=== PATIENT | male | born 1950 | race Caucasian/White ===

== ENCOUNTER 2020-11-21 06:07 | Outpatient (REF) | payer MEDICARE, SELFPAY ==
[2020-11-21 11:22] LABS: MANUAL DIFF FLAG NO
[2020-11-21 11:39] LABS: Basophils Absolute Auto 0.1 X10*3/uL (0.0-0.2); Basophils Percent Auto 0.9 % (0-2); Eosinophils Absolute Auto 0.2 X10*3/uL (0.0-0.4); Eosinophils Percent Auto 2.8 % (0-4); Hematocrit 47.7 % (42-52); Hemoglobin 15.7 g/dl (14.0-18.0); Imm Gran Abs Auto 0.03 X10*3/uL (0.00-0.03); Imm Gran Pct Auto 0.4 % (0.0-0.4); Lymphocytes Absolute Auto 1.1 X10*3/uL (1.2-4.9); Lymphocytes Percent Auto 16.3 % (20-40); Mean Corpuscular HGB Conc 32.9 g/dl (31.0-36.0); Mean Corpuscular Hemoglobin 31.9 pg (27.0-33.0); Mean Platelet Volume 9.8 fL (9.4-12.4); Monocytes Absolute Auto 0.7 X10*3/uL (0.1-1.2); Monocytes Percent Auto 10.2 % (2-11); Neutrophils Absolute Auto 4.8 X10*3/uL (2.0-8.3); Neutrophils Percent Auto 69.4 % (45-73); Platelet Count 201 X10*3/uL (160-400); Red Blood Count 4.92 X10*6/uL (4.60-5.80); Red Cell Distribution Width 12.9 % (11.0-16.0); White Blood Count 6.9 X10*3/uL (4.8-10.8)
[2020-11-21 11:56] LABS: Alanine Aminotransferase 18 U/L (0-40); Albumin Level 4.2 g/dL (3.5-5.0); Alkaline Phosphatase 46 U/L (39-117); Anion Gap 14 (12-20); Aspartate Amino Transferase 16 U/L (5-37); Bilirubin Total 0.9 mg/dL (0.0-1.0); Blood Urea Nitrogen 15 mg/dL (9-16); Calcium 8.9 mg/dL (8.4-10.2); Carbon Dioxide 30 mmol/L (22-29); Chloride 103 mmol/L (96-108); Cholesterol 158 mg/dL; Estimated Glomerular Filt Rate > 60; Glucose Fasting 140 mg/dL (60-99); HDL Cholesterol 43 mg/dL; LDL Cholesterol Calculated 77 mg/dl; Potassium 4.4 mmol/L (3.3-5.1); Sodium 143 mmol/L (135-145); Total Protein 6.6 g/dL (6.5-8.0); Triglycerides 194 mg/dL
[2020-11-21 12:20] LABS: Prostate Specific Antigen Scr 0.49 ng/mL (<0.05-4.0); T4 Thyroxine 5.4 ug/dL (4.5-12.0); Thyroid Stimulating Hormone 2.32 uIU/mL (0.32-4.0)
[2020-11-21 12:26] LABS: Creatinine Urine 166.68 mg/dL; Microalbum/Creatinine Ratio Ur 12.5 ug/mg cr
[2020-11-22 17:44] LABS: Folate 18.5 ng/mL (> or = 4.0); Vitamin B12 722 pg/mL (200-900)
== END 2020-11-21 06:08 | disposition home or self-care (01) ==
LOC: HO.HMGCLDS 06:07
PROVIDERS: PCP Internal Medicine; Visit Provider Internal Medicine
DX: E11.65 Type 2 diabetes mellitus with hyperglycemia (principal); E78.00 Pure hypercholesterolemia, unspecified; G62.9 Polyneuropathy, unspecified; J45.909 Unspecified asthma, uncomplicated; G47.33 Obstructive sleep apnea (adult) (pediatric); M54.5 Low back pain
CPT/HCPCS: 36415; 80053; 80061; 82043; 82607; 82746; 84153; 84436; 84443; 85025

== ENCOUNTER 2021-03-06 10:06 | Outpatient (REF) | payer MEDICARE, SELFPAY ==
--- NOTE | 2021-03-06 10:11 | ECG_ITS ---
Test Reason : SOB Blood Pressure : / mmHG Vent. Rate : 115 BPM Atrial Rate : 147 BPM P-R Int : 210 ms QRS Dur : 104 ms QT Int : 326 ms P-R-T Axes : 076 019 025 degrees QTc Int : 450 ms Sinus tachycardia with 1st degree A-V block with occasional Premature ventricular complexes and PACs Incomplete right bundle branch block Borderline ECG When compared with ECG of 06-APR-2009 08:20, Premature ventricular complexes are now Present NE interval has increased Vent. rate has increased BY 59 BPM Referred By: Daniel Romano Electronically Signed By:Prashant Navas
[2021-03-06 10:29] LABS: MANUAL DIFF FLAG NO
[2021-03-06 10:37] LABS: Basophils Absolute Auto 0.1 X10*3/uL (0.0-0.2); Basophils Percent Auto 0.6 % (0-2); Eosinophils Absolute Auto 0.2 X10*3/uL (0.0-0.4); Eosinophils Percent Auto 2.2 % (0-4); Hematocrit 46.4 % (42-52); Hemoglobin 15.6 g/dl (14.0-18.0); Imm Gran Abs Auto 0.05 X10*3/uL (0.00-0.03); Imm Gran Pct Auto 0.6 % (0.0-0.4); Lymphocytes Absolute Auto 1.5 X10*3/uL (1.2-4.9); Mean Corpuscular HGB Conc 33.6 g/dl (31.0-36.0); Mean Corpuscular Hemoglobin 31.8 pg (27.0-33.0); Mean Corpuscular Volume 94.7 fL (80-98); Mean Platelet Volume 9.3 fL (9.4-12.4); Monocytes Absolute Auto 0.7 X10*3/uL (0.1-1.2); Monocytes Percent Auto 8.7 % (2-11); Neutrophils Absolute Auto 5.4 X10*3/uL (2.0-8.3); Neutrophils Percent Auto 68.9 % (45-73); Platelet Count 218 X10*3/uL (160-400); Red Cell Distribution Width 12.5 % (11.0-16.0); White Blood Count 7.9 X10*3/uL (4.8-10.8)
[2021-03-06 11:02] LABS: B Type Natriuretic Peptide 37 pg/mL (<100)
[2021-03-06 11:11] LABS: Alanine Aminotransferase 21 U/L (0-40); Albumin Level 4.3 g/dL (3.5-5.0); Alkaline Phosphatase 43 U/L (39-117); Anion Gap 13 (12-20); Aspartate Amino Transferase 22 U/L (5-37); Blood Urea Nitrogen 12 mg/dL (9-16); Calcium 9.5 mg/dL (8.4-10.2); Carbon Dioxide 29 mmol/L (22-29); Chloride 103 mmol/L (96-108); Estimated Glomerular Filt Rate > 60; Glucose Random 129 mg/dL (60-115); Potassium 5.1 mmol/L (3.3-5.1); Sodium 140 mmol/L (135-145); Total Protein 6.7 g/dL (6.5-8.0)
== END 2021-03-06 10:07 | disposition home or self-care (01) ==
LOC: HO.LAB 10:06
PROVIDERS: PCP Internal Medicine; Visit Provider Internal Medicine
DX: R06.02 Shortness of breath (principal); N52.9 Male erectile dysfunction, unspecified
CPT/HCPCS: 36415; 80053; 83880; 85025; 93005

== ENCOUNTER → 2021-04-23 12:09 | Outpatient (REF) | payer MEDICARE, SELFPAY ==
--- NOTE | 2021-04-23 12:13 | CA_ITS ---
Transthoracic Echocardiogram Patient (Last, First, Middle): Festus Munoz R Gender: Male Date of : 1950 Age: 70 Procedure Date: 04/23/2021 Procedure Type: Transthoracic Echocardiogram Location: OP Height: 177.8 cm Weight: 136.08 kg BSA: 2.48 m2 Heart Rate: bpm BP: 134 / 70 mmHg Second Cook And Baker: TAD Referring MD: Daniel Romano MD Logistics Director: Jaime Bailey MD Symptoms: N52.9 - Male erectile dysfunction, unspecified Study Quality: Technically Difficult ECG Rhythm: Sinus Conclusions: - 1. Technically difficult study 2. Normal LV systolic function with impaired relaxation filling pattern 3. Cardiac valves not well visualized but cardiac valvular Doppler within normal limits 4. No gross pericardial effusion Findings Procedure Information The patient receives contrast. Left Ventricle Normal left ventricular size, thickness, and systolic function. The visually estimated ejection fraction is between 55-60%. Spectral Doppler is indicative of an impaired relaxation filling pattern. E/E prime ratio is between 8 and 15 consistent with indeterminate filling pressures. Right Ventricle The right ventricle was not well visualized. Atria The left atrium was not well visualized. Interatrial shunt cannot be excluded. The right atrium was not well visualized. Aortic Valve The aortic valve was not well visualized. There is no aortic valve stenosis. There is no aortic valve regurgitation. Mitral Valve The mitral valve was not well visualized. There is trace mitral valve regurgitation. There is no mitral valve stenosis. Pulmonic Valve The pulmonic valve was not well visualized. Tricuspid Valve The tricuspid valve was not well visualized. Tricuspid regurgitation envelope is inadequate for calculation of right ventricular systolic pressure. Great Vessels The aorta was not well visualized. The pulmonary artery was not well visualized. Venous The inferior vena cava is normal in size and collapses greater than 50% with inspiration. Pericardium/Pleural There is no evidence of pericardial effusion. Prior Study Comparison No previous study in the last 5 years for comparison Measurements 2D Linear Measurements RVIDd: 3.51 RVIDd Index: 1.42 IVSd: 0.83 0.6-0.9/0.6-1.0 cm LVIDd: 5.43 3.9-5.3/4.2-5.9 cm LVIDd Index: 2.19 2.4-3.2/2.2-3.1 cm/m2 LVIDs: 4.11 2.0-3.6 cm LVPWd: 1.08 0.7-1.1 cm Ao Root: 2.90 2.1-3.5 cm LA Diam: 4.50 2.7-3.8/3.0-4.0 cm LAIDs Index: 1.81 1.5-2.3 cm/m2 LV Mass: 245.09 67-162/88-224 g LV Mass Index: 98.83 43-95/49-115 g/m2 LVOT Diam: 2.20 3.0+(-)1.3 cm Mitral Valve MV Pk E: 0.65 MV PK A: 0.94 MV Decel Time: 207.00 E/A: 0.70 E'Lateral: 8.92 E'Medial: 6.64 E/E' Med: 9.80 E/E' Lat: 7.30 Aortic Valve AoV Pk Shai: 1.70 AoV Mn Shai: 1.38 AoV VTI: 0.33 AoV Pk Grad: 12.00 Aov Mn Grad: 8.00 BETTE Cont.VTI: 2.22 LVOT LVOT Pk Shai: 0.91 LVOT Mn Shai: 0.61 LVOT VTI: 0.19 LVOT Pk Grad: 3.00 LVOT Mn Grad: 2.00 LVOT Diam: 2.20 LVOT Area: 3.80 Diastolic Function MV Pk E: 0.65 MV Pk A: 0.94 E/A: 0.70 E'Medial: 6.64 E/E' Med: 9.80 E' Laterial: 8.92 E/E' Lat: 7.30 Tricuspid Valve RA Press: 8.00 Great Vessels Aorta Ao Root-2D: 2.90 2.0-3.7 cm Ao Asc: 3.70 2.1-3.4 cm Ao Arch: 3.70 Updated in Other Vendor System with Status of Final Jaime Bailey MD electronically signed on 04/23/2021 5:15:17 PM with status of Final
== END ==
LOC: HO.CARD 12:09
PROVIDERS: Visit Provider Internal Medicine
DX: N52.9 Male erectile dysfunction, unspecified (principal)
CPT/HCPCS: 93306; Q9957

== ENCOUNTER 2021-11-24 11:13 | Emergency (ER) | payer MEDICARE, SELFPAY ==
--- NOTE | ~2021-11-24 | CT_ITS ---
EXAMINATION: CT HEAD WITHOUT CONTRAST CT CERVICAL SPINE WITHOUT CONTRAST CLINICAL INFORMATION: Fall. Head injury. COMPARISON: No relevant prior imaging. TECHNIQUE: Biometrics Experimentalist images were obtained. CT imaging of the head and cervical spine was performed without contrast. Data was reformatted into multiplanar images at the acquisition workstation. This CT examination was performed using dose optimization techniques as appropriate, including one or more of the following: Automated exposure control, iterative reconstruction, and adjustment of technique factors (mA and/or kVp) according to patient size (this includes techniques or standardized protocols for targeted exams where dose is matched to indication/reason for exam). DLP: 1676 mGy-cm. FINDINGS: Head: There is no acute intracranial hemorrhage or abnormal extra-axial collection. No intracranial mass effect or hydrocephalus. Lateral and third ventricles are normal. A few scattered nonspecific foci of hypoattenuation are visualized within the periventricular white matter that most likely represent a chronic manifestation of small vessel ischemia. Oswald-white matter differentiation is otherwise preserved and there is no evidence of acute territorial infarct. The calvarium and skull base are intact. Mastoid air cells and middle ear cavities are well aerated. No active paranasal sinus disease. Cervical spine: There is nonspecific straightening of the cervical lordosis. Alignment is otherwise normal. Vertebral heights are preserved. Bridging bone fuses the C3 and C4 vertebral segments. There is also an exuberant anterior disc osteophyte complex that fuses the C7 and T1 vertebra. No evidence of acute fracture. No abnormal prevertebral soft tissue swelling. There is advanced degenerative arthrosis of the atlantodental joint. Canal patency is not well assessed on this examination due to inherent limitations of CT without intrathecal contrast. Bulging discs in conjunction with buckling of the ligamenta flava causes at least mild canal stenosis at multiple levels. Visualized soft tissues of the neck including the thyroid gland are normal. Lung apices are clear. CT/CT head/brain wo con IMPRESSION: Head: No acute intracranial hemorrhage. There are a few scattered chronic small vessel ischemic changes within the periventricular white matter. No evidence of acute territorial infarct. Cervical spine: There is no acute fracture and no posttraumatic spinal subluxation. There is advanced multilevel degenerative spondylosis of the cervical spine. Bulging discs in conjunction with buckling of the ligamenta flava causes at least mild canal stenosis at multiple levels. If there are clinical symptoms of compressive myelopathy then a dedicated cervical spine MRI can be obtained for better anatomic characterization of the cord and canal.
--- NOTE | ~2021-11-24 | XR_ITS ---
EXAMINATION: XR SHOULDER, LEFT CLINICAL INFORMATION: Fall COMPARISON: None TECHNIQUE: 3 views of the left shoulder. FINDINGS: Bone alignment is normal. No fracture or dislocation is seen. There is arthritis at the glenohumeral and acromioclavicular joints. Soft tissues are unremarkable. XR/XR shoulder LT min 2V IMPRESSION: Severe arthritis. No fracture or dislocation.
[2021-11-24 11:21] VITALS: BP 173/95; PULSE 81; O2SAT 95
[2021-11-24 12:44] VITALS: BP 157/84; PULSE 75; RESP 16; TEMP 36.4; O2SAT 95; BMI 43.2
[2021-11-24] MEDS: oxyCODONE HCl Immed Release 5 MG TABLET PO (14:01)
[2021-11-24 14:52] VITALS: BP 138/67; PULSE 80; RESP 18; TEMP 36.3; O2SAT 94
--- NOTE | 2021-11-24 15:47 | ED.FALL ---
HPI - Fall General Chief Complaint: Fall Stated Complaint: L SHOULDER PAIN S/P FALL Time Seen by Provider: 11/24/21 13:43 Source: patient Mode of arrival: ambulatory Limitations: no limitations History of Present Illness HPI Narrative: 71-year-old male presents to ED for fall. Patient states yesterday he was doing some [employer] work outside and he slipped and tripped and fell onto his left shoulder. Patient denies hitting head or loss of consciousness. Patient did not want to come to the hospital but brought him to the ED today to be evaluated. Patient denies having any chest pain, headache, dizziness, abdominal pain, or shortness of breath before falling. Patient slipped and fell Patient only states taking aspirin. Related Data Home Medications Medication Instructions Recorded Confirmed CPAP #1 ea 12/03/20 09/18/21 Previous Rx's Medication Instructions Recorded sildenafil 100 mg tablet 100 mg PO DAILY PRN #4 tab 03/05/21 lisinopril 5 mg tablet 5 mg PO DAILY #90 tab 03/10/21 metformin 500 mg tablet 500 mg PO DAILY 90 Days #90 tab 03/10/21 simvastatin 40 mg tablet 40 mg PO BEDTIME #90 tab 03/10/21 trazodone 100 mg tablet 100 mg PO BEDTIME 90 Days #90 tab 03/10/21 gabapentin 600 mg tablet 600 mg PO BID 90 Days #180 tab 06/10/21 semaglutide (Ozempic) 0.5 mg (0.4 mL) SUBCUT QWEEK 30 09/18/21 Days #2 ml oxycodone-acetaminophen 5 mg-325 1 tab PO Q8H PRN #9 tab 11/24/21 mg tablet (Percocet) Allergies Allergy/AdvReac Type Severity Reaction Status Date / Time terbinafine [From LAMISIL] AdvReac Intermediate GI UPSET Verified 09/18/21 08:44 Lamisil Allergy Unknown Stomach Uncoded 03/05/21 10:33 Upset Review of Systems Review of Systems: left shoulder pain Yes all other systems are reviewed and are negative [facility] Past Medical History Medical History (Updated 11/24/21 @ 16:12 by TRISTA Perez) Aortic dilatation Asthma Cholelithiasis Chronic low back pain Erectile dysfunction Hypercholesterolemia Hypertension Obesity Obstructive sleep apnea Peripheral neuropathy Type 2 diabetes mellitus with hyperglycemia Surgical History H/O lumbar discectomy History of left knee replacement History of pericardiectomy History of right hip replacement History of total right knee replacement S/P ORIF (open reduction internal fixation) fracture Family History Family History (Updated 06/10/21 @ 08:44 by DAVID Reid) Mother Mental health disorder Social History Social History Housing: House Alcohol intake: current Alcohol intake frequency: a few times a week Patient Tobacco Use Status: Former Tobacco user Years Smoked: stopped 1994 e-Cigarette/Vaping Use: Never Used Second Hand Smoke Exposure: Yes Advance Directives: Yes Advance Directives Information Provided: No Advance Directives on File: No service: Yes Current occupational status: retired Physical Exam Vital Signs: Vital Signs: Last Vital Signs Temp 97.4 F 11/24/21 14:52 Pulse 80 11/24/21 14:52 Resp 18 11/24/21 14:52 BP 138/67 11/24/21 14:52 Pulse Ox 94 11/24/21 14:52 BMI result Body Mass Index 43.2 Const: General: cooperative, healthy appearing, comfortable, no acute distress and well developed Orientation/consciousness: patient oriented x3 HENMT: Head: Yes normal to inspection, Yes No palpable skull fracture present, Yes normocephalic, Yes atraumatic and No abrasion Eyes: General: appearance normal, both eyes and all related structures Neck: Neck: Yes normal visual inspection, Yes full ROM, Yes no lymphadenopathy, Yes no meningeal signs, Yes trachea midline, Yes supple, No anterior neck swelling and No tender Chest: Chest palpation & inspection: normal inspection of the chest and normal palpation of entire chest wall Resp: Effort & Inspection: normal respiratory effort and able to speak in complete sentences Auscultation: clear to auscultation bilaterally Cardio: Jugular venous distension: no JVD Heart sounds: S1 normal heart sound present and S2 normal heart sound present GI: Inspection: Yes normal to inspection and No abdominal wall ecchymosis Palpation (GI): Soft to palpation, not firm, nontender, no guarding and not rigid : General: No CVA tenderness and Yes no CVA tenderness Back/Spine/Pelvis: Back: no CVA tenderness, No CVA tenderness and No back tenderness Skin: General skin exam: no rashes or lesions noted and elasticity normal Neuro: General: patient oriented x3, gait normal, tone normal, no meningeal signs and CN's II-XI intact bilaterally Extrem: General: Yes normal to inspection and Yes full ROM Shoulder/upper arm images: 1. positive for ecchymosis on inspection. Positive for tenderness on palpation. Negative for any crepitus. Patient able to move shoulder but with pain. Motor/ neuro /vascular intact. Negative for erythema. Psych: Appearance: grossly normal, well kempt and not disheveled Course Course Course Narrative: Patient denies hitting head on the ground but showed video which showed patient falling and hitting his hand on the bottom of a stand. pATIENT'S head SEENED HITTING the botTOM OF STAND WHEN HE FELL BUT HE STATES thAT t there was no contact to his head but and I think otherwise so head CT scan cervical spine ordered. Shoulder x-ray ordered. Reevaluation(s) Reevaluation #1: Head CT normal. Cervical spine shows disc bulging but no fracture. Shoulder x-ray normal. Patient given oxycodone for pain relief. PATIENT GIVEN COPY OF IMAGING TOLD TO FOLLOW WITH PRIMARY CARE PROVIDER. PATIENT PLACED IN SLING INFORMED NOT TO KEEP ARM IN SLING ALL THE TIME DUE TO FROZEN SHOULDER. Time: 16:02 MDM - Fall MDM Narrative Medical decision making narrative: fall. Shoulder contusion. Shoulders pain Discharge Plan Discharge Clinical Impression: Acute shoulder pain, Bulging of cervical intervertebral disc Patient Disposition: Home, Self-Care Additional Instructions: x-ray came back negative for any fracture. Head CT and cervical spine came back negative for any brain bleed on neck fracture. Cervical spine CT shows disc bulging. You be discharged with pain medication. Please follow-up primary care provider for MRI of shoulder if pain does not improve. Please follow-up with primary care provider Prescriptions: New oxycodone-acetaminophen [Percocet] 5-325 mg tablet 1 tab PO Q8H PRN (Reason: pain) Qty: 9 0RF Rx Instructions: side effect is drowsiness. Do not take at home or while driving. No Action trazodone 100 mg tablet 100 mg PO BEDTIME 90 Days Qty: 90 3RF metformin 500 mg tablet 500 mg PO DAILY 90 Days Qty: 90 3RF simvastatin 40 mg tablet 40 mg PO BEDTIME Qty: 90 3RF lisinopril 5 mg tablet 5 mg PO DAILY Qty: 90 3RF (DME) CPAP 0 .Route .MEDSUPPLY Qty: 1 0RF sildenafil 100 mg tablet 100 mg PO DAILY PRN (Reason: sexual activity) Qty: 4 5RF Rx Instructions: administer 30 minutes to 4 hours before activity gabapentin 600 mg tablet 600 mg PO BID 90 Days Qty: 180 3RF Ozempic 0.25 mg or 0.5 mg(2 mg/1.5 mL) pen injector 0.5 mg subcut QWEEK 30 Days Qty: 2 3RF Rx Instructions: for 4 doses Interventions: ED Discharge Assessment Last Done: 11/24/21 16:32 Discharge Date/Time: 11/24/21 16:32 Print Language: Chilean
== END 2021-11-24 16:32 | disposition home or self-care (01) ==
PROVIDERS: Emergency Provider Emergency Medicine; PCP Internal Medicine
DX: G89.11 Acute pain due to trauma (principal); M25.512 Pain in left shoulder; M50.83 Other cervical disc disorders, cervicothoracic region; I10 Essential (primary) hypertension; E11.9 Type 2 diabetes mellitus without complications
CPT/HCPCS: 70450; 72125; 73030; 99284

== ENCOUNTER 2021-12-19 06:06 | Outpatient (REF) | payer MEDICARE, SELFPAY ==
[2021-12-19 11:43] LABS: MANUAL DIFF FLAG NO
[2021-12-19 11:49] LABS: Basophils Absolute Auto 0.1 X10*3/uL (0.0-0.2); Basophils Percent Auto 0.9 % (0-2); Eosinophils Absolute Auto 0.3 X10*3/uL (0.0-0.4); Hematocrit 44.3 % (42.0-52.0); Hemoglobin 14.4 g/dl (14.0-18.0); Imm Gran Abs Auto 0.04 X10*3/uL (0.00-0.03); Imm Gran Pct Auto 0.6 % (0.0-0.4); Lymphocytes Absolute Auto 1.2 X10*3/uL (1.2-4.9); Lymphocytes Percent Auto 17.8 % (20-40); Mean Corpuscular HGB Conc 32.5 g/dl (31.0-36.0); Mean Corpuscular Hemoglobin 32.7 pg (27.0-33.0); Mean Corpuscular Volume 100.7 fL (80.0-98.0); Mean Platelet Volume 9.5 fL (9.4-12.4); Monocytes Absolute Auto 0.8 X10*3/uL (0.1-1.2); Monocytes Percent Auto 11.4 % (2-11); Neutrophils Absolute Auto 4.5 x10*3/uL (2.0-8.3); Neutrophils Percent Auto 65.3 % (45-73); Platelet Count 214 X10*3/uL (160-400); Red Cell Distribution Width 13.3 % (11.0-16.0); White Blood Count 6.9 X10*3/uL (4.8-10.8)
[2021-12-19 12:04] LABS: Alanine Aminotransferase 28 U/L (0-40); Albumin Level 3.9 g/dL (3.5-5.0); Alkaline Phosphatase 90 U/L (39-117); Anion Gap 13 (12-20); Aspartate Amino Transferase 21 U/L (5-37); Bilirubin Total 0.7 mg/dL (0.0-1.0); Blood Urea Nitrogen 14 mg/dL (9-16); Carbon Dioxide 31 mmol/L (22-29); Chloride 103 mmol/L (96-108); Cholesterol 155 mg/dL; Estimated Glomerular Filt Rate > 60; Glucose Random 148 mg/dL (60-115); HDL Cholesterol 47 mg/dL; LDL Cholesterol Calculated 87 mg/dl; Potassium 4.7 mmol/L (3.3-5.1); Sodium 142 mmol/L (135-145); Total Protein 6.2 g/dL (6.5-8.0); Triglycerides 106 mg/dL
[2021-12-19 12:18] LABS: Estimated Average Glucose 134 mg/dL; Hemoglobin A1c % 6.3 %
[2021-12-19 12:26] LABS: Free T4 (Free Thyroxine) 0.96 ng/dL (0.71-1.85); Prostate Specific Antigen Scr 0.43 ng/mL (<0.05-4.0); Thyroid Stimulating Hormone 1.71 uIU/mL (0.32-4.0)
[2021-12-19 12:37] LABS: Creatinine Urine 160.03 mg/dL; Microalbum/Creatinine Ratio Ur 6.8 ug/mg cr
[2021-12-19 12:55] LABS: Folate 17.5 ng/mL (> or = 4.0); Vitamin B12 847 pg/mL (200-900)
== END 2021-12-19 06:07 | disposition home or self-care (01) ==
LOC: HO.HMGCLDS 06:06
PROVIDERS: PCP Internal Medicine; Visit Provider Internal Medicine
DX: Z12.5 Encounter for screening for malignant neoplasm of prostate (principal); E11.65 Type 2 diabetes mellitus with hyperglycemia; E78.00 Pure hypercholesterolemia, unspecified
CPT/HCPCS: 36415; 80053; 80061; 82043; 82607; 82746; 83036; 84153; 84439; 84443; 85025

== ENCOUNTER 2022-03-04 07:00 | Outpatient (RCR) | payer MEDICARE, SELFPAY ==
--- NOTE | 2022-01-09 11:13 | MHC.PT.EP ---
[facility] [place] Office [place] Office [place] Office [address] [phone] F: [phone] F: [phone] F: [phone] F: [phone] Physical Therapy Plan of Care Date of Evaluation: Date of Surgery: n/a Diagnosis: Pain in L shoulder Assessment: Patient is a 71 year old R handed male who presents with s/s consistent with L shoulder pain. 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 Patient past medical history includes L frozen shoulder, R femur fracture, 2 TKA and 1 OSKAR. Current impairments include pain, posture, ROM, strength, activity tolerance and functional mobility. Functional limitations include decreased ability to use L UE for all functional actvities. Patient is motivated with good rehab potential. Skilled PT will address impairments and functional limitations in order to achieve goals. Frequency and Duration: The patient will be seen 2x/week for 5 weeks Short Term Goals: I with HEP - 2 weeks AROM flexion and abduction to 80 - 3 weeks Able to ER to neutral with AROM - 3 weeks Long-Term Goals: AROM flexion and abd to 120, ER to 30 - 5 weeks Strength 4/5 grossly - 5 weeks SPADI 20/130 or better - 5 weeks Treatment Plan: Modalities to reduce pain, spasms and effusion. Manual therapy to restore motion and function. Therapeutic exercise to improve strength and flexibility. Neuromuscular re-education for posture and balance. Therapeutic activities to return to functional activities of daily living. Electronically signed by: Sandeep Harmon PT Please sign and return to therapist. Thank you for your referral.
--- NOTE | 2022-06-04 10:26 | MHC.PT.DC ---
[facility] [place] Office [place] Office [place] Office [address] [phone] F: [phone] F: [phone] F: [phone] F: [phone] Physical Therapy Discharge Report Diagnosis: Pain in L shoulder Date of Surgery: n/a Date of Evaluation: 01/08/22 Date of Discharge: 03/16/22 Treatments to Date: 14 Cancellations to Date: No Shows to Date: Discharge Status: Improved Function Independent with HEP Discharge Summary: 03/04/22: I with HEP. AAROM flexion to 102. ER to 20 AROM. Strenght 4-/5 grossly with available ROM. SPADI 13/130. Pain 3/10 with daily activities. He did progress well and is much closer to baseline before shoulder injury. He is appropriate to d/c to HEP at this time. 03/02/22: pt I with program. issued all necessary bands. we will plan to d/c to HEP NV. 02/25/22: pt with no new s/s. progressed with strength. as pt progress on ROM has slowed, we discussed plan and we will plan to d/c to HEP Next Week! 02/23/22: pt has been feeling improved strength. we added 2.2# in supine with good response. he may be reaching his max for ROM improvement as per his report he is similar to where he was prior to injury. 02/20/22: pt has been having less pain. more functional strength noted with functional/daily activities including working at the [employer]. we will continue to progress while he is improving and discern when to transition to HEP. 02/18/22: returning after covid. no adverse reactions. he was able to keep up with PT though missed appts. ROM is still improving slowly 02/05/22: we added adduction to shoulder strength. no adverse reactions. pt is progressing but slowly, likely due to chronic shoulder pathology. 02/02/22: pt flexion still improving slowly. very little resistance tolerated with flexion. moves with compensated pattern suggesting persistent RTC injury. 01/28/22: progressing with ROM and strength. pt demonstrating good carryover with ex. still with significant compensation strategies. 01/26/22: pt progressing well with ROM. adding strength intervention as appropriate. notes functional improvements related to strength use of LUE 01/21/22: pt has been compliant with HEP. progressed today with ex, reps and resistance. continue to progress as tolerated. AAROM flexion to 94. 01/14/22: pt progressed with ROM with cane. to issue updated HEP NV barring any setbacks with HEP. 01/12/22: pt progressed with strength and ROM. purchased pulleys for home and initiated this in HEP. continue to progress as tolerated. ER still short of neutral. Patient is a 71 year old R handed male who presents with s/s consistent with L shoulder pain. 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 Patient past medical history includes L frozen shoulder, R femur fracture, 2 TKA and 1 OSKAR. Current impairments include pain, posture, ROM, strength, activity tolerance and functional mobility. Functional limitations include decreased ability to use L UE for all functional actvities. Patient is motivated with good rehab potential. Skilled PT will address impairments and functional limitations in order to achieve goals. Electronically signed by: Sandeep Harmon, PT Please sign and return to therapist. Thank you for your referral.
== END 2022-06-04 10:26 | disposition home or self-care (01) ==
LOC: HO.PTCHIC 07:00
PROVIDERS: PCP Internal Medicine; Visit Provider Internal Medicine
DX: M25.512 Pain in left shoulder (principal); W19.XXXD Unspecified fall, subsequent encounter
CPT/HCPCS: 97110; 97162

== ENCOUNTER 2023-03-03 06:01 | Outpatient (REF) | payer MEDICARE, SELFPAY ==
[2023-03-03 11:14] LABS: MANUAL DIFF FLAG NO
[2023-03-03 11:24] LABS: Basophils Absolute Auto 0.1 X10*3/uL (0.0-0.2); Basophils Percent Auto 0.7 % (0-2); Eosinophils Absolute Auto 0.2 X10*3/uL (0.0-0.4); Hemoglobin 14.8 g/dl (14.0-18.0); Imm Gran Abs Auto 0.04 X10*3/uL (0.00-0.03); Imm Gran Pct Auto 0.5 % (0.0-0.4); Lymphocytes Absolute Auto 1.4 X10*3/uL (1.2-4.9); Lymphocytes Percent Auto 18.3 % (20-40); Mean Corpuscular HGB Conc 32.9 g/dl (31.0-36.0); Mean Corpuscular Hemoglobin 32.2 pg (27.0-33.0); Mean Corpuscular Volume 97.8 fL (80.0-98.0); Mean Platelet Volume 9.9 fL (9.4-12.4); Monocytes Absolute Auto 0.8 X10*3/uL (0.1-1.2); Monocytes Percent Auto 10.9 % (2-11); Neutrophils Percent Auto 67.6 % (45-73); Platelet Count 213 X10*3/uL (160-400); Red Cell Distribution Width 13.2 % (11.0-16.0); White Blood Count 7.4 X10*3/uL (4.8-10.8)
[2023-03-03 11:46] LABS: Estimated Average Glucose 126 mg/dL
[2023-03-03 12:01] LABS: Alanine Aminotransferase 23 U/L (0-40); Albumin Level 3.9 g/dL (3.5-5.0); Alkaline Phosphatase 43 U/L (39-117); Anion Gap 12 (12-20); Aspartate Amino Transferase 22 U/L (5-37); Bilirubin Total 1.5 mg/dL (0.0-1.0); Blood Urea Nitrogen 14 mg/dL (9-16); Calcium 9.7 mg/dL (8.4-10.2); Carbon Dioxide 28 mmol/L (22-29); Chloride 103 mmol/L (96-108); Cholesterol 154 mg/dL; Estimated Glomerular Filt Rate > 60; Glucose Random 143 mg/dL (60-115); HDL Cholesterol 41 mg/dL; LDL Cholesterol Calculated 92 mg/dl; Sodium 138 mmol/L (135-145); Total Protein 6.7 g/dL (6.5-8.0); Triglycerides 108 mg/dL
[2023-03-03 12:14] LABS: Creatinine Urine 141.75 mg/dL; Microalbum/Creatinine Ratio Ur 23.2 ug/mg cr
[2023-03-03 12:24] LABS: Folate 16.3 ng/mL (> or = 4.0); Vitamin B12 828 pg/mL (200-900)
== END 2023-03-03 06:02 | disposition home or self-care (01) ==
LOC: HO.HMGCLDS 06:01
PROVIDERS: PCP Internal Medicine; Visit Provider Internal Medicine
DX: E11.65 Type 2 diabetes mellitus with hyperglycemia (principal); E78.00 Pure hypercholesterolemia, unspecified
CPT/HCPCS: 36415; 80053; 80061; 82043; 82607; 82746; 83036; 84443; 85025

== ENCOUNTER 2023-06-21 11:22 | Outpatient (AMB) | payer MEDICARE, SELFPAY ==
[2023-06-21 11:30] VITALS: BP 132/68; PULSE 72; O2SAT 93; BMI 43.5
--- NOTE | 2023-06-21 11:30 | MHC.PC.OV ---
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 Allergies terbinafine [From LAMISIL] Adverse Reaction (Intermediate, Verified 06/21/23 11:31) GI UPSET Lamisil Allergy (Unknown, Uncoded 06/21/23 11:31) Stomach Upset Medication List - Last Reconciled 06/21/23 by Daniel Romano MD [CPAP ] fluticasone propionate 50 mcg/actuation (Flonase Allergy Relief) 2 sprays intranasal DAILY gabapentin 600 mg PO BID 90 days lactulose 20 grams (30 mL) PO BID lisinopril 5 mg PO DAILY metformin 500 mg PO BID 90 days semaglutide 2 mg (0.75 mL) subcut QWEEK 90 days sildenafil 100 mg PO DAILY PRN simvastatin 40 mg PO BEDTIME trazodone 100 mg PO BEDTIME 90 days Tobacco use date assessed: 06/21/23 Fall risk assessment: No Falls in past year Last assessed Fall Risk: 06/21/23 Dental Screening Dental Screen Date: 06/21/23 Did you have a dental visit in the last 12 months?: Yes Did you have a dental problem in the last 6 months where you did not have access to dental care?: No Was dental information given to patient?: Patient has dentist HPI 3 month f/u HPI Details 73-year-old obese male with controlled diabetes mellitus hypertension asthma hypercholesterolemia obstructive sleep apnea coming in for follow-up. Last seen in February 2023. Patient's colonoscopy is up-to-date [facility] Medical History (Updated 03/11/23 @ 11:38 by Daniel Romano MD) Aortic dilatation Cholelithiasis Obstructive sleep apnea Erectile dysfunction Hypercholesterolemia Obesity Peripheral neuropathy Asthma Type 2 diabetes mellitus with hyperglycemia Chronic low back pain Hypertension Surgical History S/P ORIF (open reduction internal fixation) fracture History of left knee replacement History of total right knee replacement History of right hip replacement History of pericardiectomy H/O lumbar discectomy Family History (Updated 06/10/21 @ 08:44 by DAVID Reid) Mother Mental health disorder Social History (Updated 03/11/23 @ 11:43 by Daniel Romano MD) Housing: House Alcohol intake: current Alcohol intake frequency: a few times a week Patient Tobacco Use Status: Former Tobacco user Years Smoked: stopped 1994 e-Cigarette/Vaping Use: Never Used Second Hand Smoke Exposure: Yes service: Yes Current occupational status: retired Cognitive needs: No Hearing needs: Yes Vision needs: Yes Questionnaire Thrive Questionnaire Date Thrive assessed: 10/15/22 AUDIT C Alcohol Use Questionnaire (AUDIT-C) 1. How often do you have a drink containing alcohol?: 2-4 times a month 2. How many drinks containing alcohol do you have on a typical day when you are drinking?: 1 or 2 3. How often do you have six or more drinks on one occasion?: Never Total Score: 2 NAMITA-7 AMB Questionnaire NAMITA-7 Date NAMITA - 7 assessed: 10/15/22 Source: Developed by Drs. Mac Echeverria, Supriya Weston, Kyle Moon and colleagues, with an educational teofilo from [employer]. Physical exam (Primary Care) Vital Signs: Last Vital Signs Pulse 72 06/21/23 11:30 BP 132/68 06/21/23 11:30 Pulse Ox 93 06/21/23 11:30 Oxygen Delivery Method Room Air 06/21/23 11:30 BMI result Body Mass Index 43.5 Tobacco/Smoking Status: Tobacco use Status Tobacco use date assessed 06/21/23 06/21/23 11:32 Patient Tobacco Use Status Former Tobacco user 06/21/23 11:32 e-Cigarette/Vaping Use Never Used 06/21/23 11:32 Thrive Assessment: Date of Thrive Assessment Date Thrive assessed 10/15/22 06/21/23 11:32 Const General: alert; No acute distress Eyes Conjunctivae: conjunctivae normal Resp Auscultation: clear to auscultation bilaterally Cardio Rate: regular rate Rhythm: regular rhythm GI Inspection: Yes normal to inspection Extrem General: Yes normal to inspection and No edema Results AMB Hemoglobin A1c AMB Hemoglobin A1c 6.2 % Last Edit by DAVID Frost on 06/21/23 11:49 Results Reviewed Results Reviewed: Laboratory Last Values Hgb A1c (Clinic) 6.2 % (4.0-6.0) H 10/09/23 11:32 Assessment and Plan Assessment & Plan (1) Type 2 diabetes mellitus with hyperglycemia: Comment: [place] 06/2022 Code(s): E11.65 - Type 2 diabetes mellitus with hyperglycemia Qualifiers: Diabetes mellitus intermission coordinator insulin use: without assisted use Qualified Code(s): E11.65 - Type 2 diabetes mellitus with hyperglycemia Plan: Decrease the amount of carbohydrate intake, pasta, bread, rice and potatoes are all sugar and that is aside from all the sweet stuff, remember that fruits are good but they are Sweet also. 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 Decrease salt intake and exercise continue with lisinopril 5 mg once a day (3) Obesity: Code(s): E66.9 - Obesity, unspecified Qualifiers: Obesity type: due to excess calories Obesity classification: adult class 3 (BMI >= 40) Serious obesity comorbidity presence: with serious comorbidity Body mass index: BMI 45.0-49.9 Qualified Code(s): E66.01 - Morbid (severe) obesity due to excess calories; Z68.42 - Body mass index [BMI] 45.0-49.9, adult Plan: Diet and exercise (4) Hypercholesterolemia: Code(s): E78.00 - Pure hypercholesterolemia, unspecified Plan: Avoid fried foods, chicken skin, eggs, butter margarine, pastries and meat. Be it pork or beef they have a lot of cholesterol LDL goal of less than 100 and triglyceride of less than 150. Patient is on simvastatin 40 mg once a (5) Obstructive sleep apnea: Comment: September 2021 uses the CPAP every night an benefits from this Code(s): G47.33 - Obstructive sleep apnea (adult) (pediatric) Plan: Continue with CPAP more than 4 hours a night and benefits from Orders: Orders AMB Hemoglobin A1c Today E11.65 - Type 2 diabetes mellitus with hyperglycemia Medications: Changed From semaglutide 1 mg (0.75 mL) subcut QWEEK 90 days 9.75 mL 3RF E11.65 - Type 2 diabetes mellitus with hyperglycemia To semaglutide 2 mg (0.75 mL) subcut QWEEK 90 days 9.75 mL 3RF E11.65 - Type 2 diabetes mellitus with hyperglycemia Coding Level of Care Code Est Pt Level 4 (32466) Diagnoses Type 2 diabetes mellitus with hyperglycemia, without long-term current use of insulin E11.65 Diabetes mellitus intermission coordinator insulin use: without intermission coordinator use Essential hypertension I10 Hypertension type: essential hypertension Class 3 severe obesity due to excess calories with serious comorbidity and body mass index (BMI) of 45.0 to 49.9 in adult E66.01; Z68.42 Obesity type: due to excess calories Obesity classification: adult class 3 (BMI >= 40) Serious obesity comorbidity presence: with serious comorbidity Body mass index: BMI 45.0-49.9 Hypercholesterolemia E78.00 Obstructive sleep apnea G47.33
== END 2023-06-21 12:30 | disposition home or self-care (01) ==
PROVIDERS: PCP Internal Medicine; Visit Provider Internal Medicine
DX: E11.65 Type 2 diabetes mellitus with hyperglycemia (principal); I10 Essential (primary) hypertension; E66.01 Morbid (severe) obesity due to excess calories; Z68.42 Body mass index [BMI] 45.0-49.9, adult; E78.00 Pure hypercholesterolemia, unspecified; G47.33 Obstructive sleep apnea (adult) (pediatric)
CPT/HCPCS: 83036; 99214

== ENCOUNTER 2023-10-07 11:24 | Outpatient (AMB) | payer MEDICARE, SELFPAY ==
[2023-10-07 11:32] VITALS: BP 100/72; PULSE 67; O2SAT 91; BMI 43.0
--- NOTE | 2023-10-07 11:32 | A.OFFPC_ITS ---
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 Allergies terbinafine [From LAMISIL] Adverse Reaction (Intermediate, Verified 10/07/23 11 :42) GI UPSET Lamisil Allergy (Unknown, Uncoded 10/07/23 11:42) Stomach Upset Medication List - Last Reconciled 10/07/23 by Daniel Romano MD [CPAP ] fluticasone propionate 50 mcg/actuation (Flonase Allergy Relief) 2 sprays intran raquel DAILY gabapentin 600 mg PO BID 90 days lactulose 20 grams (30 mL) PO BID lisinopril 5 mg PO DAILY metformin 500 mg PO BID 90 days semaglutide 2 mg (0.75 mL) subcut QWEEK 90 days sildenafil 100 mg PO DAILY PRN simvastatin 40 mg PO BEDTIME trazodone 100 mg PO BEDTIME 90 days Tobacco use date assessed: 10/07/23 Fall risk assessment: No Falls in past year Last assessed Fall Risk: 10/07/23 Dental Screening Dental Screen Date: 10/07/23 Did you have a dental visit in the last 12 months?: Yes Did you have a dental problem in the last 6 months where you did not have access to dental care?: No Was dental information given to patient?: Patient has dentist HPI DM HPI Details 73-year-old morbidly obese male with sierra betes mellitus hypertension hypercholesterolemia and obstructive sleep apnea last seen in June 2023. Patient's colonoscopy last done in 2018 10 years patient does follow-up with Podiatry. And as for the vaccine had COVID and flu shot in June 2023. PAtient states n ot able to get the semaglutide [facility] Medical History (Updated 03/11/23 @ 11:38 by Daniel Romano MD) Aortic dilatation Cholelithiasis Obstructive sleep apnea Erectile dysfunction Hypercholesterolemia Obesity Peripheral neuropathy Asthma Type 2 diabetes mellitus with hyperglycemia Chronic low back pain Hypertension Surgical History S/P ORIF (open reduction internal fixation) fracture History of left knee replacement History of total right knee replacement History of right hip replacement History of pericardiectomy H/O lumbar discectomy Family History (Updated 06/10/21 @ 08:44 by DAVID Reid) Mother Mental health disorder Social History (Updated 03/11/23 @ 11:43 by Daniel Romano MD) Housing: House Alcohol intake: current Alcohol intake frequency: a few times a week Patient Tobacco Use Status: Former Tobacco user Years Smoked: stopped 1994 e-Cigarette/Vaping Use: Never Used Second Hand Smoke Exposure: Yes service: Yes Current occupational status: retired Cognitive needs: No Hearing needs: Yes Vision needs: Yes Questionnaire PHQ-9 Over the last 2 weeks, how often have you been bothered by any of the following problems? 1. Little interest or pleasure in doing things: not at all 2. Feeling down, depressed, or hopeless: not at all 3. Trouble falling or staying asleep, or sleeping too much: not at all 4. Feeling tired or having little energy: not at all 5. Poor appetite or overeating: not at all 6. Feeling bad about yourself - or that you are a failure or have let yourself or your family down: not at all 7. Trouble concentrating on things, such as reading the newspaper or watching television: not at all 8. Moving or speaking so slowly that other people could have noticed. Or the opposite - being so fidgety or restless that you have been moving around a lot more than usual: not at all 9. Thoughts that you would be better off or of hurting yourself in some way: not at all Total score: 0 Depression Screening Interpretation: Negative Depression Screening Done: Yes Source: Developed by Drs. Mac Echeverria, Supriya Weston, Kyle Moon and colleagues, with an educational teofilo from [employer]. Thrive Questionnaire Date Thrive assessed: 10/07/23 I am a: Patient What is your living situation today?: I have a steady place to live Within the past 12 months, did the food you bought not last and you didn't have the money to get more?: Never true Within the past 12 months, did you worry whether your food would run out before you got money to buy more?: Never true Do you have trouble paying for medicines?: No Do you have trouble getting transportation to medical appointments?: No Do you have trouble paying your heating and electricity bill?: No Do you have trouble taking care of your child, family member or friend?: No Do you have trouble with day-to-day activities such as bathing, preparing meals, shopping, managing finances, etc.?: No Are you currently unemployed and looking for a job?: No Are you interested in more education?: No Please select the resources that you would like help with: None THRIVE Score: 0 AUDIT C Alcohol Use Questionnaire (AUDIT-C) 1. How often do you have a drink containing alcohol?: 2-4 times a month 2. How many drinks containing alcohol do you have on a typical day when you are drinking?: 1 or 2 3. How often do you have six or more drinks on one occasion?: Never Total Score: 2 NAMITA-7 AMB Questionnaire NAMITA-7 Date NAMITA - 7 assessed: 10/07/23 Source: Developed by Drs. Mac Echeverria, Supriya Weston, Kyle Moon and colleagues, with an educational teofilo from [employer]. Physical exam (Primary Care) Vital Signs: Last Vital Signs Pulse 67 10/07/23 11:32 BP 100/72 10/07/23 11:32 Pulse Ox 91 L 10/07/23 11:32 Oxygen Delivery Method Room Air 10/07/23 11:32 BMI result Body Mass Index 43.0 Tobacco/Smoking Status: Tobacco use Status Tobacco use date assessed 10/07/23 10/07/23 11:33 Patient Tobacco Use Status Former Tobacco user 10/07/23 11:33 e-Cigarette/Vaping Use Never Used 10/07/23 11:33 PHQ-9: PHQ-9 Score PHQ-9: Total score 0 10/07/23 11:44 Depression Screening Interpretation: Negative Thrive Assessment: Date of Thrive Assessment Date Thrive assessed 10/07/23 10/07/23 11:33 Const Other: impacted cerumen bilateral General: alert; No acute distress Eyes Conjunctivae: conjunctivae normal Resp Auscultation: clear to auscultation bilaterally Cardio Rate: regular rate Rhythm: regular rhythm GI Inspection: Yes normal to inspection Extrem General: Yes normal to inspection and No edema Office Procedures Cerumen Removal From which ear canal was the cerumen removed: bilateral Removal: otoscope w/curette and cerumen loop/spoon Notes: patient tolerated procedure well, no complications and ear canal clear [id number] Wax Removal by Spoon/Curette Results AMB Hemoglobin A1c AMB Hemoglobin A1c 6.6 % Last Edit by DAVID Frost on 10/07/23 11:47 Assessment and Plan Assessment & Plan (1) Type 2 diabetes mellitus with hyperglycemia: Comment: [place] 06/2022 Code(s): E11.65 - Type 2 diabetes mellitus with hyperglycemia Qualifiers: Diabetes mellitus nursing home insulin use: without nursing home use Qualified Code(s): E11.65 - Type 2 diabetes mellitus with hyperglycemia Plan: Decrease the amount of carbohydrate intake, pasta, bread, rice and potatoes are all sugar and that is aside from all the sweet stuff, remember that fruits are good but they are Sweet also. Hemoglobin A1c goal of less than 7.0. Patient on metformin 500 mg twice a day semaglutide (2) Hypertension: Code(s): I10 - Essential (primary) hypertension Qualifiers: Hypertension type: essential hypertension Qualified Code(s): I10 - Essential (primary) hypertension Plan: Continue with blood pressure medication. Decrease salt intake and exercise patient takes lisinopril 5 mg once a day (3) Obesity: Code(s): E66.9 - Obesity, unspecified Qualifiers: Obesity type: due to excess calories Obesity classification: adult class 3 (BMI >= 40) Serious obesity comorbidity presence: with serious comorbid ity Body mass index: BMI 45.0-49.9 Qualified Code(s): E66.01 - Morbid (severe) obesity due to excess calories; Z68.42 - Body mass index [BMI] 45.0-49.9, adult Plan: Diet and exercise (4) Hypercholesterolemia: Code(s): E78.00 - Pure hypercholesterolemia, unspecified Plan: Avoid fried foods, chicken skin, eggs, butter margarine, pastries and meat. Be it pork or beef they have a lot of cholesterol LDL goal of less than 100 and triglyceride of less than 150. February 2023 last blood work (5) Obstructive sleep apnea: Comment: September 2021 uses the CPAP every night an benefits from this Code(s): G47.33 - Obstructive sleep apnea (adult) (pediatric) Plan: Continue to use the CPAP more than 4 hours a night and benefits from this. 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
== END 2023-10-07 12:05 | disposition home or self-care (01) ==
PROVIDERS: PCP Internal Medicine; Visit Provider Internal Medicine
DX: E11.65 Type 2 diabetes mellitus with hyperglycemia (principal); I10 Essential (primary) hypertension; E66.01 Morbid (severe) obesity due to excess calories; Z68.42 Body mass index [BMI] 45.0-49.9, adult; G47.33 Obstructive sleep apnea (adult) (pediatric); H61.23 Impacted cerumen, bilateral
CPT/HCPCS: 69210; 83036; 99214

== ENCOUNTER 2024-01-12 08:30 | Outpatient (AMB) | payer MEDICARE, SELFPAY ==
[2024-01-12 08:33] VITALS: BP 138/80; PULSE 87; O2SAT 98; BMI 41.8
--- NOTE | 2024-01-12 08:33 | A.OFFPC_ITS ---
Vital Signs 01/12/24 08:33 Height 5 ft 8 in Weight 275 lb BMI 41.8 BP 138/80 Blood Pressure Location Lt brachial Position Sitting Pulse 87 Pulse Source Pulse Oximeter Pulse Oximetry (%) 98 Oxygen Delivery Method Room Air Intake Visit Reasons: DM Allergies terbinafine [From LAMISIL] Adverse Reaction (Intermediate, Verified 01/12/24 08:33) GI UPSET Lamisil Allergy (Unknown, Uncoded 01/12/24 08:33) Stomach Upset Medication List - Last Reconciled 01/12/24 by Daniel Romano MD aspirin 81 mg PO DAILY [CPAP ] fluticasone propionate 50 mcg/actuation (Flonase Allergy Relief) 2 sprays intranasal DAILY gabapentin 600 mg PO BID 90 days lactulose 20 grams (30 mL) PO BID lisinopril 5 mg PO DAILY metformin 500 mg PO BID 90 days semaglutide 2 mg (0.75 mL) subcut QWEEK 90 days sildenafil 100 mg PO DAILY PRN simvastatin 40 mg PO BEDTIME trazodone 100 mg PO BEDTIME 90 days Tobacco use date assessed: 01/12/24 Fall risk assessment: 1 Fall in past year (Fell in driveway about a month and half ago. ) Last assessed Fall Risk: 01/12/24 Dental Screening Dental Screen Date: 01/12/24 Did you have a dental visit in the last 12 months?: Yes Did you have a dental problem in the last 6 months where you did not have access to dental care?: No Was dental information given to patient?: Patient has dentist HPI DM HPI Details 73-year-old morbidly obese male with sierra betes mellitus hypertension hypercholesterolemia obstructive sleep apnea coming in for follow-up. Last seen in September 2023. Patient is up-to-date with colonoscopy February 2018 10 years noted weight loss [facility] Medical History (Updated 01/12/24 @ 08:37 by Daniel Romano MD) SOB (shortness of breath) on exertion Impacted cerumen of both ears Aortic dilatation Cholelithiasis Obstructive sleep apnea Erectile dysfunction Hypercholesterolemia Peripheral neuropathy Asthma Type 2 diabetes mellitus with hyperglycemia Chronic low back pain Hypertension Surgical History S/P ORIF (open reduction internal fixation) fracture History of left knee replacement History of total right knee replacement History of right hip replacement History of pericardiectomy H/O lumbar discectomy Family History (Updated 06/10/21 @ 08:44 by DAVID Reid) Mother Mental health disorder Social History (Updated 03/11/23 @ 11:43 by Daniel Romano MD) Housing: House Alcohol intake: current Alcohol intake frequency: a few times a week Patient Tobacco Use Status: Former Tobacco user Tobacco use type: Cigarette Years Smoked: stopped 1994 e-Cigarette/Vaping Use: Never Used Second Hand Smoke Exposure: Yes service: Yes Current occupational status: retired Cognitive needs: No Hearing needs: Yes Vision needs: Yes Questionnaire PHQ-9 Over the last 2 weeks, how often have you been bothered by any of the following problems? 1. Little interest or pleasure in doing things: not at all 2. Feeling down, depressed, or hopeless: not at all 3. Trouble falling or staying asleep, or sleeping too much: not at all 4. Feeling tired or having little energy: not at all 5. Poor appetite or overeating: not at all 6. Feeling bad about yourself - or that you are a failure or have let yourself or your family down: not at all 7. Trouble concentrating on things, such as reading the newspaper or watching television: not at all 8. Moving or speaking so slowly that other people could have noticed. Or the opposite - being so fidgety or restless that you have been moving around a lot more than usual: not at all 9. Thoughts that you would be better off or of hurting yourself in some way: not at all Total score: 0 Depression Screening Interpretation: Negative Depression Screening Done: Yes Source: Developed by Drs. Mac Echeverria, Supriya Weston, Kyle Moon and colleagues, with an educational teofilo from [employer]. Thrive Questionnaire Date Thrive assessed: 01/12/24 I am a: Patient What is your living situation today?: I have a steady place to live Within the past 12 months, did the food you bought not last and you didn't have the money to get more?: Never true Within the past 12 months, did you worry whether your food would run out before you got money to buy more?: Never true Do you have trouble paying for medicines?: No Do you have trouble getting transportation to medical appointments?: No Do you have trouble paying your heating and electricity bill?: No Do you have trouble taking care of your child, family member or friend?: No Do you have trouble with day-to-day activities such as bathing, preparing meals, shopping, managing finances, etc.?: No Are you currently unemployed and looking for a job?: No Are you interested in more education?: No Please select the resources that you would like help with: None THRIVE Score: 0 AUDIT C Alcohol Use Questionnaire (AUDIT-C) 1. How often do you have a drink containing alcohol?: 2-4 times a month 2. How many drinks containing alcohol do you have on a typical day when you are drinking?: 1 or 2 3. How often do you have six or more drinks on one occasion?: Never Total Score: 2 NAMITA-7 AMB Questionnaire NAMITA-7 Date NAMITA - 7 assessed: 01/12/24 Feeling nervous, anxious, or on edge: 0 = Not at all Not being able to stop or control worryin = Not at all Worrying too much about different things: 0 = Not at all Trouble relaxin = Not at all Being so restless that it is hard to sit still: 0 = Not at all Becoming easily annoyed or irritable: 0 = Not at all Feeling afraid as if something awful might happen: 0 = Not at all Total NAMITA-7 score (0-4 normal; 5-9 mild; 10-14 moderate; 15-21 severe): 0 Source: Developed by Drs. Mac Echeverria, Supriya Weston, Kyle Moon and colleagues, with an educational teofilo from [employer]. Physical exam (Primary Care) Vital Signs: Last Vital Signs Pulse 87 01/12/24 08:33 BP 138/80 01/12/24 08:33 Pulse Ox 98 01/12/24 08:33 Oxygen Delivery Method Room Air 01/12/24 08:33 BMI result Body Mass Index 41.8 Tobacco/Smoking Status: Tobacco use Status Tobacco use date assessed 01/12/24 01/12/24 08:34 Patient Tobacco Use Status Former Tobacco user 01/12/24 08:34 Tobacco use type Cigarette 01/12/24 08:34 e-Cigarette/Vaping Use Never Used 01/12/24 08:34 PHQ-9: PHQ-9 Score PHQ-9: Total score 0 01/12/24 08:38 Depression Screening Interpretation: Negative Thrive Assessment: Date of Thrive Assessment Date Thrive assessed 01/12/24 01/12/24 08:34 Const General: alert; No acute distress Eyes Conjunctivae: conjunctivae normal Resp Auscultation: clear to auscultation bilaterally Cardio Rate: regular rate Rhythm: regular rhythm GI Inspection: Yes normal to inspection Extrem General: Yes normal to inspection and No edema Results AMB Hemoglobin A1c AMB Hemoglobin A1c 5.8 % Last Edit by Lety Baca CMA on 01/12/24 08 :49 Assessment and Plan Assessment & Plan (1) Type 2 diabetes mellitus with hyperglycemia: Comment: [place] 06/2022 Code(s): E11.65 - Type 2 diabetes mellitus with hyperglycemia Qualifiers: Diabetes mellitus [facility] [facility] insulin use: without [facility] use Qualified Code(s): E11.65 - Type 2 diabetes mellitus with hyperglycemia Plan: Decrease the amount of carbohydrate intake, pasta, bread, rice and potatoes are all sugar and that is aside from all the sweet stuff, remember that fruits are good but they are Sweet also. Hemoglobin A1c goal of less than 7.0. Patient on metformin 500 mg twice a day patient is on semaglutide 2 mg once a week (2) Morbid obesity: Code(s): E66.01 - Morbid (severe) obesity due to excess calories Plan: Discussed about diet and exercise and continue with semaglutide (3) Hypertension: Code(s): I10 - Essential (primary) hypertension Qualifiers: Hypertension type: essential hypertension Qualified Code(s): I10 - Essential (primary) hypertension Plan: Continue with blood pressure medication. Decrease salt intake and exercise lisinopril 5 mg once a day (4) Hypercholesterolemia: Code(s): E78.00 - Pure hypercholesterolemia, unspecified Plan: Avoid fried foods, chicken skin, eggs, butter margarine, pastries and meat. Be it pork or beef they have a lot of cholesterol LDL goal of less than 100 and triglyceride of less than 150 on simvastatin 40 mg at bedtime blood work last done in February 2023 advised new blood work (5) Asthma: Code(s): J45.909 - Unspecified asthma, uncomplicated Qualifiers: Asthma severity: mild Asthma persistence: intermittent Asthma complication type: uncomplicated Qualified Code(s): J45.20 - Mild intermittent asthma, uncomplicated Plan: Stable Orders: Orders AMB Hemoglobin A1c Today Z13.9 - Encounter for screening, unspecified Comprehensive Met. Panel 3 Months E11. - Type 2 diabetes mellitus with hyperglycemia Free T4 (Free Thyroxine) 3 Months E11. - Type 2 diabetes mellitus with hyperglycemia Thyroid Stimulating Hormone 3 Months E11. - Type 2 diabetes mellitus with hyperglycemia Microalbumin, Random (w Creat) 3 Months E11. - Type 2 diabetes mellitus with hyperglycemia Vitamin B12 and Folate 3 Months E11. - Type 2 diabetes mellitus with hyperglycemia Hemoglobin A1c 3 Months E11. - Type 2 diabetes mellitus with hyperglycemia Complete Blood Count Auto Diff 3 Months E11. - Type 2 diabetes mellitus with hyperglycemia Lipid Panel 3 Months E11. - Type 2 diabetes mellitus with hyperglycemia, E78.00 - Pure hypercholesterolemia, unspecified Creatinine Urine 3 Months E11. - Type 2 diabetes mellitus with hyperglycemia Medications: Changed From gabapentin 600 mg PO BID 90 days 180 tabs 3RF G62.9 - Polyneuropathy, unspecified To gabapentin 600 mg PO DAILY 90 days 90 tabs 3RF G62.9 - Polyneuropathy, unspecified Coding Level of Care Code Est Pt Level 4 (14261) Diagnoses Type 2 diabetes mellitus with hyperglycemia, without long-term current use of insulin . Diabetes mellitus [facility] insulin use: without [facility] use Morbid obesity E66.01 Essential hypertension I10 Hypertension type: essential hypertension Hypercholesterolemia E78.00 Mild intermittent asthma without complication J45.20 Asthma severity: mild Asthma persistence: intermittent Asthma complication type: uncomplicated
== END 2024-01-12 08:54 | disposition home or self-care (01) ==
PROVIDERS: PCP Internal Medicine; Visit Provider Internal Medicine
DX: E11.65 Type 2 diabetes mellitus with hyperglycemia (principal); E66.01 Morbid (severe) obesity due to excess calories; Z68.41 Body mass index [BMI] 40.0-44.9, adult; I10 Essential (primary) hypertension; E78.00 Pure hypercholesterolemia, unspecified; J45.20 Mild intermittent asthma, uncomplicated
CPT/HCPCS: 83036; 99214

== ENCOUNTER 2024-03-04 06:31 | Outpatient (REF) | payer MEDICARE, SELFPAY ==
[2024-03-04 11:29] LABS: MANUAL DIFF FLAG NO
[2024-03-04 11:31] LABS: Basophils Absolute Auto 0.1 X10*3/uL (0.0-0.2); Eosinophils Absolute Auto 0.2 X10*3/uL (0.0-0.4); Hematocrit 41.3 % (42.0-52.0); Hemoglobin 13.9 g/dl (14.0-18.0); Imm Gran Abs Auto 0.02 X10*3/uL (0.00-0.03); Imm Gran Pct Auto 0.3 % (0.0-0.4); Lymphocytes Percent Auto 16.7 % (20-40); Mean Corpuscular HGB Conc 33.7 g/dl (31.0-36.0); Mean Corpuscular Hemoglobin 32.4 pg (27.0-33.0); Mean Corpuscular Volume 96.3 fL (80.0-98.0); Mean Platelet Volume 9.7 fL (9.4-12.4); Monocytes Absolute Auto 0.6 X10*3/uL (0.1-1.2); Monocytes Percent Auto 10.3 % (2-11); Neutrophils Absolute Auto 4.1 x10*3/uL (2.0-8.3); Neutrophils Percent Auto 68.7 % (45-73); Platelet Count 180 X10*3/uL (160-400); Red Blood Count 4.29 X10*6/uL (4.60-5.80); Red Cell Distribution Width 13.2 % (11.0-16.0); White Blood Count 5.9 X10*3/uL (4.8-10.8)
[2024-03-04 11:40] LABS: Estimated Average Glucose 117 mg/dL; Hemoglobin A1c % 5.7 % (<6.0)
[2024-03-04 12:01] LABS: Alanine Aminotransferase 21 U/L (0-40); Albumin Level 3.8 g/dL (3.5-5.0); Alkaline Phosphatase 40 U/L (39-117); Anion Gap 13 (12-20); Aspartate Amino Transferase 20 U/L (5-37); Bilirubin Total 0.6 mg/dL (0.0-1.0); Blood Urea Nitrogen 15 mg/dL (9-16); Calcium 9.1 mg/dL (8.4-10.2); Carbon Dioxide 28 mmol/L (22-29); Chloride 105 mmol/L (96-108); Cholesterol 149 mg/dL (<200); Estimated Glomerular Filt Rate > 60; Glucose Random 120 mg/dL (60-115); HDL Cholesterol 44 mg/dL (>40); LDL Cholesterol Calculated 83 mg/dL (<100); Potassium 4.6 mmol/L (3.3-5.1); Sodium 141 mmol/L (135-145); Total Protein 6.4 g/dL (6.5-8.0); Triglycerides 113 mg/dL (<150)
[2024-03-04 12:03] LABS: Free T4 (Free Thyroxine) 0.83 ng/dL (0.71-1.85); Thyroid Stimulating Hormone 1.54 uIU/mL (0.32-4.0)
[2024-03-04 12:14] LABS: Creatinine Urine 92.07 mg/dL; Microalbum/Creatinine Ratio Ur 7.6 ug/mg cr (<30)
[2024-03-04 12:18] LABS: Folate 12.2 ng/mL (> or = 4.0); Vitamin B12 752 pg/mL (200-900)
== END 2024-03-04 06:32 | disposition home or self-care (01) ==
LOC: HO.HMGCLDS 06:31
PROVIDERS: PCP Internal Medicine; Visit Provider Internal Medicine
DX: E11.65 Type 2 diabetes mellitus with hyperglycemia (principal); E78.00 Pure hypercholesterolemia, unspecified
CPT/HCPCS: 36415; 80053; 80061; 82043; 82570; 82607; 82746; 83036; 84439; 84443; 85025

== ENCOUNTER 2024-03-13 13:21 | Outpatient (AMB) | payer MEDICARE, SELFPAY ==
[2024-03-13 13:25] VITALS: BP 132/82; PULSE 80; O2SAT 96; BMI 41.8
--- NOTE | 2024-03-13 13:25 | AM.OFFVISMDC ---
Intake Vital Signs 03/13/24 13:25 Height 5 ft 8 in Weight 275 lb BMI 41.8 BP 132/82 Blood Pressure Location Lt brachial Position Sitting Pulse 80 Pulse Source Pulse Oximeter Pulse Oximetry (%) 96 Oxygen Delivery Method Room Air Intake Visit Reasons: sawv Allergies terbinafine [From LAMISIL] Adverse Reaction (Intermediate, Verified 03/13/24 13:26) GI UPSET Lamisil Allergy (Unknown, Uncoded 03/13/24 13:26) Stomach Upset Medication List - Last Reconciled 03/13/24 by Daniel Romano MD aspirin 81 mg PO DAILY [CPAP ] fluticasone propionate 50 mcg/actuation (Flonase Allergy Relief) 2 sprays intranasal DAILY gabapentin 600 mg PO DAILY 90 days lactulose 20 grams (30 mL) PO BID lisinopril 5 mg PO DAILY metformin 500 mg PO BID 90 days semaglutide 2 mg (0.75 mL) subcut QWEEK 90 days simvastatin 40 mg PO BEDTIME trazodone 100 mg PO BEDTIME 90 days HPI sawv HPI Details 73-year-old morbidly obese male with controlled diabetes mellitus hypertension hypercholesterolemia asthma coming in for an annual well visit. Last seen in 01/31/2024. Patient's colonoscopy is up-to-date February 2018 10 years. fall tripped early has neurpathy [facility] Medical History (Updated 03/13/24 @ 14:16 by Daniel Romano MD) SOB (shortness of breath) on exertion Impacted cerumen of both ears Aortic dilatation Cholelithiasis Obstructive sleep apnea Erectile dysfunction Hypercholesterolemia Peripheral neuropathy Asthma Type 2 diabetes mellitus with hyperglycemia Chronic low back pain Hypertension Surgical History S/P ORIF (open reduction internal fixation) fracture History of left knee replacement History of total right knee replacement History of right hip replacement History of pericardiectomy H/O lumbar discectomy Family History (Updated 06/10/21 @ 08:44 by DAVID Reid) Mother Mental health disorder Social History (Updated 03/13/24 @ 14:01 by Daniel Romano MD) Housing: House Alcohol intake: current Alcohol intake frequency: a few times a week Comment: once a week 1 drinks Patient Tobacco Use Status: Former Tobacco user Tobacco use type: Cigarette Years Smoked: stopped 1994 e-Cigarette/Vaping Use: Never Used Second Hand Smoke Exposure: Yes service: Yes Current occupational status: retired Cognitive needs: No Hearing needs: Yes Vision needs: Yes Questionnaire Medicare Wellness Checkup [age] What gender do you identify with?: male During the past 4 weeks, how much have you been bothered by emotional problems such as feeling anxious, depressed, irritable, sad or downhearted, and blue?: not at all During the past 4 weeks, has your physical & emotional health limited your social activities with family, friends, neighbors, or groups?: not at all During the past 4 weeks, how much bodily pain have you generally had?: very mild pain During the past 4 weeks, was someone available to help you if you needed & wanted help?: yes, as much as I wanted During the past 4 weeks, what was the hardest physical activity you could do for at least 2 minutes?: moderate Can you get to places out of walking distance without help? (For eg., can you travel alone on buses, taxis or drive your car?): Yes Can you go shopping for groceries or clothes without someone's help?: Yes Can you prepare your own meals?: Yes Can you do your housework without help?: No Because of any health problems, do you need the help of another person with your personal care needs such as eating, bathing, dressing or getting around the house?: No Can you handle your own money without help?: Yes During the past 4 weeks, how would you rate your health in general?: very good During the past 4 weeks how have things been going for you?: pretty well Are you having difficulties driving your car?: no Do you always fasten your seat belt when you are in a car?: yes, usually During past 4 weeks, have you been bothered by the following: never: Falling or dizzy when standing up, Sexual problems?, Trouble eating well?, Teeth or denture problems?, Problems using the telephone? and Tiredness or fatigue? Have you fallen 2 or more times in the past year?: Yes Are you afraid of falling?: No Are you a smoker?: no During the past 4 weeks, how many drinks of wine, beer, or other alcoholic beverages did you have?: 1 drink or less per week Do you exercise for about 20 minutes 3 or more times a week?: no, I usually do not exercise this much Have you been given information to help with the following?: no: Hazards in your house that might hurt you? and no: Keeping track of your medications? How often do you have trouble taking medicines the way you have been told to take them?: I always take medicine as prescribed How confident are you that you can control & manage most of your health problems?: very confident What is your race?: White PHQ-9 Over the last 2 weeks, how often have you been bothered by any of the following problems? 1. Little interest or pleasure in doing things: not at all 2. Feeling down, depressed, or hopeless: not at all 3. Trouble falling or staying asleep, or sleeping too much: not at all 4. Feeling tired or having little energy: not at all 5. Poor appetite or overeating: not at all 6. Feeling bad about yourself - or that you are a failure or have let yourself or your family down: not at all 7. Trouble concentrating on things, such as reading the newspaper or watching television: not at all 8. Moving or speaking so slowly that other people could have noticed. Or the opposite - being so fidgety or restless that you have been moving around a lot more than usual: not at all 9. Thoughts that you would be better off or of hurting yourself in some way: not at all Total score: 0 Depression Screening Interpretation: Negative Depression Screening Done: Yes Source: Developed by Drs. Mac Echeverria, Kyle Simpson and colleagues, with an educational teofilo from [employer]. Thrive Questionnaire Date Thrive assessed: 01/12/24 NAMITA-7 AMB Questionnaire NAMITA-7 Date NAMITA - 7 assessed: 01/12/24 Source: Developed by Drs. Mac Echeverria, Kyle Simpson and colleagues, with an educational teofilo from [employer]. Review of Systems Const Denies poor appetite and Denies weakness Eyes Denies no additional complaints ENT Reports Normal hearing present, Denies dizziness, Denies nasal congestion, Denies tinnitus and Denies sore throat Card Denies chest pain, Denies syncope, Denies rapid heart rate and Denies dyspnea Resp Denies cough and Denies dyspnea GI Denies change in stool character, Reports constipation, Denies diarrhea, Denies nausea and Denies vomiting Denies dysuria and Denies urinary frequency Neuro Reports Normal hearing present, Denies confusion, Denies dizziness, Denies syncope and Denies weakness Psych Denies confusion Physical Exam Vital Signs: Last Vital Signs Pulse 80 03/13/24 13:25 BP 132/82 03/13/24 13:25 Pulse Ox 96 03/13/24 13:25 Oxygen Delivery Method Room Air 03/13/24 13:25 BMI result Body Mass Index 41.8 Const General: No confusion Orientation/consciousness: No confusion HEENT Head: Yes normocephalic Ears: external ears normal and TM's normal bilaterally Face and sinus: Yes normal facial exam Mouth: moist mucous membranes Throat: Yes tonsils normal Eyes Conjunctivae: conjunctivae normal Pupils: Equal, round and reactive pupils present and Pupil accommodation reflex normal Direct Ophthalmoscopy: normal light reflex Neck Neck: No lymphadenopathy Thyroid: Thyroid normal Chest Chest palpation & inspection: normal inspection of the chest Resp Effort & Inspection: normal respiratory effort and no audible wheezes Auscultation: clear to auscultation bilaterally, no crackles, no wheezes and lung sounds not diminished Cardio Rate: regular rate Rhythm: regular rhythm Peripheral pulses: radial pulses present and dorsalis pedis present GI Other: polyps noted on the rectal area guaiac negative prostate N, pin prick neuropathy bilateral sole area L > R pedla pulse good Palpation (GI): no masses Auscultation: normal bowel sounds and normoactive bowel sounds Skin General skin exam: no rashes or lesions noted Rashes: no rashes Neuro General: No confusion Cranial nerves: Yes Equal, round and reactive pupils present and Yes Normal hearing present Cognition (Neuro): normal cognition Gait exam (Neuro): Normal gait present Motor exam (neuro): 5/5 motor strength present throughout Deep tendon reflexes (DTR's): Right brachioradialis reflex intensity grade: 2+, Left brachioradialis reflex intensity grade: 2+, Right patellar reflex intensity grade: 2+ and Left patellar reflex intensity grade: 2+ Extrem General: No edema Assessment & Plan Assessment & Plan (1) Encounter for subsequent annual wellness visit (AWV) in Medicare patient: Code(s): Z00.00 - Encounter for general adult medical examination without abnormal findings Plan: Patient is advised to eat healthy, keep well hydrated, keep active and have adequate sleep. (2) Type 2 diabetes mellitus with hyperglycemia: Comment: [place] 06/2022 Code(s): E11.65 - Type 2 diabetes mellitus with hyperglycemia Qualifiers: Diabetes mellitus group home insulin use: without group home use Qualified Code(s): E11.65 - Type 2 diabetes mellitus with hyperglycemia Plan: Decrease the amount of carbohydrate intake, pasta, bread, rice and potatoes are all sugar and that is aside from all the sweet stuff, remember that fruits are good but they are Sweet also. Hemoglobin A1c goal of less than 7.0 on metformin 500 mg twice a day semaglutide at 2 mg once a week (3) Hypertension: Code(s): I10 - Essential (primary) hypertension Qualifiers: Hypertension type: essential hypertension Qualified Code(s): I10 - Essential (primary) hypertension Plan: Continue with blood pressure medication. Decrease salt intake and exercise on lisinopril 5 mg once a day (4) Asthma: Code(s): J45.909 - Unspecified asthma, uncomplicated Qualifiers: Asthma severity: mild Asthma persistence: intermittent Asthma complication type: uncomplicated Qualified Code(s): J45.20 - Mild intermittent asthma, uncomplicated Plan: Stable (5) Hypercholesterolemia: Code(s): E78.00 - Pure hypercholesterolemia, unspecified Plan: Avoid fried foods, chicken skin, eggs, butter margarine, pastries and meat. Be it pork or beef they have a lot of cholesterol takes simvastatin 40 mg once a day LDL goal of less than 100 and triglyceride of less than 150 (6) Obstructive sleep apnea: Comment: September 2021 uses the CPAP every night an benefits from this Code(s): G47.33 - Obstructive sleep apnea (adult) (pediatric) Plan: Continue to use the CPAP more than 4 hours a night and benefits from this (7) Morbid obesity: Code(s): E66.01 - Morbid (severe) obesity due to excess calories Plan: Diet and exercise (8) Tinea pedis: Code(s): B35.3 - Tinea pedis Plan: clotrimazole cream otc BID x 4 weeks Medications: New semaglutide (weight loss) (Wegovy) 2.4 mg (0.75 mL) subcut QWEEK 3 mL 3RF E11.65 - Type 2 diabetes mellitus with hyperglycemia, E66.01 - Morbid (severe) obesity due to excess calories Refilled lactulose 20 grams (30 mL) PO BID 2,880 mL 3RF K59.00 - Constipation, unspecified Discontinued semaglutide Discontinued Reason: Doctor's Order 2 mg (0.75 mL) subcut QWEEK 90 days 9.75 mL 3RF E11.65 - Type 2 diabetes mellitus with hyperglycemia Quality Reporting (2019) Depression/Bipolar (159/160/161/177) PHQ-9: Total score: 0 Coding Level of Care Code Medicare Subsequent (G0439) Diagnoses Encounter for subsequent annual wellness visit (AWV) in Medicare patient Z00.00 Type 2 diabetes mellitus with hyperglycemia, without long-term current use of insulin E11.65 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
== END 2024-03-13 14:26 | disposition home or self-care (01) ==
PROVIDERS: PCP Internal Medicine; Visit Provider Internal Medicine
DX: Z00.00 Encounter for general adult medical examination without abnormal findings (principal); E11.65 Type 2 diabetes mellitus with hyperglycemia; E66.01 Morbid (severe) obesity due to excess calories; Z68.41 Body mass index [BMI] 40.0-44.9, adult; I10 Essential (primary) hypertension; J45.20 Mild intermittent asthma, uncomplicated; E78.00 Pure hypercholesterolemia, unspecified; G47.33 Obstructive sleep apnea (adult) (pediatric); B35.3 Tinea pedis
CPT/HCPCS: G0439

== ENCOUNTER 2024-06-20 07:36 | Outpatient (AMB) | payer MEDICARE, SELFPAY ==
[2024-06-20 07:58] VITALS: BP 130/62; PULSE 88; O2SAT 93; BMI 41.5
--- NOTE | 2024-06-20 07:58 | MHC.PC.OV ---
Vital Signs 06/20/24 07:58 Height 5 ft 8 in Weight 273 lb 0.4 oz BMI 41.5 BP 130/62 Blood Pressure Location Lt brachial Position Sitting Pulse 88 Pulse Source Pulse Oximeter Pulse Oximetry (%) 93 Oxygen Delivery Method Room Air Intake Visit Reasons: 3 Month F/U Foreclosure Specialist Required: No Allergies terbinafine [From LAMISIL] Adverse Reaction (Intermediate, Verified 06/20/24 07:58) GI UPSET Lamisil Allergy (Unknown, Uncoded 06/20/24 07:58) Stomach Upset Medication List - Last Reconciled 06/20/24 by April Joe PA-C aspirin 81 mg PO DAILY [CPAP ] fluticasone propionate 50 mcg/actuation (Flonase Allergy Relief) 2 sprays intranasal DAILY gabapentin 600 mg PO DAILY 90 days lactulose 20 grams (30 mL) PO BID lisinopril 5 mg PO DAILY metformin 500 mg PO BID 90 days semaglutide (weight loss) (Wegovy) 2.4 mg (0.75 mL) subcut QWEEK simvastatin 40 mg PO BEDTIME trazodone 100 mg PO BEDTIME 90 days Tobacco use date assessed: 01/12/24 Fall risk assessment: No Falls in past year Last assessed Fall Risk: 06/20/24 Dental Screening Dental Screen Date: 01/12/24 HPI 3 Month F/U HPI Details 73-year-old morbidly obese male with medical history of controlled diabetes mellitus, hypertension, hypercholesterolemia, and asthma last seen by Dr. Romano March 2024 coming in for follow up. In review of the notes, patient was seen by [facility] for annual foot exam follow up in 3 months. Patient is feeling generally well and has no acute concerns today. He does mentioned that he was unable to get Wegovy covered through his insurance but is continuing on the Ozempic 2 mg. [facility] Medical History (Updated 03/13/24 @ 14:16 by Daniel Romano MD) SOB (shortness of breath) on exertion Impacted cerumen of both ears Aortic dilatation Cholelithiasis Obstructive sleep apnea Erectile dysfunction Hypercholesterolemia Peripheral neuropathy Asthma Type 2 diabetes mellitus with hyperglycemia Chronic low back pain Hypertension Surgical History S/P ORIF (open reduction internal fixation) fracture History of left knee replacement History of total right knee replacement History of right hip replacement History of pericardiectomy H/O lumbar discectomy Family History (Updated 06/10/21 @ 08:44 by DAVID Reid) Mother Mental health disorder Social History (Updated 03/13/24 @ 14:01 by Daniel Romano MD) Housing: House Alcohol intake: current Alcohol intake frequency: a few times a week Comment: once a week 1 drinks Patient Tobacco Use Status: Former Tobacco user Tobacco use type: Cigarette Years Smoked: stopped 1994 e-Cigarette/Vaping Use: Never Used Second Hand Smoke Exposure: Yes service: Yes Current occupational status: retired Cognitive needs: No Hearing needs: Yes Vision needs: Yes Questionnaire Thrive Questionnaire Date Thrive assessed: 01/12/24 Are you currently unemployed and looking for a job?: No AUDIT C Alcohol Use Questionnaire (AUDIT-C) 2. How many drinks containing alcohol do you have on a typical day when you are drinking?: 1 or 2 3. How often do you have six or more drinks on one occasion?: Less than monthly Total Score: 1 NAMITA-7 AMB Questionnaire NAMITA-7 Date NAMITA - 7 assessed: 01/12/24 Source: Developed by Drs. Mac Echeverria, Supriya Weston, Kyle Moon and colleagues, with an educational teofilo from [employer]. Review of Systems Const Denies chills, Denies fever(s) and Denies headache(s) Eyes Reports no additional complaints ENT Denies dizziness and Denies headache(s) Card Denies chest pain and Denies dyspnea Resp Denies cough and Denies dyspnea GI Denies abdominal pain, Denies nausea and Denies vomiting Reports no additional complaints Musc Details: Chronic bilateral knee pain Denies abnormal gait Skin/Breast Reports system reviewed and no additional complaints, except as documented Neuro Denies abnormal gait, Denies dizziness and Denies headache(s) Psych Reports no additional complaints Physical exam (Primary Care) Vital Signs: Last Vital Signs Pulse 88 06/20/24 07:58 BP 130/62 06/20/24 07:58 Pulse Ox 93 06/20/24 07:58 Oxygen Delivery Method Room Air 06/20/24 07:58 BMI result Body Mass Index 41.5 Tobacco/Smoking Status: Tobacco use Status Tobacco use date assessed 01/12/24 06/20/24 07:58 Patient Tobacco Use Status Former Tobacco user 06/20/24 07:58 Tobacco use type Cigarette 06/20/24 07:58 e-Cigarette/Vaping Use Never Used 06/20/24 07:58 Thrive Assessment: Date of Thrive Assessment Date Thrive assessed 01/12/24 06/20/24 07:58 Const General: cooperative, healthy appearing, comfortable and no acute distress Orientation/consciousness: patient oriented x3 HENMT Head: Yes normocephalic Ears: hearing grossly normal bilaterally General nose exam: Normal external nose present Eyes General: appearance normal, both eyes and all related structures Conjunctivae: conjunctivae normal Neck Neck: Yes full ROM and Yes no lymphadenopathy Resp Effort & Inspection: normal respiratory effort Auscultation: clear to auscultation bilaterally, no crackles, no rales, no rhonchi and no wheezes Cardio Rate: regular rate Rhythm: regular rhythm Skin General skin exam: no rashes or lesions noted Neuro General: patient oriented x3 Gait exam (Neuro): Normal gait present Extrem General: Yes normal to inspection, Yes full ROM and No edema Psych Affect: normal affect Attitude: cooperative Insight: Good insight present (Psych) Judgement: Good judgement present (Psych) Results AMB Hemoglobin A1c AMB Hemoglobin A1c 5.8 % Last Edit by DAVID Frost on 06/20/24 08:17 Coding Level of Care Code Est Pt Level 3 (05156) Diagnoses Morbid obesity E66.01 Obstructive sleep apnea G47.33 Hypercholesterolemia E78.00 Mild intermittent asthma without complication J45.20 Asthma severity: mild Asthma persistence: intermittent Asthma complication type: uncomplicated Type 2 diabetes mellitus with hyperglycemia, without long-term current use of insulin E11.65 Diabetes mellitus middle or intermediate school principal insulin use: without middle or intermediate school principal use Essential hypertension I10 Hypertension type: essential hypertension Assessment & Plan Assessment & Plan (1) Morbid obesity: Code(s): E66.01 - Morbid (severe) obesity due to excess calories Category: Medical Plan: Encouraged healthy diet and regular exercise. We will go we was not covered by insurance and continue on Ozempic for diabetes. (2) Obstructive sleep apnea: Comment: September 2021 uses the CPAP every night an benefits from this Code(s): G47.33 - Obstructive sleep apnea (adult) (pediatric) Category: Medical (3) Hypercholesterolemia: Code(s): E78.00 - Pure hypercholesterolemia, unspecified Category: Medical Plan: Avoid foods that are high in cholesterol such as red meat, fried foods, eggs and baked goods. Triglyceride goal of less than on 50 and LDL goal of less than 100. Continue on simvastatin 40 mg. Cholesterol at goal on last labs. (4) Asthma: Code(s): J45.909 - Unspecified asthma, uncomplicated Category: Medical Qualifiers: Asthma severity: mild Asthma persistence: intermittent Asthma complication type: uncomplicated Qualified Code(s): J45.20 - Mild intermittent asthma, uncomplicated Plan: Asthma currently controlled on present medications. Avoid triggers such as allergies. Not currently using inhaler (5) Type 2 diabetes mellitus with hyperglycemia: Comment: [place] 06/2022 Code(s): E11.65 - Type 2 diabetes mellitus with hyperglycemia Category: Medical Qualifiers: Diabetes mellitus middle or intermediate school principal insulin use: without care home use Qualified Code(s): E11.65 - Type 2 diabetes mellitus with hyperglycemia Plan: Decrease the amount of carbohydrates such as pasta, bread, rice, and potatoes and limit the amount of sweets. Although fruits are generally healthy they should be eaten in moderation as they are still high in sugar. Hemoglobin A1c goal of less than 7%. A1c in office today was 5.8% has been stable since January and at goal for the last year. Currently on Ozempic. Follow up in 6 months. (6) Hypertension: Code(s): I10 - Essential (primary) hypertension Category: Medical Qualifiers: Hypertension type: essential hypertension Qualified Code(s): I10 - Essential (primary) hypertension Plan: Continue on current blood pressure medication. Avoid salt intake and encourage healthy diet and regular exercise. Plan This note was constructed using voice recognition software. While every effort has been made to ensure accuracy and boiler water tester, still areas may have been included sometimes these areas may affect the content or meeting of the given symptoms. Total time spent caring for the patient today was 30 minutes. This includes time spent before the visit reviewing the chart, time spent during the visit, and time spent after the visit and documentation. Orders: Orders AMB Hemoglobin A1c Today E11.65 - Type 2 diabetes mellitus with hyperglycemia Lipid Panel 6 Months Z00.00 - Encounter for general adult medical examination without abnormal findings Hemoglobin A1c 6 Months Z00.00 - Encounter for general adult medical examination without abnormal findings Medications: New semaglutide (Ozempic) 2 mg (0.75 mL) subcut QWEEK 3 mL 0RF Discontinued semaglutide (weight loss) (Ryan) Discontinued Reason: Patient no longer taking 2.4 mg (0.75 mL) subcut QWEEK 3 mL 3RF E11.65 - Type 2 diabetes mellitus with hyperglycemia, E66.01 - Morbid (severe) obesity due to excess calories
== END 2024-06-20 08:24 | disposition home or self-care (01) ==
PROVIDERS: PCP Internal Medicine
DX: G47.33 Obstructive sleep apnea (adult) (pediatric) (principal); E66.813 Obesity, class 3; E11.65 Type 2 diabetes mellitus with hyperglycemia; Z68.41 Body mass index [BMI] 40.0-44.9, adult; E78.00 Pure hypercholesterolemia, unspecified; J45.20 Mild intermittent asthma, uncomplicated; I10 Essential (primary) hypertension

== ENCOUNTER → 2024-06-20 07:36 | Outpatient (BNVA) | payer MEDICARE, SELFPAY | PROVIDERS: PCP Internal Medicine | DX: E66.01 Morbid (severe) obesity due to excess calories (principal); G47.33 Obstructive sleep apnea (adult) (pediatric); E78.00 Pure hypercholesterolemia, unspecified; J45.20 Mild intermittent asthma, uncomplicated; E11.65 Type 2 diabetes mellitus with hyperglycemia; I10 Essential (primary) hypertension | CPT/HCPCS: 83036; 99212 ==

== ENCOUNTER 2024-11-08 10:11 | Outpatient (AMB) | payer MEDICARE, SELFPAY ==
--- NOTE | 2024-11-08 10:30 | AM.OFFWIN_ITS ---
Intake Vital Signs 3 11/08/24 10:38 Height 5 ft 8 in Weight 271 lb BMI 41.2 BP 120/84 Blood Pressure Location Lt brachial Position Sitting Pulse 74 Pulse Source Pulse Oximeter Pulse Oximetry (%) 94 Oxygen Delivery Method Room Air Intake Visit Reasons: EP-lt sore nostril , lt ear lump Intake Note: Patient here for left ear bump that has been present for at least 6 months and also has a bump in left nostril that has been present for a couple of weeks. Patient Tobacco Use Status: Former Tobacco user Allergies terbinafine [From LAMISIL] Adverse Reaction (Intermediate, Verified 11/08/24 10:41) GI UPSET Lamisil Allergy (Unknown, Uncoded 11/08/24 10:41) Stomach Upset Do you need a note to return to daycare/school/sports/work: No HPI HPI Comments 2 History of Present Illness0 Details Patient is a 74yo M who presents to office with 2 bumps States one to L ear x a few months He noticed this [address] 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 disregarded it said since then it looks darker in color Sleeps on L side and unsure if that is worsening it He said it is bothersome at night Do not notice during day Sometimes itches One to nostril x a few weeks Irritating and seems like it has gotten better No drainage from either lesions + slight congestion PFSH Medical History (Updated 11/08/24 @ 10:51 by Roxi Duarte PA-C) SOB (shortness of breath) on exertion Impacted cerumen of both ears Aortic dilatation Cholelithiasis Obstructive sleep apnea Erectile dysfunction Hypercholesterolemia Peripheral neuropathy Asthma Type 2 diabetes mellitus with hyperglycemia Chronic low back pain Hypertension Surgical History S/P ORIF (open reduction internal fixation) fracture History of left knee replacement History of total right knee replacement History of right hip replacement History of pericardiectomy H/O lumbar discectomy Family History (Updated 06/10/21 @ 08:44 by DAVID Reid) Mother Mental health disorder Social History (Updated 03/13/24 @ 14:01 by Daniel Romano MD) Housing: House Alcohol intake: current Alcohol intake frequency: a few times a week Comment: once a week 1 drinks Patient Tobacco Use Status: Former Tobacco user Tobacco use type: Cigarette Years Smoked: stopped 1994 e-Cigarette/Vaping Use: Never Used Second Hand Smoke Exposure: Yes service: Yes Current occupational status: retired Cognitive needs: No Hearing needs: Yes Vision needs: Yes Review of Systems Const Denies chills and Denies fever(s) ENT Denies otalgia and Reports nasal congestion Card Denies dyspnea Resp Denies dyspnea Skin/Breast Reports lesions (L ear and L nare) Physical Exam Vital Signs: Last Vital Signs Pulse 74 11/08/24 10:38 BP 120/84 11/08/24 10:38 Pulse Ox 94 11/08/24 10:38 Oxygen Delivery Method Room Air 11/08/24 10:38 BMI result Body Mass Index 41.2 General: Non-toxic, NAD. Speaking full sentences. Skin: Warm dry throughout. L ear imaged below. He has one raised scabbed erythematous circular lesion. No active drainage Eye: EOMI HENT: bilateral canals clear. TM non-erythematous, non-bulging. No TM perforation or hemotympanum noted. + boggy nasal mucosa bilateral turbinants. There is one small scabbed lesion to L nare near anterior nasal septum. No drainage or discharge. No fluctuance or abscess formation. No active epistaxis Respiratory: No respiratory distress Neurology: Alert. No aphasia or facial droop. Psych: Good mood and affect Assessment & Plan Assessment & Plan (1) Ear lesion: Code(s): H93.90 - Unspecified disorder of ear, unspecified ear Plan: dermatology referral given Nasal lesion he will use mupirocin ointment F/U with PCP next week Orders: Referrals 2 Dermatology Referral H93.90 - Unspecified disorder of ear, unspecified ear Medications: New 2 mupirocin 2% 1 appl topical BID 2 weeks 22 grams 0RF Coding Level of Care Code Est Pt Level 3 (90054) Diagnoses Ear lesion H93.90
[2024-11-08 10:38] VITALS: BP 120/84; PULSE 74; O2SAT 94; BMI 41.2
--- OUTSIDE RECORDS SUMMARY | 2024-11-08 12:19 | XMS_ITS | Encounter Summary ---
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 This section includes the names of all active insurance providers for the patient. Insurance Provider Type of Coverage Plan Name Start of Policy Coverage End of Policy Coverage Group Number Member ID Insurance Provider's Telephone Number Policy Cope's Name Patient's Relationship to Policy Cope RACHNA BCBS [facility] MEDICARE SUPPLEMEN BECCA PSEUD O MEDEX BRONZ E Jun 13, 2020 [id number] KAI SAL PATIENT [place] SUPPLEMEN BECCA MEDEX BRONZ E Jun 13, 2020 [id number] KAI SAL LD PATIENT MEDICARE (WNR) MEDICARE (M) PART A Jun 13, 2020 PART A [id number] [phone] KAI SAL PATIENT MEDICARE (WNR) MEDICARE (M) PART B Jun 13, 2020 PART B [id number] KAI SAL LD PATIENT MEDICARE (WNR) MEDICARE (M) PART A Jun 13, 2012 PART A [id number] [phone] KAI SAL PATIENT MEDICARE (WNR) MEDICARE (M) PART B Jun 13, 2012 PART B [id number] [phone] KAI SAL PATIENT MEDICARE (WNR) MEDICARE (M) PART A Jun 13, 2012 PART A [id number] [phone] KAI SAL PATIENT MEDICARE (WNR) MEDICARE (M) PART B Jun 13, 2012 PART B [id number] KAI SAL PATIENT Selected Encounter This section includes the information on record at [place] for the Encounter. Date/Time Encounter Type Encounter Description Reason Provider Source Dec 23, 2023 08:30 AM CPTR OPHTH DX IMG POST SEGMT OPTOMETRY ICD-10-CM H40.013 Open angle with borderline findings, low risk, bilateral TOY LOWRY IHE Encounter Template Text not used by [facility] Assessments - Encounter Diagnoses This section includes the primary and secondary diagnoses documented for the Encounter. Date/Time Primary/Secondary Diagnosis Diagnosis Name Provider Source January 14, 2024 11:19 AM PRIMARY Open angle with borderline findings, low risk, bilateral TOY LOWRY [place] [facility] [place] [facility] January 14, 2024 11:19 AM SECONDARY Macular cyst, hole, or pseudohole, bilateral CHANO LOWRYEL E [place] [facility] [place] [facility] January 14, 2024 11:19 AM SECONDARY Puckering of macula, bilateral TOY LOWRY [place] [facility] [place] [facility] Plan of Treatment: Future Appointments (+ 6 months) and Future Tests (+/- 45 days) The Plan of Treatment section includes future care activities for the patient from all [place] treatmentfacilities. This section includes future appointments and future orders which are active, pending or scheduled. Future Appointments This section includes appointments that were scheduled to occur 6 months from the date of the Encounter, up to a maximum of 20 appointments. The data comes from all [place] treatment facilities. Appointment Date/Time Appointment Type Appointme nt Facility Name Feb 14, 2024 08:30 AM AMBULATORY - MEDICINE [facility] [place] [facility] Social History: Smoking Status (Most current) and Tobacco Use (All prior to encounter date) This section includes the most current, and the historical, smoking and tobacco- related health factors from the [place] facility where the Encounter took place. Current Smoking Status This section includes the most current smoking, or tobacco-related health factor, from the [place] facility where the Encounter took place. Date/Time Current Smoking Status Comment Pat it Feb 12, 2023 08:30 AM VA-TOBACCO FORMER USER [place] [facility] [place] [facility] Tobacco Use History This section includes a history of the smoking, or tobacco-related health factors, that were collected on or before the date of the Encounter. The data comes from the [place] facility where the Encounter took place. Date/Time Smoking Status/Tobac co Use Comment Facility Feb 12, 2023 08:30 AM VA-TOBACCO QUIT 15 YRS OR MORE [place] [facility] [place] [facility] Feb 13, 2022 08:00 AM VA-TOBACCO FORMER USER [facility] [place] [facility] Feb 13, 2022 08:00 AM VA-TOBACCO QUIT 15 YRS OR MORE [place] [facility] [place] [facility] Feb 11, 2021 08:00 AM VA-TOBACCO FORMER USER [place] [facility] [place] [facility] Feb 11, 2021 08:00 AM VA-TOBACCO QUIT 15 YRS OR MORE [facility] [place] [facility] Dec 22, 2019 11:00 AM VA-TOBACCO FORMER USER [place] [facility] [place] [facility] Dec 22, 2019 11:00 AM VA-TOBACCO QUIT 15 YRS OR MORE [facility] [place] [facility] Feb 17, 2018 08:26 AM VA-TOBACCO NEVER USED [place] [facility] [place] [facility] Feb 17, 2018 07:48 AM LIFETIME NON-TOBACCO USER [place] [facility] [place] [facility] Mar 02, 2016 08:05 AM QUIT TOBACCO USE > 7 YEARS AGO PT STATES HE STOPEED 20 YRS AGO. [facility] [place] [facility] Apr 18, 2010 10:21 AM QUIT TOBACCO USE > 7 YEARS AGO [place] [facility] [place] [facility] Advance Directives: All historical and current Section Date Range: From patient's date of to the date document was created. This section includes ALL of a patient's completed or amended [facility] Advance and Rescinded Directives. The entries below indicate that a directive exists for the patient, but an actual copy is not included with this document. The data comes from all [place] facilities. Date Advance Directives Provider Source Feb 18, 2024 ADVANCE DIRECTIVE ALECIA WOOD [place] [facility] Encounter Notes: All associated encounter notes This section contains the clinical notes associated to the Encounter. Date/Time Encounter Note(s) Provider Source Dec 23, 2023 09:25 AM OPTOMETRY CONSULT: LOCAL TITLE: CONSULT REPORT/OPTOMETRY OCT STANDARD TITLE: OPTOMETRY CONSULT DATE OF NOTE: DEC 23, 2023@09:25 ENTRY DATE: DEC 23, 2023@09:25:51 AUTHOR: SONU MAR EXP COSIGNER: MARIANN LOWRY URGENCY: STATUS: COMPLETED CONSULT REPORT/OPTOMETRY OCT Has ADDENDA RNFL OCT report: RNFL OCT reviewed for Low Risk Glaucoma Suspect Secondary to larger disc size with OS>OD OD: average c/d 0.62, vertical c/d 0.63, disc area 2.14 mm^2. Average RNFL thickness 102 microns. No thinning noted all quadrants. OS: average c/d 0.69, vertical c/d 0.68, disc area 2.36 mm^2. Average RNFL thickness 89 microns. No thinning noted all quadrants. A/P: 1. Low Risk Glaucoma susepct OU secondary to large cupping OS>OD - Pt. educated on the risks of loosing peripheral vision if condition is left untreated and the risks of high eye pressures. Pt educated on the importance of collecting more data(IOP, OCT, HVF) in order t to confirm a diagnosis and therefore the importance of followup appointments. Treatment with glacouma drops is not initated at this time. Monitor condition. - RTC in 12 months, repeat imagining at that time if indicated Macula OCT report: Macula OCT reviewed for patient with Bilateral Epiretinal Membrane OU with lamellar macular hole OU OD: ERM with lamellar hole (-)SRF/IRF OS: ERM with lamellar hole (-)SRF/IRF A/P: 2. Bilateral Epiretinal Membrane OU with lamellar hole OU - stable findings to previous - currently affecting BCVA - monitor condition /leodan/ SONU MAR OPTOMETRY STUDENT Signed: 12/23/2023 13:55 /es/ Mariann Lowry OD CHIEF OF OPTOMETRY Cosigned: 12/24/2023 09:06 12/24/2023 ADDENDUM STATUS: COMPLETED Review optic nerve OCT obtained on patient followed as bilateral low risk glaucoma suspect secondary to optic nerve appearance. There is no evidence of glaucomatous loss noted in any quadrant either eye. We will continue to monitor his bilateral low risk glaucoma suspect with plan for repeat exam and repeat imaging in 12 months. +++++++++++++++++++++++ +++++++++++++++++++++++ +++++++++++++++++++++++ +++++++++++ +++++++++++++++++++++++ +++++++++++++++++++++++ +++++++++++++++++++++++ +++++++++++ Macular OCT obtained on patient with history of bilateral epiretinal membranes along with bilateral lamellar macular holes Epiretinal membrane with lamellar macular hole left greater than right eye but with stable acuity and stable physical examination and imaging. Will continue to monitor on an annual basis and plan for repeat exam with repeat macular OCT then. /leodan/ Mariann Lowry OD CHIEF OF OPTOMETRY Signed: 12/24/2023 09:09 SONU MAR [place] [facility]
--- OUTSIDE RECORDS SUMMARY | 2024-11-08 12:19 | XMS_ITS | Encounter Summary ---
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 Name Role Phone JASS WOOD Primary Care Provider Unavailabl e Insurance [...] Patient's Relationship to Policy Cope RACHNA BCBS [facility] MEDICARE SUPPLEMEN BECCA PSEUD O MEDEX BRONZ E Jun 13, 2020 [id number] KAI SAL PATIENT [place] SUPPLEMEN BECCA MEDEX BRONZ E Jun 13, 2020 [id number] [phone] KAI SAL LD PATIENT MEDICARE (WNR) MEDICARE (M) PART A Jun 13, 2020 PART A [id number] [phone] KAI SAL LD PATIENT MEDICARE (WNR) MEDICARE (M) PART B Jun 13, 2020 PART B [id number] KAI SAL LD PATIENT MEDICARE (WNR) MEDICARE (M) PART A Jun 13, 2012 PART A [id number] [phone] KAI SAL PATIENT MEDICARE (WNR) MEDICARE (M) PART B Jun 13, 2012 PART B [id number] KAI SAL PATIENT MEDICARE (WNR) MEDICARE (M) PART A Jun 13, 2012 PART A [id number] KAI SAL PATIENT MEDICARE (WNR) MEDICARE (M) PART B Jun 13, 2012 PART B [id number] KAI SAL PATIENT Selected Encounter This section includes the information on record at [place] for the Encounter. Date/Time Encounter Type Encounter Description Reason Provider Source Feb 14, 2024 08:30 AM OFFICE O/P EST LOW 20 MIN PRIMARY CARE/MEDICINE ICD-10-CM E11.9 Type 2 diabetes mellitus without complications JASS WOOD IH Encounter Template Text not used by [place] Assessments - Encounter Diagnoses This section includes the primary and secondary diagnoses documented for the Encounter. Date/Time Primary/Secondary Diagnosis Diagnosis Name Provider Source Mar 07, 2024 08:43 AM PRIMARY Type 2 diabetes mellitus without complications JASS WOOD [facility] Lab Results: +/- 30 days of the encounter This section includes the Chemistry and Hematology Lab Results on record with [place] for the patient. Radiology Reports and Pathology Reports are provided separately, in subsequent sections. Lab Results This section contains the Chemistry/Hematology Results that were resulted 30 days before or 30 daysafter the date of the Encounter. Date/Time Source Result Type Result - Unit Interpretation Reference Range Comment February 08, 2024 07:32 AM [facility] LIVER FUNCTION Specimen Type: SERUM No comment entered. Ordering Provider: JASS WOOD Report Released Date/Time: February 06, 2024 07:32 PM Reporting Lab: [facility] [address] [facility] [address] Performing Lab: [address] [address] PROTEIN,TOTAL 6.0 g/dL 6.0-8.3 ALBUMIN 3.7 g/dL 3.5-5.0 ALKALINE PHOSPHATASE 41 U/L 40-150 AST 18 U/L 5-34 ALT 21 U/L BILIRUBIN, TOTAL 0.8 mg/dL 0.2-1.2 February 08, 2024 07:32 AM [facility] BASIC METABOLIC PANEL (fasting) Specimen Type: SERUM No comment entered. Ordering Provider: JASS WOOD Report Released Date/Time: February 06, 2024 07:32 PM Reporting Lab: [facility] [address] [facility] [address] Performing Lab: [facility] [address] [facility] [address] UREA NITROGEN 14 mg/dL 7-25 GLUCOSE 126 mg/dL H 65-100 SODIUM 140 mmol/L 135-145 POTASSIUM 4.9 mmol/L 3.5-5.0 CHLORIDE 105 mmol/L 100-110 CO2 25 meq/L 20-30 CREATININE, Serum 1.10 mg/dL 0.50-1.40 eGFR(CKD-EPI 2020) 70 mL/min >60 February 08, 2024 07:32 AM [facility] TSH Specimen Type: SERUM No comment entered. Ordering Provider: JASS WOOD Report Released Date/Time: February 06, 2024 07:32 PM Reporting Lab: [facility] [address] [facility] [address] Performing Lab: [facility] [address] [facility] [address] TSH 1.39 u[IU]/mL 0.35-5.00 February 08, 2024 07:32 AM [facility] CBC AND DIFF (AUTO) Specimen Type: BLOOD No comment entered. Ordering Provider: JASS WOOD Report Released Date/Time: February 06, 2024 07:32 PM Reporting Lab: [facility] [address] [facility] [address] Performing Lab: [address] [address] WBC 6.68 10*3/uL 4.50-11.00 RBC 4.23 10*6/uL 4.23-5.66 HGB 13.7 g/dL 12.8-17 HCT 40.4 39.2-50.4 MCV 95.5 fL 82-99 MCHC 33.9 g/dL 30.8-35.1 PLT 196 10*3/uL 140-360 RDW-CV 12.6 12.0-16.0 [place], Abs 0.73 10*3/uL 0.30-1.10 MCH 32.4 pg 26.2-32.6 Neut % 68.4 43.7-75.8 Lymph % 16.6 14.0-42.3 [place] % 10.9 5.1-13.7 Eos % 3.1 0.4-6.8 Baso % 0.7 0.1-2.0 Neut, Abs 4.56 10*3/uL 2.20-7.60 Lymph, Abs 1.11 10*3/uL 1.00-3.20 Eos, Abs 0.21 10*3/uL 0.03-0.44 Baso, Abs 0.05 10*3/uL 0.01-0.13 Immature Gran % 0.3 0.0-0.7 Immature Gran, Abs 0.02 10*3/uL 0.00-0.06 February 08, 2024 07:32 AM [facility] LIPID PANEL FASTING Specimen Type: SERUM No comment entered. Ordering Provider: JASS WOOD Report Released Date/Time: February 06, 2024 07:32 PM Reporting Lab: [facility] [address] [facility] [address] Performing Lab: [address] [address] CHOLESTEROL 162 mg/dL TRIGLYCERIDE 112 mg/dL 0-150 LDL calculated 98 mg/dL 0-129 CHOL/HDL 3.9 HDL CHOLESTEROL 42 mg/dL 40-60 February 08, 2024 07:32 AM [facility] HEMOGLOBIN A1C PANEL Specimen Type: BLOOD Comment: Values obtained from A1C measurements can vary. For atypical A1C assays, a reported value of 7.0 could actually be between 6.72 and 7.28 if measured by a reference method. A reported value of 9.0 could actually be between 8.73 and 9.27. Ref: http://www.ngs p.org/CAPdata. asp Ordering Provider: JASS WOOD Report Released Date/Time: February 06, 2024 07:32 PM Reporting Lab: [facility] [address] [facility] [address] Performing Lab: [address] [address] HEMOGLOBIN A1C 5.6 4.0-5.6 February 08, 2024 07:32 AM [facility] MICROALBUMIN CREATININE RATIO PANEL Specimen Type: URINE No comment entered. Ordering Provider: JASS WOOD Report Released Date/Time: February 06, 2024 07:32 PM Reporting Lab: [facility] [address] [facility] [address] Performing Lab: [address] [address] MICROALBUMIN/C REATININE RATIO 12.9 mg/g 0-29.9 MICROALBUMIN,Q UANTITATIVE 1.4 mg/dL RR UNAVAIL CREATININE URINE 108.66 mg/dL February 08, 2024 07:32 AM [facility] URINALYSIS CLEAN CATCH Specimen Type: URINE Comment: If Glucose = >500 and Ketones are positive, please alert the Physician. Ordering Provider: JASS WOOD Report Released Date/Time: February 06, 2024 07:32 PM Reporting Lab: [facility] [address] [facility] [address] Performing Lab: [address] [address] UA COLOR Light-Yellow Yellow UA APPEARANCE Clear Clear UA GLUCOSE NEGATIVE mg/dL Negative UA KETONES NEGATIVE mg/dL Negative UA BLOOD NEGATIVE mg/dL Negative UA PROTEIN NEGATIVE mg/dL Negative UA NITRITE NEGATIVE mg/dL Negative UA BILIRUBIN NEGATIVE mg/dL Negative UA SPECIFIC GRAVITY 1.018 1.016-1.02 2 UA pH 6.0 5.0-9.0 UA UROBILINOGEN <2.0 mg/dL <2.0 UA LEUKOCYTE NEGATIVE Negative Vital Signs: All taken on the encounter date This section contains inpatient and outpatient Vital Signs collected on the date of the Encounter. Date/Time Temperature Pulse Blood Pressure Respiratory Rate SP02 Pain Height Weight Body Mass Index Source Feb 14, 2024 08:02 AM 98.2 60 127/67 20 94 0 69 276 41 [place] [facility] [place] [facility] Social History: Smoking Status (Most current) and Tobacco Use (All prior to encounter date) This section includes the most current, and the historical, smoking and tobacco- related health factors from the [place] facility where the Encounter took place. Current Smoking Status This section includes the most current smoking, or tobacco-related health factor, from the [place] facility where the Encounter took place. Date/Time Current Smoking Status Comment [facility] it Feb 14, 2024 08:30 AM VA-TOBACCO FORMER USER [place] [facility] [place] [facility] Tobacco Use History This section includes a history of the smoking, or tobacco-related health factors, that were collected on or before the date of the Encounter. The data comes from the [place] facility where the Encounter took place. Date/Time Smoking Status/Tobac co Use Comment [facility] Feb 14, 2024 08:30 AM VA-TOBACCO QUIT 15 YRS OR MORE [facility] [place] [facility] Feb 12, 2023 08:30 AM VA-TOBACCO FORMER USER [facility] [place] [facility] Feb 12, 2023 08:30 AM VA-TOBACCO QUIT 15 YRS OR MORE [facility] [place] [facility] Feb 13, 2022 08:00 AM VA-TOBACCO FORMER USER [facility] [place] [facility] Feb 13, 2022 08:00 AM VA-TOBACCO QUIT 15 YRS OR MORE [facility] [place] [facility] Feb 11, 2021 08:00 AM VA-TOBACCO FORMER USER [facility] [place] [facility] Feb 11, 2021 08:00 AM VA-TOBACCO QUIT 15 YRS OR MORE [facility] [place] [facility] Dec 22, 2019 11:00 AM VA-TOBACCO FORMER USER [facility] [place] [facility] Dec 22, 2019 11:00 AM VA-TOBACCO QUIT 15 YRS OR MORE [facility] [place] [facility] Feb 17, 2018 08:26 AM VA-TOBACCO NEVER USED [facility] [place] [facility] Feb 17, 2018 07:48 AM LIFETIME NON-TOBACCO USER [facility] [place] [facility] Mar 02, 2016 08:05 AM QUIT TOBACCO USE > 7 YEARS AGO PT STATES HE STOPEED 20 YRS AGO. [facility] Apr 18, 2010 10:21 AM QUIT TOBACCO USE > 7 YEARS AGO [facility] Advance Directives: All historical and current Section Date Range: From patient's date of to the date document was created. This section includes ALL of a patient's completed or amended [place] Advance and Rescinded Directives. The entries below indicate that a directive exists for the patient, but an actual copy is not included with this document. The data comes from all [place] facilities. Date Advance Directives Provider Source Feb 18, 2024 ADVANCE DIRECTIVE JASS WOOD [facility] Encounter Notes: All associated encounter notes This section contains the clinical notes associated to the Encounter. Date/Time Encounter Note(s) Provider Source Feb 14, 2024 08:42 AM PHYSICIAN NOTE: LOCAL TITLE: MD NOTE STANDARD TITLE: PHYSICIAN NOTE DATE OF NOTE: FEB 14, 2024@08:42 ENTRY DATE: FEB 14, 2024@08:42:16 AUTHOR: JASS WOOD EXP COSIGNER: URGENCY: STATUS: COMPLETED Patient Name: VEE SAL VITALS: Patient temperature: 98.2 F [36.8 C] (02/14/2024 08:02) Blood pressure: 127/67 (02/14/2024 08:02) Patient height: 69 in [175.3 cm] (02/14/2024 08:02) Patient weight: 276 lb [125.19 kg] (02/14/2024 08:02) Patient BMI: BMI: 40.8 Patient pulse: 60 (02/14/2024 08:02) Patient respiration: 20 (02/14/2024 08:02) Patient Pulse Oximetry: 94% (02/14/2024 08:02) Pain Ratin (02/14/2024 08:02) Active [facility] Medications: Active Outpatient Medications (including Supplies): Active Outpatient Medications Status 1) CARBOXYMETHYLCELLULOSE NA 0.5% OPH SOLN INSTILL 1 ACTIVE DROP INTO EACH EYE FOUR TIMES DAILY NEEDED FOR DRY EYE Active Non-VA Medications Status 1) Non-VA METFORMIN HCL TAB,ORAL BY MOUTH TWICE DAILY ACTIVE 2) Non-VA SIMVASTATIN 20MG TAB 10MG BY MOUTH AT BEDTIME ACTIVE 3 Total Medications Remote Medications: No Active 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 Romano History of present illness Patient takes metformin for diabetes. He feels well today with no complaints. He has had 30 pound voluntary weight loss in the past year. Review of systems No chest pain or dyspnea No abdominal pain No trouble urinating No fever or chills No cough Physical examination: Well developed well nourished in no apparent distress Vitals as above Heart: rrr, no m/r/g Lungs: clear to ausculatation Abdomen: soft, +bs, nontender, nondistended, no masses or guarding Extremities: no edema, no cyanosis or clubbing Neurologic: alert, normal gait, normal senory and motor, normal reflexes, EOMI, PERRLA, conjunctiva and sclera normal Psychiatric: answers questions appropriately, normal/coherent speech HEENT: mucious membranes moist Ears and pharynx: no erythema, tympanic membranes normal Neck: supple Urogenital: normal external male, no masses Skin: warm, dry, no lesions MICROALB/CR RATIO: 12.9 MICROALBUMIN URINE: 1.4 CREATININE URINE: 108.66 Color, Urine (AX 4280): Light-Yellow Appearance, Urine (AX 4280): Clear Glucose, Urine (AX 4280): NEGATIVE Ketones, Urine (AX 4280): NEGATIVE Blood, Urine (AX 4280): NEGATIVE Protein, Urine (AX 4280): NEGATIVE Nitrite, Urine (AX 4280): NEGATIVE Bilirubin, Urine (AX 4280): NEGATIVE Specific [place], (AX 4280): 1.018 pH, Urine (AW1486): 6.0 Urobilinogen, Urine (AX 4280): <2.0 Leukocyte Esterase, (AX 4280): NEGATIVE GLUCOSE: 126 H UREA NITROGEN: 14 SODIUM: 140 POTASSIUM: 4.9 CHLORIDE: 105 CO2: 25 CHOLESTEROL: 162 PROTEIN,TOTAL: 6.0 ALBUMIN: 3.7 ALKALINE PHOSPHATASE: 41 SGOT: 18 SGPT: 21 TRIGLYCERIDE: 112 LDL CHOL: 98 CHOL/HDL RATIO: 3.9 HDL: 42 BILIRUBIN,TOT.: 0.8 TSH (Access): 1.39 CREATININE-EGFR: 1.10 eGFR CKD-EPI 2020: 70 HGB A1C (WR): 5.6 WBC: 6.68 RBC: 4.23 HGB: 13.7 HCT: 40.4 MCV: 95.5 MCHC: 33.9 RDW: 12.6 PLT: 196 MCH: 32.4 Neut %: 68.4 Lymph %: 16.6 [place] %: 10.9 Eos %: 3.1 Baso %: 0.7 Neut, Abs: 4.56 Lymph, Abs: 1.11 [place], Abs: 0.73 Eos, Abs: 0.21 Baso, Abs: 0.05 Immature Granulocytes %: 0.3 Immature Granulocytes, Abs: 0.02 I discussed above test results with patient Assessment and plan: 1. Diabetes mellitus: Hemoglobin A1c is well controlled Plan continue metformin Follow-up 1 year clinic visit and lab Patient declined all vaccines today Pneumococcal Conjugate Vaccine (PCV15/PCV20): Refuses PCV vaccine Immunization: PNEUMOCOCCAL CONJUGATE, UNSPECIFIED FORMULATION Refusal Reason: PATIENT DECISION Patient refuses all immunization(s) in the PneumoPCV group Date Documented: 02/14/24 08:45 Medication Reconciliation: Outpatient: Has the patient been taking medications as documented in the EMLR? YES: The patient has been taking medications as documented in the EMLR. Essential Medication List for Review used to complete this medication reconciliation. INCLUDED IN THIS LIST: Alphabetical list of active outpatient prescriptions dispensed from this [facility] (local) and dispensed from another [place] or [facility] facility (remote) as well as inpatient orders (local, pending and active), local clinic medications, locally documented non-VA medications, and local prescriptions that have or been discontinued in the past 90 days. - All changes in medications, including all non-VA/Herbal/OTC medications were entered into CPRS. - If there were any medications the patient should no longer take, they were discontinued. - The patient/caregiver was instructed to update this list, discard old lists, and take this list to the next appointment, whether with a VA or non-VA provider. Td / Tdap Immunization: The patient declines to receive the recommended dose of Td/Tdap vaccine. Immunization: TD(ADULT) UNSPECIFIED FORMULATION Refusal Reason: PATIENT DECISION Patient refuses all immunization(s) in the Td group Date Documented: 02/14/24 08:45 COVID-19 Immunization: Refused Moderna Monovalent COVID-19 vaccine Immunization: COVID-19 (MODERNA), MRNA, LNP-S, PF, 50 MCG/0.5 ML (AGES 12+ YEARS) Refusal Reason: PATIENT DECISION Patient refuses all immunization(s) in the COVID-19 group Date Documented: 02/14/24 08:46 Herpes Zoster (Shingles) Vaccine: The patient declines to receive the recommended dose of zoster (shingles) vaccine. Immunization: ZOSTER RECOMBINANT Refusal Reason: PATIENT DECISION Patient refuses all immunization(s) in the ZOSTER group Date Documented: 02/14/24 08:46 Sexual Orientation: The patient thinks of their sexual orientation as: Straight or Heterosexual PAVE Foot Check: A complete foot check was completed at this encounter. VISUAL INSPECTION: Includes inspection for skin breaks, deformity, erythema, trauma, pallor on elevation, dependent rubor, nail deformities, extensive callus and pitting edema. Visual exam results: Normal PEDAL PULSES: Includes palpation of dorsalis and posterior tibial pulses and signs/symptoms of vascular compromise like pain, pallor, parasthesia or paralysis. Present (even if diminished) SENSORY CHECK: Includes 10 gram Monofilament ([place]) test of sensation. Intact (Greater than or equal to 80% of sites checked) Abnormal (Less than 80% of sites checked): Intact LOW-RISK: LOW RISK INFORMATION PROVIDED: 1. Advised patient not to walk barefoot. 2. Explained the importance of daily foot checks for changes. 3. Stressed the importance of daily foot hygiene, including bathing and complete drying. The patient verbalized understanding and was offered a detailed handout on diabetic foot care. /leodan/ Jass Wood MD Staff Physician Signed: 02/14/2024 08:47 JASS WOOD [place] [facility] [place] [facility] Feb 14, 2024 08:08 AM PREVENTIVE MEDICINE NURSING NOTE: LOCAL TITLE: CLINICAL REMINDERS/NURSING STANDARD TITLE: PREVENTIVE MEDICINE NURSING NOTE DATE OF NOTE: FEB 14, 2024@08:08 ENTRY DATE: FEB 14, 2024@08:08:23 AUTHOR: GILBERTO CORRAL COSIGNER: URGENCY: STATUS: COMPLETED Advance Directive Screen MH AD: Patient does not have a completed advance directive on file at any facility, VA or outside. S/he is not interested in completing one at this time. The patient received education about Advance Directives and written notification of his/her rights. Suicide Screen: C-SSRS Screening [place]-Suicide Severity Rating Scale (C-SSRS Screener) 1. Over the past month, have you wished you were or wished you could go to sleep and not wake up? No 2. Over the past month, have you had any actual thoughts of killing yourself? No 3. Over the past month, have you been thinking about how you might do this? Response not required due to responses to other questions. 4. Over the past month, have you had these thoughts and had some intention of acting on them? Response not required due to responses to other questions. 5. Over the past month, have you started to work out or worked out the details of how to kill yourself? Response not required due to responses to other questions. 6. If yes, at any time in the past month did you intend to carry out this plan? Response not required due to responses to other questions. 7. In your lifetime, have you ever done anything, started to do anything, or prepared to do anything to end your life (for example, collected pills, obtained a gun, gave away valuables, went to the roof but didn't jump)? No 8. If YES, was this within the past 3 months? Response not required due to responses to other questions. Homelessness/Food Insecurity Screen: In the past 2 months, have you been living in stable housing that you own, rent, or stay in as part of a household? Yes - Living in stable housing. Are you worried or concerned that in the next 2 months you may NOT have stable housing that you own, rent, or stay in as part of a household? No - Not worried about housing near future The reports the following: Within the past 12 months, you worried whether your food would run out before you got money to buy more. Never true Within the past 12 months, the food you bought just didn't last and you didn't have money to get more. Never true Depression Screening: Perform PHQ-2 A PHQ-2 screen was performed. The score was 0 which is a negative screen for depression. Over the past two weeks, how often have you been bothered by the following problems? 1. Little interest or pleasure in doing things Not at all 2. Feeling down, depressed, or hopeless Not at all Tobacco Use Screening: The patient is a former tobacco user. The patient quit fifteen or more years ago. Alcohol Use Screen (AUDIT-C): Alcohol Screen: SCREEN FOR ALCOHOL (AUDIT-C) An alcohol screening test (AUDIT-C) was negative (score=1). 1. How often did you have a drink containing alcohol in the past year? Consider a drink to be a 12 ounce can or bottle of regular beer, 8 ounces of malt liquor, a 5 ounce glass of table wine, or a 1.5 ounce shot of liquor (like scotch, gin, or vodka). Monthly or less 2. How many drinks containing alcohol did you have on a typical day when you were drinking in the past year? One or two drinks 3. How often did you have six or more drinks on one occasion in the past year? Never /leodan/ Gil[facility] Utility Bill Collection Clerk YACHT RIGGER,PRIMARY CARE Signed: 02/14/2024 08:10 GILBERTO CORRAL [place] [facility]
--- OUTSIDE RECORDS SUMMARY | 2024-11-08 12:19 | XMS_ITS | Encounter Summary ---
Author Name [facility] Organization [facility] [place] Address [address] [place] [id number] Care Team Providers Care Acid Supervisor Name Role Phone ALECIA WOOD Primary Care [...] Patient's Relationship to Policy Cope RACHNA BCBS [facility] MEDICARE SUPPLEMEN BECCA PSEUD O MEDEX BRONZ E Jun 13, 2020 [id number] KAI SAL PATIENT [place]BS [place] MED[place] SUPPLEMEN BECCA MEDEX BRONZ E Jun 13, 2020 [id number] KAI SAL LD PATIENT MEDICARE (WNR) MEDICARE (M) PART A Jun 13, 2020 PART A [id number] KAI SAL LD PATIENT MEDICARE (WNR) MEDICARE (M) PART B Jun 13, 2020 PART B [id number] KAI SAL LD PATIENT MEDICARE (WNR) MEDICARE (M) PART A Jun 13, 2012 PART A [id number] [phone] KAI SAL PATIENT MEDICARE (WNR) MEDICARE (M) PART B Jun 13, 2012 PART B [id number] KAI SAL PATIENT MEDICARE (WNR) MEDICARE () PART A Jun 13, 2012 PART A [id number] KAI SAL PATIENT MEDICARE (WNR) MEDICARE () PART B Jun 13, 2012 PART B [id number] KAI SAL PATIENT Selected Encounter This section includes the information on record at [place] for the Encounter. Date/Time Encounter Type Encounter Description Reason Provider Source Dec 23, 2023 09:00 AM COMPRE OPH EXAM EST PT 1/> OPTOMETRY ICD-10-CM E11.9 Type 2 diabetes mellitus without complications CASSANDRA LOWRY Vlad Encounter Template Text not used by [place] Assessments - Encounter Diagnoses This section includes the primary and secondary diagnoses documented for the Encounter. Date/Time Primary/Secondary Diagnosis Diagnosis Name Provider Source Dec 23, 2023 10:10 AM PRIMARY Type 2 diabetes mellitus without complications CASSANDRA LOWRY [facility] [place] [facility] Dec 23, 2023 10:10 AM SECONDARY Combined forms of age-related cataract, bilateral CASSANDRA LOWRY [facility] [place] [facility] Dec 23, 2023 10:10 AM SECONDARY Dry eye syndrome of bilateral lacrimal glands CASSANDRA LORWY [facility] [place] [facility] Dec 23, 2023 10:10 AM SECONDARY Macular cyst, hole, or pseudohole, left eye CASSANDRA LOWRY [facility] [place] [facility] Dec 23, 2023 10:10 AM SECONDARY Macular cyst, hole, or pseudohole, right eye ESSENCECASSANDRA BAKER [facility] [place] [facility] Dec 23, 2023 10:10 AM SECONDARY Open angle with borderline findings, low risk, bilateral CASSANDRA LOWRY [facility] [place] [facility] Dec 23, 2023 10:10 AM SECONDARY Puckering of macula, bilateral CASSANDRA LOWRY [facility] [place] [facility] Plan of Treatment: Future Appointments (+ 6 months) and Future Tests (+/- 45 days) The Plan of Treatment section includes future care activities for the patient from [facility] This section includes future appointments and future orders which are active, pending or scheduled. Future Appointments This section includes appointments that were scheduled to occur 6 months from the date of the Encounter, up to a maximum of 20 appointments. The data comes from all [place] treatment facilities. Appointment Date/Time Appointment Type Appointme nt Facility Name Feb 14, 2024 08:30 AM AMBULATORY - MEDICINE [place] [facility] [place] [facility] Social History: Smoking Status (Most current) and Tobacco Use (All prior to encounter date) This section includes the most current, and the historical, smoking and tobacco- related health factors from the [place] facility where the Encounter took place. Current Smoking Status This section includes the most current smoking, or tobacco-related health factor, from the [place] facility where the Encounter took place. Date/Time Current Smoking Status Comment Pat it Feb 12, 2023 08:30 AM VA-TOBACCO QUIT 15 YRS OR MORE [facility] Tobacco Use History This section includes a history of the smoking, or tobacco-related health factors, that were collected on or before the date of the Encounter. The data comes from the [place] facility where the Encounter took place. Date/Time Smoking Status/Tobac co Use Comment Facility Feb 12, 2023 08:30 AM VA-TOBACCO QUIT 15 YRS OR MORE [facility] [place] [facility] Feb 13, 2022 08:00 AM VA-TOBACCO FORMER USER [facility] [place] [facility] Feb 13, 2022 08:00 AM VA-TOBACCO QUIT 15 YRS OR MORE [facility] [place] [facility] Feb 11, 2021 08:00 AM VA-TOBACCO FORMER USER [facility] [place] [facility] Feb 11, 2021 08:00 AM VA-TOBACCO QUIT 15 YRS OR MORE [facility] [place] [facility] Dec 22, 2019 11:00 AM VA-TOBACCO FORMER USER [facility] [place] [facility] Dec 22, 2019 11:00 AM VA-TOBACCO QUIT 15 YRS OR MORE [facility] [place] [facility] Feb 17, 2018 08:26 AM VA-TOBACCO NEVER USED [facility] [place] [facility] Feb 17, 2018 07:48 AM LIFETIME NON-TOBACCO USER [facility] Mar 02, 2016 08:05 AM QUIT TOBACCO USE > 7 YEARS AGO PT STATES HE STOPEED 20 YRS AGO. [facility] Apr 18, 2010 10:21 AM QUIT TOBACCO USE > 7 YEARS AGO [facility] Advance Directives: All historical and current Section Date Range: From patient's date of to the date document was created. This section includes ALL of a patient's completed or amended [place] Advance and Rescinded Directives. The entries below indicate that a directive exists for the patient, but an actual copy is not included with this document. The data comes from all [place] facilities. Date Advance Directives Provider Source Feb 18, 2024 ADVANCE DIRECTIVE ALECIA WOOD [facility] Encounter Notes: All associated encounter notes This section contains the clinical notes associated to the Encounter. Date/Time Encounter Note(s) Provider Source Dec 23, 2023 09:52 AM OPTOMETRY NOTE: LOCAL TITLE: OPTOMETRY NOTE STANDARD TITLE: OPTOMETRY NOTE DATE OF NOTE: DEC 23, 2023@09:52 ENTRY DATE: DEC 23, 2023@09:53:02 AUTHOR: MARIANN LOWRY COSIGNER: URGENCY: STATUS: COMPLETED I saw this patient in conjunction with the student and agree with the stated findings and plan as noted below after reviewing both the history and repeating elam elements of the physical exam now. Patient last seen July 07, 2022 returns today for comprehensive eye examination. His ocular history is significant for diabetes without retinopathy or macular edema either eye. Bilateral epiretinal membrane with lamellar macular hole left greater than right I followed in the past by [facility], bilateral cataracts as well as bilateral low risk glaucoma suspect. 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 His most recent hemoglobin A1c obtained on February 05, 2023 was 6.3. He notes isolated episode of floater right eye back in the fall not associated with flashes or decreased vision and with resolved awareness of floater right eye. 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 Early nuclear sclerotic and cortical cataracts not visually significant at present. There is no evidence of pseudoexfoliation or pigment dispersion either eye and previously obtained pachymetry is thicker than average at 506 ??m right eye 594 ??m left eye. Dilated retinal examination shows larger disc size with larger cupping but without evidence of nerve fiber layer loss or defect either eye. Epiretinal membrane each eye with lamellar macular hole left greater than right eye but with stable acuity each eye. Diabetes without retinopathy or macular edema either eye. Impression: Diabetes without retinopathy or macular edema either eye. Stressed the importance of optimize control of blood sugar, blood pressure and cholesterol with healthy lifestyle. Bilateral epiretinal membrane with bilateral lamellar macular hole left greater than right eye with stable acuity. We will continue to monitor annually. Bilateral nuclear sclerotic and cortical cataracts functioning well visually at present. Ordering new glasses today. Bilateral low risk glaucoma suspect secondary to optic nerve appearance. Physical examination and repeat optic nerve OCT remained stable. There is no evidence of pseudoexfoliation or pigment dispersion and previously obtained pachymetry is thicker than average each eye. We will continue to monitor his bilateral low risk glaucoma suspect with plan for repeat optic nerve OCT in 12 months. 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 Recommend use of lubricating drops 3 times a day each eye will order now for mail out. 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 Plan: Patient education as noted above reviewed exam findings now. Order lubricating for mail out to be used up to 4 times a day as needed for symptoms of dry eye disease. Update glasses today. Return in 12 months for repeat exam with repeat optic nerve and macular OCT. Return sooner if need be. Ophthalmic medication reconciliation: The patient is prescribed lubricating drops to be used up to 4 times a day as needed for relief of dry eye symptoms. Medication Reconciliation: Outpatient: Has the patient been taking medications as documented in the EMLR? YES: The patient has been taking medications as documented in the EMLR. Essential Medication List for Review used to complete this medication reconciliation. INCLUDED IN THIS LIST: Alphabetical list of active outpatient prescriptions dispensed from this [place] (local) and dispensed from another [place] or [facility] facility (remote) as well as inpatient orders (local, pending and active), local clinic medications, locally documented non-VA medications, and local prescriptions that have or been discontinued in the past 90 days. - All changes in medications, including all non-VA/Herbal/OTC medications were entered into CPRS. Changes: Lubricating drops up to 4 times a day each eye for dry eye symptoms - If there were any medications the patient should no longer take, they were discontinued. - The patient/caregiver was instructed to update this list, discard old lists, and take this list to the next appointment, whether with a VA or non-VA provider. Medication List: JLV Link Data on this list may not be complete. Please check JLV. Allergies/ADRs (Tool #5) FACILITY ALLERGY/ADR -------- No Remote Allergy/ADR Data available for this patient [place] [facility] [place] [facility] No Known Allergies Med. Reconciliation (Tool #1) INCLUDED IN THIS LIST: Alphabetical list of active outpatient prescriptions dispensed from this VA (local) and dispensed from another VA or [facility] facility (remote) as well as inpatient orders (local pending and active), local clinic medications, locally documented non-VA medications, and local prescriptions that have or been discontinued in the past 90 days. Non-VA Meds Last Documented On: Feb 11, 2021 NOTE The display of VA prescriptions dispensed from another VA or [facility] facility (remote) is limited to active outpatient prescription entries matched to National Drug File at the originating site and may not include some items such as investigational drugs, compounds, etc. NOT INCLUDED IN THIS LIST: Medications self-entered by the patient into personal health records (i.e. [employer]) are NOT included in this list. Non-VA medications documented outside this [place], remote inpatient orders (regardless of status) and remote clinic medications are NOT included in this list. The patient and provider must always discuss medications the patient is taking, regardless of where the medication was dispensed or obtained. Non-VA METFORMIN HCL TAB,ORAL TAKE BY MOUTH TWICE DAILY Non-VA medication not recommended by SD provider. Non-VA SIMVASTATIN 20MG TAB TAKE ONE-HALF TABLET BY MOUTH AT BEDTIME Patient wants to buy from Non-SD pharmacy. Medication prescribed by Non-SD provider. SUPPLIES PHARMACY TERMS AND POSSIBLE PATIENT ACTIONS INPT = SD inpatient order IV = SD intravenous medication OUTPT = SD outpatient prescription PHARMACY POSSIBLE PATIENT TERMS EXPLANATION ACTIONS -------- --- ACTIVE A prescription that can be If you have refills, filled at the local [place] pharmacy. you may request a refill of this prescription from your [place] pharmacy. CLINIC A medication you received during If you have questions a visit to a SD clinic or about this medication emergency department. contact your [place] healthcare team. DISCONTINUED A prescription your provider has Contact your SD stopped. It is no longer healthcare team if you available to be sent to you or need more of this picked up at the SD pharmacy medication. window. A prescription which is too old Contact your VA to fill. This does not refer to healthcare team if you the expiration date of the need more of this medication in the container. medication. NON-VA A medication that came from If this medication someplace other than a VA information is pharmacy. This may be a incorrect or out of prescription from either the VA date, please tell your or non VA providers that was VA healthcare team. filled outside the VA. Or, it may be an riim-mer-ndsiuxz (OTC), herbal, dietary supplements or sample medication. ON HOLD An active prescription that will Contact your VA not be filled until pharmacy pharmacy when you need resolves the issue. more of this medication. PARKED An active prescription that will Contact your VA not be filled until the patient pharmacy when you need requests it. this medication. PENDING This prescription order has been If you have been sent to the pharmacy for review instructed to start and is not ready yet. this medication now, contact your VA pharmacy. SUSPENDED An active prescription that is Contact your SD not scheduled to be filled yet. pharmacy if you need You should receive it before this medication now. you run out. ======== Declines printed copy of medication list now /es/ Mariann Lowry CHIEF OF OPTOMETRY Signed: 12/23/2023 10:10 MARIANN LOWRY [place] [facility] [place] [facility] Dec 23, 2023 08:57 AM OPTOMETRY NOTE: LOCAL TITLE: OPTOMETRY NOTE STANDARD TITLE: OPTOMETRY NOTE DATE OF NOTE: DEC 23, 2023@08:57 ENTRY DATE: DEC 23, 2023@08:57:48 AUTHOR: SONU MAR EXP COSIGNER: MARIANN LOWRY URGENCY: STATUS: COMPLETED Active problems - Computerized Problem List is the source for the followin. Hypercholesterolemia 2. Diabetes Mellitus Type 2 ([facility] [id number]) 3. Impaired fasting glucose 4. Impaired fasting glycaemia ([facility] [id number]) 5. Tremor 6. Disc Disease Active Outpatient Medications (including Supplies): Active Non-VA Medications Status 1) Non-VA METFORMIN HCL TAB,ORAL BY MOUTH TWICE DAILY ACTIVE 2) Non-VA SIMVASTATIN 20MG TAB 10MG BY MOUTH AT BEDTIME ACTIVE Allergies: Patient has answered NKA All medications including those prescribed by outside VA's, community providers, and all OTC meds were reviewed and reconciled with patient to the best of their abilities. This 73 year old MALE is seen today for a diabetic eye exam Chief Complaint: Pt. complains of his eyes watering when he reads OU, pt. does not currently use any eyedrops . Pt. currently uses progressives, but would like separate DVO and NVO. Diabetic: Yes Last A1c:6.5 according to patient OHx: 1. Type II diabetes without diabetic retinopathy or macular edema OU 2. ERM OU with macular hole 3. NS cat OU 4. Low Risk Glaucoma Suspect OU (-) Pain: (-) NUÑEZ: (-) Diplopia: (-) Flashes: (-) Floaters: (-) Amaurosis Fugax/Tia's: (-) Eye Injury: (-) Eye Surgery: (-) TBI Family Ocular History: (-) Glaucoma/ARMD/Blindness Social History: (-) Smoker/Length of Time/PPD: Former smoker, quit 20 years ago Current Rx with last BCVA: OD: +0.50 -0.75 axis 075 20/20 OS: +1.25 -1.25 axis 085 20/25-2 ADD: +2.50 DVA ( )sc (x)cc OD: 20/25 OS: 20/30-2 Pupils: PERRL (-)APD EOMs: SAFE OU, (-)Pain/Diplopia CVF (facial, peripheral): FTFC OU Subjective Refraction: OD: +0.50 -0.75 axis 075 20/20 OS: +1.25 -1.25 axis 085 20/25-2 ADD: +2.50 All the above performed by student, reviewed by attending Anterior segment: Performed by student, repeated by attending Lids: pedunculated papilloma UL OU Conj: white and quiet OU Cornea: clear OU AC: 4x4 OU Iris: flat and clear OU (-)NVI OU Lens: 1+NS OU, 1+ACC OU, (-) PXD/PDS Tonometry: Performed by student, reviewed by attending OD 18 mmHg OS 18 mmHg Time: 9:21am Fundus exam: Dilated: @9:22am Dilating Drops: 1GTT 1 % Tropicamide OU & 1GTT 2.5% Phenylephrine OU (Pt. ed. on side effects, dilation warning given and verbal consent obtained) Patient advised not to drive if they feel they have any symptoms which could affect their ability to drive safely. Patient advised not to engage in any activities which could put themselves or others at risk if they feel they have any symptoms which could affect their ability to perform those activities safely. Performed by student, repeated by attending Vit: clear OD, PVD OS C/D: 0.60/0.60 OD, 0.65/0.65 OS Disc: Rim tissue is pink and healthy OU (-)NVD OU (-)drance hemes/notching OU Macula: ERM with lamellar hole OU, (-)DBH/CSME OU, (-)SRF/SRH OU PPole: clear, (-)DBH/CWS/SIMON/VB OU A/V: 2/3 Vessels: normal caliber OU Periph: flat and intact (-)holes, tears, detachments 360 OU (-)NVE OU Assessment/Plan: 1. Type II diabetes without diabetes retinpathy or macular edema OU - pt. ed on today's findings. Patient educated on the imporatance of following up with PCP in recommended timed intervals for control of systemic health and diabetes. Pt. told to continue taking medications as recommended by doctor and maintaing a healthy diet along with exercise. 2. Bilateral Epiretinal Membrane OU with lamellar hole OU - stable findings to previous - affecting BCVA - monitor condition 3. Low Risk Glaucoma susepct OU secondary to large cupping OS>OD - Pt. educated on the risks of loosing peripheral vision if condition is left untreated and the risks of high eye pressures. Pt educated on the importance of collecting more data(IOP, OCT, HVF) in order to confirm a diagnosis and therefore the importance of followup appointments. Treatment with glacouma drops is not initated at this time. Monitor condition. - RTC in 12 months, repeat imagining at that time if indicated 4. Combined Age Related Cataracts OU - Pt. ed on today's findings - pt. ed on importance of using sunprotection to slow progression of cataract development - no cataract surgery needed at this time - return to [facility] in 1 year or prn 5. Dry Eye Syndrome OU - Pt. ed on findings and the use of AT's about 3-4x a day - monitor condition 6. Multiple pedunculated Pappilomas upper lid OU - no high risk characteristics - monitor condition Return to Clinic 12 or earlier PRN Patient Education: Diabetes: Patient was educated regarding diabetes and related ocular complications including retinopathy and cataract formation as well as other related systemic complications. The importance of good blood sugar control, blood sugar testing as recommended by their PCP and the importance of timely follow up were all emphasized. Glaucoma: Patient was educated regarding glaucoma/glaucoma suspect as well as the natural history of this diagnosis including prognosis. Stress importance of compliance and persistency with glaucoma medication when prescribed, timely follow up as well as the role of ancillary testing. Exclusion criteria for ancillary testing include significantly reduced acuity, mental status changes affecting the patient's ability to attend to the test or other physical limitations that would prohibit the patient's ability to participate in testing. /leodan/ SONU MAR OPTOMETRY STUDENT Signed: 12/23/2023 13:55 /leodan/ Mariann Lowry OD CHIEF OF OPTOMETRY Cosigned: 12/24/2023 09:05 SONU MAR [facility]
--- OUTSIDE RECORDS SUMMARY | 2024-11-08 12:20 | XMS_ITS ---
Author Organization [facility] Address [address] [place] [id number] Care Team Providers Care Sap Hana Architect Name Role Phone Po Daniel THOMASON Primary Care Provider Mac Rose [phone] REASON FOR VISIT refill pantoprazole Encounters Encounter Location Date Provider Diagnosis [facility] [address] [place] [phone] 03/14/2024 Mac Garcia PLAN OF TREATMENT No Information
--- OUTSIDE RECORDS SUMMARY | 2024-11-08 12:20 | XMS_ITS | Patient Health Record ---
Author Organization [facility] Address [address] [place] [id number] Care Team Providers Care Medical Researcher Name Role Phone Daniel Romano MD Primary Care Provider Mac Rose [phone] ALLERGIES Allergen (clinical drug ingredient) Drug/Non Drug Allergy documented on EMR Reaction Allergy Type Onset Date Status Lamisil Unknown Drug Allergy Active REASON FOR REFERRAL No Information MEDICATIONS Medication SIG (Take, Route, Frequency, Duration) Notes Start Date End Date Status Multi Vitamin/Minerals - 1 Orally QD Active Vitamin D 2000 UNIT 1 tablet Orally Once a day Active Simvastatin 5 MG 1 tablet in the even ing Orally Once a day Active Gabapentin 400 MG 1 capsule Orally Onc e a day Active traZODone HCl 100 MG 1 tablet at bedtime Orally Once a day Active Aspir-81 81 MG 1 tablet Orally Once a day Active metFORMIN HCl 500 MG 1 tablet with meals Orally Twice a day Active Ventolin HFA 108 (90 Base) MCG/ACT 2 puffs as needed Inhalation every 6 hrs Active Glucosamine 500 MG 1capsule with a meal Orally Three times a day Active IMMUNIZATIONS Vaccine Route Administration Date Status Comme nts Flu vaccine no Preserv 3 and > Unknown 05/25/2017 Admin istered SOCIAL HISTORY Tobacco Use: Social History Observation Description Date Details (start date - stop date) Former Smoker NA - NA Sex Assigned At : Social History Observation Description Sex Assigned At Unknown Tobacco Use/Smoking Question Answer Notes Patient is a former smoker How long has it been since you last smoked? > 10 years Alcohol Screen Question Answer Notes Did you have a drink contain ing alcohol in the past year? Yes How often did you have a dri nk containing alcohol in the past year? Monthly or less (1 point) How many drinks did you have on a typical day when you were drinking in the past year? 1 or 2 drinks (0 point) How often did you have 6 or more drinks on one occasion in the past year? Never (0 point) Points 1 Interpretation Negative PROBLEMS Problem Type ICD Code Onset Dates Problem Status W/U Status Risk SNOMED Code Notes Problem Encounter for screening for malignant neoplasm of colon (Z12.11) Active confirmed 489126154 Problem Aspirin long-term use (Z79.82) Active confirmed 656294971 Problem Hypertension, unspecified type (I10) Active confirmed 26071210 Encounters Encounter Location Date Provider Diagnosis [facility] [address] [place] [address] 03/14/2024 Mac Garcia PLAN OF TREATMENT Future Test Test Name Order Date COLONOSCOPY 12/30/2017 Insurance Providers Payer Name Payer Address Payer Phone Subscriber Number Group Number Insured Name Patient Relationship to Insured Coverage Start Date Coverage End Date MEDICARE OF [place] [address] [place] [id number] [phone] [id number] VEE SAL Self - patient is the insured MEDICAID OF [facility] [address] [place] [address] [id number] VEE SAL Self - patient is the insured MEDICAL (GENERAL) HISTORY Medical History History ICD Code Denies PA,CVA,renal disease COPD NIDDM Neuropathy in feet Sleep apnea--uses CPAP Negative colonoscopies in 31 12 and 2006 other than diverticulosis and internal hemorrhoids Surgical History Surgery Date(Month/Year) Left knee replacement 2016 Right knee replacement 2015 Right hip replacement 2014 Metal plates due to femur surgery 2016 Pericarditis with pericardectomy in the Rectal fistula Lumbar disc
--- OUTSIDE RECORDS SUMMARY | 2024-11-08 12:20 | XMS_ITS | Continuity of Care Document ---
Author Name [facility] Organization [facility] Care Team Providers Care Quality Control Analyst Name Role Phone [facility] Unavailable Unavailable Problems Combined list of problems from 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 It does not include entries that were removed or entered in error. Problem Status Onset Date Problem Type Date of Resolution Comments Source Hypercholesterolemia Active 019 Condition Feb 14, 2019 Entered By: ALECIA WOOD Comment: treated with medication [facility] Impaired fasting glycaemia (SNOMED [place] [id number]) Active 014 Condition [facility] Tremor Active 010 Condition [facility] Disc Disease Active 009 Condition [facility] Diabetes Mellitus Type 2 ([facility] [id number]) Active Condition [facility] Impaired fasting glucose Active Condition [facility] Unspecified disorder of ear (ICD-9-CM 388.9) Active Condition [facility] Diagnosis: ICD-10-CM E11.9 Type 2 diabetes mellitus without complications Active Diagnosis [facility] Diagnosis: ICD-10-CM Z46.0 Encounter for fit/adjst of spectacles and contact lenses Active Diagnosis [facility] Diagnosis: ICD-10-CM H40.013 Open angle with borderline findings, low risk, bilateral Active Diagnosis [facility] Medications Combined list of outpatient medications from 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Medications provided include 1) outpatient medications from the last 15 months, and 2) patient-reported medications. Medication Details Route Status Patient Instructions Prescription Expires Prescription Number Last Dispense Date Ordering Provider Order Date Order Qty Source CARBOXYMETH YLCELLULOSE NA 0.5% SOLN,OPH INSTILL 1 DROP INTO EACH EYE FOUR TIMES DAILY NEEDED FOR DRY EYE OPHTHA LMIC ACTIVE 12/23/2024 [id number] Rocky LOWRY 2023 15 [facility] METFORMIN HCL TAB,ORAL TAKE BY MOUTH TWICE DAILY ORAL ACTIVE Rocky LOWRY 2018 [facility] SIMVASTATIN 20MG TAB TAKE ONE-HALF TABLET BY MOUTH AT BEDTIME ORAL ACTIVE JOSH WOOD 2023 [facility] Immunizations Combined list of available immunizations from the 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 Immunization Series Date Given Administered By Site Reaction Lot Number CVX Code Drug Corsage Maker Status Comments Source INFLUENZA, UNSPECIFIED FORMULATION 2021 88 complet ed [facility] COVID-19 (PFIZER), MRNA, LNP-S, PF, 30 MCG/0.3 ML DOSE 3 2020 208 complet ed [facility] COVID-19 (PFIZER), MRNA, LNP-S, PF, 30 MCG/0.3 ML DOSE 2 2020 208 complet ed Lot#: [id number] [facility] COVID-19 (PFIZER), MRNA, LNP-S, PF, 30 MCG/0.3 ML DOSE 1 2020 208 complet ed Lot#: [id number] [facility] INFLUENZA, UNSPECIFIED FORMULATION 2019 88 complet ed [facility] INFLUENZA, SEASONAL, INJECTABLE 2018 141 complet ed [facility] INFLUENZA, SEASONAL, INJECTABLE 2016 141 complet ed [facility] FLU,3 YRS (HISTORICAL) 2015 88 complet ed [facility] FLU,3 YRS (HISTORICAL) 2014 88 complet ed cvs [facility] FLU,3 YRS (HISTORICAL) 2014 88 complet ed [facility] FLU,3 YRS (HISTORICAL) 2013 88 complet ed cvs [facility] FLU,3 YRS (HISTORICAL) 2012 88 complet ed [facility] ZOSTER LIVE 2012 121 complet ed [facility] DTAP, UNSPECIFIED FORMULATION 2012 107 complet ed Site: Right Deltoid [facility] FLU,3 YRS (HISTORICAL) 2011 88 complet ed Site: Right Deltoid [facility] FLU,3 YRS (HISTORICAL) 2010 88 complet ed Site: Right Deltoid [facility] FLU,3 YRS (HISTORICAL) 2009 88 complet ed Site: Right Deltoid [facility] FLU,3 YRS (HISTORICAL) 2008 88 complet ed [facility] FLU,3 YRS (HISTORICAL) 2008 88 complet ed [facility] NOVEL INFLUENZA-H1N 1-09, ALL FORMULATIONS 2008 128 complet ed [facility] TD(ADULT) UNSPECIFIED FORMULATION 2006 139 complet ed [facility] Results Combined list of recent chemistry, hematology and other laboratory results from Department of Defense and Veterans Affairs, ranging from 15 months to all on record, depending upon the facility. Order Name Results Value Reference Range Date Interpretation Specimen Comments Source BASIC METABOLI C PANEL (fasting ) UREA NITROGEN [MASS/VOLU ME] IN SERUM OR PLASMA 14 mg/dL 7 - 25 02/07 Specimen Type: SERUM No comment entered. Ordering Provider: LATRICIA WOOD Report Released Date/Time: February 06, 2024 07:32 PM Reporting Lab: [facility] [place] [facility] [address] [facility] [address] Performing Lab: [facility] [address] [facility] [address] [facility] BASIC METABOLI C PANEL (fasting ) GLUCOSE [MASS/VOLU ME] IN SERUM OR PLASMA 126 mg/dL 65 - 100 02/07 H Specimen Type: SERUM No comment entered. Ordering Provider: LATRICIA WOOD Report Released Date/Time: February 06, 2024 07:32 PM Reporting Lab: [facility] [address] [facility] [address] Performing Lab: [facility]ITALUSE[facility] [address] [facility] [address] [facility]ITALUSE [facility] BASIC METABOLI C PANEL (fasting ) SODIUM [MOLES/VOL UME] IN SERUM OR PLASMA 140 mmol/L 135 - 145 02/07 Specimen Type: SERUM No comment entered. Ordering Provider: LATRICIA WOOD Report Released Date/Time: February 06, 2024 07:32 PM Reporting Lab: [facility]OSPITALUSE[address] [address] Performing Lab: [facility]TR[facility]ITALUSE[address] [address] [facility]ITALUSE [facility] BASIC METABOLI C PANEL (fasting ) POTASSIUM [MOLES/VOL UME] IN SERUM OR PLASMA 4.9 mmol/L 3.5 - 5.0 02/07 Specimen Type: SERUM No comment entered. Ordering Provider: LATRICIA WOOD Report Released Date/Time: February 06, 2024 07:32 PM Reporting Lab: [facility]ITALUSE[address] [address] Performing Lab: [facility]N [facility]ITALUSETS [address] [address] [facility]ITALUSE [facility] BASIC METABOLI C PANEL (fasting ) CHLORIDE [MOLES/VOL UME] IN SERUM OR PLASMA 105 mmol/L 100 - 110 02/07 Specimen Type: SERUM No comment entered. Ordering Provider: LATRICIA WOOD Report Released Date/Time: February 06, 2024 07:32 PM Reporting Lab: [facility]TRN [facility]ITALUSE[address] [address] Performing Lab: [facility]N [facility]ITALUSE[address] [address] [facility] BASIC METABOLI C PANEL (fasting ) CARBON DIOXIDE, TOTAL [MOLES/VOL UME] IN SERUM OR PLASMA 25 meq/L 20 - 30 02/07 Specimen Type: SERUM No comment entered. Ordering Provider: LATRICIA WOOD Report Released Date/Time: February 06, 2024 07:32 PM Reporting Lab: [facility]RDCH [facility]ERN [address] [address] Performing Lab: [facility]RL [facility] [address] [address] [facility] BASIC METABOLI C PANEL (fasting ) CREATININE [MASS/VOLU ME] IN SERUM OR PLASMA 1.10 mg/dL 0.50 - 1.40 02/07 Specimen Type: SERUM No comment entered. Ordering Provider: LATRICIA WOOD Report Released Date/Time: February 06, 2024 07:32 PM Reporting Lab: [facility]ERN [address] [address] Performing Lab: [facility]ERN [address] [address] [facility] BASIC METABOLI C PANEL (fasting ) GLOMERULAR FILTRATION RATE/1.73 SQ M.PREDICTE D [VOLUME RATE/AREA] IN SERUM, PLASMA OR BLOOD BY CREATININE -BASED FORMULA (CKD-EPI 2020) 70 mL/min 60 02/07 Specimen Type: SERUM No comment entered. Ordering Provider: LATRICIA WOOD Report Released Date/Time: February 06, 2024 07:32 PM Reporting Lab: [facility]ERN [address] [address] Performing Lab: [facility] [address] [address] [facility] CBC AND DIFF (AUTO) LEUKOCYTES [#/VOLUME] IN BLOOD BY AUTOMATED COUNT 6.68 10*3/uL 4.50 - 11.00 02/07 Specimen Type: BLOOD No comment entered. Ordering Provider: LATRICIA WOOD Report Released Date/Time: February 06, 2024 07:32 PM Reporting Lab: [facility] [address] [facility] [address] Performing Lab: [facility] [address] [facility] [address] [facility] CBC AND DIFF (AUTO) ERYTHROCYT ES [#/VOLUME] IN BLOOD BY AUTOMATED COUNT 4.23 10*6/uL 4.23 - 5.66 02/07 Specimen Type: BLOOD No comment entered. Ordering Provider: LATRICIA WOOD Report Released Date/Time: February 06, 2024 07:32 PM Reporting Lab: [facility] [address] [facility] [address] Performing Lab: [facility] [place] [facility] [address] [facility] [address] [facility] CBC AND DIFF (AUTO) HEMOGLOBIN [MASS/VOLU ME] IN BLOOD 13.7 g/dL 12.8 - 17 02/07 Specimen Type: BLOOD No comment entered. Ordering Provider: LATRICIA WOOD Report Released Date/Time: February 06, 2024 07:32 PM Reporting Lab: [facility] [address] [facility] [address] Performing Lab: [facility] [place] [facility] [address] [facility] [address] [facility] CBC AND DIFF (AUTO) HEMATOCRIT [VOLUME FRACTION] OF BLOOD BY AUTOMATED COUNT 40.4 39.2 - 50.4 02/07 Specimen Type: BLOOD No comment entered. Ordering Provider: LATRICIA WOOD Report Released Date/Time: February 06, 2024 07:32 PM Reporting Lab: [facility] [address] [facility] [address] Performing Lab: [facility] [address] [facility] [address] [facility] CBC AND DIFF (AUTO) MCV [ENTITIC VOLUME] BY AUTOMATED COUNT 95.5 fL 82 - 99 02/07 Specimen Type: BLOOD No comment entered. Ordering Provider: LATRICIA WOOD Report Released Date/Time: February 06, 2024 07:32 PM Reporting Lab: [facility] [place] [facility] [address] [facility] [address] Performing Lab: [facility] [place] [facility] [address] [facility] [address] [facility] CBC AND DIFF (AUTO) MCHC [MASS/VOLU ME] BY AUTOMATED COUNT 33.9 g/dL 30.8 - 35.1 02/07 Specimen Type: BLOOD No comment entered. Ordering Provider: LATRICIA WOOD Report Released Date/Time: February 06, 2024 07:32 PM Reporting Lab: [facility] [place] [facility] [address] [facility] [address] Performing Lab: [facility] [place] [facility] [address] [facility] [address] [facility] [place] CBC AND DIFF (AUTO) PLATELETS [#/VOLUME] IN BLOOD BY AUTOMATED COUNT 196 10*3/uL 140 - 360 02/07 Specimen Type: BLOOD No comment entered. Ordering Provider: LATRICIA WOOD Report Released Date/Time: February 06, 2024 07:32 PM Reporting Lab: [facility] [place] [facility] [address] [facility] [address] Performing Lab: [facility] [place] [facility] [address] [facility] [address] [facility] CBC AND DIFF (AUTO) ERYTHROCYT E DISTRIBUTI ON WIDTH [RATIO] BY AUTOMATED COUNT 12.6 12.0 - 16.0 02/07 Specimen Type: BLOOD No comment entered. Ordering Provider: LATRICIA WOOD Report Released Date/Time: February 06, 2024 07:32 PM Reporting Lab: [facility] [place] [facility] [address] [facility] [address] Performing Lab: [facility] [place] [facility] [address] [facility] [address] [facility] CBC AND DIFF (AUTO) MONOCYTES [#/VOLUME] IN BLOOD BY AUTOMATED COUNT 0.73 10*3/uL 0.30 - 1.10 02/07 Specimen Type: BLOOD No comment entered. Ordering Provider: LATRICIA WOOD Report Released Date/Time: February 06, 2024 07:32 PM Reporting Lab: [facility] [place] [facility] [address] [facility] [address] Performing Lab: [facility] [place] [facility] [address] [facility] [address] [facility] CBC AND DIFF (AUTO) MCH [ENTITIC MASS] BY AUTOMATED COUNT 32.4 pg 26.2 - 32.6 02/07 Specimen Type: BLOOD No comment entered. Ordering Provider: LATRICIA WOOD Report Released Date/Time: February 06, 2024 07:32 PM Reporting Lab: [facility] [place] [address] [address] Performing Lab: [facility] [place] [facility] [address] [facility] [address] [facility] [place] [facility] CBC AND DIFF (AUTO) NEUTROPHIL S/100 LEUKOCYTES IN BLOOD BY AUTOMATED COUNT 68.4 43.7 - 75.8 02/07 Specimen Type: BLOOD No comment entered. Ordering Provider: LATRICIA WOOD Report Released Date/Time: February 06, 2024 07:32 PM Reporting Lab: [facility] [place] [facility] [address] [facility] [address] Performing Lab: [facility] [place] [facility] [address] [facility] [address] [facility] CBC AND DIFF (AUTO) LYMPHOCYTE S/100 LEUKOCYTES IN BLOOD BY AUTOMATED COUNT 16.6 14.0 - 42.3 02/07 Specimen Type: BLOOD No comment entered. Ordering Provider: LATRICIA WOOD Report Released Date/Time: February 06, 2024 07:32 PM Reporting Lab: [facility] [place] [address] [address] Performing Lab: [facility] [place] [facility] [address] [facility] [address] [facility] CBC AND DIFF (AUTO) MONOCYTES/ 100 LEUKOCYTES IN BLOOD BY AUTOMATED COUNT 10.9 5.1 - 13.7 02/07 Specimen Type: BLOOD No comment entered. Ordering Provider: LATRICIA WOOD Report Released Date/Time: February 06, 2024 07:32 PM Reporting Lab: [facility] [place] [facility] [address] [facility] [address] Performing Lab: [facility] [place] [facility] [address] [facility] [address] [facility] [place] [facility] CBC AND DIFF (AUTO) EOSINOPHIL S/100 LEUKOCYTES IN BLOOD BY AUTOMATED COUNT 3.1 0.4 - 6.8 02/07 Specimen Type: BLOOD No comment entered. Ordering Provider: LATRICIA WOOD Report Released Date/Time: February 06, 2024 07:32 PM Reporting Lab: [facility] [place] [facility] [address] [facility] [address] Performing Lab: [facility] [place] [facility] [address] [facility] [address] [facility] [place] [facility] CBC AND DIFF (AUTO) BASOPHILS/ 100 LEUKOCYTES IN BLOOD BY AUTOMATED COUNT 0.7 0.1 - 2.0 02/07 Specimen Type: BLOOD No comment entered. Ordering Provider: LATRICIA WOOD Report Released Date/Time: February 06, 2024 07:32 PM Reporting Lab: [facility] [place] [facility] [address] [facility] [address] Performing Lab: [facility] [place] [address] [address] [facility] [place] [facility] CBC AND DIFF (AUTO) NEUTROPHIL S [#/VOLUME] IN BLOOD BY AUTOMATED COUNT 4.56 10*3/uL 2.20 - 7.60 02/07 Specimen Type: BLOOD No comment entered. Ordering Provider: LATRICIA WOOD Report Released Date/Time: February 06, 2024 07:32 PM Reporting Lab: [facility] [place] [facility] [address] [facility] [address] Performing Lab: [facility] [place] [facility] [address] [facility] [address] [facility] CBC AND DIFF (AUTO) LYMPHOCYTE S [#/VOLUME] IN BLOOD BY AUTOMATED COUNT 1.11 10*3/uL 1.00 - 3.20 02/07 Specimen Type: BLOOD No comment entered. Ordering Provider: LATRICIA WOOD Report Released Date/Time: February 06, 2024 07:32 PM Reporting Lab: [facility] [place] [facility] [address] [facility] [address] Performing Lab: [facility] [place] [address] [address] [facility] [place] [facility] CBC AND DIFF (AUTO) EOSINOPHIL S [#/VOLUME] IN BLOOD BY AUTOMATED COUNT 0.21 10*3/uL 0.03 - 0.44 02/07 Specimen Type: BLOOD No comment entered. Ordering Provider: LATRICIA WOOD Report Released Date/Time: February 06, 2024 07:32 PM Reporting Lab: [facility] [place] [address] [address] Performing Lab: [facility] [place] [facility] [address] [facility] [address] [facility] [place] [facility] CBC AND DIFF (AUTO) BASOPHILS [#/VOLUME] IN BLOOD BY AUTOMATED COUNT 0.05 10*3/uL 0.01 - 0.13 02/07 Specimen Type: BLOOD No comment entered. Ordering Provider: LATRICIA WOOD Report Released Date/Time: February 06, 2024 07:32 PM Reporting Lab: [facility] [place] [facility] [address] [facility] [address] Performing Lab: [facility] [place] [address] [address] [facility] [place] [facility] CBC AND DIFF (AUTO) IMMATURE GRANULOCYT ES/100 LEUKOCYTES IN BLOOD BY AUTOMATED COUNT 0.3 0.0 - 0.7 02/07 Specimen Type: BLOOD No comment entered. Ordering Provider: LATRICIA WOOD Report Released Date/Time: February 06, 2024 07:32 PM Reporting Lab: [facility] [place] [facility] [address] [facility] [address] Performing Lab: [facility] [place] [facility] [address] [facility] [address] [facility] [place] [facility] CBC AND DIFF (AUTO) IMMATURE GRANULOCYT ES [#/VOLUME] IN BLOOD 0.02 10*3/uL 0.00 - 0.06 02/07 Specimen Type: BLOOD No comment entered. Ordering Provider: LATRICIA WOOD Report Released Date/Time: February 06, 2024 07:32 PM Reporting Lab: [facility] [place] [facility] [address] [facility] [address] Performing Lab: [facility] [place] [facility] [address] [facility] [address] [facility] [place] [facility] LIVER FUNCTION PROTEIN [MASS/VOLU ME] IN SERUM OR PLASMA 6.0 g/dL 6.0 - 8.3 02/07 Specimen Type: SERUM No comment entered. Ordering Provider: LATRICIA WOOD Report Released Date/Time: February 06, 2024 07:32 PM Reporting Lab: [facility] [place] [facility] [address] [facility] [address] Performing Lab: [facility] [place] [facility] [address] [facility] [address] [facility] [place] [facility] LIVER FUNCTION ALBUMIN [MASS/VOLU ME] IN SERUM OR PLASMA 3.7 g/dL 3.5 - 5.0 02/07 Specimen Type: SERUM No comment entered. Ordering Provider: LATRICIA WOOD Report Released Date/Time: February 06, 2024 07:32 PM Reporting Lab: [facility] [place] [facility] [address] [facility] [address] Performing Lab: [facility] [place] [facility] [address] [facility] [address] [facility] [place] [facility] LIVER FUNCTION ALKALINE PHOSPHATAS E [ENZYMATIC ACTIVITY/V OLUME] IN SERUM OR PLASMA 41 U/L 40 - 150 02/07 Specimen Type: SERUM No comment entered. Ordering Provider: LATRICIA WOOD Report Released Date/Time: February 06, 2024 07:32 PM Reporting Lab: [facility] [place] [facility] [address] [facility] [address] Performing Lab: [facility] [place] [facility] [address] [facility] [address] [facility] LIVER FUNCTION ASPARTATE AMINOTRANS FERASE [ENZYMATIC ACTIVITY/V OLUME] IN SERUM OR PLASMA 18 U/L 5 - 34 02/07 Specimen Type: SERUM No comment entered. Ordering Provider: LATRICIA WOOD Report Released Date/Time: February 06, 2024 07:32 PM Reporting Lab: [facility] [place] [address] [address] Performing Lab: [facility] [place] [address] [address] [facility] [place] [facility] LIVER FUNCTION ALANINE AMINOTRANS FERASE [ENZYMATIC ACTIVITY/V OLUME] IN SERUM OR PLASMA 21 U/L 02/07 Specimen Type: SERUM No comment entered. Ordering Provider: LATRICIA WOOD Report Released Date/Time: February 06, 2024 07:32 PM Reporting Lab: [facility] [place] [address] [address] Performing Lab: [facility] [place] [address] [address] [facility] [place] [facility] LIVER FUNCTION BILIRUBIN. TOTAL [MASS/VOLU ME] IN SERUM OR PLASMA 0.8 mg/dL 0.2 - 1.2 02/07 Specimen Type: SERUM No comment entered. Ordering Provider: LATRICIA WOOD Report Released Date/Time: February 06, 2024 07:32 PM Reporting Lab: [facility] [place] [address] [address] Performing Lab: [facility] [place] [address] [address] [facility] [place] [facility] TSH THYROTROPI N [UNITS/VOL UME] IN SERUM OR PLASMA 1.39 u[IU]/mL 0.35 - 5.00 02/07 Specimen Type: SERUM No comment entered. Ordering Provider: LATRICIA WOOD Report Released Date/Time: February 06, 2024 07:32 PM Reporting Lab: [place] [facility] [place] [facility] [address] [facility] [address] Performing Lab: [place] [facility] [place] [facility] [address] [facility] [address] [facility] [place] [facility] LIPID PANEL FASTING CHOLESTERO L [MASS/VOLU ME] IN SERUM OR PLASMA 162 mg/dL 02/07 Specimen Type: SERUM No comment entered. Ordering Provider: LATRICIA WOOD Report Released Date/Time: February 06, 2024 07:32 PM Reporting Lab: [facility] [place] [facility] [address] [facility] [address] Performing Lab: [facility] [place] [facility] [address] [facility] [address] [facility] [place] [facility] LIPID PANEL FASTING TRIGLYCERI DE [MASS/VOLU ME] IN SERUM OR PLASMA 112 mg/dL 0 - 150 02/07 Specimen Type: SERUM No comment entered. Ordering Provider: LATRICIA WOOD Report Released Date/Time: February 06, 2024 07:32 PM Reporting Lab: [facility]L [place] [facility] [address] [facility] [address] Performing Lab: [facility] [place] [facility] [address] [facility] [address] PR CN[facility]L [place] [facility] LIPID PANEL FASTING CHOLESTERO L IN LDL [MASS/VOLU ME] IN SERUM OR PLASMA BY CALCULATIO N 98 mg/dL 0 - 129 02/07 Specimen Type: SERUM No comment entered. Ordering Provider: LATRICIA WOOD Report Released Date/Time: February 06, 2024 07:32 PM Reporting Lab: [facility] [place] [facility] [address] [facility] [address] Performing Lab: PR [facility]L [facility] [address] [facility] [address] [facility]N [facility] LIPID PANEL FASTING CHOLESTERO L.TOTAL/CH OLESTEROL IN HDL [MASS RATIO] IN SERUM OR PLASMA 3.9 02/07 Specimen Type: SERUM No comment entered. Ordering Provider: LATRICIA WOOD Report Released Date/Time: February 06, 2024 07:32 PM Reporting Lab: [facility] [address] [facility] [address] Performing Lab: [facility]ITALUSE[facility]EV[facility] [address] [facility] [address] [facility]RDCH [facility]ERN [facility]OSPITALUSE [facility] LIPID PANEL FASTING CHOLESTERO L IN HDL [MASS/VOLU ME] IN SERUM OR PLASMA 42 mg/dL 40 - 60 02/07 Specimen Type: SERUM No comment entered. Ordering Provider: LATRICIA WOOD Report Released Date/Time: February 06, 2024 07:32 PM Reporting Lab: [facility]N [facility] [address] [facility] [address] Performing Lab: [facility]PITALUSEGENEV[facility] [address] [facility] [address] [facility]N [facility]OSPITALUSE [facility] HEMOGLOB IN A1C PANEL HEMOGLOBIN A1C/HEMOGL OBIN.TOTAL IN BLOOD BY HPLC 5.6 4.0 - 5.6 02/07 Specimen Type: BLOOD Comment: Values obtained from A1C measurement s can vary. For atypical A1C assays, a reported value of 7.0 could actually be between 6.72 and 7.28 if measured by a reference method. A reported value of 9.0 could actually be between 8.73 and 9.27. Ref: http://www. ngsp.org/[place] Pdata.asp Ordering Provider: LATRICIA WOOD Report Released Date/Time: February 06, 2024 07:32 PM Reporting Lab: [facility]ANRDCH [facility]ENTERN [facility] [address] [facility] [address] Performing Lab: [facility]ITALN [address] [address] [facility] [place] [facility] URINALYS IS CLEAN CATCH COLOR OF URINE Light-Ye llow 02/07 Specimen Type: URINE Comment: If Glucose = >500 and Ketones are positive, please alert the Physician. Ordering Provider: LATRICIA WOOD Report Released Date/Time: February 06, 2024 07:32 PM Reporting Lab: [facility] [place] [address] [address] Performing Lab: [place] CN[facility]L [place] [facility] [address] [facility] [address] [facility] [place] [facility] URINALYS IS CLEAN CATCH APPEARANCE OF URINE Clear 02/07 Specimen Type: URINE Comment: If Glucose = >500 and Ketones are positive, please alert the Physician. Ordering Provider: LATRICIA WOOD Report Released Date/Time: February 06, 2024 07:32 PM Reporting Lab: [facility]ANRST. [facility]ASTTRN [place] [address] [address] Performing Lab: [facility] [place] [address] [address] [facility]ANRST[facility]INC[facility] EASTTRN [place] [facility] URINALYS IS CLEAN CATCH GLUCOSE [MASS/VOLU ME] IN URINE NEGATIVE mg/dL 02/07 Specimen Type: URINE Comment: If Glucose = >500 and Ketones are positive, please alert the Physician. Ordering Provider: LATRICIA WOOD Report Released Date/Time: February 06, 2024 07:32 PM Reporting Lab: [facility] [place] [address] [address] Performing Lab: PR CN[facility]L [place] [address] [address] [facility] [place] [facility] URINALYS IS CLEAN CATCH KETONES [MASS/VOLU ME] IN URINE BY TEST STRIP NEGATIVE mg/dL 02/07 Specimen Type: URINE Comment: If Glucose = >500 and Ketones are positive, please alert the Physician. Ordering Provider: LATRICIA WOOD Report Released Date/Time: February 06, 2024 07:32 PM Reporting Lab: [place]L [place] [address] [address] Performing Lab: [facility] [place] [facility] [address] [facility] [address] [facility] W[facility] [place] TS [facility] URINALYS IS CLEAN CATCH ERYTHROCYT ES [PRESENCE] IN URINE SEDIMENT BY LIGHT MICROSCOPY NEGATIVE mg/dL 02/07 Specimen Type: URINE Comment: If Glucose = >500 and Ketones are positive, please alert the Physician. Ordering Provider: LATRICIA WOOD Report Released Date/Time: February 06, 2024 07:32 PM Reporting Lab: [facility] [place] [facility] [address] [facility] [address] Performing Lab: [facility]ANRST[facility] EASTTRN [facility]. GEOR[facility] REGIONAL HOSPITALUSETS [facility] [address] [facility] [address] [facility]RST[facility] VINCENT'[facility] EASTTRN [place] TS [facility] URINALYS IS CLEAN CATCH PROTEIN [MASS/VOLU ME] IN URINE BY TEST STRIP NEGATIVE mg/dL 02/07 Specimen Type: URINE Comment: If Glucose = >500 and Ketones are positive, please alert the Physician. Ordering Provider: LATRICIA WOOD Report Released Date/Time: February 06, 2024 07:32 PM Reporting Lab: [facility]ANRST. [facility] EASTTRN [place] [address] [address] Performing Lab: [facility] [place] [facility] [address] [facility] [address] [facility]RL TRN [place] TS [facility] URINALYS IS CLEAN CATCH NITRITE [PRESENCE] IN URINE NEGATIVE mg/dL 02/07 Specimen Type: URINE Comment: If Glucose = >500 and Ketones are positive, please alert the Physician. Ordering Provider: LATRICIA WOOD Report Released Date/Time: February 06, 2024 07:32 PM Reporting Lab: [facility] [place] [address] [address] Performing Lab: [facility] [place] [address] [address] [facility] [place] TS [facility] URINALYS IS CLEAN CATCH BILIRUBIN. TOTAL [PRESENCE] IN URINE NEGATIVE mg/dL 02/07 Specimen Type: URINE Comment: If Glucose = >500 and Ketones are positive, please alert the Physician. Ordering Provider: LATRICIA WOOD Report Released Date/Time: February 06, 2024 07:32 PM Reporting Lab: [facility]RST. [facility] EASTTRN [facility] GE[facility] HOSPITALUSETS [address] [address] Performing Lab: [facility]IGANRDCH [facility]ENTERN [facility] GEOR[facility] HOSPITALUSETS [address] [address] [facility]N [facility] HOSPITALUSE [facility] URINALYS IS CLEAN CATCH SPECIFIC GRAVITY OF URINE BY REFRACTOME TRY 1.018 1.016 - 1.022 02/07 Specimen Type: URINE Comment: If Glucose = >500 and Ketones are positive, please alert the Physician. Ordering Provider: LATRICIA WOOD Report Released Date/Time: February 06, 2024 07:32 PM Reporting Lab: [facility] MICHIGANRDCH [facility]ENTERN [facility] HOSPITALUSE[address] [address] Performing Lab: [facility] MICHIGANRDCH [facility]ENTERN [facility] HOSPITALUSE[address] [address] [facility]N [address] HOSPITALUSE [facility] URINALYS IS CLEAN CATCH PH OF URINE BY TEST STRIP 6.0 5.0 - 9.0 02/07 Specimen Type: URINE Comment: If Glucose = >500 and Ketones are positive, please alert the Physician. Ordering Provider: LATRICIA WOOD Report Released Date/Time: February 06, 2024 07:32 PM Reporting Lab: [facility]ITALN [facility] HOSPITALUSE[address] [address] Performing Lab: [facility]ANRST. [facility] EASTTRN [facility] HOSPITALUSE[address] [address] [facility]RDCH [facility]ERN [facility] HOSPITALUSE [facility] URINALYS IS CLEAN CATCH UROBILINOG EN [MASS/VOLU ME] IN URINE BY TEST STRIP <2.0mg/d L <2.0 - 2.0 02/07 Specimen Type: URINE Comment: If Glucose = >500 and Ketones are positive, please alert the Physician. Ordering Provider: LATRICIA WOOD Report Released Date/Time: February 06, 2024 07:32 PM Reporting Lab: [facility]IGANRDCH [facility]ENTERN [facility] HOSPITALUSE[address] [address] Performing Lab: [facility] [place] [facility] [address] [facility] [address] [facility]L [place] [facility] URINALYS IS CLEAN CATCH LEUKOCYTE ESTERASE [PRESENCE] IN URINE BY TEST STRIP NEGATIVE 02/07 Specimen Type: URINE Comment: If Glucose = >500 and Ketones are positive, please alert the Physician. Ordering Provider: LATRICIA WOOD Report Released Date/Time: February 06, 2024 07:32 PM Reporting Lab: [facility] [place] [facility] [address] [facility] [address] Performing Lab: [place] [facility]L [place] [facility] [address] [facility] [address] [facility] [place] [facility] MICROALB UMIN CREATINI NE RATIO PANEL MICROALBUM IN/CREATIN INE [MASS RATIO] IN URINE 12.9 mg/g 0 - 29.9 02/07 Specimen Type: URINE No comment entered. Ordering Provider: LATRICIA WOOD Report Released Date/Time: February 06, 2024 07:32 PM Reporting Lab: [place] [facility] [place] [facility] [address] [facility] [address] Performing Lab: [place] [facility] [facility] [address] [facility] [address] [facility] [place] [facility] MICROALB UMIN CREATINI NE RATIO PANEL MICROALBUM IN [MASS/VOLU ME] IN URINE 1.4 mg/dL 02/07 Specimen Type: URINE No comment entered. Ordering Provider: LATRICIA WOOD Report Released Date/Time: February 06, 2024 07:32 PM Reporting Lab: [facility] [place] [facility] [address] [facility] [address] Performing Lab: [facility] [place] [facility] [address] [facility] [address] [facility] [place] [facility] MICROALB UMIN CREATINI NE RATIO PANEL CREATININE [MASS/VOLU ME] IN URINE 108.66 mg/dL 02/07 Specimen Type: URINE No comment entered. Ordering Provider: LATRICIA WOOD Report Released Date/Time: February 06, 2024 07:32 PM Reporting Lab: [facility] [place] [facility] [address] [facility] [address] Performing Lab: [facility] [place] [facility] [address] [facility] [address] [facility] [place] [facility] BASIC METABOLI C PANEL (fasting ) UREA NITROGEN [MASS/VOLU ME] IN SERUM OR PLASMA 14 mg/dL 7 - 25 02/05 Specimen Type: SERUM No comment entered. Ordering Provider: LATRICIA WOOD Report Released Date/Time: January 28, 2023 04:30 PM Reporting Lab: [place] [facility] [place] [facility] [address] [facility] [address] Performing Lab: [place] [facility] [place] [facility] [address] [facility] [address] PR CN[facility]L [place] [facility] BASIC METABOLI C PANEL (fasting ) GLUCOSE [MASS/VOLU ME] IN SERUM OR PLASMA 143 mg/dL 65 - 100 02/05 H Specimen Type: SERUM No comment entered. Ordering Provider: LATRICIA WOOD Report Released Date/Time: January 28, 2023 04:30 PM Reporting Lab: [place] [place] [facility] [address] [facility] [address] Performing Lab: [facility] [place] [facility] [address] [facility] [address] PR CN[facility]L [place] [facility] BASIC METABOLI C PANEL (fasting ) SODIUM [MOLES/VOL UME] IN SERUM OR PLASMA 141 mmol/L 135 - 145 02/05 Specimen Type: SERUM No comment entered. Ordering Provider: LATRICIA WOOD Report Released Date/Time: January 28, 2023 04:30 PM Reporting Lab: [facility] [place] [facility] [address] [facility] [address] Performing Lab: [facility] [place] [facility] [address] [facility] [address] [facility] [place] [facility] BASIC METABOLI C PANEL (fasting ) POTASSIUM [MOLES/VOL UME] IN SERUM OR PLASMA 4.9 mmol/L 3.5 - 5.0 02/05 Specimen Type: SERUM No comment entered. Ordering Provider: LATRICIA WOOD Report Released Date/Time: January 28, 2023 04:30 PM Reporting Lab: [place] [place] [facility] [address] [facility] [address] Performing Lab: PR CNTRL WSTRN [facility]OSPITALUSETS [address] [address] [facility]RL [facility] [place] [facility] BASIC METABOLI C PANEL (fasting ) CHLORIDE [MOLES/VOL UME] IN SERUM OR PLASMA 105 mmol/L 100 - 110 02/05 Specimen Type: SERUM No comment entered. Ordering Provider: LATRICIA WOOD Report Released Date/Time: January 28, 2023 04:30 PM Reporting Lab: [facility]ITALUSETS [address] [address] Performing Lab: [facility] CN[facility]ITALUSETS [address] [address] [facility]ANRL WSTRN [facility]CHIAT[facility] HOSPITALCHUSE [facility] BASIC METABOLI C PANEL (fasting ) CARBON DIOXIDE, TOTAL [MOLES/VOL UME] IN SERUM OR PLASMA 28 meq/L 20 - 30 02/05 Specimen Type: SERUM No comment entered. Ordering Provider: LATRICIA WOOD Report Released Date/Time: January 28, 2023 04:30 PM Reporting Lab: [facility]ITALUSETS [address] [address] Performing Lab: PR CN[facility]ITALUSETS [address] [address] [facility]RL [facility] [place] [facility] BASIC METABOLI C PANEL (fasting ) CREATININE [MASS/VOLU ME] IN SERUM OR PLASMA 0.85 mg/dL 0.50 - 1.40 02/05 Specimen Type: SERUM No comment entered. Ordering Provider: LATRICIA WOOD Report Released Date/Time: January 28, 2023 04:30 PM Reporting Lab: [facility]ITALUSETS [address] [address] Performing Lab: PR CNTRL WSTRN [facility]ITALUSETS [address] [address] [facility]ANRST. [facility]INCENT'[facility] EASTTRN [place] [facility] BASIC METABOLI C PANEL (fasting ) GLOMERULAR FILTRATION RATE/1.73 SQ M.PREDICTE D [VOLUME RATE/AREA] IN SERUM, PLASMA OR BLOOD BY CREATININE -BASED FORMULA (CKD-EPI) >90mL/mi n 02/05 Specimen Type: SERUM No comment entered. Ordering Provider: LATRICIA WOOD Report Released Date/Time: January 28, 2023 04:30 PM Reporting Lab: [facility]RL [place] [address] [address] Performing Lab: [facility]RL [place] [facility] [address] [facility] [address] [facility] MICHIGANRDCH [facility] CENTERN [place] [facility] CBC AND DIFF (AUTO) LEUKOCYTES [#/VOLUME] IN BLOOD BY AUTOMATED COUNT 6.48 10*3/uL 4.50 - 11.00 02/05 Specimen Type: BLOOD No comment entered. Ordering Provider: LATRICIA WOOD Report Released Date/Time: January 28, 2023 04:30 PM Reporting Lab: [facility]ANRL [place] [facility] [address] [facility] [address] Performing Lab: [place] CN[place]L [place] [facility] [address] [facility] [address] [facility]ITALN [place] [facility] CBC AND DIFF (AUTO) ERYTHROCYT ES [#/VOLUME] IN BLOOD BY AUTOMATED COUNT 4.56 10*6/uL 4.23 - 5.66 02/05 Specimen Type: BLOOD No comment entered. Ordering Provider: LATRICIA WOOD Report Released Date/Time: January 28, 2023 04:30 PM Reporting Lab: [facility]ANRL TRN [place] [facility] [address] [facility] [address] Performing Lab: [facility]ANRST. VINCENT'[facility] EASTTRN [place] [address] [address] [facility]IGANRDCH [facility]ENTERN [facility]YCHIATR[facility] HOSPITALCHUSE [facility] CBC AND DIFF (AUTO) HEMOGLOBIN [MASS/VOLU ME] IN BLOOD 14.8 g/dL 12.8 - 17 02/05 Specimen Type: BLOOD No comment entered. Ordering Provider: LATRICIA WOOD Report Released Date/Time: January 28, 2023 04:30 PM Reporting Lab: [facility] [place] [facility] [address] [facility] [address] Performing Lab: [facility] [place] [facility] [address] [facility] [address] [facility]L [place] [facility] CBC AND DIFF (AUTO) HEMATOCRIT [VOLUME FRACTION] OF BLOOD BY AUTOMATED COUNT 43.9 39.2 - 50.4 02/05 Specimen Type: BLOOD No comment entered. Ordering Provider: LATRICIA WOOD Report Released Date/Time: January 28, 2023 04:30 PM Reporting Lab: [place] [facility] [place] [facility] [address] [facility] [address] Performing Lab: [facility] [place] [facility] [address] [facility] [address] PR CN[facility]L [place]N [place] [facility] CBC AND DIFF (AUTO) MCV [ENTITIC VOLUME] BY AUTOMATED COUNT 96.3 fL 82 - 99 02/05 Specimen Type: BLOOD No comment entered. Ordering Provider: LATRICIA WOOD Report Released Date/Time: January 28, 2023 04:30 PM Reporting Lab: [facility] [place] [facility] [address] [facility] [address] Performing Lab: [place] [place] [facility] [address] [facility] [address] [facility] [place] [facility] CBC AND DIFF (AUTO) MCHC [MASS/VOLU ME] BY AUTOMATED COUNT 33.7 g/dL 30.8 - 35.1 02/05 Specimen Type: BLOOD No comment entered. Ordering Provider: LATRICIA WOOD Report Released Date/Time: January 28, 2023 04:30 PM Reporting Lab: [place] [facility] [address] [facility] [address] Performing Lab: [place] [facility] [place] [facility] [address] [facility] [address] PR CNTRL [place]N [place] [facility] CBC AND DIFF (AUTO) PLATELETS [#/VOLUME] IN BLOOD BY AUTOMATED COUNT 190 10*3/uL 140 - 360 05/26 /2023 Specimen Type: BLOOD No comment entered. Ordering Provider: LATRICIA WOOD Report Released Date/Time: January 28, 2023 04:30 PM Reporting Lab: [facility] [place] [facility] [address] [facility] [address] Performing Lab: [facility] [place] [facility] [address] [facility] [address] [facility] [place] [facility] CBC AND DIFF (AUTO) ERYTHROCYT E DISTRIBUTI ON WIDTH [RATIO] BY AUTOMATED COUNT 12.6 12.0 - 16.0 02/05 Specimen Type: BLOOD No comment entered. Ordering Provider: LATRICIA WOOD Report Released Date/Time: January 28, 2023 04:30 PM Reporting Lab: [place] [facility] [address] [facility] [address] Performing Lab: [facility] [place] [facility] [address] [facility] [address] [facility]L [place] [facility] CBC AND DIFF (AUTO) MONOCYTES [#/VOLUME] IN BLOOD BY AUTOMATED COUNT 0.67 10*3/uL 0.30 - 1.10 02/05 Specimen Type: BLOOD No comment entered. Ordering Provider: LATRICIA WOOD Report Released Date/Time: January 28, 2023 04:30 PM Reporting Lab: [facility] [place] [facility] [address] [facility] [address] Performing Lab: [facility] [place] [facility] [address] [facility] [address] [facility] [place] [facility] CBC AND DIFF (AUTO) MCH [ENTITIC MASS] BY AUTOMATED COUNT 32.5 pg 26.2 - 32.6 02/05 Specimen Type: BLOOD No comment entered. Ordering Provider: LATRICIA WOOD Report Released Date/Time: January 28, 2023 04:30 PM Reporting Lab: [facility] [place] [facility] [address] [facility] [address] Performing Lab[facility] [place] [facility] [address] [facility] [address] [facility] [place] [facility] CBC AND DIFF (AUTO) NEUTROPHIL S/100 LEUKOCYTES IN BLOOD BY AUTOMATED COUNT 67.3 43.7 - 75.8 02/05 Specimen Type: BLOOD No comment entered. Ordering Provider: LATRICIA WOOD Report Released Date/Time: January 28, 2023 04:30 PM Reporting Lab: [facility] [place] [facility] [address] [facility] [address] Performing Lab: [facility] [place] [facility] [address] [facility] [address] [facility] [place] CBC AND DIFF (AUTO) LYMPHOCYTE S/100 LEUKOCYTES IN BLOOD BY AUTOMATED COUNT 18.7 14.0 - 42.3 02/05 Specimen Type: BLOOD No comment entered. Ordering Provider: LATRICIA WOOD Report Released Date/Time: January 28, 2023 04:30 PM Reporting Lab: [facility] [place] [address] [address] Performing Lab: [facility] [place] [facility] [address] [facility] [address] [facility] [place] [facility] CBC AND DIFF (AUTO) MONOCYTES/ 100 LEUKOCYTES IN BLOOD BY AUTOMATED COUNT 10.3 5.1 - 13.7 02/05 Specimen Type: BLOOD No comment entered. Ordering Provider: LATRICIA WOOD Report Released Date/Time: January 28, 2023 04:30 PM Reporting Lab: [facility] [place] [facility] [address] [facility] [address] Performing Lab: [facility] [place] [facility] [address] [facility] [address] [facility] [place] [facility] CBC AND DIFF (AUTO) EOSINOPHIL S/100 LEUKOCYTES IN BLOOD BY AUTOMATED COUNT 2.3 0.4 - 6.8 02/05 Specimen Type: BLOOD No comment entered. Ordering Provider: LATRICIA WOOD Report Released Date/Time: January 28, 2023 04:30 PM Reporting Lab: [facility] [address] [facility] [address] Performing Lab: [facility] [address] [facility] [address] [facility] CBC AND DIFF (AUTO) BASOPHILS/ 100 LEUKOCYTES IN BLOOD BY AUTOMATED COUNT 0.9 0.1 - 2.0 02/05 Specimen Type: BLOOD No comment entered. Ordering Provider: LATRICIA WOOD Report Released Date/Time: January 28, 2023 04:30 PM Reporting Lab: [facility] [address] [address] Performing Lab: [facility] [address] [facility] [address] [facility] CBC AND DIFF (AUTO) NEUTROPHIL S [#/VOLUME] IN BLOOD BY AUTOMATED COUNT 4.36 10*3/uL 2.20 - 7.60 02/05 Specimen Type: BLOOD No comment entered. Ordering Provider: LATRICIA WOOD Report Released Date/Time: January 28, 2023 04:30 PM Reporting Lab: [facility] [address] [address] Performing Lab: [facility] [place] [address] [address] [facility] CBC AND DIFF (AUTO) LYMPHOCYTE S [#/VOLUME] IN BLOOD BY AUTOMATED COUNT 1.21 10*3/uL 1.00 - 3.20 02/05 Specimen Type: BLOOD No comment entered. Ordering Provider: LATRICIA WOOD Report Released Date/Time: January 28, 2023 04:30 PM Reporting Lab: [facility] [address] [facility] [address] Performing Lab: [facility] [address] [place] [phone] [facility] CBC AND DIFF (AUTO) EOSINOPHIL S [#/VOLUME] IN BLOOD BY AUTOMATED COUNT 0.15 10*3/uL 0.03 - 0.44 02/05 Specimen Type: BLOOD No comment entered. Ordering Provider: LATRICIA WOOD Report Released Date/Time: January 28, 2023 04:30 PM Reporting Lab: [facility] [address] [facility] [address] Performing Lab: [facility] [place] [facility] [address] [facility] [address] [facility] CBC AND DIFF (AUTO) BASOPHILS [#/VOLUME] IN BLOOD BY AUTOMATED COUNT 0.06 10*3/uL 0.01 - 0.13 02/05 Specimen Type: BLOOD No comment entered. Ordering Provider: LATRICIA WOOD Report Released Date/Time: January 28, 2023 04:30 PM Reporting Lab: [facility] [place] [facility] [address] [facility] [address] Performing Lab: [facility] [place] [facility] [address] [facility] [address] [facility] CBC AND DIFF (AUTO) IMMATURE GRANULOCYT ES/100 LEUKOCYTES IN BLOOD BY AUTOMATED COUNT 0.5 0.0 - 0.7 02/05 Specimen Type: BLOOD No comment entered. Ordering Provider: LATRICIA WOOD Report Released Date/Time: January 28, 2023 04:30 PM Reporting Lab: [facility] [place] [facility] [address] [facility] [address] Performing Lab: [facility] [place] [facility] [address] [facility] [address] [facility] [facility] CBC AND DIFF (AUTO) IMMATURE GRANULOCYT ES [#/VOLUME] IN BLOOD 0.03 10*3/uL 0.00 - 0.06 02/05 Specimen Type: BLOOD No comment entered. Ordering Provider: LATRICIA WOOD Report Released Date/Time: January 28, 2023 04:30 PM Reporting Lab: [facility] [place] [facility] [address] [facility] [address] Performing Lab: [facility] [place] [address] [address] [facility] [facility] Vital Signs Combined list of inpatient and outpatient Vital Signs from Department of Defense and Veterans Affairs, ranging from 12 months to all on record, depending upon the facility. Vital Sign Value Date Comments Source SYSTOLIC BLOOD PRESSURE 127 02/14/20 24 08:02:41 [facility] DIASTOLIC BLOOD PRESSURE 67 024 08:02:41 [facility] PULSE OXIMETRY 94 02/14/2024 08:02:41 [facility] WEIGHT 276 02/14/2024 08:02:41 [facility] BMI 41 kg/m2 02/14/2024 08:02:41 [facility] PAIN 0 02/14/2024 08:02:41 [facility] HEIGHT 69 02/14/2024 08:02:41 [facility] TEMPERATURE 98.2 02/14/2024 08:02:41 [facility] PULSE 60 02/14/2024 08:02:41 [facility] RESPIRATION 20 02/14/2024 08:02:41 [facility] Encounters Combined list of: 1) Encounters from Department of Veterans Affairs facilities going backup to the last 18 months, not all VA inpatient encounters are included; 2) Encounters from the Department of Defense facilities going backup to 280 months. Location Location Details Encounter Type Encounter Number Reason For Visit Attending Provider ADM Date DC Date Status Disposition Source [facility] CPTR OPHTH DX IMG POST SEGMT [id number] Diagnos is: ICD-10- CM H40.013 Open angle with borderl ine finding s, low risk, bilater al HAILEY LOWRY NEETU 12/22 [facility] [place] 1/ [id number] Diagnos is: ICD-10- CM E11.9 Type 2 diabete s mellitu s without complic ations HAILEY LOWRY NEETU 12/22 [facility] FIT SPECTACLES MONOFOCAL [id number] Diagnos is: ICD-10- CM Z46.0 Encount er for fit/adj st of spectac les and contact lenses HAILEY LOWRY 12/22 [facility] OFFICE O/P EST LOW 20 MIN [id number] Diagnos is: ICD-10- CM E11.9 Type 2 diabete s mellitu s without complic ations MARINA WOOD RD 02/13 [facility] Outpatient Encounter [id number] 02/17 [facility] Outpatient Encounter [id number] 02/22 [facility] Social History Combined list of available smoking, tobacco, and other social history from 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 Social History Type Response Date Comment Source Tobacco smoking status [facility]UST VA-TOBACCO FORMER USER 02/14/2024 [facility] History of tobacco use PR-TOBACCO QUIT 15 YRS OR MORE 02/14/2024 [facility] History of tobacco use VA-TOBACCO FORMER USER 02/12/2023 [facility] History of tobacco use VA-TOBACCO FORMER USER 02/13/2022 [facility] History of tobacco use VA-TOBACCO FORMER USER 02/11/2021 [facility] History of tobacco use PR-TOBACCO QUIT 15 YRS OR MORE 12/22/2019 [facility] History of tobacco use VA-TOBACCO NEVER USED 02/17/2018 [facility] History of tobacco use LIFETIME NON-TOBACCO USER 02/17/2018 [facility] History of tobacco use QUIT TOBACCO USE > 7 YEARS AGO 03/02/2016 PT STATES HE STOPEED 20 YRS AGO. [facility] History of tobacco use QUIT TOBACCO USE > 7 YEARS AGO 04/18/2010 [facility] Plan of Care List of future care activities from [facility] facilities. Additional future care activities may be listed in the Assessment and Plan section. Date/Time Care Activity Care Activity Detail Facili ty 01/16/2025 AMBULATORY - MEDICINE AMBULATORY - MEDICI NE [facility] 02/15/2025 AMBULATORY - MEDICINE AMBULATORY - MEDICI NE [facility] Advance Directives List of completed, amended, or rescinded Advance Directives on record at [facility] facilities. An actual copy of the Directive is not included. Date Advance Directive Provider Source 02/18/2024 ADVANCE DIRECTIVE ALECIA WOOD [facility]
== END 2024-11-08 11:06 | disposition home or self-care (01) ==
PROVIDERS: PCP Internal Medicine; Visit Provider Physician Assistant
DX: H93.90 Unspecified disorder of ear, unspecified ear (principal)

== ENCOUNTER → 2024-11-08 10:11 | Outpatient (BNVA) | payer MEDICARE, SELFPAY | PROVIDERS: PCP Internal Medicine | DX: H93.92 Unspecified disorder of left ear (principal) | CPT/HCPCS: 99212 ==

== ENCOUNTER 2024-11-15 07:56 | Outpatient (AMB) | payer MEDICARE, SELFPAY ==
--- OUTSIDE RECORDS SUMMARY | 2024-11-15 08:04 | XMS_ITS | Patient Health Record ---
Author Organization [facility] Address [address] [place] [phone] Care Team Providers Care Airline Stewardess Name Role Phone Daniel Romano MD Primary Care Provider Mac Rose [phone] Allergies Allergen (clinical drug ingredient) Drug/Non Drug Allergy documented on EMR Reaction Allergy Type Onset Date Status Lamisil Unknown Drug Allergy Active Reason For Referral No Information Medications Medication SIG (Take, Route, Frequency, Duration) [...] meal Orally Three times a day Active Immunizations Vaccine Route Administration Date Status Comme nts Flu vaccine no Preserv 3 and > Unknown 05/25/2017 Admin istered Social History Tobacco Use: Social History Observation Description Date Details (start date - stop date) Former Smoker NA - NA Tobacco Use/Smoking Question Answer Notes Patient is [...] Never (0 point) Points 1 Interpretation Negative Section Notes: Nonsmoker > 20 years; no sig alcohol Problems Problem Type SNOMED Code ICD Code Onset Dates Problem Status W/U Status Risk Notes Problem 484607534 Encounter for screening for malignant neoplasm of colon (Z12.11) Active confirmed Problem 174267031 Aspirin long-term use (Z79.82) Active confirmed Problem 00501806 Hypertension, unspecified type (I10) Active confirmed Encounters Encounter Location Date Provider Diagnosis [facility] [address] [place] [address] 03/14/2024 Mac Garcia Plan Of Treatment Future Test Test Name Order Date COLONOSCOPY 12/30/2017 Insurance Providers Payer Name Payer Address Payer Phone Subscriber Number Group Number Insured Name Patient Relationship to Insured Coverage Start Date Coverage End Date MEDICARE OF [place] [address] [place] [id number] VEE SAL Self - patient is the insured MEDICAID OF [facility] [address] [place] [phone] [id number] VEE SAL Self - patient is the insured Medical (General) History Medical History History ICD Code Denies [place],CVA,renal disease COPD NIDDM Neuropathy in feet Sleep apnea--uses CPAP Negative colonoscopies in 31 12 and 2006 other than diverticulosis and internal hemorrhoids Surgical History Surgery Date(Month/Year) Left knee replacement 2016 Right knee replacement 2014 Right hip replacement 2014 Metal plates due to femur surgery 2016 Pericarditis with pericardectomy in the Rectal fistula Lumbar disc
--- OUTSIDE RECORDS SUMMARY | 2024-11-15 08:04 | XMS_ITS | Continuity of Care Document ---
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 It does not include entries that were removed or entered in error. Problem Status Onset Date Problem Type Date of Resolution Comments Source Hypercholesterolemia Active 019 Condition Feb 14, 2019 Entered By: ALECIA WOOD Comment: treated with medication [facility] Impaired fasting glycaemia (SNOMED [place] 962224625) Active 014 Condition [facility] Tremor Active 010 Condition [facility] Disc Disease Active 009 Condition [facility] Diabetes Mellitus Type 2 ([facility] [id number]) Active Condition [facility] [...] FOR DRY EYE OPHTHA LMIC ACTIVE 12/23/2024 [id number] 4 Rocky LOWRY 2023 15 [facility] [...] Site Reaction Lot Number CVX Code Drug Email Marketing Executive Status Comments Source INFLUENZA, UNSPECIFIED FORMULATION 2021 88 complet ed [facility] COVID-19 (PFIZER), MRNA, LNP-S, PF, 30 MCG/0.3 ML DOSE 3 2020 208 complet ed [facility] COVID-19 (PFIZER), MRNA, LNP-S, PF, 30 MCG/0.3 ML DOSE 2 2020 208 complet ed Lot#: [id number] [facility] COVID-19 (PFIZER), MRNA, LNP-S, PF, 30 MCG/0.3 ML DOSE 1 2020 208 complet ed Lot#: [id number] [facility] INFLUENZA, [...] February 06, 2024 07:32 PM Reporting Lab: [facility] [place] [facility] [address] [facility] [address] Performing Lab: [facility] [address] [facility] [address] [facility] BASIC METABOLI C PANEL (fasting ) GLUCOSE [MASS/VOLU ME] IN SERUM OR PLASMA 126 mg/dL 65 - 100 02/07 H Specimen Type: SERUM No comment entered. Ordering Provider: LATRICIA WOOD Report Released Date/Time: February 06, 2024 07:32 PM Reporting Lab: [facility]RL [facility] [address] [facility] [address] Performing Lab: [facility] HOSPITALRLAKE M[facility] COMM[facility] HOSPITALTRN [facility]ITALUSEGOUVERNEUR [facility] [address] [facility] [address] [facility] WSTR[facility]USE [facility] BASIC METABOLI C PANEL (fasting ) SODIUM [MOLES/VOL UME] IN SERUM OR PLASMA 140 mmol/L 135 - 145 02/07 Specimen Type: SERUM No comment entered. Ordering Provider: LATRICIA WOOD Report Released Date/Time: February 06, 2024 07:32 PM Reporting Lab: [facility] HOSPITALRLAKE MART[facility] COMM[facility] HOSPITALTRN [facility]OSPITALUSE[address] [address] Performing Lab: [facility] HOSPITALRLAKE M[facility] HOSPITALTRN [facility]ITALUSE[address] [address] [facility]ITALRL TRN [facility]ITALUSE [facility] BASIC METABOLI C PANEL (fasting ) POTASSIUM [MOLES/VOL UME] IN SERUM OR PLASMA 4.9 mmol/L 3.5 - 5.0 02/07 Specimen Type: SERUM No comment entered. Ordering Provider: LATRICIA WOOD Report Released Date/Time: February 06, 2024 07:32 PM Reporting Lab: [facility] HOSPITALRLAKE MART[facility] COMMUNITY HOSPITALTRN [facility]OSPITALUSE[address] [address] Performing Lab: [facility] HOSPITALRL WSTRN [facility] HOSPITALUSETS [address] [address] [facility] HOSPITALRL TRN [facility]ITALUSE [facility] BASIC METABOLI C PANEL (fasting ) CHLORIDE [MOLES/VOL UME] IN SERUM OR PLASMA 105 mmol/L 100 - 110 02/07 Specimen Type: SERUM No comment entered. Ordering Provider: LATRICIA WOOD Report Released Date/Time: February 06, 2024 07:32 PM Reporting Lab: [facility] HOSPITALRLAKE MART[facility] COMMUNITY HOSPITALTRN [facility]ITALUSE[address] [address] Performing Lab: [facility] HOSPITALRL TRN [facility]PITALUSE[address] [address] [facility] BASIC METABOLI C PANEL (fasting ) CARBON DIOXIDE, TOTAL [MOLES/VOL UME] IN SERUM OR PLASMA 25 meq/L 20 - 30 02/07 Specimen Type: SERUM No comment entered. Ordering Provider: LATRICIA WOOD Report Released Date/Time: February 06, 2024 07:32 PM Reporting Lab: [facility] HOSPITALRJACKSON MEDICAL CENTERN [address] [address] Performing Lab: [facility] HOSPITALRL [facility]ERN [address] [address] [facility] BASIC METABOLI C PANEL (fasting ) CREATININE [MASS/VOLU ME] IN SERUM OR PLASMA 1.10 mg/dL 0.50 - 1.40 02/07 Specimen Type: SERUM No comment entered. Ordering Provider: LATRICIA WOOD Report Released Date/Time: February 06, 2024 07:32 PM Reporting Lab: [facility]OSPITALRJACKSON MED[facility] CENTERN [address] [address] Performing Lab: [facility]OSPITALRJACKSON MEDICAL CENTERN [address] [address] [facility] BASIC METABOLI C PANEL (fasting ) GLOMERULAR FILTRATION RATE/1.73 SQ M.PREDICTE D [VOLUME RATE/AREA] IN SERUM, PLASMA OR BLOOD BY CREATININE -BASED FORMULA (CKD-EPI 2020) 70 mL/min 60 02/07 Specimen Type: SERUM No comment entered. Ordering Provider: LATRICIA WOOD Report Released Date/Time: February 06, 2024 07:32 PM Reporting Lab: [facility]OSPITALRJACKSON MEDICAL CENTERN [address] [address] Performing Lab: [facility] [address] [address] [facility] CBC AND DIFF (AUTO) LEUKOCYTES [#/VOLUME] IN BLOOD BY AUTOMATED COUNT 6.68 10*3/uL 4.50 - 11.00 02/07 Specimen Type: BLOOD No comment entered. Ordering Provider: LATRICIA WOOD Report Released Date/Time: February 06, 2024 07:32 PM Reporting Lab: [facility] [address] [facility] [address] Performing Lab: [facility] [address] [facility] [address] [facility] CBC AND DIFF (AUTO) ERYTHROCYT ES [#/VOLUME] IN BLOOD BY AUTOMATED COUNT 4.23 10*6/uL 4.23 - 5.66 02/07 Specimen Type: BLOOD No comment entered. Ordering Provider: LATRICIA WOOD Report Released Date/Time: February 06, 2024 07:32 PM Reporting Lab: [facility] [address] [facility] [address] Performing Lab: [facility] [place] [facility] [address] [facility] [address] [facility] CBC AND DIFF (AUTO) HEMOGLOBIN [MASS/VOLU ME] IN BLOOD 13.7 g/dL 12.8 - 17 02/07 Specimen Type: BLOOD No comment entered. Ordering Provider: LATRICIA WOOD Report Released Date/Time: February 06, 2024 07:32 PM Reporting Lab: [facility] [address] [facility] [address] Performing Lab: [facility] [place] [facility] [address] [facility] [address] [facility] CBC AND DIFF (AUTO) HEMATOCRIT [VOLUME FRACTION] OF BLOOD BY AUTOMATED COUNT 40.4 39.2 - 50.4 02/07 Specimen Type: BLOOD No comment entered. Ordering Provider: LATRICIA WOOD Report Released Date/Time: February 06, 2024 07:32 PM Reporting Lab: [facility] [address] [facility] [address] Performing Lab: [facility] [address] [facility] [address] [facility] CBC AND DIFF (AUTO) MCV [ENTITIC VOLUME] BY AUTOMATED COUNT 95.5 fL 82 - 99 02/07 Specimen Type: BLOOD No comment entered. Ordering Provider: LATRICIA WOOD Report Released Date/Time: February 06, 2024 07:32 PM Reporting Lab: [facility] [facility] [address] [facility] [address] Performing Lab: [facility] [place] [facility] [address] [facility] [address] [facility] CBC AND DIFF (AUTO) MCHC [MASS/VOLU ME] BY AUTOMATED COUNT 33.9 g/dL 30.8 - 35.1 02/07 Specimen Type: BLOOD No comment entered. Ordering Provider: LATRICIA WOOD Report Released Date/Time: February 06, 2024 07:32 PM Reporting Lab: [facility] [place] [facility] [address] [facility] [address] Performing Lab: [place] [facility] [place] [place] [facility] [address] [facility] [address] [facility] [place] [facility] CBC AND DIFF (AUTO) PLATELETS [#/VOLUME] IN BLOOD BY AUTOMATED COUNT 196 10*3/uL 140 - 360 02/07 Specimen Type: BLOOD No comment entered. Ordering Provider: LATRICIA WOOD Report Released Date/Time: February 06, 2024 07:32 PM Reporting Lab: [facility] [place] [facility] [address] [facility] [address] Performing Lab: [facility] [place] [facility] [address] [facility] [address] [facility] CBC AND DIFF (AUTO) ERYTHROCYT E DISTRIBUTI ON WIDTH [RATIO] BY AUTOMATED COUNT 12.6 12.0 - 16.0 02/07 Specimen Type: BLOOD No comment entered. Ordering Provider: LATRICIA WOOD Report Released Date/Time: February 06, 2024 07:32 PM Reporting Lab: [facility] [place] [facility] [address] [facility] [address] Performing Lab: [facility] [place] [facility] [address] [facility] [address] [facility] CBC AND DIFF (AUTO) MONOCYTES [#/VOLUME] IN BLOOD BY AUTOMATED COUNT 0.73 10*3/uL 0.30 - 1.10 02/07 Specimen Type: BLOOD No comment entered. Ordering Provider: LATRICIA WOOD Report Released Date/Time: February 06, 2024 07:32 PM Reporting Lab: [place] [facility] [place] [facility] [address] [facility] [address] Performing Lab: [facility] [place] [facility] [address] [facility] [address] [facility] CBC AND DIFF (AUTO) MCH [ENTITIC MASS] BY AUTOMATED COUNT 32.4 pg 26.2 - 32.6 02/07 Specimen Type: BLOOD No comment entered. Ordering Provider: LATRICIA WOOD Report Released Date/Time: February 06, 2024 07:32 PM Reporting Lab: [place] [facility] [place] [address] [address] Performing Lab: [facility] [place] [place] [facility] [address] [facility] [address] [facility] [facility] CBC AND DIFF (AUTO) NEUTROPHIL S/100 LEUKOCYTES IN BLOOD BY AUTOMATED COUNT 68.4 43.7 - 75.8 02/07 Specimen Type: BLOOD No comment entered. Ordering Provider: LATRICIA WOOD Report Released Date/Time: February 06, 2024 07:32 PM Reporting Lab: [place] [facility] [place] [facility] [address] [facility] [address] Performing Lab: [facility] [place] [facility] [address] [facility] [address] [facility] CBC AND DIFF (AUTO) LYMPHOCYTE S/100 LEUKOCYTES IN BLOOD BY AUTOMATED COUNT 16.6 14.0 - 42.3 02/07 Specimen Type: BLOOD No comment entered. Ordering Provider: LATRICIA WOOD Report Released Date/Time: February 06, 2024 07:32 PM Reporting Lab: [place] [facility] [place] [address] [address] Performing Lab: [facility] [place] [facility] [address] [facility] [address] [facility] CBC AND DIFF (AUTO) MONOCYTES/ 100 LEUKOCYTES IN BLOOD BY AUTOMATED COUNT 10.9 5.1 - 13.7 02/07 Specimen Type: BLOOD No comment entered. Ordering Provider: LATRICIA WOOD Report Released Date/Time: February 06, 2024 07:32 PM Reporting Lab: [facility] [place] [facility] [address] [facility] [address] Performing Lab: [facility] [place] [facility] [address] [facility] [address] [facility] [place] [facility] CBC AND DIFF (AUTO) EOSINOPHIL S/100 LEUKOCYTES IN BLOOD BY AUTOMATED COUNT 3.1 0.4 - 6.8 02/07 Specimen Type: BLOOD No comment entered. Ordering Provider: LATRICIA WOOD Report Released Date/Time: February 06, 2024 07:32 PM Reporting Lab: [facility] [place] [facility] [address] [facility] [address] Performing Lab: [facility] [place] [facility] [address] [facility] [address] [facility] [place] CBC AND DIFF (AUTO) BASOPHILS/ 100 LEUKOCYTES IN BLOOD BY AUTOMATED COUNT 0.7 0.1 - 2.0 02/07 Specimen Type: BLOOD No comment entered. Ordering Provider: LATRICIA WOOD Report Released Date/Time: February 06, 2024 07:32 PM Reporting Lab: [facility] [place] [facility] [address] [facility] [address] Performing Lab: [facility] [place] [address] [address] [facility] CBC AND DIFF (AUTO) NEUTROPHIL S [#/VOLUME] IN BLOOD BY AUTOMATED COUNT 4.56 10*3/uL 2.20 - 7.60 02/07 Specimen Type: BLOOD No comment entered. Ordering Provider: LATRICIA WOOD Report Released Date/Time: February 06, 2024 07:32 PM Reporting Lab: [facility] [place] [facility] [address] [facility] [address] Performing Lab: [place] [facility] [place] [facility] [address] [facility] [address] [facility] CBC AND DIFF (AUTO) LYMPHOCYTE S [#/VOLUME] IN BLOOD BY AUTOMATED COUNT 1.11 10*3/uL 1.00 - 3.20 02/07 Specimen Type: BLOOD No comment entered. Ordering Provider: LATRICIA WOOD Report Released Date/Time: February 06, 2024 07:32 PM Reporting Lab: [facility] [place] [facility] [address] [facility] [address] Performing Lab: [place] [facility] [place] [address] [address] [place] [facility] [place] [place] [facility] CBC AND DIFF (AUTO) EOSINOPHIL S [#/VOLUME] IN BLOOD BY AUTOMATED COUNT 0.21 10*3/uL 0.03 - 0.44 02/07 Specimen Type: BLOOD No comment entered. Ordering Provider: LATRICIA WOOD Report Released Date/Time: February 06, 2024 07:32 PM Reporting Lab: [place] [facility] [place] [place] [address] [address] Performing Lab: [facility] [place] [place] [facility] [address] [facility] [address] [facility] [place] [facility] CBC AND DIFF (AUTO) BASOPHILS [#/VOLUME] IN BLOOD BY AUTOMATED COUNT 0.05 10*3/uL 0.01 - 0.13 02/07 Specimen Type: BLOOD No comment entered. Ordering Provider: LATRICIA WOOD Report Released Date/Time: February 06, 2024 07:32 PM Reporting Lab: [facility] [place] [place] [facility] [address] [facility] [address] Performing Lab: [place] [facility] [place] [address] [address] [facility] CBC AND DIFF (AUTO) IMMATURE GRANULOCYT ES/100 LEUKOCYTES IN BLOOD BY AUTOMATED COUNT 0.3 0.0 - 0.7 02/07 Specimen Type: BLOOD No comment entered. Ordering Provider: LATRICIA WOOD Report Released Date/Time: February 06, 2024 07:32 PM Reporting Lab: [facility] [place] [facility] [address] [facility] [address] Performing Lab: [facility] [place] [facility] [address] [facility] [address] [facility] [place] [facility] CBC AND DIFF (AUTO) IMMATURE GRANULOCYT ES [#/VOLUME] IN BLOOD 0.02 10*3/uL 0.00 - 0.06 02/07 Specimen Type: BLOOD No comment entered. Ordering Provider: LATRICIA WOOD Report Released Date/Time: February 06, 2024 07:32 PM Reporting Lab: [facility] [place] [facility] [address] [facility] [address] Performing Lab: [facility] [place] [facility] [address] [facility] [address] [facility] [place] [place] [facility] LIVER FUNCTION PROTEIN [MASS/VOLU ME] IN SERUM OR PLASMA 6.0 g/dL 6.0 - 8.3 02/07 Specimen Type: SERUM No comment entered. Ordering Provider: LATRICIA WOOD Report Released Date/Time: February 06, 2024 07:32 PM Reporting Lab: [facility] [place] [facility] [address] [facility] [address] Performing Lab: [facility] [place] [facility] [address] [facility] [address] [facility] [place] LIVER FUNCTION ALBUMIN [MASS/VOLU ME] IN SERUM OR PLASMA 3.7 g/dL 3.5 - 5.0 02/07 Specimen Type: SERUM No comment entered. Ordering Provider: LATRICIA WOOD Report Released Date/Time: February 06, 2024 07:32 PM Reporting Lab: [facility] [place] [facility] [address] [facility] [address] Performing Lab: [facility] [place] [facility] [address] [facility] [address] [facility] LIVER FUNCTION ALKALINE PHOSPHATAS E [ENZYMATIC ACTIVITY/V OLUME] IN SERUM OR PLASMA 41 U/L 40 - 150 02/07 Specimen Type: SERUM No comment entered. Ordering Provider: LATRICIA WOOD Report Released Date/Time: February 06, 2024 07:32 PM Reporting Lab: [place] [facility] [facility] [address] [facility] [address] Performing Lab: [place] [facility] [address] [facility] [address] [facility]ITALRL [facility] [facility] LIVER FUNCTION ASPARTATE AMINOTRANS FERASE [ENZYMATIC ACTIVITY/V OLUME] IN SERUM OR PLASMA 18 U/L 5 - 34 02/07 Specimen Type: SERUM No comment entered. Ordering Provider: LATRICIA WOOD Report Released Date/Time: February 06, 2024 07:32 PM Reporting Lab: [place] [address] [address] Performing Lab: [place] [facility] [place] [address] [address] [facility] [place] [facility] LIVER FUNCTION ALANINE AMINOTRANS FERASE [ENZYMATIC ACTIVITY/V OLUME] IN SERUM OR PLASMA 21 U/L 02/07 Specimen Type: SERUM No comment entered. Ordering Provider: LATRICIA WOOD Report Released Date/Time: February 06, 2024 07:32 PM Reporting Lab: [place] [facility] [address] [address] Performing Lab: [place] [facility] [place] [address] [address] [facility] [place] [facility] LIVER FUNCTION BILIRUBIN. TOTAL [MASS/VOLU ME] IN SERUM OR PLASMA 0.8 mg/dL 0.2 - 1.2 02/07 Specimen Type: SERUM No comment entered. Ordering Provider: LATRICIA WOOD Report Released Date/Time: February 06, 2024 07:32 PM Reporting Lab: [place] [address] [address] Performing Lab: [place] [address] [address] [facility] [place] [place] [facility] TSH THYROTROPI N [UNITS/VOL UME] IN SERUM OR PLASMA 1.39 u[IU]/mL 0.35 - 5.00 02/07 Specimen Type: SERUM No comment entered. Ordering Provider: LATRICIA WOOD Report Released Date/Time: February 06, 2024 07:32 PM Reporting Lab: [place] [facility] [address] [facility] [address] Performing Lab: [place] [facility] [facility] [address] [facility] [address] [facility] [place] [facility] LIPID PANEL FASTING CHOLESTERO L [MASS/VOLU ME] IN SERUM OR PLASMA 162 mg/dL 02/07 Specimen Type: SERUM No comment entered. Ordering Provider: LATRICIA WOOD Report Released Date/Time: February 06, 2024 07:32 PM Reporting Lab: [place] [facility] [facility] [address] [facility] [address] Performing Lab: [place] [facility] [address] [facility] [address] [facility]ITALRL [facility] [place] [facility] LIPID PANEL FASTING TRIGLYCERI DE [MASS/VOLU ME] IN SERUM OR PLASMA 112 mg/dL 0 - 150 02/07 Specimen Type: SERUM No comment entered. Ordering Provider: LATRICIA WOOD Report Released Date/Time: February 06, 2024 07:32 PM Reporting Lab: [place] [facility] [facility] [address] [facility] [address] Performing Lab: [facility] [facility] [address] [facility] [address] [facility] [place] [facility] LIPID PANEL FASTING CHOLESTERO L IN LDL [MASS/VOLU ME] IN SERUM OR PLASMA BY CALCULATIO N 98 mg/dL 0 - 129 02/07 Specimen Type: SERUM No comment entered. Ordering Provider: LATRICIA WOOD Report Released Date/Time: February 06, 2024 07:32 PM Reporting Lab: [place] [facility] [facility] [address] [facility] [address] Performing Lab: [facility] [address] [facility] [address] [facility] HOSPITALRL TRN [facility]ITALUSE [facility] LIPID PANEL FASTING CHOLESTERO L.TOTAL/CH OLESTEROL IN HDL [MASS RATIO] IN SERUM OR PLASMA 3.9 02/07 Specimen Type: SERUM No comment entered. Ordering Provider: LATRICIA WOOD Report Released Date/Time: February 06, 2024 07:32 PM Reporting Lab: [facility] [address] [facility] [address] Performing Lab: [facility] HOSPITALRL TRN [facility]OSPITALUSEGOUVERNEUR [facility] [address] [facility] [address] [facility]RJ[facility]ERN [facility]USE [facility] LIPID PANEL FASTING CHOLESTERO L IN HDL [MASS/VOLU ME] IN SERUM OR PLASMA 42 mg/dL 40 - 60 02/07 Specimen Type: SERUM No comment entered. Ordering Provider: LATRICIA WOOD Report Released Date/Time: February 06, 2024 07:32 PM Reporting Lab: [facility] HOSPITALRL TRN [facility] [address] [facility] [address] Performing Lab: [facility] HOSPITALRL TRN [facility]OSPITALUSEGOUVERNEUR [facility] [address] [facility] [address] [facility]ITALUSE [facility] HEMOGLOB IN A1C PANEL HEMOGLOBIN A1C/HEMOGL OBIN.TOTAL [...] February 06, 2024 07:32 PM Reporting Lab: [facility] HOSPITALRJACKSON [facility]ENTERN [facility] [address] [facility] [address] Performing Lab: [facility] [address] [address] [facility] [place] [facility] URINALYS IS CLEAN CATCH COLOR OF URINE Light-Ye llow 02/07 Specimen Type: URINE Comment: If Glucose = >500 and Ketones are positive, please alert the Physician. Ordering Provider: LATRICIA WOOD Report Released Date/Time: February 06, 2024 07:32 PM Reporting Lab: [facility] [place] [address] [address] Performing Lab: [place] [facility] [address] [facility] [address] [facility] [place] [facility] URINALYS IS CLEAN CATCH APPEARANCE OF URINE Clear 02/07 Specimen Type: URINE Comment: If Glucose = >500 and Ketones are positive, please alert the Physician. Ordering Provider: LATRICIA WOOD Report Released Date/Time: February 06, 2024 07:32 PM Reporting Lab: [facility]ITALRLA[facility]TR[facility] [place] [address] [address] Performing Lab: [facility] [place] [address] [address] [facility]ITALRLA[facility] [place] [facility] URINALYS IS CLEAN CATCH GLUCOSE [MASS/VOLU ME] IN URINE NEGATIVE mg/dL 02/07 Specimen Type: URINE Comment: If Glucose = >500 and Ketones are positive, please alert the Physician. Ordering Provider: LATRICIA WOOD Report Released Date/Time: February 06, 2024 07:32 PM Reporting Lab: [facility] [place] [address] [address] Performing Lab: [place] [address] [address] [facility] [place] [facility] URINALYS IS CLEAN CATCH KETONES [MASS/VOLU ME] IN URINE BY TEST STRIP NEGATIVE mg/dL 02/07 Specimen Type: URINE Comment: If Glucose = >500 and Ketones are positive, please alert the Physician. Ordering Provider: LATRICIA WOOD Report Released Date/Time: February 06, 2024 07:32 PM Reporting Lab: [place] [facility] [address] [address] Performing Lab: [facility] [place] [facility] [address] [facility] [address] [facility] [place] [facility] URINALYS IS CLEAN CATCH ERYTHROCYT ES [PRESENCE] IN URINE SEDIMENT BY LIGHT MICROSCOPY NEGATIVE mg/dL 02/07 Specimen Type: URINE Comment: If Glucose = >500 and Ketones are positive, please alert the Physician. Ordering Provider: LATRICIA WOOD Report Released Date/Time: February 06, 2024 07:32 PM Reporting Lab: [facility] [place] [facility] [address] [facility] [address] Performing Lab: [facility] HOSPITALRLAKE MARTIN COMMUNITY HOSPITALTRN [facility]OSPITALUSETS [facility] [address] [facility] [address] [facility]ITALRLAKE M[facility]IN COMM[facility] HOSPITALTRN [place] [facility] URINALYS IS CLEAN CATCH PROTEIN [MASS/VOLU ME] IN URINE BY TEST STRIP NEGATIVE mg/dL 02/07 Specimen Type: URINE Comment: If Glucose = >500 and Ketones are positive, please alert the Physician. Ordering Provider: LATRICIA WOOD Report Released Date/Time: February 06, 2024 07:32 PM Reporting Lab: [facility]PITALRLAKE [facility]ITALTR[facility] [place] [address] [address] Performing Lab: [facility] [place] [facility] [address] [facility] [address] [facility]ITALRL [place] [place] [facility] URINALYS IS CLEAN CATCH NITRITE [PRESENCE] IN URINE NEGATIVE mg/dL 02/07 Specimen Type: URINE Comment: If Glucose = >500 and Ketones are positive, please alert the Physician. Ordering Provider: LATRICIA WOOD Report Released Date/Time: February 06, 2024 07:32 PM Reporting Lab: [facility] [place] [address] [address] Performing Lab: [facility] [place] [address] [address] [facility] [place] [facility] URINALYS IS CLEAN CATCH BILIRUBIN. TOTAL [PRESENCE] IN URINE NEGATIVE mg/dL 02/07 Specimen Type: URINE Comment: If Glucose = >500 and Ketones are positive, please alert the Physician. Ordering Provider: LATRICIA WOOD Report Released Date/Time: February 06, 2024 07:32 PM Reporting Lab: [facility] HOSPITALRLAKE MARTIN COMMUNITY HOSPITALTRN [facility]PITALUSETS [address] [address] Performing Lab: [facility]PITALRJACKSON MEDICAL CENTERN HIG[facility] HOSPITALUSETS [address] [address] [facility]ERN [facility] HOSPITALUSE [facility] URINALYS IS CLEAN CATCH SPECIFIC GRAVITY OF URINE BY REFRACTOME TRY 1.018 1.016 - 1.022 02/07 Specimen Type: URINE Comment: If Glucose = >500 and Ketones are positive, please alert the Physician. Ordering Provider: LATRICIA WOOD Report Released Date/Time: February 06, 2024 07:32 PM Reporting Lab: [facility]OSPITALRJACKSON MEDICAL CENTERN [facility] HOSPITALUSE[address] [address] Performing Lab: [facility]PITALRJACKSON MEDICAL CENTERN [facility] HOSPITALUSE[address] [address] [facility] HOSPITALUSE [facility] URINALYS IS CLEAN CATCH PH OF URINE BY TEST STRIP 6.0 5.0 - 9.0 02/07 Specimen Type: URINE Comment: If Glucose = >500 and Ketones are positive, please alert the Physician. Ordering Provider: LATRICIA WOOD Report Released Date/Time: February 06, 2024 07:32 PM Reporting Lab: [facility]ERN [facility]OSPITALUSE[address] [address] Performing Lab: [facility] HOSPITALRLAKE MARTIN COMMUNITY HOSPITALTRN [facility]PITALUSE[address] [address] [facility]RJACKSON MEDICAL CENTERN H[facility] HOSPITALUSE [facility] URINALYS IS CLEAN CATCH UROBILINOG EN [MASS/VOLU ME] IN URINE BY TEST STRIP <2.0mg/d L <2.0 - 2.0 02/07 Specimen Type: URINE Comment: If Glucose = >500 and Ketones are positive, please alert the Physician. Ordering Provider: LATRICIA WOOD Report Released Date/Time: February 06, 2024 07:32 PM Reporting Lab: [facility]OSPITALRJACKSON MEDICAL CENTERN [facility] HOSPITALUSE[address] [address] Performing Lab: [facility] [place] [facility] [address] [facility] [address] [facility] [place] [facility] URINALYS IS CLEAN CATCH LEUKOCYTE ESTERASE [PRESENCE] IN URINE BY TEST STRIP NEGATIVE 02/07 Specimen Type: URINE Comment: If Glucose = >500 and Ketones are positive, please alert the Physician. Ordering Provider: LATRICIA WOOD Report Released Date/Time: February 06, 2024 07:32 PM Reporting Lab: [facility] [place] [facility] [address] [facility] [address] Performing Lab: [place] [facility] [address] [facility] [address] [facility] [place] [facility] MICROALB UMIN CREATINI NE RATIO PANEL MICROALBUM IN/CREATIN INE [MASS RATIO] IN URINE 12.9 mg/g 0 - 29.9 02/07 Specimen Type: URINE No comment entered. Ordering Provider: LATRICIA WOOD Report Released Date/Time: February 06, 2024 07:32 PM Reporting Lab: [place] [facility] [address] [facility] [address] Performing Lab: [place] [facility] [address] [facility] [address] [facility] [place] [facility] MICROALB UMIN CREATINI NE RATIO PANEL MICROALBUM IN [MASS/VOLU ME] IN URINE 1.4 mg/dL 02/07 Specimen Type: URINE No comment entered. Ordering Provider: LATRICIA WOOD Report Released Date/Time: February 06, 2024 07:32 PM Reporting Lab: [facility] [place] [facility] [address] [facility] [address] Performing Lab: [facility] [place] [facility] [address] [facility] [address] [facility] [place] [facility] MICROALB UMIN CREATINI NE RATIO PANEL CREATININE [MASS/VOLU ME] IN URINE 108.66 mg/dL 02/07 Specimen Type: URINE No comment entered. Ordering Provider: LATRICIA WOOD Report Released Date/Time: February 06, 2024 07:32 PM Reporting Lab: [facility] [place] [facility] [address] [facility] [address] Performing Lab: [facility] [place] [facility] [address] [facility] [address] [facility] [place] [facility] BASIC METABOLI C PANEL (fasting ) UREA NITROGEN [MASS/VOLU ME] IN SERUM OR PLASMA 14 mg/dL 7 - 25 02/05 Specimen Type: SERUM No comment entered. Ordering Provider: LATRICIA WOOD Report Released Date/Time: January 28, 2023 04:30 PM Reporting Lab: [place] [facility] [address] [facility] [address] Performing Lab: [place] [facility] [address] [facility] [address] IN [place] [facility] BASIC METABOLI C PANEL (fasting ) GLUCOSE [MASS/VOLU ME] IN SERUM OR PLASMA 143 mg/dL 65 - 100 02/05 H Specimen Type: SERUM No comment entered. Ordering Provider: LATRICIA WOOD Report Released Date/Time: January 28, 2023 04:30 PM Reporting Lab: [place] [facility] [address] [facility] [address] Performing Lab: [facility] [place] [facility] [address] [facility] [address] [place] [facility] BASIC METABOLI C PANEL (fasting ) SODIUM [MOLES/VOL UME] IN SERUM OR PLASMA 141 mmol/L 135 - 145 02/05 Specimen Type: SERUM No comment entered. Ordering Provider: LATRICIA WOOD Report Released Date/Time: January 28, 2023 04:30 PM Reporting Lab: [facility] [place] [facility] [address] [facility] [address] Performing Lab: [facility] [place] [facility] [address] [facility] [address] [facility] [place] [facility] BASIC METABOLI C PANEL (fasting ) POTASSIUM [MOLES/VOL UME] IN SERUM OR PLASMA 4.9 mmol/L 3.5 - 5.0 02/05 Specimen Type: SERUM No comment entered. Ordering Provider: LATRICIA WOOD Report Released Date/Time: January 28, 2023 04:30 PM Reporting Lab: [place] [facility] [address] [facility] [address] Performing Lab: IN [facility]L [facility]PITALUSETS [address] [address] [facility]PITALRL [place] [facility] BASIC METABOLI C PANEL (fasting ) CHLORIDE [MOLES/VOL UME] IN SERUM OR PLASMA 105 mmol/L 100 - 110 02/05 Specimen Type: SERUM No comment entered. Ordering Provider: LATRICIA WOOD Report Released Date/Time: January 28, 2023 04:30 PM Reporting Lab: IN [facility]PITALUSETS [address] [address] Performing Lab: IN [facility]PITALUSETS [address] [address] [facility] HOSPITALRL WSTRN [facility] SYSTEMCHUSE [facility] BASIC METABOLI C PANEL (fasting ) CARBON DIOXIDE, TOTAL [MOLES/VOL UME] IN SERUM OR PLASMA 28 meq/L 20 - 30 02/05 Specimen Type: SERUM No comment entered. Ordering Provider: LATRICIA WOOD Report Released Date/Time: January 28, 2023 04:30 PM Reporting Lab: IN [facility]ITALUSETS [address] [address] Performing Lab: IN [facility]ITALUSETS [address] [address] [facility]PITALRL [place] [facility] BASIC METABOLI C PANEL (fasting ) CREATININE [MASS/VOLU ME] IN SERUM OR PLASMA 0.85 mg/dL 0.50 - 1.40 02/05 Specimen Type: SERUM No comment entered. Ordering Provider: LATRICIA WOOD Report Released Date/Time: January 28, 2023 04:30 PM Reporting Lab: IN [facility]ITALUSETS [address] [address] Performing Lab: IN [facility]ITALUSETS [address] [address] [facility] HOSPITALRLAKE MARTIN COMMUN[facility] HOSPITALTRN [place] [facility] BASIC METABOLI C PANEL (fasting ) GLOMERULAR FILTRATION RATE/1.73 SQ M.PREDICTE D [VOLUME RATE/AREA] IN SERUM, PLASMA OR BLOOD BY CREATININE -BASED FORMULA (CKD-EPI) >90mL/mi n 02/05 Specimen Type: SERUM No comment entered. Ordering Provider: LATRICIA WOOD Report Released Date/Time: January 28, 2023 04:30 PM Reporting Lab: [facility]ITALRL [place] [address] [address] Performing Lab: [facility]ITALRL [place] [facility] [address] [facility] [address] [facility]PITALRJACKSON MEDICAL CENTERN [place] [facility] CBC AND DIFF (AUTO) LEUKOCYTES [#/VOLUME] IN BLOOD BY AUTOMATED COUNT 6.48 10*3/uL 4.50 - 11.00 02/05 Specimen Type: BLOOD No comment entered. Ordering Provider: LATRICIA WOOD Report Released Date/Time: January 28, 2023 04:30 PM Reporting Lab: [facility]ITALRL [place] [facility] [address] [facility] [address] Performing Lab: [place] [facility] [address] [facility] [address] [facility] [place] [facility] CBC AND DIFF (AUTO) ERYTHROCYT ES [#/VOLUME] IN BLOOD BY AUTOMATED COUNT 4.56 10*6/uL 4.23 - 5.66 02/05 Specimen Type: BLOOD No comment entered. Ordering Provider: LATRICIA WOOD Report Released Date/Time: January 28, 2023 04:30 PM Reporting Lab: [facility]ITALRL [place] [facility] [address] [facility] [address] Performing Lab: [facility] HOSPITALRLAKE M[facility] HOSPITALTRN [place] [address] [address] [facility]ITALRJACKSON MEDICAL CENTERN [facility] SYSTEMCHUSE [facility] CBC AND DIFF (AUTO) HEMOGLOBIN [MASS/VOLU ME] IN BLOOD 14.8 g/dL 12.8 - 17 02/05 Specimen Type: BLOOD No comment entered. Ordering Provider: LATRICIA WOOD Report Released Date/Time: January 28, 2023 04:30 PM Reporting Lab: [facility] [place] [facility] [address] [facility] [address] Performing Lab: [facility] [place] [facility] [address] [facility] [address] [facility] [place] [facility] CBC AND DIFF (AUTO) HEMATOCRIT [VOLUME FRACTION] OF BLOOD BY AUTOMATED COUNT 43.9 39.2 - 50.4 02/05 Specimen Type: BLOOD No comment entered. Ordering Provider: LATRICIA WOOD Report Released Date/Time: January 28, 2023 04:30 PM Reporting Lab: [place] [facility] [address] [facility] [address] Performing Lab: [place] [facility] [address] [facility] [address] [place] [facility] CBC AND DIFF (AUTO) MCV [ENTITIC VOLUME] BY AUTOMATED COUNT 96.3 fL 82 - 99 02/05 Specimen Type: BLOOD No comment entered. Ordering Provider: LATRICIA WOOD Report Released Date/Time: January 28, 2023 04:30 PM Reporting Lab: [place] [facility] [address] [facility] [address] Performing Lab: [place] [facility] [address] [facility] [address] [facility]ITALRL [place] [facility] CBC AND DIFF (AUTO) MCHC [MASS/VOLU ME] BY AUTOMATED COUNT 33.7 g/dL 30.8 - 35.1 02/05 Specimen Type: BLOOD No comment entered. Ordering Provider: LATRICIA WOOD Report Released Date/Time: January 28, 2023 04:30 PM Reporting Lab: [place] [facility] [address] [facility] [address] Performing Lab: [place] [facility] [address] [facility] [address] [place] [facility] CBC AND DIFF (AUTO) PLATELETS [#/VOLUME] IN BLOOD BY AUTOMATED COUNT 190 10*3/uL 140 - 360 05/26 /2023 Specimen Type: BLOOD No comment entered. Ordering Provider: LATRICIA WOOD Report Released Date/Time: January 28, 2023 04:30 PM Reporting Lab: [facility] [place] [facility] [address] [facility] [address] Performing Lab: [facility] [place] [facility] [address] [facility] [address] [facility] [place] [facility] CBC AND DIFF (AUTO) ERYTHROCYT E DISTRIBUTI ON WIDTH [RATIO] BY AUTOMATED COUNT 12.6 12.0 - 16.0 02/05 Specimen Type: BLOOD No comment entered. Ordering Provider: LATRICIA WOOD Report Released Date/Time: January 28, 2023 04:30 PM Reporting Lab: [place] [facility] [address] [facility] [address] Performing Lab: [place] [facility] [address] [facility] [address] [place] [facility] CBC AND DIFF (AUTO) MONOCYTES [#/VOLUME] IN BLOOD BY AUTOMATED COUNT 0.67 10*3/uL 0.30 - 1.10 02/05 Specimen Type: BLOOD No comment entered. Ordering Provider: LATRICIA WOOD Report Released Date/Time: January 28, 2023 04:30 PM Reporting Lab: [facility] [place] [place] [facility] [address] [facility] [address] Performing Lab: [facility] [place] [facility] [address] [facility] [address] [facility] [place] [facility] CBC AND DIFF (AUTO) MCH [ENTITIC MASS] BY AUTOMATED COUNT 32.5 pg 26.2 - 32.6 02/05 Specimen Type: BLOOD No comment entered. Ordering Provider: LATRICIA WOOD Report Released Date/Time: January 28, 2023 04:30 PM Reporting Lab: [facility] [place] [facility] [address] [facility] [address] Performing Lab: [place] [facility] [address] [facility] [address] [facility] [place] [facility] CBC AND DIFF (AUTO) NEUTROPHIL S/100 LEUKOCYTES IN BLOOD BY AUTOMATED COUNT 67.3 43.7 - 75.8 02/05 Specimen Type: BLOOD No comment entered. Ordering Provider: LATRICIA WOOD Report Released Date/Time: January 28, 2023 04:30 PM Reporting Lab: [facility] [place] [facility] [address] [facility] [address] Performing Lab: [facility] [place] [facility] [address] [facility] [address] [facility] [place] [facility] CBC AND DIFF (AUTO) LYMPHOCYTE S/100 LEUKOCYTES IN BLOOD BY AUTOMATED COUNT 18.7 14.0 - 42.3 02/05 Specimen Type: BLOOD No comment entered. Ordering Provider: LATRICIA WOOD Report Released Date/Time: January 28, 2023 04:30 PM Reporting Lab: [facility] [place] [address] [address] Performing Lab: [facility] [place] [facility] [address] [facility] [address] [facility] [place] [facility] CBC AND DIFF (AUTO) MONOCYTES/ 100 LEUKOCYTES IN BLOOD BY AUTOMATED COUNT 10.3 5.1 - 13.7 02/05 Specimen Type: BLOOD No comment entered. Ordering Provider: LATRICIA WOOD Report Released Date/Time: January 28, 2023 04:30 PM Reporting Lab: [facility] [place] [facility] [address] [facility] [address] Performing Lab: [facility] [place] [facility] [address] [facility] [address] [facility] [place] [facility] CBC AND DIFF (AUTO) EOSINOPHIL S/100 LEUKOCYTES IN BLOOD BY AUTOMATED COUNT 2.3 0.4 - 6.8 02/05 Specimen Type: BLOOD No comment entered. Ordering Provider: LATRICIA WOOD Report Released Date/Time: January 28, 2023 04:30 PM Reporting Lab: [facility] [place] [facility] [address] [facility] [address] Performing Lab: [facility] [place] [place] [facility] [address] [facility] [address] [facility] [place] [facility] CBC AND DIFF (AUTO) BASOPHILS/ 100 LEUKOCYTES IN BLOOD BY AUTOMATED COUNT 0.9 0.1 - 2.0 02/05 Specimen Type: BLOOD No comment entered. Ordering Provider: LATRICIA WOOD Report Released Date/Time: January 28, 2023 04:30 PM Reporting Lab: [place] [address] [address] Performing Lab: [place] [facility] [facility] [address] [facility] [address] [place] [facility] [place] [facility] CBC AND DIFF (AUTO) NEUTROPHIL S [#/VOLUME] IN BLOOD BY AUTOMATED COUNT 4.36 10*3/uL 2.20 - 7.60 02/05 Specimen Type: BLOOD No comment entered. Ordering Provider: LATRICIA WOOD Report Released Date/Time: January 28, 2023 04:30 PM Reporting Lab: [place] [address] [address] Performing Lab: [place] [address] [address] [facility] [place] [facility] CBC AND DIFF (AUTO) LYMPHOCYTE S [#/VOLUME] IN BLOOD BY AUTOMATED COUNT 1.21 10*3/uL 1.00 - 3.20 02/05 Specimen Type: BLOOD No comment entered. Ordering Provider: LATRICIA WOOD Report Released Date/Time: January 28, 2023 04:30 PM Reporting Lab: [facility] [place] [facility] [address] [facility] [address] Performing Lab: [facility] [place] [facility] [address] [place] [address] [place] [facility] [place] [facility] CBC AND DIFF (AUTO) EOSINOPHIL S [#/VOLUME] IN BLOOD BY AUTOMATED COUNT 0.15 10*3/uL 0.03 - 0.44 02/05 Specimen Type: BLOOD No comment entered. Ordering Provider: LATRICIA WOOD Report Released Date/Time: January 28, 2023 04:30 PM Reporting Lab: [facility] [place] [facility] [address] [facility] [address] Performing Lab: [place] [facility] [address] [facility] [address] [place] [facility] [facility] CBC AND DIFF (AUTO) BASOPHILS [#/VOLUME] IN BLOOD BY AUTOMATED COUNT 0.06 10*3/uL 0.01 - 0.13 02/05 Specimen Type: BLOOD No comment entered. Ordering Provider: LATRICIA WOOD Report Released Date/Time: January 28, 2023 04:30 PM Reporting Lab: [place] [facility] [address] [facility] [address] Performing Lab: [place] [facility] [address] [facility] [address] [facility]RL [facility] [place] [facility] CBC AND DIFF (AUTO) IMMATURE GRANULOCYT ES/100 LEUKOCYTES IN BLOOD BY AUTOMATED COUNT 0.5 0.0 - 0.7 02/05 Specimen Type: BLOOD No comment entered. Ordering Provider: LATRICIA WOOD Report Released Date/Time: January 28, 2023 04:30 PM Reporting Lab: [place] [facility] [address] [facility] [address] Performing Lab: [place] [facility] [address] [facility] [address] [facility] [place] [facility] CBC AND DIFF (AUTO) IMMATURE GRANULOCYT ES [#/VOLUME] IN BLOOD 0.03 10*3/uL 0.00 - 0.06 02/05 Specimen Type: BLOOD No comment entered. Ordering Provider: LATRICIA WOOD Report Released Date/Time: January 28, 2023 04:30 PM Reporting Lab: [place] [facility] [address] [facility] [address] Performing Lab: [place] [address] [address] [facility] [place] [facility] Vital Signs Combined list of inpatient and [...] HCS CPTR OPHTH DX IMG POST SEGMT [id number] Diagnos is: ICD-10- CM H40.013 Open angle with borderl ine finding s, low risk, bilater al HAILEY LOWRY NEETU 12/22 [facility] [place] 1/ [id number] Diagnos is: ICD-10- CM E11.9 Type 2 diabete s mellitu s without complic ations HAILEY LOWRY NEETU 12/22 [facility] FIT SPECTACLES MONOFOCAL [id number] Diagnos is: ICD-10- CM Z46.0 Encount er for fit/adj st of spectac les and contact lenses HAILEY LOWRY 12/22 [facility] [place] [place] [facility] OFFICE O/P EST LOW 20 MIN [id number] Diagnos is: ICD-10- CM E11.9 Type 2 diabete s mellitu s without complic ations MARINA WOOD RD 02/13 [facility] Outpatient Encounter [id number] 02/17 [facility] Outpatient Encounter [id number] 02/22 [facility] Social History Combined list of available smoking, tobacco, and other social history from 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 Social History Type Response Date Comment Source Tobacco smoking status [facility] VA-TOBACCO FORMER USER 02/14/2024 [facility] History of tobacco use IN-TOBACCO QUIT 15 YRS OR MORE 02/14/2024 [facility] History of tobacco use VA-TOBACCO FORMER USER 02/12/2023 [facility] History of tobacco use VA-TOBACCO FORMER USER 02/13/2022 [facility] History of tobacco use VA-TOBACCO FORMER USER 02/11/2021 [facility] History of tobacco use IN-TOBACCO QUIT 15 YRS OR MORE 12/22/2019 [facility] History of tobacco use VA-TOBACCO NEVER USED 02/17/2018 [facility] History of tobacco use LIFETIME NON-TOBACCO USER 02/17/2018 [facility] History of tobacco use QUIT TOBACCO USE > 7 YEARS AGO 03/02/2016 PT STATES HE STOPEED 20 YRS AGO. [facility] History of tobacco use QUIT TOBACCO USE > 7 YEARS AGO 04/18/2010 [facility] Plan of Care List of future care activities from [facility] facilities. Additional future care activities may be listed in the Assessment and Plan section. Date/Time Care Activity Care Activity Detail Facili ty 01/16/2025 AMBULATORY - MEDICINE AMBULATORY - MEDICI NE [facility] 02/15/2025 AMBULATORY - MEDICINE AMBULATORY - MEDICI NE [facility] Advance Directives List of completed, amended, or rescinded Advance Directives on record at [facility] facilities. An actual copy of the Directive is not included. Date Advance Directive Provider Source 02/18/2024 ADVANCE DIRECTIVE [facility]
--- OUTSIDE RECORDS SUMMARY | 2024-11-15 08:04 | XMS_ITS ---
Author Organization [facility] Address [address] [place] [id number] Care Team Providers Care Battery Repairer Name Role Phone Po Daniel THOMASON Primary Care Provider Mac Rose [phone] REASON FOR VISIT refill pantoprazole Encounters Encounter Location Date Provider Diagnosis [facility] [address] [place] [phone] 03/14/2024 Mac Garcia Plan Of Treatment No Information Progress Notes * VEE SAL RDOB:1950 (73 yo M)Acc No.[id number]:03/14/2024 Patient:?VEE SAL :1950???Age:73 Y???Sex:Male Address:[address] [place] [id number] * true * Date:? Generated for Brandyni silvano/Tequila/eTransmitting on:?11/15/2024 08:03 AM EST
--- NOTE | 2024-11-15 08:12 | A.OFFPC_ITS ---
Vital Signs 3 11/15/24 08:13 11/15/24 08:49 Height 5 ft 8 in Weight 270 lb BMI 41.0 BP 122/68 Blood Pressure Location Lt brachial Position Sitting Pulse 55 Pulse Source Pulse Oximeter Pulse Oximetry (%) 90 L 96 Oxygen Delivery Method Room Air Room Air Intake Visit Reasons: Earlobe Check Up Caramel Maker Required: No Allergies terbinafine [From LAMISIL] Adverse Reaction (Intermediate, Verified 11/15/24 08:14) GI UPSET Lamisil Allergy (Unknown, Uncoded 11/15/24 08:14) Stomach Upset Tobacco use date assessed: 11/15/24 Fall risk assessment: No Falls in past year Last assessed Fall Risk: 11/15/24 Dental Screening Dental Screen Date: 11/15/24 Did you have a dental visit in the last 12 months?: Yes Did you have a dental problem in the last 6 months where you did not have access to dental care?: No Was dental information given to patient?: Patient has dentist HPI Earlobe Check Up 2 HPI0 Details L ear mass - healing and scab falling off and is getting better [facility] Medical History (Updated 11/08/24 @ 10:51 by Roxi Duarte PA-C) SOB (shortness of breath) on exertion Impacted cerumen of both ears Aortic dilatation Cholelithiasis Obstructive sleep apnea Erectile dysfunction Hypercholesterolemia Peripheral neuropathy Asthma Type 2 diabetes mellitus with hyperglycemia Chronic low back pain Hypertension Surgical History S/P ORIF (open reduction internal fixation) fracture History of left knee replacement History of total right knee replacement History of right hip replacement History of pericardiectomy H/O lumbar discectomy Family History (Updated 06/10/21 @ 08:44 by DAVID Reid) Mother Mental health disorder Social History (Updated 03/13/24 @ 14:01 by Daniel Romano MD) Housing: House Alcohol intake: current Alcohol intake frequency: a few times a week Comment: once a week 1 drinks Patient Tobacco Use Status: Former Tobacco user Tobacco use type: Cigarette Years Smoked: stopped 1994 e-Cigarette/Vaping Use: Never Used Second Hand Smoke Exposure: Yes service: Yes Current occupational status: retired Cognitive needs: No Hearing needs: Yes Vision needs: Yes Questionnaire PHQ-9 Over the last 2 weeks, how often have you been bothered by any of the following problems? 1. Little interest or pleasure in doing things: not at all 2. Feeling down, depressed, or hopeless: not at all 3. Trouble falling or staying asleep, or sleeping too much: not at all 4. Feeling tired or having little energy: not at all 5. Poor appetite or overeating: not at all 6. Feeling bad about yourself - or that you are a failure or have let yourself or your family down: not at all 7. Trouble concentrating on things, such as reading the newspaper or watching television: not at all 8. Moving or speaking so slowly that other people could have noticed. Or the opposite - being so fidgety or restless that you have been moving around a lot more than usual: not at all 9. Thoughts that you would be better off or of hurting yourself in some way: not at all Total score: 0 Depression Screening Interpretation: Negative Depression Screening Done: Yes Source: Developed by Drs. Mac Echeverria, Supriya Weston, Kyle Moon and colleagues, with an educational teofilo from [employer]. Thrive Questionnaire Date Thrive assessed: 11/15/24 I am a: Patient What is your living situation today?: I have a steady place to live Within the past 12 months, did the food you bought not last and you didn't have the money to get more?: Never true Within the past 12 months, did you worry whether your food would run out before you got money to buy more?: Never true Do you have trouble paying for medicines?: No Do you have trouble getting transportation to medical appointments?: No Do you have trouble paying your heating and electricity bill?: No Do you have trouble taking care of your child, family member or friend?: No Do you have trouble with day-to-day activities such as bathing, preparing meals, shopping, managing finances, etc.?: No Are you currently unemployed and looking for a job?: No Are you interested in more education?: No Currently or been in a relationship where the following occur: No concerns reported THRIVE Score: 0 AUDIT C Alcohol Use Questionnaire (AUDIT-C) 2. How many drinks containing alcohol do you have on a typical day when you are drinking?: 1 or 2 3. How often do you have six or more drinks on one occasion?: Never Total Score: 0 NAMITA-7 AMB Questionnaire NAMITA-7 Date NAMITA - 7 assessed: 11/15/24 Feeling nervous, anxious, or on edge: 0 = Not at all Not being able to stop or control worryin = Not at all Worrying too much about different things: 0 = Not at all Trouble relaxin = Not at all Being so restless that it is hard to sit still: 0 = Not at all Becoming easily annoyed or irritable: 0 = Not at all Feeling afraid as if something awful might happen: 0 = Not at all Total NAMITA-7 score (0-4 normal; 5-9 mild; 10-14 moderate; 15-21 severe): 0 Source: Developed by Drs. Mac Echeverria, Supriya Weston, Kyle Moon and colleagues, with an educational teofilo from [employer]. Physical exam (Primary Care) Vital Signs: Last Vital Signs Pulse 55 11/15/24 08:13 BP 122/68 11/15/24 08:13 Pulse Ox 90 L 11/15/24 08:13 Oxygen Delivery Method Room Air 11/15/24 08:13 BMI result Body Mass Index 41.0 Tobacco/Smoking Status: Tobacco use Status Tobacco use date assessed 11/15/24 11/15/24 08:23 Patient Tobacco Use Status Former Tobacco user 11/15/24 08:13 Tobacco use type Cigarette 11/15/24 08:13 e-Cigarette/Vaping Use Never Used 11/15/24 08:13 PHQ-9: PHQ-9 Score PHQ-9: Total score 0 11/15/24 08:27 Depression Screening Interpretation: Negative Thrive Assessment: Date of Thrive Assessment Date Thrive assessed 11/15/24 11/15/24 08:23 Currently or been in a relationship where the following occur: No concerns reported Const General: alert; No acute distress HENMT Other: L ear lesion decreased in size and not as red also now5 mm now Outer ear/TM images: 2 1. 1 cm mass no more pink, 5 mm scab in the center. Eyes Conjunctivae: conjunctivae normal Resp Auscultation: clear to auscultation bilaterally Cardio Rate: regular rate Rhythm: regular rhythm GI Inspection: Yes normal to inspection Extrem General: Yes normal to inspection and No edema Results AMB Hemoglobin A1c 2 AMB Hemoglobin A1c 5.4 % Last Edit by Lety Baca CMA on 11/15/24 08 :27 Results Reviewed Results Reviewed: Laboratory Last Values Hgb A1c (Clinic) 5.4 % (4.0-6.0) 11/15/24 08:13 Coding Level of Care Code Est Pt Level 4 (10573) Complex EM visit Add On G2211 Diagnoses Type 2 diabetes mellitus with hyperglycemia, without long-term current use of insulin E11.65 Diabetes mellitus halfway insulin use: without halfway use Essential hypertension I10 Hypertension type: essential hypertension Hypercholesterolemia E78.00 Obstructive sleep apnea G47.33 Morbid obesity E66.01 Ear lesion H93.90 Assessment & Plan Assessment & Plan (1) Type 2 diabetes mellitus with hyperglycemia: Comment: [place] 06/2022 Code(s): E11.65 - Type 2 diabetes mellitus with hyperglycemia Category: Medical Qualifiers: Diabetes mellitus halfway insulin use: without halfway use Q ualified Code(s): E11.65 - Type 2 diabetes mellitus with hyperglycemia Plan: Decrease the amount of carbohydrate intake, pasta, bread, rice and potatoes are all sugar and that is aside from all the sweet stuff, remember that fruits are good but they are Sweet also. Hemoglobin A1c goal of less than 7.0 on metformin 500 mg twice a day Ozempic 2 mg once a week (2) Hypertension: Code(s): I10 - Essential (primary) hypertension Category: Medical Qualifiers: Hypertension type: essential hypertension Qualified Code(s): I10 - Essential (primary) hypertension Plan: Continue with blood pressure medication. Decrease salt intake and exercise patient continues to use the lisinopril 5 mg once a day (3) Hypercholesterolemia: Code(s): E78.00 - Pure hypercholesterolemia, unspecified Category: Medical Plan: Avoid fried foods, chicken skin, eggs, butter margarine, pastries and meat. Be it pork or beef they have a lot of cholesterol 03/02/2024 last blood work LDL goal of less than 100 on on simvastatin 40 mg at bedtime (4) Obstructive sleep apnea: Comment: September 2021 uses the CPAP every night an benefits from this Code(s): G47.33 - Obstructive sleep apnea (adult) (pediatric) Category: Medical Plan: Continue to use the CPAP more than 4 hours a night and benefits from this. (5) Morbid obesity: Code(s): E66.01 - Morbid (severe) obesity due to excess calories Category: Medical Plan: Noted 3 lb weight loss (6) Ear lesion: Code(s): H93.90 - Unspecified disorder of ear, unspecified ear Category: Medical Plan: Patient has a nonhealing wound on the earlobe. Plan History of Present Illness The patient is a 74-year-old male presenting with a follow-up for diabetes mellitus, hypertension, ear lesion, and nasal palpation. He has controlled type 2 diabetes mellitus and hypertension, with recent lab results indicating mild anemia and stable cholesterol levels on treatment. His obstructive sleep apnea is well-managed with CPAP. In October, for dermatological concerns regarding an ear lesion and left nostril palpation, he received an antibiotic cream. Previous colonoscopy was in 2018, and he was noted to have been compliant with his treatments. Health Maintenance - Diabetes management, targeted hemoglobin A1c control. - Continued lipid management with rosuvastatin aiming LDL < 100 mg/dL. - Regular use of CPAP for obstructive sleep apnea. - Last colonoscopy in 2018. - Cardiovascular risk management with Lisinopril. Social History Review of Systems - HEENT: Reports ear lesion, left nasal palpation. - Cardiovascular: Denies new chest pain or dyspnea. - Respiratory: Denies increased wheezing or cough. - General: Denies significant recent weight changes, reports 3-pound weight loss. Physical Exam Results - Labs: Hemoglobin 80.9 g/L, Platelets 40.3 X 10^9/L, LDL cholesterol 83 mg/dL, Hemoglobin A1c 7.0%. Plan It is essential to continue the existing therapeutic regimens, including metformin, Ozempic, Lisinopril, and rosuvastatin, to manage chronic conditions. The patient's dermatologic issues are managed through dermatology referral and treatments prescribed. Consistency in CPAP use and monitoring of anemia through follow-up labs are necessary for continuing health maintenance. Patient was informed and verbally consented to the use of an ambient scribe for clinic note documentation during this visit. Discussion Notes We discussed the current stability of the patient's chronic conditions, specifically regarding diabetes and hypertension, and emphasized adherence to medication regimens. Managing cholesterol levels and utilization of CPAP for sleep apnea were addressed, and ensuring compliance was stressed. The ear lesion and left nasal palpation were discussed, and management via dermatology follow- up was emphasized. We reviewed the importance of addressing anemia as part of ongoing care and maintaining regular health checks. Patient Instructions - Continue taking prescribed medications for diabetes, hypertension, and cholesterol management. - Use CPAP machine regularly as directed. - Apply antibiotic cream to lesions as prescribed by dermatology. - Schedule follow-up appointments as advised. - Report any new or worsening symptoms to our office promptly. - Maintain a healthy diet and exercise routine. Orders: Orders 2 Complete Blood Count Auto Diff 3 Months E11.65 - Type 2 diabetes mellitus with hyperglycemia Comprehensive Met. Panel 3 Months E11. - Type 2 diabetes mellitus with hyperglycemia Lipid Panel 3 Months E11. - Type 2 diabetes mellitus with hyperglycemia, E78.00 - Pure hypercholesterolemia, unspecified Microalbumin, Random (w Creat) 3 Months E11. - Type 2 diabetes mellitus with hyperglycemia Creatinine Urine 3 Months E11. - Type 2 diabetes mellitus with hyperglycemia Prostate Specific Antigen Scr 3 Months E11. - Type 2 diabetes mellitus with hyperglycemia B Type Natriuretic Peptide 3 Months E11. - Type 2 diabetes mellitus with hyperglycemia AMB Hemoglobin A1c Today Z13.9 - Encounter for screening, unspecified Free T4 (Free Thyroxine) 3 Months E11.65 - Type 2 diabetes mellitus with hyperglycemia Thyroid Stimulating Hormone 3 Months E11. - Type 2 diabetes mellitus with hyperglycemia Vitamin B12 and Folate 3 Months E11.65 - Type 2 diabetes mellitus with hyperglycemia Hemoglobin A1c 3 Months E11.65 - Type 2 diabetes mellitus with hyperglycemia
[2024-11-15 08:13] VITALS: BP 122/68; PULSE 55; O2SAT 90; BMI 41.0
[2024-11-15 08:49] VITALS: O2SAT 96
== END 2024-11-15 08:59 | disposition home or self-care (01) ==
PROVIDERS: PCP Internal Medicine; Visit Provider Internal Medicine
DX: E11.65 Type 2 diabetes mellitus with hyperglycemia (principal); I10 Essential (primary) hypertension; E66.01 Morbid (severe) obesity due to excess calories; Z68.41 Body mass index [BMI] 40.0-44.9, adult; E78.00 Pure hypercholesterolemia, unspecified; G47.33 Obstructive sleep apnea (adult) (pediatric); H93.92 Unspecified disorder of left ear

== ENCOUNTER → 2024-11-15 07:56 | Outpatient (BNVA) | payer MEDICARE, SELFPAY | PROVIDERS: PCP Internal Medicine; Visit Provider Internal Medicine | DX: E11.65 Type 2 diabetes mellitus with hyperglycemia (principal); I10 Essential (primary) hypertension; E78.00 Pure hypercholesterolemia, unspecified; G47.33 Obstructive sleep apnea (adult) (pediatric); E66.01 Morbid (severe) obesity due to excess calories; H93.90 Unspecified disorder of ear, unspecified ear | CPT/HCPCS: 83036; 99212 ==

== ENCOUNTER 2024-12-15 14:04 | Emergency (ER) | payer MEDICARE, SELFPAY ==
--- NOTE | ~2024-12-15 | CT_ITS ---
CLINICAL HISTORY: head injury CT head without contrast Comparison: None Findings: No intra-axial mass, midline shift, hydrocephalus, or acute hemorrhage. No significant atrophy. Mild nonspecific bilateral supratentorial white matter hypodensities most suggestive of chronic small-vessel ischemic changes. 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 Atherosclerotic vascular disease. Minimal mucosal thickening in left maxillary sinus. The orbits are within normal limits. Anterior frontal/forehead swelling and soft tissue hematoma. No acute skull fracture. IMPRESSION: 1. No acute intracranial findings. 2. Anterior frontal/forehead swelling and hematoma with no associated acute fracture. This document has been electronically signed by: Megan Nolan MD on 12/15/2024 17:40:03
--- NOTE | ~2024-12-15 | CT_ITS ---
CLINICAL HISTORY: fall CT maxillofacial without contrast Comparison: None Findings: No acute fractures. No dislocations. Temporomandibular joints are intact. Anterior frontal/forehead soft tissue swelling and hematoma. Minimal mucosal thickening in left maxillary antrum and minimal fluid in left mastoid air cells. Orbital contents within normal limits. Atherosclerotic vascular disease. No foreign bodies. IMPRESSION: 1. Anterior frontal/forehead soft tissue swelling and hematoma. No acute facial bone fracture. This document has been electronically signed by: Megan Nolan MD on 12/15/2024 18:00:33
--- NOTE | ~2024-12-15 | CT_ITS ---
CLINICAL HISTORY: fall CT cervical spine without contrast Comparison: None Findings: Straightening of the cervical lordosis. No subluxation. Vertebral body height is maintained. No acute fracture in the cervical spine. Craniocervical junction is intact. Multilevel degenerative disc disease from C4-5 to C7-T1 most significantly involving C5-6 and C6-7. Multilevel facet arthropathy. Prevertebral soft tissues within normal limits. Atherosclerotic vascular disease. No consolidation or effusion at the lung apices. IMPRESSION: 1. No acute findings. 2. Degenerative changes described. This document has been electronically signed by: Megan Nolan MD on 12/15/2024 17:32:29
[2024-12-15 14:09] VITALS: BP 133/74; PULSE 80; O2SAT 97
[2024-12-15 14:20] VITALS: BP 131/62; PULSE 80; RESP 16; TEMP 36.8; O2SAT 96; BMI 40.7
[2024-12-15 15:09] VITALS: RESP 18
--- NOTE | 2024-12-15 16:02 | ED_ITS ---
HPI - Fall General Chief Complaint: Fall Stated Complaint: FALL, +HS, NO LOC, NO THINNERS History of Present Illness HPI Narrative: Patient is a 74-year-old male presented with having fallen accidentally. Patient not on any blood thinners. Hit his face. There was no loss of consciousness. There was no nausea no vomiting. Sent in for further evaluation. Unsure about his tetanus status. Related Data Home Medications ?Medication ?Instructions ?Recorded ?Confirmed CPAP #1 ea 12/03/20 06/20/24 Previous Rx's ?Medication ?Instructions ?Recorded gabapentin 600 mg tablet 600 mg PO DAILY 90 days #90 tabs 01/12/24 trazodone 100 mg tablet 100 mg PO BEDTIME 90 days #90 tabs 01/12/24 lisinopril 5 mg tablet 5 mg PO DAILY #90 tabs 01/17/24 simvastatin 40 mg tablet 40 mg PO BEDTIME #90 tabs 01/31/24 lactulose 20 gram/30 mL oral 20 g (30 mL) PO BID #2,880 mL 03/13/24 solution metformin 500 mg tablet 500 mg PO BID 90 days #180 tabs 04/24/24 fluticasone propionate 50 2 spray intranasal DAILY #3 ea 08/31/24 mcg/actuation nasal spray,suspension (Flonase Allergy Relief) mupirocin 2 % topical ointment 1 appl topical BID 2 weeks #22 11/08/24 grams semaglutide 2 mg/dose (8 mg/3 mL) 2 mg (0.75 mL) subcut QWEEK #3 ea 11/15/24 subcutaneous pen injector (Ozempic) cyclobenzaprine 10 mg tablet 10 mg PO TID PRN pain #14 tabs 12/15/24 Allergies Allergy/AdvReac Type Severity Reaction Status Date / Time terbinafine [From LAMISIL] AdvReac Intermediate GI UPSET Verified 12/15/24 14:22 Lamisil Allergy Unknown Stomach Uncoded 12/15/24 14:22 Upset Review of Systems 2 Review of Systems: Positive fall positive head injury PMFSH Past Medical History Attestation statement: The following information was validated with the patient. Medical History SOB (shortness of breath) on exertion Impacted cerumen of both ears Aortic dilatation Cholelithiasis Obstructive sleep apnea Erectile dysfunction Hypercholesterolemia Peripheral neuropathy Asthma Type 2 diabetes mellitus with hyperglycemia Chronic low back pain Hypertension Surgical History S/P ORIF (open reduction internal fixation) fracture History of left knee replacement History of total right knee replacement History of right hip replacement History of pericardiectomy H/O lumbar discectomy Family History Family History Mother Mental health disorder Social History Social History Housing: House Alcohol intake: current Alcohol intake frequency: a few times a week Comment: once a week 1 drinks Patient Tobacco Use Status: Former Tobacco user Tobacco use type: Cigarette Years Smoked: stopped 1995 Smoked in Last 30 Days: No e-Cigarette/Vaping Use: Never Used Second Hand Smoke Exposure: Yes Use of substances other than those prescribed or required for medical reasons: No Advance Directives: Yes Advance Directives on File: Yes Advance Directives Date on File: 12/26/21 Do you have a plan to hurt others: No Plan service: Yes Current occupational status: retired Cognitive needs: No Hearing needs: Yes Vision needs: Yes Physical Exam 2 Vital Signs: Vital Signs: Last Vital Signs Temp 98.2 F 12/15/24 14:20 Pulse 80 12/15/24 14:20 Resp 18 12/15/24 15:09 BP 131/62 12/15/24 14:20 Pulse Ox 96 12/15/24 14:20 O2 Del Method Room Air 12/15/24 14:20 BMI result Body Mass Index 40.7 Appearance: Alert. Oriented X3. No acute distress. Eyes: Pupils equal, round and reactive to light. ENT: Pharynx normal. Neck: Normal inspection. C-spine immobilized.No lymph nodes noted. No crepitus CVS: Normal heart rate and rhythm. Pulses normal. Normal S1 and S2 Respiratory: No respiratory distress. Breath sounds normal. No Wheezing. No rales . There is no cervical spine tenderness on palpation. Abdomen: Soft and nontender. No rigidity. No distention. good BS x4 Skin: Skin warm and dry. Normal skin color. Normal skin turgor. Extremities: No lower extremity edema. Neurovascular intact to all extremities. No Lacerations. No Rash Neuro: Oriented X 3. No motor deficit. No sensory deficit. Moving all extermities. No slurred speech. Medications Administered Discontinued Medications Generic Name Dose Route Start Last Admin Trade Name Abielq PRN Reason Stop Dose Admin Diphtheria/Tetanus/Acell Pertussis 0.5 ml 12/15/24 16:02 12/15/24 18:22 Diphth,Pertus(Acell),Tet Adult 0.5 Ml Syringe IM 12/15/24 16:03 0.5 ml .ONCE ONE Administration Medical Decision Making Lab Data 12/15/24 16:33 12/15/24 16:33 Labs: Lab Results 12/15/24 Range/Units 16:33 WBC 7.5 (4.8-10.8) X10*3/uL RBC 4.18 L (4.60-5.80) X10*6/uL Hgb 13.5 L (14.0-18.0) g/dl Hct 39.5 L (42.0-52.0) % MCV 94.5 (80.0-98.0) fL MCH 32.3 (27.0-33.0) pg MCHC 34.2 (31.0-36.0) g/dl RDW 12.8 (11.0-16.0) % Plt Count 173 (160-400) X10*3/uL MPV 9.4 (9.4-12.4) fL Immature Gran % (Auto) 0.3 (0.0-0.4) % Neut % (Auto) 72.5 (45-73) % Lymph % (Auto) 15.2 L (20-40) % Whitley % (Auto) 9.6 (2-11) % Eos % (Auto) 1.9 (0-4) % Baso % (Auto) 0.5 (0-2) % Lymph # (Auto) 1.1 L (1.2-4.9) X10*3/uL Whitley # (Auto) 0.7 (0.1-1.2) X10*3/uL Eos # (Auto) 0.1 (0.0-0.4) X10*3/uL Baso # (Auto) 0.0 (0.0-0.2) X10*3/uL Abs Immat Gran (auto) 0.02 (0.00-0.03) X10*3/uL Absolute Neuts (auto) 5.4 (2.0-8.3) x10*3/uL Absolute Nucleated RBC 0.000 (0.0-0.012) X10*3/uL Nucleated RBC % (auto) 0.0 (0.0-0.2) /100WBC Sodium 140 (135-145) mmol/L Potassium 4.6 (3.3-5.1) mmol/L Chloride 109 H (96-108) mmol/L Carbon Dioxide 26 (22-29) mmol/L Anion Gap 10 L (12-20) BUN 17 H (9-16) mg/dL Creatinine 1.23 (0.5-1.4) mg/dL Estim Creat Clear Calc 68.8 Estimated GFR 58 Random Glucose 124 H (60-115) mg/dL Calcium 8.6 (8.4-10.2) mg/dL Discharge Plan Discharge Clinical Impression: Head injury, Abrasion of face Patient Disposition: Home, Self-Care Instructions: Head Injury (ED), Abrasion (ED) Prescriptions: New cyclobenzaprine 10 mg tablet 10 mg PO TID PRN (Reason: pain) Qty: 14 0RF No Action trazodone 100 mg tablet 100 mg PO BEDTIME 90 Days Qty: 90 3RF lisinopril 5 mg tablet 5 mg PO DAILY Qty: 90 3RF simvastatin 40 mg tablet 40 mg PO BEDTIME Qty: 90 3RF metformin 500 mg tablet 500 mg PO BID 90 Days Qty: 180 3RF fluticasone propionate [Flonase Allergy Relief] 50 mcg/actuation spray,suspension 2 spray intranasal DAILY Qty: 3 3RF Rx Instructions: administer into each nostril Ozempic 2 mg/dose (8 mg/3 mL) pen injector 2 mg subcut QWEEK Qty: 3 3RF (DME) CPAP 0 .Route .MEDSUPPLY Qty: 1 lactulose 20 gram/30 mL solution 20 g PO BID Qty: 2880 3RF gabapentin 600 mg tablet 600 mg PO DAILY 90 Days Qty: 90 3RF mupirocin 2 % ointment 1 appl topical BID 14 Days Qty: 22 0RF Referrals: Po,Dainel Conrad MD [Primary Care Provider] - 12/19/24 Print Language: Indonesian
--- OUTSIDE RECORDS SUMMARY | 2024-12-15 16:11 | XMS_ITS ---
Author Organization [facility] Address [address] [place] [phone] Care Team Providers Care Grocery Sacker Name Role Phone Po Daniel THOMASON Primary Care Provider Mac Rose [phone] REASON FOR VISIT refill pantoprazole Encounters Encounter Location Date Provider Diagnosis [facility] [address] [place] [phone] 03/14/2024 Mac Garcia Plan Of Treatment No Information Progress Notes * VEE SAL RDOB:1950 (73 yo M)Acc No.[id number]:03/14/2024 Patient:?VEE SAL :1950???Age:73 Y???Sex:Male Address:[address] [place] [id number] * true * Date:? Generated for Brandyni silvano/Tequila/eTransmitting on:?12/15/2024 04:11 PM EDT
--- OUTSIDE RECORDS SUMMARY | 2024-12-15 16:11 | XMS_ITS | Encounter Summary ---
Author Name [facility] Organization [facility] Address [address] [place] [id number] Care Team Providers Care Otter Trawler Boatswain Name Role Phone ALECIA WOOD Primary Care [...] Patient's Relationship to Policy Cope RACHNA BCBS [facility] MEDICARE SUPPLEMEN BECCA PSEUD O MEDEX BRONZ E Jun 13, 2020 [id number] [phone] KAI SAL PATIENT [place] SUPPLEMEN BECCA MEDEX BRONZ E Jun 13, 2020 [id number] KAI SAL LD PATIENT MEDICARE (WNR) MEDICARE (M) PART A Jun 13, 2020 PART A [id number] [phone] KAI SAL LD PATIENT MEDICARE (WNR) MEDICARE (M) PART B Jun 13, 2020 PART B [id number] KAI SAL LD PATIENT MEDICARE (WNR) MEDICARE (M) PART A Jun 13, 2012 PART A [id number] KAI SAL PATIENT MEDICARE (WNR) MEDICARE (M) PART B Jun 13, 2012 PART B [id number] KAI SAL PATIENT MEDICARE (WNR) MEDICARE () PART B Jun 13, 2012 PART B [id number] KAI SAL PATIENT MEDICARE (WNR) MEDICARE () PART A Jun 13, 2012 PART A [id number] KAI SAL PATIENT Selected Encounter This section includes the information on record at OR for the Encounter. Date/Time Encounter Type Encounter Description Reason Provider Source Dec 23, 2023 09:00 AM COMPRE OPH EXAM EST PT 1/> OPTOMETRY ICD-10-CM E11.9 Type 2 diabetes mellitus without complications CASSANDRA LOWRY Vlad Encounter Template Text not used by OR Assessments - Encounter Diagnoses This section includes the primary and secondary diagnoses documented for the Encounter. Date/Time Primary/Secondary Diagnosis Diagnosis Name Provider Source Dec 23, 2023 10:10 AM PRIMARY Type 2 diabetes mellitus without complications CASSANDRA LOWRY [facility] [place] [facility] Dec 23, 2023 10:10 AM SECONDARY Combined forms of age-related cataract, bilateral CASSANDRA LOWRY [facility] [place] [facility] Dec 23, 2023 10:10 AM SECONDARY Dry eye syndrome of bilateral lacrimal glands CASSANDRA LOWRY [facility] [place] [facility] Dec 23, 2023 10:10 AM SECONDARY Macular cyst, hole, or pseudohole, left eye CASSANDRA LOWRY [facility] [place] [facility] Dec 23, 2023 10:10 AM SECONDARY Macular cyst, hole, or pseudohole, right eye ESSENCECASSANDRA BAKER [facility] [place] [facility] Dec 23, 2023 10:10 AM SECONDARY Open angle with borderline findings, low risk, bilateral CASSANDRA LOWRY [facility] [place] [facility] Dec 23, 2023 10:10 AM SECONDARY Puckering of macula, bilateral CASSANDRA LOWRY [facility] [place] [facility] Plan of Treatment: Future Appointments (+ 6 months) and Future Tests (+/- 45 days) The Plan of Treatment section includes future care activities for the patient from all [facility]. This section includes future appointments and future orders which are active, pending or scheduled. Future Appointments This section includes appointments that were scheduled to occur 6 months from the date of the Encounter, up to a maximum of 20 appointments. The data comes from all OR treatment facilities. Appointment Date/Time Appointment Type Appointme nt Facility Name Feb 14, 2024 08:30 AM AMBULATORY - MEDICINE [place] [facility] [place] [facility] Social History: Smoking Status (Most current) and Tobacco Use (All prior to encounter date) This section includes the most current, and the historical, smoking and tobacco- related health factors from the OR facility where the Encounter took place. Current Smoking Status This section includes the most current smoking, or tobacco-related health factor, from the OR facility where the Encounter took place. Date/Time Current Smoking Status Comment [facility] Feb 12, 2023 08:30 AM VA-TOBACCO FORMER USER [place] [facility] [place] [facility] Tobacco Use History This section includes a history of the smoking, or tobacco-related health factors, that were collected on or before the date of the Encounter. The data comes from the OR facility where the Encounter took place. Date/Time Smoking Status/Tobac co Use Comment Facility Feb 12, 2023 08:30 AM VA-TOBACCO QUIT 15 YRS OR MORE [facility] [place] [facility] Feb 13, 2022 08:00 AM VA-TOBACCO FORMER USER [facility] [place] [facility] Feb 13, 2022 08:00 AM VA-TOBACCO QUIT 15 YRS OR MORE [facility] [place] [facility] Feb 11, 2021 08:00 AM VA-TOBACCO FORMER USER [facility] [place] [facility] Feb 11, 2021 08:00 AM VA-TOBACCO QUIT 15 YRS OR MORE [facility] [place] [facility] Dec 22, 2019 11:00 AM VA-TOBACCO FORMER USER [facility] [place] [facility] Dec 22, 2019 11:00 AM VA-TOBACCO QUIT 15 YRS OR MORE [facility] [place] [facility] Feb 17, 2018 08:26 AM VA-TOBACCO NEVER USED OR [facility] [place] [facility] Feb 17, 2018 07:48 AM LIFETIME NON-TOBACCO USER [facility] Mar 02, 2016 08:05 AM QUIT TOBACCO USE > 7 YEARS AGO PT STATES HE STOPEED 20 YRS AGO. [facility] Apr 18, 2010 10:21 AM QUIT TOBACCO USE > 7 YEARS AGO [facility] Advance Directives: All historical and current Section Date Range: From patient's date of to the date document was created. This section includes ALL of a patient's completed or amended OR Advance and Rescinded Directives. The entries below indicate that a directive exists for the patient, but an actual copy is not included with this document. The data comes from all OR facilities. Date Advance Directives Provider Source Feb 18, 2024 ADVANCE DIRECTIVE ALECIA WOOD [facility] Encounter Notes: All associated encounter notes This section contains the clinical notes associated to the Encounter. Date/Time Encounter Note(s) Provider Source Dec 23, 2023 09:52 AM OPTOMETRY NOTE: LOCAL TITLE: OPTOMETRY NOTE STANDARD TITLE: OPTOMETRY NOTE DATE OF NOTE: DEC 23, 2023@09:52 ENTRY DATE: DEC 23, 2023@09:53:02 AUTHOR: MARIANN LOWRY EXP COSIGNER: URGENCY: STATUS: COMPLETED I saw this [...] right I followed in the past by [place] [facility], bilateral cataracts as well as [...] of active outpatient prescriptions dispensed from this OR (local) and dispensed from another OR or [facility] facility (remote) as well as inpatient orders [...] Remote Allergy/ADR Data available for this patient [facility] [place] [facility] No Known Allergies Med. Reconciliation (Tool #1) INCLUDED IN THIS LIST: Alphabetical list of active outpatient prescriptions dispensed from this OR (local) and dispensed from another OR or [facility] facility (remote) as well as inpatient orders (local pending and active), local clinic medications, locally documented non-VA medications, and local prescriptions that have or been discontinued in the past 90 days. Non-VA Meds Last Documented On: Feb 11, 2021 NOTE The display of VA prescriptions dispensed from another OR or [facility] facility (remote) is limited to active outpatient prescription entries matched to National Drug File at the originating site and may not include some items such as investigational drugs, compounds, etc. NOT INCLUDED IN THIS LIST: Medications self-entered by the patient into personal health records (i.e. [employer]) are NOT included in this list. Non-VA medications documented outside this OR, remote inpatient orders (regardless of status) and remote clinic medications are NOT included in this list. The patient and provider must always discuss medications the patient is taking, regardless of where the medication was dispensed or obtained. Non-VA METFORMIN HCL TAB,ORAL TAKE BY MOUTH TWICE DAILY Non-VA medication not recommended by VA provider. Non-VA SIMVASTATIN 20MG TAB TAKE ONE-HALF TABLET BY MOUTH AT BEDTIME Patient wants to buy from Non-OR pharmacy. Medication prescribed by Non-OR provider. SUPPLIES PHARMACY TERMS AND POSSIBLE PATIENT ACTIONS INPT = OR inpatient order IV = OR intravenous medication OUTPT = OR outpatient prescription PHARMACY POSSIBLE PATIENT TERMS EXPLANATION ACTIONS -------- --- ACTIVE A prescription that can be If you have refills, filled at the local OR pharmacy. you may request a refill of this prescription from your OR pharmacy. CLINIC A medication you received during If you have questions a visit to a OR clinic or about this medication emergency department. contact your OR healthcare team. DISCONTINUED A prescription your provider has Contact your OR stopped. It is no longer healthcare team if you available to be sent to you or need more of this picked up at the OR pharmacy medication. window. A prescription which is [...] the VA. Or, it may be an wppo-jle-ntkaggk (OTC), herbal, dietary supplements or sample medication. [...] An active prescription that is Contact your OR not scheduled to be filled yet. pharmacy if you need You should receive it before this medication now. you run out. ======== Declines printed copy of medication list now /leodan/ Mariann Lowry OD CHIEF OF OPTOMETRY Signed: 12/23/2023 10:10 MARIANN LOWRY [facility] [place] [facility] Dec 23, 2023 08:57 AM OPTOMETRY NOTE: LOCAL TITLE: OPTOMETRY NOTE STANDARD TITLE: OPTOMETRY NOTE DATE OF NOTE: DEC 23, 2023@08:57 ENTRY DATE: DEC 23, 2023@08:57:48 AUTHOR: SONU MAR EXP COSIGNER: MARIANN LOWRY URGENCY: STATUS: COMPLETED Active problems - Computerized Problem List is the source for the followin. Hypercholesterolemia 2. Diabetes Mellitus Type 2 ([facility] [id number]) 3. Impaired fasting glucose 4. Impaired fasting glycaemia ([facility] [id number]) 5. Tremor 6. Disc Disease Active Outpatient [...] needed at this time - [facility] or prn 5. Dry [...] Cosigned: 12/24/2023 09:05 SONU MAR [facility]
--- OUTSIDE RECORDS SUMMARY | 2024-12-15 16:11 | XMS_ITS | Patient Health Record ---
Author Organization [facility] Address [address] [place] [id number] Care Team Providers Care Integration Project Manager Name Role Phone Daniel Romano MD Primary Care Provider Mac Rose [phone] Allergies Allergen (clinical drug ingredient) Drug/Non Drug [...] Problem Status W/U Status Risk Notes Problem [id number] Encounter for screening for malignant neoplasm of colon (Z12.11) Active confirmed Problem 734493141 Aspirin long-term use (Z79.82) Active confirmed Problem [id number] Hypertension, unspecified type (I10) Active confirmed Encounters Encounter Location Date Provider Diagnosis [facility] [address] [place] [address] 03/14/2024 Mac Garcia Plan Of Treatment Future Test Test Name Order Date COLONOSCOPY 12/30/2017 Insurance Providers Payer Name Payer Address Payer Phone Subscriber Number Group Number Insured Name Patient Relationship to Insured Coverage Start Date Coverage End Date MEDICARE OF [place] [address] [place] [id number] [phone] [id number] VEE SAL Self - patient is the insured MEDICAID OF [facility] [address] [place] [address] [id number] VEE SAL Self - patient is the insured Medical (General) History Medical History History ICD Code Denies CA,CVA,renal disease COPD NIDDM Neuropathy in feet Sleep apnea--uses CPAP Negative colonoscopies in 31 12 and 2006 other than diverticulosis and internal hemorrhoids Surgical History Surgery Date(Month/Year) Left knee replacement 2016 Right knee replacement 2014 Right hip replacement 2014 Metal plates due to femur surgery 2016 Pericarditis with pericardectomy in the Rectal fistula Lumbar disc
--- OUTSIDE RECORDS SUMMARY | 2024-12-15 16:11 | XMS_ITS | Continuity of Care Document ---
Author Name [facility] Organization [facility] Care Team Providers Care Chute Greaser Name Role Phone [facility] Unavailable Unavailable Problems Combined list of problems from 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 It does not include entries that were removed or entered in error. Problem Status Onset Date Problem Type Date of Resolution Comments Source Hypercholesterolemia Active 019 Condition Feb 14, 2019 Entered By: ALECIA WOOD Comment: treated with medication [facility] Impaired fasting glycaemia (SNOMED [place] [id number]) Active 014 Condition [facility] Tremor Active 010 Condition [facility] Disc Disease Active 009 Condition [facility] Diabetes Mellitus Type 2 ([facility] [id number]) Active Condition [facility] [...] FOR DRY EYE OPHTHA LMIC ACTIVE 12/23/2024 [id number] Rocky LOWRY 2023 15 [facility] [...] Site Reaction Lot Number CVX Code Drug Key Account Manager Status Comments Source INFLUENZA, UNSPECIFIED FORMULATION 2021 88 complet ed [facility] COVID-19 (PFIZER), MRNA, LNP-S, PF, 30 MCG/0.3 ML DOSE 3 2020 208 complet ed [facility] COVID-19 (PFIZER), MRNA, LNP-S, PF, 30 MCG/0.3 ML DOSE 2 2020 208 complet ed Lot#: [id number] [facility] COVID-19 (PFIZER), MRNA, LNP-S, PF, 30 MCG/0.3 ML DOSE 1 2020 208 complet ed Lot#: [id number] [facility] INFLUENZA, [...] Reference Range Date Interpretation Specimen Comments Source LIVER FUNCTION PROTEIN [MASS/VOLU ME] IN SERUM OR PLASMA 6.0 g/dL 6.0 - 8.3 02/07 Specimen Type: SERUM No comment entered. Ordering Provider: LATRICIA WOOD Report Released Date/Time: February 06, 2024 07:32 PM Reporting Lab: [facility] [address] [address] Performing Lab: [facility] [address] [facility] [address] [place] [facility] [place] [facility] LIVER FUNCTION ALBUMIN [MASS/VOLU ME] IN SERUM OR PLASMA 3.7 g/dL 3.5 - 5.0 02/07 Specimen Type: SERUM No comment entered. Ordering Provider: LATRICIA WOOD Report Released Date/Time: February 06, 2024 07:32 PM Reporting Lab: [facility] [facility] [address] [address] Performing Lab: [facility] [place] [facility] [address] [address] [facility] LIVER FUNCTION ALKALINE PHOSPHATAS E [ENZYMATIC ACTIVITY/V OLUME] IN SERUM OR PLASMA 41 U/L 40 - 150 02/07 Specimen Type: SERUM No comment entered. Ordering Provider: LATRICIA WOOD Report Released Date/Time: February 06, 2024 07:32 PM Reporting Lab: [facility] [place] [facility] [address] [facility] [facility] [facility] [address] Performing Lab: [facility] [place] [address] [address] [place] [facility] [place] [facility] LIVER FUNCTION ASPARTATE AMINOTRANS FERASE [ENZYMATIC ACTIVITY/V OLUME] IN SERUM OR PLASMA 18 U/L 5 - 34 02/07 Specimen Type: SERUM No comment entered. Ordering Provider: LATRICIA WOOD Report Released Date/Time: February 06, 2024 07:32 PM Reporting Lab: [facility] [address] [address] Performing Lab: [facility] [place] [facility] [address] [facility] [address] [facility] LIVER FUNCTION ALANINE AMINOTRANS FERASE [ENZYMATIC ACTIVITY/V OLUME] IN SERUM OR PLASMA 21 U/L 02/07 Specimen Type: SERUM No comment entered. Ordering Provider: LATRICIA WOOD Report Released Date/Time: February 06, 2024 07:32 PM Reporting Lab: [facility] [place] [facility] [address] [facility] [facility] [address] Performing Lab: [facility] [place] [facility] [address] [address] [facility] LIVER FUNCTION BILIRUBIN. TOTAL [MASS/VOLU ME] IN SERUM OR PLASMA 0.8 mg/dL 0.2 - 1.2 02/07 Specimen Type: SERUM No comment entered. Ordering Provider: LATRICIA WOOD Report Released Date/Time: February 06, 2024 07:32 PM Reporting Lab: [facility]ITAL[facility]PITALTRN [facility]ITALUSE[address] [address] Performing Lab: [facility]ITALRL [facility]ITALUSE[address] [address] [facility]ITALR[facility]ST[facility] HOSPITALTRN [facility] BASIC METABOLI C PANEL (fasting ) UREA NITROGEN [MASS/VOLU ME] IN SERUM OR PLASMA 14 mg/dL 7 - 25 02/07 Specimen Type: SERUM No comment entered. Ordering Provider: LATRICIA WOOD Report Released Date/Time: February 06, 2024 07:32 PM Reporting Lab: [facility]ITALRATHENS-LIMESTONE HOSPITALTRN [facility]ITALUSE[address] [address] Performing Lab: [facility]ITALRL [facility]ITALUSE[address] [address] [facility]ITALR[facility]-LIMEST[facility] HOSPITALTRN [facility]ITALUSE [facility] BASIC METABOLI C PANEL (fasting ) GLUCOSE [MASS/VOLU ME] IN SERUM OR PLASMA 126 mg/dL 65 - 100 02/07 H Specimen Type: SERUM No comment entered. Ordering Provider: LATRICIA WOOD Report Released Date/Time: February 06, 2024 07:32 PM Reporting Lab: [facility]ITAL[facility]N [place] [address] [address] Performing Lab: [facility]ITALRL W[facility]N [facility]PITALUSETS [address] [address] [facility]ITALRL TRN [facility]ITALUSE [facility] BASIC METABOLI C PANEL (fasting ) SODIUM [MOLES/VOL UME] IN SERUM OR PLASMA 140 mmol/L 135 - 145 02/07 Specimen Type: SERUM No comment entered. Ordering Provider: LATRICIA WOOD Report Released Date/Time: February 06, 2024 07:32 PM Reporting Lab: [facility]ITALRATHENS-LIMESTONE HOSPITALTRN [facility]ITALUSE[address] [address] Performing Lab: [facility]ITAL[facility] [place] [facility] [address] [address] [facility]ITALRL [facility] [place] [facility] BASIC METABOLI C PANEL (fasting ) POTASSIUM [MOLES/VOL UME] IN SERUM OR PLASMA 4.9 mmol/L 3.5 - 5.0 02/07 Specimen Type: SERUM No comment entered. Ordering Provider: LATRICIA WOOD Report Released Date/Time: February 06, 2024 07:32 PM Reporting Lab: [facility]ITALRL [facility] [place] [facility] [address] [address] Performing Lab: [facility]ITALR WSTRN [facility]OSPITALUSETS [facility] [address] [address] [facility]ITALRATHENS-LIMESTONE HOSPITALTRN [facility]ITALUSE [facility] BASIC METABOLI C PANEL (fasting ) CHLORIDE [MOLES/VOL UME] IN SERUM OR PLASMA 105 mmol/L 100 - 110 02/07 Specimen Type: SERUM No comment entered. Ordering Provider: LATRICIA WOOD Report Released Date/Time: February 06, 2024 07:32 PM Reporting Lab: [facility]ITALRL [facility] [place] [facility] [address] [address] Performing Lab: [facility]ITALRL [facility] [place] [address] [address] [facility]ITALRATHENS-LIMESTONE HOSPITALTRN MASSUSE [facility] BASIC METABOLI C PANEL (fasting ) CARBON DIOXIDE, TOTAL [MOLES/VOL UME] IN SERUM OR PLASMA 25 meq/L 20 - 30 02/07 Specimen Type: SERUM No comment entered. Ordering Provider: LATRICIA WOOD Report Released Date/Time: February 06, 2024 07:32 PM Reporting Lab: [facility]ITAL[facility] [place] [facility] [address] [address] Performing Lab: [facility]ITALRL W[facility]N [place] [address] [address] [facility]ITALRATHENS-LIMESTONE HOSPITALTRN [facility] BASIC METABOLI C PANEL (fasting ) CREATININE [MASS/VOLU ME] IN SERUM OR PLASMA 1.10 mg/dL 0.50 - 1.40 02/07 Specimen Type: SERUM No comment entered. Ordering Provider: LATRICIA WOOD Report Released Date/Time: February 06, 2024 07:32 PM Reporting Lab: [facility] [place] [facility] [address] [address] Performing Lab: [facility] [place] [facility] [address] [address] [facility] [place] [facility] BASIC METABOLI C PANEL (fasting ) GLOMERULAR FILTRATION RATE/1.73 SQ M.PREDICTE D [VOLUME RATE/AREA] IN SERUM, PLASMA OR BLOOD BY CREATININE -BASED FORMULA (CKD-EPI 2020) 70 mL/min 60 02/07 Specimen Type: SERUM No comment entered. Ordering Provider: LATRICIA WOOD Report Released Date/Time: February 06, 2024 07:32 PM Reporting Lab: [facility] [place] [facility] [address] [facility] [address] Performing Lab: [place] [facility] [place] [facility] [address] [address] [facility] [place] [facility] CBC AND DIFF (AUTO) LEUKOCYTES [#/VOLUME] IN BLOOD BY AUTOMATED COUNT 6.68 10*3/uL 4.50 - 11.00 02/07 Specimen Type: BLOOD No comment entered. Ordering Provider: LATRICIA WOOD Report Released Date/Time: February 06, 2024 07:32 PM Reporting Lab: [facility] [place] [facility] [address] [facility] [facility] [address] Performing Lab: [facility] [place] [facility] [address] [facility] [address] [facility] [place] [facility] CBC AND DIFF (AUTO) ERYTHROCYT ES [#/VOLUME] IN BLOOD BY AUTOMATED COUNT 4.23 10*6/uL 4.23 - 5.66 02/07 Specimen Type: BLOOD No comment entered. Ordering Provider: LATRICIA WOOD Report Released Date/Time: February 06, 2024 07:32 PM Reporting Lab: [facility] [place] [facility] [address] [facility] [address] Performing Lab: [facility] [place] [facility] [address] [address] [facility] [place] [facility] CBC AND DIFF (AUTO) HEMOGLOBIN [MASS/VOLU ME] IN BLOOD 13.7 g/dL 12.8 - 17 02/07 Specimen Type: BLOOD No comment entered. Ordering Provider: LATRICIA WOOD Report Released Date/Time: February 06, 2024 07:32 PM Reporting Lab: [place] [facility] [place] [facility] [address] [address] Performing Lab: [place] [facility] [place] [facility] [address] [address] [place] [facility] [place] [facility] CBC AND DIFF (AUTO) HEMATOCRIT [VOLUME FRACTION] OF BLOOD BY AUTOMATED COUNT 40.4 39.2 - 50.4 02/07 Specimen Type: BLOOD No comment entered. Ordering Provider: LATRICIA WOOD Report Released Date/Time: February 06, 2024 07:32 PM Reporting Lab: [place] [facility] [place] [facility] [address] [facility] [address] Performing Lab: [place] [facility] [place] [facility] [address] [address] [facility]RL [facility] [place] [facility] CBC AND DIFF (AUTO) MCV [ENTITIC VOLUME] BY AUTOMATED COUNT 95.5 fL 82 - 99 02/07 Specimen Type: BLOOD No comment entered. Ordering Provider: LATRICIA WOOD Report Released Date/Time: February 06, 2024 07:32 PM Reporting Lab: [place] [facility] [place] [facility] [address] [address] Performing Lab: [place] [facility] [place] [facility] [address] [address] [facility] [place] [facility] CBC AND DIFF (AUTO) MCHC [MASS/VOLU ME] BY AUTOMATED COUNT 33.9 g/dL 30.8 - 35.1 02/07 Specimen Type: BLOOD No comment entered. Ordering Provider: LATRICIA WOOD Report Released Date/Time: February 06, 2024 07:32 PM Reporting Lab: [place] [facility] [place] [facility] [address] [facility] [address] Performing Lab: [place] [facility] [place] [address] [place] [address] [place] [facility] [facility] CBC AND DIFF (AUTO) PLATELETS [#/VOLUME] IN BLOOD BY AUTOMATED COUNT 196 10*3/uL 140 - 360 02/07 Specimen Type: BLOOD No comment entered. Ordering Provider: LATRICIA WOOD Report Released Date/Time: February 06, 2024 07:32 PM Reporting Lab: [place] [facility] [place] [facility] [address] [address] Performing Lab: [place] [facility] [place] [facility] [address] [address] [facility] [place] [facility] CBC AND DIFF (AUTO) ERYTHROCYT E DISTRIBUTI ON WIDTH [RATIO] BY AUTOMATED COUNT 12.6 12.0 - 16.0 02/07 Specimen Type: BLOOD No comment entered. Ordering Provider: LATRICIA WOOD Report Released Date/Time: February 06, 2024 07:32 PM Reporting Lab: [place] [facility] [place] [facility] [address] [facility] [facility] [address] Performing Lab: [place] [facility] [place] [address] [address] [place] [facility] [place] [facility] CBC AND DIFF (AUTO) MONOCYTES [#/VOLUME] IN BLOOD BY AUTOMATED COUNT 0.73 10*3/uL 0.30 - 1.10 02/07 Specimen Type: BLOOD No comment entered. Ordering Provider: LATRICIA WOOD Report Released Date/Time: February 06, 2024 07:32 PM Reporting Lab: [place] [facility] [place] [facility] [address] [facility] [facility] [address] Performing Lab: [place] [facility] [facility] [address] [address] [place] [facility] [facility] CBC AND DIFF (AUTO) MCH [ENTITIC MASS] BY AUTOMATED COUNT 32.4 pg 26.2 - 32.6 02/07 Specimen Type: BLOOD No comment entered. Ordering Provider: LATRICIA WOOD Report Released Date/Time: February 06, 2024 07:32 PM Reporting Lab: [place] [facility] [facility] [address] [facility] [facility] [address] Performing Lab: [facility] [address] [facility] [facility] [address] [facility] [place] [facility] CBC AND DIFF (AUTO) NEUTROPHIL S/100 LEUKOCYTES IN BLOOD BY AUTOMATED COUNT 68.4 43.7 - 75.8 02/07 Specimen Type: BLOOD No comment entered. Ordering Provider: LATRICIA WOOD Report Released Date/Time: February 06, 2024 07:32 PM Reporting Lab: [facility] [address] [facility] [facility] [address] Performing Lab: [facility] [address] [facility] [facility] [address] [facility] [place] [facility] CBC AND DIFF (AUTO) LYMPHOCYTE S/100 LEUKOCYTES IN BLOOD BY AUTOMATED COUNT 16.6 14.0 - 42.3 02/07 Specimen Type: BLOOD No comment entered. Ordering Provider: LATRICIA WOOD Report Released Date/Time: February 06, 2024 07:32 PM Reporting Lab: [facility] [address] [facility] [facility] [address] Performing Lab: [facility] [address] [facility] [facility] [address] [facility] [place] CBC AND DIFF (AUTO) MONOCYTES/ 100 LEUKOCYTES IN BLOOD BY AUTOMATED COUNT 10.9 5.1 - 13.7 02/07 Specimen Type: BLOOD No comment entered. Ordering Provider: LATRICIA WOOD Report Released Date/Time: February 06, 2024 07:32 PM Reporting Lab: [facility] [address] [facility] [facility] [address] Performing Lab: [facility] [address] [facility] [address] [facility] [place] CBC AND DIFF (AUTO) EOSINOPHIL S/100 LEUKOCYTES IN BLOOD BY AUTOMATED COUNT 3.1 0.4 - 6.8 02/07 Specimen Type: BLOOD No comment entered. Ordering Provider: LATRICIA WOOD Report Released Date/Time: February 06, 2024 07:32 PM Reporting Lab: [facility] [address] [facility] [facility] [address] Performing Lab: [facility] [address] [facility] [address] [facility] [place] CBC AND DIFF (AUTO) BASOPHILS/ 100 LEUKOCYTES IN BLOOD BY AUTOMATED COUNT 0.7 0.1 - 2.0 02/07 Specimen Type: BLOOD No comment entered. Ordering Provider: LATRICIA WOOD Report Released Date/Time: February 06, 2024 07:32 PM Reporting Lab: [facility] [address] [facility] [facility] [address] Performing Lab: [facility] [address] [facility] [address] [facility] [place] [facility] CBC AND DIFF (AUTO) NEUTROPHIL S [#/VOLUME] IN BLOOD BY AUTOMATED COUNT 4.56 10*3/uL 2.20 - 7.60 02/07 Specimen Type: BLOOD No comment entered. Ordering Provider: LATRICIA WOOD Report Released Date/Time: February 06, 2024 07:32 PM Reporting Lab: [facility] [address] [facility] [facility] [address] Performing Lab: [facility] [address] [facility] [facility] [address] [facility] [place] [facility] CBC AND DIFF (AUTO) LYMPHOCYTE S [#/VOLUME] IN BLOOD BY AUTOMATED COUNT 1.11 10*3/uL 1.00 - 3.20 02/07 Specimen Type: BLOOD No comment entered. Ordering Provider: LATRICIA WOOD Report Released Date/Time: February 06, 2024 07:32 PM Reporting Lab: [facility] [address] [facility] [facility] [address] Performing Lab: [facility] [address] [facility] [facility] [address] [facility] [place] [facility] CBC AND DIFF (AUTO) EOSINOPHIL S [#/VOLUME] IN BLOOD BY AUTOMATED COUNT 0.21 10*3/uL 0.03 - 0.44 02/07 Specimen Type: BLOOD No comment entered. Ordering Provider: LATRICIA WOOD Report Released Date/Time: February 06, 2024 07:32 PM Reporting Lab: [facility] [place] [facility] [address] [facility] [facility] [address] Per[facility] Lab: [place] [facility] [address] [address] [facility] [place] [facility] CBC AND DIFF (AUTO) BASOPHILS [#/VOLUME] IN BLOOD BY AUTOMATED COUNT 0.05 10*3/uL 0.01 - 0.13 02/07 Specimen Type: BLOOD No comment entered. Ordering Provider: LATRICIA WOOD Report Released Date/Time: February 06, 2024 07:32 PM Reporting Lab: [place] [facility] [place] [address] [address] Performing Lab: [place] [facility] [address] [address] [place] [facility] [place] [facility] CBC AND DIFF (AUTO) IMMATURE GRANULOCYT ES/100 LEUKOCYTES IN BLOOD BY AUTOMATED COUNT 0.3 0.0 - 0.7 02/07 Specimen Type: BLOOD No comment entered. Ordering Provider: LATRICIA WOOD Report Released Date/Time: February 06, 2024 07:32 PM Reporting Lab: [place] [facility] [place] [address] [address] Performing Lab: [place] [facility] [place] [address] [address] [place] [facility] CBC AND DIFF (AUTO) IMMATURE GRANULOCYT ES [#/VOLUME] IN BLOOD 0.02 10*3/uL 0.00 - 0.06 02/07 Specimen Type: BLOOD No comment entered. Ordering Provider: LATRICIA WOOD Report Released Date/Time: February 06, 2024 07:32 PM Reporting Lab: [place] [facility] [address] [address] Performing Lab: [place] [facility] [address] [address] [place] [facility] [facility] TSH THYROTROPI N [UNITS/VOL UME] IN SERUM OR PLASMA 1.39 u[IU]/mL 0.35 - 5.00 02/07 Specimen Type: SERUM No comment entered. Ordering Provider: LATRICIA WOOD Report Released Date/Time: February 06, 2024 07:32 PM Reporting Lab: [place] [facility] [place] [facility] [address] [facility] [facility] [address] Performing Lab: [place] [facility] [place] [facility] [address] [facility] [facility] [address] [place] [facility] [place] [facility] LIPID PANEL FASTING CHOLESTERO L [MASS/VOLU ME] IN SERUM OR PLASMA 162 mg/dL 02/07 Specimen Type: SERUM No comment entered. Ordering Provider: LATRICIA WOOD Report Released Date/Time: February 06, 2024 07:32 PM Reporting Lab: [place] [facility] [place] [facility] [address] [facility] [facility] [address] Performing Lab: [place] [facility] [facility] [address] [facility] [facility] [address] [facility] [place] [facility] LIPID PANEL FASTING TRIGLYCERI DE [MASS/VOLU ME] IN SERUM OR PLASMA 112 mg/dL 0 - 150 02/07 Specimen Type: SERUM No comment entered. Ordering Provider: LATRICIA WOOD Report Released Date/Time: February 06, 2024 07:32 PM Reporting Lab: [place] [facility] [facility] [address] [facility] [facility] [address] Performing Lab: [place] [facility] [place] [facility] [address] [facility] [facility] [address] [place] [facility] [facility] [facility] LIPID PANEL FASTING CHOLESTERO L IN LDL [MASS/VOLU ME] IN SERUM OR PLASMA BY CALCULATIO N 98 mg/dL 0 - 129 02/07 Specimen Type: SERUM No comment entered. Ordering Provider: LATRICIA WOOD Report Released Date/Time: February 06, 2024 07:32 PM Reporting Lab: [place] [facility] [facility] [address] [facility] [facility] [address] Performing Lab: [place] [facility] [facility] [address] [facility] [address] [facility]ITALRL TRN [facility]ITALUSE [facility] LIPID PANEL FASTING CHOLESTERO L.TOTAL/CH OLESTEROL IN HDL [MASS RATIO] IN SERUM OR PLASMA 3.9 02/07 Specimen Type: SERUM No comment entered. Ordering Provider: LATRICIA WOOD Report Released Date/Time: February 06, 2024 07:32 PM Reporting Lab: [place] [facility] [address] [facility] [facility] [address] Performing Lab: [facility]ITALRL TRN [facility]ITALUSE[facility] [address] [address] [facility]ITALRUSA [facility]ALTH PROVID[facility]ITALN [facility] LIPID PANEL FASTING CHOLESTERO L IN HDL [MASS/VOLU ME] IN SERUM OR PLASMA 42 mg/dL 40 - 60 02/07 Specimen Type: SERUM No comment entered. Ordering Provider: LATRICIA WOOD Report Released Date/Time: February 06, 2024 07:32 PM Reporting Lab: [facility]ITAL[facility] [address] [facility] [address] [address] Performing Lab: [facility]ITALRL TRN [facility]ITALUSEG[facility] [address] [facility] [address] [facility]ITALUSE [facility] HEMOGLOB IN A1C PANEL [...] February 06, 2024 07:32 PM Reporting Lab: [facility]PITALRUSA [facility]PITALN [facility] [address] [facility] [facility] [address] Performing Lab: [facility] [address] [address] [place] [facility] [place] [facility] MICROALB UMIN CREATINI NE RATIO PANEL MICROALBUM IN/CREATIN INE [MASS RATIO] IN URINE 12.9 mg/g 0 - 29.9 02/07 Specimen Type: URINE No comment entered. Ordering Provider: LATRICIA WOOD Report Released Date/Time: February 06, 2024 07:32 PM Reporting Lab: [place] [facility] [place] [facility] [address] [address] Performing Lab: [place] [facility] [place] [facility] [address] [address] [facility] [facility] MICROALB UMIN CREATINI NE RATIO PANEL MICROALBUM IN [MASS/VOLU ME] IN URINE 1.4 mg/dL 02/07 Specimen Type: URINE No comment entered. Ordering Provider: LATRICIA WOOD Report Released Date/Time: February 06, 2024 07:32 PM Reporting Lab: [place] [facility] [place] [place] [address] [address] Performing Lab: [place] [facility] [place] [address] [address] [facility] MICROALB UMIN CREATINI NE RATIO PANEL CREATININE [MASS/VOLU ME] IN URINE 108.66 mg/dL 02/07 Specimen Type: URINE No comment entered. Ordering Provider: LATRICIA WOOD Report Released Date/Time: February 06, 2024 07:32 PM Reporting Lab: [place] [facility] [place] [address] [address] Performing Lab: [place] [facility] [place] [address] [address] [facility] [facility] URINALYS IS CLEAN CATCH COLOR OF URINE Light-Ye llow 02/07 Specimen Type: URINE Comment: If Glucose = >500 and Ketones are positive, please alert the Physician. Ordering Provider: LATRICIA WOOD Report Released Date/Time: February 06, 2024 07:32 PM Reporting Lab: [place] [facility] [place] [address] [address] Performing Lab: [place] [facility] [place] [facility] [address] [address] [facility] [place] [facility] URINALYS IS CLEAN CATCH APPEARANCE OF URINE Clear 02/07 Specimen Type: URINE Comment: If Glucose = >500 and Ketones are positive, please alert the Physician. Ordering Provider: LATRICIA WOOD Report Released Date/Time: February 06, 2024 07:32 PM Reporting Lab: [place] [facility] [place] [facility] [address] [address] Performing Lab: [place] [facility] [place] [facility] [address] [address] [place] [facility] [facility] [facility] URINALYS IS CLEAN CATCH GLUCOSE [MASS/VOLU ME] IN URINE NEGATIVE mg/dL 02/07 Specimen Type: URINE Comment: If Glucose = >500 and Ketones are positive, please alert the Physician. Ordering Provider: LATRICIA WOOD Report Released Date/Time: February 06, 2024 07:32 PM Reporting Lab: [place] [facility] [place] [facility] [address] [address] Performing Lab: [place] [facility] [place] [facility] [address] [address] [facility] [place] [facility] URINALYS IS CLEAN CATCH KETONES [MASS/VOLU ME] IN URINE BY TEST STRIP NEGATIVE mg/dL 02/07 Specimen Type: URINE Comment: If Glucose = >500 and Ketones are positive, please alert the Physician. Ordering Provider: LATRICIA WOOD Report Released Date/Time: February 06, 2024 07:32 PM Reporting Lab: [place] [facility] [place] [facility] [address] [address] Performing Lab: [place] [facility] [facility] [address] [address] [place] [facility] [place] [facility] URINALYS IS CLEAN CATCH ERYTHROCYT ES [PRESENCE] IN URINE SEDIMENT BY LIGHT MICROSCOPY NEGATIVE mg/dL 02/07 Specimen Type: URINE Comment: If Glucose = >500 and Ketones are positive, please alert the Physician. Ordering Provider: LATRICIA WOOD Report Released Date/Time: February 06, 2024 07:32 PM Reporting Lab: [facility] [place] [facility] [address] [address] Performing Lab: [facility] [place] [facility] [address] [address] [facility] [place] [facility] URINALYS IS CLEAN CATCH PROTEIN [MASS/VOLU ME] IN URINE BY TEST STRIP NEGATIVE mg/dL 02/07 Specimen Type: URINE Comment: If Glucose = >500 and Ketones are positive, please alert the Physician. Ordering Provider: LATRICIA WOOD Report Released Date/Time: February 06, 2024 07:32 PM Reporting Lab: [facility] [place] [facility] [address] [address] Performing Lab: [facility] [place] [facility] [address] [address] [facility] [place] [facility] URINALYS IS CLEAN CATCH NITRITE [PRESENCE] IN URINE NEGATIVE mg/dL 02/07 Specimen Type: URINE Comment: If Glucose = >500 and Ketones are positive, please alert the Physician. Ordering Provider: LATRICIA WOOD Report Released Date/Time: February 06, 2024 07:32 PM Reporting Lab: [facility] [place] [facility] [address] [address] Performing Lab: [facility] [place] [facility] [address] [address] [facility] [place] [facility] URINALYS IS CLEAN CATCH BILIRUBIN. TOTAL [PRESENCE] IN URINE NEGATIVE mg/dL 02/07 Specimen Type: URINE Comment: If Glucose = >500 and Ketones are positive, please alert the Physician. Ordering Provider: LATRICIA WOOD Report Released Date/Time: February 06, 2024 07:32 PM Reporting Lab: [facility] [place] [facility] [address] [address] Performing Lab: [facility] [place] [facility] [address] [address] [facility] [place] [facility] URINALYS IS CLEAN CATCH SPECIFIC GRAVITY OF URINE BY REFRACTOME TRY 1.018 1.016 - 1.022 02/07 Specimen Type: URINE Comment: If Glucose = >500 and Ketones are positive, please alert the Physician. Ordering Provider: LATRICIA WOOD Report Released Date/Time: February 06, 2024 07:32 PM Reporting Lab: [facility] [place] [facility] [address] [address] Performing Lab: [facility] [place] [facility] [address] [address] [facility] [place] [facility] URINALYS IS CLEAN CATCH PH OF URINE BY TEST STRIP 6.0 5.0 - 9.0 02/07 Specimen Type: URINE Comment: If Glucose = >500 and Ketones are positive, please alert the Physician. Ordering Provider: LATRICIA WOOD Report Released Date/Time: February 06, 2024 07:32 PM Reporting Lab: [facility] [place] [facility] [address] [address] Performing Lab: [facility] [place] [facility] [address] [address] [facility] [place] [facility] URINALYS IS CLEAN CATCH UROBILINOG EN [MASS/VOLU ME] IN URINE BY TEST STRIP <2.0mg/d L <2.0 - 2.0 02/07 Specimen Type: URINE Comment: If Glucose = >500 and Ketones are positive, please alert the Physician. Ordering Provider: LATRICIA WOOD Report Released Date/Time: February 06, 2024 07:32 PM Reporting Lab: [facility] [place] [facility] [address] [address] Performing Lab: [facility] [place] [facility] [address] [address] [facility] [place] [facility] URINALYS IS CLEAN CATCH LEUKOCYTE ESTERASE [PRESENCE] IN URINE BY TEST STRIP NEGATIVE 02/07 Specimen Type: URINE Comment: If Glucose = >500 and Ketones are positive, please alert the Physician. Ordering Provider: LATRICIA WOOD Report Released Date/Time: February 06, 2024 07:32 PM Reporting Lab: [facility] [place] [facility] [address] [address] Performing Lab: [facility] [place] [facility] [address] [address] [facility] [place] [facility] BASIC METABOLI C PANEL (fasting ) UREA NITROGEN [MASS/VOLU ME] IN SERUM OR PLASMA 14 mg/dL 7 - 25 02/05 Specimen Type: SERUM No comment entered. Ordering Provider: LATRICIA WOOD Report Released Date/Time: January 28, 2023 04:30 PM Reporting Lab: [place] [facility] [place] [facility] [address] [address] Performing Lab: [place] [facility] [facility] [address] [address] [place] [facility] [facility] BASIC METABOLI C PANEL (fasting ) GLUCOSE [MASS/VOLU ME] IN SERUM OR PLASMA 143 mg/dL 65 - 100 02/05 H Specimen Type: SERUM No comment entered. Ordering Provider: LATRICIA WOOD Report Released Date/Time: January 28, 2023 04:30 PM Reporting Lab: [place] [facility] [facility] [address] [address] Performing Lab: [facility] [place] [facility] [address] [address] [place] [facility] [place] [facility] BASIC METABOLI C PANEL (fasting ) SODIUM [MOLES/VOL UME] IN SERUM OR PLASMA 141 mmol/L 135 - 145 02/05 Specimen Type: SERUM No comment entered. Ordering Provider: LATRICIA WOOD Report Released Date/Time: January 28, 2023 04:30 PM Reporting Lab: [facility] [place] [facility] [address] [address] Performing Lab: [facility] [place] [facility] [address] [address] [facility] [place] [facility] BASIC METABOLI C PANEL (fasting ) POTASSIUM [MOLES/VOL UME] IN SERUM OR PLASMA 4.9 mmol/L 3.5 - 5.0 02/05 Specimen Type: SERUM No comment entered. Ordering Provider: LATRICIA WOOD Report Released Date/Time: January 28, 2023 04:30 PM Reporting Lab: [place] [facility] [facility] [address] [address] Per[place] Lab: [place] [facility] [address] [address] [facility] [place] [facility] BASIC METABOLI C PANEL (fasting ) CHLORIDE [MOLES/VOL UME] IN SERUM OR PLASMA 105 mmol/L 100 - 110 02/05 Specimen Type: SERUM No comment entered. Ordering Provider: LATRICIA WOOD Report Released Date/Time: January 28, 2023 04:30 PM Reporting Lab: [place] [facility] [address] [address] Performing Lab: [place] [facility] [address] [address] [facility] BASIC METABOLI C PANEL (fasting ) CARBON DIOXIDE, TOTAL [MOLES/VOL UME] IN SERUM OR PLASMA 28 meq/L 20 - 30 02/05 Specimen Type: SERUM No comment entered. Ordering Provider: LATRICIA WOOD Report Released Date/Time: January 28, 2023 04:30 PM Reporting Lab: [place] [facility] [address] [address] Performing Lab: [place] [facility] [address] [address] [facility] [place] [facility] BASIC METABOLI C PANEL (fasting ) CREATININE [MASS/VOLU ME] IN SERUM OR PLASMA 0.85 mg/dL 0.50 - 1.40 02/05 Specimen Type: SERUM No comment entered. Ordering Provider: LATRICIA WOOD Report Released Date/Time: January 28, 2023 04:30 PM Reporting Lab: [place] [facility] [address] [address] Performing Lab: [place] [facility] [address] [address] [facility] [place] [facility] BASIC METABOLI C PANEL (fasting ) GLOMERULAR FILTRATION RATE/1.73 SQ M.PREDICTE D [VOLUME RATE/AREA] IN SERUM, PLASMA OR BLOOD BY CREATININE -BASED FORMULA (CKD-EPI) >90mL/mi n 02/05 Specimen Type: SERUM No comment entered. Ordering Provider: LATRICIA WOOD Report Released Date/Time: January 28, 2023 04:30 PM Reporting Lab: [place] [facility] [facility] [address] [address] Performing Lab: [place] [facility] [place] [facility] [address] [address] [facility] [place] [facility] LIVER FUNCTION PROTEIN [MASS/VOLU ME] IN SERUM OR PLASMA 6.3 g/dL 6.0 - 8.3 02/05 Specimen Type: SERUM No comment entered. Ordering Provider: LATRICIA WOOD Report Released Date/Time: January 28, 2023 04:30 PM Reporting Lab: [place] [facility] [facility] [address] [address] Performing Lab: [place] [facility] [place] [facility] [address] [address] [facility] LIVER FUNCTION ALBUMIN [MASS/VOLU ME] IN SERUM OR PLASMA 3.8 g/dL 3.5 - 5.0 02/05 Specimen Type: SERUM No comment entered. Ordering Provider: LATRICIA WOOD Report Released Date/Time: January 28, 2023 04:30 PM Reporting Lab: [place] [facility] [place] [facility] [address] [address] Performing Lab: [place] [facility] [place] [facility] [address] [address] [facility] [place] [facility] LIVER FUNCTION ALKALINE PHOSPHATAS E [ENZYMATIC ACTIVITY/V OLUME] IN SERUM OR PLASMA 37 U/L 40 - 150 02/05 L Specimen Type: SERUM No comment entered. Ordering Provider: LATRICIA WOOD Report Released Date/Time: January 28, 2023 04:30 PM Reporting Lab: [facility] [place] [facility] [address] [address] Performing Lab: [place] [facility] [place] [facility] [address] [address] [facility] [place] [facility] LIVER FUNCTION ASPARTATE AMINOTRANS FERASE [ENZYMATIC ACTIVITY/V OLUME] IN SERUM OR PLASMA 20 U/L 5 - 34 02/05 Specimen Type: SERUM No comment entered. Ordering Provider: LATRICIA WOOD Report Released Date/Time: January 28, 2023 04:30 PM Reporting Lab: [place] [facility] [facility] [address] [address] Performing Lab: [place] [facility] [place] [facility] [address] [address] [facility] [place] [facility] LIVER FUNCTION ALANINE AMINOTRANS FERASE [ENZYMATIC ACTIVITY/V OLUME] IN SERUM OR PLASMA 25 U/L 02/05 Specimen Type: SERUM No comment entered. Ordering Provider: LATRICIA WOOD Report Released Date/Time: January 28, 2023 04:30 PM Reporting Lab: [facility] [place] [facility] [address] [address] Performing Lab: [place] [facility] [place] [facility] [address] [address] [facility]ITALTRN [facility] LIVER FUNCTION BILIRUBIN. TOTAL [MASS/VOLU ME] IN SERUM OR PLASMA 1.0 mg/dL 0.2 - 1.2 02/05 Specimen Type: SERUM No comment entered. 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, low risk, bilater al ESSENCEHAILEY NEETU 12/22 [facility] [place] [place] [place] 1/ [id number] Diagnos is: ICD-10- CM E11.9 Type 2 diabete s mellitu s without complic ations ESSENCEHAILEY NEETU 12/22 [facility] [place] [place] [facility] FIT SPECTACLES MONOFOCAL [id number] Diagnos is: ICD-10- CM Z46.0 Encount er for fit/adj st of spectac les and contact lenses HAILEY LOWRY 12/22 [facility] [place] [facility] [facility] [place] [facility] OFFICE O/P EST LOW 20 MIN [id number] Diagnos is: ICD-10- CM E11.9 Type 2 diabete s mellitu s without complic ations MARINA WOOD RD 02/13 [facility] [place] [facility] [facility] [place] [facility] Outpatient Encounter [id number] 02/17 [facility] [place] [facility] [place] [facility] Outpatient Encounter [id number] 02/22 [place] [facility] [place] [facility] Social History Combined list of available smoking, tobacco, and other social history from 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 Social History Type Response Date Comment Source Tobacco smoking status WVIS VA-TOBACCO FORMER USER 02/14/2024 [facility] [place] [facility] History of tobacco use TX-TOBACCO QUIT 15 YRS OR MORE 02/14/2024 [facility] [place] [facility] History of tobacco use VA-TOBACCO FORMER USER 02/12/2023 [facility] [place] [facility] History of tobacco use VA-TOBACCO FORMER USER 02/13/2022 [facility] [place] [facility] History of tobacco use VA-TOBACCO FORMER USER 02/11/2021 [facility] [place] [facility] History of tobacco use VA-TOBACCO FORMER USER 12/22/2019 [facility] [place] [facility] History of tobacco use TX-TOBACCO NEVER USED 02/17/2018 [facility] [place] [facility] History of tobacco use LIFETIME NON-TOBACCO USER 02/17/2018 [facility] [place] [facility] History of tobacco use QUIT TOBACCO USE > 7 YEARS AGO 03/02/2016 PT STATES HE STOPEED 20 YRS AGO. [facility] History of tobacco use QUIT TOBACCO USE > 7 YEARS AGO 04/18/2010 [facility] Plan of Care List of future care activities from [facility] facilities. Additional future care activities may be listed in the Assessment and Plan section. Date/Time Care Activity Care Activity Detail Facili ty 01/16/2025 AMBULATORY - MEDICINE AMBULATORY - MEDICI NE [facility] Advance Directives List of completed, amended, or rescinded Advance Directives on record at [facility] facilities. An actual copy of the Directive is not included. Date Advance Directive Provider Source 02/18/2024 ADVANCE DIRECTIVE ALECIA WOOD [facility]
--- OUTSIDE RECORDS SUMMARY | 2024-12-15 16:11 | XMS_ITS ---
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 Set Up Operator Name Role Phone JASS WOOD Primary Care [...] Patient's Relationship to Policy Cope RACHNA BCBS [facility] MEDICARE SUPPLEMEN BECCA PSEUD O MEDEX BRONZ E Jun 13, 2020 [id number] [phone] KAI SAL PATIENT BCBS [place] MEDICARE SUPPLEMEN BECCA MEDEX BRONZ E Jun 13, 2020 [id number] KAI SAL LD PATIENT MEDICARE (WNR) MEDICARE (M) PART A Jun 13, 2020 PART A [id number] KAI SAL LD PATIENT MEDICARE (WNR) MEDICARE (M) PART B Jun 13, 2020 PART B [id number] KAI SAL LD PATIENT MEDICARE (WNR) MEDICARE (M) PART A Jun 13, 2012 PART A [id number] KAI SAL PATIENT MEDICARE (WNR) MEDICARE (M) PART B Jun 13, 2012 PART B [id number] KAI SAL PATIENT MEDICARE (WNR) MEDICARE (M) PART A Jun 13, 2012 PART A [id number] KAI SAL PATIENT MEDICARE (WNR) MEDICARE (M) PART B Jun 13, 2012 PART B [id number] KAI SAL PATIENT Selected Encounter This section includes the information on record at [place] for the Encounter. Date/Time Encounter Type Encounter Description Reason Provider Source Feb 14, 2024 08:30 AM OFFICE O/P EST LOW 20 MIN PRIMARY CARE/MEDICINE ICD-10-CM E11.9 Type 2 diabetes mellitus without complications JASS WOOD IH Encounter Template Text not used by [place] Assessments - Encounter Diagnoses This section includes the primary and secondary diagnoses documented for the Encounter. Date/Time Primary/Secondary Diagnosis Diagnosis Name Provider Source Mar 07, 2024 08:43 AM PRIMARY Type 2 diabetes mellitus without complications [facility]OD [facility] Lab Results: +/- 30 days of the encounter This section includes the Chemistry and Hematology Lab Results on record with [place] for the patient. Radiology Reports and Pathology Reports are provided separately, in subsequent sections. Lab Results This section contains the Chemistry/Hematology Results that were resulted 30 days before or 30 daysafter the date of the Encounter. Date/Time Source Result Type Result - Unit Interpretation Reference Range Comment February 08, 2024 07:32 AM [facility]IC METABOLIC PANEL (fasting) Specimen Type: SERUM No comment entered. Ordering Provider: JASS WOOD Report Released Date/Time: February 06, 2024 07:32 PM Reporting Lab: [facility] [address] [facility] [facility] [address] Performing Lab: [facility] [address] [facility] [address] UREA NITROGEN 14 mg/dL 7-25 GLUCOSE 126 mg/dL H 65-100 SODIUM 140 mmol/L 135-145 POTASSIUM 4.9 mmol/L 3.5-5.0 CHLORIDE 105 mmol/L 100-110 CO2 25 meq/L 20-30 CREATININE, Serum 1.10 mg/dL 0.50-1.40 eGFR(CKD-EPI 2020) 70 mL/min >60 February 08, 2024 07:32 AM [facility] LIVER FUNCTION Specimen Type: SERUM No comment entered. Ordering Provider: JASS WOOD Report Released Date/Time: February 06, 2024 07:32 PM Reporting Lab: [facility] [address] [facility] [address] Performing Lab: [facility] [address] [facility] [address] PROTEIN,TOTAL 6.0 g/dL 6.0-8.3 ALBUMIN 3.7 g/dL 3.5-5.0 ALKALINE PHOSPHATASE 41 U/L 40-150 AST 18 U/L 5-34 ALT 21 U/L BILIRUBIN, TOTAL 0.8 mg/dL 0.2-1.2 February 08, 2024 07:32 AM [facility] TSH Specimen Type: SERUM No comment entered. Ordering Provider: JASS WOOD Report Released Date/Time: February 06, 2024 07:32 PM Reporting Lab: [facility] [address] [facility] [facility] [address] Performing Lab: [address] [address] TSH 1.39 u[IU]/mL 0.35-5.00 February 08, 2024 07:32 AM [facility] LIPID PANEL FASTING Specimen Type: SERUM No comment entered. Ordering Provider: JASS WOOD Report Released Date/Time: February 06, 2024 07:32 PM Reporting Lab: [facility] [address] [facility] [address] Performing Lab: [address] [address] CHOLESTEROL 162 mg/dL TRIGLYCERIDE 112 mg/dL 0-150 LDL calculated 98 mg/dL 0-129 CHOL/HDL 3.9 HDL CHOLESTEROL 42 mg/dL 40-60 February 08, 2024 07:32 AM [facility] HEMOGLOBIN A1C PANEL Specimen Type: BLOOD Comment: [...] February 06, 2024 07:32 PM Reporting Lab: [facility] [address] [facility] [facility] [address] Performing Lab: [address] [address] HEMOGLOBIN A1C 5.6 4.0-5.6 February 08, 2024 07:32 AM [facility] CBC AND DIFF (AUTO) Specimen Type: BLOOD No comment entered. Ordering Provider: JASS WOOD Report Released Date/Time: February 06, 2024 07:32 PM Reporting Lab: [facility] [address] [facility] [address] Performing Lab: [address] [address] WBC 6.68 10*3/uL 4.50-11.00 RBC 4.23 10*6/uL 4.23-5.66 HGB 13.7 g/dL 12.8-17 HCT 40.4 39.2-50.4 MCV 95.5 fL 82-99 MCHC 33.9 g/dL 30.8-35.1 PLT 196 10*3/uL 140-360 RDW-CV 12.6 12.0-16.0 Nelson, Abs 0.73 10*3/uL 0.30-1.10 MCH 32.4 pg 26.2-32.6 Neut % 68.4 43.7-75.8 Lymph % 16.6 14.0-42.3 Nelson % 10.9 5.1-13.7 Eos % 3.1 0.4-6.8 Baso % 0.7 0.1-2.0 Neut, Abs 4.56 10*3/uL 2.20-7.60 Lymph, Abs 1.11 10*3/uL 1.00-3.20 Eos, Abs 0.21 10*3/uL 0.03-0.44 Baso, Abs 0.05 10*3/uL 0.01-0.13 Immature Gran % 0.3 0.0-0.7 Immature Gran, Abs 0.02 10*3/uL 0.00-0.06 February 08, 2024 07:32 AM [facility] MICROALBUMIN CREATININE RATIO PANEL Specimen Type: URINE No comment entered. Ordering Provider: JASS WOOD Report Released Date/Time: February 06, 2024 07:32 PM Reporting Lab: [address] [address] Performing Lab: [address] [address] MICROALBUMIN/C REATININE RATIO 12.9 mg/g 0-29.9 MICROALBUMIN,Q UANTITATIVE 1.4 mg/dL RR UNAVAIL CREATININE URINE 108.66 mg/dL February 08, 2024 07:32 AM [facility] URINALYSIS CLEAN CATCH Specimen Type: URINE Comment: If Glucose = >500 and Ketones are positive, please alert the Physician. Ordering Provider: JASS WOOD Report Released Date/Time: February 06, 2024 07:32 PM Reporting Lab: [address] [address] Performing Lab: [address] [address] UA COLOR Light-Yellow Yellow UA APPEARANCE Clear [...] 127/67 20 94 0 [phone] [place] [facility] [facility] Social History: Smoking Status (Most current) and Tobacco Use (All prior to encounter date) This section includes the most current, and the historical, smoking and tobacco- related health factors from the [place] facility where the Encounter took place. Current Smoking Status This section includes the most current smoking, or tobacco-related health factor, from the [place] facility where the Encounter took place. Date/Time Current Smoking Status Comment [facility] it Feb 14, 2024 08:30 AM VA-TOBACCO FORMER USER [place] [facility] [place] [facility] Tobacco Use History This section includes a history of the smoking, or tobacco-related health factors, that were collected on or before the date of the Encounter. The data comes from the [place] facility where the Encounter took place. Date/Time Smoking Status/Tobac co Use Comment [facility] Feb 14, 2024 08:30 AM VA-TOBACCO QUIT 15 YRS OR MORE [place] [facility] [place] [facility] Feb 12, 2023 08:30 AM VA-TOBACCO FORMER USER [place] [facility] [place] [facility] Feb 12, 2023 08:30 AM VA-TOBACCO QUIT 15 YRS OR MORE [facility] [place] [facility] Feb 13, 2022 08:00 AM VA-TOBACCO FORMER USER [facility] [place] [facility] Feb 13, 2022 08:00 AM VA-TOBACCO QUIT 15 YRS OR MORE [facility] [place] [facility] Feb 11, 2021 08:00 AM VA-TOBACCO FORMER USER [facility] [place] [facility] Feb 11, 2021 08:00 AM VA-TOBACCO QUIT 15 YRS OR MORE [facility] [place] [facility] Dec 22, 2019 11:00 AM VA-TOBACCO FORMER USER [facility] [place] [facility] Dec 22, 2019 11:00 AM VA-TOBACCO QUIT 15 YRS OR MORE [facility] [place] [facility] Feb 17, 2018 08:26 AM VA-TOBACCO NEVER USED [facility] [place] [facility] Feb 17, 2018 07:48 AM LIFETIME NON-TOBACCO USER [facility] [place] [facility] Mar 02, 2016 08:05 AM QUIT TOBACCO USE > 7 YEARS AGO PT STATES HE STOPEED 20 YRS AGO. [facility] Apr 18, 2010 10:21 AM QUIT TOBACCO USE > 7 YEARS AGO [facility] Advance Directives: All historical and current Section Date Range: From patient's date of to the date document was created. This section includes ALL of a patient's completed or amended [place] Advance and Rescinded Directives. The entries below indicate that a directive exists for the patient, but an actual copy is not included with this document. The data comes from all [place] facilities. 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 Intact (Greater than or [...] Staff Physician Signed: 02/14/2024 08:47 JASS WOOD [place] [facility] [place] [facility] Feb 14, 2024 08:08 AM PREVENTIVE MEDICINE [...] of his/her rights. Suicide Screen: C-SSRS Screening [place]-Suicide Severity Rating Scale (C-SSRS Screener) 1. Over [...] past year? 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
--- OUTSIDE RECORDS SUMMARY | 2024-12-15 16:11 | XMS_ITS | Encounter Summary ---
Author Name [facility] [place] Address [address] [place] [id number] Care Team Providers Care Aircraft Captain Name Role Phone ALECIA WOOD Primary Care [...] Patient's Relationship to Policy Cope RACHNA BCBS [facility] MEDICARE SUPPLEMEN BECCA PSEUD O MEDEX BRONZ E Jun 13, 2020 [id number] KAI SAL PATIENT [place]BS [place] MEDICARE SUPPLEMEN BECCA MEDEX BRONZ E Jun 13, 2020 [id number] KAI SAL LD PATIENT MEDICARE (WNR) MEDICARE (M) PART A Jun 13, 2020 PART A [id number] [phone] KAI SAL PATIENT MEDICARE (WNR) MEDICARE (M) PART B Jun 13, 2020 PART B [id number] [phone] KAI SAL LD PATIENT MEDICARE (WNR) MEDICARE (M) PART A Jun 13, 2012 PART A [id number] KAI SAL PATIENT MEDICARE (WNR) MEDICARE (M) PART B Jun 13, 2012 PART B [id number] KAI SAL PATIENT MEDICARE (WNR) MEDICARE (M) PART B Jun 13, 2012 PART B [id number] [phone] KAI SAL PATIENT MEDICARE (WNR) MEDICARE (M) PART A Jun 13, 2012 PART A [id number] KAI SAL PATIENT Selected Encounter This [...] bilateral TOY LOWRY [place] [facility] [place] [facility] January 14, 2024 11:19 AM SECONDARY Macular cyst, hole, or pseudohole, bilateral CHANO LOWRYEL E [place] [facility] [place] [facility] January 14, 2024 11:19 AM SECONDARY Puckering of macula, bilateral TOY LOWRY [place] [facility] [facility] Plan of Treatment: Future Appointments (+ [...] 14, 2024 08:30 AM AMBULATORY - MEDICINE [facility] [place] [facility] Social History: Smoking Status (Most current) [...] VA-TOBACCO FORMER USER [place] [facility] [place] [facility] Tobacco Use History This section includes a history of the smoking, or tobacco-related health factors, that were collected on or before the date of the Encounter. The data comes from the [place] facility where the Encounter took place. Date/Time Smoking Status/Tobac co Use Comment Facility Feb 12, 2023 08:30 AM VA-TOBACCO QUIT 15 YRS OR MORE [place] [facility] [place] [facility] Feb 13, 2022 08:00 AM VA-TOBACCO FORMER USER [place] [facility] [place] [facility] Feb 13, 2022 08:00 AM VA-TOBACCO QUIT 15 YRS OR MORE [place] [facility] [facility] Feb 11, 2021 08:00 AM VA-TOBACCO FORMER USER [place] [facility] [facility] Feb 11, 2021 08:00 AM VA-TOBACCO QUIT 15 YRS OR MORE [place] [facility] [facility] Dec 22, 2019 11:00 AM VA-TOBACCO FORMER USER [place] [facility] [place] [facility] Dec 22, 2019 11:00 AM VA-TOBACCO QUIT 15 YRS OR MORE [place] [facility] [place] [facility] Feb 17, 2018 08:26 AM VA-TOBACCO NEVER USED [place] [facility] [facility] Feb 17, 2018 07:48 AM LIFETIME NON-TOBACCO USER [place] [facility] [place] [facility] Mar 02, 2016 08:05 AM QUIT TOBACCO USE > 7 YEARS AGO PT STATES HE STOPEED 20 YRS AGO. [place] [facility] [place] [facility] Apr 18, 2010 10:21 AM QUIT TOBACCO USE > 7 YEARS AGO [place] [facility] [facility] Advance Directives: All historical and current [...] DIRECTIVE ALECIA WOOD [place] [facility] [place] [facility] Encounter Notes: All associated encounter notes [...] 12/24/2023 09:09 SONU MAR [place] [facility]
[2024-12-15 16:37] LABS: MANUAL DIFF FLAG NO
[2024-12-15 16:49] LABS: Anion Gap 10 (12-20); Blood Urea Nitrogen 17 mg/dL (9-16); Calcium 8.6 mg/dL (8.4-10.2); Carbon Dioxide 26 mmol/L (22-29); Chloride 109 mmol/L (96-108); Creatinine Clr Calc Pharmacy 68.8; Estimated Glomerular Filt Rate 58; Glucose Random 124 mg/dL (60-115); Potassium 4.6 mmol/L (3.3-5.1); Sodium 140 mmol/L (135-145)
[2024-12-15 16:51] LABS: Basophils Percent Auto 0.5 % (0-2); Eosinophils Absolute Auto 0.1 X10*3/uL (0.0-0.4); Eosinophils Percent Auto 1.9 % (0-4); Hematocrit 39.5 % (42.0-52.0); Hemoglobin 13.5 g/dl (14.0-18.0); Imm Gran Abs Auto 0.02 X10*3/uL (0.00-0.03); Imm Gran Pct Auto 0.3 % (0.0-0.4); Lymphocytes Absolute Auto 1.1 X10*3/uL (1.2-4.9); Lymphocytes Percent Auto 15.2 % (20-40); Mean Corpuscular HGB Conc 34.2 g/dl (31.0-36.0); Mean Corpuscular Hemoglobin 32.3 pg (27.0-33.0); Mean Corpuscular Volume 94.5 fL (80.0-98.0); Mean Platelet Volume 9.4 fL (9.4-12.4); Monocytes Absolute Auto 0.7 X10*3/uL (0.1-1.2); Monocytes Percent Auto 9.6 % (2-11); Neutrophils Absolute Auto 5.4 x10*3/uL (2.0-8.3); Neutrophils Percent Auto 72.5 % (45-73); Platelet Count 173 X10*3/uL (160-400); Red Blood Count 4.18 X10*6/uL (4.60-5.80); Red Cell Distribution Width 12.8 % (11.0-16.0); White Blood Count 7.5 X10*3/uL (4.8-10.8)
[2024-12-15] MEDS: Diphth,Pertus(ACell),Tet Adult 0.5 ML SYRINGE IM (18:22)
[2024-12-15 20:39] VITALS: BP 131/62; PULSE 80; RESP 18; TEMP 36.8; O2SAT 96
== END 2024-12-15 20:40 | disposition home or self-care (01) ==
PROVIDERS: Emergency Provider Emergency Medicine Emergency Medical Services; PCP Internal Medicine
DX: S00.81XA Abrasion of other part of head, initial encounter (principal); S09.90XA Unspecified injury of head, initial encounter; R51.9 Headache, unspecified; M54.2 Cervicalgia; W19.XXXA Unspecified fall, initial encounter; Y93.9 Activity, unspecified; Y92.9 Unspecified place or not applicable; Y99.8 Other external cause status; Z79.899 Other long term (current) drug therapy; Z87.891 Personal history of nicotine dependence; Z23 Encounter for immunization
CPT/HCPCS: 36415; 70450; 70486; 72125; 80048; 85025; 90471; 90715; 99284

== ENCOUNTER → 2024-12-15 15:59 | Outpatient (BNV) | payer MEDICARE, SELFPAY | PROVIDERS: Emergency Provider Emergency Medicine Emergency Medical Services; PCP Internal Medicine; Visit Provider Specialist | DX: M50.30 Other cervical disc degeneration, unspecified cervical region (principal); S00.83XA Contusion of other part of head, initial encounter | CPT/HCPCS: 70450; 70486; 72125 ==

== ENCOUNTER 2025-02-06 14:01 | Inpatient (IN) | payer MEDICARE, SELFPAY ==
[2025-02-06] VITALS (7 sets, daily range): BP systolic 120–145; BP diastolic 66–82; PULSE 85–100; RESP 12–21; TEMP 36.2–36.6; O2SAT 91–98; BMI 40.7; BMI 39.5
--- NOTE | ~2025-02-06 | XR_ITS ---
EXAMINATION: XR HIP 1 VIEW LEFT WITH PELVIS HISTORY: Fall and pain COMPARISON: There are no prior studies for comparison. FINDINGS: A single AP view of the pelvis and 3 views of the left hip are submitted. Osseous mineralization is normal. There is a mildly displaced fracture through the femoral neck. No additional fracture is identified. There is no dislocation. The joint space is maintained. There are vascular calcifications. The patient is status post right total hip arthroplasty. XR/XR hip LT w [id number] IMPRESSION: Mildly displaced fracture of the left femoral neck. Electronically signed by: Mac Zamora MD 02/06/2025 03:04 PM EDT
--- NOTE | ~2025-02-06 | XR_ITS ---
EXAMINATION: XR CHEST CLINICAL INFORMATION: Hypoxia, fever COMPARISON: 02/06/2025. TECHNIQUE: Frontal view of the chest was obtained. FINDINGS: Prior median sternotomy. There is cardiac enlargement. The mediastinal and hilar contours appear normal. Aortic mural calcifications. The lungs appear grossly clear bilaterally. No pneumothorax or effusion. No focal osseous or soft tissue abnormality. Severe degenerative arthritis left shoulder joint. Degenerative changes throughout the spine. XR/XR chest 1V IMPRESSION: No active pulmonary disease. Electronically signed by: Lamin Trejo MD 02/08/2025 01:27 PM EDT
--- NOTE | ~2025-02-06 | XR_ITS ---
CLINICAL HISTORY: post op 2 view pelvis Comparison: X-rays of the left hip from 02/06/2025 Findings: New postprocedural changes from left hip hemiarthroplasty. Postprocedural gas and soft tissue swelling noted about the left hip. Redemonstration right hip arthroplasty hardware with cerclage wire about femoral portion. Lateral plate and screw fixation hardware imaged femur is now partially imaged in the [id number]. Majority of the pelvis is obscured with [id number] stool burden in the [id number]. Degenerative changes include the partially imaged pubic symphysis and partially imaged SI joints. IMPRESSION: New procedure changes from left hip hemiarthroplasty. This document has been electronically signed by: Sean Gonzalez MD on 02/09/2025 20:32:14
--- NOTE | ~2025-02-06 | XR_ITS ---
EXAMINATION: XR CHEST 1 VIEW HISTORY: Fall COMPARISON: Comparison is made with the prior examination dated 06/01/2020. FINDINGS: Two AP portable views of the chest performed at 2:54 PM are submitted. There is a nodular opacity at the medial aspect of the left lung base. The right lung is clear. There is no pleural effusion, pneumothorax, or pulmonary vascular congestion. The heart is normal in size. The patient is status post median sternotomy. There is degenerative disc disease of the spine. XR/XR chest 1V IMPRESSION: Nodular opacity at the medial aspect of the left lung base. Further evaluation with chest CT is advised. Electronically signed by: Mac Zamora MD 02/06/2025 03:07 PM EDT
--- OUTSIDE RECORDS SUMMARY | 2025-02-06 14:28 | XMS_ITS ---
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 Name Role Phone Daniel Romano Primary Care Provider Chantel Smith Unavailable [phone] Allergies Allergen (clinical drug ingredient) Drug/Non Drug Allergy documented on EMR Reaction Allergy Type Onset Date Status Lamisil sick Drug Allergy Active REASON FOR VISIT At Risk Footcare Medications Medication SIG (Take, Route, Frequency, Duration) Notes Start Date End Date Status Fluticasone Propionate 50 MCG/ACT 2 sprays (1 spray in each nostril) Nasally Once a day Active Lisinopril Active metFORMIN HCl 500 MG Orally Twice a day Active Glucosamine Active Gabapentin 600 MG Orally Bedtime Active Ozempic Active Ciclopirox Olamine 0.77 % 1 application to affected area Externally Twice a day to effected areas on feet for 30 days Active Amoxicillin 500 MG 4pills Orally Prevent infection (dentist & surgery) PRN Active Aspirin 81 MG 1 tablet Orally Once a day Not-Taking Diflucan 200 MG 1 tablet Orally Once a week for 30 days Not-Taking Ventolin HFA 108 (90 Base) MCG/ACT Inhalation PRN PRN Not-Taking flovent HFA prn Not-Taki ng Ciclopirox Olamine 0.77 % 1 application to affected area Externally Twice a day to effected areas on feet for 30 days 04/17/2024 Active Ozempic (0.25 or 0.5 MG/DOSE) Once a week Not-Taking Tylenol 650mg 2 pills Not-Ta lul traZODone HCl 100 MG 1 tablet at bedtime Orally Once a day Active Extra Depth Diabetic Shoes with 3 Pair Custom heat-molded multi-density innersoles for 1 year Dx: Active Multivitamin Active Simvastatin 20 MG Orally Ac tive Social History Tobacco Use: Social History Observation Description Date Details (start date - stop date) Former Smoker NA - NA Tobacco Use/Smoking Question Answer Notes Are you a: former smoker Additional Findings: Tobacco Non-User Current no n-smoker Tobacco use other than smoking: Question Answer Notes Are you an other tobacco user? No Problems Problem Type SNOMED Code ICD Code Onset Dates Problem Status W/U Status Risk Notes Problem Polyneuropathy due to type 2 diabetes mellitus (079465383) Type 2 diabetes mellitus with diabetic polyneuropathy (E11.42) Active confirmed Vital Signs Height 5 ft 9.5 in in 07/19/2024 Weight 273 lbs 07/19/2024 BMI 39.73 kg/m2 07/19/2024 Blood pressure systolic 120 mm Hg 07/19/20 Blood pressure diastolic 70 mm Hg 024 Procedures Procedure Date Ordered Date Performed Result Body Sit e 86780-APMMEWA NAIL, 6 OR MORE 07/19/2024 N/A 56762-CALW SKIN LESIONS, 2 TO 4 07/19/2024 N/A Encounters Encounter Location Date Provider Diagnosis [facility] [address] [address] 07/19/2024 Chantel Infante Type 2 diabetes mellitus with diabetic polyneuropathy E11.42 and Tinea unguium B35.1 Assessments Encounter Date Diagnosis (ICD Code) Assessment Notes Treatment Notes Treatment Clinical Notes Section Notes 07/19/2024 Type 2 diabetes mellitus with diabetic polyneuropathy (ICD-10 - E11.42) 07/19/2024 Tinea unguium (ICD-10 - B35.1) Plan Of Treatment Pending Test Test Name Order Date 66940-LYSVCPD NAIL, 6 OR MORE 07/19/2024 07023-VFTG SKIN LESIONS, 2 TO 4 07/19/20 24 Next Appt Details Follow Up: 3 Months, Reason: Provider Name:Chantel cooper, 02/12/2025 02:30:00 PM, [address] [place] [address], [phone], Procedure Notes * Category Sub-Category Detail Notes Debride Nail 6-10 Nail debridement Performance o f this nail treatment by a nonprofessional would put this patients foot and overall health at risk. Therefore, debridement to affected nail(s) as described in exam was performed extensively to reduce/remove overall nail length, girth, thickness, subungual debris, and necrotic tissue, by manual and/or electrical means through the use of a nail nipper and/or dremel-type internal grinder set up operator, to a more viable healthy nail plate or bed tissue 6-10. Silver nitrate used for any petechial bleeding as necessary. Definitive antifungal treatment options have been reviewed and discussed with the patient. The patient chooses, no pharmaceutical tx - 09360 Keratoma Treatment Parring or Cutting o f Benign Hyperkeratotic Lesion(s) (-56) 2-4 Lesions - The Benign hyperkeratotic lesions, as described in exam, were pared, and/or cut utilizing a sterile 15 blade, tissue nippers, and/or dremel - 98209 Progress Notes * Festus MUNOZDOB:1950 ( 74 yo M)Acc No.[id number]:07/19/2024 Progress Note Patient:?Festus Munoz Provider:?Chantel Infante DPM :1950???Age:74 Y???Sex:Male Michael e:07/19/2024 Address: [address] , [id number] Pcp:Daniel Romano Subjective: * Chief Complaints: * ???At Risk Footcare * HPI: ???At Risk footcare:?Pt States Last PCP Visit:?Date?02/16/2024 * ROS:?General/Constitutional:?Nausea?denies.?Vomiting?denies.?Hunger Thirst?denies.?Loss appetite?denies.?Chills?denies.?Fatigue?denies.?Fever?denies.?Night Sweats?denies.?Unexplained weight loss?denies.?Unexplained weight gain?denies.?HEENTM:?Dentures?denies.?Dizziness?denies.?Glasses/contacts?admits.?Retinopathy?de nies.?Blurred/double vision?denies.?TMJ?denies.?Discharge/drainage?denies.?Implants?denies.?Sore throat?denies.?Dental implants?denies.?Hard of hearing ?denies.?Difficulty chewing/swallowing/speaking?denies.?Nose bleeds?denies.?Sore mouth?denies.?Respiratory:?On Oxygen?denies.?Pneumonia/pleurisy?denies.?Bronchitis?denies.?Emphysema?denies.?C oughing?denies.?Cough blood?denies.?Shortness of breath?denies.?Wheezing?denies.?Cardiovascular:?Pacemaker?denies.?MVP?denies.?WPW?denies.?CHF?denies.?Heart attack?denies.?Septal defect?denies.?Rapid beat?denies.?Chest pain ?denies.?Atrial Fib.?denies.?Murmur/Palpitations?denies.?Gastrointestinal:?Hemorrhoids?denies.?Stomach/Abdominal pain?denies.?Dark blood stool?denies.?Irritable bowel ?denies.?Constipation?denies.?Diarrhea?denies.?Hematology:?Swelling?denies.?Clots?denies.?Varicose Veins?denies.?Bruising?denies.?Bleeding problem?denies.?Genitourinary:?Blood urine?denies.?Frequent/Painfu/urination/bladder control?denies.?Kidney stones?denies.?Infection (UTI)?denies.?Nephropathy?denies.?sex trans dis (STD)?denies.?Prostate?denies.?Musculoskeletal:?Hammertoes?denies.?Bunions?denies.?Back Pain?admits.?Muscle Cramps/ Resting?denies.?Muscle cramps / walking?denies.?Generalized aches and pains?admits.?Weakness?denies.?Integ.:?Horan?denies.?Scars?admits.?Corns/calluses?denies.?Ingrown nails?denies.?Painful nails?denies.?Open Sores?denies.?Rashes?denies.?Neurologic:?Difficulty sleeping?admits.?Brain disorder?denies.?Numbness?denies.?Balance trouble?denies.?Confusion?denies.?Fainting/blackouts?denies.?Tingling?denies.?Tr emors?denies.? * Medical History:? * Surgical History:?total righ t hip replacement 07/13/2014right knee replacement 07/31/2015Total left knee replacement 11/13/2015femur 08/11/2016Full Pericardiectomy 08/14/1998 * Hospitalization/Major Diagno stic Procedure:?Denies Past Hospitalization * Family History:?Mother: shelly arreguin?Father: , diagnosed with Diabetic - NIDDM, Other malignant neoplasm of unspecified site.? * Social History:?Tobacco Use:?Tobacco Use/Smoking?Are you a:?former smoker ?Additional Findings: Tobacco Non-User?Current non-smoker ?Tobacco use other than smoking?Are you an other tobacco user??No ???Miscellaneous:?Caffeine: yes, 1-2 cups per day. ?Children: yes, 2. ?no Exercise, none. ?Marital status: . 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 * Medications:?TakingOzempic A moxicillin 500 MG 4pills Orally Prevent infection (dentist & surgery), Notes: PRNCiclopirox Olamine 0.77 % Cream 1 application to affected area Externally Twice a day to effected areas on feetFluticasone Propionate 50 MCG/ACT Suspension 2 sprays (1 spray in each nostril) Nasally Once a dayGlucosamine Gabapentin 600 MG Tablet Orally BedtimeLisinopril metFORMIN HCl 500 MG Tablet Orally Twice a dayMultivitamin Simvastatin 20 MG Tablet Orally traZODone HCl 100 MG Tablet 1 tablet at bedtime Orally Once a dayExtra Depth Diabetic Shoes with 3 Pair Custom heat-molded multi-density innersoles for 1 year Dx:Ciclopirox Olamine 0.77 % Cream 1 application to affected area Externally Twice a day to effected areas on feetTaking Ozempic Taking Amoxicillin 500 MG 4pills Orally Prevent infection (dentist & surgery), Notes: PRNTaking Ciclopirox Olamine 0.77 % Cream 1 application to affected area Externally Twice a day to effected areas on feetTaking Fluticasone Propionate 50 MCG/ACT Suspension 2 sprays (1 spray in each nostril) Nasally Once a dayTaking Glucosamine Taking Gabapentin 600 MG Tablet Orally BedtimeTaking Lisinopril Taking metFORMIN HCl 500 MG Tablet Orally Twice a dayTaking Multivitamin Taking Simvastatin 20 MG Tablet Orally Taking traZODone HCl 100 MG Tablet 1 tablet at bedtime Orally Once a dayTaking Extra Depth Diabetic Shoes with 3 Pair Custom heat-molded multi-density innersoles for 1 year Dx:Taking Ciclopirox Olamine 0.77 % Cream 1 application to affected area Externally Twice a day to effected areas on feetNot-Taking/PRNAspirin 81 MG Tablet Chewable 1 tablet Orally Once a dayOzempic (0.25 or 0.5 MG/DOSE) , Notes: Once a weekVentolin HFA 108 (90 Base) MCG/ACT Aerosol Solution Inhalation PRN, Notes: PRNflovent HFA prnTylenol 650mg 2 pills Diflucan 200 MG Tablet 1 tablet Orally Once a weekMedication List reviewed and reconciled with the patientNot-Taking/PRN Aspirin 81 MG Tablet Chewable 1 tablet Orally Once a dayNot-Taking/PRN Ozempic (0.25 or 0.5 MG/DOSE) , Notes: Once a weekNot- Taking/PRN Ventolin HFA 108 (90 Base) MCG/ACT Aerosol Solution Inhalation PRN, Notes: PRNNot-Taking/PRN flovent HFA prnNot-Taking/PRN Tylenol 650mg 2 pills Not- Taking/PRN Diflucan 200 MG Tablet 1 tablet Orally Once a weekMedication List reviewed and reconciled with the patient * Allergies:?Lamisil: ismael[ Allergies Verified] Objective: * Vitals:?Ht:5 ft 9.5 in, Wt:2 73, BMI:39.73, Shoe size:11, BP:120/70 mm Hg, BS:not taken, Ht-cm: 176.53 cm, Wt-k.83 kg. * ???Past Orders: ???Lab:HEMOGLOBIN A1C (GLYCO HEMOGLOBIN) (Order Date - 04/17/2024) (Collection Date - 02/14/2024) ? Value Reference Range ?HEMOGLOBIN A1C (HH) 5.5 * Examination: ???Neurological: ?SENSORY:?Neurological exam demonstrates reduced sharp/dull pin prick discrimination reduced light touch sensation reduced vibration sensation reduced proprioception sensation in a stocking fashion 5.07 monofilament test performed at plantar aspects of 5 varied sites per foot shows sensation plantar aspects absent at Forefoot B/L.?Vascular: ?DP PULSES(B):?1/4, B/L.?PT PULSES(B):?0/4, B/L.?EDEMA(C):?1/4, Right, Feet, Ankle(s), Leg(s).?Dermatologic: ?SKIN FINDINGS:?Skin exam reveals Keratotic lesion(s) located at, SUB MTH (s), 1, B/L , Heel(s), B/L.?Orthopedic: ?MUSCLE STRENGTH:?5/5 all groups in a symmetrical fashion , B/L.?Nails: ?NAILS are:?Elongated, overgrown, dystrophic, lytic, greater than 3mm thick, discolored and friable with crumbly malodorous subungual debris, with dull pain on palpation due to neuropathy, 1-5 B/L.? Assessment: * Assessment: 1.?Type 2 diabetes mellitus with diabetic polyneuropathy - E11.42 (Primary)?2.?Tinea unguium - B35.1? Plan: * Treatment: * Procedures:?Debride Nail 6-10:?Nail debridement?Performance of this nail treatment by a nonprofessional would put this patients foot and overall health at risk. Therefore, debridement to affected nail(s) as described in exam was performed extensively to reduce/remove overall nail length, girth, thickness, subungual debris, and necrotic tissue, by manual and/or electrical means through the use of a nail nipper and/or dremel-type internal grinder set up operator, to a more viable healthy nail plate or bed tissue 6-10. Silver nitrate used for any petechial bleeding as necessary. Definitive antifungal treatment options have been reviewed and discussed with the patient. The patient chooses, no pharmaceutical tx - 30419.?Keratoma Treatment:?Parring or Cutting of Benign Hyperkeratotic Lesion(s)?(-56) 2-4 Lesions - The Benign hyperkeratotic lesions, as described in exam, were pared, and/or cut utilizing a sterile 15 blade, tissue nippers, and/or dremel - 08532.? * Procedure Codes:?29412 DEBRI DE NAIL, 6 OR MORE, Modifiers: XS 37629 TRIM SKIN LESIONS, 2 TO 4, Modifiers: XS * Follow Up:?3 Months * Images: * Sign off status: Completed true * Provider:?Chantel Infante DPM Date:?09/18/2023 Generated for Lorrie schaefer/Tequila/Barbara on:?02/06/2025 02:28 PM EDT History and Physical Notes * HPI (History of Present Illness) Category Sub-Category Detail Notes Category Not es At Risk footcare Pt States Last PCP Visit: Date: 4 Examination Category Sub-Category Detail Notes Category Not es Neurological SENSORY: Neurological exa m demonstrates reduced sharp/dull pin prick discrimination reduced light touch sensation reduced vibration sensation reduced proprioception sensation in a stocking fashion 5.07 monofilament test performed at plantar aspects of 5 varied sites per foot shows sensation plantar aspects absent at Forefoot B/L Dermatologic SKIN FINDINGS: Skin exam reveal s Keratotic lesion(s) located at, SUB MTH (s), 1, B/L , Heel(s), B/L Orthopedic MUSCLE STRENGTH: 5/5 all groups in a symmetrical fashion , B/L Vascular DP PULSES (B): 1/4, B/L PT PULSES (B): 0/4, B/L EDEMA (C): 1/4, Right, Feet, An kle(s), Leg(s) Nails NAILS are: Elongated, overg rown, dystrophic, lytic, greater than 3mm thick, discolored and friable with crumbly malodorous subungual debris, with dull pain on palpation due to neuropathy, 1-5 B/L
--- NOTE | 2025-02-06 14:42 | ECG_ITS ---
Test Reason : FALL Blood Pressure : */* mmHG Vent. Rate : 92 BPM Atrial Rate : 92 BPM P-R Int : 216 ms QRS Dur : 126 ms QT Int : 356 ms P-R-T Axes : 52 -9 13 degrees QTcB Int : 440 ms Sinus rhythm with 1st degree A-V block with Premature atrial complexes Premature ventricular complexes Right bundle branch block Abnormal ECG When compared with ECG of 06-Mar-2021 10:22, No significant changes seen Referred By: Mercedes Tran Electronically Signed By: RAYNE TIPTON MD
--- NOTE | 2025-02-06 15:05 | ED_ITS ---
HPI - Fall General Chief Complaint: Fall Stated Complaint: FALL,L HIP PAIN PER EMS Time Seen by Provider: 02/06/25 14:03 Source: patient and EMS Mode of arrival: EMS Limitations: no limitations History of Present Illness ED Provider: DR. Tran HPI Narrative: 74-year-old male came in by ambulance after he sustained a mechanical fall after his left knee give out, patient fell landing on his right side, causing superficial bruise to the right elbow and complaining of left hip pain, patient is unable to bear weight on the left hip, no head injury, no neck pain, no chest pain, no abdominal pain, no other extremity pain, patient is not on anticoagulation. Related Data Home Medications ?Medication ?Instructions ?Recorded ?Confirmed CPAP #1 ea 12/03/20 06/20/24 Previous Rx's ?Medication ?Instructions ?Recorded lactulose 20 gram/30 mL oral 20 g (30 mL) PO BID #2,880 mL 03/13/24 solution metformin 500 mg tablet 500 mg PO BID 90 days #180 tabs 04/24/24 fluticasone propionate 50 2 spray intranasal DAILY #3 ea 08/31/24 mcg/actuation nasal spray,suspension (Flonase Allergy Relief) mupirocin 2 % topical ointment 1 appl topical BID 2 weeks #22 11/08/24 grams semaglutide 2 mg/dose (8 mg/3 mL) 2 mg (0.75 mL) subcut QWEEK #3 ea 11/15/24 subcutaneous pen injector (Ozempic) lisinopril 5 mg tablet 5 mg PO DAILY #90 tabs 01/09/25 trazodone 100 mg tablet 100 mg PO BEDTIME 90 days #90 tabs 01/09/25 gabapentin 600 mg tablet 600 mg PO DAILY 90 days #90 tabs 01/13/25 cyclobenzaprine 10 mg tablet 10 mg PO TID PRN pain #14 tabs 01/15/25 simvastatin 40 mg tablet 40 mg PO BEDTIME #90 tabs 01/23/25 Allergies Allergy/AdvReac Type Severity Reaction Status Date / Time terbinafine [From LAMISIL] AdvReac Intermediate GI UPSET Verified 02/06/25 14:15 Lamisil Allergy Unknown Stomach Uncoded 12/15/24 14:22 Upset Review of Systems 2 Review of Systems: All other systems are reviewed and are negative Constitutional: Reports as per HPI and Reports no additional constitutional complaints Eyes: Reports as per HPI and Reports no additional eye complaints Reports system reviewed and no additional complaints, except as documented Cardiovascular: Reports as per HPI and Reports no additional cardiovascular complaints Respiratory: Reports as per HPI and Reports no additional respiratory complaints Gastrointestinal: Reports as per HPI and Reports no additional gastrointestinal complaints Genitourinary: Reports no additional female genitourinary complaints Musculoskeletal: Reports no additional musculoskeletal complaints Skin/Breast: Reports system reviewed and no additional complaints, except as docu Psychiatric: Reports no additional psychiatric complaints Endocrine: Reports no additional endocrine complaints Hematologic/Lymphatic: Reports no additional hematologic/lymphatic complaints Allergic/Immunologic: Reports no additional allergic/immunologic complaints Reports system reviewed and no additional complaints, except as documented and Reports Abnormal speech present [facility] Past Medical History Medical History SOB (shortness of breath) on exertion Impacted cerumen of both ears Aortic dilatation Cholelithiasis Obstructive sleep apnea Erectile dysfunction Hypercholesterolemia Peripheral neuropathy Asthma Type 2 diabetes mellitus with hyperglycemia Chronic low back pain Hypertension Surgical History S/P ORIF (open reduction internal fixation) fracture History of left knee replacement History of total right knee replacement History of right hip replacement History of pericardiectomy H/O lumbar discectomy Family History Family History Mother Mental health disorder Social History Social History Housing: House Alcohol intake: current Alcohol intake frequency: a few times a week Comment: once a week 1 drinks Patient Tobacco Use Status: Former Tobacco user Tobacco use type: Cigarette Years Smoked: stopped 1994 e-Cigarette/Vaping Use: Never Used Second Hand Smoke Exposure: Yes Advance Directives: Yes Advance Directives on File: Yes Advance Directives Date on File: 12/26/21 Do you have a plan to hurt others: No Plan service: Yes Current occupational status: retired Cognitive needs: No Hearing needs: Yes Vision needs: Yes Physical Exam 2 Vital Signs: Vital Signs: Last Vital Signs Pulse 97 02/06/25 14:12 Resp 16 02/06/25 14:12 BP 123/71 02/06/25 14:12 Pulse Ox 97 02/06/25 14:12 O2 Del Method Room Air 02/06/25 14:12 BMI result Body Mass Index 40.7 Vital signs have been reviewed and appear to be correct. Blood pressure elevated. Heart rate normal. Respiratory rate normal. Temperature normal. Oxygen saturation normal. Appearance: Alert. Oriented X3. No acute distress. Head: Normal external exam. Normocephalic. Atraumatic. No Mitchell signs noted. No raccoon eyes noted Eyes: PERRLA. EOMI. Conjunctiva and sclera normal. Eyelids normal. ENT: TM's Normal. Pharynx normal. Uvula midline. Moist mucous membranes. No trismus noted. No drooling noted. No muffled voice noted. Neck: Normal inspection. Neck supple. FROM. No adenopathy. Thyroid Normal. No meningeal signs. No neck mass noted. CVS: Normal heart rate and rhythm. Heart sound normal. No murmurs noted. Pulses normal throughout. Respiratory: No respiratory distress. Painless inspiration. Breath sounds normal. No wheezes/rales/rhonchi noted. Chest nontender. No accessory muscle usage noted or decreased air movement noted. Abdomen: Soft and nontender. Bowel sounds normal in all 4 quadrants. No distention noted. No organomegaly noted. No visible injury noted. Back: No CVA tenderness. Full range of motion noted. Skin: Skin warm and dry. Normal skin color. Normal skin turgor. No rashes/lesions/lacerations noted. Extremities: Left hip tenderness, no deformity, no shortening, no lower extremity rotation, neurovascularly intact. Neuro: Oriented X 3. Cranial nerve exam: II-XII are grossly intact No motor deficit. No sensory deficit. Reflexes normal. Course Reevaluation(s) Reevaluation #1: Left hip fracture. Admit to medical service for further preoperative clearance. Time: 16:00 Medical Decision Making Differential Diagnosis Differential Diagnoses: The differential diagnosis associated with the presentation includes (Left hip fracture, pneumonia, pneumothorax, pleural effusion, coagulopathy, severe anemia, electrolyte derangement.) Admission/Observation Consideration of admission/observation: Escalation of care including admission/observation considered Lab Data MDM Lab Attestation statement: I reviewed the patient's lab results. 02/06/25 15:21 02/06/25 15:21 Labs: Lab Results 02/06/25 02/06/25 Range/Units 15:21 15:22 WBC 8.5 (4.8-10.8) X10*3/uL RBC 4.17 L (4.60-5.80) X10*6/uL Hgb 13.5 L (14.0-18.0) g/dl Hct 39.0 L (42.0-52.0) % MCV 93.5 (80.0-98.0) fL MCH 32.4 (27.0-33.0) pg MCHC 34.6 (31.0-36.0) g/dl RDW 13.1 (11.0-16.0) % Plt Count 157 L (160-400) X10*3/uL MPV 8.9 L (9.4-12.4) fL Immature Gran % (Auto) 0.5 H (0.0-0.4) % Neut % (Auto) 79.9 H (45-73) % Lymph % (Auto) 10.0 L (20-40) % Culberson % (Auto) 7.9 (2-11) % Eos % (Auto) 1.2 (0-4) % Baso % (Auto) 0.5 (0-2) % Lymph # (Auto) 0.9 L (1.2-4.9) X10*3/uL Culberson # (Auto) 0.7 (0.1-1.2) X10*3/uL Eos # (Auto) 0.1 (0.0-0.4) X10*3/uL Baso # (Auto) 0.0 (0.0-0.2) X10*3/uL Abs Immat Gran (auto) 0.04 H (0.00-0.03) X10*3/uL Absolute Neuts (auto) 6.8 (2.0-8.3) x10*3/uL Absolute Nucleated RBC 0.000 (0.0-0.012) X10*3/uL Nucleated RBC % (auto) 0.0 (0.0-0.2) /100WBC PT 11.3 (10.9-12.4) SEC INR 1.0 (0.9-1.1) Sodium 143 (135-145) mmol/L Potassium 4.6 (3.3-5.1) mmol/L Chloride 108 (96-108) mmol/L Carbon Dioxide 28 (22-29) mmol/L Anion Gap 12 (12-20) BUN 13 (9-16) mg/dL Creatinine 1.13 (0.5-1.4) mg/dL Estim Creat Clear Calc 74.9 Estimated GFR > 60 Random Glucose 119 H (60-115) mg/dL Calcium 8.9 (8.4-10.2) mg/dL Total Bilirubin 0.7 (0.0-1.0) mg/dL Direct Bilirubin 0.2 (0.0-0.5) mg/dL AST 27 (5-37) U/L ALT 24 (0-40) U/L Alkaline Phosphatase 53 (39-117) U/L Troponin I High Sens 7.3 (<3.5-35.0) ng/L Total Protein 6.1 L (6.5-8.0) g/dL Albumin 3.9 (3.5-5.0) g/dL Lipase 82 H (8-78) U/L Independent Interpretation I performed an independent interpretation of an: Plain X-Ray (Left hip: Femoral neck fracture. Chest x-ray:Nodular opacity at the medial aspect of the left lung base. Further evaluation with chest CT is advised.) Radiology Impression Discussion of test interpretation with radiology: I have reviewed the radiologist's reading. Discharge Plan Discharge Clinical Impression: Closed fracture of left hip, Lung nodule Patient Disposition: Admitted As Inpatient Print Language: German
[2025-02-06 15:27] LABS: MANUAL DIFF FLAG NO
[2025-02-06 15:29] LABS: Basophils Percent Auto 0.5 % (0-2); Eosinophils Absolute Auto 0.1 X10*3/uL (0.0-0.4); Eosinophils Percent Auto 1.2 % (0-4); Hemoglobin 13.5 g/dl (14.0-18.0); Imm Gran Abs Auto 0.04 X10*3/uL (0.00-0.03); Imm Gran Pct Auto 0.5 % (0.0-0.4); Lymphocytes Absolute Auto 0.9 X10*3/uL (1.2-4.9); Mean Corpuscular HGB Conc 34.6 g/dl (31.0-36.0); Mean Corpuscular Hemoglobin 32.4 pg (27.0-33.0); Mean Corpuscular Volume 93.5 fL (80.0-98.0); Mean Platelet Volume 8.9 fL (9.4-12.4); Monocytes Absolute Auto 0.7 X10*3/uL (0.1-1.2); Monocytes Percent Auto 7.9 % (2-11); Neutrophils Absolute Auto 6.8 x10*3/uL (2.0-8.3); Neutrophils Percent Auto 79.9 % (45-73); Platelet Count 157 X10*3/uL (160-400); Red Blood Count 4.17 X10*6/uL (4.60-5.80); Red Cell Distribution Width 13.1 % (11.0-16.0); White Blood Count 8.5 X10*3/uL (4.8-10.8)
[2025-02-06 15:34] LABS: Prothrombin Time 11.3 SEC (10.9-12.4)
[2025-02-06 15:54] LABS: Alanine Aminotransferase 24 U/L (0-40); Albumin Level 3.9 g/dL (3.5-5.0); Alkaline Phosphatase 53 U/L (39-117); Anion Gap 12 (12-20); Aspartate Amino Transferase 27 U/L (5-37); Bilirubin Direct 0.2 mg/dL (0.0-0.5); Bilirubin Total 0.7 mg/dL (0.0-1.0); Blood Urea Nitrogen 13 mg/dL (9-16); Calcium 8.9 mg/dL (8.4-10.2); Carbon Dioxide 28 mmol/L (22-29); Chloride 108 mmol/L (96-108); Creatinine Clr Calc Pharmacy 74.9; Estimated Glomerular Filt Rate > 60; Glucose Random 119 mg/dL (60-115); Lipase 82 U/L (8-78); Potassium 4.6 mmol/L (3.3-5.1); Sodium 143 mmol/L (135-145); Total Protein 6.1 g/dL (6.5-8.0)
[2025-02-06 15:55] LABS: Troponin-I High Sensitivity 7.3 ng/L (<3.5-35.0)
--- NOTE | 2025-02-06 16:30 | PM.IMHP ---
History of Present Illness Date of Service: 02/06/25 Chief Complaint: Hip pain, fall A 74 years old male with PMH of DMII, asthma, HTN, DAVEY among others presenting to ED after sustaining mechanical fall at home. The patient tripped and fell in his garage. reported losing balance and started to complain of sudden onset left hip pain. denies LOC or lightheadedness. No chest pain, palpitations, SOB, nausea, vomiting, diarrhea or urinary symptoms. In ED XR showed left hip fracture. discussed with orthopedic team who plans for surgical intervention by tomorrow. Admitted for further management inpatient. Review of Systems Review of Systems: No fever, chills or weakness No chest pain, palpitation No shortness of breath or coughing No abdominal pain, nausea or vomiting No urinary symptoms No any rash or wounds left hip pain PMFSH Medical History SOB (shortness of breath) on exertion Impacted cerumen of both ears Aortic dilatation Cholelithiasis Obstructive sleep apnea Erectile dysfunction Hypercholesterolemia Peripheral neuropathy Asthma Type 2 diabetes mellitus with hyperglycemia Chronic low back pain Hypertension Family History Mother Mental health disorder Surgical History S/P ORIF (open reduction internal fixation) fracture History of left knee replacement History of total right knee replacement History of right hip replacement History of pericardiectomy H/O lumbar discectomy Social History Housing: House Alcohol intake: current Alcohol intake frequency: a few times a week Comment: once a week 1 drinks Patient Tobacco Use Status: Former Tobacco user Tobacco use type: Cigarette Years Smoked: stopped 1994 e-Cigarette/Vaping Use: Never Used Second Hand Smoke Exposure: Yes Advance Directives: Yes Advance Directives on File: Yes Advance Directives Date on File: 12/26/21 Do you have a plan to hurt others: No Plan service: Yes Current occupational status: retired Cognitive needs: No Hearing needs: Yes Vision needs: Yes Meds Allergies Allergy/AdvReac Type Severity Reaction Status Date / Time terbinafine [From LAMISIL] AdvReac Intermediate GI UPSET Verified 02/06/25 14:15 Lamisil Allergy Unknown Stomach Uncoded 12/15/24 14:22 Upset Home Medications ?Medication ?Instructions ?Recorded ?Confirmed ?Last Taken ?Type CPAP #1 ea 12/03/20 06/20/24 Unknown History Physical Exam Vital Signs and Narrative: Vital Signs: Last Vital Signs Pulse 97 02/06/25 14:12 Resp 16 02/06/25 14:12 BP 123/71 02/06/25 14:12 Pulse Ox 97 02/06/25 14:12 O2 Del Method Room Air 02/06/25 14:12 BMI result Body Mass Index 40.7 Const: Other: Constitutional : Awake, interactive, not in distress Neck : Normal inspection, Supple Cardiovascular : RRR, no JVP, no lower extremity edema Respiratory : good bilateral air entry, no crackles, wheezes or rhonchi Gastrointestinal: soft, lax, Normal bowel sounds, Non tender Skin : Warm, Dry ExtremitiesL: left leg shorter and externally rotated Neurological : Alert & oriented x3, No focal deficit Results Labs 02/06/25 15:21 02/06/25 15:21 Labs: Laboratory Results - last 24 hr 02/06/25 15:21 MCV 93.5 MCH 32.4 MCHC 34.6 RDW 13.1 Plt Count 157 L MPV 8.9 L Immature Gran % (Auto) 0.5 H Neut % (Auto) 79.9 H Lymph % (Auto) 10.0 L [place] % (Auto) 7.9 Eos % (Auto) 1.2 Baso % (Auto) 0.5 Lymph # (Auto) 0.9 L [place] # (Auto) 0.7 Eos # (Auto) 0.1 Baso # (Auto) 0.0 Abs Immat Gran (auto) 0.04 H Absolute Neuts (auto) 6.8 Absolute Nucleated RBC 0.000 Nucleated RBC % (auto) 0.0 PT 11.3 INR 1.0 Anion Gap 12 Estim Creat Clear Calc 74.9 Estimated GFR > 60 Random Glucose 119 H Calcium 8.9 Total Bilirubin 0.7 Direct Bilirubin 0.2 AST 27 ALT 24 Alkaline Phosphatase 53 Total Protein 6.1 L Albumin 3.9 Lipase 82 H Imaging Radiologist's Impressions: Impressions Hip/Pelvis X-Ray 02/06/25 14:28 IMPRESSION: Mildly displaced fracture of the left femoral neck. Electronically signed by: Mac Zamora MD 02/06/2025 03:04 PM EDT RP Chest X-Ray 02/06/25 14:42 IMPRESSION: Nodular opacity at the medial aspect of the left lung base. Further evaluation with chest CT is advised. Electronically signed by: Mac Zamora MD 02/06/2025 03:07 PM EDT RP Assessment and Plan (1) Closed fracture of left hip: Status: Acute Plan A 74 years old male with PMH of DMII, asthma, HTN, DAVEY among others presenting to ED after sustaining mechanical fall at home. Left hip fracture, acute mechanical in nature Orthopedic consulted Keep NPO over mignight The patient carries mild-mod Addis-op cardiopulmonary risk, no further work up needed, can go ahead with surgery Type 2 DM SSI diabetic diet Hold PO Medications HLD Statin Sleeping problem Trazodone PRN Pending med rec DVT PPx Heparin for now The patient will need 2 overnight hospital stay pending surgical intervention Quality Stroke Does the patient have a stroke diagnosis?: No VTE Prior VTE?: No VTE Risk Level:: Medical - moderate - high VTE Device Contraindication: Treatment Not Indicated VTE Drug Contraindication: N/A - Med Ordered
[2025-02-06] MEDS: Heparin Sodium,Porcine 5,000 UNIT/ML VIAL 5000 UNIT SUBCUT (17:44)
--- NOTE | 2025-02-06 18:24 | PM.CNOR ---
History of Present Illness HPI Consult date: 02/06/25 Chief complaint: Fall, hip fracture Narrative: 74 yo male with PMH significant for controlled DM II on ozempic , hypertension, hypercholesterolemia, and asthma admitted to the medical service after presenting to the emergency department due to a fall at home and sustaining a left femoral neck fracture. The patient states prior to arrival he was at his home in the driveway when his left hip gave out and he fell. He is quite active. He is retired but still works part-time at [employer]. He states he has been experiencing some left hip spasms that cause some difficulty with ambulation and weakness. There was a point where he was using a walker to ambulate however recently he progress to a cane. Prior to the fall he was doing some yd work without difficulty. He states he lives at home with his . Of note he has a right total hip arthroplasty, done over [address] Mckinney which was then complicated by a periprosthetic fracture. He now has a femoral plate He also has bilateral total knee arthroplasties which were done by Dr. Walls. He states he recovered well from both arthroplasty surgeries. After the periprosthetic fracture surgery he did need to go to a short-term rehab. Orthopedics was consulted to discuss further recommendations. Review of Systems Review of Systems: Yes all other systems are reviewed and are negative PMFSH Past Medical History Medical History SOB (shortness of breath) on exertion Impacted cerumen of both ears Aortic dilatation Cholelithiasis Obstructive sleep apnea Erectile dysfunction Hypercholesterolemia Peripheral neuropathy Asthma Type 2 diabetes mellitus with hyperglycemia Chronic low back pain Hypertension Family History Family History Mother Mental health disorder Surgical History Surgical History S/P ORIF (open reduction internal fixation) fracture History of left knee replacement History of total right knee replacement History of right hip replacement History of pericardiectomy H/O lumbar discectomy Social History Social History Housing: House Alcohol intake: current Alcohol intake frequency: a few times a week Comment: once a week 1 drinks Patient Tobacco Use Status: Former Tobacco user Tobacco use type: Cigarette Years Smoked: stopped 1994 e-Cigarette/Vaping Use: Never Used Second Hand Smoke Exposure: Yes Advance Directives: Yes Advance Directives on File: Yes Advance Directives Date on File: 12/26/21 Do you have a plan to hurt others: No Plan service: Yes Current occupational status: retired Cognitive needs: No Hearing needs: Yes Vision needs: Yes Meds Allergies Allergy/AdvReac Type Severity Reaction Status Date / Time terbinafine [From LAMISIL] AdvReac Intermediate GI UPSET Verified 02/06/25 14:15 Lamisil Allergy Unknown Stomach Uncoded 12/15/24 14:22 Upset Active Medications: Current Medications Acetaminophen (Acetaminophen 325 Mg Tablet) 650 mg PO Q6H PRN PRN Reason: Pain, Mild 1-3,fever,headache Calcium Carbonate (Calcium Carbonate 750 Mg Tab.Chew) 750 mg PO Q4H PRN PRN Reason: Heartburn Heparin Sodium (Porcine) (Heparin Sodium,Porcine 5,000 Unit/Ml Vial) 5,000 unit SUBCUT Q8H [facility] Stop: 02/07/25 00:46 Last Admin: 02/06/25 17:44 Dose: 5,000 unit Ibuprofen (Ibuprofen 400 Mg Tablet) 400 mg PO Q6H PRN PRN Reason: Fever or Pain, Mild (Pain Scale 1-3) Magnesium Hydroxide (Milk Of Magnesia 30 Ml Oral.Susp) 30 ml PO DAILY PRN PRN Reason: Constipation Melatonin (Melatonin 3 Mg Tablet) 6 mg PO BEDTIME PRN PRN Reason: Insomnia Ondansetron HCl (Ondansetron Hcl 4 Mg/2 Ml Vial) 4 mg IVPUSH Q8H PRN PRN Reason: Nausea and Vomiting Oxycodone HCl (Oxycodone Hcl Immed Release 5 Mg Tablet) 5 mg PO Q6H PRN PRN Reason: Pain, Severe (Pain Scale 7-10) Sodium Chloride (0.9 % Sodium Chloride Flush 3 Ml Syringe) 3 [facility] Medications ?Medication ?Instructions ?Recorded ?Confirmed ?Last Taken ?Type CPAP #1 ea 12/03/20 06/20/24 Unknown History Physical Exam Vital Signs: Vital Signs: Last Vital Signs Temp 97.9 F 02/06/25 17:18 Pulse 93 02/06/25 17:18 Resp 18 02/06/25 17:18 BP 132/78 02/06/25 17:18 Pulse Ox 92 02/06/25 17:18 O2 Del Method Room Air 02/06/25 17:18 BMI result Body Mass Index 40.7 Const: General: cooperative, healthy appearing, comfortable and no acute distress Extrem: Other: left hip shortened and ER. Unable to SLR. He is able to dorsi flex and plantar flex the let foot. NVI. Results Labs 02/06/25 15:21 02/06/25 15:21 Labs: Abnormal lab results 02/06/25 Range/Units 15: RBC 4.17 L (4.60-5.80) X10*6/uL Hgb 13.5 L (14.0-18.0) g/dl Hct 39.0 L (42.0-52.0) % Plt Count 157 L (160-400) X10*3/uL MPV 8.9 L (9.4-12.4) fL Immature Gran % (Auto) 0.5 H (0.0-0.4) % Neut % (Auto) 79.9 H (45-73) % Lymph % (Auto) 10.0 L (20-40) % Lymph # (Auto) 0.9 L (1.2-4.9) X10*3/uL Abs Immat Gran (auto) 0.04 H (0.00-0.03) X10*3/uL Random Glucose 119 H (60-115) mg/dL Total Protein 6.1 L (6.5-8.0) g/dL Lipase 82 H (8-78) U/L H & H 02/06/25 Range/Units 15:21 Hgb 13.5 L (14.0-18.0) g/dl Hct 39.0 L (42.0-52.0) % Coagulation 02/06/25 Range/Units 15:21 INR 1.0 (0.9-1.1) All other labs normal. Diagnostic results Hip x-ray: image reviewed (left femoral neck fracture ) Assessment and Plan (1) Left displaced femoral neck fracture: Status: Acute Plan I discussed the case with Dr Barreto and explained the extent of the injury to the patient and options available which include surgical intervention. I explained the procedure in detail along with the length of recovery and rehab course. I explained the risk, benefits and alternatives. Risk including, but not limited to infection, blood clots, bleeding, non union or malunion , fracture, dislocation and nerve/tissue damage to surrounding areas. I answered all their questions and with their understanding they have consented to move forward with Operative Fixation of the left hip . The patient will be T&S, med clearance obtained and NPO after midnight. Procedures Date of Service Date of Service: 02/06/25
[2025-02-06] MEDS: oxyCODONE HCl Immed Release 5 MG TABLET PO (20:12)
--- NOTE | 2025-02-06 20:28 | PHA.MEDREC ---
Addendum entered by Dylon Mccarthy [facility] 02/06/25 20:40: med rec reviewed Original Note: Pharmacy Consult ? Medication Reconciliation Pharmacy has completed the medication reconciliation. Confirmed medications with pt and pt at bedside. Pt confirmed recently his Metformin 500mg tab changed and states he takes Metformin 500mg tabs QD now in stead of BID, confirming that changed in the last few weeks by is Dr due to his A1C levels going down since starting on Ozempic. Pt confirmed the Ozempic once a week on Sundays and took it this past Wednesday.
[2025-02-06 20:55] LABS: Glucose, Whole Blood 119 mg/dL (60-115)
[2025-02-06] MEDS: 0.9 % Sodium Chloride Flush 3 ML SYRINGE IVFLUSH (21:19)
[2025-02-06] MEDS: Atorvastatin Calcium 20 MG TABLET PO (21:42)
[2025-02-06] MEDS: Gabapentin 600 MG TABLET PO (21:43)
[2025-02-06] MEDS: traZODone HCL 100 MG TABLET PO (21:43)
[2025-02-06] MEDS: HYDROmorphone HCl 0.5 MG/0.5 ML SYRINGE IVPUSH (23:06)
[2025-02-07] VITALS (12 sets, daily range): BP systolic 115–146; BP diastolic 56–89; PULSE 64–110; RESP 14–22; TEMP 36.1–37.3; O2SAT 90–97
[2025-02-07 00:13] LABS: Appearance Urine Clear; Color Urine Yellow; Glucose Urine UA Negative (Negative); Leukocyte Esterase Urine Negative (Negative); Nitrite Urine Negative (Negative); Urine Blood Negative (Negative); Urine Ketones 15 mg/dL (Negative); Urine Protein Negative (Neg-Trace)
[2025-02-07] MEDS: HYDROmorphone HCl 0.5 MG/0.5 ML SYRINGE IVPUSH (03:34)
[2025-02-07 07:18] LABS: Glucose, Whole Blood 139 mg/dL (60-115)
[2025-02-07 07:20] LABS: MANUAL DIFF FLAG NO
[2025-02-07 07:27] LABS: Basophils Absolute Auto 0.1 X10*3/uL (0.0-0.2); Basophils Percent Auto 0.6 % (0-2); Eosinophils Absolute Auto 0.3 X10*3/uL (0.0-0.4); Eosinophils Percent Auto 3.7 % (0-4); Hematocrit 41.5 % (42.0-52.0); Imm Gran Abs Auto 0.05 X10*3/uL (0.00-0.03); Imm Gran Pct Auto 0.5 % (0.0-0.4); Lymphocytes Absolute Auto 1.1 X10*3/uL (1.2-4.9); Lymphocytes Percent Auto 11.8 % (20-40); Mean Corpuscular HGB Conc 33.7 g/dl (31.0-36.0); Mean Corpuscular Hemoglobin 32.3 pg (27.0-33.0); Mean Corpuscular Volume 95.8 fL (80.0-98.0); Mean Platelet Volume 9.5 fL (9.4-12.4); Monocytes Percent Auto 10.3 % (2-11); Neutrophils Absolute Auto 6.8 x10*3/uL (2.0-8.3); Neutrophils Percent Auto 73.1 % (45-73); Platelet Count 171 X10*3/uL (160-400); Red Blood Count 4.33 X10*6/uL (4.60-5.80); White Blood Count 9.3 X10*3/uL (4.8-10.8)
[2025-02-07 07:40] LABS: Anion Gap 12 (12-20); Blood Urea Nitrogen 12 mg/dL (9-16); Calcium 8.9 mg/dL (8.4-10.2); Carbon Dioxide 29 mmol/L (22-29); Chloride 104 mmol/L (96-108); Estimated Glomerular Filt Rate > 60; Glucose Random 131 mg/dL (60-115); Potassium 4.3 mmol/L (3.3-5.1); Sodium 141 mmol/L (135-145)
[2025-02-07] MEDS: Multivitamin TABLET 1 TAB PO (08:11)
[2025-02-07] MEDS: Cholecalciferol (Vitamin D3) 25 MCG TABLET 50 MCG PO (08:11)
[2025-02-07] MEDS: 0.9 % Sodium Chloride Flush 3 ML SYRINGE IVFLUSH (08:12)
[2025-02-07] MEDS: Fluticasone Propionate Nasal 16 GM SPRAY 2 SPRAY NOSTRIL-B (08:14)
--- NOTE | 2025-02-07 10:23 | PC.NURSE ---
Patient IV #20 Right AC is patent, dressing clean dry intact.
[2025-02-07 10:38] LABS: Glucose, Whole Blood 112 mg/dL (60-115)
--- NOTE | 2025-02-07 10:39 | P.CONAN_ITS ---
HPI - Anesthesia Eval Anesthesia Pre-Procedure Meds Is the patient on any of the following meds?: SGLT2 Inhib If yes to any meds - educate patient: Pt education - increased risk of aspiration and/or euvolemic DKA PMFSH Active Problems Active Problems: All Active Problems Left displaced femoral neck fracture (Acute) Lung nodule (Acute) Closed fracture of left hip (Acute) Ear lesion (Acute) Tinea pedis (Acute) Morbid obesity (Acute) Constipation (Acute) Essential tremor (Acute) Encounter for subsequent annual wellness visit (AWV) in Medicare patient (Acute) Degenerative cervical disc (Acute) Fall (Acute) Left shoulder pain (Acute) Erectile dysfunction (Acute) Medicare annual wellness visit, initial (Acute) Obstructive sleep apnea (Acute) Hypercholesterolemia (Acute) Peripheral neuropathy (Acute) Asthma (Acute) Type 2 diabetes mellitus with hyperglycemia (Acute) Chronic low back pain (Acute) Hypertension (Acute) Past Medical History Medical History SOB (shortness of breath) on exertion Impacted cerumen of both ears Aortic dilatation Cholelithiasis Obstructive sleep apnea Erectile dysfunction Hypercholesterolemia Peripheral neuropathy Asthma Type 2 diabetes mellitus with hyperglycemia Chronic low back pain Hypertension Cognitive capacity: no issues with cognition. patient is alwert , awake W Functional capacity: uses cane/walker Narrative: patient was using a cane mostly prior to thid s fracture Family History Family History Mother Mental health disorder Family history of problems with anesthesia: No Surgical History Surgical History S/P ORIF (open reduction internal fixation) fracture History of left knee replacement History of total right knee replacement History of right hip replacement History of pericardiectomy H/O lumbar discectomy History of Problems with Anesthesia: No Social History Social History Household Members: Spouse Housing: House Do you presently have visiting nurse or other home services: No Alcohol intake: current Alcohol intake frequency: holidays/special occasions only Comment: once a week 1 drinks Patient Tobacco Use Status: Former Tobacco user Tobacco use type: Cigarette Years Smoked: 1994 e-Cigarette/Vaping Use: Never Used Second Hand Smoke Exposure: Yes Advance Directives Date on File: 12/26/21 service: Yes Current occupational status: retired Cognitive needs: No Hearing needs: Yes Vision needs: Yes Meds Allergies Allergy/AdvReac Type Severity Reaction Status Date / Time terbinafine [From LAMISIL] AdvReac Intermediate GI UPSET Verified 02/07/25 10:50 Lamisil Allergy Unknown Stomach Uncoded 02/07/25 10:50 Upset Active Medications: Current Medications Acetaminophen (Acetaminophen 325 Mg Tablet) 650 mg PO Q6H PRN PRN Reason: Pain, Mild 1-3,fever,headache Atorvastatin Calcium (Atorvastatin Calcium 20 Mg Tablet) 20 mg PO BEDTIME [facility] Last Admin: 02/06/25 21:42 Dose: 20 mg Calcium Carbonate (Calcium Carbonate 750 Mg Tab.Chew) 750 mg PO Q4H PRN PRN Reason: Heartburn Dextrose (Dextrose 50 % 25 Gm/50 Ml Syringe) 25 gm IVPUSH Q15M PRN; Protocol PRN Reason: per Hypoglycemia Standing Ord. Fluticasone Propionate (Fluticasone Propionate Nasal 16 Gm [place]) 2 spray NOSTRIL-B DAILY [facility] Last Admin: 02/07/25 08:14 Dose: 2 spray Gabapentin (Gabapentin 600 Mg Tablet) 600 mg PO BEDTIME [facility] Last Admin: 02/06/25 21:43 Dose: 600 mg Glucose (Glucose Gel 15 Gm Gel..Gram.) 15 gm PO Q15M PRN; Protocol PRN Reason: per Hypoglycemia Standing Ord. Hydromorphone HCl (Hydromorphone Hcl 0.5 Mg/0.5 Ml Syringe) 0.5 mg IVPUSH Q3H PRN; Protocol PRN Reason: Pain, Severe (Pain Scale 7-10) Last Admin: 02/07/25 03:34 Dose: 0.5 mg Cefazolin Sodium/Dextrose (Ancef) 2 gm in 50 mls @ 100 mls/hr IV PREOP ONE Stop: 02/07/25 12:29 Insulin Human Lispro (Insulin Lispro 100 Unit/Ml 3 Ml Vial) 0 unit SUBCUT QIDACHS [facility]; Protocol Last Admin: 02/07/25 07:51 Dose: Not Given Lactulose (Lactulose 20 Gm/30 Ml Solution) 20 gm PO BID PRN PRN Reason: Constipation Magnesium Hydroxide (Milk Of Magnesia 30 Ml Oral.Susp) 30 ml PO DAILY PRN PRN Reason: Constipation Melatonin (Melatonin 3 Mg Tablet) 6 mg PO BEDTIME PRN PRN Reason: Insomnia Multivitamins/Vitamin C (Multivitamin Tablet) 1 tab PO DAILY [facility] Last Admin: 02/07/25 08:11 Dose: 1 tab Ondansetron HCl (Ondansetron Hcl 4 Mg/2 Ml Vial) 4 mg IVPUSH Q8H PRN PRN Reason: Nausea and Vomiting Oxycodone HCl (Oxycodone Hcl Immed Release 5 Mg Tablet) 5 mg PO Q6H PRN PRN Reason: Pain, Moderate(Pain Scale 4-6) Sodium Chloride (0.9 % Sodium Chloride Flush 3 Ml Syringe) 3 ml IVFLUSH QSHIFT [facility] Last Admin: 02/07/25 08:12 Dose: 3 ml Trazodone HCl (Trazodone Hcl 100 Mg Tablet) 100 mg PO BEDTIME [facility] Last Admin: 02/06/25 21:43 Dose: 100 mg Vitamin D (Cholecalciferol (Vitamin D3) 25 Mcg Tablet) 50 mcg PO DAILY [facility] Last Admin: 02/07/25 08:11 Dose: 50 mcg Home Medications ?Medication ?Instructions ?Recorded ?Confirmed ?Last Taken ?Type CPAP #1 ea 12/03/20 06/20/24 Unknown History cholecalciferol (vitamin D3) 50 50 mcg PO DAILY 02/06/25 02/06/25 02/06/25 History mcg (2,000 unit) capsule (Vitamin D3) gabapentin 600 mg tablet 600 mg PO BEDTIME 02/06/25 02/06/25 02/05/25 History glucosamine HCl 1,500 mg tablet 1,500 mg PO BID 02/06/25 02/06/25 02/06/25 History lactulose 10 gram/15 mL oral 20 g PO BID PRN Constipation 02/06/25 02/06/25 Unknown History solution metformin 500 mg tablet 500 mg PO DAILY 02/06/25 02/06/25 02/06/25 History ajgszeesjekv-hkmcxyhd-mrhftf 1 tab PO DAILY 02/06/25 02/06/25 02/06/25 History tablet (Multivitamin 50 Plus tablet) mupirocin 2 % topical ointment 1 appl topical BID PRN Sores 02/06/25 02/06/25 Unknown History neomycin-bacitracn Zn-polymyxn 3.5 1 appl topical QID PRN sores 02/06/25 02/06/25 Unknown History mg-400 unit-5,000 unit top oint pkt (Neosporin(mhh-oxn-xawze)) Exam Exam Date and Time: feb 07 2025 Height,Weight and Vital Signs: h Height 5 ft 9 in Weight 121.2 kg Last Vital Signs Temp 99.2 F 02/07/25 10:38 Pulse 84 02/07/25 10:38 Resp 18 02/07/25 10:38 BP 127/61 02/07/25 10:38 Pulse Ox 95 02/07/25 10:38 O2 Del Method Room Air 02/07/25 10:38 O2 Flow Rate 2 02/07/25 03:25 Pertinent Lab Results Pertinent Lab Results: Laboratory Tests 02/06/25 02/06/25 02/06/25 15:21 15:22 20:51 WBC 8.5 RBC 4.17 L Hgb 13.5 L Hct 39.0 L MCV 93.5 MCH 32.4 MCHC 34.6 RDW 13.1 Plt Count 157 L MPV 8.9 L Immature Gran % (Auto) 0.5 H Neut % (Auto) 79.9 H Lymph % (Auto) 10.0 L [place] % (Auto) 7.9 Eos % (Auto) 1.2 Baso % (Auto) 0.5 Lymph # (Auto) 0.9 L [place] # (Auto) 0.7 Eos # (Auto) 0.1 Baso # (Auto) 0.0 Abs Immat Gran (auto) 0.04 H Absolute Neuts (auto) 6.8 Absolute Nucleated RBC 0.000 Nucleated RBC % (auto) 0.0 PT 11.3 INR 1.0 Sodium 143 Potassium 4.6 Chloride 108 Carbon Dioxide 28 Anion Gap 12 BUN 13 Creatinine 1.13 Estim Creat Clear Calc 74.9 Estimated GFR > 60 POC Glucose 119 H Random Glucose 119 H Calcium 8.9 Total Bilirubin 0.7 Direct Bilirubin 0.2 AST 27 ALT 24 Alkaline Phosphatase 53 Troponin I High Sens 7.3 Total Protein 6.1 L Albumin 3.9 Lipase 82 H Urine Color Urine Appearance Urine pH Ur Specific [place] Urine Protein Urine Glucose (UA) Urine Ketones Urine Blood Urine Nitrite Ur Leukocyte Esterase 05/27/25 05/28/25 05/28/25 23:47 07:06 07:14 WBC 9.3 RBC 4.33 L Hgb 14.0 Hct 41.5 L MCV 95.8 MCH 32.3 MCHC 33.7 RDW 13.0 Plt Count 171 MPV 9.5 Immature Gran % (Auto) 0.5 H Neut % (Auto) 73.1 H Lymph % (Auto) 11.8 L [place] % (Auto) 10.3 Eos % (Auto) 3.7 Baso % (Auto) 0.6 Lymph # (Auto) 1.1 L [place] # (Auto) 1.0 Eos # (Auto) 0.3 Baso # (Auto) 0.1 Abs Immat Gran (auto) 0.05 H Absolute Neuts (auto) 6.8 Absolute Nucleated RBC 0.000 Nucleated RBC % (auto) 0.0 PT INR Sodium 141 Potassium 4.3 Chloride 104 Carbon Dioxide 29 Anion Gap 12 BUN 12 Creatinine 0.98 Estim Creat Clear Calc 85.0 Estimated GFR > 60 POC Glucose 139 H Random Glucose 131 H Calcium 8.9 Total Bilirubin Direct Bilirubin AST ALT Alkaline Phosphatase Troponin I High Sens Total Protein Albumin Lipase Urine Color Yellow Urine Appearance Clear Urine pH 6.0 Ur Specific [place] 1.020 Urine Protein Negative Urine Glucose (UA) Negative Urine Ketones 15 Urine Blood Negative Urine Nitrite Negative Ur Leukocyte Esterase Negative 02/07/25 10:30 WBC RBC Hgb Hct MCV MCH MCHC RDW Plt Count MPV Immature Gran % (Auto) Neut % (Auto) Lymph % (Auto) [place] % (Auto) Eos % (Auto) Baso % (Auto) Lymph # (Auto) [place] # (Auto) Eos # (Auto) Baso # (Auto) Abs Immat Gran (auto) Absolute Neuts (auto) Absolute Nucleated RBC Nucleated RBC % (auto) PT INR Sodium Potassium Chloride Carbon Dioxide Anion Gap BUN Creatinine Estim Creat Clear Calc Estimated GFR POC Glucose 112 Random Glucose Calcium Total Bilirubin Direct Bilirubin AST ALT Alkaline Phosphatase Troponin I High Sens Total Protein Albumin Lipase Urine Color Urine Appearance Urine pH Ur Specific [place] Urine Protein Urine Glucose (UA) Urine Ketones Urine Blood Urine Nitrite Ur Leukocyte Esterase Airway Mallampati Class: III TM Dist: >3cm Neck ROM: Full Heart: rrr Lungs: cta Other: neurocognitively intact Assessment and Plan Final Anesthetic Review Family History of Problems with Anesthesia: No History of Problems with Anesthesia: No NPO: Yes ASA Class: III Final Preanesthetic Review: No Changes in Pt Med Stat, Meds/Allgs Chart Reviewed, Consent Obtained/Reviewed and Anes Risks/Benef Reviewed Patient Risk: Intermediate Procedure Risk: Intermediate Anesthetic Plan Anesthetic Plan: GA Disposition: Standard PACU
--- NOTE | 2025-02-07 11:39 | MHC.SHP ---
Pre-Procedural Eval Section A - 24 Hr Update-Section A only Date of Service: 02/07/25 The patient is an INPATIENT: Yes Changes since office visit: No Cold of Flu in the past 2 weeks, No New Medical Problems, No Changes in Medication and No Patient answered all questions The patient has been examined within 24 hours of the surgical procedure. The History & Physical has been completed within 30 days and I have reviewed it.: Yes Section B - Complete if H&P > 30 days Chief Complaint: Fall, hip fracture Allergies: Allergies Allergy/AdvReac Type Severity Reaction Status Date / Time terbinafine [From LAMISIL] AdvReac Intermediate GI UPSET Verified 02/07/25 10:50 Lamisil Allergy Unknown Stomach Uncoded 02/07/25 10:50 Upset Plan I have reviewed the history and physical and performed a pertinent physical examination on my patient. No changes have occurred unless specified. Time Spent With Patient Time: Total time managing care of this patient today ____ minutes.
[2025-02-07] MEDS: ceFAZolin Sodium/Dextrose,Iso 2 GM/50 ML PIGGYBACK IV (12:15)
--- NOTE | 2025-02-07 13:51 | PM.OP ---
Brief Operative Note Date of Service: 02/07/25 Pre-op diagnosis: Left femoral neck fx Post-op diagnosis: same Procedure: Left hip vishal Implants: [place] Accolade2 127 #6 and + bipolar Surgeon: Pedro Barreto MD Anesthesia: GETA and local Was an Assistant Branch Operations Manager used for this Procedure?: Yes Assistant Branch Operations Manager: Cynthia Thompson Estimated blood loss (mL): 250 IV fluids (mL): 1,000 Pathology: other Condition: stable Disposition: PACU
--- NOTE | 2025-02-07 13:52 | W.PM.OPN ---
Operative Note Operative Note Date of Service: 02/07/25 Narrative: Date of Service: 02/07/25 Pre-op diagnosis: Left femoral neck fx Post-op diagnosis: same Procedure: Left hip vishal Implants: [place] Accolade2 127 #6 and +0/26/50 bipolar Surgeon: Pedro Barreto MD Anesthesia: GETA and local Was an Academic Advisement Director used for this Procedure?: Yes Academic Advisement Director: Cynthia Thompson Estimated blood loss (mL): 250 IV fluids (mL): 1,000 Pathology: other Condition: stable Disposition: PACU Procedure in detail: Patient was brought to the operative room placed in the lateral decubitus position. All bony prominences were well padded and the was prepped and draped in standard sterile fashion. IV antibiotics per weight were administered and a time-out was called to identify proper site proper procedure proper surgeon. Radiographs were available and confirmed. I began by making a curvilinear incision over the posterolateral aspect of the greater trochanter. Dissection was taken down to the tensor fascia which was incised in line with the incision and a Charnley retractor was placed. There was abundant adipose tissue and a large gluteus so the approach was slowed. The hip was internally rotated and the external rotators were identified. All vessels in the area were cauterized and a full-thickness capsular/external rotator layer was developed in a hockey-stick fashion starting just proximal to the piriformis. This layer was tagged and the displaced femoral neck fracture was identified. Clean-up cuts was performed while protecing the posterolateral soft tissues. Much of the neck was piecemeal removed and the head was removed and measured (50mm) on the back table. I then copiously irrigated the acetabulum and removed all bony fragments. Once this was done I used a [employer] cutter to lateralize and a Charnley awl to identify the canal and then sequentially broached up to a 127 deg #6. I then trialed with a standard head and a bipolar component matching the femoral head size. I was satisfied with the range of motion and stability and length. Therefore I removed all instrumentation and copiously irrigated. I then placed my final #6 femoral implant and then retrialed. I was satisfied with the +0/50 implants. My final bipolar components were then placed. I closed the capsular layer with FiberWire and then copiously irrigated. I performed a layered closure with guero on skin. The patient was placed in sterile dressing extubated brought to recovery room in stable condition there were no known complications.
--- NOTE | 2025-02-07 14:45 | P.PNIM_ITS ---
Subjective Subjective Date of Service: 02/07/25 Interval History: seen and evaluated this morning planb for surgery no issues Review of Systems No fever, chills or weakness No chest pain, palpitation No shortness of breath or coughing No abdominal pain, nausea or vomiting No urinary symptoms No any rash or wounds left hip pain Physical Exam 2 Vital Signs: Vital Signs: Last Vital Signs Temp 97.9 F 02/07/25 14:23 Pulse 88 02/07/25 14:38 Resp 22 H 02/07/25 14:38 BP 146/84 H 02/07/25 14:38 Pulse Ox 97 02/07/25 14:38 O2 Del Method Room Air 02/07/25 14:38 O2 Flow Rate 2 02/07/25 14:38 BMI result Body Mass Index 39.5 Const: Other: Constitutional : Awake, interactive, not in distress Neck : Normal inspection, Supple Cardiovascular : RRR, no JVP, no lower extremity edema Respiratory : good bilateral air entry, no crackles, wheezes or rhonchi Gastrointestinal: soft, lax, Normal bowel sounds, Non tender Skin : Warm, Dry ExtremitiesL: left leg shorter and externally rotated Neurological : Alert & oriented x3, No focal deficit Objective Data Active Medications Acetaminophen (Acetaminophen 325 Mg Tablet) 650 mg PO Q6H PRN PRN Reason: Pain, Mild 1-3,fever,headache Atorvastatin Calcium (Atorvastatin Calcium 20 Mg Tablet) 20 mg PO BEDTIME [facility] Last Admin: 02/06/25 21:42 Dose: 20 mg Documented By: LYSDwayne Calcium Carbonate (Calcium Carbonate 750 Mg Tab.Chew) 750 mg PO Q4H PRN PRN Reason: Heartburn Dextrose (Dextrose 50 % 25 Gm/50 Ml Syringe) 25 gm IVPUSH Q15M PRN; Protocol PRN Reason: per Hypoglycemia Standing Ord. Fentanyl (Fentanyl Citrate/Pf 100 Mcg/2 Ml Vial) 50 mcg IVPUSH Q5M PRN PRN Reason: Pain, Moderate to Severe (Pain Scale 4-10) Stop: 02/07/25 16:59 Fluticasone Propionate (Fluticasone Propionate Nasal 16 Gm [place]) 2 spray NOSTRIL-B DAILY [facility] Last Admin: 02/07/25 08:14 Dose: 2 spray Documented By: GRAZIC Gabapentin (Gabapentin 600 Mg Tablet) 600 mg PO BEDTIME [facility] Last Admin: 02/06/25 21:43 Dose: 600 mg Documented By: MICHEAL Glucose (Glucose Gel 15 Gm Gel..Gram.) 15 gm PO Q15M PRN; Protocol PRN Reason: per Hypoglycemia Standing Ord. Hydromorphone HCl (Hydromorphone Hcl 0.5 Mg/0.5 Ml Syringe) 0.5 mg IVPUSH Q3H PRN; Protocol PRN Reason: Pain, Severe (Pain Scale 7-10) Last Admin: 02/07/25 03:34 Dose: 0.5 mg Documented By: MICHEAL Hydromorphone HCl (Hydromorphone Hcl 0.5 Mg/0.5 Ml Syringe) 0.5 mg IVPUSH Q5M PRN PRN Reason: Pain, Moderate to Severe (Pain Scale 4-10) Stop: 02/07/25 16:59 Lactated Ringer's (Lr) 1,000 mls @ 80 mls/hr IVCONT .[id number] [facility] Insulin Human Lispro (Insulin Lispro 100 Unit/Ml 3 Ml Vial) 0 unit SUBCUT QIDACHS [facility]; Protocol Last Admin: 02/07/25 07:51 Dose: Not Given Documented By: TO Non-Admin Reason: No Insulin Coverage Lactulose (Lactulose 20 Gm/30 Ml Solution) 20 gm PO BID PRN PRN Reason: Constipation Magnesium Hydroxide (Milk Of Magnesia 30 Ml Oral.Susp) 30 ml PO DAILY PRN PRN Reason: Constipation Melatonin (Melatonin 3 Mg Tablet) 6 mg PO BEDTIME PRN PRN Reason: Insomnia Multivitamins/Vitamin C (Multivitamin Tablet) 1 tab PO DAILY [facility] Last Admin: 02/07/25 08:11 Dose: 1 tab Documented By: TO Naloxone HCl (Naloxone Hcl 0.4 Mg/Ml Vial) 0.04 mg IVPUSH Q5M PRN PRN Reason: Excessive sedation or RR < 8 Ondansetron HCl (Ondansetron Hcl 4 Mg/2 Ml Vial) 4 mg IVPUSH Q8H PRN PRN Reason: Nausea and Vomiting Ondansetron HCl (Ondansetron Hcl 4 Mg/2 Ml Vial) 4 mg IVPUSH ONCE PRN PRN Reason: Nausea and Vomiting Stop: 02/07/25 17:00 Oxycodone HCl (Oxycodone Hcl Immed Release 5 Mg Tablet) 5 mg PO Q6H PRN PRN Reason: Pain, Moderate(Pain Scale 4-6) Oxycodone HCl (Oxycodone Hcl Immed Release 5 Mg Tablet) 5 mg PO ONCE PRN PRN Reason: Pain, Moderate(Pain Scale 4-6) if no IV Access Stop: 02/07/25 16:59 Sodium Chloride (0.9 % Sodium Chloride Flush 3 Ml Syringe) 3 ml IVFLUSH QSHIFT [facility] Last Admin: 02/07/25 08:12 Dose: 3 ml Documented By: TO Trazodone HCl (Trazodone Hcl 100 Mg Tablet) 100 mg PO BEDTIME [facility] Last Admin: 02/06/25 21:43 Dose: 100 mg Documented By: MICHEAL Vitamin D (Cholecalciferol (Vitamin D3) 25 Mcg Tablet) 50 mcg PO DAILY [facility] Last Admin: 02/07/25 08:11 Dose: 50 mcg Documented By: TO Labs 02/07/25 07:14 02/07/25 07:14 Labs: Laboratory Results - last 24 hr 02/06/25 02/06/25 02/06/25 15:21 20:51 23:47 MCV 93.5 MCH 32.4 MCHC 34.6 RDW 13.1 Plt Count 157 L MPV 8.9 L Immature Gran % (Auto) 0.5 H Neut % (Auto) 79.9 H Lymph % (Auto) 10.0 L [place] % (Auto) 7.9 Eos % (Auto) 1.2 Baso % (Auto) 0.5 Lymph # (Auto) 0.9 L [place] # (Auto) 0.7 Eos # (Auto) 0.1 Baso # (Auto) 0.0 Abs Immat Gran (auto) 0.04 H Absolute Neuts (auto) 6.8 Absolute Nucleated RBC 0.000 Nucleated RBC % (auto) 0.0 PT 11.3 INR 1.0 Anion Gap 12 Estim Creat Clear Calc 74.9 Estimated GFR > 60 POC Glucose 119 H Random Glucose 119 H Calcium 8.9 Total Bilirubin 0.7 Direct Bilirubin 0.2 AST 27 ALT 24 Alkaline Phosphatase 53 Total Protein 6.1 L Albumin 3.9 Lipase 82 H Urine Color Yellow Urine Appearance Clear Urine pH 6.0 Ur Specific [place] 1.020 Urine Protein Negative Urine Glucose (UA) Negative Urine Ketones 15 Urine Blood Negative Urine Nitrite Negative Ur Leukocyte Esterase Negative Blood Type Antibody Screen 02/07/25 02/07/25 02/07/25 07:06 07:14 10:03 MCV 95.8 MCH 32.3 MCHC 33.7 RDW 13.0 Plt Count 171 MPV 9.5 Immature Gran % (Auto) 0.5 H Neut % (Auto) 73.1 H Lymph % (Auto) 11.8 L [place] % (Auto) 10.3 Eos % (Auto) 3.7 Baso % (Auto) 0.6 Lymph # (Auto) 1.1 L [place] # (Auto) 1.0 Eos # (Auto) 0.3 Baso # (Auto) 0.1 Abs Immat Gran (auto) 0.05 H Absolute Neuts (auto) 6.8 Absolute Nucleated RBC 0.000 Nucleated RBC % (auto) 0.0 PT INR Anion Gap 12 Estim Creat Clear Calc 85.0 Estimated GFR > 60 POC Glucose 139 H Random Glucose 131 H Calcium 8.9 Total Bilirubin Direct Bilirubin AST ALT Alkaline Phosphatase Total Protein Albumin Lipase Urine Color Urine Appearance Urine pH Ur Specific [place] Urine Protein Urine Glucose (UA) Urine Ketones Urine Blood Urine Nitrite Ur Leukocyte Esterase Blood Type A Positive Antibody Screen NEGATIVE 02/07/25 10:30 MCV MCH MCHC RDW Plt Count MPV Immature Gran % (Auto) Neut % (Auto) Lymph % (Auto) [place] % (Auto) Eos % (Auto) Baso % (Auto) Lymph # (Auto) [place] # (Auto) Eos # (Auto) Baso # (Auto) Abs Immat Gran (auto) Absolute Neuts (auto) Absolute Nucleated RBC Nucleated RBC % (auto) PT INR Anion Gap Estim Creat Clear Calc Estimated GFR POC Glucose 112 Random Glucose Calcium Total Bilirubin Direct Bilirubin AST ALT Alkaline Phosphatase Total Protein Albumin Lipase Urine Color Urine Appearance Urine pH Ur Specific [place] Urine Protein Urine Glucose (UA) Urine Ketones Urine Blood Urine Nitrite Ur Leukocyte Esterase Blood Type Antibody Screen Assessment and Plan (1) Left displaced femoral neck fracture: Status: Acute Plan A 74 years old male with PMH of DMII, asthma, HTN, DAVEY among others presenting to ED after sustaining mechanical fall at home. Left hip fracture, acute mechanical in nature Orthopedic consulted Keep NPO Morphine and OXycodone for pain control Type 2 DM SSI diabetic diet Hold PO Medications HLD Statin Sleeping problem Trazodone PRN Pending med rec DVT PPx Heparin for now The patient will need overnight hospital stay pending surgical intervention Quality Stroke Does the patient have a stroke diagnosis?: No VTE Prior VTE?: No VTE Risk Level:: Medical - moderate - high VTE Device Contraindication: Treatment Not Indicated VTE Drug Contraindication: N/A - Med Ordered
--- NOTE | 2025-02-07 14:59 | HO.WOUND ---
Wound Consult: Attempted 74yr old?male admitted to [facility] on 02/06/25- See progress notes and H&P for detailed history.? Wound consult placed for Right Toe wounds.? Patient off unit in the OR at the time of my arrival to bedside will attempt assessment at future date and time.
[2025-02-07] MEDS: Lactated Ringers 1,000 ML 80 ML IVCONT (15:32)
[2025-02-07 15:50] LABS: Glucose, Whole Blood 146 mg/dL (60-115)
[2025-02-07 17:44] LABS: Glucose, Whole Blood 145 mg/dL (60-115)
[2025-02-07 20:49] LABS: Glucose, Whole Blood 127 mg/dL (60-115)
[2025-02-07] MEDS: Gabapentin 600 MG TABLET PO (22:14)
[2025-02-07] MEDS: traZODone HCL 100 MG TABLET PO (22:14)
[2025-02-07] MEDS: Atorvastatin Calcium 20 MG TABLET PO (22:14)
[2025-02-07] MEDS: Acetaminophen 325 MG TABLET 650 MG PO (22:18)
[2025-02-08] VITALS (8 sets, daily range): BP systolic 101–132; BP diastolic 51–85; PULSE 79–107; RESP 16–20; TEMP 36.6–38.4; O2SAT 88–98
[2025-02-08] MEDS: Lactated Ringers 1,000 ML 80 ML IVCONT (04:40)
[2025-02-08 05:51] LABS: MANUAL DIFF FLAG NO
[2025-02-08 05:56] LABS: Basophils Absolute Auto 0.1 X10*3/uL (0.0-0.2); Basophils Percent Auto 0.4 % (0-2); Eosinophils Absolute Auto 0.3 X10*3/uL (0.0-0.4); Eosinophils Percent Auto 2.4 % (0-4); Hematocrit 36.4 % (42.0-52.0); Hemoglobin 12.4 g/dl (14.0-18.0); Imm Gran Abs Auto 0.08 X10*3/uL (0.00-0.03); Imm Gran Pct Auto 0.6 % (0.0-0.4); Lymphocytes Percent Auto 7.4 % (20-40); Mean Corpuscular HGB Conc 34.1 g/dl (31.0-36.0); Mean Corpuscular Hemoglobin 32.5 pg (27.0-33.0); Mean Corpuscular Volume 95.5 fL (80.0-98.0); Mean Platelet Volume 9.3 fL (9.4-12.4); Monocytes Absolute Auto 1.4 X10*3/uL (0.1-1.2); Monocytes Percent Auto 10.5 % (2-11); Neutrophils Absolute Auto 10.5 x10*3/uL (2.0-8.3); Neutrophils Percent Auto 78.7 % (45-73); Platelet Count 151 X10*3/uL (160-400); Red Blood Count 3.81 X10*6/uL (4.60-5.80); Red Cell Distribution Width 13.2 % (11.0-16.0); White Blood Count 13.3 X10*3/uL (4.8-10.8)
[2025-02-08 06:12] LABS: Anion Gap 12 (12-20); Blood Urea Nitrogen 14 mg/dL (9-16); Calcium 8.4 mg/dL (8.4-10.2); Carbon Dioxide 27 mmol/L (22-29); Chloride 105 mmol/L (96-108); Estimated Glomerular Filt Rate > 60; Glucose Random 173 mg/dL (60-115); Potassium 4.5 mmol/L (3.3-5.1); Sodium 139 mmol/L (135-145)
[2025-02-08] MEDS: oxyCODONE HCl Immed Release 5 MG TABLET PO (07:32)
[2025-02-08 07:44] LABS: Glucose, Whole Blood 159 mg/dL (60-115)
--- NOTE | 2025-02-08 08:34 | HO.POSTANES ---
Post Anesthesia Evaluation Post Anesthesia Evaluation Date of Service: 02/08/25 Vital Signs: Vital Signs Temp Pulse Resp BP Pulse Ox O2 Del Method O2 Flow Rate 02/08/25 08:03 100 113/59 L 98 02/08/25 07:04 98.5 F 100 16 113/59 L 98 CPAP 4 02/08/25 03:34 97.9 F 89 17 132/85 92 CPAP 02/08/25 00:33 16 02/07/25 23:31 97.7 F 100 16 142/73 H 91 L CPAP 5 Anesthesia: General Endotracheal-GETA Mental Status: Awake Pain Control: Satisfactory Nausea/Vomiting: None Hydration: Adequate Anesthesia-Related Issues: No Anes. Related Issues
[2025-02-08] MEDS: Insulin Lispro 100 UNIT/ML 3 ML VIAL SUBCUT ×4 (08:48→20:14)
[2025-02-08] MEDS: Fluticasone Propionate Nasal 16 GM SPRAY 2 SPRAY NOSTRIL-B (08:49)
[2025-02-08] MEDS: Multivitamin TABLET 1 TAB PO (08:49)
[2025-02-08] MEDS: Cholecalciferol (Vitamin D3) 25 MCG TABLET 50 MCG PO (08:49)
--- NOTE | 2025-02-08 09:55 | MHC.CM.PN ---
IMM 02/07/25 S/P Fall L OSKAR He lives with his . He was independent prior to fall. he did not use an AD. DME CPAP, Shower bench, Cane + walker PT + OT evals recommend STR Pts goal is home with services. DP STR via BLS per
[2025-02-08 11:02] LABS: Glucose, Whole Blood 191 mg/dL (60-115)
[2025-02-08] MEDS: Acetaminophen 325 MG TABLET 650 MG PO (12:24)
[2025-02-08] MEDS: guaiFENesin LA 600 MG TAB.ER.12H PO ×2 (12:59→20:15)
[2025-02-08] MEDS: Aspirin 325 MG TABLET PO (12:59)
[2025-02-08] MEDS: Piperacillin Sodium/Tazobactam 4.5 GM in 0.9 % Sodium Chloride 100 ML IV ×2 (13:00→18:00)
--- NOTE | 2025-02-08 14:24 | HO.WOUND ---
Wound Consult: Initial 74yr old? admitted to [facility] on 02/06/25- See progress notes and H&P for detailed history.? Wound consult placed for Right Toe wounds.? Patient agreeable to assessment and photo documentation.? Patient reports the injury are about a week old he reports he was doing yard work had wet shoes and developed blisters then evolved to stable scabs. He denies pain, strong pedal pulse noted. Although the sites do not look overtly infected given the slight swelling and red erythema will notify provider to assess given recent surgery and risk of infection. TT to Dr. Nelson. Right Toes Etiology: Abrasion ??Present on Admission Wound Bed: various sized stable dry scabs Drainage / Odor: None Edges: ? adherent [place] wound: slight swelling and red erythema noted ? No Induration, Fluctuance or Warmth noted Pain: denies Goals of Treatment: ? Betadine and provider to assess for need for systemic treatment. Recommendations: Provide adequate and supplemental nutrition.? When applicable maintain blood glucose levels per Providers order. Right Toes - Cleanse with Betadine allow to air dry. May leave open to air at patient request. Apply Daily. Re-consult wound care Nurse for wound deterioration or wound changes.
--- NOTE | 2025-02-08 14:33 | HO.PM.IMPN ---
Subjective Subjective Date of Service: 02/08/25 Interval History: seen and evaluated this morning Surgical site clean spiked fever feels ill no other issues Review of Systems Review of Systems: Yes all other systems are reviewed and are negative Physical Exam Vital Signs: Vital Signs: Last Vital Signs Temp 101.1 F H 02/08/25 11:47 Pulse 107 H 02/08/25 11:47 Resp 16 02/08/25 11:47 BP 110/62 02/08/25 11:47 Pulse Ox 88 L 02/08/25 11:47 O2 Del Method Room Air 02/08/25 11:47 O2 Flow Rate 4 02/08/25 07:04 BMI result Body Mass Index 39.5 Const: Other: Constitutional : Awake, interactive, not in distress Neck : Normal inspection, Supple Cardiovascular : RRR, no JVP, no lower extremity edema Respiratory : good bilateral air entry, no crackles, wheezes or rhonchi Gastrointestinal: soft, lax, Normal bowel sounds, Non tender Skin : Warm, Dry, multiple toes erythema and small open wound with no drainage. ExtremitiesL: left leg surgical site covered with dressing Neurological : Alert & oriented x3, No focal deficit Objective Data Active Medications Acetaminophen (Acetaminophen 325 Mg Tablet) 650 mg PO Q6H PRN PRN Reason: Pain, Mild 1-3,fever,headache Last Admin: 02/08/25 12:24 Dose: 650 mg Documented By: BECK Aspirin (Aspirin 325 Mg Tablet) 325 mg PO Q12H [facility] Last Admin: 02/08/25 12:59 Dose: 325 mg Documented By: BECK Atorvastatin Calcium (Atorvastatin Calcium 20 Mg Tablet) 20 mg PO BEDTIME [facility] Last Admin: 02/07/25 22:14 Dose: 20 mg Documented By: CRUZ Calcium Carbonate (Calcium Carbonate 750 Mg Tab.Chew) 750 mg PO Q4H PRN PRN Reason: Heartburn Dextrose (Dextrose 50 % 25 Gm/50 Ml Syringe) 25 gm IVPUSH Q15M PRN; Protocol PRN Reason: per Hypoglycemia Standing Ord. Fluticasone Propionate (Fluticasone Propionate Nasal 16 Gm [place]) 2 spray NOSTRIL-B DAILY [facility] Last Admin: 02/08/25 08:49 Dose: 2 spray Documented By: BECK Gabapentin (Gabapentin 600 Mg Tablet) 600 mg PO BEDTIME [facility] Last Admin: 02/07/25 22:14 Dose: 600 mg Documented By: CRUZ Glucose (Glucose Gel 15 Gm Gel..Gram.) 15 gm PO Q15M PRN; Protocol PRN Reason: per Hypoglycemia Standing Ord. Guaifenesin (Guaifenesin La 600 Mg Tab.Er.12h) 600 mg PO BID [facility] Last Admin: 02/08/25 12:59 Dose: 600 mg Documented By: BECK Hydromorphone HCl (Hydromorphone Hcl 0.5 Mg/0.5 Ml Syringe) 0.5 mg IVPUSH Q3H PRN; Protocol PRN Reason: Pain, Severe (Pain Scale 7-10) Last Admin: 02/07/25 03:34 Dose: 0.5 mg Documented By: MICHEAL Lactated Ringer's (Lr) 1,000 mls @ 80 mls/hr IVCONT .[id number] [facility] Last Admin: 02/08/25 12:21 Dose: Not Given Documented By: BECK Non-Admin Reason: IV Running Cefazolin Sodium/Dextrose (Ancef) 2 gm in 50 mls @ 100 mls/hr IV POSTOP PRADIP Piperacillin Sod/Tazobactam (Sod 4.5 gm/ Sodium Chloride) 100 mls @ 200 mls/hr IV Q6H [facility] Last Admin: 02/08/25 13:00 Dose: 200 mls/hr Documented By: BECK Insulin Human Lispro (Insulin Lispro 100 Unit/Ml 3 Ml Vial) 0 unit SUBCUT QIDACHS [facility]; Protocol Last Admin: 02/08/25 11:30 Dose: 2 unit Documented By: BECK Lactulose (Lactulose 20 Gm/30 Ml Solution) 20 gm PO BID PRN PRN Reason: Constipation Magnesium Hydroxide (Milk Of Magnesia 30 Ml Oral.Susp) 30 ml PO DAILY PRN PRN Reason: Constipation Melatonin (Melatonin 3 Mg Tablet) 6 mg PO BEDTIME PRN PRN Reason: Insomnia Multivitamins/Vitamin C (Multivitamin Tablet) 1 tab PO DAILY [facility] Last Admin: 02/08/25 08:49 Dose: 1 tab Documented By: BECK Naloxone HCl (Naloxone Hcl 0.4 Mg/Ml Vial) 0.04 mg IVPUSH Q5M PRN PRN Reason: Excessive sedation or RR < 8 Ondansetron HCl (Ondansetron Hcl 4 Mg/2 Ml Vial) 4 mg IVPUSH Q8H PRN PRN Reason: Nausea and Vomiting Oxycodone HCl (Oxycodone Hcl Immed Release 5 Mg Tablet) 5 mg PO Q6H PRN PRN Reason: Pain, Moderate(Pain Scale 4-6) Last Admin: 02/08/25 07:32 Dose: 5 mg Documented By: BECK Sodium Chloride (0.9 % Sodium Chloride Flush 3 Ml Syringe) 3 ml IVFLUSH QSHIFT [facility] Last Admin: 02/08/25 08:49 Dose: Not Given Documented By: BECK Non-Admin Reason: IV Running Trazodone HCl (Trazodone Hcl 100 Mg Tablet) 100 mg PO BEDTIME [facility] Last Admin: 02/07/25 22:14 Dose: 100 mg Documented By: CRUZ Vitamin D (Cholecalciferol (Vitamin D3) 25 Mcg Tablet) 50 mcg PO DAILY [facility] Last Admin: 02/08/25 08:49 Dose: 50 mcg Documented By: BECK Labs 02/08/25 05:44 02/08/25 05:44 Labs: Laboratory Results - last 24 hr 02/07/25 02/07/25 02/07/25 15:46 17:40 20:31 MCV MCH MCHC RDW Plt Count MPV Immature Gran % (Auto) Neut % (Auto) Lymph % (Auto) [place] % (Auto) Eos % (Auto) Baso % (Auto) Lymph # (Auto) [place] # (Auto) Eos # (Auto) Baso # (Auto) Abs Immat Gran (auto) Absolute Neuts (auto) Absolute Nucleated RBC Nucleated RBC % (auto) Anion Gap Estim Creat Clear Calc Estimated GFR POC Glucose 146 H 145 H 127 H Random Glucose Lactic Acid Calcium 02/08/25 02/08/25 02/08/25 05:44 07:12 10:52 MCV 95.5 MCH 32.5 MCHC 34.1 RDW 13.2 Plt Count 151 L MPV 9.3 L Immature Gran % (Auto) 0.6 H Neut % (Auto) 78.7 H Lymph % (Auto) 7.4 L [place] % (Auto) 10.5 Eos % (Auto) 2.4 Baso % (Auto) 0.4 Lymph # (Auto) 1.0 L [place] # (Auto) 1.4 H Eos # (Auto) 0.3 Baso # (Auto) 0.1 Abs Immat Gran (auto) 0.08 H Absolute Neuts (auto) 10.5 H Absolute Nucleated RBC 0.000 Nucleated RBC % (auto) 0.0 Anion Gap 12 Estim Creat Clear Calc 73.0 Estimated GFR > 60 POC Glucose 159 H 191 H Random Glucose 173 H Lactic Acid Calcium 8.4 02/08/25 13:24 MCV MCH MCHC RDW Plt Count MPV Immature Gran % (Auto) Neut % (Auto) Lymph % (Auto) [place] % (Auto) Eos % (Auto) Baso % (Auto) Lymph # (Auto) [place] # (Auto) Eos # (Auto) Baso # (Auto) Abs Immat Gran (auto) Absolute Neuts (auto) Absolute Nucleated RBC Nucleated RBC % (auto) Anion Gap Estim Creat Clear Calc Estimated GFR POC Glucose Random Glucose Lactic Acid 2.0 Calcium Assessment and Plan (1) Left displaced femoral neck fracture: Status: Acute (2) Closed fracture of left hip: Status: Acute (3) Sepsis: Status: Acute Plan A 74 years old male with PMH of DMII, asthma, HTN, DAVEY among others presenting to ED after sustaining mechanical fall at home. Left hip fracture, acute POD 1 pain under fair control Morphine and OXycodone for pain control Sepsis 2/2 pneumonia vs cellulitis toes erythema and wounds post surgical atelactaiss Lactic acid of 2 pending cultures on Zosyn for now monitor response Type 2 DM SSI diabetic diet Hold PO Medications HLD Statin Sleeping problem Trazodone PRN DVT PPx Aspirin full dose The patient will need overnight hospital stay pending final blood cultures Quality Stroke Does the patient have a stroke diagnosis?: No VTE Prior VTE?: No VTE Risk Level:: Medical - moderate - high VTE Device Contraindication: Treatment Not Indicated VTE Drug Contraindication: N/A - Med Ordered
--- NOTE | 2025-02-08 15:57 | PM.PNORT ---
Subjective Subjective Date of Service: 02/08/25 Interval history: Postop day 2 status post left hip hemiarthroplasty Patient resting comfortably in bed No acute events overnight Pain well managed No other acute complaints or concerns at this time Physical Exam Vital Signs: Vital Signs: Last Vital Signs Temp 98 F 02/08/25 15:31 Pulse 93 02/08/25 15:31 Resp 18 02/08/25 15:31 BP 101/51 L 02/08/25 15:31 Pulse Ox 92 02/08/25 15:31 O2 Del Method Nasal Cannula 02/08/25 15:31 O2 Flow Rate 2 02/08/25 15:31 BMI result Body Mass Index 39.5 Extrem: Other: Dressing on left hip clean, dry, intact No evidence of surrounding erythema, ecchymosis No evidence of infection Patient is able to flex and extend the digits of the left foot without difficulty Compartments soft, nontender Distal sensation intact Capillary refill brisk Procedures Date of Service Date of Service: 02/08/25 Progress Note: A&P Assessment and plan (1) Left displaced femoral neck fracture: Status: Acute Plan 1. Status post left hip hemiarthroplasty DOS 02/06/2025 Patient appears to be recovering well postoperatively Patient is educated about the typical recovery course Continue pain management Start aspirin for DVT prophylaxis The PT/OT pending Dispo planning-PT/OT, pain management, medical clearance Time Spent With Patient Time: Total time managing care of this patient today ____ minutes. Quality Stroke Does the patient have a stroke diagnosis?: No VTE Prior VTE?: No VTE Risk Level:: Medical - moderate - high VTE Device Contraindication: Treatment Not Indicated VTE Drug Contraindication: N/A - Med Ordered
[2025-02-08 16:44] LABS: Glucose, Whole Blood 156 mg/dL (60-115)
[2025-02-08 19:22] LABS: Glucose, Whole Blood 181 mg/dL (60-115)
[2025-02-08] MEDS: Gabapentin 600 MG TABLET PO (20:15)
[2025-02-08] MEDS: traZODone HCL 100 MG TABLET PO (20:15)
[2025-02-08] MEDS: Atorvastatin Calcium 20 MG TABLET PO (20:15)
[2025-02-09] VITALS (7 sets, daily range): BP systolic 104–127; BP diastolic 56–77; PULSE 85–100; RESP 16–20; TEMP 36.7–37.5; O2SAT 91–97
[2025-02-09] MEDS: Piperacillin Sodium/Tazobactam 4.5 GM in 0.9 % Sodium Chloride 100 ML IV ×4 (01:18→18:20)
[2025-02-09] MEDS: Aspirin 325 MG TABLET PO ×2 (01:18→14:01)
[2025-02-09] MEDS: Lactated Ringers 1,000 ML 80 ML IVCONT ×2 (01:35→20:56)
[2025-02-09 06:57] LABS: Basophils Percent Auto 0.2 % (0-2); Eosinophils Absolute Auto 0.4 X10*3/uL (0.0-0.4); Eosinophils Percent Auto 2.8 % (0-4); Hematocrit 31.5 % (42.0-52.0); Hemoglobin 10.9 g/dl (14.0-18.0); Imm Gran Abs Auto 0.09 X10*3/uL (0.00-0.03); Imm Gran Pct Auto 0.7 % (0.0-0.4); Lymphocytes Percent Auto 7.8 % (20-40); MANUAL DIFF FLAG SCAN; Mean Corpuscular HGB Conc 34.6 g/dl (31.0-36.0); Mean Corpuscular Hemoglobin 32.5 pg (27.0-33.0); Mean Platelet Volume 9.7 fL (9.4-12.4); Monocytes Absolute Auto 1.5 X10*3/uL (0.1-1.2); Monocytes Percent Auto 11.8 % (2-11); Neutrophils Percent Auto 76.7 % (45-73); Platelet Count 130 X10*3/uL (160-400); Red Blood Count 3.35 X10*6/uL (4.60-5.80); Red Cell Distribution Width 13.3 % (11.0-16.0); SCAN SMEAR FLAG 1
[2025-02-09 07:19] LABS: Anion Gap 12 (12-20); Blood Urea Nitrogen 24 mg/dL (9-16); Calcium 8.2 mg/dL (8.4-10.2); Carbon Dioxide 26 mmol/L (22-29); Chloride 106 mmol/L (96-108); Creatinine Clr Calc Pharmacy 58.2; Estimated Glomerular Filt Rate 48; Glucose Random 138 mg/dL (60-115); Potassium 4.5 mmol/L (3.3-5.1); Sodium 139 mmol/L (135-145)
[2025-02-09 07:23] LABS: Glucose, Whole Blood 136 mg/dL (60-115)
[2025-02-09 07:32] LABS: SLIDE REVIEW VERIFIED
[2025-02-09] MEDS: oxyCODONE HCl Immed Release 5 MG TABLET PO (08:03)
[2025-02-09] MEDS: Multivitamin TABLET 1 TAB PO (08:03)
[2025-02-09] MEDS: Fluticasone Propionate Nasal 16 GM SPRAY 2 SPRAY NOSTRIL-B (08:03)
[2025-02-09] MEDS: Cholecalciferol (Vitamin D3) 25 MCG TABLET 50 MCG PO (08:04)
[2025-02-09] MEDS: guaiFENesin LA 600 MG TAB.ER.12H PO ×2 (08:04→20:52)
[2025-02-09 11:08] LABS: Glucose, Whole Blood 176 mg/dL (60-115)
[2025-02-09] MEDS: Insulin Lispro 100 UNIT/ML 3 ML VIAL SUBCUT ×2 (11:26→20:52)
--- NOTE | 2025-02-09 12:07 | HO.PM.IMPN ---
Subjective Subjective Date of Service: 02/09/25 Interval History: seen and evaluated this morning Surgical site clean no more fever overnight erythema improving in his toes no other issues Review of Systems Review of Systems: Yes all other systems are reviewed and are negative Physical Exam Vital Signs: Vital Signs: Last Vital Signs Temp 98.1 F 02/09/25 12:00 Pulse 85 02/09/25 12:00 Resp 17 02/09/25 12:00 BP 127/77 02/09/25 12:00 Pulse Ox 94 02/09/25 12:00 O2 Del Method Nasal Cannula 02/09/25 12:00 O2 Flow Rate 2 02/09/25 12:00 BMI result Body Mass Index 39.5 Const: Other: Constitutional : Awake, interactive, not in distress Neck : Normal inspection, Supple Cardiovascular : RRR, no JVP, no lower extremity edema Respiratory : good bilateral air entry, no crackles, wheezes or rhonchi Gastrointestinal: soft, lax, Normal bowel sounds, Non tender Skin : Warm, Dry, multiple toes erythema improving and small closed wound with no drainage. ExtremitiesL: left leg surgical site covered with dressing Neurological : Alert & oriented x3, No focal deficit Objective Data Active Medications Acetaminophen (Acetaminophen 325 Mg Tablet) 650 mg PO Q6H PRN PRN Reason: Pain, Mild 1-3,fever,headache Last Admin: 02/08/25 12:24 Dose: 650 mg Documented By: BECK Aspirin (Aspirin 325 Mg Tablet) 325 mg PO Q12H [facility] Last Admin: 02/09/25 01:18 Dose: 325 mg Documented By: BRICE Atorvastatin Calcium (Atorvastatin Calcium 20 Mg Tablet) 20 mg PO BEDTIME [facility] Last Admin: 02/08/25 20:15 Dose: 20 mg Documented By: BRICE Calcium Carbonate (Calcium Carbonate 750 Mg Tab.Chew) 750 mg PO Q4H PRN PRN Reason: Heartburn Dextrose (Dextrose 50 % 25 Gm/50 Ml Syringe) 25 gm IVPUSH Q15M PRN; Protocol PRN Reason: per Hypoglycemia Standing Ord. Fluticasone Propionate (Fluticasone Propionate Nasal 16 Gm [place]) 2 spray NOSTRIL-B DAILY [facility] Last Admin: 02/09/25 08:03 Dose: 2 spray Documented By: ALEXA Gabapentin (Gabapentin 600 Mg Tablet) 600 mg PO BEDTIME [facility] Last Admin: 02/08/25 20:15 Dose: 600 mg Documented By: BRICE Glucose (Glucose Gel 15 Gm Gel..Gram.) 15 gm PO Q15M PRN; Protocol PRN Reason: per Hypoglycemia Standing Ord. Guaifenesin (Guaifenesin La 600 Mg Tab.Er.12h) 600 mg PO BID [facility] Last Admin: 02/09/25 08:04 Dose: 600 mg Documented By: ALEXA Hydromorphone HCl (Hydromorphone Hcl 0.5 Mg/0.5 Ml Syringe) 0.5 mg IVPUSH Q3H PRN; Protocol PRN Reason: Pain, Severe (Pain Scale 7-10) Last Admin: 02/07/25 03:34 Dose: 0.5 mg Documented By: MICHEAL Lactated Ringer's (Lr) 1,000 mls @ 80 mls/hr IVCONT .[id number] [facility] Last Admin: 02/09/25 01:35 Dose: 80 mls/hr Documented By: BRICE Cefazolin Sodium/Dextrose (Ancef) 2 gm in 50 mls @ 100 mls/hr IV POSTOP PRADIP Piperacillin Sod/Tazobactam (Sod 4.5 gm/ Sodium Chloride) 100 mls @ 200 mls/hr IV Q6H [facility] Last Infusion: 02/09/25 07:20 Dose: Infused Documented By: BECK Insulin Human Lispro (Insulin Lispro 100 Unit/Ml 3 Ml Vial) 0 unit SUBCUT QIDACHS [facility]; Protocol Last Admin: 02/09/25 11:26 Dose: 1 unit Documented By: BECK Comments: 2 Lactulose (Lactulose 20 Gm/30 Ml Solution) 20 gm PO BID PRN PRN Reason: Constipation Magnesium Hydroxide (Milk Of Magnesia 30 Ml Oral.Susp) 30 ml PO DAILY PRN PRN Reason: Constipation Melatonin (Melatonin 3 Mg Tablet) 6 mg PO BEDTIME PRN PRN Reason: Insomnia Multivitamins/Vitamin C (Multivitamin Tablet) 1 tab PO DAILY [facility] Last Admin: 02/09/25 08:03 Dose: 1 tab Documented By: ALEXA Naloxone HCl (Naloxone Hcl 0.4 Mg/Ml Vial) 0.04 mg IVPUSH Q5M PRN PRN Reason: Excessive sedation or RR < 8 Ondansetron HCl (Ondansetron Hcl 4 Mg/2 Ml Vial) 4 mg IVPUSH Q8H PRN PRN Reason: Nausea and Vomiting Oxycodone HCl (Oxycodone Hcl Immed Release 5 Mg Tablet) 5 mg PO Q6H PRN PRN Reason: Pain, Moderate(Pain Scale 4-6) Last Admin: 02/09/25 08:03 Dose: 5 mg Documented By: ALEXA Sodium Chloride (0.9 % Sodium Chloride Flush 3 Ml Syringe) 3 ml IVFLUSH QSHIFT [facility] Last Admin: 02/09/25 07:51 Dose: Not Given Documented By: BECK Non-Admin Reason: No Insulin Coverage Trazodone HCl (Trazodone Hcl 100 Mg Tablet) 100 mg PO BEDTIME [facility] Last Admin: 02/08/25 20:15 Dose: 100 mg Documented By: BRICE Vitamin D (Cholecalciferol (Vitamin D3) 25 Mcg Tablet) 50 mcg PO DAILY [facility] Last Admin: 02/09/25 08:04 Dose: 50 mcg Documented By: ALEXA Labs 02/09/25 06:28 02/09/25 06:28 Labs: Laboratory Results - last 24 hr 02/08/25 02/08/25 02/08/25 13:24 16:23 19:12 MCV MCH MCHC RDW Plt Count MPV Immature Gran % (Auto) Neut % (Auto) Lymph % (Auto) [place] % (Auto) Eos % (Auto) Baso % (Auto) Lymph # (Auto) [place] # (Auto) Eos # (Auto) Baso # (Auto) Abs Immat Gran (auto) Absolute Neuts (auto) Absolute Nucleated RBC Nucleated RBC % (auto) Smear Tech's Comments Anion Gap Estim Creat Clear Calc Estimated GFR POC Glucose 156 H 181 H Random Glucose Lactic Acid 2.0 Calcium 02/09/25 02/09/25 02/09/25 06:28 07:20 11:05 MCV 94.0 MCH 32.5 MCHC 34.6 RDW 13.3 Plt Count 130 L MPV 9.7 Immature Gran % (Auto) 0.7 H Neut % (Auto) 76.7 H Lymph % (Auto) 7.8 L [place] % (Auto) 11.8 H Eos % (Auto) 2.8 Baso % (Auto) 0.2 Lymph # (Auto) 1.0 L [place] # (Auto) 1.5 H Eos # (Auto) 0.4 Baso # (Auto) 0.0 Abs Immat Gran (auto) 0.09 H Absolute Neuts (auto) 10.0 H Absolute Nucleated RBC 0.000 Nucleated RBC % (auto) 0.0 Smear Tech's Comments VERIFIED Anion Gap 12 Estim Creat Clear Calc 58.2 Estimated GFR 48 POC Glucose 136 H 176 H Random Glucose 138 H Lactic Acid Calcium 8.2 L Assessment and Plan (1) Sepsis: Status: Acute (2) Left displaced femoral neck fracture: Status: Acute Plan A 74 years old male with PMH of DMII, asthma, HTN, DAVEY among others presenting to ED after sustaining mechanical fall at home. Left hip fracture, acute POD 2 pain under fair control Morphine and OXycodone for pain control PT ASA bid per orthopedic protocol Sepsis 2/2 pneumonia vs cellulitis toes erythema and wounds and likely post surgical atelactasis CXR showing no clear infiltrates pending cultures on Zosyn for now monitor response Acute kidney injury Cr 1.4 from 0.98 IVF Hold nephrotoxins monitor I\O repeat BMP Type 2 DM SSI diabetic diet Hold PO Medications HLD Statin Sleeping problem Trazodone PRN DVT PPx Aspirin full dose The patient will need overnight hospital stay pending final blood cultures Quality Stroke Does the patient have a stroke diagnosis?: No VTE Prior VTE?: No VTE Risk Level:: Medical - moderate - high VTE Device Contraindication: Treatment Not Indicated VTE Drug Contraindication: N/A - Med Ordered
--- NOTE | 2025-02-09 12:16 | MHC.CM.PN ---
Addendum entered by Eliz Dixon 02/09/25 16:15: Met with patient and his . They accept the bed offer from [facility] for Wednesday 10:30 am transport. MD has appoved the discharge for Wednesday 10:30 am. Addendum entered by Eliz Dixon 02/09/25 16:02: [facility] is offering a bed Wednesday. They are asking for transport to be booked for 10:30 am if the patient is ready. There is no liason over the weekend. I have notified the MD. Original Note: Per MD rounds patient may be ready to DC tomorrow. Blood cultures are pending. He has received a bed offer from [facility]. He has requested a referral be sent to [facility]. They are reviewing the case. [facility] via BLS.
[2025-02-09 16:16] LABS: Glucose, Whole Blood 146 mg/dL (60-115)
[2025-02-09 20:14] LABS: Glucose, Whole Blood 193 mg/dL (60-115)
[2025-02-09] MEDS: Atorvastatin Calcium 20 MG TABLET PO (20:52)
[2025-02-09] MEDS: Gabapentin 600 MG TABLET PO (20:52)
[2025-02-09] MEDS: traZODone HCL 100 MG TABLET PO (20:52)
--- NOTE | 2025-02-09 22:37 | PM.PNORT ---
Subjective Subjective Date of Service: 02/09/25 Interval history: Postop day 2 status post left hip hemiarthroplasty Patient resting comfortably in bed No acute events overnight Pain well managed No other acute complaints or concerns at this time Physical Exam Vital Signs: Vital Signs: Last Vital Signs Temp 99.5 F 02/09/25 19:13 Pulse 100 02/09/25 19:13 Resp 20 02/09/25 19:13 BP 120/59 L 02/09/25 19:13 Pulse Ox 91 L 02/09/25 19:13 O2 Del Method Room Air 02/09/25 19:13 O2 Flow Rate 2 02/09/25 15:44 BMI result Body Mass Index 39.5 Extrem: Other: Dressing on left hip has lifted on distal aspect No evidence of surrounding erythema, ecchymosis No evidence of infection Patient is able to flex and extend the digits of the left foot without difficulty Compartments soft, nontender Distal sensation intact Capillary refill brisk Procedures Date of Service Date of Service: 02/09/25 Progress Note: A&P Assessment and plan (1) Left displaced femoral neck fracture: Status: Acute Plan 1. Status post left hip hemiarthroplasty DOS 02/06/2025 Patient appears to be recovering well postoperatively Patient is educated about the typical recovery course Dressing changed today Continue pain management COntinue aspirin for DVT prophylaxis PT/OT pending Dispo planning-PT/OT, pain management, medical clearance Time Spent With Patient Time: Total time managing care of this patient today ____ minutes. Quality Stroke Does the patient have a stroke diagnosis?: No VTE Prior VTE?: No VTE Risk Level:: Medical - moderate - high VTE Device Contraindication: Treatment Not Indicated VTE Drug Contraindication: N/A - Med Ordered
[2025-02-10] VITALS (7 sets, daily range): BP systolic 106–139; BP diastolic 56–74; PULSE 88–97; RESP 16–18; TEMP 36.6–37.6; O2SAT 92–95
[2025-02-10] MEDS: Aspirin 325 MG TABLET PO ×2 (00:40→11:54)
[2025-02-10] MEDS: Piperacillin Sodium/Tazobactam 4.5 GM in 0.9 % Sodium Chloride 100 ML IV ×4 (00:40→18:12)
[2025-02-10 05:50] LABS: MANUAL DIFF FLAG NO
[2025-02-10 05:57] LABS: Basophils Absolute Auto 0.1 X10*3/uL (0.0-0.2); Basophils Percent Auto 0.5 % (0-2); Eosinophils Absolute Auto 0.4 X10*3/uL (0.0-0.4); Eosinophils Percent Auto 3.6 % (0-4); Hematocrit 33.6 % (42.0-52.0); Hemoglobin 11.3 g/dl (14.0-18.0); Imm Gran Abs Auto 0.05 X10*3/uL (0.00-0.03); Imm Gran Pct Auto 0.5 % (0.0-0.4); Lymphocytes Absolute Auto 0.9 X10*3/uL (1.2-4.9); Lymphocytes Percent Auto 8.6 % (20-40); Mean Corpuscular HGB Conc 33.6 g/dl (31.0-36.0); Mean Corpuscular Hemoglobin 32.4 pg (27.0-33.0); Mean Corpuscular Volume 96.3 fL (80.0-98.0); Monocytes Absolute Auto 1.2 X10*3/uL (0.1-1.2); Monocytes Percent Auto 10.7 % (2-11); Neutrophils Absolute Auto 8.3 x10*3/uL (2.0-8.3); Neutrophils Percent Auto 76.1 % (45-73); Platelet Count 141 X10*3/uL (160-400); Red Blood Count 3.49 X10*6/uL (4.60-5.80); Red Cell Distribution Width 13.3 % (11.0-16.0); White Blood Count 10.9 X10*3/uL (4.8-10.8)
[2025-02-10 06:17] LABS: Anion Gap 13 (12-20); Blood Urea Nitrogen 24 mg/dL (9-16); Calcium 8.5 mg/dL (8.4-10.2); Carbon Dioxide 25 mmol/L (22-29); Chloride 108 mmol/L (96-108); Creatinine Clr Calc Pharmacy 61.7; Estimated Glomerular Filt Rate 52; Glucose Random 138 mg/dL (60-115); Potassium 4.5 mmol/L (3.3-5.1); Sodium 141 mmol/L (135-145)
[2025-02-10 07:29] LABS: Glucose, Whole Blood 134 mg/dL (60-115)
[2025-02-10] MEDS: oxyCODONE HCl Immed Release 5 MG TABLET PO ×2 (08:57→18:30)
[2025-02-10] MEDS: Cholecalciferol (Vitamin D3) 25 MCG TABLET 50 MCG PO (08:57)
[2025-02-10] MEDS: Multivitamin TABLET 1 TAB PO (08:57)
[2025-02-10] MEDS: guaiFENesin LA 600 MG TAB.ER.12H PO ×2 (08:57→19:57)
[2025-02-10] MEDS: Fluticasone Propionate Nasal 16 GM SPRAY 2 SPRAY NOSTRIL-B (09:02)
--- NOTE | 2025-02-10 10:24 | PM.PNORT ---
Subjective Subjective Date of Service: 02/10/25 Interval history: Postop day 3 status post left hip hemiarthroplasty Patient resting comfortably in bed No acute events overnight Pain well managed No other acute complaints or concerns at this time Physical Exam Vital Signs: Vital Signs: Last Vital Signs Temp 98.4 F 02/10/25 07:20 Pulse 94 02/10/25 07:20 Resp 18 02/10/25 07:20 BP 118/58 L 02/10/25 07:20 Pulse Ox 95 02/10/25 07:20 O2 Del Method Nasal Cannula 02/10/25 07:20 O2 Flow Rate 2 02/10/25 07:20 BMI result Body Mass Index 39.5 Extrem: Other: Dressing on left hip clean, dry, intact No evidence of surrounding erythema, ecchymosis No evidence of infection Patient is able to flex and extend the digits of the left foot without difficulty Compartments soft, nontender Distal sensation intact Capillary refill brisk Procedures Date of Service Date of Service: 02/10/25 Progress Note: A&P Assessment and plan (1) Left displaced femoral neck fracture: Status: Acute Plan 1. Status post left hip hemiarthroplasty DOS 02/06/2025 Patient appears to be recovering well postoperatively Patient is educated about the typical recovery course Dressing changed today Continue pain management COntinue aspirin for DVT prophylaxis PT/OT pending Dispo planning-PT/OT, pain management, medical clearance Time Spent With Patient Time: Total time managing care of this patient today ____ minutes. Quality Stroke Does the patient have a stroke diagnosis?: No VTE Prior VTE?: No VTE Risk Level:: Medical - moderate - high VTE Device Contraindication: Treatment Not Indicated VTE Drug Contraindication: N/A - Med Ordered
[2025-02-10 11:36] LABS: Glucose, Whole Blood 170 mg/dL (60-115)
--- NOTE | 2025-02-10 11:37 | P.PNIM_ITS ---
Subjective Subjective Date of Service: 02/10/25 Interval History: seen and evaluated this morning Surgical site clean no more fever last 48 hours weaning down O2 erythema improving in his toes no other issues Review of Systems Review of Systems: Yes all other systems are reviewed and are negative Physical Exam 2 Vital Signs: Vital Signs: Last Vital Signs Temp 98.4 F 02/10/25 07:20 Pulse 94 02/10/25 07:20 Resp 18 02/10/25 07:20 BP 118/58 L 02/10/25 07:20 Pulse Ox 95 02/10/25 07:20 O2 Del Method Nasal Cannula 02/10/25 07:20 O2 Flow Rate 2 02/10/25 07:20 BMI result Body Mass Index 39.5 Const: Other: Constitutional : Awake, interactive, not in distress Neck : Normal inspection, Supple Cardiovascular : RRR, no JVP, no lower extremity edema Respiratory : good bilateral air entry, fine basal crackles, wheezes or rhonch, on O2 i Gastrointestinal: soft, lax, Normal bowel sounds, Non tender Skin : Warm, Dry, multiple toes erythema improving and small closed wound with no drainage. ExtremitiesL: left leg surgical site covered with dressing Neurological : Alert & oriented x3, No focal deficit Objective Data Active Medications Acetaminophen (Acetaminophen 325 Mg Tablet) 650 mg PO Q6H PRN PRN Reason: Pain, Mild 1-3,fever,headache Last Admin: 02/08/25 12:24 Dose: 650 mg Documented By: BECK Aspirin (Aspirin 325 Mg Tablet) 325 mg PO Q12H [facility] Last Admin: 02/10/25 00:40 Dose: 325 mg Documented By: ONEIL Atorvastatin Calcium (Atorvastatin Calcium 20 Mg Tablet) 20 mg PO BEDTIME [facility] Last Admin: 02/09/25 20:52 Dose: 20 mg Documented By: ONEIL Calcium Carbonate (Calcium Carbonate 750 Mg Tab.Chew) 750 mg PO Q4H PRN PRN Reason: Heartburn Dextrose (Dextrose 50 % 25 Gm/50 Ml Syringe) 25 gm IVPUSH Q15M PRN; Protocol PRN Reason: per Hypoglycemia Standing Ord. Fluticasone Propionate (Fluticasone Propionate Nasal 16 Gm Story) 2 spray NOSTRIL-B DAILY [facility] Last Admin: 02/10/25 09:02 Dose: 2 spray Documented By: TRACEY Gabapentin (Gabapentin 600 Mg Tablet) 600 mg PO BEDTIME [facility] Last Admin: 02/09/25 20:52 Dose: 600 mg Documented By: ONEIL Glucose (Glucose Gel 15 Gm Gel..Gram.) 15 gm PO Q15M PRN; Protocol PRN Reason: per Hypoglycemia Standing Ord. Guaifenesin (Guaifenesin La 600 Mg Tab.Er.12h) 600 mg PO BID [facility] Last Admin: 02/10/25 08:57 Dose: 600 mg Documented By: TRACEY Hydromorphone HCl (Hydromorphone Hcl 0.5 Mg/0.5 Ml Syringe) 0.5 mg IVPUSH Q3H PRN; Protocol PRN Reason: Pain, Severe (Pain Scale 7-10) Last Admin: 02/07/25 03:34 Dose: 0.5 mg Documented By: MICHEAL Lactated Ringer's (Lr) 1,000 mls @ 80 mls/hr IVCONT .[id number] [facility] Last Admin: 02/09/25 20:56 Dose: 80 mls/hr Documented By: ONEIL Cefazolin Sodium/Dextrose (Ancef) 2 gm in 50 mls @ 100 mls/hr IV POSTOP [facility] Piperacillin Sod/Tazobactam (Sod 4.5 gm/ Sodium Chloride) 100 mls @ 200 mls/hr IV Q6H [facility] Last Infusion: 02/10/25 08:18 Dose: Infused Documented By: TRACEY Insulin Human Lispro (Insulin Lispro 100 Unit/Ml 3 Ml Vial) 0 unit SUBCUT QIDACHS [facility]; Protocol Last Admin: 02/10/25 08:19 Dose: Not Given Documented By: TRACEY Non-Admin Reason: No Insulin Coverage Lactulose (Lactulose 20 Gm/30 Ml Solution) 20 gm PO BID [facility] Magnesium Hydroxide (Milk Of Magnesia 30 Ml Oral.Susp) 30 ml PO DAILY [facility] Melatonin (Melatonin 3 Mg Tablet) 6 mg PO BEDTIME PRN PRN Reason: Insomnia Multivitamins/Vitamin C (Multivitamin Tablet) 1 tab PO DAILY [facility] Last Admin: 02/10/25 08:57 Dose: 1 tab Documented By: TRACEY Naloxone HCl (Naloxone Hcl 0.4 Mg/Ml Vial) 0.04 mg IVPUSH Q5M PRN PRN Reason: Excessive sedation or RR < 8 Ondansetron HCl (Ondansetron Hcl 4 Mg/2 Ml Vial) 4 mg IVPUSH Q8H PRN PRN Reason: Nausea and Vomiting Oxycodone HCl (Oxycodone Hcl Immed Release 5 Mg Tablet) 5 mg PO Q6H PRN PRN Reason: Pain, Moderate(Pain Scale 4-6) Last Admin: 02/10/25 08:57 Dose: 5 mg Documented By: TRACEY Sodium Chloride (0.9 % Sodium Chloride Flush 3 Ml Syringe) 3 ml IVFLUSH QSHIFT [facility] Last Admin: 02/10/25 08:57 Dose: Not Given Documented By: TRACEY Non-Admin Reason: IV Running Trazodone HCl (Trazodone Hcl 100 Mg Tablet) 100 mg PO BEDTIME [facility] Last Admin: 02/09/25 20:52 Dose: 100 mg Documented By: ONEIL Vitamin D (Cholecalciferol (Vitamin D3) 25 Mcg Tablet) 50 mcg PO DAILY [facility] Last Admin: 02/10/25 08:57 Dose: 50 mcg Documented By: TRACEY Labs 02/10/25 05:40 02/10/25 05:40 Labs: Laboratory Results - last 24 hr 02/09/25 02/09/25 02/10/25 16:12 20:08 05:40 MCV 96.3 MCH 32.4 MCHC 33.6 RDW 13.3 Plt Count 141 L MPV 10.0 Immature Gran % (Auto) 0.5 H Neut % (Auto) 76.1 H Lymph % (Auto) 8.6 L [place] % (Auto) 10.7 Eos % (Auto) 3.6 Baso % (Auto) 0.5 Lymph # (Auto) 0.9 L [place] # (Auto) 1.2 Eos # (Auto) 0.4 Baso # (Auto) 0.1 Abs Immat Gran (auto) 0.05 H Absolute Neuts (auto) 8.3 Absolute Nucleated RBC 0.000 Nucleated RBC % (auto) 0.0 Anion Gap 13 Estim Creat Clear Calc 61.7 Estimated GFR 52 POC Glucose 146 H 193 H Random Glucose 138 H Calcium 8.5 02/10/25 02/10/25 07:17 11:30 MCV MCH MCHC RDW Plt Count MPV Immature Gran % (Auto) Neut % (Auto) Lymph % (Auto) Charlotte % (Auto) Eos % (Auto) Baso % (Auto) Lymph # (Auto) Charlotte # (Auto) Eos # (Auto) Baso # (Auto) Abs Immat Gran (auto) Absolute Neuts (auto) Absolute Nucleated RBC Nucleated RBC % (auto) Anion Gap Estim Creat Clear Calc Estimated GFR POC Glucose 134 H 170 H Random Glucose Calcium Microbiology Microbiology Results: Microbiology 02/08/25 13:24 Blood Culture - Preliminary Blood - Venous No growth after 24 hours. 02/08/25 13:24 Blood Culture - Preliminary Blood - Venous No growth after 24 hours. Assessment and Plan (1) Hypoxia: Status: Acute (2) Sepsis: Status: Acute (3) Left displaced femoral neck fracture: Status: Acute (4) Pneumonia: Status: Acute Plan A 74 years old male with PMH of DMII, asthma, HTN, DAVEY among others presenting to ED after sustaining mechanical fall at home. Left hip fracture, acute POD 2 pain under fair control Morphine and OXycodone for pain control PT ASA bid per orthopedic protocol Sepsis 2/2 pneumonia vs cellulitis complicated with hypoxia toes erythema and wounds and likely post surgical atelactasis CXR showing no clear infiltrates pending cultures on Zosyn for now monitor response Acute kidney injury Cr stabilized at 1.35 IVF DC Hold nephrotoxins monitor I\O repeat BMP Type 2 DM SSI diabetic diet Hold PO Medications HLD Statin Sleeping problem Trazodone PRN DVT PPx Aspirin full dose The patient will need overnight hospital stay pending final blood cultures on IV antibiotics and O2 supplement Quality Stroke Does the patient have a stroke diagnosis?: No VTE Prior VTE?: No VTE Risk Level:: Medical - moderate - high VTE Device Contraindication: Treatment Not Indicated VTE Drug Contraindication: N/A - Med Ordered
[2025-02-10] MEDS: Lactulose 20 GM/30 ML SOLUTION PO ×2 (11:54→19:57)
[2025-02-10] MEDS: Insulin Lispro 100 UNIT/ML 3 ML VIAL SUBCUT ×2 (11:54→20:43)
[2025-02-10 16:14] LABS: Glucose, Whole Blood 150 mg/dL (60-115)
[2025-02-10] MEDS: 0.9 % Sodium Chloride Flush 3 ML SYRINGE IVFLUSH (17:10)
[2025-02-10] MEDS: Gabapentin 600 MG TABLET PO (19:57)
[2025-02-10] MEDS: Atorvastatin Calcium 20 MG TABLET PO (19:57)
[2025-02-10] MEDS: traZODone HCL 100 MG TABLET PO (19:57)
[2025-02-10 20:34] LABS: Glucose, Whole Blood 168 mg/dL (60-115)
[2025-02-11] MEDS: Aspirin 325 MG TABLET PO (01:03)
[2025-02-11] MEDS: Piperacillin Sodium/Tazobactam 4.5 GM in 0.9 % Sodium Chloride 100 ML IV ×2 (01:03→06:06)
[2025-02-11 03:35] VITALS: BP 125/60; PULSE 93; RESP 18; TEMP 37.2; O2SAT 93
[2025-02-11 07:25] VITALS: BP 101/56; PULSE 82; RESP 18; TEMP 36.4; O2SAT 97
[2025-02-11 07:32] LABS: Glucose, Whole Blood 135 mg/dL (60-115)
[2025-02-11] MEDS: 0.9 % Sodium Chloride Flush 3 ML SYRINGE IVFLUSH (08:47)
[2025-02-11] MEDS: Lactulose 20 GM/30 ML SOLUTION PO (08:47)
[2025-02-11] MEDS: Milk of Magnesia 30 ML ORAL.SUSP PO (08:48)
[2025-02-11] MEDS: guaiFENesin LA 600 MG TAB.ER.12H PO (08:48)
[2025-02-11] MEDS: Cholecalciferol (Vitamin D3) 25 MCG TABLET 50 MCG PO (08:48)
[2025-02-11] MEDS: Multivitamin TABLET 1 TAB PO (08:48)
[2025-02-11] MEDS: Fluticasone Propionate Nasal 16 GM SPRAY 2 SPRAY NOSTRIL-B (08:48)
--- NOTE | 2025-02-11 08:55 | MHC.CM.PN ---
pts notified of dc
[2025-02-11] MEDS: oxyCODONE HCl Immed Release 5 MG TABLET PO (10:00)
[2025-02-11 10:01] VITALS: O2SAT 97
--- NOTE | 2025-02-11 10:06 | P.DS_ITS ---
DS: Providers Provider Date of Service: 02/11/25 Date of admission: 02/06/25 16:27 Date of discharge: 02/11/25 Primary care physician: Daniel Romano MD Consults: 02/06/25 16:27 Consult to Orthopedics Routine Consulting Provider: [facility] Reason for consultation: Left hip fracture 02/06/25 16:41 Consult to Orthopedics Stat Consulting Provider: [facility] Reason for consultation: Left hip fracture Has provider been notified: Yes 02/06/25 21:16 Consult to Wound Care Routine Reason for consultation: R great,second and third toe abrasion. DS: Diagnosis Discharge Diagnosis (1) Hypoxia: Status: Acute (2) Sepsis: Status: Acute (3) Left displaced femoral neck fracture: Status: Acute (4) Pneumonia: Status: Acute (5) Lung nodule: Status: Acute DS: Summary Hospital Course Hospital Course: Admission note HPI A 74 years old male with PMH of DMII, asthma, HTN, DAVEY among others presenting to ED after sustaining mechanical fall at home. The patient tripped and fell in his garage. reported losing balance and started to complain of sudden onset left hip pain. denies LOC or lightheadedness. No chest pain, palpitations, SOB, nausea, vomiting, diarrhea or urinary symptoms. In ED XR showed left hip fracture. discussed with orthopedic team who plans for surgical intervention by tomorrow. Admitted for further management inpatient. Hospital course # Left hip fracture post fall with XR showing neck of femur fracture. evaluated by orthopedic surgery who did hip arthroplasty on 02/08. He was able to participate with PT\OT and pain controlled on Morphine and OXycodone for pain control as needed. To be discharged for PT at SNF and continue Oxycodone PRN. Lovenox for DVT prophylaxis. # Sepsis secondary to pneumonia vs toes cellulitis complicated with hypoxia tr eated with IV antibiotic of Zosyn with good response but continues to require O2 supplement which weaned off as tolerated. toes erythema and wounds also improved with antibiotics. To continue 5 more days of Augmentin. # Acute kidney injury, presented with mildly worsen than baseline Cr of 1.6. treated with IV fluids and holding nephrotoxic medications. Cr stabilized at 1.35. to be followed as outpatient as will continue to hold Lisinopril for 1 more week given soft BP readings. # CXR on admission reported lung nodule that needs CT scan follow up after treatment from pneumonia. To be followed by PCP. a repeated CXR later in admission did not report a nodule though. Discharge plan Continue Augmentin for 5 more days Mucinex for 7 more days Oxycodone as needed for pain Lovenox for clot prevention Hold Lisinopril for 1 week and repeat kidney function before restarting Follow with Orthopedic for wound check in 2 weeks Follow with PCP for CT chest for further evaluation of reported nodule Time Attestation Discharge Coordination Time (in mins): 42 Quality: Safe Use of Opioids Does Pt have an Active Cancer Diagnosis on the Problem List?: No Quality: Stroke Does the patient have a stroke diagnosis?: No Physical Exam Vital Signs: Vital Signs: Last Vital Signs Temp 97.5 F 02/11/25 07:25 Pulse 82 02/11/25 07:25 Resp 18 02/11/25 07:25 BP 101/56 L 02/11/25 07:25 Pulse Ox 97 02/11/25 10:01 O2 Del Method Room Air 02/11/25 10:01 O2 Flow Rate 2 02/11/25 07:25 BMI result Body Mass Index 39.5 Const: Other: Constitutional : Awake, interactive, not in distress Neck : Normal inspection, Supple Cardiovascular : RRR, no JVP, no lower extremity edema Respiratory : good bilateral air entry, fine basal crackles, wheezes or rhonch, on room air Gastrointestinal: soft, lax, Normal bowel sounds, Non tender Skin : Warm, Dry, multiple toes erythema improving and small closed wound with no drainage. ExtremitiesL: left leg surgical site covered with dressing Neurological : Alert & oriented x3, No focal deficit DS: Data Data Completed and Pending Completed studies during hospitalization [Text1]: Pending at discharge 02/07/25 14:10 Surgical [PTH] Routine Labs on day of discharge: Laboratory Results - last 24 hr 02/10/25 02/10/25 02/10/25 11:30 16:02 20:28 POC Glucose 170 H 150 H 168 H 02/11/25 07:27 POC Glucose 135 H Preliminary micro results at discharge 02/08/25 13:24 Blood Culture - Preliminary Blood - Venous No growth after 48 hours. 02/08/25 13:24 Blood Culture - Preliminary Blood - Venous No growth after 48 hours. Imaging Chest x-ray: Radiologist's impression: ITS Impressions Hip/Pelvis X-Ray 02/06/25 14:28 IMPRESSION: Mildly displaced fracture of the left femoral neck. Electronically signed by: Mac Zamora MD 02/06/2025 03:04 PM EDT RP Chest X-Ray 02/06/25 14:42 IMPRESSION: Nodular opacity at the medial aspect of the left lung base. Further evaluation with chest CT is advised. Electronically signed by: Mac Zamora MD 02/06/2025 03:07 PM EDT RP Chest X-Ray 02/08/25 13:18 IMPRESSION: No active pulmonary disease. Electronically signed by: Lamin Trejo MD 02/08/2025 01:27 PM EDT RP Discharge Plan Discharge Anticipated Discharge Date/Time: 02/11/25 10:01 Patient Disposition: Xfer SNF Discharge Diagnosis: Hip fracture Pneumonia Referrals: jaquan medina [Other] - 1 Week Cynthia Thompson PA-C [Physician Waste Collection Driver] - 02/23/25 (02/23/25 830 with ) Po,Daniel Conrad MD [Primary Care Provider] - 1 Week Discharge Medications: New oxycodone 5 mg Tablet 5 mg PO Q6H PRN (Reason: Pain, Moderate(Pain Scale 4-6)) Qty: 20 0RF Rx Instructions: Partial Fill upon patient request. guaifenesin [Mucinex] 600 mg Tablet Extended Release 12hr 600 mg PO BID Qty: 14 0RF amoxicillin-pot clavulanate 875-125 mg tablet 1 tab PO BID Qty: 10 0RF enoxaparin 40 mg/0.4 mL syringe 40 mg subcut DAILY 40 Days Qty: 16 0RF Continued fluticasone propionate [Flonase Allergy Relief] 50 mcg/actuation spray,suspension 2 spray intranasal DAILY Qty: 3 3RF Rx Instructions: administer into each nostril Ozempic 2 mg/dose (8 mg/3 mL) pen injector 2 mg subcut QWEEK Qty: 3 3RF trazodone 100 mg tablet 100 mg PO BEDTIME 90 Days Qty: 90 3RF cyclobenzaprine 10 mg tablet 10 mg PO TID PRN (Reason: pain) Qty: 14 0RF simvastatin 40 mg tablet 40 mg PO BEDTIME Qty: 90 3RF Multivitamin 50 Plus Tablet 1 tab PO DAILY glucosamine HCl 1,500 mg Tablet 1,500 mg PO BID Rx Instructions: administer with a meal cholecalciferol (vitamin D3) [Vitamin D3] 50 mcg (2,000 unit) Capsule 50 mcg PO DAILY metformin 500 mg tablet 500 mg PO DAILY gabapentin 600 mg tablet 600 mg PO BEDTIME mupirocin 2 % ointment 1 appl topical BID PRN (Reason: Sores) lactulose 10 gram/15 mL Solution 20 g PO BID PRN (Reason: Constipation) Neosporin ([id number]) 3.5-400-5,000 [id number] Ointment In Packet 1 appl TOPICAL QID PRN (Reason: sores) (DME) CPAP 0 .Route .MEDSUPPLY Qty: 1 Held lisinopril 5 mg tablet 5 mg PO DAILY Qty: 90 3RF Hold Instructions: 1 week and monitor Blood pressure if needed Discharge Orders: Discharge Order (Routine); Ordered 02/11/25 Ordered By: Armond Montero Diet: Diabetic diet Activity on Discharge: As tolerated Stand Alone Forms: Patient Portal Discharge page Print Language: Czech Other Ambulatory Orders: Basic Metabolic Panel (Routine) Timeframe: 5 Days Facility: [facility] - Location: Laboratory Ordered By: Armond Montero Care Plan Goals: Continue Augmentin for 5 more days Mucinex for 7 more days Oxycodone as needed for pain Lovenox for clot prevention Hold Lisinopril for 1 week and repeat kidney function before restarting Follow with Orthopedic for wound check in 2 weeks Follow with PCP for CT chest as outpatient Health Concerns: Femoral neck fracture Pneumonia Plan of Treatment: Physical Therapy for total hip arthroplasty: posterior precautions, gait training, ROM, strength Limit stair climbing No showering, no tub bath-keep dressing clean, dry and intact No driving x 6 weeks Continue Lovenox once a day x 6 weeks Follow up with [facility] Orthopedics in 2 weeks Assessment: as above
[2025-02-11 10:55] VITALS: BP 126/74; PULSE 88; RESP 18; TEMP 37.1; O2SAT 94
== END 2025-02-11 11:22 | disposition skilled nursing facility (03) | DRG 521 ==
LOC: HO.ED 16:05 → HO.EDOVER 17:34 → HO.S3 19:07
PROVIDERS: Orthopaedic Surgery; Admitting Provider Student in an Organized Health Care Education/Training Program; Emergency Provider Emergency Medicine; PCP Internal Medicine; Visit Provider Student in an Organized Health Care Education/Training Program
PROC: 0SRS0JA Replacement of Left Hip Joint, Femoral Surface with Synthetic Substitute, Uncemented, Open Approach (ICD-10-PCS; principal; 2025-02-07 11:30)
DX: S72.002A Fracture of unspecified part of neck of left femur, initial encounter for closed fracture (principal); A41.9 Sepsis, unspecified organism; J18.9 Pneumonia, unspecified organism; J98.11 Atelectasis; N17.9 Acute kidney failure, unspecified; W19.XXXA Unspecified fall, initial encounter; I10 Essential (primary) hypertension; L03.031 Cellulitis of right toe; G47.33 Obstructive sleep apnea (adult) (pediatric); R91.1 Solitary pulmonary nodule; E11.9 Type 2 diabetes mellitus without complications; E78.5 Hyperlipidemia, unspecified; J45.909 Unspecified asthma, uncomplicated; Z87.891 Personal history of nicotine dependence; Z79.51 Long term (current) use of inhaled steroids; Z79.84 Long term (current) use of oral hypoglycemic drugs; Z79.85 Long-term (current) use of injectable non-insulin antidiabetic drugs; Z79.899 Other long term (current) drug therapy
CPT/HCPCS: 36415; 71045; 72170; 73502; 80048; 80076; 81003; 82947; 83605; 83690; 84484; 85025; 85610; 86850; 86900; 86901; 87040; 88305; 88311; 93005; 94660; 97110; 97162; 97166; 97530; 99285; C1776; J0330; J0690; J1171; J1644; J2371; J2405; J2543; J2795; J3010; J7120

== ENCOUNTER → 2025-02-06 14:22 | Outpatient (BNV) | payer MEDICARE, SELFPAY | PROVIDERS: Emergency Provider Emergency Medicine; PCP Internal Medicine; Visit Provider Student in an Organized Health Care Education/Training Program | DX: S72.002A Fracture of unspecified part of neck of left femur, initial encounter for closed fracture (principal) | CPT/HCPCS: 99223; 99232 ==

== ENCOUNTER → 2025-02-06 14:28 | Outpatient (BNV) | payer MEDICARE, SELFPAY | PROVIDERS: Emergency Provider Emergency Medicine; PCP Internal Medicine; Visit Provider Radiology Diagnostic Radiology | DX: M25.552 Pain in left hip (principal); R91.1 Solitary pulmonary nodule | CPT/HCPCS: 71045; 73502 ==

== ENCOUNTER → 2025-02-06 14:42 | Outpatient (BNV) | payer MEDICARE, SELFPAY | PROVIDERS: Admitting Provider Student in an Organized Health Care Education/Training Program; Emergency Provider Emergency Medicine; PCP Internal Medicine; Visit Provider Internal Medicine Cardiovascular Disease | DX: I44.0 Atrioventricular block, first degree (principal); I49.1 Atrial premature depolarization; I49.3 Ventricular premature depolarization; I45.10 Unspecified right bundle-branch block | CPT/HCPCS: 93010 ==

== ENCOUNTER 2025-02-06 16:27 | Outpatient (BNV) | payer MEDICARE, SELFPAY | END 2025-02-08 13:18 | PROVIDERS: Admitting Provider Student in an Organized Health Care Education/Training Program; Emergency Provider Emergency Medicine; PCP Internal Medicine; Visit Provider Radiology Diagnostic Radiology | DX: R09.02 Hypoxemia (principal) | CPT/HCPCS: 71045 ==

== ENCOUNTER 2025-02-06 16:27 | Outpatient (BNV) | payer MEDICARE, SELFPAY | END 2025-02-09 19:30 | PROVIDERS: Admitting Provider Student in an Organized Health Care Education/Training Program; Emergency Provider Emergency Medicine; PCP Internal Medicine; Visit Provider Radiology Neuroradiology | DX: R22.42 Localized swelling, mass and lump, left lower limb (principal) | CPT/HCPCS: 72170 ==

== ENCOUNTER → 2025-02-06 16:27 | Outpatient (BNV) | payer MEDICARE, SELFPAY | PROVIDERS: Admitting Provider Student in an Organized Health Care Education/Training Program; Emergency Provider Emergency Medicine; PCP Internal Medicine; Visit Provider Physician Assistant | DX: S72.002A Fracture of unspecified part of neck of left femur, initial encounter for closed fracture (principal) | CPT/HCPCS: 27236; 99024; 99223 ==

== ENCOUNTER 2025-02-23 07:57 | Outpatient (REF) | payer MEDICARE, SELFPAY ==
--- NOTE | ~2025-02-23 | XR_ITS ---
CLINICAL HISTORY: M25.559 - Pain in unspecified hip 1 view pelvis Comparison: X-ray of the pelvis from 02/09/2025. Findings: No significant change in right hip arthroplasty are partial hip arthroplasty hardware in the [id number]. Lateral plate and screw fixation of the right femur diaphysis also partially imaged redemonstrated. Os acetabulum and/or small old fragment unchanged about upper lateral margin of the right acetabulum. No definite new or acute displaced fracture by one view radiograph of the pelvis. Vascular calcifications noted. IMPRESSION: 1. No significant change in arthroplasty hardware by one view radiograph. No definite hardware loosening by radiographs in the [id number]. 2. No acute displaced fracture of the imaged pelvis. This document has been electronically signed by: Sean Gonzalez MD on 02/24/2025 20:53:07
== END 2025-02-23 07:58 | disposition home or self-care (01) ==
LOC: HO.HOSX 07:57
PROVIDERS: Visit Provider Physician Assistant
DX: M25.552 Pain in left hip (principal); Z96.642 Presence of left artificial hip joint
CPT/HCPCS: 72170

== ENCOUNTER → 2025-02-23 08:10 | Outpatient (BNV) | payer MEDICARE, SELFPAY | PROVIDERS: Visit Provider Radiology Neuroradiology | DX: M25.559 Pain in unspecified hip (principal) | CPT/HCPCS: 72170 ==

== ENCOUNTER 2025-02-23 08:12 | Outpatient (AMB) | payer MEDICARE, SELFPAY ==
--- NOTE | 2025-02-23 08:14 | A.OFFVIS_ITS ---
Intake Visit Reasons: PO s/p left hip vishal 02/06/25 with NE Intake Note: Festus is a 74 year old male who presents today for a post op appointment s/p Left hip vishal 02/06/25 NE. Patient reports he is doing well he had been walking with a walker. Allergies terbinafine [From LAMISIL] Adverse Reaction (Intermediate, Verified 02/23/25 08:27) GI UPSET Lamisil Allergy (Unknown, Uncoded 02/07/25 10:50) Stomach Upset HPI HPI PO s/p left hip vishal 02/06/25 with NE: Details: Mr. Munoz is a 74-year-old male who presents to the office today status post left hip hemiarthroplasty performed on 02/06/[address] Barreto. Patient is residing at [facility]. He is scheduled to DC home on Wednesday03/07/2025. He reports that he is working with physical therapy and is experiencing minimal discomfort. He is only taking Tylenol for pain at this time. No additional complaints. [facility] Medical History SOB (shortness of breath) on exertion Impacted cerumen of both ears Aortic dilatation Cholelithiasis Obstructive sleep apnea Erectile dysfunction Hypercholesterolemia Peripheral neuropathy Asthma Type 2 diabetes mellitus with hyperglycemia Chronic low back pain Hypertension Surgical History S/P ORIF (open reduction internal fixation) fracture History of left knee replacement History of total right knee replacement History of right hip replacement History of pericardiectomy H/O lumbar discectomy Family History Mother Mental health disorder Social History Household Members: Spouse Housing: House Do you presently have visiting nurse or other home services: No Alcohol intake: current Alcohol intake frequency: holidays/special occasions only Comment: COUNTS CORRECT Patient Tobacco Use Status: Former Tobacco user Tobacco use type: Cigarette Years Smoked: stopped 1994 e-Cigarette/Vaping Use: Never Used Second Hand Smoke Exposure: Yes Advance Directives Date on File: 12/26/21 service: Yes Current occupational status: retired Cognitive needs: No Hearing needs: Yes Vision needs: Yes Review of Systems Const All systems reviewed & are unremarkable except as noted in HPI and below Physical Exam Const General: cooperative, healthy appearing and no acute distress Resp Effort & Inspection: normal respiratory effort and able to speak in complete sentences Extrem Other: Left hip incision site clean dry and intact. [place] intact. No surrounding erythema or drainage. No signs of infection. Difficulty performing straight leg raise. Good internal external rotation with minimal pain. NVI. Assessment & Plan Assessment & Plan (1) Status post hemiarthroplasty of left hip: Code(s): Z96.642 - Presence of left artificial hip joint Category: Surgical Plan Mr. Munoz is a 74-year-old male who presents to the office today status post left hip hemiarthroplasty performed on 02/06/[address] Barreto. Patient is residing at [facility]. He is scheduled to DC home on Wednesday03/07/2025. He reports that he is working with physical therapy and is experiencing minimal discomfort. He is only taking Tylenol for pain at this time. No additional complaints. While in the office today guero removed and Steri-Strips were applied. He may continue to weightbear as tolerated with the use of a walker on the left lower extremity. Physical therapy to continue working on glute core quad strengthening as well as gait training with the use of a walker. Lovenox for DVT prophylaxis will be continued for a total of 6 weeks postoperatively. He will follow up in 4 weeks with repeat x-rays, sooner if needed. X-rays of the pelvis which were obtained while in the office today and were reviewed by me, Cynthia Thompson PA-C, revealed left hip hemiarthroplasty with satisfactory alignment. Orders: Orders XR pelvis 1-2V Today M25.559 - Pain in unspecified hip Coding Level of Care Code Global (22098) Diagnoses Status post hemiarthroplasty of left hip Z96.642
--- OUTSIDE RECORDS SUMMARY | 2025-02-23 08:15 | XMS_ITS ---
[facility] Organization [facility] [place] Address [address] [place] [address] Care Team Providers Care Manager Fashion Name Role Phone Daniel Romano Primary Care Provider Chantel Smith Unavailable [phone] Allergies Allergen (clinical drug ingredient) Drug/Non Drug Allergy documented on EMR Reaction Allergy Type Onset Date Status Lamisil sick Drug Allergy Active Medications Medication SIG (Take, Route, Frequency, Duration) Notes Start Date End Date Status Diflucan 200 MG 1 tablet Orally Once a week for 30 days Not-Taking flovent HFA prn Not-Taki [...] on feet for 30 days 04/17/2024 Active Aspirin 81 MG [...] areas on feet for 30 days Active Encounters Encounter Location Date Provider Diagnosis [facility] [address] [address] 10/19/2024 Chantel Infante Plan Of Treatment Next Appt Details Provider Name:Chantel Askew allison, 03/28/2025 03:15:00 PM, [address] [place] [address], [id number], Progress Notes * ALEXANDERFestus DallasDOB:1950 ( 74 yo M)Acc No.[id number]:10/19/2024 Progress Note Patient:?Festus MUNOZ Provider:?Chantel Infante DPM :1950???Age:74 Y???Sex:Male Michael e:10/19/2024 Address:[address] [place] [address] Pcp:Daniel Romano Subjective: * Chief Complaints: * ??? * Medical History:?Arthritis, Back,Hip,and Knee pain, Broken bones, Measles, Mumps, Chicken pox, Joint implants/screws, COPD, type II diabetes. * Medications:?Taking Ozempic , Taking Amoxicillin 500 MG 4pills [...] 1 tablet Orally Once a week * Allergies:?Lamisil: sick. Objective: * Vitals:? Assessment: Plan: * Treatment: * Images: * The named appointment provid er may or may not be the originator of this progress note, and it is not deemed complete until electronically signed by the appointment provider. Sign off status: Pending * Provider:?Chantel Infante DPM Date:?0 10/19/2024 Generated for Lorrie schaefer/Tequila/Barbara on:?02/23/2025 08:15 AM EDT
== END 2025-02-23 09:05 | disposition home or self-care (01) ==
LOC: HO.HOS 08:12
PROVIDERS: PCP Internal Medicine; Visit Provider Physician Assistant
DX: Z96.642 Presence of left artificial hip joint (principal)
CPT/HCPCS: 99024

== ENCOUNTER 2025-03-10 07:34 | Outpatient (REF) | payer MEDICARE, SELFPAY ==
--- OUTSIDE RECORDS SUMMARY | 2024-10-19 05:15 | XMS_ITS ---
Author Organization [facility] [place] Address [address] [place] [address] Care Team Providers Care Transit Mixer Operator Name Role Phone Daniel Romano Primary Care Provider Chantel Smith Unavailable [phone] Allergies Allergen (clinical drug ingredient) Drug/Non Drug [...] Active Encounters Encounter Location Date Provider Diagnosis [facility] [address] [address] 10/19/2024 Chantel Infante Plan Of Treatment Next Appt Details Provider Name:Chantel Askew allison, 03/28/2025 03:15:00 PM, [address] [place] [address], [phone], Progress Notes * Festus MUNOZDOB:1950 ( 74 yo M)Acc No.[id number]:10/19/2024 Progress Note Patient: Festus BARRIENTOS Provider: Rosemary Infante DPM :1950 A ge:74 Y S ex:Male Date:10/19/2024 Address:[address] [place] [address], [place] Pcp:Daniel Romano Subjective: * Chief Complaints: * [...] 10/19/2024 Generated for Lorrie schaefer/Tequila/Barbara on: 0 03/10/2025 07:36 AM EDT
[2025-03-10 11:04] LABS: MANUAL DIFF FLAG NO
[2025-03-10 11:19] LABS: Basophils Percent Auto 0.4 % (0-2); Eosinophils Absolute Auto 0.3 X10*3/uL (0.0-0.4); Eosinophils Percent Auto 2.9 % (0-4); Hematocrit 34.7 % (42.0-52.0); Hemoglobin 11.2 g/dl (14.0-18.0); Imm Gran Abs Auto 0.04 X10*3/uL (0.00-0.03); Imm Gran Pct Auto 0.4 % (0.0-0.4); Lymphocytes Absolute Auto 1.1 X10*3/uL (1.2-4.9); Lymphocytes Percent Auto 12.4 % (20-40); Mean Corpuscular HGB Conc 32.3 g/dl (31.0-36.0); Mean Corpuscular Hemoglobin 31.1 pg (27.0-33.0); Mean Corpuscular Volume 96.4 fL (80.0-98.0); Mean Platelet Volume 9.7 fL (9.4-12.4); Monocytes Absolute Auto 1.2 X10*3/uL (0.1-1.2); Monocytes Percent Auto 13.3 % (2-11); Neutrophils Absolute Auto 6.4 x10*3/uL (2.0-8.3); Neutrophils Percent Auto 70.6 % (45-73); Platelet Count 223 X10*3/uL (160-400); Red Cell Distribution Width 13.2 % (11.0-16.0); White Blood Count 9.1 X10*3/uL (4.8-10.8)
[2025-03-10 11:26] LABS: B Type Natriuretic Peptide 26 pg/mL (<100); Estimated Average Glucose 100 mg/dL; Hemoglobin A1c % 5.1 % (<6.0)
[2025-03-10 11:40] LABS: Alanine Aminotransferase 13 U/L (0-40); Albumin Level 3.8 g/dL (3.5-5.0); Alkaline Phosphatase 80 U/L (39-117); Anion Gap 15 (12-20); Aspartate Amino Transferase 20 U/L (5-37); Bilirubin Total 0.7 mg/dL (0.0-1.0); Blood Urea Nitrogen 20 mg/dL (9-16); Calcium 9.1 mg/dL (8.4-10.2); Carbon Dioxide 25 mmol/L (22-29); Chloride 107 mmol/L (96-108); Cholesterol 123 mg/dL (<200); Estimated Glomerular Filt Rate 55; Glucose Random 136 mg/dL (60-115); HDL Cholesterol 46 mg/dL (>40); LDL Cholesterol Calculated 64 mg/dL (<100); Potassium 4.8 mmol/L (3.3-5.1); Sodium 142 mmol/L (135-145); Total Protein 6.6 g/dL (6.5-8.0); Triglycerides 68 mg/dL (<150)
[2025-03-10 11:41] LABS: Thyroid Stimulating Hormone 1.25 uIU/mL (0.32-4.0)
[2025-03-10 11:53] LABS: Free T4 (Free Thyroxine) 0.87 ng/dL (0.71-1.85)
[2025-03-10 11:59] LABS: Folate 15.2 ng/mL (> or = 4.0); Prostate Specific Antigen Scr 0.78 ng/mL (<0.05-4.0); Vitamin B12 731 pg/mL (200-900)
[2025-03-10 12:04] LABS: Creatinine Urine 261.21 mg/dL; Microalbum/Creatinine Ratio Ur 15.6 ug/mg cr (<30)
== END 2025-03-10 07:35 | disposition home or self-care (01) ==
LOC: HO.HMGCLDS 07:34
PROVIDERS: Student in an Organized Health Care Education/Training Program; PCP Internal Medicine; Visit Provider Internal Medicine
DX: E78.00 Pure hypercholesterolemia, unspecified (principal); E11.65 Type 2 diabetes mellitus with hyperglycemia
CPT/HCPCS: 36415; 80053; 80061; 82043; 82570; 82607; 82746; 83036; 83880; 84153; 84439; 84443; 85025

== ENCOUNTER 2025-03-19 14:30 | Outpatient (AMB) | payer MEDICARE, SELFPAY ==
--- OUTSIDE RECORDS SUMMARY | 2024-10-19 05:15 | XMS_ITS ---
Author Organization [facility] [place] Address [address] [place] [address] Care Team Providers Care Starch Crab Name Role Phone Daniel Romano Primary Care Provider Chantel Smith Unavailable [phone] Allergies Allergen (clinical drug ingredient) Drug/Non Drug [...] Active Encounters Encounter Location Date Provider Diagnosis [facility] [address] [address] 10/19/2024 Chantel Infante Plan Of Treatment Next Appt Details Provider Name:Chantel Askew allison, 03/28/2025 03:15:00 PM, [address] [place] [address], [address], Progress Notes * Festus MUNOZDOB:1950 ( 74 yo M)Acc No.[id number]:10/19/2024 Progress Note Patient: Festus BARRIENTOS Provider: Rosemary Infante DPM :1950 A ge:74 Y S ex:Male Date:10/19/2024 Address:[address] [place] [address], [place] Pcp:Daniel Romano Subjective: * Chief Complaints: * [...] DPM Date: 0 10/19/2024 Generated for Lorrie scahefer/Tequila/Barbara on: 0 03/19/2025 03:03 PM EDT
--- OUTSIDE RECORDS SUMMARY | 2025-02-23 03:14 | XMS_ITS | Continuity of Care Document ---
Author Name [facility] Organization [facility] Care Team Providers Care Gas Tender Name Role Phone [facility] Unavailable Unavailable Problems Combined list of problems from 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 It does not include entries that were removed or entered in error. Problem Status Onset Date Problem Type Date of Resolution Comments Source Hypercholesterolemia Active 019 Condition Feb 14, 2019 Entered By: ALECIA WOOD Comment: treated with medication [facility] Impaired fasting glycaemia (SNOMED [place] [id number]) Active 014 Condition [facility] Tremor Active 010 Condition [facility] Disc Disease Active 009 Condition [facility] Diabetes Mellitus Type 2 ([facility] [id number]) Active Condition [facility] [...] DAILY NEEDED FOR DRY EYE OPHTHA LMIC 12/23/2024 [id number] 4 Rocky LOWRY 2023 [facility] METFORMIN HCL TAB,ORAL TAKE BY MOUTH TWICE DAILY ORAL ACTIVE Rocky LOWRY 2018 [facility] SIMVASTATIN 20MG TAB TAKE ONE-HALF TABLET BY MOUTH AT BEDTIME ORAL ACTIVE JOSH WOOD 2023 [facility] Immunizations Combined list of available immunizations from the 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 Immunization Series Date Given Administered By Site Reaction Lot Number CVX Code Drug Leader Assembler Status Comments Source INFLUENZA, UNSPECIFIED FORMULATION 2021 88 complet ed HISTORICA L INFORMATI ON - FROM PATIENT'S RECALL, [facility] COVID-19 (PFIZER), MRNA, LNP-S, PF, 30 MCG/0.3 ML DOSE 3 2020 208 complet ed HISTORICA L INFORMATI ON - FROM PATIENT'S WRITTEN RECORD, [facility] COVID-19 (PFIZER), MRNA, LNP-S, PF, 30 MCG/0.3 ML DOSE 2 2020 208 complet ed HISTORICA L INFORMATI ON - FROM PATIENT'S WRITTEN RECORD, Lot#: [id number] [facility] COVID-19 (PFIZER), MRNA, LNP-S, PF, 30 MCG/0.3 ML DOSE 1 2020 208 complet ed HISTORICA L INFORMATI ON - FROM PATIENT'S WRITTEN RECORD, Lot#: [id number] [facility] INFLUENZA, UNSPECIFIED FORMULATION 2019 88 complet ed [facility] INFLUENZA, SEASONAL, INJECTABLE 2018 141 complet ed [facility] INFLUENZA, SEASONAL, INJECTABLE 2016 141 [facility] (HISTORICAL) 2015 88 complet ed [facility] FLU,3 YRS (HISTORICAL) 2014 88 [...] PM Reporting Lab: [facility] [address] [address] Performing Lab: [facility] [address] [facility] [address] [facility] LIVER FUNCTION ALBUMIN [MASS/VOLU ME] IN SERUM OR PLASMA 3.7 g/dL 3.5 - 5.0 02/07 Specimen Type: SERUM No comment entered. Ordering Provider: LATRICIA WOOD Report Released Date/Time: February 06, 2024 07:32 PM Reporting Lab: [facility] [address] [facility] [address] Performing Lab: [facility] [place] [facility] [address] [facility] [address] [facility] LIVER FUNCTION ALKALINE PHOSPHATAS E [ENZYMATIC ACTIVITY/V OLUME] IN SERUM OR PLASMA 41 U/L 40 - 150 02/07 Specimen Type: SERUM No comment entered. Ordering Provider: LATRICIA WOOD Report Released Date/Time: February 06, 2024 07:32 PM Reporting Lab: [facility] [address] [facility] [address] Performing Lab: [facility] [place] [facility] [address] [facility] [address] [facility] [place] [facility] LIVER FUNCTION ASPARTATE AMINOTRANS FERASE [ENZYMATIC ACTIVITY/V OLUME] IN SERUM OR PLASMA 18 U/L 5 - 34 02/07 Specimen Type: SERUM No comment entered. Ordering Provider: LATRICIA WOOD Report Released Date/Time: February 06, 2024 07:32 PM Reporting Lab: [facility] [address] [facility] [address] Performing Lab: [facility] [address] [facility] [address] [facility] LIVER FUNCTION ALANINE AMINOTRANS FERASE [ENZYMATIC ACTIVITY/V OLUME] IN SERUM OR PLASMA 21 U/L 02/07 Specimen Type: SERUM No comment entered. Ordering Provider: LATRICIA WOOD Report Released Date/Time: February 06, 2024 07:32 PM Reporting Lab: [facility] [place] [facility] [address] [facility] [address] Performing Lab: [facility] [place] [facility] [address] [facility] [address] [facility] [place] [facility] LIVER FUNCTION BILIRUBIN. TOTAL [MASS/VOLU ME] IN SERUM OR PLASMA 0.8 mg/dL 0.2 - 1.2 02/07 Specimen Type: SERUM No comment entered. Ordering Provider: LATRICIA WOOD Report Released Date/Time: February 06, 2024 07:32 PM Reporting Lab: [facility] [place] [facility] [address] [facility] [address] Performing Lab: [facility] [address] [facility] [address] [facility]RLAWRENCE MEDICAL CENTERTRN [facility] BASIC METABOLI C PANEL (fasting ) UREA NITROGEN [MASS/VOLU ME] IN SERUM OR PLASMA 14 mg/dL 7 - 25 02/07 Specimen Type: SERUM No comment entered. Ordering Provider: LATRICIA WOOD Report Released Date/Time: February 06, 2024 07:32 PM Reporting Lab: [facility] [place] [place] [facility] [address] [facility] [address] Performing Lab: [facility] [place] [place] [facility] [address] [facility] [address] [facility]RLAWRENCE MEDICAL CENTERTRN [facility] BASIC METABOLI C PANEL (fasting ) GLUCOSE [MASS/VOLU ME] IN SERUM OR PLASMA 126 mg/dL 65 - 100 02/07 H Specimen Type: SERUM No comment entered. Ordering Provider: LATRICIA WOOD Report Released Date/Time: February 06, 2024 07:32 PM Reporting Lab: [facility] [place] [facility] [address] [facility] [address] Performing Lab: [facility] [place] [facility] [address] [facility] [address] [facility]PITALRLAWRENCE MEDICAL CENTERTRN [place] [facility] BASIC METABOLI C PANEL (fasting ) SODIUM [MOLES/VOL UME] IN SERUM OR PLASMA 140 mmol/L 135 - 145 02/07 Specimen Type: SERUM No comment entered. Ordering Provider: LATRICIA WOOD Report Released Date/Time: February 06, 2024 07:32 PM Reporting Lab: [facility] [address] [address] Performing Lab: [facility] [place] [facility] [address] [facility] [address] [facility] [facility] BASIC METABOLI C PANEL (fasting ) POTASSIUM [MOLES/VOL UME] IN SERUM OR PLASMA 4.9 mmol/L 3.5 - 5.0 02/07 Specimen Type: SERUM No comment entered. Ordering Provider: LATRICIA WOOD Report Released Date/Time: February 06, 2024 07:32 PM Reporting Lab: [facility] [place] [address] [address] Performing Lab: [facility] [place] [address] [address] [facility] WSTRN [place] [facility] BASIC METABOLI C PANEL (fasting ) CHLORIDE [MOLES/VOL UME] IN SERUM OR PLASMA 105 mmol/L 100 - 110 02/07 Specimen Type: SERUM No comment entered. Ordering Provider: LATRICIA WOOD Report Released Date/Time: February 06, 2024 07:32 PM Reporting Lab: [facility] [place] [address] [address] Performing Lab: [facility] [place] [address] [address] [facility] [facility] BASIC METABOLI C PANEL (fasting ) CARBON DIOXIDE, TOTAL [MOLES/VOL UME] IN SERUM OR PLASMA 25 meq/L 20 - 30 02/07 Specimen Type: SERUM No comment entered. Ordering Provider: LATRICIA WOOD Report Released Date/Time: February 06, 2024 07:32 PM Reporting Lab: [facility] [place] [address] [address] Performing Lab: [facility] [place] [address] [address] [facility] [facility] BASIC METABOLI C PANEL (fasting ) CREATININE [MASS/VOLU ME] IN SERUM OR PLASMA 1.10 mg/dL 0.50 - 1.40 02/07 Specimen Type: SERUM No comment entered. Ordering Provider: LATRICIA WOOD Report Released Date/Time: February 06, 2024 07:32 PM Reporting Lab: [facility] [place] [place] [address] [address] Performing Lab: [facility]OSPITALRL TRN [facility]ITALUSETS [address] [address] [facility]OSPITALRL [facility]ENTERN [place] [facility] BASIC METABOLI C PANEL (fasting ) GLOMERULAR FILTRATION RATE/1.73 SQ M.PREDICTE D [VOLUME RATE/AREA] IN SERUM, PLASMA OR BLOOD BY CREATININE -BASED FORMULA (CKD-EPI 2020) 70 mL/min 60 02/07 Specimen Type: SERUM No comment entered. Ordering Provider: LATRICIA WOOD Report Released Date/Time: February 06, 2024 07:32 PM Reporting Lab: [facility]ITALRL TRN MASSUSE[address] [address] Performing Lab: [facility] [place] [address] [address] [facility]OSPITALRCOOSA VALLEY MEDICAL CENTERN [facility]ITALUSE [facility] CBC AND DIFF (AUTO) LEUKOCYTES [#/VOLUME] IN BLOOD BY AUTOMATED COUNT 6.68 10*3/uL 4.50 - 11.00 02/07 Specimen Type: BLOOD No comment entered. Ordering Provider: LATRICIA WOOD Report Released Date/Time: February 06, 2024 07:32 PM Reporting Lab: [facility] [place] [address] [address] Performing Lab: [facility]ITAL[facility] [address] [address] [facility]ITALRCOOSA VALLEY MEDICAL CENTERN [place] [facility] CBC AND DIFF (AUTO) ERYTHROCYT ES [#/VOLUME] IN BLOOD BY AUTOMATED COUNT 4.23 10*6/uL 4.23 - 5.66 02/07 Specimen Type: BLOOD No comment entered. Ordering Provider: LATRICIA WOOD Report Released Date/Time: February 06, 2024 07:32 PM Reporting Lab: [facility] [place] [facility] [address] [facility] [address] Performing Lab: [facility] [address] [facility] [address] [facility] [place] [facility] CBC AND DIFF (AUTO) HEMOGLOBIN [MASS/VOLU ME] IN BLOOD 13.7 g/dL 12.8 - 17 02/07 Specimen Type: BLOOD No comment entered. Ordering Provider: LATRICIA WOOD Report Released Date/Time: February 06, 2024 07:32 PM Reporting Lab: [facility] [place] [facility] [address] [facility] [address] Performing Lab: [facility] [place] [facility] [address] [facility] [address] [facility] [place] [facility] CBC AND DIFF (AUTO) HEMATOCRIT [VOLUME FRACTION] OF BLOOD BY AUTOMATED COUNT 40.4 39.2 - 50.4 02/07 Specimen Type: BLOOD No comment entered. Ordering Provider: LATRICIA WOOD Report Released Date/Time: February 06, 2024 07:32 PM Reporting Lab: [facility] [place] [facility] [address] [facility] [address] Performing Lab: [facility] [place] [facility] [address] [facility] [address] [facility] [place] [facility] CBC AND DIFF (AUTO) MCV [ENTITIC VOLUME] BY AUTOMATED COUNT 95.5 fL 82 - 99 02/07 Specimen Type: BLOOD No comment entered. Ordering Provider: LATRICIA WOOD Report Released Date/Time: February 06, 2024 07:32 PM Reporting Lab: [facility] [place] [facility] [address] [facility] [address] Performing Lab: [facility] [place] [facility] [address] [facility] [address] [facility] [place] [facility] CBC AND DIFF (AUTO) MCHC [MASS/VOLU ME] BY AUTOMATED COUNT 33.9 g/dL 30.8 - 35.1 02/07 Specimen Type: BLOOD No comment entered. Ordering Provider: LATRICIA WOOD Report Released Date/Time: February 06, 2024 07:32 PM Reporting Lab: [facility] [address] [facility] [address] Performing Lab: [facility] [address] [facility] [address] [facility] [place] [facility] CBC AND DIFF (AUTO) PLATELETS [#/VOLUME] IN BLOOD BY AUTOMATED COUNT 196 10*3/uL 140 - 360 02/07 Specimen Type: BLOOD No comment entered. Ordering Provider: LATRICIA WOOD Report Released Date/Time: February 06, 2024 07:32 PM Reporting Lab: [facility] [place] [facility] [address] [facility] [address] Performing Lab: [facility] [place] [facility] [address] [facility] [address] [facility] [place] [facility] CBC AND DIFF (AUTO) ERYTHROCYT E DISTRIBUTI ON WIDTH [RATIO] BY AUTOMATED COUNT 12.6 12.0 - 16.0 02/07 Specimen Type: BLOOD No comment entered. Ordering Provider: LATRICIA WOOD Report Released Date/Time: February 06, 2024 07:32 PM Reporting Lab: [facility] [place] [facility] [address] [facility] [address] Performing Lab: [facility] [address] [facility] [address] [facility] [place] [facility] CBC AND DIFF (AUTO) MONOCYTES [#/VOLUME] IN BLOOD BY AUTOMATED COUNT 0.73 10*3/uL 0.30 - 1.10 02/07 Specimen Type: BLOOD No comment entered. Ordering Provider: LATRICIA WOOD Report Released Date/Time: February 06, 2024 07:32 PM Reporting Lab: [facility] [address] [facility] [address] Performing Lab: [facility] [place] [facility] [address] [facility] [address] [facility] [place] CBC AND DIFF (AUTO) MCH [ENTITIC MASS] BY AUTOMATED COUNT 32.4 pg 26.2 - 32.6 02/07 Specimen Type: BLOOD No comment entered. Ordering Provider: LATRICIA WOOD Report Released Date/Time: February 06, 2024 07:32 PM Reporting Lab: [facility] [address] [facility] [address] Performing Lab: [facility] [address] [facility] [address] [facility] [place] CBC AND DIFF (AUTO) NEUTROPHIL S/100 LEUKOCYTES IN BLOOD BY AUTOMATED COUNT 68.4 43.7 - 75.8 02/07 Specimen Type: BLOOD No comment entered. Ordering Provider: LATRICIA WOOD Report Released Date/Time: February 06, 2024 07:32 PM Reporting Lab: [facility] [address] [facility] [address] Performing Lab: [facility] [address] [facility] [address] [facility] [place] [facility] CBC AND DIFF (AUTO) LYMPHOCYTE S/100 LEUKOCYTES IN BLOOD BY AUTOMATED COUNT 16.6 14.0 - 42.3 02/07 Specimen Type: BLOOD No comment entered. Ordering Provider: LATRICIA WOOD Report Released Date/Time: February 06, 2024 07:32 PM Reporting Lab: [facility] [address] [facility] [address] Performing Lab: [facility] [address] [facility] [address] [facility] [place] CBC AND DIFF (AUTO) MONOCYTES/ 100 LEUKOCYTES IN BLOOD BY AUTOMATED COUNT 10.9 5.1 - 13.7 02/07 Specimen Type: BLOOD No comment entered. Ordering Provider: LATRICIA WOOD Report Released Date/Time: February 06, 2024 07:32 PM Reporting Lab: [facility] [address] [facility] [address] Performing Lab: [facility] [address] [facility] [address] [facility] [place] CBC AND DIFF (AUTO) EOSINOPHIL S/100 LEUKOCYTES IN BLOOD BY AUTOMATED COUNT 3.1 0.4 - 6.8 02/07 Specimen Type: BLOOD No comment entered. Ordering Provider: LATRICIA WOOD Report Released Date/Time: February 06, 2024 07:32 PM Reporting Lab: [facility] [place] [address] [address] Performing Lab: [facility] [place] [address] [address] [facility] [place] [facility] CBC AND DIFF (AUTO) BASOPHILS/ 100 LEUKOCYTES IN BLOOD BY AUTOMATED COUNT 0.7 0.1 - 2.0 02/07 Specimen Type: BLOOD No comment entered. Ordering Provider: LATRICIA WOOD Report Released Date/Time: February 06, 2024 07:32 PM Reporting Lab: [facility] [place] [address] [address] Performing Lab: [facility] [place] [address] [address] [facility] [place] [facility] CBC AND DIFF (AUTO) NEUTROPHIL S [#/VOLUME] IN BLOOD BY AUTOMATED COUNT 4.56 10*3/uL 2.20 - 7.60 02/07 Specimen Type: BLOOD No comment entered. Ordering Provider: LATRICIA WOOD Report Released Date/Time: February 06, 2024 07:32 PM Reporting Lab: [facility] [place] [address] [address] Performing Lab: [facility] [place] [address] [address] [facility] [place] [facility] CBC AND DIFF (AUTO) LYMPHOCYTE S [#/VOLUME] IN BLOOD BY AUTOMATED COUNT 1.11 10*3/uL 1.00 - 3.20 02/07 Specimen Type: BLOOD No comment entered. Ordering Provider: LATRICIA WOOD Report Released Date/Time: February 06, 2024 07:32 PM Reporting Lab: [facility] [place] [address] [address] Performing Lab: [facility] [place] [facility] [address] [facility] [address] [facility] [place] [facility] CBC AND DIFF (AUTO) EOSINOPHIL S [#/VOLUME] IN BLOOD BY AUTOMATED COUNT 0.21 10*3/uL 0.03 - 0.44 02/07 Specimen Type: BLOOD No comment entered. Ordering Provider: LATRICIA WOOD Report Released Date/Time: February 06, 2024 07:32 PM Reporting Lab: [facility] [place] [facility] [address] [facility] [address] Performing Lab: [facility] [address] [facility] [address] [facility] [place] [facility] CBC AND DIFF (AUTO) BASOPHILS [#/VOLUME] IN BLOOD BY AUTOMATED COUNT 0.05 10*3/uL 0.01 - 0.13 02/07 Specimen Type: BLOOD No comment entered. Ordering Provider: LATRICIA WOOD Report Released Date/Time: February 06, 2024 07:32 PM Reporting Lab: [facility] [place] [facility] [address] [facility] [address] Performing Lab: [facility] [place] [facility] [address] [facility] [address] [facility] [place] [facility] CBC AND DIFF (AUTO) IMMATURE GRANULOCYT ES/100 LEUKOCYTES IN BLOOD BY AUTOMATED COUNT 0.3 0.0 - 0.7 02/07 Specimen Type: BLOOD No comment entered. Ordering Provider: LATRICIA WOOD Report Released Date/Time: February 06, 2024 07:32 PM Reporting Lab: [facility] [place] [facility] [address] [facility] [address] Performing Lab: [facility] [place] [address] [address] [facility] [place] [facility] CBC AND DIFF (AUTO) IMMATURE GRANULOCYT ES [#/VOLUME] IN BLOOD 0.02 10*3/uL 0.00 - 0.06 02/07 Specimen Type: BLOOD No comment entered. Ordering Provider: LATRICIA WOOD Report Released Date/Time: February 06, 2024 07:32 PM Reporting Lab: [facility] [place] [facility] [address] [facility] [address] Performing Lab: [facility] [place] [facility] [address] [facility] [address] [facility] [place] [facility] TSH THYROTROPI N [UNITS/VOL UME] IN SERUM OR PLASMA 1.39 u[IU]/mL 0.35 - 5.00 02/07 Specimen Type: SERUM No comment entered. Ordering Provider: LATRICIA WODO Report Released Date/Time: February 06, 2024 07:32 PM Reporting Lab: [facility] [place] [facility] [address] [facility] [address] Performing Lab: [facility] [place] [facility] [address] [facility] [address] [facility] [place] [facility] LIPID PANEL FASTING CHOLESTERO L [MASS/VOLU ME] IN SERUM OR PLASMA 162 mg/dL 02/07 Specimen Type: SERUM No comment entered. Ordering Provider: LATRICIA WOOD Report Released Date/Time: February 06, 2024 07:32 PM Reporting Lab: [facility] [place] [facility] [address] [facility] [address] Performing Lab: [facility] [place] [facility] [address] [facility] [address] [facility] [place] [facility] LIPID PANEL FASTING TRIGLYCERI DE [MASS/VOLU ME] IN SERUM OR PLASMA 112 mg/dL 0 - 150 02/07 Specimen Type: SERUM No comment entered. Ordering Provider: LATRICIA WOOD Report Released Date/Time: February 06, 2024 07:32 PM Reporting Lab: [facility] [place] [facility] [address] [facility] [address] Performing Lab: [facility] [place] [facility] [address] [facility] [address] [facility] [place] [facility] LIPID PANEL FASTING CHOLESTERO L IN LDL [MASS/VOLU ME] IN SERUM OR PLASMA BY CALCULATIO N 98 mg/dL 0 - 129 02/07 Specimen Type: SERUM No comment entered. Ordering Provider: LATRICIA WOOD Report Released Date/Time: February 06, 2024 07:32 PM Reporting Lab: [facility] [address] [address] Performing Lab: [facility] [address] [address] [facility] LIPID PANEL FASTING CHOLESTERO L.TOTAL/CH OLESTEROL IN HDL [MASS RATIO] IN SERUM OR PLASMA 3.9 02/07 Specimen Type: SERUM No comment entered. Ordering Provider: LATRICIA WOOD Report Released Date/Time: February 06, 2024 07:32 PM [facility] [address] [address] Per[facility]: [facility] [address] [address] [facility] LIPID PANEL FASTING CHOLESTERO L IN HDL [MASS/VOLU ME] IN SERUM OR PLASMA 42 mg/dL 40 - 60 02/07 Specimen Type: SERUM No comment entered. Ordering Provider: LATRICIA WOOD Report Released Date/Time: February 06, 2024 07:32 PM Reporting Lab: [facility] [address] [address] Performing Lab: [facility] [address] [address] [facility] HEMOGLOB IN A1C PANEL HEMOGLOBIN A1C/HEMOGL [...] PM Reporting Lab: [facility] [place] [facility] [address] [facility] [address] Performing Lab: [facility] [place] [facility] [address] [facility] [address] [facility] [place] [facility] MICROALB UMIN CREATINI NE RATIO PANEL MICROALBUM IN/CREATIN INE [MASS RATIO] IN URINE 12.9 mg/g 0 - 29.9 02/07 Specimen Type: URINE No comment entered. Ordering Provider: LATRICIA WOOD Report Released Date/Time: February 06, 2024 07:32 PM Reporting Lab: [facility] [place] [facility] [address] [facility] [address] Performing Lab: [facility] [place] [facility] [address] [facility] [address] [facility] [place] [facility] MICROALB UMIN CREATINI NE RATIO PANEL MICROALBUM IN [MASS/VOLU ME] IN URINE 1.4 mg/dL 02/07 Specimen Type: URINE No comment entered. Ordering Provider: LATRICIA WOOD Report Released Date/Time: February 06, 2024 07:32 PM Reporting Lab: [facility] [place] [facility] [address] [facility] [address] Performing Lab: [facility] [place] [facility] [address] [facility] [address] [facility] [place] [facility] MICROALB UMIN CREATINI NE RATIO PANEL CREATININE [MASS/VOLU ME] IN URINE 108.66 mg/dL 02/07 Specimen Type: URINE No comment entered. Ordering Provider: LATRICIA WOOD Report Released Date/Time: February 06, 2024 07:32 PM Reporting Lab: [facility] [place] [facility] [address] [facility] [address] Performing Lab: [facility] [place] [facility] [address] [facility] [address] [facility] [place] [facility] URINALYS IS CLEAN CATCH COLOR OF URINE Light-Ye llow 02/07 Specimen Type: URINE Comment: If Glucose = >500 and Ketones are positive, please alert the Physician. Ordering Provider: LATRICIA WOOD Report Released Date/Time: February 06, 2024 07:32 PM Reporting Lab: [facility] [place] [facility] [address] [facility] [address] Performing Lab: [facility] [place] [facility] [address] [facility] [address] [facility] [place] [facility] URINALYS IS CLEAN CATCH APPEARANCE OF URINE Clear 02/07 Specimen Type: URINE Comment: If Glucose = >500 and Ketones are positive, please alert the Physician. Ordering Provider: LATRICIA WOOD Report Released Date/Time: February 06, 2024 07:32 PM Reporting Lab: [facility] [place] [facility] [address] [facility] [address] Performing Lab: [facility] [place] [facility] [address] [facility] [address] [facility] [place] [facility] URINALYS IS CLEAN CATCH GLUCOSE [MASS/VOLU ME] IN URINE NEGATIVE mg/dL 02/07 Specimen Type: URINE Comment: If Glucose = >500 and Ketones are positive, please alert the Physician. Ordering Provider: LATRICIA WOOD Report Released Date/Time: February 06, 2024 07:32 PM Reporting Lab: [facility] [place] [facility] [address] [facility] [address] Performing Lab: [facility] [place] [facility] [address] [facility] [address] [facility] [place] [facility] URINALYS IS CLEAN CATCH KETONES [MASS/VOLU ME] IN URINE BY TEST STRIP NEGATIVE mg/dL 02/07 Specimen Type: URINE Comment: If Glucose = >500 and Ketones are positive, please alert the Physician. Ordering Provider: LATRICIA WOOD Report Released Date/Time: February 06, 2024 07:32 PM Reporting Lab: [facility] [place] [facility] [address] [facility] [address] Performing Lab: [facility] [place] [facility] [address] [facility] [address] [facility] [place] [facility] URINALYS IS CLEAN CATCH ERYTHROCYT ES [PRESENCE] IN URINE SEDIMENT BY LIGHT MICROSCOPY NEGATIVE mg/dL 02/07 Specimen Type: URINE Comment: If Glucose = >500 and Ketones are positive, please alert the Physician. Ordering Provider: LATRICIA WOOD Report Released Date/Time: February 06, 2024 07:32 PM Reporting Lab: [facility] [place] [facility] [address] [facility] [address] Performing Lab: [facility] [place] [facility] [address] [facility] [address] [facility] [place] [facility] URINALYS IS CLEAN CATCH PROTEIN [MASS/VOLU ME] IN URINE BY TEST STRIP NEGATIVE mg/dL 02/07 Specimen Type: URINE Comment: If Glucose = >500 and Ketones are positive, please alert the Physician. Ordering Provider: LATRICIA WOOD Report Released Date/Time: February 06, 2024 07:32 PM Reporting Lab: [facility] [place] [facility] [address] [facility] [address] Performing Lab: [facility] [place] [facility] [address] [facility] [address] [facility] [place] [facility] URINALYS IS CLEAN CATCH NITRITE [PRESENCE] IN URINE NEGATIVE mg/dL 02/07 Specimen Type: URINE Comment: If Glucose = >500 and Ketones are positive, please alert the Physician. Ordering Provider: LATRICIA WOOD Report Released Date/Time: February 06, 2024 07:32 PM Reporting Lab: [facility] [place] [facility] [address] [facility] [address] Performing Lab: [facility] [place] [facility] [address] [facility] [address] [facility] [place] [facility] URINALYS IS CLEAN CATCH BILIRUBIN. TOTAL [PRESENCE] IN URINE NEGATIVE mg/dL 02/07 Specimen Type: URINE Comment: If Glucose = >500 and Ketones are positive, please alert the Physician. Ordering Provider: LATRICIA WOOD Report Released Date/Time: February 06, 2024 07:32 PM Reporting Lab: [facility] [place] [facility] [address] [facility] [address] Performing Lab: [facility] [place] [facility] [address] [facility] [address] [facility] [place] [facility] URINALYS IS CLEAN CATCH SPECIFIC GRAVITY OF URINE BY REFRACTOME TRY 1.018 1.016 - 1.022 02/07 Specimen Type: URINE Comment: If Glucose = >500 and Ketones are positive, please alert the Physician. Ordering Provider: LATRICIA WOOD Report Released Date/Time: February 06, 2024 07:32 PM Reporting Lab: [facility] [place] [facility] [address] [facility] [address] Performing Lab: [facility] [place] [address] [address] [facility] [place] [facility] URINALYS IS CLEAN CATCH PH OF URINE BY TEST STRIP 6.0 5.0 - 9.0 02/07 Specimen Type: URINE Comment: If Glucose = >500 and Ketones are positive, please alert the Physician. Ordering Provider: LATRICIA WOOD Report Released Date/Time: February 06, 2024 07:32 PM Reporting Lab: [facility] [place] [facility] [address] [facility] [address] Performing Lab: [facility] [place] [facility] [address] [facility] [address] [facility] [place] [facility] URINALYS IS CLEAN CATCH UROBILINOG EN [MASS/VOLU ME] IN URINE BY TEST STRIP <2.0mg/d L <2.0 - 2.0 02/07 Specimen Type: URINE Comment: If Glucose = >500 and Ketones are positive, please alert the Physician. Ordering Provider: LATRICIA WOOD Report Released Date/Time: February 06, 2024 07:32 PM Reporting Lab: [facility] [place] [facility] [address] [facility] [address] Performing Lab: [facility] [place] [facility] [address] [facility] [address] [facility] [place] [facility] URINALYS IS CLEAN CATCH LEUKOCYTE ESTERASE [PRESENCE] IN URINE BY TEST STRIP NEGATIVE 02/07 Specimen Type: URINE Comment: If Glucose = >500 and Ketones are positive, please alert the Physician. Ordering Provider: LATRICIA WOOD Report Released Date/Time: February 06, 2024 07:32 PM Reporting Lab: [facility] [address] [facility] [address] Performing Lab: [facility] [place] [place] [facility] [address] [facility] [address] [facility] Encounters Combined list of: 1) Encounters from Department of [facility] Affairs facilities going backup to the last 18 months, not all [place] inpatient encounters are included; 2) Encounters from the Department of [facility] facilities going backup to 280 months. Location Location Details Encounter Type Encounter Number Reason For Visit Attending Provider ADM Date DC Date Status Disposition Source [facility] CPTR OPHTH DX IMG POST SEGMT [id number] Diagnos is: ICD-10- CM H40.013 Open angle with borderl ine finding s, low risk, bilater al HAILEY LOWRYE 12/22 [facility] [place] [place] [facility] COMPRE OPH EXAM EST PT 1/> [id number] Diagnos is: ICD-10- CM E11.9 Type 2 diabete s mellitu s without complic ations HAILEY LOWRYE 12/22 [facility] [place] [facility] FIT SPECTACLES MONOFOCAL [id number] Diagnos is: ICD-10- CM Z46.0 Encount er for fit/adj st of spectac les and contact lenses HAILEY LOWRYE 12/22 [facility] [place] [facility] OFFICE O/P EST LOW 20 MIN [id number] Diagnos is: ICD-10- CM E11.9 Type 2 diabete s mellitu s without complic ations MARINA WOOD RD 02/13 [place] [facility] [place] [facility] [place] [facility] Outpatient Encounter [id number] 02/17 [facility] [place] [facility] [place] [facility] Outpatient Encounter [id number] 02/22 [place] [facility] Social History Combined list of available smoking, tobacco, and other social history from 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 Social History Type Response Date Comment Source [facility]20[facility] [place] [facility] History of tobacco use ME-TOBACCO FORMER USER 02/14/2024 [facility] [place] [facility] History of tobacco use ME-TOBACCO FORMER USER 02/12/2023 [facility] [place] [facility] History of tobacco use ME-TOBACCO FORMER USER 02/13/2022 [facility] [place] [facility] History of tobacco use ME-TOBACCO FORMER USER 02/11/2021 [facility] [facility] History of tobacco use ME-TOBACCO FORMER USER 12/22/2019 [facility] [facility] of [facility] [place] [place] [facility] History of tobacco use LIFETIME NON-TOBACCO USER 02/17/2018 [facility] [place] [facility] History of tobacco use QUIT TOBACCO USE > 7 YEARS AGO 03/02/2016 PT STATES HE STOPEED 20 YRS AGO. [facility] [place] [facility] History of tobacco use QUIT TOBACCO USE > 7 YEARS AGO 04/18/2010 [facility] [place] [facility] Plan of Care List of future care activities from Department of 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 Additional future care activities may be listed in the Assessment and Plan section. Date/Time Care Activity Care Activity Detail Facili ty 05/17/2025 AMBULATORY - MEDICINE AMBULATORY - MEDICI NE [facility] [place] [facility] Advance Directives List of completed, amended, or rescinded Advance Directives on record at Department of [facility] facilities. An actual copy of the Directive is not included. Date Advance Directive Provider Source 02/18/2024 ADVANCE DIRECTIVE ALECIA WOOD [facility] WSTRGretta [facility]ITALFANNY[facility]
[2025-03-19 14:35] VITALS: BP 130/78; PULSE 106; RESP 18; TEMP 36.3; O2SAT 95; BMI 37.9
--- NOTE | 2025-03-19 14:35 | A.OFFVIS_ITS ---
Intake Vital Signs 03/19/25 14:35 Height 5 ft 9 in Weight 256 lb 8 oz BMI 37.9 BP 130/78 Blood Pressure Location Lt brachial Position Sitting Respiration 18 Pulse 106 H Pulse Source Pulse Oximeter Temp 97.3 F Temp Source Temporal Artery Scan Pulse Oximetry (%) 95 Oxygen Delivery Method Room Air Intake Visit Reasons: SAWV Accompanied by: Spouse Allergies terbinafine (From LAMISIL) Adverse Reaction (Intermediate, Verified 03/19/25 14:50) GI UPSET Lamisil Allergy (Unknown, Uncoded 03/19/25 14:50) Stomach Upset Medication List - Last Reconciled 03/19/25 by April Joe PA-C cholecalciferol (vitamin D3) (Vitamin D3) 50 mcg PO DAILY [CPAP ] cyclobenzaprine 10 mg PO TID PRN enoxaparin 40 mg (0.4 mL) subcut DAILY 40 days fluticasone propionate 50 mcg/actuation (Flonase Allergy Relief) 2 sprays intranasal DAILY gabapentin 600 mg PO BEDTIME glucosamine HCl 1,500 mg PO BID guaifenesin ER (Mucinex) 600 mg PO BID lactulose 20 grams PO BID PRN lisinopril 5 mg PO DAILY Held on 02/11/25. Instructions: 1 week and monitor Blood pressure if needed metformin 500 mg PO DAILY zkfujtbprnxb-fusniimk-ewxbdp (Multivitamin 50 Plus tablet) 1 tab PO DAILY mupirocin 2% 1 appl topical BID PRN aftretqt-cycznxpkoLt-wjnlytrzF 3.5-400-5,000 kf-znku-dioz (Neosporin(fhy-pgs-eswho)) 1 appl topical QID PRN semaglutide (Ozempic) 2 mg (0.75 mL) subcut QWEEK simvastatin 40 mg PO BEDTIME trazodone 100 mg PO BEDTIME 90 days HPI SAWV HPI Details 74-year-old morbidly obese male with pas t medical history of controlled diabetes mellitus, hypertension, hypercholesterolemia and asthma last seen 11/[address] Romano coming in for annual wellness. In review of the notes, patient underwent left hip hemiarthroplasty 02/06/[address] Barreto was seen postoperatively 02/23/2025 doing well advised to weightbear as tolerated and continue with physical therapy. Presenting for an annual wellness visit and management of chronic conditions. The patient experienced a hip fracture, which has limited his mobility and ability to undergo a full physical examination. The patient's diabetes is well- controlled with an A1c of 5.1. He is currently on Ozempic and metformin, with plans to discontinue metformin due to effective weight loss and glycemic control. The patient's blood pressure is well-controlled, and he is currently not on lisinopril due to previous kidney concerns post-surgery. [facility] 02/2025 Colonoscopy: up-to-date February 2018 10 years. [facility] Medical History Lung nodule SOB (shortness of breath) on exertion Impacted cerumen of both ears Aortic dilatation Cholelithiasis Obstructive sleep apnea Erectile dysfunction Hypercholesterolemia Peripheral neuropathy Asthma Type 2 diabetes mellitus with hyperglycemia Chronic low back pain Hypertension Surgical History S/P ORIF (open reduction internal fixation) fracture History of left knee replacement History of total right knee replacement History of right hip replacement History of pericardiectomy H/O lumbar discectomy Family History Mother Mental health disorder Social History Household Members: Spouse Housing: House Do you presently have visiting nurse or other home services: No Alcohol intake: current Alcohol intake frequency: holidays/special occasions only Comment: COUNTS CORRECT Patient Tobacco Use Status: Former Tobacco user Tobacco use type: Cigarette Years Smoked: stopped 1994 e-Cigarette/Vaping Use: Never Used Second Hand Smoke Exposure: Yes Advance Directives Date on File: 12/26/21 service: Yes Current occupational status: retired Cognitive needs: No Hearing needs: Yes Vision needs: Yes Questionnaire Medicare Wellness Checkup [age] What gender do you identify with?: male During the past 4 weeks, how much have you been bothered by emotional problems such as feeling anxious, depressed, irritable, sad or downhearted, and blue?: not at all During the past 4 weeks, has your physical & emotional health limited your social activities with family, friends, neighbors, or groups?: not at all During the past 4 weeks, how much bodily pain have you generally had?: moderate pain During the past 4 weeks, was someone available to help you if you needed & wanted help?: yes, as much as I wanted During the past 4 weeks, what was the hardest physical activity you could do for at least 2 minutes?: light Can you get to places out of walking distance without help? (For eg., can you travel alone on buses, taxis or drive your car?): No Can you go shopping for groceries or clothes without someone's help?: No Can you prepare your own meals?: Yes Can you do your housework without help?: No Because of any health problems, do you need the help of another person with your personal care needs such as eating, bathing, dressing or getting around the house?: No Can you handle your own money without help?: Yes During the past 4 weeks, how would you rate your health in general?: fair During the past 4 weeks how have things been going for you?: good & bad parts about equal Are you having difficulties driving your car?: sometimes Do you always fasten your seat belt when you are in a car?: yes, usually During past 4 weeks, have you been bothered by the following: never: Falling or dizzy when standing up, Trouble eating well?, Teeth or denture problems?, Problems using the telephone? and Tiredness or fatigue? Have you fallen 2 or more times in the past year?: Yes Are you afraid of falling?: Yes Are you a smoker?: no During the past 4 weeks, how many drinks of wine, beer, or other alcoholic beverages did you have?: no alcohol at all Do you exercise for about 20 minutes 3 or more times a week?: yes, all the time Have you been given information to help with the following?: yes: Hazards in your house that might hurt you? and yes: Keeping track of your medications? How often do you have trouble taking medicines the way you have been told to take them?: I always take medicine as prescribed How confident are you that you can control & manage most of your health problems?: very confident What is your race?: White PHQ-9 Over the last 2 weeks, how often have you been bothered by any of the following problems? 1. Little interest or pleasure in doing things: not at all 2. Feeling down, depressed, or hopeless: not at all 3. Trouble falling or staying asleep, or sleeping too much: not at all 4. Feeling tired or having little energy: not at all 5. Poor appetite or overeating: not at all 6. Feeling bad about yourself - or that you are a failure or have let yourself or your family down: not at all 7. Trouble concentrating on things, such as reading the newspaper or watching television: not at all 8. Moving or speaking so slowly that other people could have noticed. Or the opposite - being so fidgety or restless that you have been moving around a lot more than usual: not at all 9. Thoughts that you would be better off or of hurting yourself in some way: not at all Total score: 0 Depression Screening Interpretation: Negative Depression Screening Done: Yes 17777 - PHQ-9 Billing: Yes Source: Developed by Drs. Mac Echeverria, Supriya Weston, Kyle Moon and colleagues, with an educational teofilo from [employer]. Review of Systems Const Denies body aches, Denies fatigue, Denies fever(s), Reports frequent falls, Denies headache(s) and Denies weakness Eyes Reports no additional complaints and Denies change in vision ENT Denies dysphagia, Denies dizziness, Denies facial pain, Denies headache(s), Reports nasal congestion (occasional ) and Denies odynophagia Card Denies chest pain, Denies syncope, Denies irregular heart rhythm, Denies leg edema, Denies lightheadedness and Denies dyspnea Resp Denies cough and Denies dyspnea GI Denies abdominal pain, Denies constipation, Denies dysphagia, Denies dyspepsia, Denies diarrhea, Denies nausea, Denies odynophagia and Denies vomiting Denies dysuria, Denies urinary frequency, Denies urinary hesitancy and Denies urinary urgency Musc Denies back pain and Denies myalgias Skin/Breast Reports system reviewed and no additional complaints, except as documented Neuro Denies dizziness, Denies syncope, Reports frequent falls, Denies headache(s) and Denies weakness Psych Reports no additional complaints Endo Denies fatigue Physical Exam Vital Signs: Last Vital Signs Temp 97.3 F 03/19/25 14:35 Pulse 106 H 03/19/25 14:35 Resp 18 03/19/25 14:35 BP 130/78 03/19/25 14:35 Pulse Ox 95 03/19/25 14:35 Oxygen Delivery Method Room Air 03/19/25 14:35 BMI result Body Mass Index 37.9 Const General: cooperative, healthy appearing, comfortable and no acute distress Orientation/consciousness: patient oriented x3 HEENT Head: Yes normocephalic Ears: hearing grossly normal bilaterally, external ears normal, TM's normal bilaterally and EAC's normal General nose exam: Normal external nose present Face and sinus: Yes normal facial exam and Yes sinuses nontender Mouth: Normal oral and palatal mucosa present and tongue normal Throat: Yes posterior oropharynx normal Eyes General: appearance normal, both eyes and all related structures Conjunctivae: conjunctivae normal Pupils: Equal, round and reactive pupils present EOM: EOMs intact bilaterally and No Nystagmus present Neck Neck: Yes normal visual inspection, Yes full ROM and Yes no lymphadenopathy Chest Chest palpation & inspection: normal inspection of the chest Resp Effort & Inspection: normal respiratory effort Auscultation: clear to auscultation bilaterally, no crackles, no rales, no rhonchi, no wheezes and breath sounds present Cardio Rate: regular rate Rhythm: regular rhythm Peripheral pulses: radial pulses present and dorsalis pedis present GI Inspection: Yes normal to inspection and No Abdominal wall edema Palpation (GI): Soft to palpation, not firm and nontender Auscultation: normal bowel sounds Rectal Exam - Male: Yes deferred General: Yes no CVA tenderness Back/Spine/Pelvis Back: no CVA tenderness Skin General skin exam: no rashes or lesions noted Neuro General: patient oriented x3 Cranial nerves: Yes Equal, round and reactive pupils present, Yes Midline tongue present, Yes Ability to bilaterally elevate shoulders present and No Nystagmus present Gait exam (Neuro): Normal gait present Extrem General: Yes normal to inspection, Yes full ROM, No no pedal edema and No edema Psych Speech and movement: Normal speech and movement present Affect: normal affect Insight: Good insight present (Psych) Judgement: Good judgement present (Psych) Assessment & Plan Assessment & Plan (1) Encounter for subsequent annual wellness visit (AWV) in Medicare patient: Code(s): Z00.00 - Encounter for general adult medical examination without abnormal findings Plan: Patient has good cognition is able to make informed decisions about his health. [place] of care was reviewed with patient patient was provided with a written screening schedule. Healthcare proxy/ MOLST forms were reviewed with patient he has completed these in the past and have scan them into the chart. Blood work is up-to-date and has been reviewed with the patient today. He is up-to-date on all recommended routine screenings and vaccinations for his age. (2) Hypertension: Code(s): I10 - Essential (primary) hypertension Qualifiers: Hypertension type: essential hypertension Qualified Code(s): I10 - Essential (primary) hypertension Plan: Continue on current blood pressure medication. Avoid salt intake and encourage healthy diet and regular exercise. (3) Hypercholesterolemia: Code(s): E78.00 - Pure hypercholesterolemia, unspecified Plan: Avoid foods that are high in cholesterol such as red meat, fried foods, eggs and baked goods. Triglyceride goal of less than 150 and LDL goal of less than 100. Continue on simvastatin 40 (4) Type 2 diabetes mellitus with hyperglycemia: Comment: [place] 06/2022 Code(s): E11.65 - Type 2 diabetes mellitus with hyperglycemia Qualifiers: Diabetes mellitus longterm insulin use: without longterm use Qualified Code(s): E11.65 - Type 2 diabetes mellitus with hyperglycemia Plan: Decrease the amount of carbohydrates such as pasta, bread, rice, and potatoes and limit the amount of sweets. Although fruits are generally healthy they should be eaten in moderation as they are still high in sugar. Hemoglobin A1c goal of less than 7%. Currently on metformin 500 mg daily and Ozempic 2 mg weekly. Plan to discontinue metformin at this time due to A1c of 5.1%. Repeat in 3 months. (5) Morbid obesity: Code(s): E66.01 - Morbid (severe) obesity due to excess calories Plan: Healthy diet and regular exercise is encouraged. Of note, Lost 14 lbs since last visit. Continue with Ozempic (6) Status post hemiarthroplasty of left hip: Code(s): Z96.642 - Presence of left artificial hip joint Plan: [place] [facility] [place]. Has been doing well postoperatively and he plans to continue to follow with physical therapy and orthopedics. (7) Asthma: Code(s): J45.909 - Unspecified asthma, uncomplicated Qualifiers: Asthma complication type: uncomplicated Asthma persistence: intermittent Asthma severity: mild Qualified Code(s): J45.20 - Mild intermittent asthma, uncomplicated Plan: Asthma currently controlled without the use of medications. Avoid triggers such as allergies. (8) Obstructive sleep apnea: Comment: September 2021 uses the CPAP every night an benefits from this Code(s): G47.33 - Obstructive sleep apnea (adult) (pediatric) Plan: Uses CPAP faithfully at least 4 hours a night and benefits from this therapy. (9) Cerumen impaction: Code(s): H61.20 - Impacted cerumen, unspecified ear Plan: Patient having bilateral cerumen impaction recommended use of Debrox drops in returning to the office for complete ear cleaning. Plan The patient will continue with Ozempic for diabetes management, given the excellent control of A1c at 5.1, and metformin will be discontinued due to effective weight loss and glycemic control. The patient's blood pressure is well-controlled, and lisinopril remains on hold due to previous kidney concerns post-surgery. The patient is advised to maintain hydration to prevent dehydration-related kidney stress. For hyperlipidemia, the patient's cholesterol levels are well-managed, and no changes to the current regimen are necessary. The patient is scheduled for a follow-up in May to reassess diabetes management and ear care, including ear flushing. The patient is advised to use ear softening drops prior to the appointment to facilitate the procedure. The patient is advised to maintain regular follow-ups with specialists as needed, including the land clearer and eye doctor. This note was constructed using voice recognition software. While every effort has been made to ensure accuracy and brake holder, still areas may have been included sometimes these areas may affect the content or meeting of the given symptoms. Total time spent caring for the patient today was 30 minutes. This includes time spent before the visit reviewing the chart, time spent during the visit, and time spent after the visit and documentation. Patient was informed and verbally consented to the use of an ambient scribe for clinic note documentation during this visit. Quality Reporting (2019) Depression/Bipolar (159/160/161/177) PHQ-9: Total score: 0 Coding Level of Care Code Medicare Subsequent (G0439) Diagnoses Encounter for subsequent annual wellness visit (AWV) in Medicare patient Z00.00 Essential hypertension I10 Hypertension type: essential hypertension Hypercholesterolemia E78.00 Type 2 diabetes mellitus with hyperglycemia, without long-term current use of insulin E11.65 Diabetes mellitus longterm insulin use: without intermediate accountant use Morbid obesity E66.01 Status post hemiarthroplasty of left hip Z96.642 Mild intermittent asthma without complication J45.20 Asthma complication type: uncomplicated Asthma persistence: intermittent Asthma severity: mild Obstructive sleep apnea G47.33 Cerumen impaction H61.20 CPT Codes Advance Care Planning - Advance Care Planning discussion: On file, no changes ([id number]) Advance Care Planning - Time spent: 1-15 minutes, on File ([id number]) Additional Codes PHQ-9 - 50381 - PHQ-9 Billing: Yes ([id number]) Advance Care Planning Advance Care Planning discussion: On file, no changes Date of discussion: 03/19/25 Who was present: patient, spouse, provider Time spent: 1-15 minutes, on File Did not discuss due to Cultural/Spiritual beliefs: No
--- OUTSIDE RECORDS SUMMARY | 2025-03-19 15:03 | XMS_ITS | Patient Health Record ---
Author Organization [facility] Address [address] [place] [id number] Care Team Providers Care Collection Support Specialist Name Role Phone Daniel Romano MD Primary Care Provider Mac Rose [phone] Allergies Allergen (clinical drug ingredient) Drug/Non Drug [...] Problem Status W/U Status Risk Notes Problem [id number] Encounter for screening for malignant neoplasm of colon (Z12.11) Active confirmed Problem [id number] Aspirin long-term use (Z79.82) Active confirmed Problem [id number] Hypertension, unspecified type (I10) Active confirmed Plan Of Treatment Future Test Test Name Order Date COLONOSCOPY 12/30/2017 Insurance Providers Payer Name Payer Address Payer Phone Subscriber Number Group Number Insured Name Patient Relationship to Insured Coverage Start Date Coverage End Date MEDICARE OF [place] [address] [place] [address] [id number] VEE SAL Self - patient is the insured MEDICAID OF [facility] [address] [place] [address] [id number] VEE SAL Self - patient is the insured Medical (General) History Medical History History ICD Code Denies AR,CVA,renal disease COPD NIDDM Neuropathy in feet Sleep apnea--uses CPAP Negative colonoscopies in 31 12 and 2006 other than diverticulosis and internal hemorrhoids Surgical History Surgery Date(Month/Year) Left knee replacement 2015 Right knee replacement 2014 Right hip replacement 2013 Metal plates due to femur surgery 2016 Pericarditis with pericardectomy in the Rectal fistula Lumbar disc
== END 2025-03-19 15:22 | disposition home or self-care (01) ==
LOC: HO.HMCH 14:30
PROVIDERS: PCP Internal Medicine
DX: Z00.00 Encounter for general adult medical examination without abnormal findings (principal); E11.65 Type 2 diabetes mellitus with hyperglycemia; E66.01 Morbid (severe) obesity due to excess calories; Z68.37 Body mass index [BMI] 37.0-37.9, adult; I10 Essential (primary) hypertension; E78.00 Pure hypercholesterolemia, unspecified; Z96.642 Presence of left artificial hip joint; J45.20 Mild intermittent asthma, uncomplicated; G47.33 Obstructive sleep apnea (adult) (pediatric); H61.23 Impacted cerumen, bilateral

== ENCOUNTER → 2025-03-19 14:30 | Outpatient (BNVA) | payer MEDICARE, SELFPAY | PROVIDERS: PCP Internal Medicine | DX: Z00.00 Encounter for general adult medical examination without abnormal findings (principal); I10 Essential (primary) hypertension; E78.00 Pure hypercholesterolemia, unspecified; E11.65 Type 2 diabetes mellitus with hyperglycemia; E66.01 Morbid (severe) obesity due to excess calories; J45.20 Mild intermittent asthma, uncomplicated; G47.33 Obstructive sleep apnea (adult) (pediatric); H61.23 Impacted cerumen, bilateral; Z96.642 Presence of left artificial hip joint | CPT/HCPCS: 96127 ==

== ENCOUNTER 2025-03-20 09:59 | Outpatient (REF) | payer MEDICARE, SELFPAY ==
--- OUTSIDE RECORDS SUMMARY | 2024-10-19 05:15 | XMS_ITS ---
Author Organization [facility] [place] Address [address] [place] [address] Care Team Providers Care Benefit Specialist Name Role Phone Daniel Romano Primary Care Provider Chantel Smith Unavailable [phone] Allergies Allergen (clinical drug ingredient) Drug/Non Drug [...] Active Encounters Encounter Location Date Provider Diagnosis [facility] [address] [address] 10/19/2024 Chantel Infante Plan Of Treatment Next Appt Details Provider Name:Chantel Askew allison, 03/28/2025 03:15:00 PM, [address] [place] [address], [address], Progress Notes * Festus MUNOZDOB:1950 ( 74 yo M)Acc No.[id number]:10/19/2024 Progress Note Patient: Festus BARRIENTOS Provider: Rosemary Infante DPM :1950 A ge:74 Y S ex:Male Date:10/19/2024 Address:[address] [place] [address], [place] Pcp:Daniel Romano Subjective: * Chief Complaints: * [...] 10/19/2024 Generated for Lorrie schaefer/Tequila/Barbara on: 0 03/21/2025 10:41 AM EDT
--- OUTSIDE RECORDS SUMMARY | 2025-02-23 03:14 | XMS_ITS | Continuity of Care Document ---
Author Name [facility] Organization [facility] Care Team Providers Care Lease Examiner Name Role Phone [facility] Unavailable Unavailable Problems Combined list of problems from 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 It does not include entries that were removed or entered in error. Problem Status Onset Date Problem Type Date of Resolution Comments Source Hypercholesterolemia Active 019 Condition Feb 14, 2019 Entered By: ALECIA WOOD Comment: treated with medication [facility] Impaired fasting glycaemia (SNOMED [place] [id number]) Active 014 Condition [facility]remor Active 010 Condition [facility] Disc Disease Active 009 Condition [facility] Diabetes Mellitus Type 2 ([facility] [id number]) Active Condition [facility] [...] NEEDED FOR DRY EYE OPHTHA LMIC 12/23/2024 [id number] Rocky LOWRY 2023 15 [facility] METFORMIN HCL TAB,ORAL TAKE BY MOUTH TWICE DAILY ORAL ACTIVE Rocky LOWRY 2018 [facility] SIMVASTATIN 20MG TAB TAKE ONE-HALF TABLET BY MOUTH AT BEDTIME ORAL ACTIVE JOSH WOOD 2023 [facility] Immunizations Combined list of available immunizations from the 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 Immunization Series Date Given Administered By Site Reaction Lot Number CVX Code Drug Executive Associate Status Comments Source INFLUENZA, UNSPECIFIED FORMULATION 2021 88 complet ed HISTORICA L INFORMATI ON - FROM PATIENT'S RECALL, [facility] COVID-19 (PFIZER), MRNA, LNP-S, PF, 30 MCG/0.3 ML DOSE 3 2020 208 complet ed HISTORICA L INFORMATI ON - FROM PATIENT'S WRITTEN RECORD, [facility] COVID-19 (PFIZER), MRNA, LNP-S, PF, 30 MCG/0.3 ML DOSE 2 2020 208 complet ed HISTORICA L INFORMATI ON - FROM PATIENT'S WRITTEN RECORD, Lot#: [id number] [facility] COVID-19 (PFIZER), MRNA, LNP-S, PF, 30 MCG/0.3 ML DOSE 1 2020 208 complet ed HISTORICA L INFORMATI ON - FROM PATIENT'S WRITTEN RECORD, Lot#: [id number] [facility] INFLUENZA, UNSPECIFIED FORMULATION 2019 88 complet ed [facility] INFLUENZA, SEASONAL, INJECTABLE 2018 141 complet ed [facility] INFLUENZA, SEASONAL, INJECTABLE 2016 141 complet ed [facility] FLU,3 YRS (HISTORICAL) 2015 88 complet ed [facility] FLU[facility]3 YRS (HISTORICAL) 2014 88 [...] PM Reporting Lab: [facility] [address] [address] Performing Lab: [facility] [address] [facility] [address] [facility] LIVER FUNCTION ALBUMIN [MASS/VOLU ME] IN SERUM OR PLASMA 3.7 g/dL 3.5 - 5.0 02/07 Specimen Type: SERUM No comment entered. Ordering Provider: LATRICIA WOOD Report Released Date/Time: February 06, 2024 07:32 PM Reporting Lab: [facility] [address] [facility] [address] Performing Lab: [facility] [facility] [address] [facility] [address] [facility] LIVER FUNCTION ALKALINE PHOSPHATAS E [ENZYMATIC ACTIVITY/V OLUME] IN SERUM OR PLASMA 41 U/L 40 - 150 02/07 Specimen Type: SERUM No comment entered. Ordering Provider: LATRICIA WOOD Report Released Date/Time: February 06, 2024 07:32 PM Reporting Lab: [facility] [address] [facility] [address] Performing Lab: [facility] [facility] [address] [facility] [address] [facility] LIVER FUNCTION ASPARTATE AMINOTRANS FERASE [ENZYMATIC ACTIVITY/V OLUME] IN SERUM OR PLASMA 18 U/L 5 - 34 02/07 Specimen Type: SERUM No comment entered. Ordering Provider: LATRICIA WOOD Report Released Date/Time: February 06, 2024 07:32 PM Reporting Lab: [facility] [address] [facility] [address] Performing Lab: [facility] [address] [facility] [address] [facility] LIVER FUNCTION ALANINE AMINOTRANS FERASE [ENZYMATIC ACTIVITY/V OLUME] IN SERUM OR PLASMA 21 U/L 02/07 Specimen Type: SERUM No comment entered. Ordering Provider: LATRICIA WODO Report Released Date/Time: February 06, 2024 07:32 PM Reporting Lab: [facility] [facility] [address] [facility] [address] Performing Lab: [facility] [place] [facility] [address] [facility] [address] [facility] LIVER FUNCTION BILIRUBIN. TOTAL [MASS/VOLU ME] IN SERUM OR PLASMA 0.8 mg/dL 0.2 - 1.2 02/07 Specimen Type: SERUM No comment entered. Ordering Provider: LATRICIA WOOD Report Released Date/Time: February 06, 2024 07:32 PM Reporting Lab: [facility] [place] [facility] [address] [facility] [address] Performing Lab[facility] [address] [facility] [address] [facility] BASIC METABOLI C PANEL (fasting ) UREA NITROGEN [MASS/VOLU ME] IN SERUM OR PLASMA 14 mg/dL 7 - 25 02/07 Specimen Type: SERUM No comment entered. Ordering Provider: LATRICIA WOOD Report Released Date/Time: February 06, 2024 07:32 PM Reporting Lab: [facility] [place] [facility] [address] [facility] [address] Performing Lab: [facility] [place] [facility] [address] [facility] [address] [facility] BASIC METABOLI C PANEL (fasting ) GLUCOSE [MASS/VOLU ME] IN SERUM OR PLASMA 126 mg/dL 65 - 100 02/07 H Specimen Type: SERUM No comment entered. Ordering Provider: LATRICIA WOOD Report Released Date/Time: February 06, 2024 07:32 PM Reporting Lab: [facility] [place] [facility] [address] [facility] [address] Performing Lab: [facility] [place] [facility] [address] [facility] [address] [facility] BASIC METABOLI C PANEL (fasting ) SODIUM [MOLES/VOL UME] IN SERUM OR PLASMA 140 mmol/L 135 - 145 02/07 Specimen Type: SERUM No comment entered. Ordering Provider: LATRICIA WOOD Report Released Date/Time: February 06, 2024 07:32 PM Reporting Lab: [facility] [address] [address] Performing Lab[facility] [place] [facility] [address] [facility] [address] [facility] BASIC METABOLI C PANEL (fasting ) POTASSIUM [MOLES/VOL UME] IN SERUM OR PLASMA 4.9 mmol/L 3.5 - 5.0 02/07 Specimen Type: SERUM No comment entered. Ordering Provider: LATRICIA WOOD Report Released Date/Time: February 06, 2024 07:32 PM Reporting Lab: [facility] [place] [address] [address] Performing Lab: [facility] [place] [address] [address] [facility] [place] [facility] BASIC METABOLI C PANEL (fasting ) CHLORIDE [MOLES/VOL UME] IN SERUM OR PLASMA 105 mmol/L 100 - 110 02/07 Specimen Type: SERUM No comment entered. Ordering Provider: LATRICIA WOOD Report Released Date/Time: February 06, 2024 07:32 PM Reporting Lab: [facility] [place] [address] [address] Performing Lab: [facility] [place] [address] [address] [facility] BASIC METABOLI C PANEL (fasting ) CARBON DIOXIDE, TOTAL [MOLES/VOL UME] IN SERUM OR PLASMA 25 meq/L 20 - 30 02/07 Specimen Type: SERUM No comment entered. Ordering Provider: LATRICIA WOOD Report Released Date/Time: February 06, 2024 07:32 PM Reporting Lab: [facility] [address] [address] Performing Lab: [facility] [place] [address] [address] [facility] BASIC METABOLI C PANEL (fasting ) CREATININE [MASS/VOLU ME] IN SERUM OR PLASMA 1.10 mg/dL 0.50 - 1.40 02/07 Specimen Type: SERUM No comment entered. Ordering Provider: LATRICIA WOOD Report Released Date/Time: February 06, 2024 07:32 PM Reporting Lab: [facility] [place] [address] [address] Performing Lab: [facility] [address] [address] [facility] [place] [facility] BASIC METABOLI C PANEL (fasting ) GLOMERULAR FILTRATION RATE/1.73 SQ M.PREDICTE D [VOLUME RATE/AREA] IN SERUM, PLASMA OR BLOOD BY CREATININE -BASED FORMULA (CKD-EPI 2020) 70 mL/min 60 02/07 Specimen Type: SERUM No comment entered. Ordering Provider: LATRICIA WOOD Report Released Date/Time: February 06, 2024 07:32 PM Reporting Lab: [facility] [place] [address] Performing Lab: [facility] [place] [address] [address] [facility] CBC AND DIFF (AUTO) LEUKOCYTES [#/VOLUME] IN BLOOD BY AUTOMATED COUNT 6.68 10*3/uL 4.50 - 11.00 02/07 Specimen Type: BLOOD No comment entered. Ordering Provider: LATRICIA WOOD Report Released Date/Time: February 06, 2024 07:32 PM Reporting Lab: [facility] [place] [address] [address] Performing Lab: [facility] [address] [address] [facility] CBC AND DIFF (AUTO) ERYTHROCYT ES [#/VOLUME] IN BLOOD BY AUTOMATED COUNT 4.23 10*6/uL 4.23 - 5.66 02/07 Specimen Type: BLOOD No comment entered. Ordering Provider: LATRICIA WOOD Report Released Date/Time: February 06, 2024 07:32 PM Reporting Lab: [facility] [place] [facility] [address] [facility] [address] Performing Lab: [facility] [address] [facility] [address] [facility] CBC AND DIFF (AUTO) HEMOGLOBIN [MASS/VOLU ME] IN BLOOD 13.7 g/dL 12.8 - 17 02/07 Specimen Type: BLOOD No comment entered. Ordering Provider: LATRICIA WOOD Report Released Date/Time: February 06, 2024 07:32 PM Reporting Lab: [facility] [place] [facility] [address] [facility] [address] Performing Lab: [facility] [place] [facility] [address] [facility] [address] [facility] [place] [facility] CBC AND DIFF (AUTO) HEMATOCRIT [VOLUME FRACTION] OF BLOOD BY AUTOMATED COUNT 40.4 39.2 - 50.4 02/07 Specimen Type: BLOOD No comment entered. Ordering Provider: LATRICIA WOOD Report Released Date/Time: February 06, 2024 07:32 PM Reporting Lab: [facility] [place] [facility] [address] [facility] [address] Performing Lab: [facility] [place] [facility] [address] [facility] [address] [facility] CBC AND DIFF (AUTO) MCV [ENTITIC VOLUME] BY AUTOMATED COUNT 95.5 fL 82 - 99 02/07 Specimen Type: BLOOD No comment entered. Ordering Provider: LATRICIA WOOD Report Released Date/Time: February 06, 2024 07:32 PM Reporting Lab: [facility] [place] [facility] [address] [facility] [address] Performing Lab: [facility] [place] [facility] [address] [facility] [address] [facility] [place] CBC AND DIFF (AUTO) MCHC [MASS/VOLU ME] BY AUTOMATED COUNT 33.9 g/dL 30.8 - 35.1 02/07 Specimen Type: BLOOD No comment entered. Ordering Provider: LATRICIA WOOD Report Released Date/Time: February 06, 2024 07:32 PM Reporting Lab: [facility] [address] [facility] [address] Performing Lab: [facility] [address] [facility] [address] [facility] CBC AND DIFF (AUTO) PLATELETS [#/VOLUME] IN BLOOD BY AUTOMATED COUNT 196 10*3/uL 140 - 360 02/07 Specimen Type: BLOOD No comment entered. Ordering Provider: LATRICIA WOOD Report Released Date/Time: February 06, 2024 07:32 PM Reporting Lab: [facility] [place] [facility] [address] [facility] [address] Performing Lab: [facility] [place] [facility] [address] [facility] [address] [facility] [place] [facility] CBC AND DIFF (AUTO) ERYTHROCYT E DISTRIBUTI ON WIDTH [RATIO] BY AUTOMATED COUNT 12.6 12.0 - 16.0 02/07 Specimen Type: BLOOD No comment entered. Ordering Provider: LATRICIA WOOD Report Released Date/Time: February 06, 2024 07:32 PM Reporting Lab: [facility] [place] [facility] [address] [facility] [address] Performing Lab: [facility] [address] [facility] [address] [facility] CBC AND DIFF (AUTO) MONOCYTES [#/VOLUME] IN BLOOD BY AUTOMATED COUNT 0.73 10*3/uL 0.30 - 1.10 02/07 Specimen Type: BLOOD No comment entered. Ordering Provider: LATRICIA WOOD Report Released Date/Time: February 06, 2024 07:32 PM Reporting Lab: [facility] [address] [facility] [address] Performing Lab: [facility] [place] [facility] [address] [facility] [address] [facility] CBC AND DIFF (AUTO) MCH [ENTITIC MASS] BY AUTOMATED COUNT 32.4 pg 26.2 - 32.6 02/07 Specimen Type: BLOOD No comment entered. Ordering Provider: LATRICIA WOOD Report Released Date/Time: February 06, 2024 07:32 PM Reporting Lab: [facility] [address] [facility] [address] Performing Lab: [facility] [address] [facility] [address] [facility] CBC AND DIFF (AUTO) NEUTROPHIL S/100 LEUKOCYTES IN BLOOD BY AUTOMATED COUNT 68.4 43.7 - 75.8 02/07 Specimen Type: BLOOD No comment entered. Ordering Provider: LATRICIA WOOD Report Released Date/Time: February 06, 2024 07:32 PM Reporting Lab: [facility] [address] [facility] [address] Performing Lab: [facility] [address] [facility] [address] [facility] CBC AND DIFF (AUTO) LYMPHOCYTE S/100 LEUKOCYTES IN BLOOD BY AUTOMATED COUNT 16.6 14.0 - 42.3 02/07 Specimen Type: BLOOD No comment entered. Ordering Provider: LATRICIA WOOD Report Released Date/Time: February 06, 2024 07:32 PM Reporting Lab: [facility] [address] [facility] [address] Performing Lab: [facility] [address] [facility] [address] [facility] CBC AND DIFF (AUTO) MONOCYTES/ 100 LEUKOCYTES IN BLOOD BY AUTOMATED COUNT 10.9 5.1 - 13.7 02/07 Specimen Type: BLOOD No comment entered. Ordering Provider: LATRICIA WOOD Report Released Date/Time: February 06, 2024 07:32 PM Reporting Lab: [facility] [address] [facility] [address] Performing Lab: [facility] [address] [facility] [address] [facility] CBC AND DIFF (AUTO) EOSINOPHIL S/100 LEUKOCYTES IN BLOOD BY AUTOMATED COUNT 3.1 0.4 - 6.8 02/07 Specimen Type: BLOOD No comment entered. Ordering Provider: LATRICIA WOOD Report Released Date/Time: February 06, 2024 07:32 PM Reporting Lab: [facility] [place] [address] [address] Performing Lab: [facility] [place] [address] [address] [facility] [place] [facility] CBC AND DIFF (AUTO) BASOPHILS/ 100 LEUKOCYTES IN BLOOD BY AUTOMATED COUNT 0.7 0.1 - 2.0 02/07 Specimen Type: BLOOD No comment entered. Ordering Provider: LATRICIA WOOD Report Released Date/Time: February 06, 2024 07:32 PM Reporting Lab: [facility] [place] [address] [address] Performing Lab: [facility] [place] [address] [address] [facility] [place] [facility] CBC AND DIFF (AUTO) NEUTROPHIL S [#/VOLUME] IN BLOOD BY AUTOMATED COUNT 4.56 10*3/uL 2.20 - 7.60 02/07 Specimen Type: BLOOD No comment entered. Ordering Provider: LATRICIA WOOD Report Released Date/Time: February 06, 2024 07:32 PM Reporting Lab: [facility] [place] [address] [address] Performing Lab: [facility] [place] [address] [address] [facility] [place] [facility] CBC AND DIFF (AUTO) LYMPHOCYTE S [#/VOLUME] IN BLOOD BY AUTOMATED COUNT 1.11 10*3/uL 1.00 - 3.20 02/07 Specimen Type: BLOOD No comment entered. Ordering Provider: LATRICIA WOOD Report Released Date/Time: February 06, 2024 07:32 PM Reporting Lab: [facility] [place] [address] [address] Performing Lab: [facility] [place] [facility] [address] [facility] [address] [facility] [place] [facility] CBC AND DIFF (AUTO) EOSINOPHIL S [#/VOLUME] IN BLOOD BY AUTOMATED COUNT 0.21 10*3/uL 0.03 - 0.44 02/07 Specimen Type: BLOOD No comment entered. Ordering Provider: LATRICIA WOOD Report Released Date/Time: February 06, 2024 07:32 PM Reporting Lab: [facility] [place] [facility] [address] [facility] [address] Per[facility] Lab: [facility] [address] [facility] [address] [facility] [place] [facility] CBC AND DIFF (AUTO) BASOPHILS [#/VOLUME] IN BLOOD BY AUTOMATED COUNT 0.05 10*3/uL 0.01 - 0.13 02/07 Specimen Type: BLOOD No comment entered. Ordering Provider: LATRICIA WOOD Report Released Date/Time: February 06, 2024 07:32 PM Reporting Lab: [facility] [place] [facility] [address] [facility] [address] Performing Lab: [facility] [place] [facility] [address] [facility] [address] [facility] [place] [facility] CBC AND DIFF (AUTO) IMMATURE GRANULOCYT ES/100 LEUKOCYTES IN BLOOD BY AUTOMATED COUNT 0.3 0.0 - 0.7 02/07 Specimen Type: BLOOD No comment entered. Ordering Provider: LATRICIA WOOD Report Released Date/Time: February 06, 2024 07:32 PM Reporting Lab: [facility] [place] [facility] [address] [facility] [address] Performing Lab: [facility] [place] [address] [address] [facility] [place] [facility] CBC AND DIFF (AUTO) IMMATURE GRANULOCYT ES [#/VOLUME] IN BLOOD 0.02 10*3/uL 0.00 - 0.06 02/07 Specimen Type: BLOOD No comment entered. Ordering Provider: LATRICIA WOOD Report Released Date/Time: February 06, 2024 07:32 PM Reporting Lab: [facility] [place] [facility] [address] [facility] [address] Performing Lab: [facility] [place] [facility] [address] [facility] [address] [facility] [place] [facility] TSH THYROTROPI N [UNITS/VOL UME] IN SERUM OR PLASMA 1.39 u[IU]/mL 0.35 - 5.00 02/07 Specimen Type: SERUM No comment entered. Ordering Provider: LATRICIA WOOD Report Released Date/Time: February 06, 2024 07:32 PM Reporting Lab: [facility] [place] [facility] [address] [facility] [address] Performing Lab: [facility] [place] [facility] [address] [facility] [address] [facility] LIPID PANEL FASTING CHOLESTERO L [MASS/VOLU ME] IN SERUM OR PLASMA 162 mg/dL 02/07 Specimen Type: SERUM No comment entered. Ordering Provider: LATRICIA WOOD Report Released Date/Time: February 06, 2024 07:32 PM Reporting Lab: [facility] [place] [facility] [address] [facility] [address] Performing Lab: [facility] [place] [facility] [address] [facility] [address] [facility] LIPID PANEL FASTING TRIGLYCERI DE [MASS/VOLU ME] IN SERUM OR PLASMA 112 mg/dL 0 - 150 02/07 Specimen Type: SERUM No comment entered. Ordering Provider: LATRICIA WOOD Report Released Date/Time: February 06, 2024 07:32 PM Reporting Lab: [facility] [place] [facility] [address] [facility] [address] Performing Lab: [facility] [place] [facility] [address] [facility] [address] [facility] [place] [facility] LIPID PANEL FASTING CHOLESTERO L IN LDL [MASS/VOLU ME] IN SERUM OR PLASMA BY CALCULATIO N 98 mg/dL 0 - 129 02/07 Specimen Type: SERUM No comment entered. Ordering Provider: LATRICIA WOOD Report Released Date/Time: February 06, 2024 07:32 PM Reporting Lab: [facility] [address] [address] Performing Lab: [facility] [address] [address] [facility] LIPID PANEL FASTING CHOLESTERO L.TOTAL/CH OLESTEROL IN HDL [MASS RATIO] IN SERUM OR PLASMA 3.9 02/07 Specimen Type: SERUM No comment entered. Ordering Provider: LATRICIA WOOD Report Released Date/Time: February 06, 2024 07:32 PM Reporting Lab: [facility] [address] [address] Performing Lab: [facility] [address] [address] [facility] LIPID PANEL FASTING CHOLESTERO L IN HDL [MASS/VOLU ME] IN SERUM OR PLASMA 42 mg/dL 40 - 60 02/07 Specimen Type: SERUM No comment entered. Ordering Provider: LATRICIA WOOD Report Released Date/Time: February 06, 2024 07:32 PM Reporting Lab: [facility] [address] [address] Performing Lab: [facility] [address] [address] [facility] HEMOGLOB IN A1C PANEL HEMOGLOBIN A1C/HEMOGL [...] PM Reporting Lab: [facility] [place] [facility] [address] [facility] [address] Performing Lab: [facility] [place] [facility] [address] [facility] [address] [facility] MICROALB UMIN CREATINI NE RATIO PANEL MICROALBUM IN/CREATIN INE [MASS RATIO] IN URINE 12.9 mg/g 0 - 29.9 02/07 Specimen Type: URINE No comment entered. Ordering Provider: LATRICIA WOOD Report Released Date/Time: February 06, 2024 07:32 PM Reporting Lab: [facility] [place] [facility] [address] [facility] [address] Performing Lab: [facility] [place] [facility] [address] [facility] [address] [facility] [place] [facility] MICROALB UMIN CREATINI NE RATIO PANEL MICROALBUM IN [MASS/VOLU ME] IN URINE 1.4 mg/dL 02/07 Specimen Type: URINE No comment entered. Ordering Provider: LATRICIA WOOD Report Released Date/Time: February 06, 2024 07:32 PM Reporting Lab: [facility] [place] [facility] [address] [facility] [address] Performing Lab: [facility] [place] [facility] [address] [facility] [address] [facility] [place] [facility] MICROALB UMIN CREATINI NE RATIO PANEL CREATININE [MASS/VOLU ME] IN URINE 108.66 mg/dL 02/07 Specimen Type: URINE No comment entered. Ordering Provider: LATRICIA WOOD Report Released Date/Time: February 06, 2024 07:32 PM Reporting Lab: [facility] [place] [facility] [address] [facility] [address] Performing Lab: [facility] [place] [facility] [address] [facility] [address] [facility] [place] [facility] URINALYS IS CLEAN CATCH COLOR OF URINE Light-Ye llow 02/07 Specimen Type: URINE Comment: If Glucose = >500 and Ketones are positive, please alert the Physician. Ordering Provider: LATRICIA WOOD Report Released Date/Time: February 06, 2024 07:32 PM Reporting Lab: [facility] [place] [facility] [address] [facility] [address] Performing Lab: [facility] [place] [facility] [address] [facility] [address] [facility] [place] [facility] URINALYS IS CLEAN CATCH APPEARANCE OF URINE Clear 02/07 Specimen Type: URINE Comment: If Glucose = >500 and Ketones are positive, please alert the Physician. Ordering Provider: LATRICIA WOOD Report Released Date/Time: February 06, 2024 07:32 PM Reporting Lab: [facility] [place] [facility] [address] [facility] [address] Performing Lab: [facility] [place] [facility] [address] [facility] [address] [facility] [place] [facility] URINALYS IS CLEAN CATCH GLUCOSE [MASS/VOLU ME] IN URINE NEGATIVE mg/dL 02/07 Specimen Type: URINE Comment: If Glucose = >500 and Ketones are positive, please alert the Physician. Ordering Provider: LATRICIA WOOD Report Released Date/Time: February 06, 2024 07:32 PM Reporting Lab: [facility] [place] [facility] [address] [facility] [address] Performing Lab: [facility] [place] [facility] [address] [facility] [address] [facility] [place] [facility] URINALYS IS CLEAN CATCH KETONES [MASS/VOLU ME] IN URINE BY TEST STRIP NEGATIVE mg/dL 02/07 Specimen Type: URINE Comment: If Glucose = >500 and Ketones are positive, please alert the Physician. Ordering Provider: LATRICIA WOOD Report Released Date/Time: February 06, 2024 07:32 PM Reporting Lab: [facility] [place] [facility] [address] [facility] [address] Performing Lab: [facility] [place] [facility] [address] [facility] [address] [facility] [place] [facility] URINALYS IS CLEAN CATCH ERYTHROCYT ES [PRESENCE] IN URINE SEDIMENT BY LIGHT MICROSCOPY NEGATIVE mg/dL 02/07 Specimen Type: URINE Comment: If Glucose = >500 and Ketones are positive, please alert the Physician. Ordering Provider: LATRICIA WOOD Report Released Date/Time: February 06, 2024 07:32 PM Reporting Lab: [facility] [place] [facility] [address] [facility] [address] Performing Lab: [facility] [place] [facility] [address] [facility] [address] [facility] [place] [facility] URINALYS IS CLEAN CATCH PROTEIN [MASS/VOLU ME] IN URINE BY TEST STRIP NEGATIVE mg/dL 02/07 Specimen Type: URINE Comment: If Glucose = >500 and Ketones are positive, please alert the Physician. Ordering Provider: LATRICIA WOOD Report Released Date/Time: February 06, 2024 07:32 PM Reporting Lab: [facility] [place] [facility] [address] [facility] [address] Performing Lab: [facility] [place] [facility] [address] [facility] [address] [facility] [place] [facility] URINALYS IS CLEAN CATCH NITRITE [PRESENCE] IN URINE NEGATIVE mg/dL 02/07 Specimen Type: URINE Comment: If Glucose = >500 and Ketones are positive, please alert the Physician. Ordering Provider: LATRICIA WOOD Report Released Date/Time: February 06, 2024 07:32 PM Reporting Lab: [facility] [place] [facility] [address] [facility] [address] Performing Lab: [facility] [place] [facility] [address] [facility] [address] [facility] [place] [facility] URINALYS IS CLEAN CATCH BILIRUBIN. TOTAL [PRESENCE] IN URINE NEGATIVE mg/dL 02/07 Specimen Type: URINE Comment: If Glucose = >500 and Ketones are positive, please alert the Physician. Ordering Provider: LATRICIA WOOD Report Released Date/Time: February 06, 2024 07:32 PM Reporting Lab: [facility] [place] [facility] [address] [facility] [address] Performing Lab: [facility] [place] [facility] [address] [facility] [address] [facility] [place] [facility] URINALYS IS CLEAN CATCH SPECIFIC GRAVITY OF URINE BY REFRACTOME TRY 1.018 1.016 - 1.022 02/07 Specimen Type: URINE Comment: If Glucose = >500 and Ketones are positive, please alert the Physician. Ordering Provider: LATRICIA WOOD Report Released Date/Time: February 06, 2024 07:32 PM Reporting Lab: [facility] [place] [facility] [address] [facility] [address] Performing Lab: [facility] [place] [address] [address] [facility] [place] [facility] URINALYS IS CLEAN CATCH PH OF URINE BY TEST STRIP 6.0 5.0 - 9.0 02/07 Specimen Type: URINE Comment: If Glucose = >500 and Ketones are positive, please alert the Physician. Ordering Provider: LATRICIA WOOD Report Released Date/Time: February 06, 2024 07:32 PM Reporting [facility]: [facility] [place] [facility] [address] [facility] [address] Performing Lab: [facility] [place] [facility] [address] [facility] [address] [facility] [place] [facility] URINALYS IS CLEAN CATCH UROBILINOG EN [MASS/VOLU ME] IN URINE BY TEST STRIP <2.0mg/d L <2.0 - 2.0 02/07 Specimen Type: URINE Comment: If Glucose = >500 and Ketones are positive, please alert the Physician. Ordering Provider: LATRICIA WOOD Report Released Date/Time: February 06, 2024 07:32 PM Reporting Lab: [facility] [place] [facility] [address] [facility] [address] Performing Lab: [facility] [place] [facility] [address] [facility] [address] [facility] [place] [facility] URINALYS IS CLEAN CATCH LEUKOCYTE ESTERASE [PRESENCE] IN URINE BY TEST STRIP NEGATIVE 02/07 Specimen Type: URINE Comment: If Glucose = >500 and Ketones are positive, please alert the Physician. Ordering Provider: LATRICIA WOOD Report Released Date/Time: February 06, 2024 07:32 PM Reporting Lab: [facility] [address] [facility] [address] Performing Lab: [facility] [place] [facility] [address] [facility] [address] [facility] Encounters Combined list of: 1) Encounters from Department of [facility] Affairs facilities going backup to the last 18 months, not all [place] inpatient encounters are included; 2) Encounters from the Department of [facility] facilities going backup to 280 months. Location Location Details Encounter Type Encounter Number Reason For Visit Attending Provider ADM Date DC Date Status Dis[facility] Source [facility] CP[facility] OPHTH DX IMG POST SEGMT [id number] Diagnos is: ICD-10- CM H40.013 Open angle with borderl ine finding s, low risk, bilater al HAILEY LOWRYE 12/22 [facility] [place] [facility] COMPRE OPH EXAM EST PT 1/> [id number] Diagnos is: ICD-10- CM E11.9 Type 2 diabete s mellitu s without complic ations HAILEY LOWRYE 12/22 [facility] [place] [facility] FIT SPECTACLES MONOFOCAL [id number] Diagnos is: ICD-10- CM Z46.0 Encount er for fit/adj st of spectac les and contact lenses HAILEY LOWRYE 12/22 [place] [facility] [place] [facility] OFF[facility] O/P EST LOW 20 MIN [id number] Diagnos is: ICD-10- CM E11.9 Type 2 diabete s mellitu s without complic ations MARINA WOOD RD 02/13 [facility] [place] [place] [facility] [place] [facility] Outpatient Encounter [id number] 02/17 [facility] [place] [facility] [place] [facility] Outpatient Encounter [id number] 02/22 [place] [facility] [place] [facility] Social History Combined list of available smoking, tobacco, and other social history from 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 Social History Type Response Date Comment Source [facility]/14[facility]20[facility] [place] [facility] History of tobacco use MA-TOBACCO FORMER USER 02/14/2024 [facility] [place] [facility] History of tobacco use MA-TOBACCO FORMER USER 02/12/2023 [facility] [place] [facility] History of tobacco use MA-TOBACCO FORMER USER 02/13/2022 [facility] [place] [facility] History of tobacco use MA-TOBACCO FORMER USER 02/11/2021 [facility] [place] [facility] History of tobacco use MA-TOBACCO FORMER USER 12/22/2019 [facility] [place] [facility]2018 [facility] [place] [facility] History of tobacco use LIFETIME NON-TOBACCO USER 02/17/2018 [facility] [place] [facility] History of tobacco use QUIT TOBACCO USE > 7 YEARS AGO 03/02/2016 PT STATES HE STOPEED 20 YRS AGO. [facility] [place] [facility] History of tobacco use QUIT TOBACCO USE > 7 YEARS AGO 04/18/2010 [facility] [place] [facility] Plan of Care List of future care activities from Department of 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 Additional future care activities may be listed in the Assessment and Plan section. Date/Time Care Activity Care Activity Detail Facili ty 05/17/2025 AMBULATORY - MEDICINE AMBULATORY - MEDICI NE [facility] [place] [facility] Advance Directives List of completed, amended, or rescinded Advance Directives on record at Department of [facility] facilities. An actual copy of the Directive is not included. Date Advance Directive Provider Source 02/18/2024 ADVANCE DIRECTIVE ALECIA WOOD [facility]
--- NOTE | ~2025-03-20 | XR_ITS ---
CLINICAL HISTORY: M25.559 - Pain in unspecified hip 2 views of the pelvis: Comparison: None. Findings: No fractures and no dislocations. Bilateral hip arthroplasties are in satisfactory alignment with normal acetabular angles. No loosening or breakage of the hardware. Pubic bones and sacrum are unremarkable. Sacral iliac joints and iliac crests are not completely visualized. Visualized portions of sacral neural foramina are symmetric. Impression: Normal bilateral hips arthroplasties in good alignment with no signs of loosening or breakage of the hardware. A mid right femoral shaft dynamic plate with cortical screws is incompletely visualized. This document has been electronically signed by: Krunal Wilson MD on 03/21/2025 14:23:37
--- OUTSIDE RECORDS SUMMARY | 2025-03-21 10:42 | XMS_ITS | Patient Health Record ---
Author Organization [facility] Address [address] [place] [id number] Care Team Providers Care Residential Builder Name Role Phone Daniel Romano MD Primary Care Provider Mac Rose [phone] Allergies Allergen (clinical drug ingredient) Drug/Non Drug [...] Problem Status W/U Status Risk Notes Problem [id number] Encounter for screening for malignant neoplasm of colon (Z12.11) Active confirmed Problem [id number] Aspirin long-term use (Z79.82) Active confirmed Problem [id number] Hypertension, unspecified type (I10) Active confirmed Plan Of Treatment Future Test Test Name Order Date COLONOSCOPY 12/30/2017 Insurance Providers Payer Name Payer Address Payer Phone Subscriber Number Group Number Insured Name Patient Relationship to Insured Coverage Start Date Coverage End Date MEDICARE OF [place] [address] [place] [address] [id number] VEE SAL Self - patient is the insured [facility]ID [facility] [address] [place] [address] [id number] VEE SAL Self - patient is the insured Medical (General) History Medical History History ICD Code Denies RI,CVA,renal disease COPD NIDDM Neuropathy in feet Sleep apnea--uses CPAP Negative colonoscopies in 31 12 and 2006 other than diverticulosis and internal hemorrhoids Surgical History Surgery Date(Month/Year) Left knee replacement 2015 Right knee replacement 2014 Right hip replacement 2013 Metal plates due to femur surgery 2016 Pericarditis with pericardectomy in the Rectal fistula Lumbar disc
== END 2025-03-20 10:00 | disposition home or self-care (01) ==
LOC: HO.HOSX 09:59
PROVIDERS: Visit Provider Physician Assistant
DX: M25.552 Pain in left hip (principal); Z96.642 Presence of left artificial hip joint
CPT/HCPCS: 72170; 99212

== ENCOUNTER 2025-03-20 13:32 | Outpatient (AMB) | payer MEDICARE, SELFPAY ==
--- OUTSIDE RECORDS SUMMARY | 2024-10-19 05:15 | XMS_ITS ---
Author Organization [facility] [place] Address [address] [place] [address] Care Team Providers Care Ict Support And Test Engineers Name Role Phone Daniel Romano Primary Care Provider Chantel Smith Unavailable [phone] Allergies Allergen (clinical drug ingredient) Drug/Non Drug [...] Active Encounters Encounter Location Date Provider Diagnosis [facility] [address] [address] 10/19/2024 Chantel Infante Plan Of Treatment Next Appt Details Provider Name:Chantel Askew allison, 03/28/2025 03:15:00 PM, [address] [place] [address], [phone], Progress Notes * Festus MUNOZDOB:1950 ( 74 yo M)Acc No.[id number]:10/19/2024 Progress Note Patient: Festus BARRIENTOS Provider: Rosemary Infante DPM :1950 A ge:74 Y S ex:Male Date:10/19/2024 Address:[address] [place] [address], [place] Pcp:Daniel Romano Subjective: * Chief Complaints: * [...] 0 10/19/2024 Generated for Lorrie schaefer/Tequila/Barbara on: 0 03/20/2025 02:13 PM EDT
--- OUTSIDE RECORDS SUMMARY | 2025-02-23 03:14 | XMS_ITS | Continuity of Care Document ---
Author Name [facility] Organization [facility] Care Team Providers Care Worm Sorter Name Role Phone [facility] Unavailable Unavailable Problems Combined list of problems from 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 It does not include entries that were removed or entered in error. Problem Status Onset Date Problem Type Date of Resolution Comments Source Hypercholesterolemia Active 019 Condition Feb 14, 2019 Entered By: ALECIA WOOD Comment: treated with medication [facility] Impaired fasting glycaemia (SNOMED [place] [id number]) Active 014 Condition [facility] Tremor Active 010 Condition [facility] Disc Disease Active 009 Condition [facility] Diabetes Mellitus Type 2 ([facility] [id number]) Active Condition [facility] [...] NEEDED FOR DRY EYE OPHTHA LMIC 12/23/2024 [id number] Rocky LOWRY 2023 15 [facility] METFORMIN HCL TAB,ORAL TAKE BY MOUTH TWICE DAILY ORAL ACTIVE Rocky LOWRY 2018 [facility] SIMVASTATIN 20MG TAB TAKE ONE-HALF TABLET BY MOUTH AT BEDTIME ORAL ACTIVE JOSH WOOD 2023 [facility] Immunizations Combined list of available immunizations from the 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 Immunization Series Date Given Administered By Site Reaction Lot Number CVX Code Drug Carpenter Inspector Status Comments Source INFLUENZA, UNSPECIFIED FORMULATION 2021 88 complet ed HISTORICA L INFORMATI ON - FROM PATIENT'S RECALL, [facility] COVID-19 (PFIZER), MRNA, LNP-S, PF, 30 MCG/0.3 ML DOSE 3 2020 208 complet ed HISTORICA L INFORMATI ON - FROM PATIENT'S WRITTEN RECORD, [facility] COVID-19 (PFIZER), MRNA, LNP-S, PF, 30 MCG/0.3 ML DOSE 2 2020 208 complet ed HISTORICA L INFORMATI ON - FROM PATIENT'S WRITTEN RECORD, Lot#: [id number] [facility] COVID-19 (PFIZER), MRNA, LNP-S, PF, 30 MCG/0.3 ML DOSE 1 2020 208 complet ed HISTORICA L INFORMATI ON - FROM PATIENT'S WRITTEN RECORD, Lot#: [id number] [facility] INFLUENZA, UNSPECIFIED FORMULATION 2019 88 complet ed [facility] INFLUENZA, SEASONAL, INJECTABLE 2018 141 complet ed [facility] INFLUENZA, SEASONAL, INJECTABLE 2016 141 complet ed [facility] FLU,3 YRS (HISTORICAL) 2015 88 complet ed [facility] FLU,3 YRS (HISTORICAL) 2014 88 [...] PM Reporting Lab: [facility] [address] [address] [facility]: [facility] [place] [facility] [address] [facility] [address] [facility] BASIC METABOLI C PANEL (fasting ) GLUCOSE [MASS/VOLU ME] IN SERUM OR PLASMA 126 mg/dL 65 - 100 02/07 H Specimen Type: SERUM No comment entered. Ordering Provider: LATRICIA WOOD Report Released Date/Time: February 06, 2024 07:32 PM Reporting Lab: [facility] [place] [facility] [address] [facility] [address] Performing Lab: [facility] [address] [facility] BASIC METABOLI C PANEL (fasting ) SODIUM [MOLES/VOL UME] IN SERUM OR PLASMA 140 mmol/L 135 - 145 02/07 Specimen Type: SERUM No comment entered. Ordering Provider: LATRICIA WOOD Report Released Date/Time: February 06, 2024 07:32 PM Reporting Lab: [facility] [address] [facility] [address] Performing Lab: [facility] [address] [facility]ITAL[facility] BASIC METABOLI C PANEL (fasting ) POTASSIUM [MOLES/VOL UME] IN SERUM OR PLASMA 4.9 mmol/L 3.5 - 5.0 02/07 Specimen Type: SERUM No comment entered. Ordering Provider: LATRICIA WOOD Report Released Date/Time: February 06, 2024 07:32 PM Reporting Lab: [facility] [place] [address] Performing Lab: [facility] [address] [facility] BASIC METABOLI C PANEL (fasting ) CHLORIDE [MOLES/VOL UME] IN SERUM OR PLASMA 105 mmol/L 100 - 110 02/07 Specimen Type: SERUM No comment entered. Ordering Provider: LATRICIA WOOD Report Released Date/Time: February 06, 2024 07:32 PM Reporting Lab: [facility] [place] [facility] [address] [facility] [address] Performing Lab: [facility] [place] [facility] [address] [facility] [address] [facility] BASIC METABOLI C PANEL (fasting ) CARBON DIOXIDE, TOTAL [MOLES/VOL UME] IN SERUM OR PLASMA 25 meq/L 20 - 30 02/07 Specimen Type: SERUM No comment entered. Ordering Provider: LATRICIA WOOD Report Released Date/Time: February 06, 2024 07:32 PM Reporting Lab: [facility] [place] [facility] [address] [facility] [address] Performing Lab: [place] [facility] [place] [address] [address] [facility] [place] [facility] BASIC METABOLI C PANEL (fasting ) CREATININE [MASS/VOLU ME] IN SERUM OR PLASMA 1.10 mg/dL 0.50 - 1.40 02/07 Specimen Type: SERUM No comment entered. Ordering Provider: LATRICIA WOOD Report Released Date/Time: February 06, 2024 07:32 PM Reporting Lab: [facility] [place] [facility] [address] [facility] [address] Performing Lab: [facility] [place] [address] [address] [facility] [place] [facility] BASIC METABOLI C PANEL (fasting ) GLOMERULAR FILTRATION RATE/1.73 SQ M.PREDICTE D [VOLUME RATE/AREA] IN SERUM, PLASMA OR BLOOD BY CREATININE -BASED FORMULA (CKD-EPI 2020) 70 mL/min 60 02/07 Specimen Type: SERUM No comment entered. Ordering Provider: LATRICIA WOOD Report Released Date/Time: February 06, 2024 07:32 PM Reporting Lab: [facility] [place] [facility] [address] [facility] [address] Performing Lab: [facility] [place] [address] [address] [facility] [place] [facility] CBC AND DIFF (AUTO) LEUKOCYTES [#/VOLUME] IN BLOOD BY AUTOMATED COUNT 6.68 10*3/uL 4.50 - 11.00 02/07 Specimen Type: BLOOD No comment entered. Ordering Provider: LATRICIA WOOD Report Released Date/Time: February 06, 2024 07:32 PM Reporting Lab: [facility] [place] [address] [address] Performing Lab: [facility] [place] [facility] [address] [facility] [address] [facility] [place] [facility] CBC AND DIFF (AUTO) ERYTHROCYT ES [#/VOLUME] IN BLOOD BY AUTOMATED COUNT 4.23 10*6/uL 4.23 - 5.66 02/07 Specimen Type: BLOOD No comment entered. Ordering Provider: LATRICIA WOOD Report Released Date/Time: February 06, 2024 07:32 PM Reporting Lab: [facility] [place] [address] [address] Performing Lab: [facility] [place] [address] [address] [facility] [place] [facility] CBC AND DIFF (AUTO) HEMOGLOBIN [MASS/VOLU ME] IN BLOOD 13.7 g/dL 12.8 - 17 02/07 Specimen Type: BLOOD No comment entered. Ordering Provider: LATRICIA WOOD Report Released Date/Time: February 06, 2024 07:32 PM Reporting Lab: [facility] [place] [address] [address] Performing Lab: [place] [facility] [place] [address] [address] [facility]ITALTR[facility] [place] [facility] CBC AND DIFF (AUTO) HEMATOCRIT [VOLUME FRACTION] OF BLOOD BY AUTOMATED COUNT 40.4 39.2 - 50.4 02/07 Specimen Type: BLOOD No comment entered. Ordering Provider: LATRICIA WOOD Report Released Date/Time: February 06, 2024 07:32 PM Reporting Lab: [facility] [place] [address] [address] Performing Lab: [facility] [address] [facility] [address] [facility] [place] [facility] CBC AND DIFF (AUTO) MCV [ENTITIC VOLUME] BY AUTOMATED COUNT 95.5 fL 82 - 99 02/07 Specimen Type: BLOOD No comment entered. Ordering Provider: LATRICIA WOOD Report Released Date/Time: February 06, 2024 07:32 PM Reporting Lab: [facility] [place] [facility] [address] [facility] [address] Performing Lab: [facility] [place] [facility] [address] [facility] [address] [facility] [place] [facility] CBC AND DIFF (AUTO) MCHC [MASS/VOLU ME] BY AUTOMATED COUNT 33.9 g/dL 30.8 - 35.1 02/07 Specimen Type: BLOOD No comment entered. Ordering Provider: LATRICIA WOOD Report Released Date/Time: February 06, 2024 07:32 PM Reporting Lab: [facility] [place] [facility] [address] [facility] [address] Performing Lab: [facility] [place] [facility] [address] [facility] [address] [place] [facility] [place] [facility] CBC AND DIFF (AUTO) PLATELETS [#/VOLUME] IN BLOOD BY AUTOMATED COUNT 196 10*3/uL 140 - 360 02/07 Specimen Type: BLOOD No comment entered. Ordering Provider: LATRICIA WOOD Report Released Date/Time: February 06, 2024 07:32 PM Reporting Lab: [facility] [place] [facility] [address] [facility] [address] Performing Lab: [facility] [place] [facility] [address] [facility] [address] [place] [facility] [place] [facility] CBC AND DIFF (AUTO) ERYTHROCYT E DISTRIBUTI ON WIDTH [RATIO] BY AUTOMATED COUNT 12.6 12.0 - 16.0 02/07 Specimen Type: BLOOD No comment entered. Ordering Provider: LATRICIA WOOD Report Released Date/Time: February 06, 2024 07:32 PM Reporting Lab: [facility] [place] [facility] [address] [facility] [address] Performing Lab: [facility] [place] [facility] [address] [facility] [address] [facility] CBC AND DIFF (AUTO) MONOCYTES [#/VOLUME] IN BLOOD BY AUTOMATED COUNT 0.73 10*3/uL 0.30 - 1.10 02/07 Specimen Type: BLOOD No comment entered. Ordering Provider: LATRICIA WOOD Report Released Date/Time: February 06, 2024 07:32 PM Reporting Lab: [facility] [place] [facility] [address] [facility] [address] Performing Lab: [facility] [place] [facility] [address] [facility] [address] [facility] [place] [facility] CBC AND DIFF (AUTO) MCH [ENTITIC MASS] BY AUTOMATED COUNT 32.4 pg 26.2 - 32.6 02/07 Specimen Type: BLOOD No comment entered. Ordering Provider: LATRICIA WOOD Report Released Date/Time: February 06, 2024 07:32 PM Reporting Lab: [facility] [place] [facility] [address] [facility] [address] Performing Lab: [facility] [place] [facility] [address] [facility] [address] [facility] [place] [facility] CBC AND DIFF (AUTO) NEUTROPHIL S/100 LEUKOCYTES IN BLOOD BY AUTOMATED COUNT 68.4 43.7 - 75.8 02/07 Specimen Type: BLOOD No comment entered. Ordering Provider: LATRICIA WOOD Report Released Date/Time: February 06, 2024 07:32 PM Reporting Lab: [facility] [place] [facility] [address] [facility] [address] Performing Lab: [facility] [place] [address] [address] [place] [facility] [place] [facility] CBC AND DIFF (AUTO) LYMPHOCYTE S/100 LEUKOCYTES IN BLOOD BY AUTOMATED COUNT 16.6 14.0 - 42.3 02/07 Specimen Type: BLOOD No comment entered. Ordering Provider: LATRICIA WOOD Report Released Date/Time: February 06, 2024 07:32 PM Reporting Lab: [facility] [address] [facility] [address] Performing Lab: [facility] [address] [facility] [address] [facility] CBC AND DIFF (AUTO) MONOCYTES/ 100 LEUKOCYTES IN BLOOD BY AUTOMATED COUNT 10.9 5.1 - 13.7 02/07 Specimen Type: BLOOD No comment entered. Ordering Provider: LATRICIA WOOD Report Released Date/Time: February 06, 2024 07:32 PM Reporting Lab: [facility] [address] [facility] [address] Performing Lab: [facility] [address] [facility] [address] [facility] CBC AND DIFF (AUTO) EOSINOPHIL S/100 LEUKOCYTES IN BLOOD BY AUTOMATED COUNT 3.1 0.4 - 6.8 02/07 Specimen Type: BLOOD No comment entered. Ordering Provider: LATRICIA WOOD Report Released Date/Time: February 06, 2024 07:32 PM Reporting Lab: [facility] [address] [facility] [address] Performing Lab: [facility] [place] [facility] [address] [facility] [address] [facility] CBC AND DIFF (AUTO) BASOPHILS/ 100 LEUKOCYTES IN BLOOD BY AUTOMATED COUNT 0.7 0.1 - 2.0 02/07 Specimen Type: BLOOD No comment entered. Ordering Provider: LATRICIA WOOD Report Released Date/Time: February 06, 2024 07:32 PM Reporting Lab: [facility] [address] [facility] [address] Performing Lab: [facility] [address] [facility] [address] [facility] [place] CBC AND DIFF (AUTO) NEUTROPHIL S [#/VOLUME] IN BLOOD BY AUTOMATED COUNT 4.56 10*3/uL 2.20 - 7.60 02/07 Specimen Type: BLOOD No comment entered. Ordering Provider: LATRICIA WOOD Report Released Date/Time: February 06, 2024 07:32 PM Reporting Lab: [facility] [place] [address] [address] Performing Lab: [facility] [place] [address] [address] [facility] CBC AND DIFF (AUTO) LYMPHOCYTE S [#/VOLUME] IN BLOOD BY AUTOMATED COUNT 1.11 10*3/uL 1.00 - 3.20 02/07 Specimen Type: BLOOD No comment entered. Ordering Provider: LATRICIA WOOD Report Released Date/Time: February 06, 2024 07:32 PM Reporting Lab: [facility] [place] [address] [address] Performing Lab: [facility] [place] [address] [address] [facility] [place] [facility] CBC AND DIFF (AUTO) EOSINOPHIL S [#/VOLUME] IN BLOOD BY AUTOMATED COUNT 0.21 10*3/uL 0.03 - 0.44 02/07 Specimen Type: BLOOD No comment entered. Ordering Provider: LATRICIA WOOD Report Released Date/Time: February 06, 2024 07:32 PM Reporting Lab: [facility] [place] [address] [address] Performing Lab: [facility] [place] [address] [address] [facility] [place] [facility] CBC AND DIFF (AUTO) BASOPHILS [#/VOLUME] IN BLOOD BY AUTOMATED COUNT 0.05 10*3/uL 0.01 - 0.13 02/07 Specimen Type: BLOOD No comment entered. Ordering Provider: LATRICIA WOOD Report Released Date/Time: February 06, 2024 07:32 PM Reporting Lab: [facility] [place] [address] [address] Performing Lab: [facility] [place] [address] [place] [address] [facility] CBC AND DIFF (AUTO) IMMATURE GRANULOCYT ES/100 LEUKOCYTES IN BLOOD BY AUTOMATED COUNT 0.3 0.0 - 0.7 02/07 Specimen Type: BLOOD No comment entered. Ordering Provider: LATRICIA WOOD Report Released Date/Time: February 06, 2024 07:32 PM Reporting Lab: [address] [address] Performing Lab: [address] [address] [facility] CBC AND DIFF (AUTO) IMMATURE GRANULOCYT ES [#/VOLUME] IN BLOOD 0.02 10*3/uL 0.00 - 0.06 02/07 Specimen Type: BLOOD No comment entered. Ordering Provider: LATRICIA WOOD Report Released Date/Time: February 06, 2024 07:32 PM Reporting Lab: [address] [address] Performing Lab: [address] [address] [facility] HEMOGLOB IN A1C PANEL HEMOGLOBIN [...] February 06, 2024 07:32 PM Reporting Lab: [address] [address] Performing Lab: [address] [address] [facility] LIPID PANEL FASTING CHOLESTERO L [MASS/VOLU ME] IN SERUM OR PLASMA 162 mg/dL 02/07 Specimen Type: SERUM No comment entered. Ordering Provider: LATRICIA WOOD Report Released Date/Time: February 06, 2024 07:32 PM Reporting Lab: [facility] [place] [facility] [address] [facility] [address] Performing Lab: [facility] [place] [facility] [address] [facility] [address] [facility] [facility] LIPID PANEL FASTING TRIGLYCERI DE [MASS/VOLU ME] IN SERUM OR PLASMA 112 mg/dL 0 - 150 02/07 Specimen Type: SERUM No comment entered. Ordering Provider: LATRICIA WOOD Report Released Date/Time: February 06, 2024 07:32 PM Reporting Lab: [facility] [place] [facility] [address] [facility] [address] Performing Lab: [facility] [place] [facility] [address] [facility] [address] [facility] LIPID PANEL FASTING CHOLESTERO L IN LDL [MASS/VOLU ME] IN SERUM OR PLASMA BY CALCULATIO N 98 mg/dL 0 - 129 02/07 Specimen Type: SERUM No comment entered. Ordering Provider: LATRICIA WOOD Report Released Date/Time: February 06, 2024 07:32 PM Reporting Lab: [facility] [place] [address] [address] Performing Lab: [facility] [place] [facility] [address] [facility] [address] [facility] [place] [facility] LIPID PANEL FASTING CHOLESTERO L.TOTAL/CH OLESTEROL IN HDL [MASS RATIO] IN SERUM OR PLASMA 3.9 02/07 Specimen Type: SERUM No comment entered. Ordering Provider: LATRICIA WOOD Report Released Date/Time: February 06, 2024 07:32 PM Reporting Lab: [facility] [place] [facility] [address] [facility] [address] Performing Lab: [facility] [place] [facility] [address] [facility] [address] [place] [facility] [place] [facility] LIPID PANEL FASTING CHOLESTERO L IN HDL [MASS/VOLU ME] IN SERUM OR PLASMA 42 mg/dL 40 - 60 02/07 Specimen Type: SERUM No comment entered. Ordering Provider: LATRICIA WOOD Report Released Date/Time: February 06, 2024 07:32 PM Reporting Lab: [facility] [place] [facility] [address] [facility] [address] Performing Lab: [facility] [place] [facility] [address] [facility] [address] [facility] [place] [facility] LIVER FUNCTION PROTEIN [MASS/VOLU ME] IN SERUM OR PLASMA 6.0 g/dL 6.0 - 8.3 02/07 Specimen Type: SERUM No comment entered. Ordering Provider: LATRICIA WOOD Report Released Date/Time: February 06, 2024 07:32 PM Reporting Lab: [facility] [place] [facility] [address] [facility] [address] Performing Lab: [facility] [place] [facility] [address] [facility] [address] [facility] [facility] LIVER FUNCTION ALBUMIN [MASS/VOLU ME] IN SERUM OR PLASMA 3.7 g/dL 3.5 - 5.0 02/07 Specimen Type: SERUM No comment entered. Ordering Provider: LATRICIA WOOD Report Released Date/Time: February 06, 2024 07:32 PM Reporting Lab: [facility] [place] [facility] [address] [facility] [address] Performing Lab: [facility] [place] [facility] [address] [facility] [address] [facility] [place] [facility] LIVER FUNCTION ALKALINE PHOSPHATAS E [ENZYMATIC ACTIVITY/V OLUME] IN SERUM OR PLASMA 41 U/L 40 - 150 02/07 Specimen Type: SERUM No comment entered. Ordering Provider: LATRICIA WOOD Report Released Date/Time: February 06, 2024 07:32 PM Reporting Lab: [facility] [place] [facility] [address] [facility] [address] Performing Lab: [facility] [place] [facility] [address] [facility] [address] [facility] LIVER FUNCTION ASPARTATE AMINOTRANS FERASE [ENZYMATIC ACTIVITY/V OLUME] IN SERUM OR PLASMA 18 U/L 5 - 34 02/07 Specimen Type: SERUM No comment entered. Ordering Provider: LATRICIA WOOD Report Released Date/Time: February 06, 2024 07:32 PM Reporting Lab: [facility] [place] [facility] [address] [facility] [address] Performing Lab: [place] [facility] [place] [facility] [address] [facility] [address] [facility] LIVER FUNCTION ALANINE AMINOTRANS FERASE [ENZYMATIC ACTIVITY/V OLUME] IN SERUM OR PLASMA 21 U/L 02/07 Specimen Type: SERUM No comment entered. Ordering Provider: LATRICIA WOOD Report Released Date/Time: February 06, 2024 07:32 PM Reporting Lab: [facility] [place] [facility] [address] [facility] [address] Performing Lab: [facility] [place] [facility] [address] [facility] [address] [facility] LIVER FUNCTION BILIRUBIN. TOTAL [MASS/VOLU ME] IN SERUM OR PLASMA 0.8 mg/dL 0.2 - 1.2 02/07 Specimen Type: SERUM No comment entered. Ordering Provider: LATRICIA WOOD Report Released Date/Time: February 06, 2024 07:32 PM Reporting Lab: [facility] [place] [facility] [address] [facility] [address] Performing Lab: [place] [facility] [place] [facility] [address] [facility] [address] [facility] MICROALB UMIN CREATINI NE RATIO PANEL MICROALBUM IN/CREATIN INE [MASS RATIO] IN URINE 12.9 mg/g 0 - 29.9 02/07 Specimen Type: URINE No comment entered. Ordering Provider: LATRICIA WOOD Report Released Date/Time: February 06, 2024 07:32 PM Reporting Lab: [facility] [place] [facility] [address] [facility] [address] Performing Lab: [facility] [place] [facility] [address] [facility] [address] [facility] [place] [facility] MICROALB UMIN CREATINI NE RATIO PANEL MICROALBUM IN [MASS/VOLU ME] IN URINE 1.4 mg/dL 02/07 Specimen Type: URINE No comment entered. Ordering Provider: LATRICIA WOOD Report Released Date/Time: February 06, 2024 07:32 PM Reporting Lab: [facility] [place] [facility] [address] [facility] [address] Performing Lab: [place] [facility] [place] [address] [address] [place] [facility] [facility] MICROALB UMIN CREATINI NE RATIO PANEL CREATININE [MASS/VOLU ME] IN URINE 108.66 mg/dL 02/07 Specimen Type: URINE No comment entered. Ordering Provider: LATRICIA WOOD Report Released Date/Time: February 06, 2024 07:32 PM Reporting Lab: [place] [facility] [address] [address] Performing Lab: [facility] [place] [facility] [address] [facility] [address] [facility] [place] [facility] TSH THYROTROPI N [UNITS/VOL UME] IN SERUM OR PLASMA 1.39 u[IU]/mL 0.35 - 5.00 02/07 Specimen Type: SERUM No comment entered. Ordering Provider: LATRICIA WOOD Report Released Date/Time: February 06, 2024 07:32 PM Reporting Lab: [facility] [place] [address] [address] Performing Lab: [facility] [place] [address] [address] [place] [facility] [facility] URINALYS IS CLEAN CATCH COLOR OF URINE Light-Ye llow 02/07 Specimen Type: URINE Comment: If Glucose = >500 and Ketones are positive, please alert the Physician. Ordering Provider: LATRICIA WOOD Report Released Date/Time: February 06, 2024 07:32 PM Reporting Lab: [facility] [place] [facility] [address] [facility] [address] Performing Lab: [facility] [place] [facility] [address] [facility] [address] [facility] [place] [facility] URINALYS IS CLEAN CATCH APPEARANCE OF URINE Clear 02/07 Specimen Type: URINE Comment: If Glucose = >500 and Ketones are positive, please alert the Physician. Ordering Provider: LATRICIA WOOD Report Released Date/Time: February 06, 2024 07:32 PM Reporting Lab: [facility] [place] [facility] [address] [facility] [address] Performing Lab: [facility] [place] [facility] [address] [facility] [address] [facility] [place] [facility] URINALYS IS CLEAN CATCH GLUCOSE [MASS/VOLU ME] IN URINE NEGATIVE mg/dL 02/07 Specimen Type: URINE Comment: If Glucose = >500 and Ketones are positive, please alert the Physician. Ordering Provider: LATRICIA WOOD Report Released Date/Time: February 06, 2024 07:32 PM Reporting Lab: [facility] [place] [facility] [address] [facility] [address] Performing Lab: [facility] [place] [facility] [address] [facility] [address] [facility] [place] [facility] URINALYS IS CLEAN CATCH KETONES [MASS/VOLU ME] IN URINE BY TEST STRIP NEGATIVE mg/dL 02/07 Specimen Type: URINE Comment: If Glucose = >500 and Ketones are positive, please alert the Physician. Ordering Provider: LATRICIA WOOD Report Released Date/Time: February 06, 2024 07:32 PM Reporting Lab: [facility] [place] [facility] [address] [facility] [address] Performing Lab: [facility] [place] [facility] [address] [facility] [address] [facility] [place] [facility] URINALYS IS CLEAN CATCH ERYTHROCYT ES [PRESENCE] IN URINE SEDIMENT BY LIGHT MICROSCOPY NEGATIVE mg/dL 02/07 Specimen Type: URINE Comment: If Glucose = >500 and Ketones are positive, please alert the Physician. Ordering Provider: LATRICIA WOOD Report Released Date/Time: February 06, 2024 07:32 PM Reporting Lab: [place] [facility] [place] [facility] [address] [facility] [address] Performing Lab: [facility] [place] [facility] [address] [facility] [address] [place] [facility] [place] [facility] URINALYS IS CLEAN CATCH PROTEIN [MASS/VOLU ME] IN URINE BY TEST STRIP NEGATIVE mg/dL 02/07 Specimen Type: URINE Comment: If Glucose = >500 and Ketones are positive, please alert the Physician. Ordering Provider: LATRICIA WOOD Report Released Date/Time: February 06, 2024 07:32 PM Reporting Lab: [place] [facility] [place] [facility] [address] [facility] [address] Performing Lab: [place] [facility] [place] [facility] [address] [facility] [address] [place] [facility] [place] [facility] URINALYS IS CLEAN CATCH NITRITE [PRESENCE] IN URINE NEGATIVE mg/dL 02/07 Specimen Type: URINE Comment: If Glucose = >500 and Ketones are positive, please alert the Physician. Ordering Provider: LATRICIA WOOD Report Released Date/Time: February 06, 2024 07:32 PM Reporting Lab: [facility] [place] [facility] [address] [facility] [address] Performing Lab: [place] [facility] [place] [facility] [address] [facility] [address] [facility] [place] [facility] URINALYS IS CLEAN CATCH BILIRUBIN. TOTAL [PRESENCE] IN URINE NEGATIVE mg/dL 02/07 Specimen Type: URINE Comment: If Glucose = >500 and Ketones are positive, please alert the Physician. Ordering Provider: LATRICIA WOOD Report Released Date/Time: February 06, 2024 07:32 PM Reporting Lab: [facility] [place] [facility] [address] [facility] [address] Performing Lab: [place] [facility] [place] [facility] [address] [facility] [address] [place] [facility] [place] [facility] URINALYS IS CLEAN CATCH SPECIFIC GRAVITY OF URINE BY REFRACTOME TRY 1.018 1.016 - 1.022 02/07 Specimen Type: URINE Comment: If Glucose = >500 and Ketones are positive, please alert the Physician. Ordering Provider: LATRICIA WOOD Report Released Date/Time: February 06, 2024 07:32 PM Reporting Lab: [place] [facility] [place] [facility] [address] [facility] [address] Performing Lab: [place] [facility] [place] [address] [address] [place] [facility] [place] [facility] URINALYS IS CLEAN CATCH PH OF URINE BY TEST STRIP 6.0 5.0 - 9.0 02/07 Specimen Type: URINE Comment: If Glucose = >500 and Ketones are positive, please alert the Physician. Ordering Provider: LATRICIA WOOD Report Released Date/Time: February 06, 2024 07:32 PM Reporting [facility] [place] [facility] [address] [facility] [address] Performing Lab: [place] [facility] [place] [facility] [address] [facility] [address] [facility] [facility] URINALYS IS CLEAN CATCH UROBILINOG EN [MASS/VOLU ME] IN URINE BY TEST STRIP <2.0mg/d L <2.0 - 2.0 02/07 Specimen Type: URINE Comment: If Glucose = >500 and Ketones are positive, please alert the Physician. Ordering Provider: LATRICIA WOOD Report Released Date/Time: February 06, 2024 07:32 PM Reporting Lab: [place] [facility] [place] [facility] [address] [facility] [address] Performing Lab: [place] [facility] [place] [facility] [address] [facility] [address] [place] [facility] [place] [facility] URINALYS IS CLEAN CATCH LEUKOCYTE ESTERASE [PRESENCE] IN URINE BY TEST STRIP NEGATIVE 02/07 Specimen Type: URINE Comment: If Glucose = >500 and Ketones are positive, please alert the Physician. Ordering Provider: LATRICIA WOOD Report Released Date/Time: February 06, 2024 07:32 PM Reporting Lab: [facility] [address] [facility] [address] Per[facility]: [facility] [place] [facility] [address] [facility] [address] [facility] Encounters Combined list of: 1) Encounters from Department of [facility] Affairs facilities going backup to the last 18 months, not all [place] inpatient encounters are included; 2) Encounters from the Department of [facility] facilities going backup to 280 months. Location Location Details Encounter Type Encounter Number Reason For Visit Attending Provider ADM Date DC Date Status Dis[facility] CPTR OPHTH DX IMG POST SEGMT [id number] Diagnos is: ICD-10- CM H40.013 Open angle with borderl ine finding s, low risk, bilater al [facility]ILEY LOWRYE 12/22 [place] [facility] [place] [facility] COMPRE OPH EXAM EST PT 1/> [id number] Diagnos is: ICD-10- CM E11.9 Type 2 diabete s mellitu s without complic ations HAILEY LOWRYE 12/22 [place] [facility] [place] [facility] FIT SPECTACLES MONOFOCAL [id number] Diagnos is: ICD-10- CM Z46.0 Encount er for fit/adj st of spectac les and contact lenses HAILEY LOWRYE 12/22 [place] [facility] [place] [facility] [place] OFFICE O/P EST LOW 20 MIN [id number] Diagnos is: ICD-10- CM E11.9 Type 2 diabete s mellitu s without complic ations MARINA WOOD RD 02/13 [place] [facility] [facility] [place] [facility] Outpatient Encounter [id number] 02/17 [place] [facility] [place] [facility] [place] [facility] Outpatient Encounter [id number] 02/22 [place] [facility] Social History Combined list of available smoking, tobacco, and other social history from 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 Social History Type Response Date Comment Source Tobacco [facility] 02[facility]14[facility]2024 [place] [facility] [place] [facility] History of tobacco use [place]-TO[place]ACCO FORMER USER 02/14/2024 [place] [facility] History of tobacco use [place]-TOBACCO FORMER USER 02/12/2023 [place] [facility] History of tobacco use [place]-TOBACCO FORMER USER 02/13/2022 [place] [facility] History of tobacco use [place]-TOBACCO FORMER USER 02/11/2021 [place] [facility] History of tobacco use [place]-TOBACCO FORMER USER 12/22/2019 [place] [facility] [place] [facility] of [facility] [place] [facility] History of tobacco use LIFETIME NON-TOBACCO USER 02/17/2018 [facility] [place] [facility] History of tobacco use QUIT TOBACCO USE > 7 YEARS AGO 03/02/2016 PT STATES HE STOPEED 20 YRS AGO. [facility] [place] [place] [facility] History of tobacco use QUIT TOBACCO USE > 7 YEARS AGO 04/18/2010 [facility] [place] [facility] Plan of Care List of future care activities from Department of 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 Additional future care activities may be listed in the Assessment and Plan section. Date/Time Care Activity Care Activity Detail Facili ty 05/17/2025 AMBULATORY - MEDICINE AMBULATORY - MEDICI NE [facility] [place] [facility] Advance Directives List of completed, amended, or rescinded Advance Directives on record at Department of [facility] facilities. An actual copy of the Directive is not included. Date Advance Directive Provider Source 02/18/2024 ADVANCE DIRECTIVE ALECIA WOOD [place] [facility] [facility]
[2025-03-20 13:48] VITALS: BMI 37.8
--- NOTE | 2025-03-20 13:48 | MHC.OFFVIS ---
Vital Signs 03/20/25 13:48 Height 5 ft 9 in Weight 256 lb BMI 37.8 Intake Visit Reasons: PO s/p left hip vishal 02/06/25 with NE Intake Note: Festus is a 74 year old male who presents today for a post op appointment s/p Left hip vishal 02/06/25 NE. At his last appointment he was advised to continue with physical therapy to work on glute core quad strengthening as well as gait training with the use of a walker. Patient reports he is doing well. He finds physical therapy helpful. . Allergies terbinafine (From LAMISIL) Adverse Reaction (Intermediate, Verified 03/20/25 13:55) GI UPSET Lamisil Allergy (Unknown, Uncoded 03/19/25 14:50) Stomach Upset HPI HPI PO s/p left hip vishal 02/06/25 with NE: Details: Mr. Munoz is a 74-year-old male who presents to the office today status post left hip hemiarthroplasty performed on 02/06/[address] Barreto. Patient states that he has been attending physical therapy via the [facility] at his home. He has been performing his home exercise program. He denies any pain or difficulties with ambulation. He is looking to return back to work. [facility] Medical History Lung nodule SOB (shortness of breath) on exertion Impacted cerumen of both ears Aortic dilatation Cholelithiasis Obstructive sleep apnea Erectile dysfunction Hypercholesterolemia Peripheral neuropathy Asthma Type 2 diabetes mellitus with hyperglycemia Chronic low back pain Hypertension Surgical History S/P ORIF (open reduction internal fixation) fracture History of left knee replacement History of total right knee replacement History of right hip replacement History of pericardiectomy H/O lumbar discectomy Family History Mother Mental health disorder Social History Household Members: Spouse Housing: House Do you presently have visiting nurse or other home services: No Alcohol intake: current Alcohol intake frequency: holidays/special occasions only Comment: COUNTS CORRECT Patient Tobacco Use Status: Former Tobacco user Tobacco use type: Cigarette Years Smoked: stopped 1994 e-Cigarette/Vaping Use: Never Used Second Hand Smoke Exposure: Yes Advance Directives Date on File: 12/26/21 service: Yes Current occupational status: retired Cognitive needs: No Hearing needs: Yes Vision needs: Yes Review of Systems Const All systems reviewed & are unremarkable except as noted in HPI and below Physical Exam Vital Signs: BMI result Body Mass Index 37.8 Const General: cooperative, healthy appearing and no acute distress Resp Effort & Inspection: normal respiratory effort and able to speak in complete sentences Extrem Other: Left hip incision site clean dry and intact. No signs of infection. Difficulty performing straight leg raise due to weakness. Good internal external rotation. NVI. Assessment & Plan Assessment & Plan (1) Status post hemiarthroplasty of left hip: Code(s): Z96.642 - Presence of left artificial hip joint Category: Surgical Plan Left hip incision site clean dry and intact. Stephanie intact. No surrounding erythema or drainage. No signs of infection. Difficulty performing straight leg raise. Good internal external rotation with minimal pain. NVI. Patient is at the 6 week postoperative brock and may resume driving as long as he feels he has good control and is no longer taking any pain medication. Additionally, he may discontinue the Lovenox after he completes all doses. He can return back to work at [employer]. I did remind the patient that he does need to continue following his posterior precautions. He will follow up in 6 weeks with repeat x-rays, sooner if needed. X-rays of the pelvis which were obtained while in the office today and were reviewed by me, Cynthia Thompson PA-C, revealed intact left hip hemiarthroplasty with no evidence of periprosthetic fracture or loosening. No evidence of dislocation. Orders: Orders XR pelvis 1-2V Today M25.559 - Pain in unspecified hip Coding Level of Care Code Global (85518) Diagnoses Status post hemiarthroplasty of left hip Z96.642
--- OUTSIDE RECORDS SUMMARY | 2025-03-20 14:14 | XMS_ITS | Patient Health Record ---
Author Organization [facility] Address [address] [place] [id number] Care Team Providers Care Extraction Machine Operator Name Role Phone Daniel Romano MD Primary Care Provider Mac Rose [phone] Allergies Allergen (clinical drug ingredient) Drug/Non Drug [...] Problem Status W/U Status Risk Notes Problem [id number] Encounter for screening for malignant neoplasm of colon (Z12.11) Active confirmed Problem 739779540 Aspirin long-term use (Z79.82) Active confirmed Problem 04792788 Hypertension, unspecified type (I10) Active confirmed Plan Of Treatment Future Test Test Name Order Date COLONOSCOPY 12/30/2017 Insurance Providers Payer Name Payer Address Payer Phone Subscriber Number Group Number Insured Name Patient Relationship to Insured Coverage Start Date Coverage End Date MEDICARE OF [place] [address] [place] [address] [id number] VEE SAL Self - patient is the insured MEDICAID OF [facility] [address] [place] [phone] [id number] VEE SAL Self - patient is the [...]
== END 2025-03-20 14:22 | disposition home or self-care (01) ==
LOC: HO.HOS 13:32
PROVIDERS: PCP Internal Medicine; Visit Provider Physician Assistant
DX: Z96.642 Presence of left artificial hip joint (principal)
CPT/HCPCS: 99024

== ENCOUNTER → 2025-03-20 13:34 | Outpatient (BNV) | payer MEDICARE, SELFPAY | PROVIDERS: Visit Provider Radiology Diagnostic Radiology | DX: M25.551 Pain in right hip (principal); M25.552 Pain in left hip | CPT/HCPCS: 72170 ==

== ENCOUNTER → 2025-03-23 23:59 | Outpatient (BNV) | payer MEDICARE, SELFPAY | DX: E11.40 Type 2 diabetes mellitus with diabetic neuropathy, unspecified (principal); E11.22 Type 2 diabetes mellitus with diabetic chronic kidney disease; G47.33 Obstructive sleep apnea (adult) (pediatric); N18.9 Chronic kidney disease, unspecified | CPT/HCPCS: G0180 ==

== ENCOUNTER 2025-04-13 02:56 | Emergency (ER) | payer MEDICARE, SELFPAY ==
[2025-04-13] VITALS (8 sets, daily range): BP systolic 85–126; BP diastolic 49–65; PULSE 97–108; RESP 9–14; TEMP 37.5–38.2; O2SAT 90–98; BMI 38.6
--- NOTE | ~2025-04-13 | XR_ITS ---
CLINICAL HISTORY: pain, fall, r o prosthetic hip dislocation 2 view, pelvis and left hip Comparison: DX - XR PELVIS 1-2V - 02/23/25 08:10 EDT Findings: This examination is mildly limited by suboptimal patient positioning. The proximal left femur and a portion of the left hip prosthesis are incompletely included on the frontal image. There is superolateral dislocation of the acetabular component of the left hip prosthesis with respect to the [place] left acetabulum. Artifact is identified over the left hip, mildly limiting evaluation. A vague 1.5 cm radiopaque density is identified lateral to the [place] left acetabulum, possibly consistent with an age-indeterminate fracture fragment. Partial visualization of a right hip prosthesis with a cerclage wire in place at the proximal right femur. Degenerative changes are present at the lower lumbar spine. IMPRESSION: 1. Mildly limited examination related to suboptimal patient positioning as described above. There is superolateral dislocation of the acetabular component of the left hip prosthesis with respect of the [place] left acetabulum. There may be a small adjacent age-indeterminate fracture fragment as described above. This document has been electronically signed by: Kev Christianson MD on 04/13/2025 04:22:34
--- NOTE | ~2025-04-13 | CT_ITS ---
CLINICAL HISTORY: fall, pain, r o new fx CT of the left hip without contrast Comparison: 04/13/2025 Findings: Visualized pelvic contents unremarkable. There is posterosuperior dislocation of the hip prosthesis. There is heterotopic ossification adjacent to the greater and lesser trochanters. IMPRESSION: Posterior superior dislocation of hip prosthesis This document has been electronically signed by: Marino Sweeney MD on 04/13/2025 06:31:34
--- NOTE | ~2025-04-13 | XR_ITS ---
EXAMINATION: XR HIP, LEFT CLINICAL INFORMATION: s/p reduction COMPARISON: May 02, 2025 at 3:37 AM TECHNIQUE: Single AP view of the left hip. FINDINGS: The total left hip arthroplasty prosthesis is well-seated in the osseous acetabulum and the proximal femur without gross malalignment based upon this single AP. No acute cortical disruption. XR/XR hip LT 1V IMPRESSION: Satisfactory post reduction of the prior dislocated left hip prosthesis. Electronically signed by: Reji House MD 04/13/2025 08:10 AM EDT
--- NOTE | ~2025-04-13 | XR_ITS ---
EXAMINATION: XR PELVIS CLINICAL INFORMATION: AP pelvis per orthopedics ; status post reduction COMPARISON: Earlier same day at 7:56 AM, and 3:37 AM TECHNIQUE: AP view of the pelvis. FINDINGS: Reduction of left hip prosthetic dislocation. There is anatomic alignment of the left hip joint. No definite periprosthetic fracture evident. Total right hip arthroplasty without complication. Imaged pelvis grossly intact allowing for technical limitation. XR/XR pelvis 1-2V IMPRESSION: Reduction of left hip prosthetic dislocation. No definite fracture evident. Electronically signed by: Lamin Trejo MD 04/13/2025 08:41 AM EDT
--- NOTE | 2025-04-13 03:14 | ED.FALL ---
HPI - Fall General Chief Complaint: Fall Stated Complaint: Fall left hip pain Time Seen by Provider: 04/13/25 03:08 Source: patient and EMS Mode of arrival: EMS Limitations: no limitations History of Present Illness ED Provider: Dr. Olga Patricia HPI Narrative: Patient comes to the emergency room complaining of left-sided hip pain. Earlier today, patient was at home. Patient states that he was trying to get to the bathroom, he put his feet on the floor and states that the carpet was 2 slippery and then he slipped and fell onto his left hip. Patient denies hitting his head or losing consciousness. Patient states that he is no longer taking Lovenox injections. Patient had a hip replacement on the left in January of 2025. Patient now has bilateral hip replacements. Patient complaining of localized hip pain. Related Data Home Medications ?Medication ?Instructions ?Recorded ?Confirmed CPAP #1 ea 12/03/20 03/19/25 cholecalciferol (vitamin D3) 50 50 mcg PO DAILY 02/06/25 03/19/25 mcg (2,000 unit) capsule (Vitamin D3) gabapentin 600 mg tablet 600 mg PO BEDTIME 02/06/25 03/19/25 glucosamine HCl 1,500 mg tablet 1,500 mg PO BID 02/06/25 03/19/25 lactulose 10 gram/15 mL oral 20 g PO BID PRN Constipation 02/06/25 03/19/25 solution zsyufohngzih-molpqrem-bwzare 1 tab PO DAILY 02/06/25 03/19/25 tablet (Multivitamin 50 Plus tablet) mupirocin 2 % topical ointment 1 appl topical BID PRN Sores 02/06/25 03/19/25 neomycin-bacitracn Zn-polymyxn 3.5 1 appl topical QID PRN sores 02/06/25 03/19/25 mg-400 unit-5,000 unit top oint pkt (Neosporin(gpx-mga-dfuif)) Previous Rx's ?Medication ?Instructions ?Recorded fluticasone propionate 50 2 spray intranasal DAILY #3 ea 08/31/24 mcg/actuation nasal spray,suspension (Flonase Allergy Relief) semaglutide 2 mg/dose (8 mg/3 mL) 2 mg (0.75 mL) subcut QWEEK #3 ea 11/15/24 subcutaneous pen injector (Ozempic) lisinopril 5 mg tablet 5 mg PO DAILY #90 tabs 01/09/25 Held on 02/11/25. Instructions: 1 week and monitor Blood pressure if needed trazodone 100 mg tablet 100 mg PO BEDTIME 90 days #90 tabs 01/09/25 cyclobenzaprine 10 mg tablet 10 mg PO TID PRN pain #14 tabs 01/15/25 simvastatin 40 mg tablet 40 mg PO BEDTIME #90 tabs 01/23/25 enoxaparin 40 mg/0.4 mL 40 mg (0.4 mL) subcut DAILY 40 02/11/25 subcutaneous syringe days #16 mL Allergies Allergy/AdvReac Type Severity Reaction Status Date / Time terbinafine (From LAMISIL) AdvReac Intermediate GI UPSET Verified 04/13/25 03:06 Lamisil Allergy Unknown Stomach Uncoded 04/13/25 03:06 Upset Review of Systems Review of Systems: Constitutional : No Weight loss, No Fever, No Chills, No Night Sweats, No Fatigue, No Malaise ENT/Mouth : No Hearing loss, No Ear Pain, No Nasal Congestion, No Sinus Pain, No Hoarseness, No sore throat, No Rhinorrhea, No Swallowing Difficulty Eyes: No Eye Pain, No Swelling, No Redness, No Foreign Body, No Discharge, No Vision Changes Cardiovascular : No Chest Pain, No SOB, No Dyspnea on Exertion, No Orthopnea, No Edema, No Palpitations Respiratory : No Cough, No Sputum, No Wheezing, No Smoke Exposure, No Dyspnea Gastrointestinal : No Nausea, No Vomiting, No Diarrhea, No Constipation, No abdominal Pain, No Hematochezia, No Melena Genitourinary : no irregular bleeding, No Dysuria, No Urinary Frequency, No Hematuria, No Urinary Incontinence, No Urgency, No Flank Pain, No Urinary Flow Changes, No Hesitancy Musculoskeletal : Complaining of bilateral hip pain but much worse on the left Skin : No Skin Lesions, No rash Neuro : No Weakness, No Numbness, No Paresthesias, No Loss of Consciousness, No Dizziness, No Headache Psych : No Anxiety/Panic, No Depression, No SI/HI/AH/VH, No Social Issues, Heme/Lymph: No Bruising, No Bleeding,No Lymphadenopathy Endocrine : No Polyuria, No Polydipsia, No Temperature Intolerance PMFSH Past Medical History Medical History Lung nodule SOB (shortness of breath) on exertion Impacted cerumen of both ears Aortic dilatation Cholelithiasis Obstructive sleep apnea Erectile dysfunction Hypercholesterolemia Peripheral neuropathy Asthma Type 2 diabetes mellitus with hyperglycemia Chronic low back pain Hypertension Surgical History S/P ORIF (open reduction internal fixation) fracture History of left knee replacement History of total right knee replacement History of right hip replacement History of pericardiectomy H/O lumbar discectomy Family History Family History Mother Mental health disorder Social History Social History Household Members: Spouse Housing: House Do you presently have visiting nurse or other home services: No Alcohol intake: current Alcohol intake frequency: holidays/special occasions only Comment: COUNTS CORRECT Patient Tobacco Use Status: Former Tobacco user Tobacco use type: Cigarette Years Smoked: stopped 1995 Smoked in Last 30 Days: No e-Cigarette/Vaping Use: Never Used Second Hand Smoke Exposure: Yes Use of substances other than those prescribed or required for medical reasons: No Advance Directives: Yes Advance Directives on File: Yes Advance Directives Date on File: 12/26/21 Do you have a plan to hurt others: No Plan service: Yes Current occupational status: retired Cognitive needs: No Hearing needs: Yes Vision needs: Yes Physical Exam Exam: Exam: Appearance: Alert. Oriented X3. No acute distress. Eyes: Pupils equal, round and reactive to light. ENT: Pharynx normal. Neck: Normal inspection. Neck supple. No lymph nodes noted. No crepitus CVS: Normal heart rate and rhythm. Pulses normal. Normal S1 and S2 Respiratory: No respiratory distress. Breath sounds normal. No Wheezing. No rales Abdomen: Soft and nontender. No rigidity. No distention. Skin: Skin warm and dry. Normal skin color. Normal skin turgor. Extremities: No lower extremity edema. No Lacerations. No Rash patient's left hip is shortened and internally rotated. Neuro: Oriented X 3. No motor deficit. No sensory deficit. Moving all extremities. No slurred speech. CN 2 through 12 grossly intact Psych: calm, cooperative, normal affect Vital Signs: Vital Signs: Last Vital Signs Temp 100.7 F H 04/13/25 07:04 Pulse 103 H 04/13/25 08:02 Resp 13 04/13/25 08:02 BP 111/62 04/13/25 08:02 Pulse Ox 95 04/13/25 08:02 O2 Del Method Nasal Cannula 04/13/25 08:00 O2 Flow Rate 4 04/13/25 08:00 Oxygen Flow Rate 5 04/13/25 08:02 BMI result Body Mass Index 38.6 Course Course Course Narrative: Patient receiving p.o. oxycodone. X-rays pending Medications Administered Discontinued Medications Generic Name Dose Route Start Last Admin Trade Name Abielq PRN Reason Stop Dose Admin Morphine Sulfate 4 mg 04/13/25 04:55 04/13/25 05:31 Morphine Sulfate 4 Mg/Ml Cartridge IVPUSH 04/13/25 04:56 4 mg ONCE ONE Administration Protocol Oxycodone HCl 5 mg 04/13/25 03:28 04/13/25 04:25 Oxycodone Hcl Immed Release 5 Mg Tablet PO 04/13/25 03:29 5 mg ONCE ONE Administration Propofol 118.7 mg 04/13/25 06:56 04/13/25 07:54 Propofol 200 Mg/20 Ml Vial 1 mg/kg (118.7 mg) 04/13/25 06:57 118.7 mg IVPUSH Administration ONCE ONE Medical Decision Making Medical Decision Making [facility] Narrative: My interpretation of labs: No significant abnormality. X-ray of the hip shows superolateral dislocation of the acetabular component of the left hip prosthesis with respect to the [place] left acetabulum. There may be a small adjacent age indeterminate fracture CT scan of the hip does not show any fracture. I discussed the above-mentioned with the patient, patient agreeable to proceed with procedural sedation to reduce the hip Patient states that the last time he had anything to eat was a proximally 14 hours ago. Patient has signed the consent forms for both sedation and procedure Patient is a good candidate for sedation, we will go ahead and use propofol. I discussed the patient with Orthopedics, patient has a himi dislocation, posterior superior dislocation of the hip prosthetics. Per orthopedics recommendation, we will attempt reduction Patient received 1 milligram/kilogram of propofol, patient had oxygen desaturation in the 70s for which really required Ambu ventilation for approximately 15-20 seconds, oxygen saturation improved to the 90s, no bradycardia. The hip was successfully reduced. Per Orthopedics, no brace needed, they will reschedule his follow-up appointment sooner in the office. TRISTA Traore came down and spoke to the patient. Patient recovered uneventfully and is ready to be discharged. Differential Diagnosis Differential Diagnoses: The differential diagnosis associated with the presentation includes (Hip dislocation, fracture, contusion) Admission/Observation Consideration of admission/observation: Escalation of care including admission/observation considered Consult Healthcare Provider Management of the patient was discussed with: Manager Architectural Lab Data [facility] Lab Attestation statement: I reviewed the patient's lab results. 04/13/25 05:28 04/13/25 05:28 Labs: Lab Results 04/13/25 04/13/25 Range/Units 03:20 05:28 WBC 6.8 (4.8-10.8) X10*3/uL RBC 4.10 L (4.60-5.80) X10*6/uL Hgb 12.9 L (14.0-18.0) g/dl Hct 37.8 L (42.0-52.0) % MCV 92.2 (80.0-98.0) fL MCH 31.5 (27.0-33.0) pg MCHC 34.1 (31.0-36.0) g/dl RDW 13.6 (11.0-16.0) % Plt Count 144 L D (160-400) X10*3/uL MPV 9.0 L (9.4-12.4) fL Immature Gran % (Auto) 0.6 H (0.0-0.4) % Neut % (Auto) 81.8 H (45-73) % Lymph % (Auto) 3.1 L (20-40) % [place] % (Auto) 13.8 H (2-11) % Eos % (Auto) 0.1 (0-4) % Baso % (Auto) 0.6 (0-2) % Lymph # (Auto) 0.2 L (1.2-4.9) X10*3/uL [place] # (Auto) 0.9 (0.1-1.2) X10*3/uL Eos # (Auto) 0.0 (0.0-0.4) X10*3/uL Baso # (Auto) 0.0 (0.0-0.2) X10*3/uL Abs Immat Gran (auto) 0.04 H (0.00-0.03) X10*3/uL Absolute Neuts (auto) 5.6 (2.0-8.3) x10*3/uL Absolute Nucleated RBC 0.000 (0.0-0.012) X10*3/uL Nucleated RBC % (auto) 0.0 (0.0-0.2) /100WBC PT 11.6 (10.9-12.4) SEC INR 1.0 (0.9-1.1) Sodium 142 (135-145) mmol/L Potassium 4.6 (3.3-5.1) mmol/L Chloride 106 (96-108) mmol/L Carbon Dioxide 25 (22-29) mmol/L Anion Gap 16 (12-20) BUN 17 H (9-16) mg/dL Creatinine 1.31 (0.5-1.4) mg/dL Estim Creat Clear Calc 62.9 Estimated GFR 53 POC Glucose 146 H (60-115) mg/dL Random Glucose 152 H (60-115) mg/dL Calcium 8.9 (8.4-10.2) mg/dL Blood Type A Positive Antibody Screen NEGATIVE Independent Interpretation I performed an independent interpretation of an: Plain X-Ray and CT Scan Radiology Impression Discussion of test interpretation with radiology: I have reviewed the radiologist's reading. Radiologist Impression: Reduction of left hip prosthetic dislocation. There is anatomic alignment of the left hip joint. No definite periprosthetic fracture evident. Total right hip arthroplasty without complication. Imaged pelvis grossly intact allowing for technical limitation. XR/XR pelvis 1-2V IMPRESSION: Reduction of left hip prosthetic dislocation. No definite fracture evident. There is posterosuperior dislocation of the hip prosthesis. There is heterotopic ossification adjacent to the greater and lesser trochanters. IMPRESSION: Posterior superior dislocation of hip prosthesis Critical Care Time Critical Care Time Critical Care Time: Yes Total Critical Care Time: 90 Attestation: I have personally provided critical care time. Time includes review of lab data, radiology results, discussion with consultants, and monitoring for potential decompensation. Intervention performed as documented. Discharge Plan Discharge Clinical Impression: Dislocation of hip, left, closed Patient Disposition: Home, Self-Care Instructions: Hip Dislocation (ED) Additional Instructions: Please, no bending at the hip past 90 degrees, no crossing the legs, no internal rotation of the left leg. Please follow-up with your primary care physician tomorrow. If you have any worsening or new symptoms, please return to the emergency room or call 911 Prescriptions: No Action fluticasone propionate [Flonase Allergy Relief] 50 mcg/actuation spray,suspension 2 spray intranasal DAILY Qty: 3 3RF Rx Instructions: administer into each nostril Ozempic 2 mg/dose (8 mg/3 mL) pen injector 2 mg subcut QWEEK Qty: 3 3RF trazodone 100 mg tablet 100 mg PO BEDTIME 90 Days Qty: 90 3RF lisinopril 5 mg tablet 5 mg PO DAILY Qty: 90 3RF cyclobenzaprine 10 mg tablet 10 mg PO TID PRN (Reason: pain) Qty: 14 0RF simvastatin 40 mg tablet 40 mg PO BEDTIME Qty: 90 3RF Multivitamin 50 Plus Tablet 1 tab PO DAILY glucosamine HCl 1,500 mg Tablet 1,500 mg PO BID Rx Instructions: administer with a meal cholecalciferol (vitamin D3) [Vitamin D3] 50 mcg (2,000 unit) Capsule 50 mcg PO DAILY gabapentin 600 mg tablet 600 mg PO BEDTIME mupirocin 2 % ointment 1 appl topical BID PRN (Reason: Sores) lactulose 10 gram/15 mL Solution 20 g PO BID PRN (Reason: Constipation) Neosporin ([id number]) 3.5-400-5,000 [id number] Ointment In Packet 1 appl TOPICAL QID PRN (Reason: sores) enoxaparin 40 mg/0.4 mL syringe 40 mg subcut DAILY 40 Days Qty: 16 0RF (DME) CPAP 0 .Route .MEDSUPPLY Qty: 1 Print Language: Iranian
[2025-04-13 03:24] LABS: Glucose, Whole Blood 146 mg/dL (60-115)
[2025-04-13] MEDS: oxyCODONE HCl Immed Release 5 MG TABLET PO (04:25)
[2025-04-13 05:32] LABS: MANUAL DIFF FLAG NO
[2025-04-13 05:33] LABS: Hematocrit 37.8 % (42.0-52.0); Hemoglobin 12.9 g/dl (14.0-18.0); Imm Gran Abs Auto 0.04 X10*3/uL (0.00-0.03); Imm Gran Pct Auto 0.6 % (0.0-0.4); Lymphocytes Absolute Auto 0.2 X10*3/uL (1.2-4.9); Mean Corpuscular HGB Conc 34.1 g/dl (31.0-36.0); Mean Corpuscular Hemoglobin 31.5 pg (27.0-33.0); Mean Corpuscular Volume 92.2 fL (80.0-98.0); NRBC Abs Auto 0.000 X10*3/uL (0.0-0.012); NRBC Pct Auto 0.0 /100WBC (0.0-0.2); Platelet Count 144 X10*3/uL (160-400); Red Blood Count 4.10 X10*6/uL (4.60-5.80); White Blood Count 6.8 X10*3/uL (4.8-10.8)
[2025-04-13 05:39] LABS: INTERNATIONAL NORM RATIO 1.0 (0.9-1.1); Prothrombin Time 11.6 SEC (10.9-12.4)
[2025-04-13 05:44] LABS: Anion Gap 16 (12-20); Blood Urea Nitrogen 17 mg/dL (9-16); Calcium 8.9 mg/dL (8.4-10.2); Carbon Dioxide 25 mmol/L (22-29); Chloride 106 mmol/L (96-108); Creatinine Clr Calc Pharmacy 62.9; Estimated Glomerular Filt Rate 53; Potassium 4.6 mmol/L (3.3-5.1); Sodium 142 mmol/L (135-145)
== END 2025-04-13 10:30 | disposition home or self-care (01) ==
PROVIDERS: Emergency Provider Emergency Medicine; PCP Internal Medicine
DX: S73.005A Unspecified dislocation of left hip, initial encounter (principal); W01.0XXA Fall on same level from slipping, tripping and stumbling without subsequent striking against object, initial encounter; Y93.9 Activity, unspecified; Y92.009 Unspecified place in unspecified non-institutional (private) residence as the place of occurrence of the external cause; Y99.9 Unspecified external cause status; M25.552 Pain in left hip; Z96.643 Presence of artificial hip joint, bilateral; G47.33 Obstructive sleep apnea (adult) (pediatric); E11.65 Type 2 diabetes mellitus with hyperglycemia; I10 Essential (primary) hypertension; Z79.899 Other long term (current) drug therapy; J45.909 Unspecified asthma, uncomplicated; Z79.85 Long-term (current) use of injectable non-insulin antidiabetic drugs; Z87.891 Personal history of nicotine dependence; Z51.81 Encounter for therapeutic drug level monitoring
CPT/HCPCS: 36415; 72170; 73501; 73502; 73700; 80048; 82947; 85025; 85610; 86850; 86900; 86901; 96374; 96375; 99284; 99291; 99292; J2270; J2704

== ENCOUNTER → 2025-04-13 03:09 | Outpatient (BNV) | payer MEDICARE, SELFPAY | PROVIDERS: Emergency Provider Emergency Medicine; Visit Provider Radiology Diagnostic Radiology | DX: T84.021A Dislocation of internal left hip prosthesis, initial encounter (principal) | CPT/HCPCS: 72170 ==

== ENCOUNTER 2025-04-13 18:06 | Inpatient (IN) | payer MEDICARE, SELFPAY ==
--- OUTSIDE RECORDS SUMMARY | 2025-02-23 03:14 | XMS_ITS | Continuity of Care Document ---
Author Name [facility] Organization [facility] Care Team Providers Care Podiatry Professor Name Role Phone [facility] Unavailable Unavailable Problems Combined list of problems from 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 It does not include entries that were removed or entered in error. Problem Status Onset Date Problem Type Date of Resolution Comments Source Hypercholesterolemia Active 019 Condition Feb 14, 2019 Entered By: ALECIA WOOD Comment: treated with medication [facility] Impaired fasting glycaemia (SN[place] [id number]) Active 014 Condition [facility] Tremor Active 010 Condition [facility] Disc Disease Active 009 Condition [facility] Diabetes Mellitus Type 2 ([facility] [id number]) Active Condition [facility] [...] NEEDED FOR DRY EYE OPHTHA LMIC 12/23/2024 [id number] Rocky LOWRY 2023 15 [facility] METFORMIN HCL TAB,ORAL TAKE BY MOUTH TWICE DAILY ORAL ACTIVE Rocky LOWRY 2018 [facility] SIMVASTATIN 20MG TAB TAKE ONE-HALF TABLET BY MOUTH AT BEDTIME ORAL ACTIVE JOSH WOOD 2023 [facility] Immunizations Combined list of available immunizations from the 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 Immunization Series Date Given Administered By Site Reaction Lot Number CVX Code Drug Plugger Status Comments Source INFLUENZA, UNSPECIFIED FORMULATION 2021 88 complet ed HISTORICA L INFORMATI ON - FROM PATIENT'S RECALL, [facility] COVID-19 (PFIZER), MRNA, LNP-S, PF, 30 MCG/0.3 ML DOSE 3 2020 208 complet ed HISTORICA L INFORMATI ON - FROM PATIENT'S WRITTEN RECORD, [facility] COVID-19 (PFIZER), MRNA, LNP-S, PF, 30 MCG/0.3 ML DOSE 2 2020 208 complet ed HISTORICA L INFORMATI ON - FROM PATIENT'S WRITTEN RECORD, Lot#: [id number] [facility] COVID-19 (PFIZER), MRNA, LNP-S, PF, 30 MCG/0.3 ML DOSE 1 2020 208 complet ed HISTORICA L INFORMATI ON - FROM PATIENT'S WRITTEN RECORD, Lot#: [id number] [facility] INFLUENZA, UNSPECIFIED FORMULATION 2019 88 complet ed [facility] INFLUENZA, SEASONAL, INJECTABLE 2018 141 complet ed [facility] INFLUENZA, SEASONAL, INJECTABLE 2016 141 complet ed [facility] FLU,3 YRS (HISTORICAL) 2015 88 complet ed [facility] FLU[facility]3 YRS (HISTORICAL) 2014 [...] PM Reporting Lab: [facility] [address] [address] Performing Lab: [facility] [address] [facility] [address] [facility] LIVER FUNCTION ALBUMIN [MASS/VOLU ME] IN SERUM OR PLASMA 3.7 g/dL 3.5 - 5.0 02/07 Specimen Type: SERUM No comment entered. Ordering Provider: LATRICIA WOOD Report Released Date/Time: February 06, 2024 07:32 PM Reporting Lab: [facility] [address] [facility] [address] Performing Lab: [facility] [facility] [address] [facility] [address] [facility] LIVER FUNCTION ALKALINE PHOSPHATAS E [ENZYMATIC ACTIVITY/V OLUME] IN SERUM OR PLASMA 41 U/L 40 - 150 02/07 Specimen Type: SERUM No comment entered. Ordering Provider: LATRICIA WOOD Report Released Date/Time: February 06, 2024 07:32 PM Reporting Lab: [facility] [facility] [address] [facility] [address] Performing Lab: [facility] [place] [facility] [address] [facility] [address] [facility] LIVER FUNCTION ASPARTATE AMINOTRANS FERASE [ENZYMATIC ACTIVITY/V OLUME] IN SERUM OR PLASMA 18 U/L 5 - 34 02/07 Specimen Type: SERUM No comment entered. Ordering Provider: LATRICIA WOOD Report Released Date/Time: February 06, 2024 07:32 PM Reporting Lab: [facility] [address] [facility] [address] Performing Lab: [facility] [address] [facility] [address] [facility] LIVER FUNCTION ALANINE AMINOTRANS FERASE [ENZYMATIC ACTIVITY/V OLUME] IN SERUM OR PLASMA 21 U/L 02/07 Specimen Type: SERUM No comment entered. Ordering Provider: LATRICIA WOOD Report Released Date/Time: February 06, 2024 07:32 PM Reporting Lab: [facility] [facility] [address] [facility] [address] Performing Lab: [facility] [place] [facility] [address] [facility] [address] [facility] [place] [facility] LIVER FUNCTION BILIRUBIN. TOTAL [MASS/VOLU ME] IN SERUM OR PLASMA 0.8 mg/dL 0.2 - 1.2 02/07 Specimen Type: SERUM No comment entered. Ordering Provider: LATRICIA WOOD Report Released Date/Time: February 06, 2024 07:32 PM Reporting Lab: [facility] [place] [facility] [address] [facility] [address] Performing Lab: [facility] [address] [facility] [address] [facility] BASIC METABOLI C PANEL (fasting ) UREA NITROGEN [MASS/VOLU ME] IN SERUM OR PLASMA 14 mg/dL 7 - 25 02/07 Specimen Type: SERUM No comment entered. Ordering Provider: LATRICIA WOOD Report Released Date/Time: February 06, 2024 07:32 PM Reporting Lab: [facility] [place] [facility] [address] [facility] [address] Performing Lab: [facility] [place] [facility] [address] [facility] [address] [facility] BASIC METABOLI C PANEL (fasting ) GLUCOSE [MASS/VOLU ME] IN SERUM OR PLASMA 126 mg/dL 65 - 100 02/07 H Specimen Type: SERUM No comment entered. Ordering Provider: LATRICIA WOOD Report Released Date/Time: February 06, 2024 07:32 PM Reporting Lab: [facility] [place] [facility] [address] [facility] [address] Performing Lab: [facility] [place] [facility] [address] [facility] [address] [facility] [place] [facility] BASIC METABOLI C PANEL (fasting ) SODIUM [MOLES/VOL UME] IN SERUM OR PLASMA 140 mmol/L 135 - 145 02/07 Specimen Type: SERUM No comment entered. Ordering Provider: LATRICIA WOOD Report Released Date/Time: February 06, 2024 07:32 PM Reporting Lab: [facility] [address] [address] Performing Lab: [facility] [place] [facility] [address] [facility] [address] [facility] [facility] BASIC METABOLI C PANEL (fasting ) POTASSIUM [MOLES/VOL UME] IN SERUM OR PLASMA 4.9 mmol/L 3.5 - 5.0 02/07 Specimen Type: SERUM No comment entered. Ordering Provider: LATRICIA WOOD Report Released Date/Time: February 06, 2024 07:32 PM Reporting Lab: [facility] [place] [address] [address] Performing Lab: [facility] [place] [address] [address] [facility] [place] [facility] BASIC METABOLI C PANEL (fasting ) CHLORIDE [MOLES/VOL UME] IN SERUM OR PLASMA 105 mmol/L 100 - 110 02/07 Specimen Type: SERUM No comment entered. Ordering Provider: LATRICIA WOOD Report Released Date/Time: February 06, 2024 07:32 PM Reporting Lab: [facility] [address] [address] Performing Lab: [facility] [place] [address] [address] [facility] [facility] BASIC METABOLI C PANEL (fasting ) CARBON DIOXIDE, TOTAL [MOLES/VOL UME] IN SERUM OR PLASMA 25 meq/L 20 - 30 02/07 Specimen Type: SERUM No comment entered. Ordering Provider: LATRICIA WOOD Report Released Date/Time: February 06, 2024 07:32 PM Reporting Lab: [facility] [place] [address] [address] Performing Lab: [facility] [place] [address] [address] [facility] [facility] BASIC METABOLI C PANEL (fasting ) CREATININE [MASS/VOLU ME] IN SERUM OR PLASMA 1.10 mg/dL 0.50 - 1.40 02/07 Specimen Type: SERUM No comment entered. Ordering Provider: LATRICIA WOOD Report Released Date/Time: February 06, 2024 07:32 PM Reporting Lab: [facility] [place] [address] [address] Performing Lab: [facility] [address] [address] [facility] [place] [facility] BASIC METABOLI C PANEL (fasting ) GLOMERULAR FILTRATION RATE/1.73 SQ M.PREDICTE D [VOLUME RATE/AREA] IN SERUM, PLASMA OR BLOOD BY CREATININE -BASED FORMULA (CKD-EPI 2020) 70 mL/min 60 02/07 Specimen Type: SERUM No comment entered. Ordering Provider: LATRICIA WOOD Report Released Date/Time: February 06, 2024 07:32 PM Reporting Lab: [facility] [place] [address] Performing Lab: [facility] [place] [address] [address] [facility] CBC AND DIFF (AUTO) LEUKOCYTES [#/VOLUME] IN BLOOD BY AUTOMATED COUNT 6.68 10*3/uL 4.50 - 11.00 02/07 Specimen Type: BLOOD No comment entered. Ordering Provider: LATRICIA WOOD Report Released Date/Time: February 06, 2024 07:32 PM Reporting Lab: [facility] [place] [address] [address] Performing Lab: [facility] [address] [address] [facility] [place] [facility] CBC AND DIFF (AUTO) ERYTHROCYT ES [#/VOLUME] IN BLOOD BY AUTOMATED COUNT 4.23 10*6/uL 4.23 - 5.66 02/07 Specimen Type: BLOOD No comment entered. Ordering Provider: LATRICIA WOOD Report Released Date/Time: February 06, 2024 07:32 PM Reporting Lab: [facility] [place] [facility] [address] [facility] [address] Performing Lab: [facility] [address] [facility] [address] [facility] [place] [facility] CBC AND DIFF (AUTO) HEMOGLOBIN [MASS/VOLU ME] IN BLOOD 13.7 g/dL 12.8 - 17 02/07 Specimen Type: BLOOD No comment entered. Ordering Provider: LATRICIA WOOD Report Released Date/Time: February 06, 2024 07:32 PM Reporting Lab: [facility] [place] [facility] [address] [facility] [address] Performing Lab: [facility] [place] [facility] [address] [facility] [address] [facility] [place] [facility] CBC AND DIFF (AUTO) HEMATOCRIT [VOLUME FRACTION] OF BLOOD BY AUTOMATED COUNT 40.4 39.2 - 50.4 02/07 Specimen Type: BLOOD No comment entered. Ordering Provider: LATRICIA WOOD Report Released Date/Time: February 06, 2024 07:32 PM Reporting Lab: [facility] [place] [facility] [address] [facility] [address] Performing Lab: [facility] [place] [facility] [address] [facility] [address] [facility] [place] [facility] CBC AND DIFF (AUTO) MCV [ENTITIC VOLUME] BY AUTOMATED COUNT 95.5 fL 82 - 99 02/07 Specimen Type: BLOOD No comment entered. Ordering Provider: LATRICIA WOOD Report Released Date/Time: February 06, 2024 07:32 PM Reporting Lab: [facility] [place] [facility] [address] [facility] [address] Performing Lab: [facility] [place] [facility] [address] [facility] [address] [facility] [place] [facility] CBC AND DIFF (AUTO) MCHC [MASS/VOLU ME] BY AUTOMATED COUNT 33.9 g/dL 30.8 - 35.1 02/07 Specimen Type: BLOOD No comment entered. Ordering Provider: LATRICIA WOOD Report Released Date/Time: February 06, 2024 07:32 PM Reporting Lab: [facility] [address] [facility] [address] Performing Lab: [facility] [address] [facility] [address] [facility] CBC AND DIFF (AUTO) PLATELETS [#/VOLUME] IN BLOOD BY AUTOMATED COUNT 196 10*3/uL 140 - 360 02/07 Specimen Type: BLOOD No comment entered. Ordering Provider: LATRICIA WOOD Report Released Date/Time: February 06, 2024 07:32 PM Reporting Lab: [facility] [place] [facility] [address] [facility] [address] Performing Lab: [facility] [place] [facility] [address] [facility] [address] [facility] [place] [facility] CBC AND DIFF (AUTO) ERYTHROCYT E DISTRIBUTI ON WIDTH [RATIO] BY AUTOMATED COUNT 12.6 12.0 - 16.0 02/07 Specimen Type: BLOOD No comment entered. Ordering Provider: LATRICIA WOOD Report Released Date/Time: February 06, 2024 07:32 PM Reporting Lab: [facility] [place] [facility] [address] [facility] [address] Performing Lab: [facility] [address] [facility] [address] [facility] [place] CBC AND DIFF (AUTO) MONOCYTES [#/VOLUME] IN BLOOD BY AUTOMATED COUNT 0.73 10*3/uL 0.30 - 1.10 02/07 Specimen Type: BLOOD No comment entered. Ordering Provider: LATRICIA WOOD Report Released Date/Time: February 06, 2024 07:32 PM Reporting Lab: [facility] [address] [facility] [address] Performing Lab: [facility] [place] [facility] [address] [facility] [address] [facility] CBC AND DIFF (AUTO) MCH [ENTITIC MASS] BY AUTOMATED COUNT 32.4 pg 26.2 - 32.6 02/07 Specimen Type: BLOOD No comment entered. Ordering Provider: LATRICIA WOOD Report Released Date/Time: February 06, 2024 07:32 PM Reporting Lab: [facility] [address] [facility] [address] Performing Lab: [facility] [address] [facility] [address] [facility] CBC AND DIFF (AUTO) NEUTROPHIL S/100 LEUKOCYTES IN BLOOD BY AUTOMATED COUNT 68.4 43.7 - 75.8 02/07 Specimen Type: BLOOD No comment entered. Ordering Provider: LATRICIA WOOD Report Released Date/Time: February 06, 2024 07:32 PM Reporting Lab: [facility] [address] [facility] [address] Performing Lab: [facility] [address] [facility] [address] [facility] CBC AND DIFF (AUTO) LYMPHOCYTE S/100 LEUKOCYTES IN BLOOD BY AUTOMATED COUNT 16.6 14.0 - 42.3 02/07 Specimen Type: BLOOD No comment entered. Ordering Provider: LATRICIA WOOD Report Released Date/Time: February 06, 2024 07:32 PM Reporting Lab: [facility] [address] [facility] [address] Performing Lab: [facility] [address] [facility] [address] [facility] CBC AND DIFF (AUTO) MONOCYTES/ 100 LEUKOCYTES IN BLOOD BY AUTOMATED COUNT 10.9 5.1 - 13.7 02/07 Specimen Type: BLOOD No comment entered. Ordering Provider: LATRICIA WOOD Report Released Date/Time: February 06, 2024 07:32 PM Reporting Lab: [facility] [address] [facility] [address] Performing Lab: [facility] [address] [facility] [address] [facility] CBC AND DIFF (AUTO) EOSINOPHIL S/100 LEUKOCYTES IN BLOOD BY AUTOMATED COUNT 3.1 0.4 - 6.8 02/07 Specimen Type: BLOOD No comment entered. Ordering Provider: LATRICIA WOOD Report Released Date/Time: February 06, 2024 07:32 PM Reporting Lab: [facility] [place] [address] [address] Performing Lab: [facility] [place] [address] [address] [facility] [place] [facility] CBC AND DIFF (AUTO) BASOPHILS/ 100 LEUKOCYTES IN BLOOD BY AUTOMATED COUNT 0.7 0.1 - 2.0 02/07 Specimen Type: BLOOD No comment entered. Ordering Provider: LATRICIA WOOD Report Released Date/Time: February 06, 2024 07:32 PM Reporting Lab: [facility] [place] [address] [address] Performing Lab: [facility] [place] [address] [address] [facility] [place] [facility] CBC AND DIFF (AUTO) NEUTROPHIL S [#/VOLUME] IN BLOOD BY AUTOMATED COUNT 4.56 10*3/uL 2.20 - 7.60 02/07 Specimen Type: BLOOD No comment entered. Ordering Provider: LATRICIA WOOD Report Released Date/Time: February 06, 2024 07:32 PM Reporting Lab: [facility] [place] [address] [address] Performing Lab: [facility] [place] [address] [address] [facility] [place] [facility] CBC AND DIFF (AUTO) LYMPHOCYTE S [#/VOLUME] IN BLOOD BY AUTOMATED COUNT 1.11 10*3/uL 1.00 - 3.20 02/07 Specimen Type: BLOOD No comment entered. Ordering Provider: LATRICIA WOOD Report Released Date/Time: February 06, 2024 07:32 PM Reporting Lab: [facility] [place] [address] [address] Performing Lab: [facility] [place] [facility] [address] [facility] [address] [facility] [place] [facility] CBC AND DIFF (AUTO) EOSINOPHIL S [#/VOLUME] IN BLOOD BY AUTOMATED COUNT 0.21 10*3/uL 0.03 - 0.44 02/07 Specimen Type: BLOOD No comment entered. Ordering Provider: LATRICIA WOOD Report Released Date/Time: February 06, 2024 07:32 PM Reporting Lab: [facility] [place] [facility] [address] [facility] [address] Performing Lab: [facility] [address] [facility] [address] [facility] [place] [facility] CBC AND DIFF (AUTO) BASOPHILS [#/VOLUME] IN BLOOD BY AUTOMATED COUNT 0.05 10*3/uL 0.01 - 0.13 02/07 Specimen Type: BLOOD No comment entered. Ordering Provider: LATRICAI WOOD Report Released Date/Time: February 06, 2024 07:32 PM Reporting Lab: [facility] [place] [facility] [address] [facility] [address] Performing Lab: [facility] [place] [facility] [address] [facility] [address] [facility] [place] [facility] CBC AND DIFF (AUTO) IMMATURE GRANULOCYT ES/100 LEUKOCYTES IN BLOOD BY AUTOMATED COUNT 0.3 0.0 - 0.7 02/07 Specimen Type: BLOOD No comment entered. Ordering Provider: LATRICIA WOOD Report Released Date/Time: February 06, 2024 07:32 PM Reporting Lab: [facility] [place] [facility] [address] [facility] [address] Performing Lab: [facility] [place] [address] [address] [facility] [place] [facility] CBC AND DIFF (AUTO) IMMATURE GRANULOCYT ES [#/VOLUME] IN BLOOD 0.02 10*3/uL 0.00 - 0.06 02/07 Specimen Type: BLOOD No comment entered. Ordering Provider: LATRICIA WOOD Report Released Date/Time: February 06, 2024 07:32 PM Reporting Lab: [facility] [place] [facility] [address] [facility] [address] Performing Lab: [facility] [place] [facility] [address] [facility] [address] [facility] [place] [facility] TSH THYROTROPI N [UNITS/VOL UME] IN SERUM OR PLASMA 1.39 u[IU]/mL 0.35 - 5.00 02/07 Specimen Type: SERUM No comment entered. Ordering Provider: LATRICIA WOOD Report Released Date/Time: February 06, 2024 07:32 PM Reporting Lab: [facility] [place] [facility] [address] [facility] [address] Performing Lab: [facility] [place] [facility] [address] [facility] [address] [facility] [place] [facility] LIPID PANEL FASTING CHOLESTERO L [MASS/VOLU ME] IN SERUM OR PLASMA 162 mg/dL 02/07 Specimen Type: SERUM No comment entered. Ordering Provider: LATRICIA WOOD Report Released Date/Time: February 06, 2024 07:32 PM Reporting Lab: [facility] [place] [facility] [address] [facility] [address] Performing Lab: [facility] [place] [facility] [address] [facility] [address] [facility] [place] [facility] LIPID PANEL FASTING TRIGLYCERI DE [MASS/VOLU ME] IN SERUM OR PLASMA 112 mg/dL 0 - 150 02/07 Specimen Type: SERUM No comment entered. Ordering Provider: LATRICIA WOOD Report Released Date/Time: February 06, 2024 07:32 PM Reporting Lab: [facility] [place] [facility] [address] [facility] [address] Performing Lab: [facility] [place] [facility] [address] [facility] [address] [facility] [place] [facility] LIPID PANEL FASTING CHOLESTERO L IN LDL [MASS/VOLU ME] IN SERUM OR PLASMA BY CALCULATIO N 98 mg/dL 0 - 129 02/07 Specimen Type: SERUM No comment entered. Ordering Provider: LATRICIA WOOD Report Released Date/Time: February 06, 2024 07:32 PM Reporting Lab: [facility] [address] [address] Performing Lab: [facility] [address] [address] [facility] LIPID PANEL FASTING CHOLESTERO L.TOTAL/CH OLESTEROL IN HDL [MASS RATIO] IN SERUM OR PLASMA 3.9 02/07 Specimen Type: SERUM No comment entered. Ordering Provider: LATRICIA WOOD Report Released Date/Time: February 06, 2024 07:32 PM Reporting Lab: [facility] [address] [address] Performing Lab: [facility] [address] [address] [facility] LIPID PANEL FASTING CHOLESTERO L IN HDL [MASS/VOLU ME] IN SERUM OR PLASMA 42 mg/dL 40 - 60 02/07 Specimen Type: SERUM No comment entered. Ordering Provider: LATRICIA WOOD Report Released Date/Time: February 06, 2024 07:32 PM Reporting [facility]: [facility] [address] [address] Per[facility] [address] [address] [facility] HEMOGLOB IN A1C PANEL HEMOGLOBIN A1C/HEMOGL OBIN.TOTAL [...] PM Reporting Lab: [facility] [place] [facility] [address] [facility] [address] Performing Lab: [facility] [place] [facility] [address] [facility] [address] [facility] MICROALB UMIN CREATINI NE RATIO PANEL MICROALBUM IN/CREATIN INE [MASS RATIO] IN URINE 12.9 mg/g 0 - 29.9 02/07 Specimen Type: URINE No comment entered. Ordering Provider: LATRICIA WOOD Report Released Date/Time: February 06, 2024 07:32 PM Reporting Lab: [facility] [place] [facility] [address] [facility] [address] Performing Lab: [facility] [place] [facility] [address] [facility] [address] [facility] MICROALB UMIN CREATINI NE RATIO PANEL MICROALBUM IN [MASS/VOLU ME] IN URINE 1.4 mg/dL 02/07 Specimen Type: URINE No comment entered. Ordering Provider: LATRICIA WOOD Report Released Date/Time: February 06, 2024 07:32 PM Reporting Lab: [facility] [place] [facility] [address] [facility] [address] Performing Lab: [facility] [place] [facility] [address] [facility] [address] [facility] MICROALB UMIN CREATINI NE RATIO PANEL CREATININE [MASS/VOLU ME] IN URINE 108.66 mg/dL 02/07 Specimen Type: URINE No comment entered. Ordering Provider: LATRICIA WOOD Report Released Date/Time: February 06, 2024 07:32 PM Reporting Lab: [facility] [place] [facility] [address] [facility] [address] Performing Lab: [facility] [place] [facility] [address] [address] [facility] URINALYS IS CLEAN CATCH COLOR OF URINE Light-Ye llow 02/07 Specimen Type: URINE Comment: If Glucose = >500 and Ketones are positive, please alert the Physician. Ordering Provider: LATRICIA WOOD Report Released Date/Time: February 06, 2024 07:32 PM Reporting Lab: [facility] [place] [address] [facility] [address] Performing Lab: [facility] [address] [facility] [address] [facility] URINALYS IS CLEAN CATCH APPEARANCE OF URINE Clear 02/07 Specimen Type: URINE Comment: If Glucose = >500 and Ketones are positive, please alert the Physician. Ordering Provider: LATRICIA WOOD Report Released Date/Time: February 06, 2024 07:32 PM Reporting Lab: [facility] [address] [facility] [address] Performing Lab: [facility] [place] [facility] [address] [facility] [facility] [address] [facility] URINALYS IS CLEAN CATCH GLUCOSE [MASS/VOLU ME] IN URINE NEGATIVE mg/dL 02/07 Specimen Type: URINE Comment: If Glucose = >500 and Ketones are positive, please alert the Physician. Ordering Provider: LATRICIA WOOD Report Released Date/Time: February 06, 2024 07:32 PM Reporting Lab: [facility] [address] [facility] [address] Performing Lab: [facility] [address] [facility] [address] [facility] URINALYS IS CLEAN CATCH KETONES [MASS/VOLU ME] IN URINE BY TEST STRIP NEGATIVE mg/dL 02/07 Specimen Type: URINE Comment: If Glucose = >500 and Ketones are positive, please alert the Physician. Ordering Provider: LATRICIA WOOD Report Released Date/Time: February 06, 2024 07:32 PM Reporting Lab: [facility] [address] [facility] [address] Performing Lab: [facility] [address] [facility] [address] [facility] URINALYS IS CLEAN CATCH ERYTHROCYT ES [PRESENCE] IN URINE SEDIMENT BY LIGHT MICROSCOPY NEGATIVE mg/dL 02/07 Specimen Type: URINE Comment: If Glucose = >500 and Ketones are positive, please alert the Physician. Ordering Provider: LATRICIA WOOD Report Released Date/Time: February 06, 2024 07:32 PM Reporting Lab: [facility] [place] [facility] [address] [address] Performing Lab: [facility] [place] [address] [facility] [address] [facility] URINALYS IS CLEAN CATCH PROTEIN [MASS/VOLU ME] IN URINE BY TEST STRIP NEGATIVE mg/dL 02/07 Specimen Type: URINE Comment: If Glucose = >500 and Ketones are positive, please alert the Physician. Ordering Provider: LATRICIA WOOD Report Released Date/Time: February 06, 2024 07:32 PM Reporting Lab: [facility] [place] [facility] [address] [address] Performing Lab: [facility] [place] [facility] [address] [facility] [address] [facility] URINALYS IS CLEAN CATCH NITRITE [PRESENCE] IN URINE NEGATIVE mg/dL 02/07 Specimen Type: URINE Comment: If Glucose = >500 and Ketones are positive, please alert the Physician. Ordering Provider: LATRICIA WOOD Report Released Date/Time: February 06, 2024 07:32 PM Reporting Lab: [facility] [place] [address] [facility] [address] Performing Lab: [facility] [place] [facility] [address] [facility] [address] [facility] URINALYS IS CLEAN CATCH BILIRUBIN. TOTAL [PRESENCE] IN URINE NEGATIVE mg/dL 02/07 Specimen Type: URINE Comment: If Glucose = >500 and Ketones are positive, please alert the Physician. Ordering Provider: LATRICIA WOOD Report Released Date/Time: February 06, 2024 07:32 PM Reporting Lab: [facility] [place] [facility] [address] [address] Performing Lab: [facility] [place] [facility] [address] [facility] [address] [facility] [place] URINALYS IS CLEAN CATCH SPECIFIC GRAVITY OF URINE BY REFRACTOME TRY 1.018 1.016 - 1.022 02/07 Specimen Type: URINE Comment: If Glucose = >500 and Ketones are positive, please alert the Physician. Ordering Provider: LATRICIA WOOD Report Released Date/Time: February 06, 2024 07:32 PM Reporting Lab: [facility] [place] [facility] [address] [facility] [facility] [address] Performing Lab: [facility] [place] [address] [address] [facility] [place] [facility] URINALYS IS CLEAN CATCH PH OF URINE BY TEST STRIP 6.0 5.0 - 9.0 02/07 Specimen Type: URINE Comment: If Glucose = >500 and Ketones are positive, please alert the Physician. Ordering Provider: LATRICIA WOOD Report Released Date/Time: February 06, 2024 07:32 PM Reporting Lab: [facility] [place] [facility] [address] [address] Performing Lab: [facility] [place] [facility] [address] [facility] [facility] [address] [facility] [place] URINALYS IS CLEAN CATCH UROBILINOG EN [MASS/VOLU ME] IN URINE BY TEST STRIP <2.0mg/d L <2.0 - 2.0 02/07 Specimen Type: URINE Comment: If Glucose = >500 and Ketones are positive, please alert the Physician. Ordering Provider: LATRICIA WOOD Report Released Date/Time: February 06, 2024 07:32 PM Reporting Lab: [facility] [place] [facility] [address] [facility] [facility] [address] Performing Lab: [facility] [place] [facility] [address] [facility] [facility] [address] [facility] [place] URINALYS IS CLEAN CATCH LEUKOCYTE ESTERASE [PRESENCE] IN URINE BY TEST STRIP NEGATIVE 02/07 Specimen Type: URINE Comment: If Glucose = >500 and Ketones are positive, please alert the Physician. Ordering Provider: LATRICIA WOOD Report Released Date/Time: February 06, 2024 07:32 PM Reporting Lab: [facility] [address] [address] Performing Lab: [facility] [place] [facility] [address] [facility] [facility] [address] [facility] Encounters Combined list of: 1) Encounters from Department of [facility] Affairs facilities going backup to the last 18 months, not all [place] inpatient encounters are included; 2) Encounters from the Department of [facility] facilities going backup to 280 months. 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, low risk, bilater al HAILEY LOWRYE 12/22 [facility] [place] [facility] COMPRE OPH EXAM EST PT 1/> [id number] Diagnos is: ICD-10- CM E11.9 Type 2 diabete s mellitu s without complic ations HAILEY LOWRYE 12/22 [facility] [place] [place] [facility] FIT SPECTACLES MONOFOCAL [id number] Diagnos is: ICD-10- CM Z46.0 Encount er for fit/adj st of spectac les and contact lenses HAILEY LOWRYE 12/22 [facility] [place] [facility] OFFICE O/P EST LOW 20 MIN [id number] Diagnos is: ICD-10- CM E11.9 Type 2 diabete s mellitu s without complic ations MARINA WOOD RD 02/13 [facility] [facility] [place] [facility] Outpatient Encounter [id number] 02/17 [facility] [place] [facility] [place] [facility] Outpatient Encounter [id number] 02/22 [place] [facility] [place] [facility] Social History Combined list of available smoking, tobacco, and other social history from 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 Social History Type Response Date Comment Source Tobacco [facility] [place] [facility] History of tobacco use NM-TOBACCO FORMER USER 02/14/2024 [facility] [facility] History of tobacco use NM-TOBACCO FORMER USER 02/12/2023 [facility] [facility] History of tobacco use NM-TOBACCO FORMER USER 02/13/2022 [facility] [place] [facility] History of tobacco use NM-TOBACCO FORMER USER 02/11/2021 [facility] [facility] History of tobacco use NM-TOBACCO FORMER USER 12/22/2019 [facility] [place] [facility] of [facility] [place] [facility] History of tobacco use LIFETIME NON-TOBACCO USER 02/17/2018 [facility] [place] [facility] History of tobacco use QUIT TOBACCO USE > 7 YEARS AGO 03/02/2016 PT STATES HE STOPEED 20 YRS AGO. [facility] [place] [facility] History of tobacco use QUIT TOBACCO USE > 7 YEARS AGO 04/18/2010 [facility] [place] [facility] Plan of Care List of future care activities from Department of 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 Additional future care activities may be listed in the Assessment and Plan section. Date/Time Care Activity Care Activity Detail Facili ty 05/17/2025 AMBULATORY - MEDICINE AMBULATORY - MEDICI NE [facility] [place] [facility] Advance Directives List of completed, amended, or rescinded Advance Directives on record at Department of [facility] facilities. An actual copy of the Directive is not included. Date Advance Directive Provider Source 02/18/2024 ADVANCE DIRECTIVE ALECIA WOOD [place] [facility]
[2025-04-13] VITALS (12 sets, daily range): BP systolic 107–139; BP diastolic 40–83; PULSE 80–99; RESP 15–20; TEMP 36.7–37.6; O2SAT 92–100; BMI 38.6
--- NOTE | ~2025-04-13 | XR_ITS ---
EXAMINATION: XR PELVIS CLINICAL INFORMATION: revision lt hip vishal COMPARISON: None available. TECHNIQUE: AP view of the pelvis. FINDINGS: Bilateral total hip replacements are again identified and unchanged. There is cerclage wire around the right intertrochanteric region of the femur. Acetabular cup on the left appears more horizontally oriented than on the prior. Previously, the angle formed between the plane of the ischial tuberosities and acetabular cup measured 31 degrees, currently it measures 11 degrees. XR/XR pelvis 1-2V IMPRESSION: Suspected rotation of the left acetabular cup. Electronically signed by: Herbert Leija MD 04/17/2025 04:59 PM EDT
--- NOTE | ~2025-04-13 | XR_ITS ---
CLINICAL HISTORY: dislocation fx 3 view, pelvis and left hip Comparison: CR/SR - XR PELVIS 1-2 VIEWS - 04/13/25 08:18 EDT CR/SR - XR HIP 1 VIEW LEFT - 04/13/25 07:56 EDT Findings: No acute fracture is evident. Total left hip arthroplasty. The prosthesis is dislocated superiorly and laterally. No evidence for loosening. Total right hip arthroplasty appears unremarkable. Degenerative changes in the lower lumbar spine. IMPRESSION: Dislocated left hip prosthesis. This document has been electronically signed by: Marion Casas DO on 04/13/2025 19:18:04
--- NOTE | ~2025-04-13 | XR_ITS ---
CLINICAL HISTORY: post reduction 1 view, pelvis Comparison: CR - XR HIP LT W PEL1V - 04/13/25 18:39 EDT Findings: Bilateral total hip arthroplasties. No evidence for hardware loosening. No acute fracture or dislocation. Prominent arterial calcifications. IMPRESSION: 1. Satisfactory reduction of the dislocated left hip prosthesis. 2. No fracture identified. This document has been electronically signed by: Marion Casas DO on 04/13/2025 20:37:17
--- NOTE | 2025-04-13 18:56 | ED.GENADULT ---
HPI - General Adult General Chief complaint: Extremity Injury, Lower Stated complaint: FALL, HIP INJURY Time Seen by Provider: 04/13/25 18:25 Source: patient Limitations: no limitations History of Present Illness ED Provider: Candace Child PA-C HPI narrative: 74-year-old male with underlying gait instability who uses a walker to ambulate at baseline, now status post bilateral hip replacements, the most recent being the left January [address] Barreto, hypertension, hyperlipidemia, diabetes, morbid obesity who presents with left hip pain. Patient was seen in the middle of the night, found to have a left hip dislocation. He was discharged home. Patient states he slipped out of his chair, now unable to bear weight on the left. Related Data Home Medications ?Medication ?Instructions ?Recorded ?Confirmed CPAP #1 ea 12/03/20 03/19/25 cholecalciferol (vitamin D3) 50 50 mcg PO DAILY 02/06/25 04/13/25 mcg (2,000 unit) capsule (Vitamin D3) gabapentin 600 mg tablet 600 mg PO BEDTIME 02/06/25 04/13/25 lactulose 10 gram/15 mL oral 20 g PO BID PRN Constipation 02/06/25 04/13/25 solution rovzgghxghpg-fhqjuzfc-ymnfmc 1 tab PO DAILY 02/06/25 04/13/25 tablet (Multivitamin 50 Plus tablet) fluticasone propionate 50 2 spray intranasal BID PRN Nasal 04/13/25 04/13/25 mcg/actuation nasal Congestion spray,suspension furosemide 20 mg tablet 20 mg PO MOWEFR@0900 04/13/25 04/13/25 semaglutide 2 mg/dose (8 mg/3 mL) 2 mg subcut STRATTON 04/13/25 04/13/25 subcutaneous pen injector (Ozempic) Previous Rx's ?Medication ?Instructions ?Recorded lisinopril 5 mg tablet 5 mg PO DAILY #90 tabs 01/09/25 Held on 02/11/25. Instructions: 1 week and monitor Blood pressure if needed trazodone 100 mg tablet 100 mg PO BEDTIME 90 days #90 tabs 01/09/25 simvastatin 40 mg tablet 40 mg PO BEDTIME #90 tabs 01/23/25 Allergies Allergy/AdvReac Type Severity Reaction Status Date / Time terbinafine (From LAMISIL) AdvReac Intermediate GI UPSET Verified 04/13/25 18:22 Lamisil Allergy Unknown Stomach Uncoded 04/13/25 03:06 Upset Review of Systems Review of Systems: Yes all other systems are reviewed and are negative Constitutional: Constitutional: Denies fatigue and Denies fever(s) Musculoskeletal: Musculoskeletal: Reports arthralgias and Denies joint swelling Endocrine: Endocrine: Denies fatigue PMFSH Past Medical History Attestation statement: The following information was validated with the patient. Medical History Lung nodule SOB (shortness of breath) on exertion Impacted cerumen of both ears Aortic dilatation Cholelithiasis Obstructive sleep apnea Erectile dysfunction Hypercholesterolemia Peripheral neuropathy Asthma Type 2 diabetes mellitus with hyperglycemia Chronic low back pain Hypertension Surgical History S/P ORIF (open reduction internal fixation) fracture History of left knee replacement History of total right knee replacement History of right hip replacement History of pericardiectomy H/O lumbar discectomy Family History Family History Mother Mental health disorder Social History Social History Household Members: Spouse Housing: House Do you presently have visiting nurse or other home services: Yes Alcohol intake: current Alcohol intake frequency: holidays/special occasions only Comment: COUNTS CORRECT Patient Tobacco Use Status: Former Tobacco user Tobacco use type: Cigarette Years Smoked: stopped 1995 Smoked in Last 30 Days: No e-Cigarette/Vaping Use: Never Used Second Hand Smoke Exposure: Yes Use of substances other than those prescribed or required for medical reasons: No Currently Displaying Signs/Symptoms of Drug Intoxication Withdrawal: No Have you been hit, kicked, punched, or otherwise hurt by someone within the past year? If so, by whom?: No Do you feel safe in your current relationship?: No Is there a partner from a previous relationship who is making you feel unsafe now?: No Are you made to feel afraid or neglected: No Advance Directives: Yes Advance Directives on File: Yes Advance Directives Date on File: 12/26/21 Do you have a plan to hurt others: No Plan Recently lost weight without trying: No How much weight loss: Not applicable Eating poorly because of decreased appetite: No Nutrition screen score: 0 Nutrition Risks: No Nutritional Risk Poor oral hygiene: No service: Yes Current occupational status: retired Cognitive needs: No Hearing needs: Yes Vision needs: Yes Physical Exam ED Vital Signs: Vital Signs - 24 hr 04/13/25 18:20 04/13/25 19:02 04/13/25 19:36 Temperature 99.7 F 98.4 F Pulse Rate 94 92 Respiratory Rate 18 18 15 Blood Pressure 107/40 L 133/71 Pulse Oximetry 95 100 Oxygen Delivery Method Room Air 04/13/25 19:47 04/13/25 19:50 04/13/25 19:51 Temperature Pulse Rate 97 83 98 Respiratory Rate 15 15 15 Blood Pressure 137/66 121/67 Pulse Oximetry 100 100 92 Oxygen Delivery Method 04/13/25 20:03 04/13/25 20:08 04/13/25 20:13 Temperature 98.5 F 98.2 F 98.5 F Pulse Rate 99 91 95 Respiratory Rate 20 18 18 Blood Pressure 126/65 128/44 L 139/55 L Pulse Oximetry 99 92 95 Oxygen Delivery Method 04/13/25 20:28 Temperature 98.5 F Pulse Rate 98 Respiratory Rate 15 Blood Pressure 132/78 Pulse Oximetry 95 Oxygen Delivery Method BMI result Body Mass Index 38.6 Const Other: Alert Orientation/consciousness: patient oriented x3 Resp Effort & Inspection: normal respiratory effort Cardio Other: Normal peripheral perfusion Skin Other: Warm dry no rash Neuro General: patient oriented x3, no focal motor deficits and CN's II-XI intact bilaterally Extrem Other: The left lower extremity is shortened Psych Other: Cooperative Course Course Course Narrative: Dr. Farias: Pre procedural note at 19:34 The patient is a 74-year-old male with a history of left hip fracture in January of 2025 which was addressed with the hemiarthroplasty. He had a left hip dislocation of his hemiarthroplasty this morning that was reduced under procedural sedation this morning. He received 118 mg of propofol. After successful or closed reduction in the emergency department he was discharged. This afternoon he slid out of his recliner and had a redislocation of the same hip. No other significant injuries. He has a history of obesity, type 2 diabetes, hypertension, asthma, sleep apnea. He has no chest pain or shortness of breath currently. On exam he is awake and alert, pleasant and cooperative. He is an obese man with a BMI of 38. He has a Mallampati 2 exam of the mouth. He has good range of motion of the neck. Lungs are clear. Heart is regular. The left leg is shortened and externally rotated. Case was discussed with the Orthopedics with the plan for closed reduction in the emergency room followed by hospitalization. The patient will be given propofol and ketamine for sedation. [facility] Consultations Consultation #1: per León Macdonald PA-C from the orthopedic service, he is requesting that we reduce the dislocation, I am happy to do so. He will admit the patient given he is a bounce back and dislocated the same hip. Time: 18:58 Medications Administered Generic Name Dose Route Start Last Admin Trade Name Freq PRN Reason Stop Dose Admin Atorvastatin Calcium 20 mg 04/14/25 21:00 04/15/25 21:14 Atorvastatin Calcium 20 Mg Tablet PO 20 mg BEDTIME PRADIP Administration Fluticasone Propionate 2 spray 04/13/25 22:30 04/15/25 21:18 Fluticasone Propionate Nasal 16 Gm [place]erry NOSTRIL-B 2 spray BID PRN Administration Nasal Congestion Heparin Sodium (Porcine) 5,000 unit 04/14/25 09:30 04/15/25 17:41 Heparin Sodium,Porcine 5,000 Unit/Ml Vial SUBCUT 5,000 unit Q8H PRADIP Administration Insulin Human Lispro 0 unit 04/14/25 11:30 04/15/25 21:19 Insulin Lispro 100 Unit/Ml 3 Ml Vial SUBCUT Not Given QIDACHS [facility] Protocol Lactulose 20 gm 04/14/25 17:34 04/15/25 07:50 Lactulose 20 Gm/30 Ml Solution PO 20 gm BID PRN Administration Constipation Sodium Chloride 3 ml 04/14/25 00:00 04/15/25 21:14 0.9 % Sodium Chloride Flush 3 Ml Syringe IVFLUSH 3 ml QSHIFT PRADIP Administration Trazodone HCl 100 mg 04/15/25 13:59 04/15/25 21:14 Trazodone Hcl 100 Mg Tablet PO 100 mg BEDTIME PRN Administration Insomnia Discontinued Medications Generic Name Dose Route Start Last Admin Trade Name Freq PRN Reason Stop Dose Admin Sodium Chloride 1,000 mls @ 999 mls/hr 04/13/25 19:00 04/13/25 21:33 Ns IV 04/13/25 20:00 Infused .Q1H1M PRADIP Infusion Ketamine HCl 80 mg 04/13/25 19:19 04/13/25 19:47 Ketamine Hcl/Ns 50 Mg/5 Ml Syringe IVPUSH 04/13/25 19:20 80 mg ONCE ONE Administration Morphine Sulfate 4 mg 04/13/25 18:48 04/13/25 19:02 Morphine Sulfate 4 Mg/Ml Cartridge IVPUSH 04/13/25 18:49 4 mg ONCE ONE Administration Protocol Propofol 80 mg 04/13/25 19:19 04/13/25 19:47 Propofol 200 Mg/20 Ml Vial IVPUSH 04/13/25 19:20 80 mg ONCE ONE Administration Procedures Orthopedic Fracture Reduction Fracture #1: Fracture Reduction Location: other (I entered an error) Additional Comments: I entered an error there was no fracture Orthopedic Joint Reduction Joint #1: Time Out Performed: Yes Joint Reduction Location: hip Analgesia: procedural sedation Technique used: traction/counter-traction Post-reduction neuro exam: intact Post-reduction vascular: intact Post Reduction X-Ray Obtained: Yes Post Reduction X-Ray Results: reduced Splint Applied: No Patient Tolerated Procedure: well Procedural Sedation Indication: fracture/dislocation reduction ASA Class: III Mallampati Class: III Preparation: threat monitoring analyst applied, pulse oximeter, capnometry used, supplemental O2 applied, suction/airway equipment at bedside and IV secured Ketamine: IV Ketamine dose (mg): 80 IV Propofol dose (mg): 80 Patient Tolerated Procedure: well Complications: none Medical Decision Making Medical Decision Making MDM Narrative: 74-year-old male with underlying gait instability who uses a walker to ambulate at baseline, now status post bilateral hip replacements, the most recent being the left January [address] Barreto, hypertension, hyperlipidemia, diabetes, morbid obesity who presents with left hip pain. Patient was seen in the middle of the night, found to have a left hip dislocation. He was discharged home. Patient states he slipped out of his chair, now unable to bear weight on the left. Problem: Recent dislocation, diabetes, obesity History: Per patient I have considered the following differential diagnoses: Fracture, dislocation Plan: Based on my exam, the patient likely dislocated the hip, we will obtain x-rays. We will be screening labs in the event the patient requires admission. Giving morphine for pain. I have independently reviewed the following tests: Labs: No leukocytosis, not anemic, no electrolyte abnormality noted X-ray hip pelvis: Left Findings: No acute fracture is evident. Total left hip arthroplasty. The prosthesis is dislocated superiorly and laterally. No evidence for loosening. Total right hip arthroplasty appears unremarkable. Degenerative changes in the lower lumbar spine. IMPRESSION: Dislocated left hip prosthesis. Postreduction film: MPRESSION: 1. Satisfactory reduction of the dislocated left hip prosthesis. 2. No fracture identified. Lab Data 04/15/25 05:55 04/15/25 05:55 Labs: Lab Results 04/13/25 Range/Units 19:01 WBC 5.9 (4.8-10.8) X10*3/uL RBC 3.91 L (4.60-5.80) X10*6/uL Hgb 12.4 L (14.0-18.0) g/dl Hct 36.8 L (42.0-52.0) % MCV 94.1 (80.0-98.0) fL MCH 31.7 (27.0-33.0) pg MCHC 33.7 (31.0-36.0) g/dl RDW 13.9 (11.0-16.0) % Plt Count 144 L (160-400) X10*3/uL MPV 9.1 L (9.4-12.4) fL Immature Gran % (Auto) 0.5 H (0.0-0.4) % Neut % (Auto) 68.4 (45-73) % Lymph % (Auto) 5.8 L (20-40) % [place] % (Auto) 22.4 H (2-11) % Eos % (Auto) 2.4 (0-4) % Baso % (Auto) 0.5 (0-2) % Lymph # (Auto) 0.3 L (1.2-4.9) X10*3/uL [place] # (Auto) 1.3 H (0.1-1.2) X10*3/uL Eos # (Auto) 0.1 (0.0-0.4) X10*3/uL Baso # (Auto) 0.0 (0.0-0.2) X10*3/uL Abs Immat Gran (auto) 0.03 (0.00-0.03) X10*3/uL Absolute Neuts (auto) 4.0 (2.0-8.3) x10*3/uL Absolute Nucleated RBC 0.000 (0.0-0.012) X10*3/uL Nucleated RBC % (auto) 0.0 (0.0-0.2) /100WBC Smear Tech's Comments VERIFIED Sodium 137 (135-145) mmol/L Potassium 4.9 (3.3-5.1) mmol/L Chloride 103 (96-108) mmol/L Carbon Dioxide 27 (22-29) mmol/L Anion Gap 12 (12-20) BUN 21 H (9-16) mg/dL Creatinine 1.62 H (0.5-1.4) mg/dL Estim Creat Clear Calc 50.8 Estimated GFR 42 Random Glucose 130 H (60-115) mg/dL Calcium 9.1 (8.4-10.2) mg/dL Magnesium 1.9 (1.6-2.6) mg/dL Total Bilirubin 0.8 (0.0-1.0) mg/dL AST 41 H (5-37) U/L ALT 23 (0-40) U/L Alkaline Phosphatase 61 (39-117) U/L Total Protein 6.7 (6.5-8.0) g/dL Albumin 4.1 (3.5-5.0) g/dL Critical Care Time Critical Care Time Critical Care Time: Yes Total Critical Care Time: 30 Attestation: Jaspreet Child PA-C have personally performed 30 minutes of critical care time not including lines and procedures; procedural sedation for left hip dislocation requiring reduction Discharge Plan Discharge Clinical Impression: Dislocation of hip, left, closed Patient Disposition: Admitted As Inpatient Interventions: Admission Worksheet (ED) Last Done: 04/14/25 00:22 Discharge Date/Time: 04/14/25 01:46
[2025-04-13 19:07] LABS: Hematocrit 36.8 % (42.0-52.0); Hemoglobin 12.4 g/dl (14.0-18.0); Imm Gran Abs Auto 0.03 X10*3/uL (0.00-0.03); Imm Gran Pct Auto 0.5 % (0.0-0.4); Lymphocytes Absolute Auto 0.3 X10*3/uL (1.2-4.9); MANUAL DIFF FLAG SCAN; Mean Corpuscular HGB Conc 33.7 g/dl (31.0-36.0); Mean Corpuscular Hemoglobin 31.7 pg (27.0-33.0); Mean Corpuscular Volume 94.1 fL (80.0-98.0); NRBC Abs Auto 0.000 X10*3/uL (0.0-0.012); NRBC Pct Auto 0.0 /100WBC (0.0-0.2); Platelet Count 144 X10*3/uL (160-400); Red Blood Count 3.91 X10*6/uL (4.60-5.80); SCAN SMEAR FLAG 1; White Blood Count 5.9 X10*3/uL (4.8-10.8)
--- NOTE | 2025-04-13 19:08 | PC.NURSE ---
this rn assumed care of pt, pt medicated per nov for 6/10 left hip pain, fluids administering at this time, respirations even and unlabored
--- OUTSIDE RECORDS SUMMARY | 2025-04-13 19:21 | XMS_ITS | Patient Health Record ---
Author Organization [facility] [place] Address [address] [place] [address] Care Team Providers Care Framing Mechanic Name Role Phone Daniel Romano Primary Care Provider Chantel Smith Unavailable [phone] Chi Bynum Unavailable [phone] Rayshawn Avendaño Unavailable [phone] Allergies Allergen (clinical drug ingredient) Drug/Non Drug Allergy documented on EMR Reaction Allergy Type Onset Date Status Lamisil sick Drug Allergy Active Results Component Value Reference Range Notes HEMOGLOBIN A1C (GLYCOHEMOGLO BIN) Reviewed date:04/17/2024 08:07:32 AM Interpretation: Performing Lab: Notes/Report: HEMOGLOBIN A1C (HH) 5.5 HEMOGLOBIN A1C (GLYCOHEMOGLO BIN) Reviewed date:10/24/2024 08:55:41 AM Interpretation: Performing Lab: Notes/Report: HEMOGLOBIN A1C % (HH) 5.5 HEMOGLOBIN A1C (GLYCOHEMOGLO BIN) Reviewed date:03/28/2025 03:28:57 PM Interpretation: Performing Lab: Notes/Report: HEMOGLOBIN A1C % (HH) 5.1 Reason For Referral No Information Medications Medication SIG (Take, Route, Frequency, Duration) Notes Start Date End Date Status Ciclopirox Olamine 0.77 % 1 application to affected area Externally Twice a day to effected areas on feet; Duration: 30 days Active Aspirin 81 MG 1 tablet Orally Once a day Not-Taking Amoxicillin 500 MG 4pills Orally Prevent infection (dentist & surgery) PRN Active Ciclopirox Olamine 0.77 % 1 application to affected area Externally Twice a day to effected areas on feet; Duration: 30 days 04/17/2024 Active Glucosamine Active Ventolin HFA 108 (90 Base) MCG/ACT Inhalation PRN PRN Not-Taking Fluticasone Propionate 50 MCG/ACT 2 sprays (1 spray in each nostril) Nasally Once a day Active Ozempic (0.25 or 0.5 MG/DOSE) Once a week Not-Taking Lisinopril Active Tylenol 650mg 2 pills Not-Ta lul Gabapentin 600 MG Orally Bedtime Active flovent HFA prn Not-Taki ng Multivitamin Active metFORMIN HCl 500 MG Orally Twice a day Active Diflucan 200 MG 1 tablet Orally Once a week; Duration: 30 days Not-Taking Simvastatin 20 MG Orally Ac tive Ozempic Active Extra Depth Diabetic Shoes with 3 Pair Custom heat-molded multi-density innersoles for 1 year Dx: Active traZODone HCl 100 MG 1 tablet at bedtime Orally Once a day Active Immunizations Vaccine Route Administration Date Status Comme nts Influenza Unknown 06/02/2017 Administered Influenza Unknown 06/13/2018 Administered Influenza Unknown 2022 Administered Influenza Unknown 06/14/2023 Administered Influenza Unknown 06/13/2024 Administered Pneumococcal Unknown 05/22/2020 Administered COVID-19 Pfizer BioNTech Vaccine Unknown 2022 Administered 1st 11/25/20,12/16/20 06/17/21,12/29/21 Social History Tobacco Use: Social History Observation Description Date Details (start date - stop date) Never Smoker NA - NA Tobacco use other than smoking: Question Answer Notes Are you an other tobacco user? No Tobacco Control (Standard) Question Answer Notes Tobacco use: Nonsmoker Additional Findings: Tobacco non-user Current no nsmoker AUDIT-C (Standard) Question Answer Notes Did you have a drink containing alcohol in the p ast year? No Points 0 Interpretation Negative Problems Problem Type SNOMED Code ICD Code Onset Dates Problem Status W/U Status Risk Notes Problem Polyneuropathy due to type 2 diabetes mellitus (840066291) Type 2 diabetes mellitus with diabetic polyneuropathy (E11.42) Active confirmed Vital Signs Blood pressure diastolic 65 mm Hg 03/28/2025 Height 5ft 9.5in in 03/28/2025 Blood pressure systolic 128 mm Hg 03/28/2025 Weight 270 lbs 03/28/2025 BMI 39.3 kg/m2 03/28/2025 Procedures Procedure Date Ordered Date Performed Result Body Sit e 08096-ZQJOAKM NAIL, 6 OR MORE 07/19/2024 N/A 67944-BACR SKIN LESIONS, 2 TO 4 07/19/2024 N/A 42013-JIYUZRV NAIL, 6 OR MORE 10/24/2024 N/A 50167-VGJO SKIN LESIONS, 2 TO 4 10/24/2024 N/A 21237-JOLNGQY NAIL, 6 OR MORE 03/28/2025 N/A 33663-NMOH SKIN LESIONS, 2 TO 4 03/28/2025 N/A Encounters Encounter Location Date Provider Diagnosis [address] [address] 04/17/2024 Chi Bynum Tinea unguium B35.1 ; Ingrowing nail L60.0 ; Pain in right toe(s) M79.674 ; Pain in left toe(s) M79.675 ; Other hammer toe(s) (acquired), left foot M20.42 ; Other hammer toe(s) (acquired), right foot M20.41 ; Type 2 diabetes mellitus with diabetic polyneuropathy E11.42 ; Tinea pedis B35.3 and Xerosis cutis L85.[address] [address] 07/19/2024 Chantel Infante Type 2 diabetes mellitus with diabetic polyneuropathy E11.42 and Tinea unguium B35.[address] [address] 10/24/2024 Rayshawn Avendaño Type 2 diabetes mellitus with diabetic polyneuropathy E11.42 and Tinea unguium B35.[address] [address] 03/28/2025 Chantel Infante Type 2 diabetes mellitus with diabetic polyneuropathy E11.42 and Tinea unguium B35.[address] [address] 02/09/2025 Chantel Infante Assessments Encounter Date Diagnosis (ICD Code) Assessment Notes Treatment Notes Treatment Clinical Notes Section Notes 04/17/2024 Tinea unguium (ICD-10 - B35.1) 04/17/2024 Ingrowing nail (ICD-10 - L60.0) 07/19/2024 Type 2 diabetes mellitus with diabetic polyneuropathy (ICD-10 - E11.42) 07/19/2024 Tinea unguium (ICD-10 - B35.1) 10/24/2024 Type 2 diabetes mellitus with diabetic polyneuropathy (ICD-10 - E11.42) 03/28/2025 Type 2 diabetes mellitus with diabetic polyneuropathy (ICD-10 - E11.42) 03/28/2025 Tinea unguium (ICD-10 - B35.1) 10/24/2024 Tinea unguium (ICD-10 - B35.1) 04/17/2024 Pain in right toe(s) (ICD-10 - M79.674) 04/17/2024 Pain in left toe(s) (ICD-10 - M79.675) 04/17/2024 Other hammer toe(s) (acquired), left foot (ICD-10 - M20.42) 04/17/2024 Other hammer toe(s) (acquired), right foot (ICD-10 - M20.41) 04/17/2024 Type 2 diabetes mellitus with diabetic polyneuropathy (ICD-10 - E11.42) 04/17/2024 Tinea pedis (ICD-10 - B35.3) 04/17/2024 Xerosis cutis (ICD-10 - L85.3) Plan Of Treatment Pending Test Test Name Order Date *Liver Function Test (LFT) 12/16/2016 86140-HIEKXPK NAIL, 6 OR MORE 03/17/2017 22665-WMNDWOL NAIL, 6 OR MORE 06/16/2017 73164-DOXNULA NAIL, 6 OR MORE 09/15/2017 39247-JGJVWYZ NAIL, 6 OR MORE 12/15/2017 61557-FWNWZQU NAIL, 6 OR MORE 03/21/2018 49176-NSYJYLR NAIL, 6 OR MORE 06/27/2018 88855-QMWVLHN NAIL, 6 OR MORE 07/19/2024 93846-AWEGWIX NAIL, 6 OR MORE 10/24/2024 83944-FNYYJTQ NAIL, 6 OR MORE 03/28/2025 08922-TJKXFGZ NAIL, 6 OR MORE 12/16/2016 49384-MTLQ SKIN LESIONS, OVER 4 09/28/19 19 34794-KPVQ SKIN LESIONS, OVER 4 06/27/20 18 80737-GOCO SKIN LESIONS, OVER 4 03/21/20 18 39528-JSNK SKIN LESIONS, OVER 4 03/29/20 19 86528-FMYO SKIN LESIONS, OVER 4 07/03/20 19 20808-JAKX SKIN LESIONS, OVER 4 10/09/19 57619-BBVC SKIN LESIONS, OVER 4 01/10/20 20 36922-XGMG SKIN LESIONS, OVER 4 04/10/20 78075-JHJN SKIN LESIONS, OVER 4 07/10/20 18166-JXHC SKIN LESIONS, OVER 4 10/02/19 98984-DBXW SKIN LESIONS, OVER 4 01/02/20 86770-DJHT SKIN LESIONS, OVER 4 04/03/20 15180-PLZC SKIN LESIONS, OVER 4 07/16/20 32969-CJYE SKIN LESIONS, OVER 4 11/13/19 40225-ICRJ SKIN LESIONS, 2 TO 4 12/16/19 18 11348-KEHX SKIN LESIONS, 2 TO 4 01/05/20 19 00395-XABQ SKIN LESIONS, 2 TO 4 07/19/20 24 65575-GKME SKIN LESIONS, 2 TO 4 03/28/20 25 95183-SWJX SKIN LESIONS, 2 TO 4 10/24/19 25 36065-ZYJLPXVH OF HEMATOMA/FLUID 023 Next Appt Details Provider Name:Chantel cooper, 06/28/2025 03:45:00 PM, [address] [facility], [place], [address], Insurance Providers Payer Name Payer Address Payer Phone Subscriber Number Group Number Insured Name Patient Relationship to Insured Coverage Start Date Coverage End Date Medicare National Govt Sv[employer] [address] [place] [address] [id number] Alexander Festus Self - patient is the insured 2 [employer] [address] [place] [address] [id number] Alexander Festus Self - patient is the insured Medical (General) History Medical History History ICD Code Arthritis Back,Hip,and Knee pain Broken bones Measles Mumps Chicken pox Joint implants/screws COPD type II diabetes Surgical History Surgery Date(Month/Year) total right hip replacement 07/13/2014 right knee replacement 07/31/2015 Total left knee replacement 11/13/2015 femur 08/11/2016 Full Pericardiectomy 08/14/1998 Hospitalization History Reason Date(Month/Year)
--- OUTSIDE RECORDS SUMMARY | 2025-04-13 19:21 | XMS_ITS | Patient Health Record ---
Author Organization [facility] Address [address] [place] [address] Care Team Providers Care Supervisor Decorating Name Role Phone Daniel Romano MD Primary Care Provider Mac Rose [phone] Allergies Allergen (clinical drug ingredient) Drug/Non Drug [...] Problem Status W/U Status Risk Notes Problem [id number] Encounter for screening for malignant neoplasm of colon (Z12.11) Active confirmed Problem [id number] Aspirin long-term use (Z79.82) Active confirmed Problem 98732497 Hypertension, unspecified type (I10) Active confirmed Plan Of Treatment Future Test Test Name Order Date COLONOSCOPY 12/30/2017 Insurance Providers Payer Name Payer Address Payer Phone Subscriber Number Group Number Insured Name Patient Relationship to Insured Coverage Start Date Coverage End Date MEDICARE OF [place] [address] [place] [id number] VEE SAL Self - patient is the insured MEDICAID OF [facility] [address] [place] [address] [id number] VEE SAL Self - patient is the insured Medical (General) History Medical History History ICD Code Denies NM,CVA,renal disease COPD NIDDM Neuropathy in feet Sleep apnea--uses CPAP Negative colonoscopies in 31 12 and 2006 other than diverticulosis and internal hemorrhoids Surgical History Surgery Date(Month/Year) Left knee replacement 2015 Right knee replacement 2014 Right hip replacement 2013 Metal plates due to femur surgery 2016 Pericarditis with pericardectomy in the Rectal fistula Lumbar disc
[2025-04-13 19:23] LABS: Alanine Aminotransferase 23 U/L (0-40); Albumin Level 4.1 g/dL (3.5-5.0); Alkaline Phosphatase 61 U/L (39-117); Anion Gap 12 (12-20); Aspartate Amino Transferase 41 U/L (5-37); Blood Urea Nitrogen 21 mg/dL (9-16); Calcium 9.1 mg/dL (8.4-10.2); Carbon Dioxide 27 mmol/L (22-29); Chloride 103 mmol/L (96-108); Creatinine Clr Calc Pharmacy 50.8; Estimated Glomerular Filt Rate 42; Magnesium 1.9 mg/dL (1.6-2.6); Potassium 4.9 mmol/L (3.3-5.1); Sodium 137 mmol/L (135-145); Total Protein 6.7 g/dL (6.5-8.0)
[2025-04-13] MEDS: Ketamine HCl/NS 50 MG/5 ML SYRINGE 80 MG IVPUSH (19:47)
--- NOTE | 2025-04-13 20:21 | PC.NURSE ---
and Swati pa at bedside, Rt at bedside with this rn. left hip reduction completed at this time. pt returned to baseline, a&ox4, respirations even and unlabored and pt following all commands.vss . pt placed on hospital bed for comforts.
--- NOTE | 2025-04-13 20:29 | PC.NURSE ---
per ortho, place pillow between pt legs. pt tolerated well, denies pain at this time
--- NOTE | 2025-04-13 22:18 | PHA.MEDREC ---
Addendum entered by Lorri Young RPh 04/13/25 22:28: Reviewed by [facility] Original Note: Pharmacy Consult ? Medication Reconciliation Pharmacy has completed the medication reconciliation. Spoke with pt and he confirmed his medications. Pt confirmed he is taking Ozempic once a week on Sundays and took it last 04/08; pt states his PCP stopped his Metformin when he started on the Ozempic.
--- NOTE | 2025-04-13 23:33 | PC.NURSE ---
pharmacy gave this RN pt nasal spray, spray placed into pt specific bin at this time
[2025-04-14] VITALS (7 sets, daily range): BP systolic 104–127; BP diastolic 50–72; PULSE 65–99; RESP 16–20; TEMP 36.4–37.2; O2SAT 91–95; BMI 42.6
--- NOTE | 2025-04-14 01:36 | PC.NURSE ---
attempted to place abductor between pt legs, pt unable to move hips for device, pillow replaced at this time. pt nasal spray sent up wit pt to room
--- NOTE | 2025-04-14 01:47 | P.CONHOSP_ITS ---
History of Present Illness Data of Consult Service Date: 04/14/25 Requesting physician: León Macdonald Primary Care Provider: MD WOLFGANG Gamez Reason for consult: medical management Patient is a 74-year-old male with a past medical history significant for hypertension, hyperlipidemia, type 2 diabetes, morbid obesity, obstructive sleep apnea, and asthma/COPD, admitted by Orthopedics due to left hip prosthesis dislocation. The patient was seen yesterday in the ED and had his dislocation reduced, he slipped out of the chair at home and had a recurrence. The patient is now admitted by orthopedics for closed reduction tomorrow with sedation. Hospitalist consult placed for medical management. The patient has no acute concerns including chest pain, shortness of breath, nausea or vomiting. No urinary symptoms including frequency, urgency or dysuria. Medical history and medications were reviewed. Review of Systems 2 Review of Systems: Yes all other systems are reviewed and are negative [facility] Medical History Lung nodule SOB (shortness of breath) on exertion Impacted cerumen of both ears Aortic dilatation Cholelithiasis Obstructive sleep apnea Erectile dysfunction Hypercholesterolemia Peripheral neuropathy Asthma Type 2 diabetes mellitus with hyperglycemia Chronic low back pain Hypertension Family History Mother Mental health disorder Surgical History S/P ORIF (open reduction internal fixation) fracture History of left knee replacement History of total right knee replacement History of right hip replacement History of pericardiectomy H/O lumbar discectomy Social History Household Members: Spouse Housing: House Do you presently have visiting nurse or other home services: Yes Alcohol intake: current Alcohol intake frequency: holidays/special occasions only Comment: COUNTS CORRECT Patient Tobacco Use Status: Former Tobacco user Tobacco use type: Cigarette Years Smoked: stopped 1995 Smoked in Last 30 Days: No e-Cigarette/Vaping Use: Never Used Second Hand Smoke Exposure: Yes Use of substances other than those prescribed or required for medical reasons: No Have you been hit, kicked, punched, or otherwise hurt by someone within the past year? If so, by whom?: No Do you feel safe in your current relationship?: No Is there a partner from a previous relationship who is making you feel unsafe now?: No Are you made to feel afraid or neglected: No Advance Directives: Yes Advance Directives on File: Yes Advance Directives Date on File: 12/26/21 Do you have a plan to hurt others: No Plan Recently lost weight without trying: No How much weight loss: Not applicable Eating poorly because of decreased appetite: No Nutrition screen score: 0 Nutrition Risks: No Nutritional Risk Poor oral hygiene: No service: Yes Current occupational status: retired Cognitive needs: No Hearing needs: Yes Vision needs: Yes Narrative: No smoking, alcohol or drug use Meds Allergies Allergy/AdvReac Type Severity Reaction Status Date / Time terbinafine (From LAMISIL) AdvReac Intermediate GI UPSET Verified 04/13/25 18:22 Lamisil Allergy Unknown Stomach Uncoded 04/13/25 03:06 Upset Active Medications: Current Medications Acetaminophen (Acetaminophen 325 Mg Tablet) 650 mg PO Q6H PRN PRN Reason: Pain, Mild 1-3,fever,headache Atorvastatin Calcium (Atorvastatin Calcium 20 Mg Tablet) 20 mg PO BEDTIME PRADIP Calcium Carbonate (Calcium Carbonate 750 Mg Tab.Chew) 750 mg PO Q4H PRN PRN Reason: Heartburn Fluticasone Propionate (Fluticasone Propionate Nasal 16 Gm [place]) 2 spray NOSTRIL-B BID PRN PRN Reason: Nasal Congestion Furosemide (Furosemide 20 Mg Tablet) 20 mg PO MOWEFR@0900 [facility]; Protocol Gabapentin (Gabapentin 600 Mg Tablet) 600 mg PO BEDTIME PRN PRN Reason: Pain, Mild (Pain Scale 1-3) Lisinopril (Lisinopril 5 Mg Tablet) 5 mg PO DAILY [facility]; Protocol Magnesium Hydroxide (Milk Of Magnesia 30 Ml Oral.Susp) 30 ml PO DAILY PRN PRN Reason: Constipation Melatonin (Melatonin 3 Mg Tablet) 6 mg PO BEDTIME PRN PRN Reason: Insomnia Oxycodone HCl (Oxycodone Hcl Immed Release 5 Mg Tablet) 5 mg PO Q4H PRN PRN Reason: Pain, Moderate(Pain Scale 4-6) Sodium Chloride (0.9 % Sodium Chloride Flush 3 Ml Syringe) 3 ml IVFLUSH [facility] Last Admin: 04/14/25 01:04 Dose: Not Given Home Medications ?Medication ?Instructions ?Recorded ?Confirmed ?Last Taken ?Type CPAP #1 ea 12/03/20 03/19/25 Unkn own History cholecalciferol (vitamin D3) 50 50 mcg PO DAILY 04/13/25 02/06/25 History mcg (2,000 unit) capsule (Vitamin D3) gabapentin 600 mg tablet 600 mg PO BEDTIME 02/06/25 0 04/13/25 02/05/25 History lactulose 10 gram/15 mL oral 20 g PO BID PRN Constipat ion 02/06/25 04/13/25 Unknown History solution [id number]-[id number]-[id number] 1 tab PO DAILY 02/06/25 0 04/13/25 02/06/25 History tablet (Multivitamin 50 Plus tablet) fluticasone propionate 50 2 spray intranasal BID PRN N raquel 04/13/25 04/13/25 Unknown History mcg/actuation nasal Congestion spray,suspension furosemide 20 mg tablet 20 mg PO MOWEFR@0900 5 04/13/25 04/11/25 History semaglutide 2 mg/dose (8 mg/3 mL) 2 mg subcut [place] 04/1304/13/25 04/08/25 History subcutaneous pen injector (Ozempic) Physical Exam 2 Vital Signs and Narrative: Vital Signs: Last Vital Signs Temp 99.2 F 04/13/25 23:11 Pulse 93 04/13/25 23:11 Resp 20 04/13/25 23:11 BP 132/78 04/13/25 21:00 Pulse Ox 97 04/13/25 23:11 O2 Del Method Nasal Cannula 04/13/25 23:11 O2 Flow Rate 2 04/13/25 23:11 Oxygen Flow Rate 2 04/13/25 20:13 BMI result Body Mass Index 38.6 General: AOx3, no acute distress Resp: CTA bilaterally CVS: S1, S2, RRR GI: +BS, NT, no distention Skin: Warm, dry Neuro: Cranial nerves II-XII grossly intact bilaterally. Motor grossly intact bilaterally Extremities: No edema Psych: Appropriate affect Results Labs 04/13/25 19:01 04/13/25 19:01 Labs: Laboratory Results - last 24 hr 04/13/25 19:01 MCV 94.1 MCH 31.7 MCHC 33.7 RDW 13.9 Plt Count 144 L MPV 9.1 L Immature Gran % (Auto) 0.5 H Neut % (Auto) 68.4 Lymph % (Auto) 5.8 L [place] % (Auto) 22.4 H Eos % (Auto) 2.4 Baso % (Auto) 0.5 Lymph # (Auto) 0.3 L [place] # (Auto) 1.3 H Eos # (Auto) 0.1 Baso # (Auto) 0.0 Abs Immat Gran (auto) 0.03 Absolute Neuts (auto) 4.0 Absolute Nucleated RBC 0.000 Nucleated RBC % (auto) 0.0 Smear Tech's Comments VERIFIED Anion Gap 12 Estim Creat Clear Calc 50.8 Estimated GFR 42 Random Glucose 130 H Calcium 9.1 Magnesium 1.9 Total Bilirubin 0.8 AST 41 H ALT 23 Alkaline Phosphatase 61 Total Protein 6.7 Albumin 4.1 Assessment and Plan (1) Dislocation of hip, left, closed: Status: Acute (2) Acute kidney injury superimposed on CKD: Status: Acute Plan Patient is a 74-year-old male with a past medical history significant for hypertension, hyperlipidemia, type 2 diabetes, morbid obesity, obstructive sleep apnea, and asthma/COPD, admitted by Orthopedics due to left hip prosthesis dislocation. Pt admitted by ortho for plan for closed reduction later today with sedation. Hosptialist consult placed for medical management. Left hip dislocation - reduced in ED - plan per ortho chronic normocytic anemia - Hbg 12.4/hct 36.8 - no obvious bleeding sources - no need for blood transfusion at this time thrombocytopenia, chronic - PLT 144, near baseline JOSE on CKD - Cr 1.62 - avoid nephrotoxins, hold lasix - given 1L IVF in ED - monitor BMP HTN - hold lasix due to JOSE, lisinopril currently on hold also HLD - continue statin T2DM - managed with ozempic - monitor POC morbid obesity - BMI 38.6 - weight loss encouraged DAVEY - CPAP at bedtime asthma/COPD overlap, no acute exacerbation - no home meds Thank you for allowing me to participate in the pt's care. Will continue to follow. Please contact the medical team if any questions or concerns.
[2025-04-14 03:18] LABS: Hemoglobin A1C 107.8285 umol/L; Total Hemoglobin (HGBA1C) 3209.0590 umol/L
--- NOTE | 2025-04-14 05:05 | PC.NURSE ---
pt refused abductors pillow he was educated on importance of this device to maintain alignment
[2025-04-14 06:38] LABS: Hematocrit 33.4 % (42.0-52.0); Hemoglobin 11.4 g/dl (14.0-18.0); Imm Gran Abs Auto 0.02 X10*3/uL (0.00-0.03); Imm Gran Pct Auto 0.5 % (0.0-0.4); Lymphocytes Absolute Auto 0.6 X10*3/uL (1.2-4.9); MANUAL DIFF FLAG SCAN; Mean Corpuscular HGB Conc 34.1 g/dl (31.0-36.0); Mean Corpuscular Hemoglobin 31.5 pg (27.0-33.0); Mean Corpuscular Volume 92.3 fL (80.0-98.0); NRBC Abs Auto 0.000 X10*3/uL (0.0-0.012); NRBC Pct Auto 0.0 /100WBC (0.0-0.2); Platelet Count 121 X10*3/uL (160-400); Red Blood Count 3.62 X10*6/uL (4.60-5.80); SCAN SMEAR FLAG 1; White Blood Count 4.2 X10*3/uL (4.8-10.8)
[2025-04-14 06:47] LABS: Anion Gap 11 (12-20); Blood Urea Nitrogen 19 mg/dL (9-16); Calcium 8.3 mg/dL (8.4-10.2); Carbon Dioxide 25 mmol/L (22-29); Chloride 106 mmol/L (96-108); Creatinine Clr Calc Pharmacy 66.8; Estimated Glomerular Filt Rate 54; Potassium 4.3 mmol/L (3.3-5.1); Sodium 138 mmol/L (135-145)
--- NOTE | 2025-04-14 08:40 | PM.HPOR ---
History of Present Illness History of Present Illness Date of Service: 04/14/25 Chief complaint: Multiple L hip vishal dislocation Narrative: Festus Munoz is a 74 year old male who presents to the ED yesterday evening after a ?slow slide out of recliner? with associated hip injury X-rays taken in the ED reveal dislocation of left hip hemiarthroplasty, DOS 02/06/[address] Barreto Of note, patient was also seen in the ED yesterday morning for the same issue, left hip was reduced without issue Reduction was successful in the ED yesterday evening This morning, the patient reports that he is in some very minor pain in the left hip Patient states that he was having a hard time ambulating up and down stairs upon discharge from the ED yesterday morning, is currently very nervous about potential ambulation due to recurrent dislocation Denies numbness or tingling in the left lower extremity No other acute complaints or concerns at this time Review of Systems Review of Systems: Yes all other systems are reviewed and are negative PMFSH Past Medical History Medical History Lung nodule SOB (shortness of breath) on exertion Impacted cerumen of both ears Aortic dilatation Cholelithiasis Obstructive sleep apnea Erectile dysfunction Hypercholesterolemia Peripheral neuropathy Asthma Type 2 diabetes mellitus with hyperglycemia Chronic low back pain Hypertension Family History Family History Mother Mental health disorder Surgical History Surgical History S/P ORIF (open reduction internal fixation) fracture History of left knee replacement History of total right knee replacement History of right hip replacement History of pericardiectomy H/O lumbar discectomy Social History Social History Household Members: Spouse Housing: House Do you presently have visiting nurse or other home services: Yes Alcohol intake: current Alcohol intake frequency: holidays/special occasions only Comment: COUNTS CORRECT Patient Tobacco Use Status: Former Tobacco user Tobacco use type: Cigarette Years Smoked: stopped 1995 Smoked in Last 30 Days: No e-Cigarette/Vaping Use: Never Used Second Hand Smoke Exposure: Yes Use of substances other than those prescribed or required for medical reasons: No Have you been hit, kicked, punched, or otherwise hurt by someone within the past year? If so, by whom?: No Do you feel safe in your current relationship?: No Is there a partner from a previous relationship who is making you feel unsafe now?: No Are you made to feel afraid or neglected: No Advance Directives: Yes Advance Directives on File: Yes Advance Directives Date on File: 12/26/21 Do you have a plan to hurt others: No Plan Recently lost weight without trying: No How much weight loss: Not applicable Eating poorly because of decreased appetite: No Nutrition screen score: 0 Nutrition Risks: No Nutritional Risk Poor oral hygiene: No service: Yes Current occupational status: retired Cognitive needs: No Hearing needs: Yes Vision needs: Yes Meds Allergies Allergy/AdvReac Type Severity Reaction Status Date / Time terbinafine (From LAMISIL) AdvReac Intermediate GI UPSET Verified 04/13/25 18:22 Lamisil Allergy Unknown Stomach Uncoded 04/13/25 03:06 Upset Active Medications: Current Medications Acetaminophen (Acetaminophen 325 Mg Tablet) 650 mg PO Q6H PRN PRN Reason: Pain, Mild 1-3,fever,headache Atorvastatin Calcium (Atorvastatin Calcium 20 Mg Tablet) 20 mg PO BEDTIME PRADIP Calcium Carbonate (Calcium Carbonate 750 Mg Tab.Chew) 750 mg PO Q4H PRN PRN Reason: Heartburn Fluticasone Propionate (Fluticasone Propionate Nasal 16 Gm [place]) 2 spray NOSTRIL-B BID PRN PRN Reason: Nasal Congestion Furosemide (Furosemide 20 Mg Tablet) 20 mg PO MOWEFR@0900 [facility]; Protocol Gabapentin (Gabapentin 600 Mg Tablet) 600 mg PO BEDTIME PRN PRN Reason: Pain, Mild (Pain Scale 1-3) Lisinopril (Lisinopril 5 Mg Tablet) 5 mg PO DAILY [facility]; Protocol Magnesium Hydroxide (Milk Of Magnesia 30 Ml Oral.Susp) 30 ml PO DAILY PRN PRN Reason: Constipation Melatonin (Melatonin 3 Mg Tablet) 6 mg PO BEDTIME PRN PRN Reason: Insomnia Oxycodone HCl (Oxycodone Hcl Immed Release 5 Mg Tablet) 5 mg PO Q4H PRN PRN Reason: Pain, Moderate(Pain Scale 4-6) Sodium Chloride (0.9 % Sodium Chloride Flush 3 Ml Syringe) 3 ml IVFLUSH QSHIFT [facility] Last Admin: 04/14/25 01:04 Dose: Not Given Home Medications ?Medication ?Instructions ?Recorded ?Confirmed ?Last Taken ?Type CPAP #1 ea 12/03/20 03/19/25 Unknown History cholecalciferol (vitamin D3) 50 50 mcg PO DAILY 02/06/25 04/13/25 02/06/25 History mcg (2,000 unit) capsule (Vitamin D3) gabapentin 600 mg tablet 600 mg PO BEDTIME 02/06/25 04/13/25 02/05/25 History lactulose 10 gram/15 mL oral 20 g PO BID PRN Constipation 02/06/25 04/13/25 Unknown History solution pnsblibfgjav-vwjmsujb-ifujlq 1 tab PO DAILY 02/06/25 04/13/25 02/06/25 History tablet (Multivitamin 50 Plus tablet) fluticasone propionate 50 2 spray intranasal BID PRN Nasal 04/13/25 04/13/25 Unknown History mcg/actuation nasal Congestion spray,suspension furosemide 20 mg tablet 20 mg PO MOWEFR@0900 04/13/25 04/13/25 04/11/25 History semaglutide 2 mg/dose (8 mg/3 mL) 2 mg subcut [place] 04/13/25 04/13/25 04/08/25 History subcutaneous pen injector (Ozempic) Physical Exam Vital Signs: Vital Signs: Last Vital Signs Temp 98.3 F 04/14/25 07:03 Pulse 65 04/14/25 07:03 Resp 18 04/14/25 07:03 BP 120/60 04/14/25 07:03 Pulse Ox 95 04/14/25 07:03 O2 Del Method Room Air 04/14/25 07:03 O2 Flow Rate 2 04/14/25 05:00 Oxygen Flow Rate 2 04/13/25 20:13 BMI result Body Mass Index 42.6 Extrem: Other: Patient's left lower extremity normal to inspection No evidence of shortening or internal/external rotation No evidence of surrounding erythema, ecchymosis No evidence of infection Patient is able to flex and extend the digits of the left foot without difficulty Compartments soft, nontender Distal sensation intact Capillary refill brisk Results Labs 04/14/25 06:14 04/14/25 06:14 Labs: Abnormal lab results 04/13/25 04/14/25 Range/Units 19:01 06:14 WBC 4.2 L (4.8-10.8) X10*3/uL RBC 3.91 L 3.62 L (4.60-5.80) X10*6/uL Hgb 12.4 L 11.4 L (14.0-18.0) g/dl Hct 36.8 L 33.4 L (42.0-52.0) % Plt Count 144 L 121 L (160-400) X10*3/uL MPV 9.1 L 9.3 L (9.4-12.4) fL Immature Gran % (Auto) 0.5 H 0.5 H (0.0-0.4) % Lymph % (Auto) 5.8 L 13.2 L (20-40) % [place] % (Auto) 22.4 H 24.0 H (2-11) % Lymph # (Auto) 0.3 L 0.6 L (1.2-4.9) X10*3/uL [place] # (Auto) 1.3 H (0.1-1.2) X10*3/uL Anion Gap 11 L (12-20) BUN 21 H 19 H (9-16) mg/dL Creatinine 1.62 H (0.5-1.4) mg/dL Random Glucose 130 H (60-115) mg/dL Fasting Glucose 114 H (60-99) mg/dL Calcium 8.3 L D (8.4-10.2) mg/dL AST 41 H (5-37) U/L H & H 04/13/25 04/14/25 Range/Units 19:01 06:14 Hgb 12.4 L 11.4 L (14.0-18.0) g/dl Hct 36.8 L 33.4 L (42.0-52.0) % All other labs normal. Diagnostic results Hip x-ray: report reviewed and image reviewed Assessment and Plan (1) Status post hemiarthroplasty of left hip: Status: Acute (2) Dislocation of hip, left, closed: Status: Acute Plan 1. Status post multiple dislocations of left hip hemiarthroplasty Reduced twice in ED yesterday DOS for left hip vishal 02/06/2025 Patient is educated about this condition Patient is educated about the typical recovery course Case was discussed with Dr. Barreto, and a collaborative treatment plan was formed: At this time, I feel it is best to keep the patient admitted to the hospital for monitoring given recurrent dislocations within 24 hours of each other Protected weight-bearing with transfers, should be using an abduction pillow whenever possible Strict posterior precautions: No internal rotation of left hip past neutral, no crossing legs, no bending past 90 degrees at the hips Patient will be evaluated early next week for potential revision of left hip hemiarthroplasty/conversion to total hip arthroplasty given recurrent instability Patient states understanding of this and is amenable to this plan Continue pain management PT/OT ordered today Quality Stroke Does the patient have a stroke diagnosis?: No VTE Prior VTE?: No VTE Risk Level:: Medical - moderate - high VTE Device Contraindication: N/A - Device Ordered VTE Drug Contraindication: Treatment Not Indicated Procedures Date of Service Date of Service: 04/14/25
[2025-04-14 09:18] LABS: Glucose, Whole Blood 98 mg/dL (60-115)
[2025-04-14] MEDS: 0.9 % Sodium Chloride Flush 3 ML SYRINGE IVFLUSH ×3 (09:55→20:49)
[2025-04-14 11:15] LABS: Glucose, Whole Blood 114 mg/dL (60-115)
--- NOTE | 2025-04-14 15:23 | MHC.CM.PN ---
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
[2025-04-14 16:31] LABS: Glucose, Whole Blood 91 mg/dL (60-115)
[2025-04-14 20:40] LABS: Glucose, Whole Blood 109 mg/dL (60-115)
--- NOTE | 2025-04-14 21:46 | HO.SKINPHOTO ---
Location: Category: Stage: Length: Width: Depth: cm Location: Category: Stage: Length: Width: Depth: cm Location: Category: Stage: Length: Width: Depth: cm Location: Category: Stage: Length: Width: Depth: cm Location: Category: Stage: Length: Width: Depth: cm Location: Category: Stage: Length: Width: Depth: cm
[2025-04-15 05:00] VITALS: BP 118/55; PULSE 65; RESP 18; TEMP 36.8; O2SAT 93
[2025-04-15 06:24] LABS: Hematocrit 33.2 % (42.0-52.0); Hemoglobin 11.4 g/dl (14.0-18.0); Imm Gran Abs Auto 0.01 X10*3/uL (0.00-0.03); Imm Gran Pct Auto 0.3 % (0.0-0.4); Lymphocytes Absolute Auto 0.7 X10*3/uL (1.2-4.9); MANUAL DIFF FLAG SCAN; Mean Corpuscular HGB Conc 34.3 g/dl (31.0-36.0); Mean Corpuscular Hemoglobin 31.5 pg (27.0-33.0); Mean Corpuscular Volume 91.7 fL (80.0-98.0); NRBC Abs Auto 0.000 X10*3/uL (0.0-0.012); NRBC Pct Auto 0.0 /100WBC (0.0-0.2); Platelet Count 125 X10*3/uL (160-400); Red Blood Count 3.62 X10*6/uL (4.60-5.80); SCAN SMEAR FLAG 1; White Blood Count 3.7 X10*3/uL (4.8-10.8)
[2025-04-15 06:42] LABS: Anion Gap 12 (12-20); Blood Urea Nitrogen 17 mg/dL (9-16); Calcium 8.5 mg/dL (8.4-10.2); Carbon Dioxide 27 mmol/L (22-29); Chloride 105 mmol/L (96-108); Creatinine Clr Calc Pharmacy 70.6; Estimated Glomerular Filt Rate 58; Potassium 4.7 mmol/L (3.3-5.1); Sodium 139 mmol/L (135-145)
[2025-04-15 07:28] LABS: Glucose, Whole Blood 95 mg/dL (60-115)
[2025-04-15] MEDS: 0.9 % Sodium Chloride Flush 3 ML SYRINGE IVFLUSH ×3 (07:43→21:14)
[2025-04-15 07:52] VITALS: BP 122/66; PULSE 84; RESP 16; TEMP 36.6; O2SAT 97
--- NOTE | 2025-04-15 09:40 | PM.PNORT ---
Subjective Subjective Date of Service: 04/15/25 Interval history: Admission day 2 status post multiple left hip hemiarthroplasty dislocations Patient resting comfortably in bed this morning Traditional pillow between legs, patient reports that wedge abduction pillow is ?too uncomfortable? Pain very well managed, reports no pain at this time No acute events overnight No other acute complaints or concerns at this time Physical Exam Vital Signs: Vital Signs: Last Vital Signs Temp 97.9 F 04/15/25 07:52 Pulse 84 04/15/25 07:52 Resp 16 04/15/25 07:52 BP 122/66 04/15/25 07:52 Pulse Ox 97 04/15/25 07:52 O2 Del Method Room Air 04/15/25 07:52 O2 Flow Rate 2 04/14/25 05:00 Oxygen Flow Rate 2 04/13/25 20:13 BMI result Body Mass Index 42.6 Extrem: Other: Patient's left lower extremity normal to inspection No evidence of shortening or internal/external rotation No evidence of surrounding erythema, ecchymosis No evidence of infection Patient is able to flex and extend the digits of the left foot without difficulty Compartments soft, nontender Distal sensation intact Capillary refill brisk Procedures Date of Service Date of Service: 04/15/25 Progress Note: A&P Assessment and plan (1) Status post hemiarthroplasty of left hip: Status: Acute (2) Dislocation of hip, left, closed: Status: Acute Plan 1. Status post multiple dislocations of left hip hemiarthroplasty Dick performed 02/06/[address] Barreto Continue with pain management Toe-touch weight-bearing on left lower extremity with transfers only Strict posterior precautions: No hip flexion past 90 degrees, no internal rotation past neutral, no crossing of the legs Pending re-evaluation tomorrow for discussion of potential further treatment options Patient understands this and is amenable to this plan Time Spent With Patient Time: Total time managing care of this patient today ____ minutes. Quality Stroke Does the patient have a stroke diagnosis?: No VTE Prior VTE?: No VTE Risk Level:: Medical - moderate - high VTE Device Contraindication: N/A - Device Ordered VTE Drug Contraindication: Treatment Not Indicated
[2025-04-15 11:11] LABS: Glucose, Whole Blood 102 mg/dL (60-115)
[2025-04-15 13:14] VITALS: BP 95/57; PULSE 83; RESP 16; TEMP 36.8; O2SAT 96
[2025-04-15 15:54] VITALS: BP 115/62; PULSE 76; RESP 18; TEMP 36.8; O2SAT 94
[2025-04-15 16:14] LABS: Glucose, Whole Blood 111 mg/dL (60-115)
[2025-04-15 20:00] VITALS: BP 127/56; PULSE 65; RESP 20; TEMP 36.9; O2SAT 97
[2025-04-15 21:05] LABS: Glucose, Whole Blood 97 mg/dL (60-115)
[2025-04-16 03:30] VITALS: BP 126/59; PULSE 71; RESP 18; TEMP 36.3; O2SAT 94
[2025-04-16 06:11] LABS: Hematocrit 33.3 % (42.0-52.0); Hemoglobin 11.2 g/dl (14.0-18.0); Imm Gran Abs Auto 0.01 X10*3/uL (0.00-0.03); Imm Gran Pct Auto 0.3 % (0.0-0.4); Lymphocytes Absolute Auto 0.7 X10*3/uL (1.2-4.9); MANUAL DIFF FLAG SCAN; Mean Corpuscular HGB Conc 33.6 g/dl (31.0-36.0); Mean Corpuscular Hemoglobin 30.9 pg (27.0-33.0); Mean Corpuscular Volume 92.0 fL (80.0-98.0); NRBC Abs Auto 0.000 X10*3/uL (0.0-0.012); NRBC Pct Auto 0.0 /100WBC (0.0-0.2); Platelet Count 132 X10*3/uL (160-400); Red Blood Count 3.62 X10*6/uL (4.60-5.80); SCAN SMEAR FLAG 1; White Blood Count 3.3 X10*3/uL (4.8-10.8)
[2025-04-16 06:32] LABS: Anion Gap 13 (12-20); Blood Urea Nitrogen 16 mg/dL (9-16); Calcium 8.4 mg/dL (8.4-10.2); Carbon Dioxide 27 mmol/L (22-29); Chloride 105 mmol/L (96-108); Creatinine Clr Calc Pharmacy 76.8; Estimated Glomerular Filt Rate > 60; Potassium 4.6 mmol/L (3.3-5.1); Sodium 140 mmol/L (135-145)
[2025-04-16 07:41] LABS: Glucose, Whole Blood 99 mg/dL (60-115)
[2025-04-16 07:47] VITALS: BP 101/61; PULSE 62; RESP 17; TEMP 36.4; O2SAT 92
[2025-04-16] MEDS: 0.9 % Sodium Chloride Flush 3 ML SYRINGE IVFLUSH ×3 (07:51→20:47)
--- NOTE | 2025-04-16 09:08 | PM.PNORT ---
Subjective Subjective Date of Service: 04/16/25 Interval history: Admission day 3 status post multiple left hip hemiarthroplasty dislocations Patient resting comfortably in bed this morning Traditional pillow between legs, patient reports that wedge abduction pillow is ?too uncomfortable? Pain very well managed, reports no pain at this time No acute events overnight No other acute complaints or concerns at this time Physical Exam Vital Signs: Vital Signs: Last Vital Signs Temp 97.5 F 04/16/25 07:47 Pulse 62 04/16/25 07:47 Resp 17 04/16/25 07:47 BP 101/61 04/16/25 07:47 Pulse Ox 92 04/16/25 07:47 O2 Del Method Room Air 04/16/25 07:47 O2 Flow Rate 2 04/14/25 05:00 Oxygen Flow Rate 2 04/13/25 20:13 BMI result Body Mass Index 42.6 Extrem: Other: Patient's left lower extremity normal to inspection No evidence of shortening or internal/external rotation No evidence of surrounding erythema, ecchymosis No evidence of infection Patient is able to flex and extend the digits of the left foot without difficulty Compartments soft, nontender Distal sensation intact Capillary refill brisk Procedures Date of Service Date of Service: 04/16/25 Progress Note: A&P Assessment and plan (1) Status post hemiarthroplasty of left hip: Status: Acute (2) Dislocation of hip, left, closed: Status: Acute Plan 1. Status post multiple dislocations of left hip hemiarthroplasty Dick performed 02/06/[address] Barreto Continue with pain management Toe-touch weight-bearing on left lower extremity with transfers only Strict posterior precautions: No hip flexion past 90 degrees, no internal rotation past neutral, no crossing of the legs After discussion with Dr. Barreto, patient will be made NPO at midnight and added onto the surgical schedule tomorrow for revision of left hip hemiarthroplasty I educated the patient about the condition. I discussed both operative and nonoperative treatment options. The patient would like to proceed with surgery. The risks and benefits of operative treatment were discussed with the patient and the patient wishes to proceed with surgery. These risks include, but are not limited to, risk of damage to blood vessels, nerves, tendons, infection, recurrence, incomplete relief of preoperative symptoms, persistent pain, possible need for further surgery, and the risks associated with regional blocks and/or anesthesia. Plan is to take the patient to the operating room on 04/17/2025 for the following procedures: 1. Left hip hemiarthroplasty revision Time Spent With Patient Time: Total time managing care of this patient today ____ minutes. Quality Stroke Does the patient have a stroke diagnosis?: No VTE Prior VTE?: No VTE Risk Level:: Medical - moderate - high VTE Device Contraindication: N/A - Device Ordered VTE Drug Contraindication: Treatment Not Indicated
[2025-04-16 11:20] LABS: Glucose, Whole Blood 119 mg/dL (60-115)
[2025-04-16 15:14] VITALS: BP 124/57; PULSE 75; RESP 18; TEMP 36.4; O2SAT 97
[2025-04-16 16:07] LABS: Glucose, Whole Blood 112 mg/dL (60-115)
[2025-04-16 19:23] VITALS: BP 107/60; PULSE 78; RESP 18; TEMP 36.3; O2SAT 94
[2025-04-16 20:29] LABS: Glucose, Whole Blood 109 mg/dL (60-115)
[2025-04-17] VITALS (9 sets, daily range): BP systolic 117–151; BP diastolic 59–100; PULSE 66–96; RESP 16–20; TEMP 36.1–37.2; O2SAT 92–97
[2025-04-17 07:29] LABS: Glucose, Whole Blood 103 mg/dL (60-115)
[2025-04-17] MEDS: 0.9 % Sodium Chloride Flush 3 ML SYRINGE IVFLUSH ×3 (08:33→20:57)
[2025-04-17 11:21] LABS: Glucose, Whole Blood 94 mg/dL (60-115)
--- NOTE | 2025-04-17 12:33 | MHC.SHP ---
Pre-Procedural Eval Section A - 24 Hr Update-Section A only Date of Service: 04/17/25 The patient is an INPATIENT: Yes Changes since office visit: No Cold of Flu in the past 2 weeks, No New Medical Problems, No Changes in Medication and No Patient answered all questions The patient has been examined within 24 hours of the surgical procedure. The History & Physical has been completed within 30 days and I have reviewed it.: Yes Section B - Complete if H&P > 30 days Chief Complaint: Multiple L hip vishal dislocation Allergies: Allergies Allergy/AdvReac Type Severity Reaction Status Date / Time terbinafine (From LAMISIL) AdvReac Intermediate GI UPSET Verified 04/13/25 18:22 Lamisil Allergy Unknown Stomach Uncoded 04/13/25 03:06 Upset Plan I have reviewed the history and physical and performed a pertinent physical examination on my patient. No changes have occurred unless specified. Time Spent With Patient Time: Total time managing care of this patient today ____ minutes.
--- NOTE | 2025-04-17 12:43 | PC.NURSE ---
Addendum entered by Dania Fitch RN 04/17/25 12:54: iv was kinked. removed and started another iv 20g right wrist. Original Note: 20g right upper arm. intact. no leaking. patent
--- NOTE | 2025-04-17 13:38 | HO.WOUND ---
Wound Consult: Initial 74yr old male admitted [place] [facility] [place]- See progress notes and H&P for detailed history.? Wound consult placed for Right 2nd toe.? Patient agreeable to assessment and photo documentation.? Patient reports walking and falling into item in home that cut his foot. He is a known Diabetic and reports his A1C in the 5-6 range - he reports understanding the impact of blood sugar control on his wound healing. 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 Given location of wound patient will have difficulty performing his own dressing will likely benefit from continued VNA services at time of d/c. Right second toe Etiology: ??Laceration Present on Admission Measurements: 2.2cm x 0.2cm x 0.2cm Wound Bed: pink and white wound bed - within base web space / fold Drainage / Odor: dried red drainage Edges: ? linear Addis wound: intact ? No Induration, Fluctuance or Warmth noted Pain: denies Goals of Treatment: ? durafiber for moisture management Recommendations: Provide adequate and supplemental nutrition.? When applicable maintain blood glucose levels per Providers order. Right Toe - Cleanse dry scabs with Betadine. Cleanse moist wound bed with NS, Pat dry. Apply Durafiber Ag to wound bed cover with dry gauze, ABD pad and wrap. Change every other day. Re-consult wound care Nurse for wound deterioration or wound changes.
--- NOTE | 2025-04-17 16:14 | P.BOP_ITS ---
Brief Operative Note Date of Service: 04/17/25 Pre-op diagnosis: left hip prosthetic instability Post-op diagnosis: same Procedure: Revision left hip arthropasty, femoral component only Implants: +7. Surgeon: Pedro Barreto MD Anesthesia: GETA and local Was an Residential Air Sealing Technician used for this Procedure?: Yes Residential Air Sealing Technician: Maninder Garcia Estimated blood loss (mL): 150 IV fluids (mL): 750 Pathology: none sent Condition: stable Disposition: PACU
[2025-04-17 16:48] LABS: Glucose, Whole Blood 115 mg/dL (60-115)
[2025-04-17 20:03] LABS: Glucose, Whole Blood 177 mg/dL (60-115)
[2025-04-18 03:06] VITALS: BP 136/67; PULSE 68; RESP 18; TEMP 36.7; O2SAT 94
[2025-04-18 07:22] VITALS: BP 116/60; PULSE 76; RESP 16; TEMP 36.4; O2SAT 92
[2025-04-18 07:27] LABS: Glucose, Whole Blood 157 mg/dL (60-115)
[2025-04-18] MEDS: 0.9 % Sodium Chloride Flush 3 ML SYRINGE IVFLUSH ×2 (07:43→15:39)
--- NOTE | 2025-04-18 07:46 | PM.PNORT ---
Subjective Subjective Date of Service: 04/18/25 Interval history: POD1 s/p left hip vishal revision Patient is resting in bed comfortably No overnight events Pain is managed No additional complaints Physical Exam Vital Signs: Vital Signs: Last Vital Signs Temp 97.5 F 04/18/25 07:22 Pulse 76 04/18/25 07:22 Resp 16 04/18/25 07:22 BP 116/60 04/18/25 07:22 Pulse Ox 92 04/18/25 07:22 O2 Del Method Room Air 04/18/25 07:22 O2 Flow Rate 2 04/14/25 05:00 Oxygen Flow Rate 2 04/13/25 20:13 BMI result Body Mass Index 42.6 Const: General: cooperative, healthy appearing and no acute distress Resp: Effort & Inspection: normal respiratory effort and able to speak in complete sentences Cardio: Rate: regular rate Peripheral pulses: Peripheral pulses 2+ throughout GI: Palpation (GI): Soft to palpation Skin: Lesions: no lesions Rashes: no rashes Extrem: Other: left hip dressing is c/d/i. Able to dorsi/plantar flex. Calf is supple and nontender. Sensation intact. Pedal pulse intact. Procedures Date of Service Date of Service: 04/18/25 Progress Note: A&P Assessment and plan (1) Status post hemiarthroplasty of left hip: Status: Acute (2) Dislocation of hip, left, closed: Status: Acute Plan Continue pain mgmnt Begin ASA for dvt ppx begin PT/OT for revision left hip vishal - posterior precautions and WBAT Dispo planning-Pending PT eval, pain mgmnt, Case management - patient will need p.t. and o.t. VNA on discharge Time Spent With Patient Time: Total time managing care of this patient today ____ minutes. Quality Stroke Does the patient have a stroke diagnosis?: No VTE Prior VTE?: No VTE Risk Level:: Medical - moderate - high VTE Device Contraindication: N/A - Device Ordered VTE Drug Contraindication: Treatment Not Indicated
--- NOTE | 2025-04-18 08:37 | HO.POSTANES ---
Post Anesthesia Evaluation Post Anesthesia Evaluation Date of Service: 04/18/25 Vital Signs: Vital Signs Temp Pulse Resp BP Pulse Ox O2 Del Method 04/18/25 07:22 97.5 F 76 16 116/60 92 Room Air 04/18/25 03:06 98.0 F 68 18 136/67 94 Room Air Anesthesia: General Mental Status: Awake Pain Control: Satisfactory Nausea/Vomiting: None Hydration: Adequate Anesthesia-Related Issues: No Anes. Related Issues
[2025-04-18 08:58] LABS: MANUAL DIFF FLAG NO
[2025-04-18 09:02] LABS: Hematocrit 31.6 % (42.0-52.0); Hemoglobin 10.6 g/dl (14.0-18.0); Imm Gran Abs Auto 0.03 X10*3/uL (0.00-0.03); Imm Gran Pct Auto 0.5 % (0.0-0.4); Lymphocytes Absolute Auto 0.7 X10*3/uL (1.2-4.9); Mean Corpuscular HGB Conc 33.5 g/dl (31.0-36.0); Mean Corpuscular Hemoglobin 30.9 pg (27.0-33.0); Mean Corpuscular Volume 92.1 fL (80.0-98.0); NRBC Abs Auto 0.000 X10*3/uL (0.0-0.012); NRBC Pct Auto 0.0 /100WBC (0.0-0.2); Platelet Count 147 X10*3/uL (160-400); Red Blood Count 3.43 X10*6/uL (4.60-5.80); White Blood Count 5.9 X10*3/uL (4.8-10.8)
[2025-04-18 09:15] LABS: Anion Gap 12 (12-20); Blood Urea Nitrogen 20 mg/dL (9-16); Calcium 8.4 mg/dL (8.4-10.2); Carbon Dioxide 28 mmol/L (22-29); Chloride 106 mmol/L (96-108); Creatinine Clr Calc Pharmacy 80.4; Estimated Glomerular Filt Rate > 60; Potassium 4.4 mmol/L (3.3-5.1); Sodium 142 mmol/L (135-145)
[2025-04-18 11:41] LABS: Glucose, Whole Blood 135 mg/dL (60-115)
[2025-04-18 12:00] VITALS: BP 118/58; PULSE 80; RESP 18; TEMP 36.3; O2SAT 95
[2025-04-18 15:24] VITALS: BP 129/61; PULSE 76; RESP 20; TEMP 37.2; O2SAT 97
--- NOTE | 2025-04-18 15:55 | MHC.CM.PN ---
EMR REVIEWED AND PER MD ROUNDS, PT IS NOT MEDICALLY CLEARED FOR DC (POD #1) P.T. REC HOME WITH SERVICES . [facility] VNA UPDATED VIA [employer]. CM WILL CONTINUE TO FOLLOW
[2025-04-18 16:12] LABS: Glucose, Whole Blood 147 mg/dL (60-115)
[2025-04-18 19:00] VITALS: BP 111/63; PULSE 80; RESP 20; TEMP 36.1; O2SAT 95
[2025-04-18 21:00] LABS: Glucose, Whole Blood 119 mg/dL (60-115)
[2025-04-18 23:00] VITALS: BP 149/79; PULSE 70; RESP 16; TEMP 36.2; O2SAT 96
[2025-04-19] MEDS: 0.9 % Sodium Chloride Flush 3 ML SYRINGE IVFLUSH ×2 (00:05→07:22)
[2025-04-19 03:00] VITALS: BP 117/60; PULSE 74; RESP 18; TEMP 36.6; O2SAT 94
[2025-04-19 07:00] VITALS: BP 107/56; PULSE 79; RESP 12; TEMP 36.6; O2SAT 92
[2025-04-19 07:15] LABS: Glucose, Whole Blood 111 mg/dL (60-115)
[2025-04-19 07:27] LABS: MANUAL DIFF FLAG NO
[2025-04-19 07:29] LABS: Hematocrit 30.0 % (42.0-52.0); Hemoglobin 10.3 g/dl (14.0-18.0); Imm Gran Abs Auto 0.03 X10*3/uL (0.00-0.03); Imm Gran Pct Auto 0.5 % (0.0-0.4); Lymphocytes Absolute Auto 1.0 X10*3/uL (1.2-4.9); Mean Corpuscular HGB Conc 34.3 g/dl (31.0-36.0); Mean Corpuscular Hemoglobin 31.0 pg (27.0-33.0); Mean Corpuscular Volume 90.4 fL (80.0-98.0); NRBC Abs Auto 0.000 X10*3/uL (0.0-0.012); NRBC Pct Auto 0.0 /100WBC (0.0-0.2); Platelet Count 154 X10*3/uL (160-400); Red Blood Count 3.32 X10*6/uL (4.60-5.80); White Blood Count 6.3 X10*3/uL (4.8-10.8)
[2025-04-19 07:44] LABS: Anion Gap 11 (12-20); Blood Urea Nitrogen 19 mg/dL (9-16); Calcium 8.3 mg/dL (8.4-10.2); Carbon Dioxide 28 mmol/L (22-29); Chloride 107 mmol/L (96-108); Creatinine Clr Calc Pharmacy 81.9; Estimated Glomerular Filt Rate > 60; Potassium 4.2 mmol/L (3.3-5.1); Sodium 142 mmol/L (135-145)
--- NOTE | 2025-04-19 07:55 | W.PM.OPN ---
Operative Note Operative Note Date of Service: 04/17/25 Narrative: Date of Service: 04/17/25 Pre-op diagnosis: left hip prosthetic instability Post-op diagnosis: same Procedure: Revision left hip arthropasty, femoral component only Implants: +7.5/48 Surgeon: Pedro Barreto MD Anesthesia: GETA and local Was an Offset Duplicating Machine Operator used for this Procedure?: Yes Offset Duplicating Machine Operator: Maninder Garcia Estimated blood loss (mL): 150 IV fluids (mL): 750 Pathology: none sent Condition: stable Disposition: PACU Indications: 74-year-old gentleman status post left hemiarthroplasty who sustained 2 dislocations while at home. He describes twisting sliding incident 1 out of bed in the other out of recliner. These were easily reduced in the ED we discussed revision surgery to put in a longer head to hopefully reduce any further dislocations. Explained the procedure to him. I explained the risks, benefits and alternatives clearly to him. He expressed understanding and all his questions were answered. Procedure in detail: Patient was brought into the operating room and placed in the right lateral decubitus position. All bony prominences were well padded and the limb was prepped and draped in standard sterile fashion. A time-out was called to identify proper site procedure proper surgeon IV antibiotics and 1 g of tranexamic acid were administered. I began by making a curvilinear incision over the posterolateral aspect of the greater trochanter. Dissection was taken down to the tensor fascia which was incised in line with the incision and a Charnley retractor was placed. Cautery was used to maintain hemostasis. The hip was internally rotated and dislocated. There was hematoma and debris around the cuff. I removed the bipolar components easily and examined the acetabulum. The posterior wall was slightly deficient in that the prior dislocations appeared to have taken a piece of bone. There was still a viable cuff but the posterior superior portion did appear to have fractured when he dislocated. There was bony debris and small portion of the acetabulum attached to the labrum. This was all removed and cleaned up. The soft tissue was removed. The stem was stable and ingrown. I then trialed with a +5 and a +7 5 head with a 48 bipolar component. I was able to reduce and range the 7.5. He remains at risk for posterior dislocations because of the deficiency in the acetabulum but he was still stable at 90 with a proximally 70 degrees of internal rotation and stable to 60 degrees of internal rotation with no abduction. Given this I elected to place my final 7.5 implant. A collar was placed and then a see hed 7.[address] and a 48 bipolar component. The hip was reduced and I was again satisfied with the stability. I irrigated copiously and closed the capsule with FiberWire. Matt's fascia with 0 Vicryl, subcuticular with 2-0 Vicryl and the skin with guero. Patient was placed into a sterile dressing. Patient was extubated brought to the recovery room in stable condition. There were no known complications.
--- NOTE | 2025-04-19 08:04 | PM.PNORT ---
Subjective Subjective Date of Service: 04/19/25 Interval history: POD2 s/p left hip vishal revision Patient is resting in bed comfortably No overnight events Pain is managed No additional complaints Physical Exam Vital Signs: Vital Signs: Last Vital Signs Temp 97.9 F 04/19/25 07:00 Pulse 79 04/19/25 07:00 Resp 12 04/19/25 07:00 BP 107/56 L 04/19/25 07:00 Pulse Ox 92 04/19/25 07:00 O2 Del Method Room Air 04/19/25 07:00 O2 Flow Rate 2 04/14/25 05:00 Oxygen Flow Rate 2 04/13/25 20:13 BMI result Body Mass Index 42.6 Const: General: cooperative, healthy appearing and no acute distress Resp: Effort & Inspection: normal respiratory effort and able to speak in complete sentences Cardio: Rate: regular rate Peripheral pulses: Peripheral pulses 2+ throughout GI: Palpation (GI): Soft to palpation Skin: Lesions: no lesions Rashes: no rashes Extrem: Other: left hip dressing is c/d/i. Able to dorsi/plantar flex. Calf is supple and nontender. Sensation intact. Pedal pulse intact. Procedures Date of Service Date of Service: 04/19/25 Progress Note: A&P Assessment and plan (1) Status post hemiarthroplasty of left hip: Status: Acute (2) Dislocation of hip, left, closed: Status: Acute Plan Continue pain mgmnt Begin ASA for dvt ppx begin PT/OT for revision left hip vishal - posterior precautions and WBAT Dispo planning-Pending PT eval, pain mgmnt, Case management - patient will need p.t. and o.t. VNA on discharge Time Spent With Patient Time: Total time managing care of this patient today ____ minutes. Quality Stroke Does the patient have a stroke diagnosis?: No VTE Prior VTE?: No VTE Risk Level:: Medical - moderate - high VTE Device Contraindication: N/A - Device Ordered VTE Drug Contraindication: Treatment Not Indicated
--- NOTE | 2025-04-19 08:08 | P.DS_ITS ---
DS: Providers Provider Date of Service: 04/17/25 Date of admission: 04/13/25 20:33 Date of discharge: 04/19/25 Primary care physician: Daniel Romano MD Consults: 04/13/25 20:47 Consult to Hospitalist Stat Comment: Consulting Provider[place] [facility] Reason For Exam: DM, COPD, medical management 04/14/25 21:47 Consult to Wound Care Routine Reason for consultation: Right foot toes scabs and under 2nd toe open area Has provider been notified: Yes 04/16/25 00:40 Consult to Wound Care Routine Reason for consultation: right foot 2nd toe abrasion/scab DS: Diagnosis Discharge Diagnosis (1) Status post hemiarthroplasty of left hip: Status: Acute (2) Dislocation of hip, left, closed: Status: Acute DS: Summary Hospital Course Hospital Course: The patient is a 74-year-old male who was admitted to the hospital on 04/13/2025 after recurrent left hip hemiarthroplasty dislocations on that date. The patient underwent a successful revision left hip hemiarthroplasty on 04/17/2025, was transferred to PACU and then to the floor to recover. During their stay, their vitals were stable, afebrile at 97.9. Labs were unremarkable, H/H 10.3/30.0. POD 1 he was started on aspirin 325 b.i.d. for DVT ppx, they also received Physical Therapy services twice a day. Physical therapy should include gait training, core and lumbar strength, glute strength. Posterior precautions intact. WBAT. Prior to discharge, his dressing was changed, incision clean dry and intact, new Aquacel dressing applied. The Aquacel dressing should remain intact and dry at all times. Any concerns with the dressing, please contact orthopedic office. No showering. The plan is to be discharged Time Attestation Discharge Coordination Time (in mins): 30 Quality: Safe Use of Opioids Does Pt have an Active Cancer Diagnosis on the Problem List?: No Quality: Stroke Does the patient have a stroke diagnosis?: No Physical Exam Vital Signs: Vital Signs: Last Vital Signs Temp 97.9 F 04/19/25 07:00 Pulse 79 04/19/25 07:00 Resp 12 04/19/25 07:00 BP 107/56 L 04/19/25 07:00 Pulse Ox 92 04/19/25 07:00 O2 Del Method Room Air 04/19/25 07:00 O2 Flow Rate 2 04/14/25 05:00 Oxygen Flow Rate 2 04/13/25 20:13 BMI result Body Mass Index 42.6 Const: General: cooperative, healthy appearing and no acute distress Resp: Effort & Inspection: normal respiratory effort and able to speak in complete sentences Cardio: Rate: regular rate Peripheral pulses: Peripheral pulses 2+ throughout GI: Palpation (GI): Soft to palpation Skin: Lesions: no lesions Rashes: no rashes Extrem: Other: left hip dressing is c/d/i. Able to dorsi/plantar flex. Calf is supple and nontender. Sensation intact. Pedal pulse intact. DS: Data Data Completed and Pending Completed studies during hospitalization [Text1]: Procedures Replacement of Left Hip Joint, Femoral Surface with Synthetic Substitute, Uncemented, Open Approach (02/06/25) Labs on day of discharge: Laboratory Results - last 24 hr 04/18/25 04/18/25 04/18/25 08:52 11:37 16:08 WBC 5.9 RBC 3.43 L Hgb 10.6 L Hct 31.6 L MCV 92.1 MCH 30.9 MCHC 33.5 RDW 13.2 Plt Count 147 L MPV 9.5 Immature Gran % (Auto) 0.5 H Neut % (Auto) 73.2 H Lymph % (Auto) 12.4 L [place] % (Auto) 13.9 H Eos % (Auto) 0.0 Baso % (Auto) 0.0 Lymph # (Auto) 0.7 L [place] # (Auto) 0.8 Eos # (Auto) 0.0 Baso # (Auto) 0.0 Abs Immat Gran (auto) 0.03 Absolute Neuts (auto) 4.3 Absolute Nucleated RBC 0.000 Nucleated RBC % (auto) 0.0 Sodium 142 Potassium 4.4 Chloride 106 Carbon Dioxide 28 Anion Gap 12 BUN 20 H Creatinine 1.08 Estim Creat Clear Calc 80.4 Estimated GFR > 60 POC Glucose 135 H 147 H Random Glucose 128 H Fasting Glucose Calcium 8.4 04/18/25 04/19/25 04/19/25 20:53 07:11 07:23 WBC 6.3 RBC 3.32 L Hgb 10.3 L Hct 30.0 L MCV 90.4 MCH 31.0 MCHC 34.3 RDW 13.5 Plt Count 154 L MPV 9.4 Immature Gran % (Auto) 0.5 H Neut % (Auto) 66.2 Lymph % (Auto) 16.1 L [place] % (Auto) 16.5 H Eos % (Auto) 0.5 Baso % (Auto) 0.2 Lymph # (Auto) 1.0 L [place] # (Auto) 1.0 Eos # (Auto) 0.0 Baso # (Auto) 0.0 Abs Immat Gran (auto) 0.03 Absolute Neuts (auto) 4.2 Absolute Nucleated RBC 0.000 Nucleated RBC % (auto) 0.0 Sodium Potassium Chloride Carbon Dioxide Anion Gap BUN Creatinine Estim Creat Clear Calc Estimated GFR POC Glucose 119 H 111 Random Glucose Fasting Glucose Calcium 04/19/25 07:26 WBC RBC Hgb Hct MCV MCH MCHC RDW Plt Count MPV Immature Gran % (Auto) Neut % (Auto) Lymph % (Auto) [place] % (Auto) Eos % (Auto) Baso % (Auto) Lymph # (Auto) [place] # (Auto) Eos # (Auto) Baso # (Auto) Abs Immat Gran (auto) Absolute Neuts (auto) Absolute Nucleated RBC Nucleated RBC % (auto) Sodium 142 Potassium 4.2 Chloride 107 Carbon Dioxide 28 Anion Gap 11 L BUN 19 H Creatinine 1.06 Estim Creat Clear Calc 81.9 Estimated GFR > 60 POC Glucose Random Glucose Fasting Glucose 117 H Calcium 8.3 L Discharge Plan Discharge Anticipated Discharge Date/Time: 04/19/25 09:22 Patient Disposition: Home Health Service Discharge Diagnosis: Status post left hip hemiarthroplasty revision Referrals: Cynthia Thompson PA-C [Physician Sash Assembler, Orthopedics] - 1 Week Referral Note: 05/01/25 13:15 [facility] Cynthia Thompson PA-C Po, Lorenver O, MD [Primary Care Provider, Internal Medicine] - 1 Week Discharge Medications: New aspirin 325 mg Tablet 325 mg PO BID 42 Days Qty: 84 0RF acetaminophen 325 mg Tablet 650 mg PO Q6H PRN (Reason: Pain, Mild 1-3,Fever,Headache) 30 Days Qty: 240 0RF oxycodone 5 mg Tablet 5 mg PO Q4H PRN (Reason: Pain, Moderate(Pain Scale 4-6)) 7 Days Qty: 42 0RF Rx Instructions: Partial Fill upon patient request. Continued trazodone 100 mg tablet 100 mg PO BEDTIME 90 Days Qty: 90 3RF lisinopril 5 mg tablet 5 mg PO DAILY Qty: 90 3RF simvastatin 40 mg tablet 40 mg PO BEDTIME Qty: 90 3RF Multivitamin 50 Plus Tablet 1 tab PO DAILY cholecalciferol (vitamin D3) [Vitamin D3] 50 mcg (2,000 unit) Capsule 50 mcg PO DAILY gabapentin 600 mg tablet 600 mg PO BEDTIME lactulose 10 gram/15 mL Solution 20 g PO BID PRN (Reason: Constipation) furosemide 20 mg tablet 20 mg PO MOWEFR@0900 Ozempic 2 mg/dose (8 mg/3 mL) pen injector 2 mg SUBCUT STRATTON fluticasone propionate 50 mcg/actuation spray,suspension 2 spray intranasal BID PRN (Reason: Nasal Congestion) (DME) CPAP 0 .Route .MEDSUPPLY Qty: 1 Discharge Orders: Discharge Order (Routine); Ordered 04/19/25 Ordered By: León Macdonald Diet: Advance to usual diet Activity on Discharge: Use cane or walker Stand Alone Forms: Patient Portal Discharge page Print Language: Swedish Activity Restrictions/Additional Instructions: Topical Wound Care Recommendations: Right Toe - Cleanse dry scabs with Betadine. Cleanse moist wound bed with NS, Pat dry. Apply Durafiber Ag to wound bed cover with dry gauze, ABD pad and wrap. Change every other day. * Physical Therapy for revision hip vishal arthroplasty: wbat, posterior precautions, gait training, ROM, strength * Limit stair climbing * No showering, no tub bath-keep dressing clean, dry and intact * No driving x6 weeks * Continue Aspirin twice a day x 6 weeks * Follow up with [facility] [place] 2 weeks: * -05/01/2513:15 [facility] Surgeons[facility]ynthia Thompson PA-C Care Plan Goals: Restore normal function of left hip, increase stability of left hip hemiarthroplasty Health Concerns: Status post revision of the left hip hemiarthroplasty Plan of Treatment: Physical therapy for total hip hemiarthroplasty revision: WBAT, posterior precautions, gait training, range of motion, strength Limit stair climbing No showering, no tub bath-keep dressing clean dry and intact No driving for 6 weeks Continue aspirin twice a day for 6 weeks Follow-up with [facility] in 2 weeks Assessment: Stable for discharge
--- NOTE | 2025-04-19 09:11 | W.MHC.F2F ---
Service Date Service Date: 04/19/25 Encounter Date of encounter: 04/19/25 Reasons for Services Signs and symptoms assessed: Status post revision left hip hemiarthroplasty due to recurrent dislocation Reason for snf: postoperative assessment and/or care Reason for physical therapy: home safety and mobility, therapeutic exercises, restore joint function, gait/transfer training and ADL training Reason for occupational therapy: home safety and mobility (Patient require home evaluation for safety and prevention of dislocation of left hip hemiarthroplasty), therapeutic exercises, restore joint function, gait/transfer training and ADL training Homebound: Leaving the home is medically contraindicated at this time without the asist of a device and/or another person due th the listed conditions above and below. Reason homebound: unsteady gait / fall risk and unable to drive Certification: Based on the above findings, I certify that this patient is confined to the home and needs intermittent snf care, physical therapy and/or speech therapy, or continues to need occupational therapy. The patient is under my care, and I have initiated the establishment of the plan of care. The patient will be followed by a physician who will periodically review the plan of care. Time Spent With Patient Time: Total time managing care of this patient today ____ minutes.
--- NOTE | 2025-04-19 09:35 | MHC.CM.PN ---
DP: PT HAS BEEN MEDICALLY CLEARED FOR DC HOME WITH [facility] OF [facility]. [facility] UPDATED ON TODAY'S DC. [facility] WILL TRANSPORT HOME THIS AFTERNOON. FINAL IMM ISSUED
[2025-04-19 11:26] LABS: Glucose, Whole Blood 138 mg/dL (60-115)
[2025-04-19 11:32] VITALS: BP 119/56; PULSE 82; RESP 17; TEMP 36.7; O2SAT 92
--- NOTE | 2025-04-19 12:15 | PC.NURSE ---
Pt ambulated in vasques with assist. Dressing to left hip CDI. CMS WNL. Dressing to right foot changed per order, tolerated well. Pt to be discharged home this afternoon
== END 2025-04-19 15:10 | disposition home health service (06) | DRG 467 ==
LOC: HO.ED 19:19 → HO.EDOVER 21:25 → HO.S3 04-14 00:11
PROVIDERS: Orthopaedic Surgery; Physician Assistant; Physician Assistant Medical; Emergency Provider Emergency Medicine; PCP Internal Medicine
PROC: 0SRS0JA Replacement of Left Hip Joint, Femoral Surface with Synthetic Substitute, Uncemented, Open Approach (ICD-10-PCS; principal; 2025-04-17 14:40)
DX: T84.021A Dislocation of internal left hip prosthesis, initial encounter (principal); Z68.41 Body mass index [BMI] 40.0-44.9, adult; Y79.2 Prosthetic and other implants, materials and accessory orthopedic devices associated with adverse incidents; E66.01 Morbid (severe) obesity due to excess calories; G47.33 Obstructive sleep apnea (adult) (pediatric); Z71.3 Dietary counseling and surveillance; I12.9 Hypertensive chronic kidney disease with stage 1 through stage 4 chronic kidney disease, or unspecified chronic kidney disease; J44.9 Chronic obstructive pulmonary disease, unspecified; N18.9 Chronic kidney disease, unspecified; E11.22 Type 2 diabetes mellitus with diabetic chronic kidney disease; D63.1 Anemia in chronic kidney disease; E78.5 Hyperlipidemia, unspecified; Z87.891 Personal history of nicotine dependence; Z79.82 Long term (current) use of aspirin; Z79.899 Other long term (current) drug therapy
CPT/HCPCS: 36415; 72170; 73502; 80048; 80053; 82947; 83036; 83735; 85025; 86850; 86900; 86901; 97116; 97162; 97167; 97530; 99285; C1776; J0131; J0690; J1100; J1171; J1644; J2270; J2405; J2704; J2795; J3010

== ENCOUNTER 2025-04-13 20:33 | Outpatient (BNV) | payer MEDICARE, SELFPAY | END 2025-04-17 16:04 | PROVIDERS: Emergency Provider Emergency Medicine; PCP Internal Medicine; Visit Provider Radiology Diagnostic Radiology | DX: M24.452 Recurrent dislocation, left hip (principal) | CPT/HCPCS: 72170 ==

== ENCOUNTER → 2025-04-13 20:33 | Outpatient (BNV) | payer MEDICARE, SELFPAY | PROVIDERS: Emergency Provider Emergency Medicine; PCP Internal Medicine | DX: Z96.642 Presence of left artificial hip joint (principal); S73.005A Unspecified dislocation of left hip, initial encounter | CPT/HCPCS: 99024 ==

== ENCOUNTER → 2025-04-13 20:33 | Outpatient (BNV) | payer MEDICARE, SELFPAY | PROVIDERS: Emergency Provider Emergency Medicine; PCP Internal Medicine; Visit Provider Physician Assistant | DX: S73.005A Unspecified dislocation of left hip, initial encounter (principal); N17.9 Acute kidney failure, unspecified; N18.9 Chronic kidney disease, unspecified | CPT/HCPCS: 99222 ==

== ENCOUNTER 2025-05-01 09:09 | Outpatient (REF) | payer MEDICARE, SELFPAY ==
--- NOTE | ~2025-05-01 | XR_ITS ---
EXAMINATION: XR HIP, LEFT CLINICAL INFORMATION: M25.559 - Pain in unspecified hip, prior dislocated left acetabular cup COMPARISON: April 13, 2025 TECHNIQUE: AP upright, AP supine, and frog-leg lateral views of the left hip. FINDINGS: Total hip arthroplasty is again noted on the left. Acetabular cup is situated slightly more horizontal than on the prior examination. The acetabular cup is oriented 15 degrees from the horizontal plane through the ischial tuberosities and was previously 25 degrees. The femoral component makes broad cortical contact and demonstrates no migration. Right total hip arthroplasty is now completely imaged and appears stable. There is a cerclage wire around the intertrochanteric region. The proximal end of lateral plate and cortical screws is present on x-ray. The distal end of the femoral stem is not included on x-ray. XR/XR hip LT min 2V IMPRESSION: Total hip arthroplasty on the left. The acetabular cup appears slightly more horizontal in its orientation than on the prior x-ray. Stable right hip arthroplasty, incompletely imaged. Electronically signed by: Herbert Leija MD 05/01/2025 01:02 PM EDT
--- OUTSIDE RECORDS SUMMARY | 2025-05-01 08:51 | XMS_ITS | Continuity of Care Document ---
Author Name [facility] Organization [facility] Care Team Providers Care Java Developer Analyst Name Role Phone [facility] Unavailable Unavailable Problems Combined list of problems from 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 It does not include entries that were removed or entered in error. Problem Status Onset Date Problem Type Date of Resolution Comments Source Hypercholesterolemia Active 019 Condition Feb 14, 2019 Entered By: ALECIA WOOD Comment: treated with medication [facility] Impaired fasting glycaemia (SNOMED [place] [id number]) Active 014 Condition [facility] Tremor Active 010 Condition [facility] Disc Disease Active 009 Condition [facility] Diabetes Mellitus Type 2 ([facility] [id number]) Active Condition [facility] [...] AT BEDTIME ORAL ACTIVE JOSH WOOD [facility] Immunizations Combined list of available immunizations from the 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 Immunization Series Date Given Administered By Site Reaction Lot Number CVX Code Drug Placer Miner Status Comments Source INFLUENZA, UNSPECIFIED FORMULATION 2021 88 complet ed HISTORICA L INFORMATI ON - FROM PATIENT'S RECALL, [facility] COVID-19 (PFIZER), MRNA, LNP-S, PF, 30 MCG/0.3 ML DOSE 3 2020 208 complet ed HISTORICA L INFORMATI ON - FROM PATIENT'S WRITTEN RECORD, [facility] COVID-19 (PFIZER), MRNA, LNP-S, PF, 30 MCG/0.3 ML DOSE 2 2020 208 complet ed HISTORICA L INFORMATI ON - FROM PATIENT'S WRITTEN RECORD, Lot#: [id number] [facility] COVID-19 (PFIZER), MRNA, LNP-S, PF, 30 MCG/0.3 ML DOSE 1 2020 208 complet ed HISTORICA L INFORMATI ON - FROM PATIENT'S WRITTEN RECORD, Lot#: [id number] [facility] INFLUENZA, UNSPECIFIED [...] 06, 2024 07:32 PM Reporting Lab: [facility] [place] [facility] [address] [facility] [address] Performing Lab: [facility] [place] [facility] [address] [facility] [address] [facility] [place] [facility] BASIC METABOLI C PANEL (fasting ) GLUCOSE [MASS/VOLU ME] IN SERUM OR PLASMA 126 mg/dL 65 - 100 02/07 H Specimen Type: SERUM No comment entered. Ordering Provider: LATRICIA WOOD Report Released Date/Time: February 06, 2024 07:32 PM Reporting Lab: [facility] [place] [facility] [address] [facility] [address] Performing Lab: [facility] [place] [facility] [address] [facility] [address] [facility] BASIC METABOLI C PANEL (fasting ) SODIUM [MOLES/VOL UME] IN SERUM OR PLASMA 140 mmol/L 135 - 145 02/07 Specimen Type: SERUM No comment entered. Ordering Provider: LATRICIA WOOD Report Released Date/Time: February 06, 2024 07:32 PM Reporting Lab: [facility] [place] [facility] [address] [facility] [address] Performing Lab: [facility] [place] [address] [address] [facility] [facility] BASIC METABOLI C PANEL (fasting ) POTASSIUM [MOLES/VOL UME] IN SERUM OR PLASMA 4.9 mmol/L 3.5 - 5.0 02/07 Specimen Type: SERUM No comment entered. Ordering Provider: LATRICIA WOOD Report Released Date/Time: February 06, 2024 07:32 PM Reporting Lab: [facility] [place] [facility] [address] [facility] [address] Performing Lab: [facility] [place] [facility] [address] [facility] [address] [facility] BASIC METABOLI C PANEL (fasting ) CHLORIDE [MOLES/VOL UME] IN SERUM OR PLASMA 105 mmol/L 100 - 110 02/07 Specimen Type: SERUM No comment entered. Ordering Provider: LATRICIA WOOD Report Released Date/Time: February 06, 2024 07:32 PM Reporting Lab: [facility] [place] [facility] [address] [facility] [address] Performing Lab: [facility] [place] [facility] [address] [facility] [address] [facility] [place] [facility] BASIC METABOLI C PANEL (fasting ) CARBON DIOXIDE, TOTAL [MOLES/VOL UME] IN SERUM OR PLASMA 25 meq/L 20 - 30 02/07 Specimen Type: SERUM No comment entered. Ordering Provider: LATRICIA WOOD Report Released Date/Time: February 06, 2024 07:32 PM Reporting Lab: [address] [address] Performing Lab: [address] [address] [facility] BASIC METABOLI C PANEL (fasting ) CREATININE [MASS/VOLU ME] IN SERUM OR PLASMA 1.10 mg/dL 0.50 - 1.40 02/07 Specimen Type: SERUM No comment entered. Ordering Provider: LATRICIA WOOD Report Released Date/Time: February 06, 2024 07:32 PM Reporting Lab: [address] [address] Performing Lab: [address] [address] [facility] BASIC METABOLI C PANEL (fasting ) GLOMERULAR FILTRATION RATE/1.73 SQ M.PREDICTE D [VOLUME RATE/AREA] IN SERUM, PLASMA OR BLOOD BY CREATININE -BASED FORMULA (CKD-EPI 2020) 70 mL/min 60 02/07 Specimen Type: SERUM No comment entered. Ordering Provider: LATRICIA WOOD Report Released Date/Time: February 06, 2024 07:32 PM Reporting Lab: [address] [address] Performing Lab: [address] [address] [facility] CBC AND DIFF (AUTO) LEUKOCYTES [#/VOLUME] IN BLOOD BY AUTOMATED COUNT 6.68 10*3/uL 4.50 - 11.00 02/07 Specimen Type: BLOOD No comment entered. Ordering Provider: LATRICIA WOOD Report Released Date/Time: February 06, 2024 07:32 PM Reporting Lab: [facility] [place] [facility] [address] [facility] [address] Performing Lab: [facility] [place] [facility] [address] [facility] [address] [facility] [place] [facility] CBC AND DIFF (AUTO) ERYTHROCYT ES [#/VOLUME] IN BLOOD BY AUTOMATED COUNT 4.23 10*6/uL 4.23 - 5.66 02/07 Specimen Type: BLOOD No comment entered. Ordering Provider: LATRICIA WOOD Report Released Date/Time: February 06, 2024 07:32 PM Reporting Lab: [facility] [place] [facility] [address] [facility] [address] Performing Lab: [facility] [place] [address] [address] [facility] CBC AND DIFF (AUTO) HEMOGLOBIN [MASS/VOLU ME] IN BLOOD 13.7 g/dL 12.8 - 17 02/07 Specimen Type: BLOOD No comment entered. Ordering Provider: LATRICIA WOOD Report Released Date/Time: February 06, 2024 07:32 PM Reporting Lab: [facility] [place] [address] [address] Performing Lab: [facility] [place] [facility] [address] [facility] [address] [facility] [place] [facility] CBC AND DIFF (AUTO) HEMATOCRIT [VOLUME FRACTION] OF BLOOD BY AUTOMATED COUNT 40.4 39.2 - 50.4 02/07 Specimen Type: BLOOD No comment entered. Ordering Provider: LATRICIA WOOD Report Released Date/Time: February 06, 2024 07:32 PM Reporting Lab: [facility] [place] [address] [address] Performing Lab: [facility] [place] [address] [address] [facility] CBC AND DIFF (AUTO) MCV [ENTITIC VOLUME] BY AUTOMATED COUNT 95.5 fL 82 - 99 02/07 Specimen Type: BLOOD No comment entered. Ordering Provider: LATRICIA WOOD Report Released Date/Time: February 06, 2024 07:32 PM Reporting Lab: [facility] [address] [facility] [address] Performing Lab: [facility] [address] [facility] [address] [facility] CBC AND DIFF (AUTO) MCHC [MASS/VOLU ME] BY AUTOMATED COUNT 33.9 g/dL 30.8 - 35.1 02/07 Specimen Type: BLOOD No comment entered. Ordering Provider: LATRICIA WOOD Report Released Date/Time: February 06, 2024 07:32 PM Reporting Lab: [facility] [place] [facility] [address] [facility] [address] Performing Lab: [facility] [place] [facility] [address] [facility] [address] [facility] CBC AND DIFF (AUTO) PLATELETS [#/VOLUME] IN BLOOD BY AUTOMATED COUNT 196 10*3/uL 140 - 360 02/07 Specimen Type: BLOOD No comment entered. Ordering Provider: LATRICIA WOOD Report Released Date/Time: February 06, 2024 07:32 PM Reporting Lab: [facility] [place] [facility] [address] [facility] [address] Performing Lab: [facility] [place] [facility] [address] [facility] [address] [facility] [place] [facility] CBC AND DIFF (AUTO) ERYTHROCYT E DISTRIBUTI ON WIDTH [RATIO] BY AUTOMATED COUNT 12.6 12.0 - 16.0 02/07 Specimen Type: BLOOD No comment entered. Ordering Provider: LATRICIA WOOD Report Released Date/Time: February 06, 2024 07:32 PM Reporting Lab: [facility] [address] [facility] [address] Performing Lab: [facility] [address] [facility] [address] [facility] CBC AND DIFF (AUTO) MONOCYTES [#/VOLUME] IN BLOOD BY AUTOMATED COUNT 0.73 10*3/uL 0.30 - 1.10 02/07 Specimen Type: BLOOD No comment entered. Ordering Provider: LATRICIA WOOD Report Released Date/Time: February 06, 2024 07:32 PM Reporting Lab: [facility] [place] [facility] [address] [facility] [address] Performing Lab: [facility] [place] [facility] [address] [facility] [address] [facility] [place] [facility] CBC AND DIFF (AUTO) MCH [ENTITIC MASS] BY AUTOMATED COUNT 32.4 pg 26.2 - 32.6 02/07 Specimen Type: BLOOD No comment entered. Ordering Provider: LATRICIA WOOD Report Released Date/Time: February 06, 2024 07:32 PM Reporting Lab: [facility] [place] [address] [address] Performing Lab: [facility] [place] [facility] [address] [facility] [address] [facility] [place] [facility] CBC AND DIFF (AUTO) NEUTROPHIL S/100 LEUKOCYTES IN BLOOD BY AUTOMATED COUNT 68.4 43.7 - 75.8 02/07 Specimen Type: BLOOD No comment entered. Ordering Provider: LATRICIA WOOD Report Released Date/Time: February 06, 2024 07:32 PM Reporting Lab: [facility] [place] [facility] [address] [facility] [address] Performing Lab: [facility] [place] [facility] [address] [facility] [address] [facility] [place] [facility] CBC AND DIFF (AUTO) LYMPHOCYTE S/100 LEUKOCYTES IN BLOOD BY AUTOMATED COUNT 16.6 14.0 - 42.3 02/07 Specimen Type: BLOOD No comment entered. Ordering Provider: LATRICIA WOOD Report Released Date/Time: February 06, 2024 07:32 PM Reporting Lab: [facility] [place] [facility] [address] [facility] [address] Performing Lab: [facility] [place] [facility] [address] [facility] [address] [facility] CBC AND DIFF (AUTO) MONOCYTES/ 100 LEUKOCYTES IN BLOOD BY AUTOMATED COUNT 10.9 5.1 - 13.7 02/07 Specimen Type: BLOOD No comment entered. Ordering Provider: LATRICIA WOOD Report Released Date/Time: February 06, 2024 07:32 PM Reporting Lab: [facility] [place] [address] [address] Performing Lab: [facility] [place] [facility] [address] [facility] [address] [facility] [place] CBC AND DIFF (AUTO) EOSINOPHIL S/100 LEUKOCYTES IN BLOOD BY AUTOMATED COUNT 3.1 0.4 - 6.8 02/07 Specimen Type: BLOOD No comment entered. Ordering Provider: LATRICIA WOOD Report Released Date/Time: February 06, 2024 07:32 PM Reporting Lab: [facility] [place] [address] [address] Performing Lab: [facility] [place] [address] [address] [facility] [place] CBC AND DIFF (AUTO) BASOPHILS/ 100 LEUKOCYTES IN BLOOD BY AUTOMATED COUNT 0.7 0.1 - 2.0 02/07 Specimen Type: BLOOD No comment entered. Ordering Provider: LATRICIA WOOD Report Released Date/Time: February 06, 2024 07:32 PM Reporting Lab: [facility] [place] [address] [address] Performing Lab: [facility] [place] [address] [address] [facility] [place] CBC AND DIFF (AUTO) NEUTROPHIL S [#/VOLUME] IN BLOOD BY AUTOMATED COUNT 4.56 10*3/uL 2.20 - 7.60 02/07 Specimen Type: BLOOD No comment entered. Ordering Provider: LATRICIA WOOD Report Released Date/Time: February 06, 2024 07:32 PM Reporting Lab: [facility] [place] [address] [address] Performing Lab: [facility] [place] [facility] [address] [facility] [address] [facility] [place] [facility] CBC AND DIFF (AUTO) LYMPHOCYTE S [#/VOLUME] IN BLOOD BY AUTOMATED COUNT 1.11 10*3/uL 1.00 - 3.20 02/07 Specimen Type: BLOOD No comment entered. Ordering Provider: LATRICIA WOOD Report Released Date/Time: February 06, 2024 07:32 PM Reporting Lab: [facility] [place] [facility] [address] [facility] [address] Performing Lab: [facility] [place] [facility] [address] [facility] [address] [facility] [place] [facility] CBC AND DIFF (AUTO) EOSINOPHIL S [#/VOLUME] IN BLOOD BY AUTOMATED COUNT 0.21 10*3/uL 0.03 - 0.44 02/07 Specimen Type: BLOOD No comment entered. Ordering Provider: LATRICIA WOOD Report Released Date/Time: February 06, 2024 07:32 PM Reporting Lab: [facility] [place] [facility] [address] [facility] [address] Performing Lab: [facility] [place] [facility] [address] [facility] [address] [facility] [place] [facility] CBC AND DIFF (AUTO) BASOPHILS [#/VOLUME] IN BLOOD BY AUTOMATED COUNT 0.05 10*3/uL 0.01 - 0.13 02/07 Specimen Type: BLOOD No comment entered. Ordering Provider: LATRICIA WOOD Report Released Date/Time: February 06, 2024 07:32 PM Reporting Lab: [facility] [place] [facility] [address] [facility] [address] Performing Lab: [facility] [place] [facility] [address] [facility] [address] [facility] [place] [facility] CBC AND DIFF (AUTO) IMMATURE GRANULOCYT ES/100 LEUKOCYTES IN BLOOD BY AUTOMATED COUNT 0.3 0.0 - 0.7 02/07 Specimen Type: BLOOD No comment entered. Ordering Provider: LATRICIA WOOD Report Released Date/Time: February 06, 2024 07:32 PM Reporting Lab: [facility] [address] [facility] [address] Performing Lab: [facility] [address] [facility] [address] [facility] CBC AND DIFF (AUTO) IMMATURE GRANULOCYT ES [#/VOLUME] IN BLOOD 0.02 10*3/uL 0.00 - 0.06 02/07 Specimen Type: BLOOD No comment entered. Ordering Provider: LATRICIA WOOD Report Released Date/Time: February 06, 2024 07:32 PM Reporting Lab: [facility] [address] [facility] [address] Performing Lab: [facility] [address] [address] [facility] HEMOGLOB IN A1C PANEL HEMOGLOBIN A1C/HEMOGL [...] 2024 07:32 PM Reporting Lab: [facility] [address] [facility] [address] Performing Lab: [facility] [address] [facility] [address] [facility] LIPID PANEL FASTING CHOLESTERO L [MASS/VOLU ME] IN SERUM OR PLASMA 162 mg/dL 02/07 Specimen Type: SERUM No comment entered. Ordering Provider: LATRICIA WOOD Report Released Date/Time: February 06, 2024 07:32 PM Reporting Lab: [facility] [address] [facility] [address] Performing Lab: [facility] [place] [facility] [address] [facility] [address] [facility] LIPID PANEL FASTING TRIGLYCERI DE [MASS/VOLU ME] IN SERUM OR PLASMA 112 mg/dL 0 - 150 02/07 Specimen Type: SERUM No comment entered. Ordering Provider: LATRICIA WOOD Report Released Date/Time: February 06, 2024 07:32 PM Reporting Lab: [facility] [place] [facility] [address] [facility] [address] Performing Lab: [facility] [place] [facility] [address] [facility] [address] [facility] [place] [facility] LIPID PANEL FASTING CHOLESTERO L IN LDL [MASS/VOLU ME] IN SERUM OR PLASMA BY CALCULATIO N 98 mg/dL 0 - 129 02/07 Specimen Type: SERUM No comment entered. Ordering Provider: LATRICIA WOOD Report Released Date/Time: February 06, 2024 07:32 PM Reporting Lab: [facility] [place] [facility] [address] [facility] [address] Performing Lab: [facility] [place] [facility] [address] [facility] [address] [facility] [place] [facility] LIPID PANEL FASTING CHOLESTERO L.TOTAL/CH OLESTEROL IN HDL [MASS RATIO] IN SERUM OR PLASMA 3.9 02/07 Specimen Type: SERUM No comment entered. Ordering Provider: LATRICIA WOOD Report Released Date/Time: February 06, 2024 07:32 PM Reporting Lab: [facility] [place] [facility] [address] [facility] [address] Performing Lab: [facility] [place] [facility] [address] [facility] [address] [facility] [place] [facility] LIPID PANEL FASTING CHOLESTERO L IN HDL [MASS/VOLU ME] IN SERUM OR PLASMA 42 mg/dL 40 - 60 02/07 Specimen Type: SERUM No comment entered. Ordering Provider: LATRICIA WOOD Report Released Date/Time: February 06, 2024 07:32 PM Reporting Lab: [facility] [place] [facility] [address] [facility] [address] Performing Lab: [facility] [place] [facility] [address] [facility] [address] [facility] [place] [facility] LIVER FUNCTION PROTEIN [MASS/VOLU ME] IN SERUM OR PLASMA 6.0 g/dL 6.0 - 8.3 02/07 Specimen Type: SERUM No comment entered. Ordering Provider: LATRICIA WOOD Report Released Date/Time: February 06, 2024 07:32 PM Reporting Lab: [facility] [place] [facility] [address] [facility] [address] Performing Lab: [facility] [place] [facility] [address] [facility] [address] [facility] [place] [facility] LIVER FUNCTION ALBUMIN [MASS/VOLU ME] IN SERUM OR PLASMA 3.7 g/dL 3.5 - 5.0 02/07 Specimen Type: SERUM No comment entered. Ordering Provider: LATRICIA WOOD Report Released Date/Time: February 06, 2024 07:32 PM Reporting Lab: [facility] [place] [facility] [address] [facility] [address] Performing Lab: [facility] [place] [facility] [address] [facility] [address] [facility] [place] [facility] LIVER FUNCTION ALKALINE PHOSPHATAS E [ENZYMATIC ACTIVITY/V OLUME] IN SERUM OR PLASMA 41 U/L 40 - 150 02/07 Specimen Type: SERUM No comment entered. Ordering Provider: LATRICIA WOOD Report Released Date/Time: February 06, 2024 07:32 PM Reporting Lab: [facility] [place] [facility] [address] [facility] [address] Performing Lab: [facility] [place] [facility] [address] [facility] [address] [facility] [place] [facility] LIVER FUNCTION ASPARTATE AMINOTRANS FERASE [ENZYMATIC ACTIVITY/V OLUME] IN SERUM OR PLASMA 18 U/L 5 - 34 02/07 Specimen Type: SERUM No comment entered. Ordering Provider: LATRICIA WOOD Report Released Date/Time: February 06, 2024 07:32 PM Reporting Lab: [facility] [place] [facility] [address] [facility] [address] Performing Lab: [facility] [place] [facility] [address] [facility] [address] [facility] [place] [facility] LIVER FUNCTION ALANINE AMINOTRANS FERASE [ENZYMATIC ACTIVITY/V OLUME] IN SERUM OR PLASMA 21 U/L 02/07 Specimen Type: SERUM No comment entered. Ordering Provider: LATRICIA WOOD Report Released Date/Time: February 06, 2024 07:32 PM Reporting Lab: [facility] [place] [facility] [address] [facility] [address] Performing Lab: [facility] [place] [facility] [address] [facility] [address] [facility] [place] [facility] LIVER FUNCTION BILIRUBIN. TOTAL [MASS/VOLU ME] IN SERUM OR PLASMA 0.8 mg/dL 0.2 - 1.2 02/07 Specimen Type: SERUM No comment entered. Ordering Provider: LATRICIA WOOD Report Released Date/Time: February 06, 2024 07:32 PM Reporting Lab: [facility] [place] [facility] [address] [facility] [address] Performing Lab: [facility] [place] [facility] [address] [facility] [address] [facility] [place] [facility] MICROALB UMIN CREATINI NE RATIO PANEL MICROALBUM IN/CREATIN INE [MASS RATIO] IN URINE 12.9 mg/g 0 - 29.9 02/07 Specimen Type: URINE No comment entered. Ordering Provider: LATIRCIA WOOD Report Released Date/Time: February 06, 2024 07:32 PM Reporting Lab: [facility] [place] [facility] [address] [address] Performing Lab: [facility] [place] [facility] [address] [address] [facility] [place] [facility] MICROALB UMIN CREATINI NE RATIO PANEL MICROALBUM IN [MASS/VOLU ME] IN URINE 1.4 mg/dL 02/07 Specimen Type: URINE No comment entered. Ordering Provider: LATRICIA WOOD Report Released Date/Time: February 06, 2024 07:32 PM Reporting Lab: [facility] [place] [address] [address] Performing Lab: [facility] [place] [address] [address] [facility] [place] [facility] MICROALB UMIN CREATINI NE RATIO PANEL CREATININE [MASS/VOLU ME] IN URINE 108.66 mg/dL 02/07 Specimen Type: URINE No comment entered. Ordering Provider: LATRICIA WOOD Report Released Date/Time: February 06, 2024 07:32 PM Reporting Lab: [facility] [address] Performing Lab: [facility] [address] [facility] [place] [facility] TSH THYROTROPI N [UNITS/VOL UME] IN SERUM OR PLASMA 1.39 u[IU]/mL 0.35 - 5.00 02/07 Specimen Type: SERUM No comment entered. Ordering Provider: LATRICIA WOOD Report Released Date/Time: February 06, 2024 07:32 PM Reporting Lab: [facility] [address]OSPITALUSE[address] [address] Performing Lab: PR CNTRL WSTRN [facility] [address] [address] [facility]NOR[facility]ITALTRN [place] [facility] URINALYS IS CLEAN CATCH COLOR OF URINE Light-Ye llow 02/07 Specimen Type: URINE Comment: If Glucose = >500 and Ketones are positive, please alert the Physician. Ordering Provider: LATRICIA WOOD Report Released Date/Time: February 06, 2024 07:32 PM Reporting Lab: [facility]INTERNOR[facility]OSPITALTRN [facility]ITALUSE[address] [address] Performing Lab: [facility] [place] [facility] [address] [facility] [address] [facility] [place] [facility] URINALYS IS CLEAN CATCH APPEARANCE OF URINE Clear 02/07 Specimen Type: URINE Comment: If Glucose = >500 and Ketones are positive, please alert the Physician. Ordering Provider: LATRICIA WOOD Report Released Date/Time: February 06, 2024 07:32 PM Reporting Lab: [facility] [facility] [address] [facility] [address] Performing Lab: [facility] [facility] [address] [facility] [address] [facility] [place] [facility] URINALYS IS CLEAN CATCH GLUCOSE [MASS/VOLU ME] IN URINE NEGATIVE mg/dL 02/07 Specimen Type: URINE Comment: If Glucose = >500 and Ketones are positive, please alert the Physician. Ordering Provider: LATRICIA WOOD Report Released Date/Time: February 06, 2024 07:32 PM Reporting Lab: [facility] [facility] [address] [facility] [address] Performing Lab: [facility] [facility] [address] [facility] [address] [facility] [place] [facility] URINALYS IS CLEAN CATCH KETONES [MASS/VOLU ME] IN URINE BY TEST STRIP NEGATIVE mg/dL 02/07 Specimen Type: URINE Comment: If Glucose = >500 and Ketones are positive, please alert the Physician. Ordering Provider: LATRICIA WOOD Report Released Date/Time: February 06, 2024 07:32 PM Reporting Lab: [facility] [place] [facility] [address] [facility] [address] Performing Lab: [facility] [facility] [address] [facility] [address] [facility] [place] [facility] URINALYS IS CLEAN CATCH ERYTHROCYT ES [PRESENCE] IN URINE SEDIMENT BY LIGHT MICROSCOPY NEGATIVE mg/dL 02/07 Specimen Type: URINE Comment: If Glucose = >500 and Ketones are positive, please alert the Physician. Ordering Provider: LATRICIA WOOD Report Released Date/Time: February 06, 2024 07:32 PM Reporting Lab: [facility] [place] [facility] [address] [facility] [address] Performing Lab: [facility] [place] [facility] [address] [facility] [address] [facility] [place] [facility] URINALYS IS CLEAN CATCH PROTEIN [MASS/VOLU ME] IN URINE BY TEST STRIP NEGATIVE mg/dL 02/07 Specimen Type: URINE Comment: If Glucose = >500 and Ketones are positive, please alert the Physician. Ordering Provider: LATRICIA WOOD Report Released Date/Time: February 06, 2024 07:32 PM Reporting Lab: [facility] [place] [facility] [address] [facility] [address] Performing Lab: [facility] [place] [facility] [address] [facility] [address] [facility] [place] [facility] URINALYS IS CLEAN CATCH NITRITE [PRESENCE] IN URINE NEGATIVE mg/dL 02/07 Specimen Type: URINE Comment: If Glucose = >500 and Ketones are positive, please alert the Physician. Ordering Provider: LATRICIA WOOD Report Released Date/Time: February 06, 2024 07:32 PM Reporting Lab: [facility] [place] [facility] [address] [facility] [address] Performing Lab: [facility] [place] [facility] [address] [facility] [address] [facility] [place] [facility] URINALYS IS CLEAN CATCH BILIRUBIN. TOTAL [PRESENCE] IN URINE NEGATIVE mg/dL 02/07 Specimen Type: URINE Comment: If Glucose = >500 and Ketones are positive, please alert the Physician. Ordering Provider: LATRICIA WOOD Report Released Date/Time: February 06, 2024 07:32 PM Reporting Lab: [facility] [place] [facility] [address] [facility] [address] Performing Lab: [facility] [place] [facility] [address] [facility] [address] [facility] [place] [facility] URINALYS IS CLEAN CATCH SPECIFIC GRAVITY OF URINE BY REFRACTOME TRY 1.018 1.016 - 1.022 02/07 Specimen Type: URINE Comment: If Glucose = >500 and Ketones are positive, please alert the Physician. Ordering Provider: LATRICIA WOOD Report Released Date/Time: February 06, 2024 07:32 PM Reporting Lab: [facility] [address] [address] Performing Lab: [facility] POINTERNOR[facility] HOSPITALTRN [facility]ITALUSE[address] [address] [facility]ITAL[facility] URINALYS IS CLEAN CATCH PH OF URINE BY TEST STRIP 6.0 5.0 - 9.0 02/07 Specimen Type: URINE Comment: If Glucose = >500 and Ketones are positive, please alert the Physician. Ordering Provider: LATRICIA WOOD Report Released Date/Time: February 06, 2024 07:32 PM Reporting Lab: [facility] MAS[place]SE[address] [address] Performing Lab: [facility]INTERNOR[facility]ITALTRN [facility] [address] [facility] [address] [facility]ANN [facility] URINALYS IS CLEAN CATCH UROBILINOG EN [MASS/VOLU ME] IN URINE BY TEST STRIP <2.0mg/d L <2.0 - 2.0 02/07 Specimen Type: URINE Comment: If Glucose = >500 and Ketones are positive, please alert the Physician. Ordering Provider: LATRICIA WOOD Report Released Date/Time: February 06, 2024 07:32 PM Reporting Lab: [facility]INTER[facility]OSPITALTRN [place] [facility] [address] [facility] [address] Performing Lab: [facility]INTERNOR[facility]PITALTRN [place] [facility] [address] [facility] [address] [facility]INTER[facility]OSPITALTRN [place] [facility] URINALYS IS CLEAN CATCH LEUKOCYTE ESTERASE [PRESENCE] IN URINE BY TEST STRIP NEGATIVE 02/07 Specimen Type: URINE Comment: If Glucose = >500 and Ketones are positive, please alert the Physician. Ordering Provider: LATRICIA WOOD Report Released Date/Time: February 06, 2024 07:32 PM Reporting Lab: [facility] [place] [facility] [address] [facility] [address] Performing Lab: [facility] [place] [facility] [address] [facility] [address] [facility] [place] [facility] Encounters Combined list of: 1) Encounters [...] Disposition Source [facility] [place] [facility] CPTR OPHTH DX IMG POST SEGMT [id number] Diagnos is: ICD-10- CM H40.013 Open angle with borderl ine finding s, low risk, bilater al HAILEY LOWRYE 12/22 [facility] [place] [facility] [place] [facility] COMPRE OPH EXAM EST PT 1/> [id number] Diagnos is: ICD-10- CM E11.9 Type 2 diabete s mellitu s without complic ations HAILEY LOWRY NEETU 12/22 [facility] [place] [facility] CN[facility]L [facility] [place] [facility] FIT SPECTACLES MONOFOCAL [id number] Diagnos is: ICD-10- CM Z46.0 Encount er for fit/adj st of spectac les and contact lenses HAILEY LOWRYE 12/22 [facility] [place] [facility] [place] [facility] OFFICE O/P EST LOW 20 MIN [id number] Diagnos is: ICD-10- CM E11.9 Type 2 diabete s mellitu s without complic ations MARINA WOOD RD 02/13 [facility] [place] [facility] [place] [facility] Outpatient Encounter [id number] 02/17 [facility] [place] [facility] [place] [facility] Outpatient Encounter [id number] 02/22 [facility] [place] [facility] [facility] Outpatient Encounter [id number] 04/23 [facility] [place] [facility]L [place] [place] [facility] Outpatient Encounter [id number] 04/23 [facility] [place] [place] [facility] Social History Combined list of available smoking, tobacco, and other social history from 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 Social History Type Response Date Comment Source Tobacco smoking status [facility]-TOBACCO QUIT 15 YRS OR MORE 02/14/2024 [facility] [place] [facility] History of tobacco use PR-TOBACCO FORMER USER 02/14/2024 [facility] [place] [facility] History of tobacco use PR-TOBACCO FORMER USER 02/12/2023 [facility] [place] [facility] of [facility]2022 [facility] [place] [facility] History of tobacco use PR-TOBACCO FORMER USER 02/11/2021 [facility] [place] [facility] of [facility] 12/22/2019 [facility] [place] [facility] History of tobacco use PR-TOBACCO NEVER USED 02/17/2018 [facility] [place] [facility] History of tobacco use LIFETIME NON-TOBACCO USER 02/17/2018 [facility] [place] [facility] History of tobacco use QUIT TOBACCO USE > 7 YEARS AGO 03/02/2016 PT STATES HE STOPEED 20 YRS AGO. [facility] [place] [facility] History of tobacco use QUIT TOBACCO USE > 7 YEARS AGO 04/18/2010 [facility] [place] [facility] Plan of Care List of future care activities from Department of 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 Additional future care activities may be listed in the Assessment and Plan section. Date/Time Care Activity Care Activity Detail Facili ty 11/01/2025 AMBULATORY - MEDICINE AMBULATORY - MEDICI [facility] Advance Directives List of completed, amended, or rescinded Advance Directives on record at Department of [facility] facilities. An actual copy of the Directive is not included. Date Advance Directive Provider Source 02/18/2024 ADVANCE DIRECTIVE ALECIA WOOD [facility]
--- OUTSIDE RECORDS SUMMARY | 2025-05-02 09:51 | XMS_ITS | Patient Health Record ---
[facility] Address [address] [place] [address] Care Team Providers Care Core Checker Name Role Phone Daniel Romano Primary Care Provider Chantel Smith Unavailable [phone] Rayshawn Avendaño Unavailable [phone] Allergies Allergen (clinical drug ingredient) Drug/Non Drug [...] Polyneuropathy due to type 2 diabetes mellitus (958857771) Type 2 diabetes mellitus with diabetic polyneuropathy (E11.42) Active confirmed Vital Signs Blood pressure diastolic 65 mm Hg 03/28/2025 Height 5ft 9.5in in 03/28/2025 Blood pressure systolic 128 mm Hg 03/28/2025 Weight 270 lbs 03/28/2025 BMI 39.3 kg/m2 03/28/2025 Procedures Procedure Date Ordered Date Performed Result Body Sit e 56096-CUDEXNC NAIL, 6 OR MORE 07/19/2024 N/A 75609-JFIZ SKIN LESIONS, 2 TO 4 07/19/2024 N/A 98858-ZBIWEAZ NAIL, 6 OR MORE 10/24/2024 N/A 37413-HCEK SKIN LESIONS, 2 TO 4 10/24/2024 N/A 44925-HTXBRNK NAIL, 6 OR MORE 03/28/2025 N/A 88447-FGUR SKIN LESIONS, 2 TO 4 03/28/2025 N/A Encounters Encounter Location Date Provider Diagnosis [address] [address] 07/19/2024 Chantel Naresh Type 2 diabetes mellitus with diabetic polyneuropathy E11.42 and Tinea unguium B35.[address] [address] 10/24/2024 Rayshawn Avendaño Type 2 diabetes mellitus with diabetic polyneuropathy E11.42 and Tinea unguium B35.[address] [address] 03/28/2025 Chantel Infante Type 2 diabetes mellitus with diabetic polyneuropathy E11.42 and Tinea unguium B35.[address] [address] 02/09/2025 Chantel Infante Assessments Encounter Date Diagnosis [...] Order Date *Liver Function Test (LFT) 12/16/2016 18868-ZOQGFSL NAIL, 6 OR MORE 03/17/2017 46106-UPYCZQJ NAIL, 6 OR MORE 06/16/2017 77524-OUXXEWI NAIL, 6 OR MORE 09/15/2017 87437-UMGNYQM NAIL, 6 OR MORE 12/15/2017 75018-AIYXJOV NAIL, 6 OR MORE 03/21/2018 81836-EKKNUHV NAIL, 6 OR MORE 06/27/2018 67361-OIHEOXG NAIL, 6 OR MORE 07/19/2024 42137-OSUNZEP NAIL, 6 OR MORE 10/24/2024 80793-HMYLVRP NAIL, 6 OR MORE 03/28/2025 64396-ZDIVYUN NAIL, 6 OR MORE 12/16/2016 13325-UBTS SKIN LESIONS, OVER 4 09/28/19 19 67502-VUMD SKIN LESIONS, OVER 4 06/27/20 18 01948-DNYV SKIN LESIONS, OVER 4 03/21/20 18 29065-RFJD SKIN LESIONS, OVER 4 03/29/20 19 55455-VCIL SKIN LESIONS, OVER 4 07/03/20 19 23320-MIVX SKIN LESIONS, OVER 4 10/09/19 20 06558-UJDN SKIN LESIONS, OVER 4 01/10/20 20 94562-BLOE SKIN LESIONS, OVER 4 04/10/20 20 93113-XXFO SKIN LESIONS, OVER 4 07/10/20 20 03567-NWII SKIN LESIONS, OVER 4 10/02/19 21 06604-ZBUT SKIN LESIONS, OVER 4 01/02/20 21 23193-NNSL SKIN LESIONS, OVER 4 04/03/20 21 03638-JCSP SKIN LESIONS, OVER 4 07/16/20 21 47100-JBWK SKIN LESIONS, OVER 4 11/13/19 22 75429-OKLA SKIN LESIONS, 2 TO 4 12/16/19 18 83258-YXZR SKIN LESIONS, 2 TO 4 01/05/20 19 55388-TTIC SKIN LESIONS, 2 TO 4 07/19/20 24 21239-VCDM SKIN LESIONS, 2 TO 4 03/28/20 25 90836-UPZZ SKIN LESIONS, 2 TO 4 10/24/19 25 68019-VNXWGJLA OF HEMATOMA/FLUID 023 Next Appt Details Provider Name:Chantel Azar cooper, 06/28/2025 03:45:00 PM, [address] [facility], [place], [address], Insurance Providers Payer Name Payer Address Payer Phone Subscriber Number Group Number Insured Name Patient Relationship to Insured Coverage Start Date Coverage End Date Medicare National Govt Sv[employer] [address] [place] [address] [id number] Festus Munoz Self - patient is the insured 2 [facility] [address] [place] [address] [id number] Festus Munoz Self - patient is the [...]
--- OUTSIDE RECORDS SUMMARY | 2025-05-02 09:51 | XMS_ITS | Patient Health Record ---
Author Organization [facility] Address [address] [place] [address] Care Team Providers Care Floorleader Name Role Phone Daniel Romano MD Primary Care Provider Mac Rose [phone] Allergies Allergen (clinical drug ingredient) Drug/Non Drug [...] Problem Status W/U Status Risk Notes Problem [id number] Encounter for screening for malignant neoplasm of colon (Z12.11) Active confirmed Problem [id number] Aspirin long-term use (Z79.82) Active confirmed Problem 38412440 Hypertension, unspecified type (I10) Active confirmed Plan Of Treatment Future Test Test Name Order Date COLONOSCOPY 12/30/2017 Insurance Providers Payer Name Payer Address Payer Phone Subscriber Number Group Number Insured Name Patient Relationship to Insured Coverage Start Date Coverage End Date MEDICARE OF [place] [address] [place] [address] [id number] VEE SAL Self - patient is the insured MEDICAID OF [facility] [address] [place] [phone] [id number] VEE SAL Self - patient is the insured Medical (General) History Medical History History ICD Code Denies [place],CVA,renal disease COPD NIDDM Neuropathy in feet Sleep apnea--uses CPAP Negative colonoscopies in 31 12 and 2006 other than diverticulosis and internal hemorrhoids Surgical History Surgery Date(Month/Year) Left knee replacement 2015 Right knee replacement 2014 Right hip replacement 2013 Metal plates due to femur surgery 2016 Pericarditis with pericardectomy in the Rectal fistula Lumbar disc
== END 2025-05-01 09:10 | disposition home or self-care (01) ==
LOC: HO.HOSX 09:09
PROVIDERS: Visit Provider Physician Assistant
DX: Z47.1 Aftercare following joint replacement surgery (principal); M25.552 Pain in left hip; Z96.642 Presence of left artificial hip joint
CPT/HCPCS: 73502; 99212

== ENCOUNTER 2025-05-01 12:41 | Outpatient (AMB) | payer MEDICARE, SELFPAY ==
--- OUTSIDE RECORDS SUMMARY | 2025-05-01 08:51 | XMS_ITS | Continuity of Care Document ---
Author Name [facility] Organization [facility] Care Team Providers Care Vehicle Damage Appraiser Name Role Phone [facility] Unavailable Unavailable Problems Combined list of problems from 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 It does not include entries that were removed or entered in error. Problem Status Onset Date Problem Type Date of Resolution Comments Source Hypercholesterolemia Active 019 Condition Feb 14, 2019 Entered By: ALECIA WOOD Comment: treated with medication [facility] Impaired fasting glycaemia (SNOMED CT [id number]) Active 014 Condition [facility] Tremor Active 010 Condition [facility] Disc Disease Active 009 Condition [facility] Diabetes Mellitus Type 2 ([facility] [id number]) Active Condition [facility] [...] AT BEDTIME ORAL ACTIVE [facility]OSH [facility]OD [facility] Immunizations Combined list of available immunizations from the 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 [place] COVID-19 (PFIZER), MRNA, LNP-S, PF, 30 MCG/0.3 ML DOSE 3 2020 208 complet ed HISTORICA L INFORMATI ON - FROM PATIENT'S WRITTEN RECORD[facility] COVID-19 (PFIZER), MRNA, LNP-S, PF, 30 MCG/0.3 ML DOSE 2 2020 208 complet ed HISTORICA L INFORMATI ON - FROM PATIENT'S WRITTEN RECORD, Lot#: [id number] [facility]-19 (PFIZER), MRNA, LNP-S, PF, 30 MCG/0.3 ML DOSE 1 2020 208 complet ed HISTORICA L INFORMATI ON - FROM PATIENT'S WRITTEN RECORD, Lot#: [id number] [facility] INFLUENZA, UNSPECIFIED [...] February 06, 2024 07:32 PM Reporting Lab: [facility] [place] [facility] [address] [facility] [address] Performing Lab: [facility] [address] [facility] [address] [facility] LIVER FUNCTION ALBUMIN [MASS/VOLU ME] IN SERUM OR PLASMA 3.7 g/dL 3.5 - 5.0 02/07 Specimen Type: SERUM No comment entered. Ordering Provider: LATRICIA WOOD Report Released Date/Time: February 06, 2024 07:32 PM Reporting Lab: [facility] [place] [facility] [address] [facility] [address] Performing Lab: [facility] [place] [facility] [address] [facility] [address] [facility] LIVER FUNCTION ALKALINE PHOSPHATAS E [ENZYMATIC ACTIVITY/V OLUME] IN SERUM OR PLASMA 41 U/L 40 - 150 02/07 Specimen Type: SERUM No comment entered. Ordering Provider: LATRICIA WOOD Report Released Date/Time: February 06, 2024 07:32 PM Reporting Lab: [facility] [place] [facility] [address] [facility] [address] Performing Lab: [facility] [place] [facility] [address] [facility] [address] [facility] [facility] LIVER FUNCTION ASPARTATE AMINOTRANS FERASE [ENZYMATIC ACTIVITY/V OLUME] IN SERUM OR PLASMA 18 U/L 5 - 34 02/07 Specimen Type: SERUM No comment entered. Ordering Provider: LATRICIA WOOD Report Released Date/Time: February 06, 2024 07:32 PM Reporting Lab: [facility] [place] [facility] [address] [facility] [address] Performing Lab: [facility] [place] [facility] [address] [facility] [address] [facility] LIVER FUNCTION ALANINE AMINOTRANS FERASE [ENZYMATIC ACTIVITY/V OLUME] IN SERUM OR PLASMA 21 U/L 02/07 Specimen Type: SERUM No comment entered. Ordering Provider: LATRICIA WOOD Report Released Date/Time: February 06, 2024 07:32 PM Reporting Lab: [facility] [place] [facility] [address] [facility] [address] Performing Lab: [facility] [place] [facility] [address] [facility] [address] [facility] LIVER FUNCTION BILIRUBIN. TOTAL [MASS/VOLU ME] IN SERUM OR PLASMA 0.8 mg/dL 0.2 - 1.2 02/07 Specimen Type: SERUM No comment entered. Ordering Provider: LATRICIA WOOD Report Released Date/Time: February 06, 2024 07:32 PM Reporting Lab: [facility] [address] [facility] [address] Performing Lab: [facility] [address] [facility] [address] [facility] BASIC METABOLI C PANEL (fasting ) UREA NITROGEN [MASS/VOLU ME] IN SERUM OR PLASMA 14 mg/dL 7 - 25 02/07 Specimen Type: SERUM No comment entered. Ordering Provider: LATRICIA WOOD Report Released Date/Time: February 06, 2024 07:32 PM Reporting Lab: [facility] [address] [address] Performing Lab: [facility]ENTERUSE[address] [address] [facility]ENTERUSE [facility] BASIC METABOLI C PANEL (fasting ) GLUCOSE [MASS/VOLU ME] IN SERUM OR PLASMA 126 mg/dL 65 - 100 02/07 H Specimen Type: SERUM No comment entered. Ordering Provider: LATRICIA WOOD Report Released Date/Time: February 06, 2024 07:32 PM Reporting Lab: [facility] [address] [address] Performing Lab: [facility]ENTERUSE[address] [address] [facility]ENTERUSE [facility] BASIC METABOLI C PANEL (fasting ) SODIUM [MOLES/VOL UME] IN SERUM OR PLASMA 140 mmol/L 135 - 145 02/07 Specimen Type: SERUM No comment entered. Ordering Provider: LATRICIA WOOD Report Released Date/Time: February 06, 2024 07:32 PM Reporting Lab: [facility]ENTERUSE[address] [address] Performing Lab: [facility]ENTERUSE[address] [address] [facility]TRN [place] [facility] BASIC METABOLI C PANEL (fasting ) POTASSIUM [MOLES/VOL UME] IN SERUM OR PLASMA 4.9 mmol/L 3.5 - 5.0 02/07 Specimen Type: SERUM No comment entered. Ordering Provider: LATRICIA WOOD Report Released Date/Time: February 06, 2024 07:32 PM Reporting Lab: [facility] [place] [address] [address] Performing Lab: [facility] WSTRN [facility] [address] [facility] [address] [facility] BASIC METABOLI C PANEL (fasting ) CHLORIDE [MOLES/VOL UME] IN SERUM OR PLASMA 105 mmol/L 100 - 110 02/07 Specimen Type: SERUM No comment entered. Ordering Provider: LATRICIA WOOD Report Released Date/Time: February 06, 2024 07:32 PM Reporting Lab: [facility]TRN MASSUSE[address] [address] Performing Lab: [facility] W[facility]N [facility]ENTERUSE[address] [address] [facility]TRN [facility]ENTERUSE [facility] BASIC METABOLI C PANEL (fasting ) CARBON DIOXIDE, TOTAL [MOLES/VOL UME] IN SERUM OR PLASMA 25 meq/L 20 - 30 02/07 Specimen Type: SERUM No comment entered. Ordering Provider: LATRICIA WOOD Report Released Date/Time: February 06, 2024 07:32 PM Reporting Lab: [facility] [place] [address] [address] Performing Lab: [facility] W[facility]ENTERUSE[address] [address] [facility]TRN [place] [facility] BASIC METABOLI C PANEL (fasting ) CREATININE [MASS/VOLU ME] IN SERUM OR PLASMA 1.10 mg/dL 0.50 - 1.40 02/07 Specimen Type: SERUM No comment entered. Ordering Provider: LATRICIA WOOD Report Released Date/Time: February 06, 2024 07:32 PM Reporting Lab: [facility] [place] [facility] [address] [facility] [address] Performing Lab: [facility] [place] [facility] [address] [facility] [address] [facility] BASIC METABOLI C PANEL (fasting ) GLOMERULAR FILTRATION RATE/1.73 SQ M.PREDICTE D [VOLUME RATE/AREA] IN SERUM, PLASMA OR BLOOD BY CREATININE -BASED FORMULA (CKD-EPI 2020) 70 mL/min 60 02/07 Specimen Type: SERUM No comment entered. Ordering Provider: LATRICIA WOOD Report Released Date/Time: February 06, 2024 07:32 PM Reporting Lab: [facility] [place] [facility] [address] [facility] [address] Performing Lab: [facility] [place] [facility] [address] [facility] [address] [facility] [place] [facility] CBC AND DIFF (AUTO) LEUKOCYTES [#/VOLUME] IN BLOOD BY AUTOMATED COUNT 6.68 10*3/uL 4.50 - 11.00 02/07 Specimen Type: BLOOD No comment entered. Ordering Provider: LATRICIA OWOD Report Released Date/Time: February 06, 2024 07:32 PM Reporting Lab: [facility] [place] [facility] [address] [facility] [address] Performing Lab: [facility] [place] [facility] [address] [facility] [address] [facility] [place] [facility] CBC AND DIFF (AUTO) ERYTHROCYT ES [#/VOLUME] IN BLOOD BY AUTOMATED COUNT 4.23 10*6/uL 4.23 - 5.66 02/07 Specimen Type: BLOOD No comment entered. Ordering Provider: LATRICIA WOOD Report Released Date/Time: February 06, 2024 07:32 PM Reporting Lab: [facility] [place] [facility] [address] [facility] [address] Performing Lab: [facility] [place] [facility] [address] [facility] [address] [facility] [facility] CBC AND DIFF (AUTO) HEMOGLOBIN [MASS/VOLU ME] IN BLOOD 13.7 g/dL 12.8 - 17 02/07 Specimen Type: BLOOD No comment entered. Ordering Provider: LATRICIA WOOD Report Released Date/Time: February 06, 2024 07:32 PM Reporting Lab: [facility] [place] [facility] [address] [facility] [address] Performing Lab: [facility] [place] [facility] [address] [facility] [address] [facility] [place] [facility] CBC AND DIFF (AUTO) HEMATOCRIT [VOLUME FRACTION] OF BLOOD BY AUTOMATED COUNT 40.4 39.2 - 50.4 02/07 Specimen Type: BLOOD No comment entered. Ordering Provider: LATRICIA WOOD Report Released Date/Time: February 06, 2024 07:32 PM Reporting Lab: [facility] [place] [facility] [address] [facility] [address] Performing Lab: [facility] [place] [facility] [address] [facility] [address] [facility] [place] [facility] CBC AND DIFF (AUTO) MCV [ENTITIC VOLUME] BY AUTOMATED COUNT 95.5 fL 82 - 99 02/07 Specimen Type: BLOOD No comment entered. Ordering Provider: LATRICIA WOOD Report Released Date/Time: February 06, 2024 07:32 PM Reporting Lab: [facility] [place] [facility] [address] [facility] [address] Performing Lab: [facility] [place] [facility] [address] [facility] [address] [facility] [facility] CBC AND DIFF (AUTO) MCHC [MASS/VOLU ME] BY AUTOMATED COUNT 33.9 g/dL 30.8 - 35.1 02/07 Specimen Type: BLOOD No comment entered. Ordering Provider: LATRICIA WOOD Report Released Date/Time: February 06, 2024 07:32 PM Reporting Lab: [facility] [place] [facility] [address] [facility] [address] Performing Lab: [facility] [place] [facility] [address] [facility] [address] [facility] [place] [facility] CBC AND DIFF (AUTO) PLATELETS [#/VOLUME] IN BLOOD BY AUTOMATED COUNT 196 10*3/uL 140 - 360 02/07 Specimen Type: BLOOD No comment entered. Ordering Provider: LATRICIA WOOD Report Released Date/Time: February 06, 2024 07:32 PM Reporting Lab: [facility] [place] [facility] [address] [facility] [address] Performing Lab: [facility] [place] [facility] [address] [facility] [address] [facility]TR[facility] [place] [facility] CBC AND DIFF (AUTO) ERYTHROCYT E DISTRIBUTI ON WIDTH [RATIO] BY AUTOMATED COUNT 12.6 12.0 - 16.0 02/07 Specimen Type: BLOOD No comment entered. Ordering Provider: LATRICIA WOOD Report Released Date/Time: February 06, 2024 07:32 PM Reporting Lab: [facility]TR[facility] [place] [address] [address] Performing Lab: [facility] [place] [facility] [address] [facility] [address] [facility]TRN [place] [facility] CBC AND DIFF (AUTO) MONOCYTES [#/VOLUME] IN BLOOD BY AUTOMATED COUNT 0.73 10*3/uL 0.30 - 1.10 02/07 Specimen Type: BLOOD No comment entered. Ordering Provider: LATRICIA WOOD Report Released Date/Time: February 06, 2024 07:32 PM Reporting Lab: [facility] [place] [facility] [address] [facility] [address] Performing Lab: [facility] [place] [facility] [address] [facility] [address] [facility] [facility] CBC AND DIFF (AUTO) MCH [ENTITIC MASS] BY AUTOMATED COUNT 32.4 pg 26.2 - 32.6 02/07 Specimen Type: BLOOD No comment entered. Ordering Provider: LATRICIA WOOD Report Released Date/Time: February 06, 2024 07:32 PM Reporting Lab: [facility] [place] [address] [address] Performing Lab: [facility] [place] [facility] [address] [facility] [address] [facility] CBC AND DIFF (AUTO) NEUTROPHIL S/100 LEUKOCYTES IN BLOOD BY AUTOMATED COUNT 68.4 43.7 - 75.8 02/07 Specimen Type: BLOOD No comment entered. Ordering Provider: LATRICIA WOOD Report Released Date/Time: February 06, 2024 07:32 PM Reporting Lab: [facility] [address] [facility] [address] Performing Lab: [facility] [address] [facility] [address] [facility] CBC AND DIFF (AUTO) LYMPHOCYTE S/100 LEUKOCYTES IN BLOOD BY AUTOMATED COUNT 16.6 14.0 - 42.3 02/07 Specimen Type: BLOOD No comment entered. Ordering Provider: LATRICIA WOOD Report Released Date/Time: February 06, 2024 07:32 PM Reporting Lab: [facility] [address] [facility] [address] Performing Lab: [facility] [address] [facility] [address] [facility] [place] CBC AND DIFF (AUTO) MONOCYTES/ 100 LEUKOCYTES IN BLOOD BY AUTOMATED COUNT 10.9 5.1 - 13.7 02/07 Specimen Type: BLOOD No comment entered. Ordering Provider: LATRICIA WOOD Report Released Date/Time: February 06, 2024 07:32 PM Reporting Lab: [facility] [address] [facility] [address] Performing Lab: [facility] [address] [facility] [address] [facility] CBC AND DIFF (AUTO) EOSINOPHIL S/100 LEUKOCYTES IN BLOOD BY AUTOMATED COUNT 3.1 0.4 - 6.8 02/07 Specimen Type: BLOOD No comment entered. Ordering Provider: LATRICIA WOOD Report Released Date/Time: February 06, 2024 07:32 PM Reporting Lab: [facility] [place] [facility] [address] [facility] [address] Performing Lab: [facility] [place] [facility] [address] [facility] [address] [facility] [place] [facility] CBC AND DIFF (AUTO) BASOPHILS/ 100 LEUKOCYTES IN BLOOD BY AUTOMATED COUNT 0.7 0.1 - 2.0 02/07 Specimen Type: BLOOD No comment entered. Ordering Provider: LATRICIA WOOD Report Released Date/Time: February 06, 2024 07:32 PM Reporting Lab: [facility] [place] [facility] [address] [facility] [address] Performing Lab: [facility] [place] [facility] [address] [facility] [address] [facility] [place] [facility] CBC AND DIFF (AUTO) NEUTROPHIL S [#/VOLUME] IN BLOOD BY AUTOMATED COUNT 4.56 10*3/uL 2.20 - 7.60 02/07 Specimen Type: BLOOD No comment entered. Ordering Provider: LATRICIA WOOD Report Released Date/Time: February 06, 2024 07:32 PM Reporting Lab: [facility] [place] [facility] [address] [facility] [address] Performing Lab: [facility] [place] [facility] [address] [facility] [address] [facility] [place] [facility] CBC AND DIFF (AUTO) LYMPHOCYTE S [#/VOLUME] IN BLOOD BY AUTOMATED COUNT 1.11 10*3/uL 1.00 - 3.20 02/07 Specimen Type: BLOOD No comment entered. Ordering Provider: LATRICIA WOOD Report Released Date/Time: February 06, 2024 07:32 PM Reporting Lab: [facility] [place] [facility] [address] [facility] [address] Performing Lab: [facility] [place] [facility] [address] [facility] [address] [facility] [place] [facility] CBC AND DIFF (AUTO) EOSINOPHIL S [#/VOLUME] IN BLOOD BY AUTOMATED COUNT 0.21 10*3/uL 0.03 - 0.44 02/07 Specimen Type: BLOOD No comment entered. Ordering Provider: LATRICIA WOOD Report Released Date/Time: February 06, 2024 07:32 PM Reporting Lab: [facility] [place] [facility] [address] [facility] [address] Performing Lab: [facility] [place] [facility] [address] [facility] [address] [facility] [place] [facility] CBC AND DIFF (AUTO) BASOPHILS [#/VOLUME] IN BLOOD BY AUTOMATED COUNT 0.05 10*3/uL 0.01 - 0.13 02/07 Specimen Type: BLOOD No comment entered. Ordering Provider: LATRICIA WOOD Report Released Date/Time: February 06, 2024 07:32 PM Reporting Lab: [facility] [place] [facility] [address] [facility] [address] Performing Lab: [facility] [place] [address] [address] [facility] [place] [facility] CBC AND DIFF (AUTO) IMMATURE GRANULOCYT ES/100 LEUKOCYTES IN BLOOD BY AUTOMATED COUNT 0.3 0.0 - 0.7 02/07 Specimen Type: BLOOD No comment entered. Ordering Provider: LATRICIA WOOD Report Released Date/Time: February 06, 2024 07:32 PM Reporting Lab: [facility] [place] [facility] [address] [facility] [address] Performing Lab: [facility] [place] [address] [address] [facility] [place] [facility] CBC AND DIFF (AUTO) IMMATURE GRANULOCYT ES [#/VOLUME] IN BLOOD 0.02 10*3/uL 0.00 - 0.06 02/07 Specimen Type: BLOOD No comment entered. Ordering Provider: LATRICIA WOOD Report Released Date/Time: February 06, 2024 07:32 PM Reporting Lab: [facility] [place] [facility] [address] [facility] [address] Performing Lab: [facility] [place] [address] [address] [facility] [place] [facility] TSH THYROTROPI N [UNITS/VOL UME] IN SERUM OR PLASMA 1.39 u[IU]/mL 0.35 - 5.00 02/07 Specimen Type: SERUM No comment entered. Ordering Provider: LATRICIA WOOD Report Released Date/Time: February 06, 2024 07:32 PM Reporting Lab: [facility] [place] [facility] [address] [facility] [address] Performing Lab: [facility] [place] [facility] [address] [facility] [address] [facility] [place] [facility] LIPID PANEL FASTING CHOLESTERO L [MASS/VOLU ME] IN SERUM OR PLASMA 162 mg/dL 02/07 Specimen Type: SERUM No comment entered. Ordering Provider: LATRICIA WOOD Report Released Date/Time: February 06, 2024 07:32 PM Reporting Lab: [facility] [place] [address] [address] Performing Lab: [facility] [place] [address] [address] [facility] LIPID PANEL FASTING TRIGLYCERI DE [MASS/VOLU ME] IN SERUM OR PLASMA 112 mg/dL 0 - 150 02/07 Specimen Type: SERUM No comment entered. Ordering Provider: LATRICIA WOOD Report Released Date/Time: February 06, 2024 07:32 PM Reporting Lab: [facility] [place] [address] [address] Performing Lab: [facility] [place] [facility] [address] [facility] [address] [facility] [place] [facility] LIPID PANEL FASTING CHOLESTERO L IN LDL [MASS/VOLU ME] IN SERUM OR PLASMA BY CALCULATIO N 98 mg/dL 0 - 129 02/07 Specimen Type: SERUM No comment entered. Ordering Provider: LATRICIA WOOD Report Released Date/Time: February 06, 2024 07:32 PM Reporting Lab: [facility] [place] [address] [address] Performing Lab: [facility] [place] [address] [place] [address] [facility] LIPID PANEL FASTING CHOLESTERO L.TOTAL/CH OLESTEROL IN HDL [MASS RATIO] IN SERUM OR PLASMA 3.9 02/07 Specimen Type: SERUM No comment entered. Ordering Provider: LATRICIA WOOD Report Released Date/Time: February 06, 2024 07:32 PM Reporting Lab: [address] [address] Performing Lab: [facility] [address] [address] [facility] LIPID PANEL FASTING CHOLESTERO L IN HDL [MASS/VOLU ME] IN SERUM OR PLASMA 42 mg/dL 40 - 60 02/07 Specimen Type: SERUM No comment entered. Ordering Provider: LATRICIA WOOD Report Released Date/Time: February 06, 2024 07:32 PM Reporting Lab: [address] [address] Performing Lab: [facility] [address] [facility] HEMOGLOB IN A1C PANEL HEMOGLOBIN A1C/HEMOGL OBIN.TOTAL [...] February 06, 2024 07:32 PM Reporting Lab: [address] [address] Performing Lab: [address] [address] [facility] MICROALB UMIN CREATINI NE RATIO PANEL MICROALBUM IN/CREATIN INE [MASS RATIO] IN URINE 12.9 mg/g 0 - 29.9 02/07 Specimen Type: URINE No comment entered. Ordering Provider: LATRICIA WOOD Report Released Date/Time: February 06, 2024 07:32 PM Reporting Lab: [facility] [place] [facility] [address] [facility] [address] Performing Lab: [facility] [place] [facility] [address] [facility] [address] [facility] MICROALB UMIN CREATINI NE RATIO PANEL MICROALBUM IN [MASS/VOLU ME] IN URINE 1.4 mg/dL 02/07 Specimen Type: URINE No comment entered. Ordering Provider: LATRICIA WODO Report Released Date/Time: February 06, 2024 07:32 PM Reporting [facility] [place] [address] [address] Performing Lab: [facility] [place] [address] [address] [facility] MICROALB UMIN CREATINI NE RATIO PANEL CREATININE [MASS/VOLU ME] IN URINE 108.66 mg/dL 02/07 Specimen Type: URINE No comment entered. Ordering Provider: LATRICIA WOOD Report Released Date/Time: February 06, 2024 07:32 PM Reporting [facility] [place] [address] [address] Performing Lab: [facility] [place] [address] [address] [facility] [place] [facility] URINALYS IS CLEAN CATCH COLOR OF URINE Light-Ye llow 02/07 Specimen Type: URINE Comment: If Glucose = >500 and Ketones are positive, please alert the Physician. Ordering Provider: LATRICIA WOOD Report Released Date/Time: February 06, 2024 07:32 PM Reporting Lab[facility] [place] [address] [address] Performing Lab: [facility] [place] [facility] [address] [facility] [address] [facility] [place] URINALYS IS CLEAN CATCH APPEARANCE OF URINE Clear 02/07 Specimen Type: URINE Comment: If Glucose = >500 and Ketones are positive, please alert the Physician. Ordering Provider: LATRICIA WOOD Report Released Date/Time: February 06, 2024 07:32 PM Reporting Lab: [facility] [place] [facility] [address] [facility] [address] Performing Lab: [facility] [place] [facility] [address] [facility] [address] [facility] [place] URINALYS IS CLEAN CATCH GLUCOSE [MASS/VOLU ME] IN URINE NEGATIVE mg/dL 02/07 Specimen Type: URINE Comment: If Glucose = >500 and Ketones are positive, please alert the Physician. Ordering Provider: LATRICIA WOOD Report Released Date/Time: February 06, 2024 07:32 PM Reporting Lab: [facility] [place] [facility] [address] [facility] [address] Performing Lab: [facility] [place] [facility] [address] [facility] [address] [facility] [place] URINALYS IS CLEAN CATCH KETONES [MASS/VOLU ME] IN URINE BY TEST STRIP NEGATIVE mg/dL 02/07 Specimen Type: URINE Comment: If Glucose = >500 and Ketones are positive, please alert the Physician. Ordering Provider: LATRICIA WOOD Report Released Date/Time: February 06, 2024 07:32 PM Reporting Lab: [facility] [place] [facility] [address] [facility] [address] Performing Lab: [facility] [place] [facility] [address] [facility] [address] [facility] [place] URINALYS IS CLEAN CATCH ERYTHROCYT ES [PRESENCE] IN URINE SEDIMENT BY LIGHT MICROSCOPY NEGATIVE mg/dL 02/07 Specimen Type: URINE Comment: If Glucose = >500 and Ketones are positive, please alert the Physician. Ordering Provider: LATRICIA WOOD Report Released Date/Time: February 06, 2024 07:32 PM Reporting Lab: [facility] [place] [facility] [address] [facility] [address] Performing Lab: [facility] [place] [facility] [address] [facility] [address] [facility] [place] URINALYS IS CLEAN CATCH PROTEIN [MASS/VOLU ME] IN URINE BY TEST STRIP NEGATIVE mg/dL 02/07 Specimen Type: URINE Comment: If Glucose = >500 and Ketones are positive, please alert the Physician. Ordering Provider: LATRICIA WOOD Report Released Date/Time: February 06, 2024 07:32 PM Reporting Lab: [facility] [place] [facility] [address] [facility] [address] Performing Lab: [facility] [place] [facility] [address] [facility] [address] [facility] [place] URINALYS IS CLEAN CATCH NITRITE [PRESENCE] IN URINE NEGATIVE mg/dL 02/07 Specimen Type: URINE Comment: If Glucose = >500 and Ketones are positive, please alert the Physician. Ordering Provider: LATRICIA WOOD Report Released Date/Time: February 06, 2024 07:32 PM Reporting Lab: [facility] [place] [facility] [address] [facility] [address] Performing Lab: [facility] [place] [facility] [address] [facility] [address] [facility] [place] URINALYS IS CLEAN CATCH BILIRUBIN. TOTAL [PRESENCE] IN URINE NEGATIVE mg/dL 02/07 Specimen Type: URINE Comment: If Glucose = >500 and Ketones are positive, please alert the Physician. Ordering Provider: LATRICIA WOOD Report Released Date/Time: February 06, 2024 07:32 PM Reporting Lab: [facility] [place] [facility] [address] [facility] [address] Performing Lab: [facility] [place] [facility] [address] [facility] [address] [facility] [place] URINALYS IS CLEAN CATCH SPECIFIC GRAVITY OF URINE BY REFRACTOME TRY 1.018 1.016 - 1.022 02/07 Specimen Type: URINE Comment: If Glucose = >500 and Ketones are positive, please alert the Physician. Ordering Provider: LATRICIA WOOD Report Released Date/Time: February 06, 2024 07:32 PM Reporting Lab: [facility] [address] [address] Performing Lab: [facility] [address] [facility] URINALYS IS CLEAN CATCH PH OF URINE BY TEST STRIP 6.0 5.0 - 9.0 02/07 Specimen Type: URINE Comment: If Glucose = >500 and Ketones are positive, please alert the Physician. Ordering Provider: LATRICIA WOOD Report Released Date/Time: February 06, 2024 07:32 PM Reporting Lab: [facility] [address] Performing Lab: [facility] [address] [facility] [address] [facility] [place] [facility] URINALYS IS CLEAN CATCH UROBILINOG EN [MASS/VOLU ME] IN URINE BY TEST STRIP <2.0mg/d L <2.0 - 2.0 02/07 Specimen Type: URINE Comment: If Glucose = >500 and Ketones are positive, please alert the Physician. Ordering Provider: LATRICIA WOOD Report Released Date/Time: February 06, 2024 07:32 PM Reporting Lab: [facility] [place] [facility] [address] [facility] [address] Performing Lab: [facility] [place] [facility] [address] [facility] [address] [facility] [place] [facility] URINALYS IS CLEAN CATCH LEUKOCYTE ESTERASE [PRESENCE] IN URINE BY TEST STRIP NEGATIVE 02/07 Specimen Type: URINE Comment: If Glucose = >500 and Ketones are positive, please alert the Physician. Ordering Provider: LATRICIA WOOD Report Released Date/Time: February 06, 2024 07:32 PM Reporting Lab: [facility] [place] [facility] [address] [facility] [address] Performing Lab: [facility] [place] [facility] [address] [facility] [address] [facility] [place] [facility] Encounters Combined list of: 1) Encounters from Department of Veterans Affairs facilities going backup to the last 18 months, not all VA inpatient encounters are included; 2) Encounters from the Department of Defense facilities going backup to 280 months. 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, low risk, bilater al HAILEY LOWRYE 12/22 [facility] [place] [facility] COMPRE OPH EXAM EST PT 1/> [id number] Diagnos is: ICD-10- CM E11.9 Type 2 diabete s mellitu s without complic ations HAILEY LOWRY NEETU 12/22 [facility] [place] [facility] [place] [facility] FIT SPECTACLES MONOFOCAL [id number] Diagnos is: ICD-10- CM Z46.0 Encount er for fit/adj st of spectac les and contact lenses HAILEY LOWRYE 12/22 [facility] [place] [facility] OFFICE O/P EST LOW 20 MIN [id number] Diagnos is: ICD-10- CM E11.9 Type 2 diabete s mellitu s without complic ations MARINA WOOD RD 02/13 [facility] [place] Outpatient Encounter [id number] 02/17 [facility] [place] [place] Outpatient Encounter [id number] 02/22 [facility] [place] [facility] [place] [facility] Outpatient Encounter [id number] 04/23 [facility] [place] [facility] [place] [facility] Outpatient Encounter [id number] 04/23 [facility] [facility] Social History Combined list of available smoking, tobacco, and other social history from 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 Social History Type Response Date Comment Source Tobacco smoking status [facility]-TOBACCO QUIT 15 YRS OR MORE 02/14/2024 [facility] [facility] History of tobacco use [facility]-TOBACCO FORMER USER 02/14/2024 [facility] [facility] History of tobacco use [facility]-TOBACCO FORMER USER 02/12/2023 [facility] [place] [facility]/13[facility]2022 [facility] [place] [facility] History of tobacco use [facility]-TOBACCO FORMER USER 02/11/2021 [facility] [facility] of [facility] 12/22/2019 [facility] [facility] History of tobacco use [facility]-TOBACCO NEVER USED 02/17/2018 [facility] [place] [facility] History of tobacco use LIFETIME NON-TOBACCO USER 02/17/2018 [facility] [place] [facility] History of tobacco use QUIT TOBACCO USE > 7 YEARS AGO 03/02/2016 PT STATES HE STOPEED 20 YRS AGO. [facility] [place] [facility] History of tobacco use QUIT TOBACCO USE > 7 YEARS AGO 04/18/2010 [facility] [place] [facility] Plan of Care List of future care activities from Department of 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 Additional future care activities may be listed in the Assessment and Plan section. Date/Time Care Activity Care Activity Detail Facili ty 11/01/2025 AMBULATORY - MEDICINE AMBULATORY - MEDICI [facility] Advance Directives List of completed, amended, or rescinded Advance Directives on record at Department of [facility] facilities. An actual copy of the Directive is not included. Date Advance Directive Provider Source 02/18/2024 ADVANCE DIRECTIVE ALECIA WOOD [facility]
--- NOTE | 2025-05-01 12:57 | A.OFFVIS_ITS ---
Vital Signs 05/01/25 12:59 Height 5 ft 9 in Intake Visit Reasons: PO - left hip vishal revision 04/17/25 NE Intake Note: Festus is a 74 year old male who presents today with his for a post op appointment s/p Revision left hip arthropasty, femoral component only 04/17/25 NE. Patient reports reports he is doing well. He mentions that he hasn't taken his oxycodone and has been using Tylenol for his discomfort if needed. Allergies terbinafine (From LAMISIL) Adverse Reaction (Intermediate, Verified 05/01/25 12:59) GI UPSET Lamisil Allergy (Unknown, Uncoded 04/13/25 03:06) Stomach Upset HPI HPI PO - left hip vishal revision 04/17/25 NE: Details: Mr. Munoz is a 74-year-old male who presents to the office today status post left hip vishal arthroplasty revision performed on 04/17/[address] Barreto. Patient is using a Rollator walker to assist with ambulation. He has been working with [facility] on physical therapy. Overall he is not experiencing much pain. He is doing very well. [facility] Medical History Lung nodule SOB (shortness of breath) on exertion Impacted cerumen of both ears Aortic dilatation Cholelithiasis Obstructive sleep apnea Erectile dysfunction Hypercholesterolemia Peripheral neuropathy Asthma Type 2 diabetes mellitus with hyperglycemia Chronic low back pain Hypertension Surgical History S/P ORIF (open reduction internal fixation) fracture History of left knee replacement History of total right knee replacement History of right hip replacement History of pericardiectomy H/O lumbar discectomy Family History Mother Mental health disorder Social History Household Members: Spouse Housing: House Do you presently have visiting nurse or other home services: Yes Alcohol intake: current Alcohol intake frequency: holidays/special occasions only Comment: COUNTS CORRECT Patient Tobacco Use Status: Former Tobacco user Tobacco use type: Cigarette Years Smoked: stopped 1994 e-Cigarette/Vaping Use: Never Used Second Hand Smoke Exposure: Yes Advance Directives Date on File: 12/26/21 service: Yes Current occupational status: retired Cognitive needs: No Hearing needs: Yes Vision needs: Yes Review of Systems Const All systems reviewed & are unremarkable except as noted in HPI and below Physical Exam Const General: cooperative, healthy appearing and no acute distress Resp Effort & Inspection: normal respiratory effort and able to speak in complete sentences Extrem Other: Left hip incision site is clean dry and intact. Stephanie intact. No surrounding erythema or drainage. No signs of infection. Good internal external rotation. Able to straight leg raise without difficulty. NVI. Psych Appearance: grossly normal Mental Status: mental status grossly normal Attitude: cooperative Assessment & Plan Assessment & Plan (1) Status post hemiarthroplasty of left hip: Code(s): Z96.642 - Presence of left artificial hip joint Category: Surgical Plan Mr. Munoz is a 74-year-old male who presents to the office today status post left hip vishal arthroplasty revision performed on 04/17/[address] Barreto. Patient is using a Rollator walker to assist with ambulation. He has been working with [facility] on physical therapy. Overall he is not experiencing much pain. He is doing very well. While the office today, stephanie were removed and Steri-Strips were applied. Patient may begin showering at this time. He will continue to work with physical therapy on glute core quad strengthening as well as gait training with the use of a walker. He reports that he has 8 weeks of home visiting nurse association scheduled. He will follow up in 4 weeks with repeat x-rays with Dr. Barreto, sooner if needed. X-rays of the left hip which were obtained while in the office today and were reviewed by me, Cynthia Thompson PA-C, revealed intact left hip hemiarthroplasty. Orders: Orders XR hip LT min 2V Today M25.559 - Pain in unspecified hip Coding Level of Care Code Global (83593) Diagnoses Status post hemiarthroplasty of left hip Z96.642
--- OUTSIDE RECORDS SUMMARY | 2025-05-01 13:53 | XMS_ITS | Patient Health Record ---
Author Organization [facility] [place] Address [address] [place] [address] Care Team Providers Care Concrete Vibrator Operator Name Role Phone Daniel Romano Primary Care Provider Chantel Smith Unavailable [phone] Rayshawn Avendaño Unavailable [phone] Allergies Allergen (clinical drug ingredient) Drug/Non Drug Allergy documented on EMR Reaction Allergy Type Onset Date Status Lamisil sick Drug Allergy Active Results Component Value Reference Range Notes HEMOGLOBIN A1C (GLYCOHEMOGLO BIN) Reviewed date:10/24/2024 08:55:41 [...] Problem Status W/U Status Risk Notes Problem Type 2 diabetes mellitus with diabetic polyneuropathy (E11.42) Active confirmed Vital Signs Blood pressure diastolic 65 mm Hg 03/28/2025 Height 5ft 9.5in in 03/28/2025 Blood pressure systolic 128 mm Hg 03/28/2025 Weight 270 lbs 03/28/2025 BMI 39.3 kg/m2 03/28/2025 Procedures Procedure Date Ordered Date Performed Result Body Sit e 83518-UXDCTQH NAIL, 6 OR MORE 07/19/2024 N/A 14452-XIXC SKIN LESIONS, 2 TO 4 07/19/2024 N/A 69994-GNWOYWD NAIL, 6 OR MORE 10/24/2024 N/A 51121-XTXV SKIN LESIONS, 2 TO 4 10/24/2024 N/A 47984-WMDTRSK NAIL, 6 OR MORE 03/28/2025 N/A 24938-VPJU SKIN LESIONS, 2 TO 4 03/28/2025 N/A Encounters Encounter Location Date Provider Diagnosis [address] [address] 07/19/2024 Chantel Infante Type 2 diabetes mellitus with diabetic polyneuropathy E11.42 and Tinea unguium B35.[address] [address] 10/24/2024 Rayshawn Avendaño Type 2 diabetes mellitus with diabetic polyneuropathy E11.42 and Tinea unguium B35.[address] [address] 03/28/2025 Chantel Starraker Type 2 diabetes mellitus with diabetic polyneuropathy E11.42 and Tinea unguium B35.[address] [address] 02/09/2025 Chantel Infante Assessments Encounter Date Diagnosis [...] B35.1) 10/24/2024 Tinea unguium (ICD-10 - B35.1) Plan Of Treatment Pending Test Test Name Order Date *Liver Function Test (LFT) 12/16/2016 83217-TQPLKWO NAIL, 6 OR MORE 03/17/2017 02180-WSZVQNX NAIL, 6 OR MORE 06/16/2017 14655-CVHXOHD NAIL, 6 OR MORE 09/15/2017 53839-HWRWORK NAIL, 6 OR MORE 12/15/2017 71290-BKQKCAH NAIL, 6 OR MORE 03/21/2018 63103-RCVCFGI NAIL, 6 OR MORE 06/27/2018 98084-CTREQVW NAIL, 6 OR MORE 07/19/2024 32994-XVECKAI NAIL, 6 OR MORE 10/24/2024 58098-BZWHIDB NAIL, 6 OR MORE 03/28/2025 63719-VLFGHLC NAIL, 6 OR MORE 12/16/2016 07566-TRZL SKIN LESIONS, OVER 4 09/28/19 19 76635-WTOQ SKIN LESIONS, OVER 4 06/27/20 18 58084-KKGW SKIN LESIONS, OVER 4 03/21/20 18 72477-OGUM SKIN LESIONS, OVER 4 03/29/20 19 03725-FWHV SKIN LESIONS, OVER 4 07/03/20 19 84252-GVHA SKIN LESIONS, OVER 4 10/09/19 20 72372-OVKR SKIN LESIONS, OVER 4 01/10/20 20 90482-KHXZ SKIN LESIONS, OVER 4 04/10/20 20 72371-MOIM SKIN LESIONS, OVER 4 07/10/20 20 49022-LUTJ SKIN LESIONS, OVER 4 10/02/19 21 40952-GREV SKIN LESIONS, OVER 4 01/02/20 21 14750-YQBO SKIN LESIONS, OVER 4 04/03/20 21 72181-XMHD SKIN LESIONS, OVER 4 07/16/20 04439-MXFT SKIN LESIONS, OVER 4 11/13/19 22 27793-CVTD SKIN LESIONS, 2 TO 4 12/16/19 18 87153-AIJO SKIN LESIONS, 2 TO 4 01/05/20 19 48992-RKXH SKIN LESIONS, 2 TO 4 07/19/20 24 52197-OGDI SKIN LESIONS, 2 TO 4 03/28/20 25 30911-VLER SKIN LESIONS, 2 TO 4 10/24/19 25 68056-BBZVPIGL OF HEMATOMA/FLUID 023 Next Appt Details Provider Name:Chantel Askew allison, 06/28/2025 03:45:00 PM, [address] [facility], [place], [address], Insurance Providers Payer Name Payer Address Payer Phone Subscriber Number Group Number Insured Name Patient Relationship to Insured Coverage Start Date Coverage End Date Medicare National [employer] [address] [place] [address] [id number] Festus Munoz Self - patient is the insured [facility] [address] [place] [address] [id number] Festus Munoz Self - patient is the insured Medical [...]
--- OUTSIDE RECORDS SUMMARY | 2025-05-01 13:53 | XMS_ITS | Patient Health Record ---
Author Organization [facility] Address [address] [place] [address] Care Team Providers Care Flight Attendant Name Role Phone Daniel Romano MD Primary Care Provider Mac Rose [phone] Allergies Allergen (clinical drug ingredient) Drug/Non Drug [...] Problem Status W/U Status Risk Notes Problem [id number] Encounter for screening for malignant neoplasm of colon (Z12.11) Active confirmed Problem 224045883 Aspirin long-term use (Z79.82) Active confirmed Problem 01312895 Hypertension, unspecified type (I10) Active confirmed Plan Of Treatment Future Test Test Name Order Date COLONOSCOPY 12/30/2017 Insurance Providers Payer Name Payer Address Payer Phone Subscriber Number Group Number Insured Name Patient Relationship to Insured Coverage Start Date Coverage End Date MEDICARE OF [place] [address] [place] [address] [id number] VEE SAL Self - patient is the insured [facility] [address] [place] [phone] [id number] VEE SAL Self - patient is the insured Medical (General) History Medical History History ICD Code Denies NE,CVA,renal disease COPD NIDDM Neuropathy in feet Sleep apnea--uses CPAP Negative colonoscopies in 31 12 and 2006 other than diverticulosis and internal hemorrhoids Surgical History Surgery Date(Month/Year) Left knee replacement 2015 Right knee replacement 2014 Right hip replacement 2013 Metal plates due to femur surgery 2016 Pericarditis with pericardectomy in the Rectal fistula Lumbar disc
== END 2025-05-01 13:54 | disposition home or self-care (01) ==
LOC: HO.HOS 12:42
PROVIDERS: PCP Internal Medicine; Visit Provider Physician Assistant
DX: Z96.642 Presence of left artificial hip joint (principal)
CPT/HCPCS: 99024

== ENCOUNTER → 2025-05-01 12:44 | Outpatient (BNV) | payer MEDICARE, SELFPAY | PROVIDERS: Visit Provider Radiology Diagnostic Radiology | DX: Z96.642 Presence of left artificial hip joint (principal) | CPT/HCPCS: 73502 ==

== ENCOUNTER 2025-05-03 15:01 | Outpatient (AMB) | payer MEDICARE, SELFPAY ==
--- OUTSIDE RECORDS SUMMARY | 2025-05-01 08:51 | XMS_ITS | Continuity of Care Document ---
Author Name [facility] Organization [facility] Care Team Providers Care Instructional Coach Name Role Phone [facility] Unavailable Unavailable Problems Combined list of problems from 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 It does not include entries that were removed or entered in error. Problem Status Onset Date Problem Type Date of Resolution Comments Source Hypercholesterolemia Active 019 Condition Feb 14, 2019 Entered By: ALECIA WOOD Comment: treated with medication [facility] Impaired fasting glycaemia (SNOMED [place] [id number]) Active 014 Condition [facility] Tremor Active 010 Condition [facility] Disc Disease Active 009 Condition [facility] Diabetes Mellitus Type 2 ([facility] [id number]) Active Condition [facility] [...] Ordering Provider Order Date Order Qty Source METFORMIN HCL TAB,ORAL TAKE BY MOUTH TWICE DAILY ORAL ACTIVE Rocky LOWRY 2018 [facility] SIMVASTATIN 20MG TAB TAKE ONE-HALF TABLET BY MOUTH AT BEDTIME ORAL ACTIVE JOSH [facility]OD [facility] Immunizations Combined list of available immunizations from the 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 Immunization Series Date Given Administered By Site Reaction Lot Number CVX Code Drug Applications Sales Consultant Status Comments Source INFLUENZA, UNSPECIFIED FORMULATION 2021 88 complet ed HISTORICA L INFORMATI ON - [facility] PATIENT'S RECALL, [facility] COVID-19 (PFIZER), MRNA, LNP-S, PF, 30 MCG/0.3 ML DOSE 3 2020 208 complet ed HISTORICA L INFORMATI ON - FROM PATIENT'S WRITTEN RECORD, [facility] COVID-19 (PFIZER), MRNA, LNP-S, PF, 30 MCG/0.3 ML DOSE 2 2020 208 complet ed HISTORICA L INFORMATI ON - FROM PATIENT'S WRITTEN RECORD, Lot#: [id number] [facility]-19 (PFIZER), MRNA, LNP-S, PF, 30 MCG/0.3 ML DOSE 1 2020 208 complet ed HISTORICA L INFORMATI ON - FROM PATIENT'S WRITTEN RECORD, Lot#: [id number] [facility] INFLUENZA, UNSPECIFIED FORMULATION 2019 88 [...] February 06, 2024 07:32 PM Reporting Lab: [facility] [place] [facility] [address] [address] Performing Lab: [facility] [address] [address] [facility] LIVER FUNCTION ALBUMIN [MASS/VOLU ME] IN SERUM OR PLASMA 3.7 g/dL 3.5 - 5.0 02/07 Specimen Type: SERUM No comment entered. Ordering Provider: LATRICIA WOOD Report Released Date/Time: February 06, 2024 07:32 PM Reporting Lab: [facility] [place] [facility] [address] [address] Performing Lab: [facility] [place] [facility] [address] [address] [facility] LIVER FUNCTION ALKALINE PHOSPHATAS E [ENZYMATIC ACTIVITY/V OLUME] IN SERUM OR PLASMA 41 U/L 40 - 150 02/07 Specimen Type: SERUM No comment entered. Ordering Provider: LATRICIA WOOD Report Released Date/Time: February 06, 2024 07:32 PM Reporting Lab: [facility] [place] [facility] [address] [address] Performing Lab: [facility] [place] [facility] [address] [address] [facility] [facility] LIVER FUNCTION ASPARTATE AMINOTRANS FERASE [ENZYMATIC ACTIVITY/V OLUME] IN SERUM OR PLASMA 18 U/L 5 - 34 02/07 Specimen Type: SERUM No comment entered. Ordering Provider: LATRICIA WOOD Report Released Date/Time: February 06, 2024 07:32 PM Reporting Lab: [facility] [place] [facility] [address] [address] Performing Lab: [facility] [place] [facility] [address] [address] [facility] LIVER FUNCTION ALANINE AMINOTRANS FERASE [ENZYMATIC ACTIVITY/V OLUME] IN SERUM OR PLASMA 21 U/L 02/07 Specimen Type: SERUM No comment entered. Ordering Provider: LATRICIA WOOD Report Released Date/Time: February 06, 2024 07:32 PM Reporting Lab: [facility] [place] [facility] [address] [address] Performing Lab: [facility] [place] [facility] [address] [address] [facility] LIVER FUNCTION BILIRUBIN. TOTAL [MASS/VOLU ME] IN SERUM OR PLASMA 0.8 mg/dL 0.2 - 1.2 02/07 Specimen Type: SERUM No comment entered. Ordering Provider: LATRICIA WOOD Report Released Date/Time: February 06, 2024 07:32 PM Reporting Lab: [facility] [address] [address] Performing Lab: [facility] [address] [address] [facility] BASIC METABOLI C PANEL (fasting ) UREA NITROGEN [MASS/VOLU ME] IN SERUM OR PLASMA 14 mg/dL 7 - 25 02/07 Specimen Type: SERUM No comment entered. Ordering Provider: LATRICIA WOOD Report Released Date/Time: February 06, 2024 07:32 PM Reporting Lab: [facility] [address] [address] Performing Lab: [facility] [address] [facility]ITALUSE [facility] BASIC METABOLI C PANEL (fasting ) GLUCOSE [MASS/VOLU ME] IN SERUM OR PLASMA 126 mg/dL 65 - 100 02/07 H Specimen Type: SERUM No comment entered. Ordering Provider: LATRICIA WOOD Report Released Date/Time: February 06, 2024 07:32 PM Reporting Lab: [facility]ERYTR[facility] [address] [address] Performing Lab: [facility] [address] [facility]N [facility]ITALUSE [facility] BASIC METABOLI C PANEL (fasting ) SODIUM [MOLES/VOL UME] IN SERUM OR PLASMA 140 mmol/L 135 - 145 02/07 Specimen Type: SERUM No comment entered. Ordering Provider: LATRICIA WOOD Report Released Date/Time: February 06, 2024 07:32 PM Reporting Lab: [facility] [address] Performing Lab: [facility]N [facility] [address] [facility] MONTGOMERYTRN [facility] BASIC METABOLI C PANEL (fasting ) POTASSIUM [MOLES/VOL UME] IN SERUM OR PLASMA 4.9 mmol/L 3.5 - 5.0 02/07 Specimen Type: SERUM No comment entered. Ordering Provider: LATRICIA WOOD Report Released Date/Time: February 06, 2024 07:32 PM Reporting Lab: [facility]ERYTR[facility] [place] [address] [address] Performing Lab: [facility]N [facility] [address] [address] [facility]OSPITALRDECATUR MOR[facility]N [facility] BASIC METABOLI C PANEL (fasting ) CHLORIDE [MOLES/VOL UME] IN SERUM OR PLASMA 105 mmol/L 100 - 110 02/07 Specimen Type: SERUM No comment entered. Ordering Provider: LATRICIA WOOD Report Released Date/Time: February 06, 2024 07:32 PM Reporting Lab: [facility]ITALRN[facility] MONTGOMERYTRN MASSUSE[address] [address] Performing Lab: [facility]ITALRL W[facility]N [facility]ITAL[facility] [address] [facility]ITALRNOL[facility] MONTGOMERYTRN [facility]USE [facility] BASIC METABOLI C PANEL (fasting ) CARBON DIOXIDE, TOTAL [MOLES/VOL UME] IN SERUM OR PLASMA 25 meq/L 20 - 30 02/07 Specimen Type: SERUM No comment entered. Ordering Provider: LATRICIA WOOD Report Released Date/Time: February 06, 2024 07:32 PM Reporting Lab: [facility]ITALRL [facility] [place] [address] [address] Performing Lab: [facility]ITALRL W[facility]N [facility]ITALUSE[address] [address] [facility]ITALRNOL[facility] MONTGOMERYTRN [facility] BASIC METABOLI C PANEL (fasting ) CREATININE [MASS/VOLU ME] IN SERUM OR PLASMA 1.10 mg/dL 0.50 - 1.40 02/07 Specimen Type: SERUM No comment entered. Ordering Provider: LATRICIA WOOD Report Released Date/Time: February 06, 2024 07:32 PM Reporting Lab: [facility]ITAL[facility] [place] [facility] [address] [address] Performing Lab: [facility] [place] [facility] [address] [address] [facility] BASIC METABOLI C PANEL (fasting ) GLOMERULAR FILTRATION RATE/1.73 SQ M.PREDICTE D [VOLUME RATE/AREA] IN SERUM, PLASMA OR BLOOD BY CREATININE -BASED FORMULA (CKD-EPI 2020) 70 mL/min 60 02/07 Specimen Type: SERUM No comment entered. Ordering Provider: LATRICIA WOOD Report Released Date/Time: February 06, 2024 07:32 PM Reporting Lab: [facility] [place] [facility] [address] [address] Performing Lab: [facility] [place] [facility] [address] [address] [facility] [place] [facility] CBC AND DIFF (AUTO) LEUKOCYTES [#/VOLUME] IN BLOOD BY AUTOMATED COUNT 6.68 10*3/uL 4.50 - 11.00 02/07 Specimen Type: BLOOD No comment entered. Ordering Provider: LATRICIA WOOD Report Released Date/Time: February 06, 2024 07:32 PM Reporting Lab: [facility] [place] [facility] [address] [address] Performing Lab: [facility] [place] [facility] [address] [address] [facility] [place] [facility] CBC AND DIFF (AUTO) ERYTHROCYT ES [#/VOLUME] IN BLOOD BY AUTOMATED COUNT 4.23 10*6/uL 4.23 - 5.66 02/07 Specimen Type: BLOOD No comment entered. Ordering Provider: LATRICIA WOOD Report Released Date/Time: February 06, 2024 07:32 PM Reporting Lab: [facility] [place] [facility] [address] [address] Performing Lab: [facility] [place] [facility] [address] [address] [facility] [place] [facility] CBC AND DIFF (AUTO) HEMOGLOBIN [MASS/VOLU ME] IN BLOOD 13.7 g/dL 12.8 - 17 02/07 Specimen Type: BLOOD No comment entered. Ordering Provider: LATRICIA WOOD Report Released Date/Time: February 06, 2024 07:32 PM Reporting Lab: [facility] [place] [facility] [address] [address] Performing Lab: [facility] [place] [facility] [address] [address] [facility] [place] [facility] CBC AND DIFF (AUTO) HEMATOCRIT [VOLUME FRACTION] OF BLOOD BY AUTOMATED COUNT 40.4 39.2 - 50.4 02/07 Specimen Type: BLOOD No comment entered. Ordering Provider: LATRICIA WOOD Report Released Date/Time: February 06, 2024 07:32 PM Reporting Lab: [facility] [place] [facility] [address] [address] Performing Lab: [facility] [place] [facility] [address] [address] [facility] [place] [facility] CBC AND DIFF (AUTO) MCV [ENTITIC VOLUME] BY AUTOMATED COUNT 95.5 fL 82 - 99 02/07 Specimen Type: BLOOD No comment entered. Ordering Provider: LATRICIA WOOD Report Released Date/Time: February 06, 2024 07:32 PM Reporting Lab: [facility] [place] [facility] [address] [address] Performing Lab: [facility] [place] [facility] [address] [address] [facility] [place] [facility] CBC AND DIFF (AUTO) MCHC [MASS/VOLU ME] BY AUTOMATED COUNT 33.9 g/dL 30.8 - 35.1 02/07 Specimen Type: BLOOD No comment entered. Ordering Provider: LATRICIA WOOD Report Released Date/Time: February 06, 2024 07:32 PM Reporting Lab: [facility] [place] [facility] [address] [address] Performing Lab: [facility] [place] [facility] [address] [address] [facility] [place] [facility] CBC AND DIFF (AUTO) PLATELETS [#/VOLUME] IN BLOOD BY AUTOMATED COUNT 196 10*3/uL 140 - 360 02/07 Specimen Type: BLOOD No comment entered. Ordering Provider: LATRICIA WOOD Report Released Date/Time: February 06, 2024 07:32 PM Reporting Lab: [facility] [place] [facility] [address] [address] Performing Lab: [facility] [place] [facility] [address] [address] [facility]ERYTRN [place] [facility] CBC AND DIFF (AUTO) ERYTHROCYT E DISTRIBUTI ON WIDTH [RATIO] BY AUTOMATED COUNT 12.6 12.0 - 16.0 02/07 Specimen Type: BLOOD No comment entered. Ordering Provider: LATRICIA WOOD Report Released Date/Time: February 06, 2024 07:32 PM Reporting Lab: [facility]ITALRN[facility]ERYTRN [place] [address] [address] Performing Lab: [facility]ITALRL [facility] [place] [facility] [address] [address] [facility]ERYTRN [facility] CBC AND DIFF (AUTO) MONOCYTES [#/VOLUME] IN BLOOD BY AUTOMATED COUNT 0.73 10*3/uL 0.30 - 1.10 02/07 Specimen Type: BLOOD No comment entered. Ordering Provider: LATRICIA WOOD Report Released Date/Time: February 06, 2024 07:32 PM Reporting Lab: [facility]ITAL[facility]TRN [place] [facility] [address] [address] Performing Lab: [facility]ITAL[facility] [place] [facility] [address] [address] [facility]ITALRN[facility]TRN [facility] CBC AND DIFF (AUTO) MCH [ENTITIC MASS] BY AUTOMATED COUNT 32.4 pg 26.2 - 32.6 02/07 Specimen Type: BLOOD No comment entered. Ordering Provider: LATRICIA WOOD Report Released Date/Time: February 06, 2024 07:32 PM Reporting Lab: [facility] [place] [address] [address] Performing Lab: [facility] [place] [facility] [address] [address] [facility] CBC AND DIFF (AUTO) NEUTROPHIL S/100 LEUKOCYTES IN BLOOD BY AUTOMATED COUNT 68.4 43.7 - 75.8 02/07 Specimen Type: BLOOD No comment entered. Ordering Provider: LATRICIA WOOD Report Released Date/Time: February 06, 2024 07:32 PM Reporting Lab: [facility] [address] [address] Performing Lab: [facility] [address] [address] [facility] CBC AND DIFF (AUTO) LYMPHOCYTE S/100 LEUKOCYTES IN BLOOD BY AUTOMATED COUNT 16.6 14.0 - 42.3 02/07 Specimen Type: BLOOD No comment entered. Ordering Provider: LATRICIA WOOD Report Released Date/Time: February 06, 2024 07:32 PM Reporting Lab: [facility] [address] [address] Performing Lab: [facility] [address] [address] [facility] CBC AND DIFF (AUTO) MONOCYTES/ 100 LEUKOCYTES IN BLOOD BY AUTOMATED COUNT 10.9 5.1 - 13.7 02/07 Specimen Type: BLOOD No comment entered. Ordering Provider: LATRICIA WOOD Report Released Date/Time: February 06, 2024 07:32 PM Reporting Lab: [facility] [address] [address] Performing Lab: [facility] [address] [address] [facility] CBC AND DIFF (AUTO) EOSINOPHIL S/100 LEUKOCYTES IN BLOOD BY AUTOMATED COUNT 3.1 0.4 - 6.8 02/07 Specimen Type: BLOOD No comment entered. Ordering Provider: LATRICIA WOOD Report Released Date/Time: February 06, 2024 07:32 PM Reporting Lab: [facility] [place] [facility] [address] [address] Performing Lab: [facility] [place] [facility] [address] [address] [facility] [place] [facility] CBC AND DIFF (AUTO) BASOPHILS/ 100 LEUKOCYTES IN BLOOD BY AUTOMATED COUNT 0.7 0.1 - 2.0 02/07 Specimen Type: BLOOD No comment entered. Ordering Provider: LATRICIA WOOD Report Released Date/Time: February 06, 2024 07:32 PM Reporting Lab: [facility] [place] [facility] [address] [address] Performing Lab: [facility] [place] [facility] [address] [address] [facility] [place] [facility] CBC AND DIFF (AUTO) NEUTROPHIL S [#/VOLUME] IN BLOOD BY AUTOMATED COUNT 4.56 10*3/uL 2.20 - 7.60 02/07 Specimen Type: BLOOD No comment entered. Ordering Provider: ALTRICIA WOOD Report Released Date/Time: February 06, 2024 07:32 PM Reporting Lab: [facility] [place] [facility] [address] [address] Performing Lab: [facility] [place] [facility] [address] [address] [facility] [place] [facility] CBC AND DIFF (AUTO) LYMPHOCYTE S [#/VOLUME] IN BLOOD BY AUTOMATED COUNT 1.11 10*3/uL 1.00 - 3.20 02/07 Specimen Type: BLOOD No comment entered. Ordering Provider: LATRICIA WOOD Report Released Date/Time: February 06, 2024 07:32 PM Reporting Lab: [facility] [place] [facility] [address] [address] Performing Lab: [facility] [place] [facility] [address] [address] [facility] [place] [facility] CBC AND DIFF (AUTO) EOSINOPHIL S [#/VOLUME] IN BLOOD BY AUTOMATED COUNT 0.21 10*3/uL 0.03 - 0.44 02/07 Specimen Type: BLOOD No comment entered. Ordering Provider: LATRICIA WOOD Report Released Date/Time: February 06, 2024 07:32 PM Reporting Lab: [facility] [place] [facility] [address] [address] Performing Lab: [facility] [place] [facility] [address] [address] [facility] [place] [facility] CBC AND DIFF (AUTO) BASOPHILS [#/VOLUME] IN BLOOD BY AUTOMATED COUNT 0.05 10*3/uL 0.01 - 0.13 02/07 Specimen Type: BLOOD No comment entered. Ordering Provider: LATRICIA WOOD Report Released Date/Time: February 06, 2024 07:32 PM Reporting Lab: [facility] [place] [facility] [address] [address] Performing Lab: [facility] [place] [address] [address] [facility] [place] [facility] CBC AND DIFF (AUTO) IMMATURE GRANULOCYT ES/100 LEUKOCYTES IN BLOOD BY AUTOMATED COUNT 0.3 0.0 - 0.7 02/07 Specimen Type: BLOOD No comment entered. Ordering Provider: LATRICIA WOOD Report Released Date/Time: February 06, 2024 07:32 PM Reporting Lab: [facility] [place] [facility] [address] [address] Performing Lab: [facility] [place] [address] [address] [facility] [place] [facility] CBC AND DIFF (AUTO) IMMATURE GRANULOCYT ES [#/VOLUME] IN BLOOD 0.02 10*3/uL 0.00 - 0.06 02/07 Specimen Type: BLOOD No comment entered. Ordering Provider: LATRICIA WOOD Report Released Date/Time: February 06, 2024 07:32 PM Reporting Lab: [facility] [place] [facility] [address] [address] Performing Lab: [facility] [place] [address] [address] [facility] [place] [facility] TSH THYROTROPI N [UNITS/VOL UME] IN SERUM OR PLASMA 1.39 u[IU]/mL 0.35 - 5.00 02/07 Specimen Type: SERUM No comment entered. Ordering Provider: LATRICIA WOOD Report Released Date/Time: February 06, 2024 07:32 PM Reporting Lab: [facility] [place] [facility] [address] [address] Performing Lab: [facility] [place] [facility] [address] [address] [facility] [place] [facility] LIPID PANEL FASTING CHOLESTERO L [MASS/VOLU ME] IN SERUM OR PLASMA 162 mg/dL 02/07 Specimen Type: SERUM No comment entered. Ordering Provider: LATRICIA WOOD Report Released Date/Time: February 06, 2024 07:32 PM Reporting Lab: [facility] [place] [place] [address] [address] Performing Lab: [facility] [place] [place] [address] [address] [facility] [place] [facility] LIPID PANEL FASTING TRIGLYCERI DE [MASS/VOLU ME] IN SERUM OR PLASMA 112 mg/dL 0 - 150 02/07 Specimen Type: SERUM No comment entered. Ordering Provider: LATRICIA WOOD Report Released Date/Time: February 06, 2024 07:32 PM Reporting Lab: [facility] [place] [address] [address] Performing Lab: [facility] [place] [facility] [address] [address] [facility] [place] [facility] LIPID PANEL FASTING CHOLESTERO L IN LDL [MASS/VOLU ME] IN SERUM OR PLASMA BY CALCULATIO N 98 mg/dL 0 - 129 02/07 Specimen Type: SERUM No comment entered. Ordering Provider: LATRICIA WOOD Report Released Date/Time: February 06, 2024 07:32 PM Reporting Lab: [facility] [place] [address] [address] Performing Lab: [facility] [place] [address] [place] [address] [facility] LIPID PANEL FASTING CHOLESTERO L.TOTAL/CH OLESTEROL IN HDL [MASS RATIO] IN SERUM OR PLASMA 3.9 02/07 Specimen Type: SERUM No comment entered. Ordering Provider: LATRICIA WOOD Report Released Date/Time: February 06, 2024 07:32 PM Reporting Lab: [address] [address] Performing Lab: [facility] [address] [address] [facility] LIPID PANEL FASTING CHOLESTERO L IN HDL [MASS/VOLU ME] IN SERUM OR PLASMA 42 mg/dL 40 - 60 02/07 Specimen Type: SERUM No comment entered. Ordering Provider: LATRICIA WOOD Report Released Date/Time: February 06, 2024 07:32 PM Reporting Lab: [address] [address] Performing Lab: [facility] [address] [facility] HEMOGLOB IN A1C PANEL HEMOGLOBIN A1C/HEMOGL [...] February 06, 2024 07:32 PM Reporting Lab: [address] [address] Performing Lab: [address] [address] [facility] MICROALB UMIN CREATINI NE RATIO PANEL MICROALBUM IN/CREATIN INE [MASS RATIO] IN URINE 12.9 mg/g 0 - 29.9 02/07 Specimen Type: URINE No comment entered. Ordering Provider: LATRICIA WOOD Report Released Date/Time: February 06, 2024 07:32 PM Reporting Lab: [facility] [place] [facility] [address] [address] Performing Lab: [facility] [place] [facility] [address] [address] [facility] [place] [facility] MICROALB UMIN CREATINI NE RATIO PANEL MICROALBUM IN [MASS/VOLU ME] IN URINE 1.4 mg/dL 02/07 Specimen Type: URINE No comment entered. Ordering Provider: LATRICIA WOOD Report Released Date/Time: February 06, 2024 07:32 PM Reporting Lab: [facility] [place] [address] [address] Performing Lab: [place] [facility] [place] [address] [address] [facility] [place] [facility] MICROALB UMIN CREATINI NE RATIO PANEL CREATININE [MASS/VOLU ME] IN URINE 108.66 mg/dL 02/07 Specimen Type: URINE No comment entered. Ordering Provider: LATRICIA WOOD Report Released Date/Time: February 06, 2024 07:32 PM Reporting Lab: [facility] [place] [address] [address] Performing Lab: [place] [facility] [place] [address] [id number] [facility] [facility] URINALYS IS CLEAN CATCH COLOR OF URINE Light-Ye llow 02/07 Specimen Type: URINE Comment: If Glucose = >500 and Ketones are positive, please alert the Physician. Ordering Provider: LATRICIA WOOD Report Released Date/Time: February 06, 2024 07:32 PM Reporting Lab: [facility] [place] [address] [address] Performing Lab: [facility] [place] [facility] [address] [facility] [facility] [address] [facility] [place] [facility] URINALYS IS CLEAN CATCH APPEARANCE OF URINE Clear 02/07 Specimen Type: URINE Comment: If Glucose = >500 and Ketones are positive, please alert the Physician. Ordering Provider: LATRICIA WOOD Report Released Date/Time: February 06, 2024 07:32 PM Reporting Lab: [facility] [place] [facility] [address] [address] Performing Lab: [facility] [place] [facility] [address] [address] [facility] [place] [facility] URINALYS IS CLEAN CATCH GLUCOSE [MASS/VOLU ME] IN URINE NEGATIVE mg/dL 02/07 Specimen Type: URINE Comment: If Glucose = >500 and Ketones are positive, please alert the Physician. Ordering Provider: LATRICIA WOOD Report Released Date/Time: February 06, 2024 07:32 PM Reporting Lab: [facility] [place] [facility] [address] [facility] [address] Performing Lab: [facility] [place] [facility] [address] [facility] [address] [facility] [place] [facility] URINALYS IS CLEAN CATCH KETONES [MASS/VOLU ME] IN URINE BY TEST STRIP NEGATIVE mg/dL 02/07 Specimen Type: URINE Comment: If Glucose = >500 and Ketones are positive, please alert the Physician. Ordering Provider: LATRICIA WOOD Report Released Date/Time: February 06, 2024 07:32 PM Reporting Lab: [facility] [place] [facility] [address] [facility] [address] Performing Lab: [facility] [place] [facility] [address] [facility] [address] [facility] [place] [facility] URINALYS IS CLEAN CATCH ERYTHROCYT ES [PRESENCE] IN URINE SEDIMENT BY LIGHT MICROSCOPY NEGATIVE mg/dL 02/07 Specimen Type: URINE Comment: If Glucose = >500 and Ketones are positive, please alert the Physician. Ordering Provider: LATRICIA WOOD Report Released Date/Time: February 06, 2024 07:32 PM Reporting Lab: [facility] [place] [facility] [address] [facility] [facility] [address] Performing Lab: [facility] [place] [facility] [address] [facility] [address] [facility] [place] [facility] URINALYS IS CLEAN CATCH PROTEIN [MASS/VOLU ME] IN URINE BY TEST STRIP NEGATIVE mg/dL 02/07 Specimen Type: URINE Comment: If Glucose = >500 and Ketones are positive, please alert the Physician. Ordering Provider: LATRICIA WOOD Report Released Date/Time: February 06, 2024 07:32 PM Reporting Lab: [facility] [place] [facility] [address] [facility] [address] Performing Lab: [facility] [place] [facility] [address] [facility] [facility] [address] [facility] [place] [facility] URINALYS IS CLEAN CATCH NITRITE [PRESENCE] IN URINE NEGATIVE mg/dL 02/07 Specimen Type: URINE Comment: If Glucose = >500 and Ketones are positive, please alert the Physician. Ordering Provider: LTARICIA WOOD Report Released Date/Time: February 06, 2024 07:32 PM Reporting Lab: [facility] [place] [facility] [address] [facility] [address] Performing Lab: [facility] [place] [facility] [address] [facility] [facility] [address] [facility] [place] [facility] URINALYS IS CLEAN CATCH BILIRUBIN. TOTAL [PRESENCE] IN URINE NEGATIVE mg/dL 02/07 Specimen Type: URINE Comment: If Glucose = >500 and Ketones are positive, please alert the Physician. Ordering Provider: LATRICIA WOOD Report Released Date/Time: February 06, 2024 07:32 PM Reporting Lab: [facility] [place] [facility] [address] [facility] [facility] [address] Performing Lab: [facility] [place] [facility] [address] [facility] [facility] [address] [facility] [place] [facility] URINALYS IS CLEAN CATCH SPECIFIC GRAVITY OF URINE BY REFRACTOME TRY 1.018 1.016 - 1.022 02/07 Specimen Type: URINE Comment: If Glucose = >500 and Ketones are positive, please alert the Physician. Ordering Provider: LATRICIA WOOD Report Released Date/Time: February 06, 2024 07:32 PM Reporting Lab: [facility] [address] [address] Performing Lab: [facility] MON[facility]ERYTR[facility]ITALUSE[address] [address] [facility] URINALYS IS CLEAN CATCH PH OF URINE BY TEST STRIP 6.0 5.0 - 9.0 02/07 Specimen Type: URINE Comment: If Glucose = >500 and Ketones are positive, please alert the Physician. Ordering Provider: LATRICIA WOOD Report Released Date/Time: February 06, 2024 07:32 PM Reporting Lab: [facility] [address] Performing Lab: [facility] MONTGOMERYTRN [facility]ITAL[facility]ETS [facility] [address] [address] [facility]N [place] [facility] URINALYS IS CLEAN CATCH UROBILINOG EN [MASS/VOLU ME] IN URINE BY TEST STRIP <2.0mg/d L <2.0 - 2.0 02/07 Specimen Type: URINE Comment: If Glucose = >500 and Ketones are positive, please alert the Physician. Ordering Provider: LATRICIA WOOD Report Released Date/Time: February 06, 2024 07:32 PM Reporting Lab: [facility]ERYTRN [place] [facility] [address] [facility] [facility] [address] Performing Lab: [facility] MONTGOMERYTRN [place] [facility] [address] [facility] [facility] [address] [facility] MONTGOMERYTRN [place] [facility] URINALYS IS CLEAN CATCH LEUKOCYTE ESTERASE [PRESENCE] IN URINE BY TEST STRIP NEGATIVE 02/07 Specimen Type: URINE Comment: If Glucose = >500 and Ketones are positive, please alert the Physician. Ordering Provider: LATRICIA WOOD Report Released Date/Time: February 06, 2024 07:32 PM Reporting Lab: [facility] [place] [facility] [address] [facility] [address] Performing Lab: [facility] [place] [facility] [address] [facility] [facility] [address] [facility] [place] [facility] Encounters Combined list of: 1) Encounters [...] Disposition Source [facility] [place] [facility] CPTR OPHTH DX IMG POST SEGMT [id number] Diagnos is: ICD-10- CM H40.013 Open angle with borderl ine finding s, low risk, bilater al HAILEY LOWRYE 12/22 [facility] [place] [facility] [place] [facility] COMPRE OPH EXAM EST PT 1/> [id number] Diagnos is: ICD-10- CM E11.9 Type 2 diabete s mellitu s without complic ations HAILEY LOWRY NEETU 12/22 [facility] [place] [facility] [place] [facility] FIT SPECTACLES MONOFOCAL [id number] Diagnos is: ICD-10- CM Z46.0 Encount er for fit/adj st of spectac les and contact lenses HAILEY LOWRYE 12/22 [facility] [place] [facility] [place] [place] [facility] OFFICE O/P EST LOW 20 MIN [id number] Diagnos is: ICD-10- CM E11.9 Type 2 diabete s mellitu s without complic ations MARINA WOOD RD 02/13 [facility] [place] [facility] [facility] [place] [facility] Outpatient Encounter [id number] 02/17 [facility] [place] [facility] [facility] [place] [place] [facility] Outpatient Encounter [id number] 02/22 [place] [facility] [place] [facility] [place] [facility] Outpatient Encounter [id number] 04/23 [place] [facility] [place] [facility] [place] [facility] Outpatient Encounter [id number] 04/23 [place] [facility] Social History Combined list of available smoking, tobacco, and other social history from 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 Social History Type Response Date Comment Source Tobacco smoking status [facility]TO[facility]CO QUIT 15 YRS OR MORE 02/14/2024 [place] [facility] History of tobacco use NE-TOBACCO FORMER USER 02/14/2024 [place] [facility] History of tobacco use NE-TOBACCO FORMER USER 02/12/2023 [facility] [place] [facility]13[facility]2022 [facility] [place] [facility] History of tobacco use NE-TOBACCO FORMER USER 02/11/2021 [place] [facility] of [facility] 12/22/2019 [place] [facility] History of tobacco use NE-TOBACCO NEVER USED 02/17/2018 [facility] [place] [facility] History of tobacco use LIFETIME NON-TOBACCO USER 02/17/2018 [facility] [place] [facility] History of tobacco use QUIT TOBACCO USE > 7 YEARS AGO 03/02/2016 PT STATES HE STOPEED 20 YRS AGO. [facility] [place] [facility] History of tobacco use QUIT TOBACCO USE > 7 YEARS AGO 04/18/2010 [facility] [facility] Plan of Care List of future care activities from Department of 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 Additional future care activities may be listed in the Assessment and Plan section. Date/Time Care Activity Care Activity Detail Facili ty 11/01/2025 AMBULATORY - MEDICINE AM[facility]ULATORY - [facility]ICI [facility] Advance Directives List of completed, amended, or rescinded Advance Directives on record at Department of [facility] facilities. An actual copy of the Directive is not included. Date Advance Directive Provider Source 02/18/2024 ADVANCE DIRECTIVE ALECIA WOOD [facility]
--- OUTSIDE RECORDS SUMMARY | 2025-05-03 15:03 | XMS_ITS | Patient Health Record ---
Author [facility] Address [address] [place] [address] Care Team Providers Care Operations General Agent Name Role Phone Daniel Romano Primary Care Provider Chantel Smith Unavailable [phone] Rayshawn Avendaño Unavailable [phone] Allergies Allergen (clinical drug ingredient) Drug/Non Drug [...] Vaccine Route Administration Date Status Comme nts COVID-19 Pfizer BioNTech Vaccine Unknown 2022 Administered 1st 11/25/20,12/16/20 06/17/21,12/29/21 Influenza Unknown 06/02/2017 Administered Influenza Unknown 06/13/2018 Administered Influenza Unknown 2022 Administered Influenza Unknown 06/14/2023 Administered Influenza Unknown 06/13/2024 Administered Pneumococcal Unknown 05/22/2020 Administered Social History Tobacco Use: Social History Observation [...] Ordered Date Performed Result Body Sit e 67190-PQCQHGS NAIL, 6 OR MORE 07/19/2024 N/A 75614-IFXB SKIN LESIONS, 2 TO 4 07/19/2024 N/A 46651-DOWTXFD NAIL, 6 OR MORE 10/24/2024 N/A 61106-TZDD SKIN LESIONS, 2 TO 4 10/24/2024 N/A 45861-IUQVYDE NAIL, 6 OR MORE 03/28/2025 N/A 40816-WIJK SKIN LESIONS, 2 TO 4 03/28/2025 N/A Encounters Encounter Location Date Provider Diagnosis [address] [address] 07/19/2024 Chantel Infante Type 2 diabetes mellitus with diabetic polyneuropathy E11.42 and Tinea unguium B35.[address] [address] 10/24/2024 Rayshawn Avendaño Type 2 diabetes mellitus with diabetic polyneuropathy E11.42 and Tinea unguium B35.[address] [address] 03/28/2025 Chantel Starraker Type 2 diabetes mellitus with diabetic polyneuropathy E11.42 and Tinea unguium B35.[address] [address] 02/09/2025 Chantel Infante Assessments Encounter Date Diagnosis [...] Order Date *Liver Function Test (LFT) 12/16/2016 23764-UJQJTUU NAIL, 6 OR MORE 03/17/2017 02835-XWXYVTI NAIL, 6 OR MORE 06/16/2017 14272-RZBVCOP NAIL, 6 OR MORE 09/15/2017 16733-UOLHBWL NAIL, 6 OR MORE 12/15/2017 87372-EMTVQVE NAIL, 6 OR MORE 03/21/2018 75328-NJFXBNK NAIL, 6 OR MORE 06/27/2018 76223-VLCOMIU NAIL, 6 OR MORE 07/19/2024 86209-LMVBWEO NAIL, 6 OR MORE 10/24/2024 76247-RPPKTNC NAIL, 6 OR MORE 03/28/2025 08422-BXBWKXR NAIL, 6 OR MORE 12/16/2016 47247-FRGQ SKIN LESIONS, OVER 4 09/28/19 19 75397-EQZY SKIN LESIONS, OVER 4 06/27/20 18 40389-BEJD SKIN LESIONS, OVER 4 03/21/20 18 46695-KWKD SKIN LESIONS, OVER 4 03/29/20 19 09825-ZXEL SKIN LESIONS, OVER 4 07/03/20 19 37383-NVPP SKIN LESIONS, OVER 4 10/09/19 20 36788-XVSF SKIN LESIONS, OVER 4 01/10/20 20 29401-HCPN SKIN LESIONS, OVER 4 04/10/20 20 15967-CROQ SKIN LESIONS, OVER 4 07/10/20 20 58121-QTNU SKIN LESIONS, OVER 4 10/02/19 21 16763-MNLS SKIN LESIONS, OVER 4 01/02/20 21 30420-TVPU SKIN LESIONS, OVER 4 04/03/20 21 76128-TLKY SKIN LESIONS, OVER 4 07/16/20 55312-QHRW SKIN LESIONS, OVER 4 11/13/19 22 41397-QYQH SKIN LESIONS, 2 TO 4 12/16/19 18 58354-DZPW SKIN LESIONS, 2 TO 4 01/05/20 19 20702-CWND SKIN LESIONS, 2 TO 4 07/19/20 24 09619-CDKK SKIN LESIONS, 2 TO 4 03/28/20 25 02472-CKMU SKIN LESIONS, 2 TO 4 10/24/19 25 22299-IAGVKOAX OF HEMATOMA/FLUID 023 Next Appt Details Provider Name:Chantel Askew allison, 06/28/2025 03:45:00 PM, [address] [facility], [place], [address], Insurance Providers Payer Name Payer Address Payer Phone Subscriber Number Group Number Insured Name Patient Relationship to Insured Coverage Start Date Coverage End Date Medicare National Govt Svcs Inc [address] [place] [address] [id number] Festus Munoz Self - patient is the insured 2 [facility] [address] [place] [address] [id number] Festus Munoz Self - patient is the [...]
--- OUTSIDE RECORDS SUMMARY | 2025-05-03 15:04 | XMS_ITS | Patient Health Record ---
Author Organization [facility] Address [address] [place] [address] Care Team Providers Care Acute Care Clinical Nurse Specialist Name Role Phone Daniel Romano MD Primary Care Provider Mac Rose [phone] Allergies Allergen (clinical drug ingredient) Drug/Non Drug [...] Problem Status W/U Status Risk Notes Problem 074549887 Encounter for screening for malignant neoplasm of colon (Z12.11) Active confirmed Problem 169147240 Aspirin long-term use (Z79.82) Active confirmed Problem 60736361 Hypertension, unspecified type (I10) Active confirmed Plan Of Treatment Future Test Test Name Order Date COLONOSCOPY 12/30/2017 Insurance Providers Payer Name Payer Address Payer Phone Subscriber Number Group Number Insured Name Patient Relationship to Insured Coverage Start Date Coverage End Date MEDICARE OF [place] [address] [place] [address] [id number] VEE SAL Self - patient is the insured MEDICAID OF [facility] [address] [place] [address] [id number] VEE SAL Self - patient is the insured Medical (General) History Medical History History ICD Code Denies [place],CVA,renal disease COPD NIDDM Neuropathy in feet Sleep apnea--uses CPAP Negative colonoscopies in 31 12 and 2006 other than diverticulosis and internal hemorrhoids Surgical History Surgery Date(Month/Year) Left knee replacement 2015 Right knee replacement 2014 Right hip replacement 2013 Metal plates due to femur surgery 2016 Pericarditis with pericardectomy in the Rectal fistula Lumbar disc
--- NOTE | 2025-05-03 15:31 | A.OFFPC_ITS ---
Vital Signs 05/03/25 15:35 Height 5 ft 9 in Weight 268 lb 15.423 oz BMI 39.7 BP 90/54 L Blood Pressure Location Lt brachial Position Sitting Respiration 18 Pulse 83 Pulse Source Pulse Oximeter Temp 97.1 F Temp Source Temporal Artery Scan Pulse Oximetry (%) 93 Oxygen Delivery Method Room Air Intake Visit Reasons: [facility] 8/7 L hip dislocation Orbitread Operator Required: No Accompanied by: Self / Same As Patient Allergies terbinafine (From LAMISIL) Adverse Reaction (Intermediate, Verified 05/03/25 15:49) GI UPSET Lamisil Allergy (Unknown, Uncoded 05/03/25 15:49) Stomach Upset Medication List - Last Reconciled 05/03/25 by HIEU Cosby acetaminophen 650 mg (2 x 325 mg) PO Q6H PRN 30 days aspirin 325 mg PO BID 42 days cholecalciferol (vitamin D3) (Vitamin D3) 50 mcg PO DAILY [CPAP ] fluticasone propionate 50 mcg/actuation 2 sprays intranasal BID PRN furosemide 20 mg PO MOWEFR@0900 gabapentin 600 mg PO BEDTIME lactulose 20 grams PO BID PRN lisinopril 5 mg PO DAILY erxwiaxyfswn-hryjqgmj-jqskgy (Multivitamin 50 Plus tablet) 1 tab PO DAILY semaglutide (Ozempic) 2 mg subcut STRATTON simvastatin 40 mg PO BEDTIME trazodone 100 mg PO BEDTIME 90 days Tobacco use date assessed: 05/03/25 Fall risk assessment: 2 + Falls in past year Last assessed Fall Risk: 05/03/25 Dental Screening Dental Screen Date: 05/03/25 Did you have a dental visit in the last 12 months?: Yes Did you have a dental problem in the last 6 months where you did not have access to dental care?: No Was dental information given to patient?: Patient has dentist HPI [facility] 8/7 L hip dislocation HPI Details The patient is a 74-year-old male presenting with a follow-up for hip dislocation and toe laceration. The patient underwent a second left hip surgery after the first one resulted in dislocation due to a fall from the bed. A larger prosthetic ball was used to stabilize the hip joint, and the patient is currently avoiding further surgical interventions. The patient reports a right second toe laceration sustained from an electric heater during a fall, which is still leaking fluid despite home nursing care. The wound is being managed with dressings, and there are no signs of infection. The patient has a history of neuropathy and diabetes mellitus, which is managed with Ozempic, resulting in significant weight loss and improved glycemic control. The last recorded HbA1c was 5.1%. The patient also has asthma and allergic rhinitis, managed with Zyrtec, Flonase, and Arnuity. He reports no recent exacerbations of asthma symptoms. TCM TCM Information Date of Discharge 04/19/25 Discharged From [facility] Medical History Lung nodule SOB (shortness of breath) on exertion Impacted cerumen of both ears Aortic dilatation Cholelithiasis Obstructive sleep apnea Erectile dysfunction Hypercholesterolemia Peripheral neuropathy Asthma Type 2 diabetes mellitus with hyperglycemia Chronic low back pain Hypertension Surgical History S/P ORIF (open reduction internal fixation) fracture History of left knee replacement History of total right knee replacement History of right hip replacement History of pericardiectomy H/O lumbar discectomy Family History Mother Mental health disorder Social History Household Members: Spouse Housing: House Do you presently have visiting nurse or other home services: Yes Alcohol intake: current Alcohol intake frequency: holidays/special occasions only Comment: COUNTS CORRECT Patient Tobacco Use Status: Former Tobacco user Tobacco use type: Cigarette Years Smoked: stopped 1994 e-Cigarette/Vaping Use: Never Used Second Hand Smoke Exposure: Yes Advance Directives Date on File: 12/26/21 service: Yes Current occupational status: retired Cognitive needs: No Hearing needs: Yes Vision needs: Yes Questionnaire PHQ-9 Over the last 2 weeks, how often have you been bothered by any of the following problems? 1. Little interest or pleasure in doing things: not at all 2. Feeling down, depressed, or hopeless: not at all 3. Trouble falling or staying asleep, or sleeping too much: not at all 4. Feeling tired or having little energy: not at all 5. Poor appetite or overeating: not at all 6. Feeling bad about yourself - or that you are a failure or have let yourself or your family down: not at all 7. Trouble concentrating on things, such as reading the newspaper or watching television: not at all 8. Moving or speaking so slowly that other people could have noticed. Or the opposite - being so fidgety or restless that you have been moving around a lot more than usual: not at all 9. Thoughts that you would be better off or of hurting yourself in some way: not at all Total score: 0 Depression Screening Interpretation: Negative Depression Screening Done: Yes Source: Developed by Drs. Mac Echeverria, Supriya Weston, Kyle Moon and colleagues, with an educational teofilo from [employer]. Thrive Questionnaire Date Thrive assessed: 05/03/25 I am a: Patient What is your living situation today?: I have a steady place to live Within the past 12 months, did the food you bought not last and you didn't have the money to get more?: Never true Within the past 12 months, did you worry whether your food would run out before you got money to buy more?: Never true Do you have trouble paying for medicines?: No Do you have trouble getting transportation to medical appointments?: No Do you have trouble paying your heating and electricity bill?: No Do you have trouble taking care of your child, family member or friend?: No Do you have trouble with day-to-day activities such as bathing, preparing meals, shopping, managing finances, etc.?: No Are you currently unemployed and looking for a job?: No Are you interested in more education?: No Currently or been in a relationship where the following occur: No concerns reported THRIVE Score: 0 AUDIT C Alcohol Use Questionnaire (AUDIT-C) 2. How many drinks containing alcohol do you have on a typical day when you are drinking?: 1 or 2 3. How often do you have six or more drinks on one occasion?: Never Total Score: 0 NAMITA-7 AMB Questionnaire NAMITA-7 Date NAMITA - 7 assessed: 05/03/25 Feeling nervous, anxious, or on edge: 0 = Not at all Not being able to stop or control worryin = Not at all Worrying too much about different things: 0 = Not at all Trouble relaxin = Not at all Being so restless that it is hard to sit still: 0 = Not at all Becoming easily annoyed or irritable: 0 = Not at all Feeling afraid as if something awful might happen: 0 = Not at all Total NAMITA-7 score (0-4 normal; 5-9 mild; 10-14 moderate; 15-21 severe): 0 Source: Developed by Drs. Mac Echeverria, Supriya Weston, Kyle Moon and colleagues, with an educational teofilo from [employer]. Review of Systems Const Denies headache(s) Eyes Denies loss of vision ENT Denies vertigo, Denies dizziness, Denies headache(s) and Denies sore throat Card Denies chest pain, Denies leg edema and Denies lightheadedness Resp Denies cough, Denies hemoptysis and Denies wheezing GI Denies abdominal pain, Denies melena, Denies constipation, Denies diarrhea and Denies vomiting Denies dysuria, Denies urinary frequency and Denies urinary urgency Musc Reports arthralgias (left hip soreness), Denies joint swelling, Reports numbness (Bilateral feet) and Reports tingling (bilateral feet) Skin/Breast Reports wounds (small cut underneath right second toe) Neuro Denies Abnormal speech present, Denies behavioral changes, Denies vertigo, Denies dizziness, Denies headache(s), Denies loss of vision, Denies memory loss, Reports numbness (Bilateral feet) and Reports tingling (bilateral feet) Psych Denies anxiety, Denies behavioral changes, Denies depression, Denies memory loss and Denies panic attacks Balaji/Lymph Denies easy bleeding and Denies easy bruising Aller/Immun Denies wheezing Physical exam (Primary Care) Vital Signs: Last Vital Signs Temp 97.1 F 05/03/25 15:35 Pulse 83 05/03/25 15:35 Resp 18 05/03/25 15:35 BP 90/54 L 05/03/25 15:35 Pulse Ox 93 05/03/25 15:35 Oxygen Delivery Method Room Air 05/03/25 15:35 BMI result Body Mass Index 39.7 Tobacco/Smoking Status: Tobacco use Status Tobacco use date assessed 05/03/25 05/03/25 15:47 Patient Tobacco Use Status Former Tobacco user 05/03/25 15:32 Tobacco use type Cigarette 05/03/25 15:32 e-Cigarette/Vaping Use Never Used 05/03/25 15:32 PHQ-9: PHQ-9 Score PHQ-9: Total score 0 05/03/25 16:15 Depression Screening Interpretation: Negative Thrive Assessment: Date of Thrive Assessment Date Thrive assessed 05/03/25 05/03/25 15:47 Currently or been in a relationship where the following occur: No concerns reported Const General: healthy appearing, no acute distress, alert and awake Nutritional Appearance: well nourished Orientation/consciousness: oriented to person, oriented to place and oriented to time HENMT Ears: hearing grossly normal bilaterally General nose exam: Normal external nose present Eyes Conjunctivae: conjunctivae normal Sclerae: sclerae normal Pupils: Equal, round and reactive pupils present Neck Neck: Yes no lymphadenopathy and Yes no JVD Thyroid: Thyroid normal Carotids: no bruits Resp Effort & Inspection: normal respiratory effort and not tachypneic Auscultation: no crackles, no rales, no rhonchi and no wheezes Cardio Rate: regular rate Rhythm: regular rhythm Heart sounds: no murmurs and normal S1 and S2 GI Palpation (GI): Soft to palpation, nontender, no hepatomegaly and no splenomegaly Auscultation: normal bowel sounds Skin General skin exam: dry skin Wounds: wounds noted (underneath right 2nd toe small open area with granulation tissue in wound) Neuro General: oriented to person, oriented to place and oriented to time Cranial nerves: Yes Equal, round and reactive pupils present Speech: No Abnormal speech present Gait exam (Neuro): Normal gait present Motor exam (neuro): no tremor noted Extrem Right upper extremity: full ROM Left upper extremity: full ROM Right lower extremity: full ROM and foot Details: abnormal to inspection (wound underneath right 2nd toe, no s/sx of infection); no edema Left lower extremity: full ROM and hip/thigh (steri strips in place, no s/sx of infection); no edema Psych Mental Status: mental status grossly normal Speech and movement: Normal speech and movement present Affect: normal affect Attitude: cooperative Thought process: Normal thought process present Results Reviewed Results Reviewed: Laboratory Tests 04/19/25 04/19/25 04/19/25 07:23 07:26 11:21 WBC 6.3 RBC 3.32 L Hgb 10.3 L Hct 30.0 L MCV 90.4 MCH 31.0 MCHC 34.3 RDW 13.5 Plt Count 154 L Sodium 142 Potassium 4.2 Chloride 107 Carbon Dioxide 28 Anion Gap 11 L BUN 19 H Creatinine 1.06 Estim Creat Clear Calc 81.9 Estimated GFR > 60 POC Glucose 138 H Fasting Glucose 117 H Calcium 8.3 L Coding Level of Care Code TCM Mod MDM <= 14 Days Diagnoses S/P total left hip arthroplasty Z96.642 Essential hypertension I10 Hypertension type: essential hypertension Type 2 diabetes mellitus with hyperglycemia, without long-term current use of insulin E11.65 Diabetes mellitus intermediate insulin use: without truck terminal manager use Closed dislocation of left hip, subsequent encounter S73.005D Encounter type: subsequent encounter Obstructive sleep apnea G47.33 Open wound of lesser toe of right foot S91.104A Mild intermittent asthma without complication J45.20 Asthma severity: mild Asthma persistence: intermittent Asthma complication type: uncomplicated Allergic rhinitis, unspecified seasonality, unspecified trigger J30.9 Allergic rhinitis trigger: unspecified Allergic rhinitis seasonality: unspecified Time Spent (min) 39 Assessment & Plan Assessment & Plan (1) S/P total left hip arthroplasty: Code(s): Z96.642 - Presence of left artificial hip joint Category: Surgical (2) Hypertension: Code(s): I10 - Essential (primary) hypertension Category: Medical Qualifiers: Hypertension type: essential hypertension Qualified Code(s): I10 - Essential (primary) hypertension (3) Type 2 diabetes mellitus with hyperglycemia: Comment: [place] 06/2022 Code(s): E11.65 - Type 2 diabetes mellitus with hyperglycemia Category: Medical Qualifiers: Diabetes mellitus intermediate insulin use: without truck terminal manager use Qualified Code(s): E11.65 - Type 2 diabetes mellitus with hyperglycemia (4) Dislocation of hip, left, closed: Code(s): S73.005A - Unspecified dislocation of left hip, initial encounter Category: Medical Qualifiers: Encounter type: subsequent encounter Qualified Code(s): S73.005D - Unspecified dislocation of left hip, subsequent encounter (5) Obstructive sleep apnea: Comment: September 2021 uses the CPAP every night an benefits from this Code(s): G47.33 - Obstructive sleep apnea (adult) (pediatric) Category: Medical (6) Open wound of lesser toe of right foot: Code(s): S91.104A - Unspecified open wound of right lesser toe(s) without damage to nail, initial encounter Category: Medical (7) Asthma: Code(s): J45.909 - Unspecified asthma, uncomplicated Category: Medical Qualifiers: Asthma severity: mild Asthma persistence: intermittent Asthma complication type: uncomplicated Qualified Code(s): J45.20 - Mild intermittent asthma, uncomplicated (8) Allergic rhinitis: Code(s): J30.9 - Allergic rhinitis, unspecified Category: Medical Qualifiers: Allergic rhinitis trigger: unspecified Allergic rhinitis seasonality: unspecified Qualified Code(s): J30.9 - Allergic rhinitis, unspecified Plan The patient will continue to monitor the hip for any signs of complications following the recent surgery, with a follow-up appointment scheduled with Dr. Barreto in four weeks. The toe laceration will be managed with regular dressing changes by the home nurse, and the patient will avoid showering to prevent infection. Diabetes management will continue with Ozempic, and the patient will maintain regular monitoring of HbA1c levels. Asthma and allergic rhinitis will be managed with current medications, including Zyrtec, Flonase, and Arnuity. Continue CPAP. Patient was informed and verbally consented to the use of an ambient scribe for clinic note documentation during this visit.
[2025-05-03 15:35] VITALS: BP 90/54; PULSE 83; RESP 18; TEMP 36.2; O2SAT 93; BMI 39.7
== END 2025-05-03 16:34 | disposition home or self-care (01) ==
LOC: HO.HMCH 15:01
DX: I10 Essential (primary) hypertension (principal); E11.65 Type 2 diabetes mellitus with hyperglycemia; Z96.642 Presence of left artificial hip joint; S73.005D Unspecified dislocation of left hip, subsequent encounter; G47.33 Obstructive sleep apnea (adult) (pediatric); S91.104A Unspecified open wound of right lesser toe(s) without damage to nail, initial encounter; J45.20 Mild intermittent asthma, uncomplicated; J30.9 Allergic rhinitis, unspecified

== ENCOUNTER → 2025-05-03 15:01 | Outpatient (BNVA) | payer MEDICARE, SELFPAY | DX: I10 Essential (primary) hypertension (principal); E11.65 Type 2 diabetes mellitus with hyperglycemia; G47.33 Obstructive sleep apnea (adult) (pediatric); J45.20 Mild intermittent asthma, uncomplicated; J30.9 Allergic rhinitis, unspecified; S91.104D Unspecified open wound of right lesser toe(s) without damage to nail, subsequent encounter; Z96.642 Presence of left artificial hip joint | CPT/HCPCS: 99495 ==

== ENCOUNTER → 2025-05-07 23:59 | Outpatient (BNV) | payer MEDICARE, SELFPAY | PROVIDERS: PCP Internal Medicine; Visit Provider Internal Medicine | DX: S91.104D Unspecified open wound of right lesser toe(s) without damage to nail, subsequent encounter (principal); T84.021D Dislocation of internal left hip prosthesis, subsequent encounter; E11.40 Type 2 diabetes mellitus with diabetic neuropathy, unspecified | CPT/HCPCS: G0179 ==

== ENCOUNTER 2025-05-28 14:44 | Outpatient (AMB) | payer MEDICARE, SELFPAY ==
--- OUTSIDE RECORDS SUMMARY | 2024-10-19 05:15 | XMS_ITS ---
Author Organization [facility] [place] Address [address] [place] [address] Care Team Providers Care Studio Camera Operator Name Role Phone Daniel Romano Primary Care Provider Chantel Smith Unavailable [phone] Allergies Allergen (clinical drug ingredient) Drug/Non Drug [...] Active Encounters Encounter Location Date Provider Diagnosis [facility] [address] [address] 10/19/2024 Chantel Naresh Plan Of Treatment Next Appt Details Provider Name:Chantel Askew allison, 06/28/2025 03:45:00 PM, [address] [place] [address], [address], Progress Notes * Festus MUNOZDOB:1950 ( 74 yo M)Acc No.[id number]:10/19/2024 Progress Note Patient: Festus BARRIENTOS Provider: Rosemary Infante DPM :1950 A ge:74 Y S ex:Male Date:10/19/2024 Address:[address] [place] [address], [place] Pcp:Daniel Romano Subjective: * Chief Complaints: * [...] 10/19/2024 Generated for Lorrie schaefer/Tequila/Barbara on: 0 05/28/2025 08:10 PM EDT
--- OUTSIDE RECORDS SUMMARY | 2025-02-12 10:30 | XMS_ITS ---
Author Organization [facility] [place] [place] Address [address] [place] [address] Care Team Providers Care Six Color Press Operator Name Role Phone Daniel Romano Primary Care Provider Chantel Smith Unavailable [phone] Medications Medication SIG (Take, Route, Frequency, Duration) Notes Start Date End Date Status Ozempic (0.25 or 0.5 MG/DOSE) Once a week Not-Taking Aspirin 81 MG 1 tablet Orally Once a day Not-Taking flovent HFA prn Not-Taki ng Ventolin HFA 108 (90 Base) MCG/ACT Inhalation PRN PRN Not-Taking Tylenol 650mg 2 pills Not-Ta lul Simvastatin 20 MG Orally Ac tive Multivitamin Active traZODone HCl 100 MG 1 tablet at bedtime Orally Once a day Active Ciclopirox Olamine 0.77 % 1 application to affected area Externally Twice a day to effected areas on feet; Duration: 30 days 04/17/2024 Active Extra Depth Diabetic Shoes with 3 Pair Custom heat-molded multi-density innersoles for 1 year Dx: Active Fluticasone Propionate 50 MCG/ACT 2 sprays (1 spray in each nostril) Nasally Once a day Active Gabapentin 600 MG Orally Bedtime Active Glucosamine Active metFORMIN HCl 500 MG Orally Twice a day Active Lisinopril Active Amoxicillin 500 MG 4pills Orally Prevent infection (dentist & surgery) PRN Active Ozempic Active Ciclopirox Olamine 0.77 % 1 application to affected area Externally Twice a day to effected areas on feet; Duration: 30 days Active Diflucan 200 MG 1 tablet Orally Once a week; Duration: 30 days Not-Taking Encounters Encounter Location Date Provider Diagnosis [facility] [address] [address] 02/12/2025 Chanteljulian Infante Plan Of Treatment Next Appt Details Provider Name:Chantel cooper, 06/28/2025 03:45:00 PM, [address] [place], [address], Progress Notes * ALEXANDERFestusDOB:1950 ( 74 yo M)Acc No.[id number]:02/12/2025 Progress Note Patient: Festus BARRIENTOS Provider: Rosemary Infante DPM :1950 A ge:74 Y S ex:Male Date:02/12/2025 Address:[address] [place] [address], [facility] [id number] Pcp:Daniel Romano Subjective: * Chief Complaints: * * Medical History: * Medications: T aking Ozempic , Taking Amoxicillin 500 MG 4pills [...] Tablet 1 tablet Orally Once a week Objective: * Vitals: Assessment: Plan: * Treatment: * Images: * The named appointment provid er may or may not be the originator of this progress note, and it is not deemed complete until electronically signed by the appointment provider. Sign off status: Pending * Provider: Rosemary Infante DPM Date: 0 02/12/2025 Generated for Lorrie schaefer/Tequila/Barbara on: 05/28/2025 08:11 PM EDT
--- NOTE | 2025-05-28 15:01 | MHC.OFFVIS ---
Intake Visit Reasons: PO - left hip vishal revision 04/17/25 NE Intake Note: Festus is a 74 year old male who presents today for a post operative appointment about 5 weeks s/p Left Hip Hemiarthroplasty Revision 04/17/25. Patient reports that he is doing well, he has very mild pain that increases with activity. He feels stiff after sitting for prolonged periods of time. He takes Tylenol PRN which is helping. Allergies terbinafine (From LAMISIL) Adverse Reaction (Intermediate, Verified 05/03/25 15:49) GI UPSET Lamisil Allergy (Unknown, Uncoded 05/03/25 15:49) Stomach Upset HPI HPI PO - left hip vishal revision 04/17/25 NE: Details: Festus is a 74 year old male who presents today for a post operative appointment about 5 weeks s/p Left Hip Hemiarthroplasty Revision 04/17/25. He sustained two dislocations in quick succession. Intra operatively there was a fracture of the posterosuperior acetabular rim but the his was stable with a +7.5 head. Patient reports that he is doing well, he has very mild pain. He has returned to work that is largely sedentary. He feels stiff after sitting for prolonged periods of time. He takes Tylenol PRN which is helping. COUNTS INCLUDE 234 BEDS AT THE [facility] Medical History Lung nodule SOB (shortness of breath) on exertion Impacted cerumen of both ears Aortic dilatation Cholelithiasis Obstructive sleep apnea Erectile dysfunction Hypercholesterolemia Peripheral neuropathy Asthma Type 2 diabetes mellitus with hyperglycemia Chronic low back pain Hypertension Surgical History S/P ORIF (open reduction internal fixation) fracture History of left knee replacement History of total right knee replacement History of right hip replacement History of pericardiectomy H/O lumbar discectomy Family History Mother Mental health disorder Social History Household Members: Spouse Housing: House Do you presently have visiting nurse or other home services: Yes Alcohol intake: current Alcohol intake frequency: holidays/special occasions only Comment: COUNTS CORRECT Patient Tobacco Use Status: Former Tobacco user Tobacco use type: Cigarette Years Smoked: stopped 1994 e-Cigarette/Vaping Use: Never Used Second Hand Smoke Exposure: Yes Advance Directives Date on File: 12/26/21 service: Yes Current occupational status: retired Cognitive needs: No Hearing needs: Yes Vision needs: Yes Physical Exam Extrem Other: Minimal gait antalgia. No pain with hip ROM DP+2 SILT and Firing ehl/ta/gc Results Reviewed Results Reviewed: I personally reviewed relevant radiographs. Left hemiarthroplasty in position unchanged from previous radiographs. Assessment & Plan Assessment & Plan (1) Status post hemiarthroplasty of left hip: Code(s): Z96.642 - Presence of left artificial hip joint Category: Surgical Plan: S/p revision Hemiarthroplasty left hip for instability. He is doing well and ambulating with a walker. He has been engaging in PT and has returned to work. He has modified his sleeping environment to avoid the type of fall that caused the dislocation 6 weeks ago. Follow up 6 weeks. January d/c ASA in one week. Orders: Orders XR pelvis 1-2V 05/28/25 M25.559 - Pain in unspecified hip Coding Level of Care Code Global (89283) Diagnoses Status post hemiarthroplasty of left hip Z96.642
--- OUTSIDE RECORDS SUMMARY | 2025-05-28 20:11 | XMS_ITS | Patient Health Record ---
Author Organization [facility] Address [address] [place] [address] Care Team Providers Care Ad Operations Specialist Name Role Phone Daniel Romano MD Primary Care Provider Mac Rose [phone] Allergies Allergen (clinical drug ingredient) Drug/Non Drug [...] Problem Status W/U Status Risk Notes Problem [id number] Encounter for screening for malignant neoplasm of colon (Z12.11) Active confirmed Problem [id number] Aspirin long-term use (Z79.82) Active confirmed Problem 74450961 Hypertension, unspecified type (I10) Active confirmed Plan Of Treatment Future Test Test Name Order Date COLONOSCOPY 12/30/2017 Insurance Providers Payer Name Payer Address Payer Phone Subscriber Number Group Number Insured Name Patient Relationship to Insured Coverage Start Date Coverage End Date MEDICARE OF [place] [address] [place] [address] [id number] VEE SAL Self - patient is the insured MEDICAID OF [facility] [address] [place] [address] [id number] VEE SAL Self - patient is the insured Medical (General) History Medical History History ICD Code Denies LA,CVA,renal disease COPD NIDDM Neuropathy in feet Sleep apnea--uses CPAP Negative colonoscopies in 31 12 and 2006 other than diverticulosis and internal hemorrhoids Surgical History Surgery Date(Month/Year) Left knee replacement 2015 Right knee replacement 2014 Right hip replacement 2013 Metal plates due to femur surgery 2016 Pericarditis with pericardectomy in the Rectal fistula Lumbar disc
--- OUTSIDE RECORDS SUMMARY | 2025-05-28 20:11 | XMS_ITS | Patient Health Record ---
Author Organization [facility] Address [address] [place] [address] Care Team Providers Care Physician Underwriter Name Role Phone Daniel Romano Primary Care Provider Chantel Smith Unavailable [phone] Rayshawn Avendaño Unavailable [phone] Allergies Allergen (clinical drug ingredient) Drug/Non Drug Allergy documented on EMR Reaction Allergy Type Onset Date Status Lamisil sick Drug Allergy Active Results Component Value Reference Range Notes HEMOGLOBIN A1C (GLYCOHEMOGLO BIN) Reviewed date:03/28/2025 03:28:57 [...] Polyneuropathy due to type 2 diabetes mellitus (185488316) Type 2 diabetes mellitus with diabetic polyneuropathy (E11.42) Active confirmed Vital Signs Blood pressure diastolic 65 mm Hg 03/28/2025 Height 5ft 9.5in in 03/28/2025 Blood pressure systolic 128 mm Hg 03/28/2025 Weight 270 lbs 03/28/2025 BMI 39.3 kg/m2 03/28/2025 Procedures Procedure Date Ordered Date Performed Result Body Sit e 11551-WEGKJFN NAIL, 6 OR MORE 07/19/2024 N/A 57739-WHCM SKIN LESIONS, 2 TO 4 07/19/2024 N/A 46411-LZXAHER NAIL, 6 OR MORE 10/24/2024 N/A 22937-SVRR SKIN LESIONS, 2 TO 4 10/24/2024 N/A 43492-WHFKGGD NAIL, 6 OR MORE 03/28/2025 N/A 93645-LXST SKIN LESIONS, 2 TO 4 03/28/2025 N/A Encounters Encounter Location Date Provider Diagnosis [address] [address] 07/19/2024 Chantel Infante Type 2 diabetes mellitus with diabetic polyneuropathy E11.42 and Tinea unguium B35.[address] [address] 10/24/2024 Rayshawn Avendaño Type 2 diabetes mellitus with diabetic polyneuropathy E11.42 and Tinea unguium B35.[address] [address] 03/28/2025 Chantel Infante Type 2 diabetes mellitus with diabetic polyneuropathy E11.42 and Tinea unguium B35.[address] [address] 02/09/2025 Chantel Infante Assessments Encounter Date Diagnosis (ICD Code) Assessment Notes Treatment Notes Treatment Clinical Notes Section Notes 10/24/2024 Type 2 diabetes mellitus with diabetic polyneuropathy (ICD-10 - E11.42) 03/28/2025 Type 2 diabetes mellitus with diabetic polyneuropathy (ICD-10 - E11.42) 07/19/2024 Type 2 diabetes mellitus with diabetic polyneuropathy (ICD-10 - E11.42) 07/19/2024 Tinea unguium (ICD-10 - B35.1) 03/28/2025 Tinea unguium (ICD-10 - B35.1) 10/24/2024 Tinea unguium (ICD-10 - B35.1) Plan Of Treatment Pending Test Test Name Order Date *Liver Function Test (LFT) 12/16/2016 84868-UXJSCOD NAIL, 6 OR MORE 03/17/2017 03124-HKVRWQS NAIL, 6 OR MORE 06/16/2017 48098-REJIFGL NAIL, 6 OR MORE 09/15/2017 26322-HKTCTPK NAIL, 6 OR MORE 12/15/2017 07653-CROQLDU NAIL, 6 OR MORE 03/21/2018 85277-LFRBRXF NAIL, 6 OR MORE 06/27/2018 53441-ZBMBBBS NAIL, 6 OR MORE 07/19/2024 94092-IVFNRZI NAIL, 6 OR MORE 10/24/2024 33473-MGCMZXY NAIL, 6 OR MORE 03/28/2025 77991-TKSCEET NAIL, 6 OR MORE 12/16/2016 23486-IZNH SKIN LESIONS, OVER 4 09/28/19 19 73054-BAKP SKIN LESIONS, OVER 4 06/27/20 18 46862-BYHL SKIN LESIONS, OVER 4 03/21/20 18 13702-DVZT SKIN LESIONS, OVER 4 03/29/20 19 76291-HKHO SKIN LESIONS, OVER 4 07/03/20 19 87841-JPSI SKIN LESIONS, OVER 4 10/09/19 20 00975-KMXZ SKIN LESIONS, OVER 4 01/10/20 20 15592-EKGA SKIN LESIONS, OVER 4 04/10/20 83222-DXQY SKIN LESIONS, OVER 4 07/10/20 20 38721-WXLN SKIN LESIONS, OVER 4 10/02/19 21 30333-YOGQ SKIN LESIONS, OVER 4 01/02/20 21 90150-HLYB SKIN LESIONS, OVER 4 04/03/20 21 87105-YDQL SKIN LESIONS, OVER 4 07/16/20 21 01460-WIFS SKIN LESIONS, OVER 4 11/13/19 22 20961-SUUQ SKIN LESIONS, 2 TO 4 12/16/19 18 22867-IHAF SKIN LESIONS, 2 TO 4 01/05/20 19 00139-UIHD SKIN LESIONS, 2 TO 4 07/19/20 24 06637-TCSE SKIN LESIONS, 2 TO 4 03/28/20 25 29800-TCRU SKIN LESIONS, 2 TO 4 10/24/19 25 85827-FQXXJIBJ OF HEMATOMA/FLUID 023 Next Appt Details Provider Name:Chantel Askew allison, 06/28/2025 03:45:00 PM, [address] [facility], [place], [address], Insurance Providers Payer Name Payer Address Payer Phone Subscriber Number Group Number Insured Name Patient Relationship to Insured Coverage Start Date Coverage End Date Medicare National Govt [facility] [address] [place] [address] [id number] Festus Munoz Self - patient is the insured 2 [employer] [address] [place] [address] [id number] Alexander Festus Self - patient is the [...]
== END 2025-05-28 15:30 | disposition home or self-care (01) ==
PROVIDERS: PCP Internal Medicine; Visit Provider Orthopaedic Surgery
DX: Z96.642 Presence of left artificial hip joint (principal)
CPT/HCPCS: 99024

== ENCOUNTER 2025-05-28 14:44 | Outpatient (REF) | payer MEDICARE, SELFPAY ==
--- NOTE | ~2025-05-28 | XR_ITS ---
EXAMINATION: XR PELVIS 1-2 VIEWS HISTORY: M25.559 - Pain in unspecified hip COMPARISON: Comparison is made with the prior examination dated 05/01/2025. FINDINGS: Two views of the pelvis were obtained. The patient is status post bilateral total hip arthroplasty. The orthopedic elements are in anatomic alignment. There is no radiographic evidence of loosening. There is no fracture or dislocation. XR/XR pelvis 1-2V IMPRESSION: Status post bilateral total hip arthroplasty. Electronically signed by: Mac Zamora MD 05/28/2025 03:09 PM EDT
== END 2025-05-28 14:45 | disposition home or self-care (01) ==
LOC: HO.HOSX 14:44
PROVIDERS: PCP Internal Medicine; Visit Provider Orthopaedic Surgery
DX: Z47.89 Encounter for other orthopedic aftercare (principal); Z96.642 Presence of left artificial hip joint
CPT/HCPCS: 72170; 99212

== ENCOUNTER → 2025-05-28 14:54 | Outpatient (BNV) | payer MEDICARE, SELFPAY | PROVIDERS: PCP Internal Medicine; Visit Provider Radiology Diagnostic Radiology | DX: Z96.643 Presence of artificial hip joint, bilateral (principal) | CPT/HCPCS: 72170 ==

== ENCOUNTER 2025-06-11 15:35 | Outpatient (AMB) | payer MEDICARE, SELFPAY ==
--- OUTSIDE RECORDS SUMMARY | 2024-10-19 05:15 | XMS_ITS ---
Author Organization [facility] [place] Address [address] [place] [address] Care Team Providers Care Tenter Feeder Name Role Phone Daniel Romano Primary Care Provider Chantel Smith Unavailable [phone] Allergies Allergen (clinical drug ingredient) Drug/Non Drug [...] Active Encounters Encounter Location Date Provider Diagnosis [facility] [address] [address] 10/19/2024 Chantel Naresh Plan Of Treatment Next Appt Details Provider Name:Chantel Askew allison, 06/28/2025 03:45:00 PM, [address] [place] [address], [address], Progress Notes * Festus MUNOZDOB:1950 ( 74 yo M)Acc No.[id number]:10/19/2024 Progress Note Patient: Festus BARRIENTOS Provider: Rosemary Infante DPM :1950 A ge:74 Y S ex:Male Date:10/19/2024 Address:[address] [place] [address], [place] Pcp:Daniel Romano Subjective: * Chief Complaints: * [...] 10/19/2024 Generated for Lorrie schaefer/Tequila/Barbara on: 0 06/11/2025 05:38 PM EDT
--- OUTSIDE RECORDS SUMMARY | 2025-02-12 10:30 | XMS_ITS ---
Author Organization [facility]una[facility] [place] Address [address] [place] [address] Care Team Providers Care Ships Or Barges Loader Name Role Phone Daniel Romano Primary Care Provider Chantel Smith Unavailable [phone] Medications Medication SIG (Take, Route, Frequency, Duration) [...] Not-Taking Encounters Encounter Location Date Provider Diagnosis [facility] [address] [address] 02/12/2025 Chanteljulian Infante Plan Of Treatment Next Appt Details Provider Name:Chantel cooper, 06/28/2025 03:45:00 PM, [address] [place], [address], Progress Notes * ALEXANDERFestusDOB:1950 ( 74 yo M)Acc No.[id number]:02/12/2025 Progress Note Patient: Festus BARRIENTOS Provider: Rosemary Infante DPM :1950 A ge:74 Y S ex:Male Date:02/12/2025 Address:[address] [place] [address], [id number] Pcp:Daniel Romano Subjective: * Chief Complaints: * [...] 0 02/12/2025 Generated for Lorrie schaefer/Tequila/Barbara on: 06/11/2025 05:39 PM EDT
[2025-06-11 15:40] VITALS: BP 136/68; PULSE 77; O2SAT 98; BMI 39.6
--- NOTE | 2025-06-11 15:40 | MHC.PC.OV ---
Vital Signs 06/11/25 15:40 Height 5 ft 9 in Weight 268 lb BMI 39.6 BP 136/68 Blood Pressure Location Lt brachial Position Sitting Pulse 77 Pulse Source Pulse Oximeter Pulse Oximetry (%) 98 Oxygen Delivery Method Room Air Intake Visit Reasons: ear flush/DM Allergies terbinafine (From LAMISIL) Adverse Reaction (Intermediate, Verified 06/11/25 15:40) GI UPSET Lamisil Allergy (Unknown, Uncoded 06/11/25 15:40) Stomach Upset Tobacco use date assessed: 05/03/25 Fall risk assessment: No Falls in past year Last assessed Fall Risk: 06/11/25 Dental Screening Dental Screen Date: 05/03/25 [facility] Medical History (Updated 06/11/25 @ 16:14 by Daniel Romano MD) Impacted cerumen of both ears Lung nodule SOB (shortness of breath) on exertion Aortic dilatation Cholelithiasis Obstructive sleep apnea Erectile dysfunction Hypercholesterolemia Peripheral neuropathy Asthma Type 2 diabetes mellitus with hyperglycemia Chronic low back pain Hypertension Surgical History (Updated 05/07/25 @ 00:38 by HIEU Cosby) S/P ORIF (open reduction internal fixation) fracture History of left knee replacement History of total right knee replacement History of right hip replacement History of pericardiectomy H/O lumbar discectomy Family History Mother Mental health disorder Social History Household Members: Spouse Housing: House Do you presently have visiting nurse or other home services: Yes Alcohol intake: current Alcohol intake frequency: holidays/special occasions only Comment: COUNTS CORRECT Patient Tobacco Use Status: Former Tobacco user Tobacco use type: Cigarette Years Smoked: stopped 1994 e-Cigarette/Vaping Use: Never Used Second Hand Smoke Exposure: Yes Advance Directives Date on File: 12/26/21 service: Yes Current occupational status: retired Cognitive needs: No Hearing needs: Yes Vision needs: Yes Questionnaire Thrive Questionnaire Date Thrive assessed: 06/04/25 I am a: Patient What is your living situation today?: I have a steady place to live Within the past 12 months, did the food you bought not last and you didn't have the money to get more?: Never true Within the past 12 months, did you worry whether your food would run out before you got money to buy more?: Never true Do you have trouble paying for medicines?: No Do you have trouble getting transportation to medical appointments?: No Do you have trouble paying your heating and electricity bill?: No Do you have trouble taking care of your child, family member or friend?: No Do you have trouble with day-to-day activities such as bathing, preparing meals, shopping, managing finances, etc.?: No Are you currently unemployed and looking for a job?: No Are you interested in more education?: No Please select the resources that you would like help with: None Currently or been in a relationship where the following occur: No concerns reported THRIVE Score: 0 AUDIT C Alcohol Use Questionnaire (AUDIT-C) 1. How often do you have a drink containing alcohol?: 2-4 times a month Total Score: 2 NAMITA-7 AMB Questionnaire NAMITA-7 Date NAMITA - 7 assessed: 05/03/25 Feeling nervous, anxious, or on edge: 0 = Not at all Not being able to stop or control worryin = Not at all Worrying too much about different things: 0 = Not at all Trouble relaxin = Not at all Being so restless that it is hard to sit still: 0 = Not at all Becoming easily annoyed or irritable: 0 = Not at all Feeling afraid as if something awful might happen: 0 = Not at all Total NAMITA-7 score (0-4 normal; 5-9 mild; 10-14 moderate; 15-21 severe): 0 Source: Developed by Drs. Mac Echeverria, Supriya Weston, Kyle Moon and colleagues, with an educational teofilo from [employer]. Physical exam (Primary Care) Vital Signs: Last Vital Signs Pulse 77 06/11/25 15:40 BP 136/68 06/11/25 15:40 Pulse Ox 98 06/11/25 15:40 Oxygen Delivery Method Room Air 06/11/25 15:40 BMI result Body Mass Index 39.6 Tobacco/Smoking Status: Tobacco use Status Tobacco use date assessed 05/03/25 06/11/25 15:42 Patient Tobacco Use Status Former Tobacco user 06/11/25 15:42 Tobacco use type Cigarette 06/11/25 15:42 e-Cigarette/Vaping Use Never Used 06/11/25 15:42 Thrive Assessment: Date of Thrive Assessment Date Thrive assessed 06/04/25 06/11/25 15:42 Currently or been in a relationship where the following occur: No concerns reported Const Other: impacted cerument bilateral General: alert; No acute distress Eyes Conjunctivae: conjunctivae normal Resp Auscultation: clear to auscultation bilaterally Cardio Rate: regular rate Rhythm: regular rhythm GI Inspection: Yes normal to inspection Extrem General: Yes normal to inspection and No edema Office Procedures Cerumen Removal From which ear canal was the cerumen removed: bilateral Removal: irrigation, otoscope w/curette, cerumen loop/spoon and other Notes: patient tolerated procedure well, no complications and ear canal clear 21644-Zgb Irrigation/Lavage Coding Level of Care Code Est Pt Level 4 (78083) Complex EM visit Add On G2211 Diagnoses Type 2 diabetes mellitus with hyperglycemia, without long-term current use of insulin E11.65 Diabetes mellitus roasterman insulin use: without detention use Essential hypertension I10 Hypertension type: essential hypertension Hypercholesterolemia E78.00 Closed dislocation of left hip, subsequent encounter S73.005D Encounter type: subsequent encounter Obstructive sleep apnea G47.33 Mild intermittent asthma without complication J45.20 Asthma complication type: uncomplicated Asthma persistence: intermittent Asthma severity: mild Impacted cerumen of both ears H61.23 CPT Codes Office Procedure - CPT: 09581-Ulw Irrigation/Lavage ([id number]) Assessment & Plan Assessment & Plan (1) Type 2 diabetes mellitus with hyperglycemia: Comment: IA 06/2022 Code(s): E11.65 - Type 2 diabetes mellitus with hyperglycemia Category: Medical Qualifiers: Diabetes mellitus detention insulin use: without detention use Qualified Code(s): E11.65 - Type 2 diabetes mellitus with hyperglycemia Plan: Decrease the amount of carbohydrate intake, pasta, bread, rice and potatoes are all sugar and that is aside from all the sweet stuff, remember that fruits are good but they are Sweet also. Hemoglobin A1c goal of less than 7.0. Patient on Ozempic 2 mg once a week (2) Hypertension: Code(s): I10 - Essential (primary) hypertension Category: Medical Qualifiers: Hypertension type: essential hypertension Qualified Code(s): I10 - Essential (primary) hypertension Plan: Continue with blood pressure medication. Decrease salt intake and exercise on lisinopril 5 mg once a day (3) Hypercholesterolemia: Code(s): E78.00 - Pure hypercholesterolemia, unspecified Category: Medical Plan: Avoid fried foods, chicken skin, eggs, butter margarine, pastries and meat. Be it pork or beef they have a lot of cholesterol on simvastatin 40 mg once a day (4) Dislocation of hip, left, closed: Code(s): S73.005A - Unspecified dislocation of left hip, initial encounter Category: Medical Qualifiers: Encounter type: subsequent encounter Qualified Code(s): S73.005D - Unspecified dislocation of left hip, subsequent encounter Plan: Patient just had a left hip surgery after a recent fall. (5) Obstructive sleep apnea: Comment: September 2021 uses the CPAP every night an benefits from this Code(s): G47.33 - Obstructive sleep apnea (adult) (pediatric) Category: Medical Plan: Continue to use the CPAP more than 4 hours a night and benefits from this. (6) Asthma: Code(s): J45.909 - Unspecified asthma, uncomplicated Category: Medical Qualifiers: Asthma complication type: uncomplicated Asthma persistence: intermittent Asthma severity: mild Qualified Code(s): J45.20 - Mild intermittent asthma, uncomplicated Plan: Stable (7) Impacted cerumen of both ears: Code(s): H61.23 - Impacted cerumen, bilateral Category: Medical Plan: irrigation and scoop used TM intact Plan History of Present Illness The patient is a 74-year-old male presenting for follow-up after left hip arthroplasty and dislocation. He has a history of hypertension, diabetes mellitus, asthma, hypercholesterolemia, chronic low back pain, and obstructive sleep apnea. The patient underwent left hip arthroplasty and follows up with orthopedics since the surgery on April 17, 2025. He experienced a left hip dislocation and was seen by a physician's school bus driver/teacher assistant on May 03, 2025. The dislocation occurred after slipping onto the floor twice in one day, leading to a change in the hip prosthesis by Dr. Brareto. The patient reports using a CPAP machine for obstructive sleep apnea, which he uses for more than 4 hours a night, and finds beneficial. He is currently on Ozempic 2 mg once a week for diabetes management, with a goal to maintain hemoglobin A1c below 7.0%. His last hemoglobin A1c was in the normal range in April. The patient is on lisinopril 5 mg once a day for hypertension and simvastatin 40 mg once a day for hypercholesterolemia. Blood work from April 19 showed anemia with hemoglobin at 10.3 g/dL and hematocrit at 30%, while electrolytes were normal and kidney function was stable. Blood sugar was noted to be 117 mg/dL at that time. Health Maintenance - Preventative care: Up to date with colonoscopy - Vaccinations: Scheduled for flu and COVID vaccines Social History - Exercise: Engages in physical therapy, working at a [employer] Systems - Musculoskeletal: Reports muscle spasms in the left hip, denies seizures - Cardiovascular: Reports slower heart rate, denies dizziness or syncope Physical Exam - Cardiovascular: Regular rate and rhythm, slower side, extra beats noted - Ears: Earwax cleaned, no obstruction noted Results - Labs: Anemia with hemoglobin at 10.3 g/dL and hematocrit at 30% - Labs: Blood sugar at 117 mg/dL - Labs: Electrolytes normal, kidney function stable - Labs: Hemoglobin A1c in normal range in April Plan Patient was informed and verbally consented to the use of an ambient scribe for clinic note documentation during this visit. 1. Hypertension The patient is currently managed on lisinopril 5 mg once a day. 2. Diabetes Mellitus The patient is on Ozempic 2 mg once a week with a goal to maintain hemoglobin A1c below 7.0%. 3. Hypercholesterolemia The patient is on simvastatin 40 mg once a day. 4. Obstructive Sleep Apnea The patient continues to use CPAP for more than 4 hours a night and finds it beneficial. 5. Anemia Blood work from April 19 showed anemia with hemoglobin at 10.3 g/dL and hematocrit at 30%. A follow-up blood test is planned for three months to monitor the blood count. 6. Status Post Left Hip Arthroplasty The patient follows up with orthopedics since the surgery on April 17, 2025. 7. Status Post Left Hip Dislocation The dislocation occurred after slipping onto the floor twice in one day, leading to a change in the hip prosthesis by Dr. Barreto. Discussion Notes During the visit, we discussed the management of the patient's chronic conditions including hypertension, diabetes, and hypercholesterolemia. We reviewed the importance of medication adherence and the benefits of using CPAP for obstructive sleep apnea. The patient was informed about the need for follow-up blood tests to monitor anemia and the importance of maintaining regular orthopedic follow-ups post-hip arthroplasty and dislocation. Patient Instructions - Continue taking lisinopril, Ozempic, and simvastatin as prescribed. - Use CPAP machine for at least 4 hours each night. - Schedule follow-up blood test in three months to monitor anemia. - Attend regular orthopedic follow-ups for hip management. - Get flu and COVID vaccines as scheduled.
--- OUTSIDE RECORDS SUMMARY | 2025-06-11 17:39 | XMS_ITS | Patient Health Record ---
[facility] Organization [facility] Address [address] [place] [address] Care Team Providers Care Wood Carving Lathe Operator Name Role Phone Daniel Romano Primary Care Provider Chantel Smith Unavailable [phone] Rayshawn Avendaño Unavailable [phone] Allergies Allergen (clinical drug ingredient) Drug/Non Drug [...] Polyneuropathy due to type 2 diabetes mellitus ([id number]) Type 2 diabetes mellitus with diabetic polyneuropathy (E11.42) Active confirmed Vital Signs Blood pressure diastolic 65 mm Hg 03/28/2025 Height 5ft 9.5in in 03/28/2025 Blood pressure systolic 128 mm Hg 03/28/2025 Weight 270 lbs 03/28/2025 BMI 39.3 kg/m2 03/28/2025 Procedures Procedure Date Ordered Date Performed Result Body Sit e 61119-EUDPLWD NAIL, 6 OR MORE 07/19/2024 N/A 85423-BITT SKIN LESIONS, 2 TO 4 07/19/2024 N/A 74481-ZVUOJUM NAIL, 6 OR MORE 10/24/2024 N/A 58847-QPWC SKIN LESIONS, 2 TO 4 10/24/2024 N/A 78662-UUKGGBL NAIL, 6 OR MORE 03/28/2025 N/A 68922-HFQE SKIN LESIONS, 2 TO 4 03/28/2025 N/A Encounters Encounter Location Date Provider Diagnosis [address] [address] 07/19/2024 Chantel Infante Type 2 diabetes mellitus with diabetic polyneuropathy E11.42 and Tinea unguium B35.[address] [address] 10/24/2024 Rayshawn Jarocho Type 2 diabetes mellitus with diabetic polyneuropathy E11.42 and Tinea unguium B35.[address] [address] 03/28/2025 Chantel Infante Type 2 diabetes mellitus with diabetic polyneuropathy E11.42 and Tinea unguium B35.[address] [address] 02/09/2025 Chantel Infante Assessments Encounter Date Diagnosis [...] Order Date *Liver Function Test (LFT) 12/16/2016 94885-IBHWVOS NAIL, 6 OR MORE 03/17/2017 80512-PGGVUZS NAIL, 6 OR MORE 06/16/2017 72494-GEAGOPO NAIL, 6 OR MORE 09/15/2017 81775-SOGNZNR NAIL, 6 OR MORE 12/15/2017 07687-RTNGEPB NAIL, 6 OR MORE 03/21/2018 97864-VEHVYHF NAIL, 6 OR MORE 06/27/2018 56982-SHFRCWX NAIL, 6 OR MORE 07/19/2024 30693-EUJNRVM NAIL, 6 OR MORE 10/24/2024 84531-UBAFVMA NAIL, 6 OR MORE 03/28/2025 01393-KCWTDDH NAIL, 6 OR MORE 12/16/2016 55508-XBOC SKIN LESIONS, OVER 4 09/28/19 19 27165-DTSL SKIN LESIONS, OVER 4 06/27/20 18 92762-UJOQ SKIN LESIONS, OVER 4 03/21/20 18 62318-ESTL SKIN LESIONS, OVER 4 03/29/20 19 94770-FFIY SKIN LESIONS, OVER 4 07/03/20 19 71678-TBOH SKIN LESIONS, OVER 4 10/09/19 20 58427-BDJT SKIN LESIONS, OVER 4 01/10/20 20 17067-DJLJ SKIN LESIONS, OVER 4 04/10/20 29741-CJYQ SKIN LESIONS, OVER 4 07/10/20 20 57160-FXST SKIN LESIONS, OVER 4 10/02/19 21 24366-BLBK SKIN LESIONS, OVER 4 01/02/20 21 66532-NVLV SKIN LESIONS, OVER 4 04/03/20 21 97283-JELR SKIN LESIONS, OVER 4 07/16/20 21 76454-DYAC SKIN LESIONS, OVER 4 11/13/19 22 11591-FUHL SKIN LESIONS, 2 TO 4 12/16/19 18 54590-EITW SKIN LESIONS, 2 TO 4 01/05/20 19 07332-YFJN SKIN LESIONS, 2 TO 4 07/19/20 24 04981-SSPU SKIN LESIONS, 2 TO 4 03/28/20 25 64095-RMSA SKIN LESIONS, 2 TO 4 10/24/19 25 14973-XLTAPNWZ OF HEMATOMA/FLUID 023 Next Appt Details Provider Name:Chantel Askew allison, 06/28/2025 03:45:00 PM, [address] [facility], [place], [address], Insurance Providers Payer Name Payer Address Payer Phone Subscriber Number Group Number Insured Name Patient Relationship to Insured Coverage Start Date Coverage End Date Medicare National Govt [facility] [address] [place] [address] [id number] Festus Munoz Self - patient is the insured 2 [employer] [address] [place] [address] [id number] Alexander Festus Self - patient is the [...]
--- OUTSIDE RECORDS SUMMARY | 2025-06-11 17:39 | XMS_ITS | Patient Health Record ---
Author Organization [facility] Address [address] [place] [address] Care Team Providers Care Mineral Wool Insulation Supervisor Name Role Phone Daniel Romano MD Primary Care Provider Mac Rose [phone] Allergies Allergen (clinical drug ingredient) Drug/Non Drug [...] Problem Status W/U Status Risk Notes Problem [id number] Encounter for screening for malignant neoplasm of colon (Z12.11) Active confirmed Problem [id number] Aspirin long-term use (Z79.82) Active confirmed Problem 76796764 Hypertension, unspecified type (I10) Active confirmed Plan Of Treatment Future Test Test Name Order Date COLONOSCOPY 12/30/2017 Insurance Providers Payer Name Payer Address Payer Phone Subscriber Number Group Number Insured Name Patient Relationship to Insured Coverage Start Date Coverage End Date MEDICARE OF [place] [address] [place] [address] [id number] VEE SAL Self - patient is the insured MEDICAID OF [facility] [address] [place] [address] [phone] [id number] VEE SAL Self - patient is the insured Medical (General) History Medical History History ICD Code Denies DE,CVA,renal disease COPD NIDDM Neuropathy in feet Sleep apnea--uses CPAP Negative colonoscopies in 31 12 and 2006 other than diverticulosis and internal hemorrhoids Surgical History Surgery Date(Month/Year) Left knee replacement 2015 Right knee replacement 2014 Right hip replacement 2013 Metal plates due to femur surgery 2016 Pericarditis with pericardectomy in the Rectal fistula Lumbar disc
== END 2025-06-11 16:25 | disposition home or self-care (01) ==
LOC: HO.HMCH 15:36
PROVIDERS: PCP Internal Medicine; Visit Provider Internal Medicine
DX: E11.65 Type 2 diabetes mellitus with hyperglycemia (principal); I10 Essential (primary) hypertension; E78.00 Pure hypercholesterolemia, unspecified; S73.005D Unspecified dislocation of left hip, subsequent encounter; G47.33 Obstructive sleep apnea (adult) (pediatric); J45.20 Mild intermittent asthma, uncomplicated; H61.23 Impacted cerumen, bilateral

== ENCOUNTER → 2025-06-11 15:35 | Outpatient (BNVA) | payer MEDICARE, SELFPAY | PROVIDERS: PCP Internal Medicine; Visit Provider Internal Medicine | DX: E11.65 Type 2 diabetes mellitus with hyperglycemia (principal); I10 Essential (primary) hypertension; E78.00 Pure hypercholesterolemia, unspecified; G47.33 Obstructive sleep apnea (adult) (pediatric); J45.20 Mild intermittent asthma, uncomplicated; H61.23 Impacted cerumen, bilateral; D64.9 Anemia, unspecified; S73.005D Unspecified dislocation of left hip, subsequent encounter; X58.XXXD Exposure to other specified factors, subsequent encounter; Z98.890 Other specified postprocedural states | CPT/HCPCS: 69210; 99212 ==

== ENCOUNTER 2025-07-09 14:28 | Outpatient (AMB) | payer MEDICARE, SELFPAY ==
--- OUTSIDE RECORDS SUMMARY | 2024-03-30 05:00 | XMS_ITS ---
Author Organization [facility] Address [address] [place] [address] Care Team Providers Care Rail Car Driver Name Role Phone Daniel Romano Primary Care Provider Chantel Smith Unavailable [phone] [facility] [phone] prado Encounters Encounter Location Date Provider Diagnosis [address] [address] 03/30/2024 [facility] Plan Of Treatment Next Appt Details Provider Name:Chantel cooper, 09/27/2025 03:30:00 PM, [address] [place], [address], Progress Notes * Festus MUNOZDOB:1950 ( 75 yo M)Acc No.[id number]:03/30/2024 Progress Note Patient: Festus BARRIENTOS Provider: Jitendra Bynum DPM :1950 A ge:73 Y S ex:Male Date:03/30/2024 [facility] [place] [place] Pcp:Daniel Romano Subjective: * Chief Complaints: * [address] prado[address] * Medical History: Objective: * Vitals: Assessment: Plan: * Treatment: * Images: * The named appointment provid er may or may not be the originator of this progress note, and it is not deemed complete until electronically signed by the appointment provider. Sign off status: Pending * Provider: Jitendra Bynum DPM Date: 0 03/30/2024 Generated for Lorrie Hernandez/Barbara on: 06:04 PM EDT
--- OUTSIDE RECORDS SUMMARY | 2024-10-19 05:15 | XMS_ITS ---
Author Organization [facility] [place] Address [address] [place] [address] Care Team Providers Care Attraction Attendant Name Role Phone Daniel Romano Primary Care Provider Chantel Smith Unavailable [phone] Allergies Allergen (clinical drug ingredient) Drug/Non Drug [...] Active Encounters Encounter Location Date Provider Diagnosis [facility] [address] [address] 10/19/2024 Chantel Infante Plan Of Treatment Next Appt Details Provider Name:Chantel Askew allison, 09/27/2025 03:30:00 PM, [address] [place] [address], [address], Progress Notes * Festus MUNOZDOB:1950 ( 75 yo M)Acc No.[id number]:10/19/2024 Progress Note Patient: Festus BARRIENTOS Provider: Rosemary Infante DPM :1950 A ge:74 Y S ex:Male Date:10/19/2024 Address:[address] [place], [place] [address] [place] Pcp:Daniel Romano Subjective: * Chief Complaints: * [...] 0 10/19/2024 Generated for Lorrie schaefer/Tequila/Barbara on: 06:04 PM EDT
--- OUTSIDE RECORDS SUMMARY | 2025-02-12 10:30 | XMS_ITS ---
Author Organization [facility]una[facility] [place] Address [address] [place] [address] Care Team Providers Care Mortgage Loan Originator Name Role Phone Daniel Romano Primary Care Provider Chantel Smith Unavailable [phone] Medications Medication SIG (Take, Route, Frequency, Duration) [...] Not-Taking Encounters Encounter Location Date Provider Diagnosis [facility] [address] [address] 02/12/2025 Chantel Infante Plan Of Treatment Next Appt Details Provider Name:Chantel cooper, 09/27/2025 03:30:00 PM, [address] [place], [address], Progress Notes * ALEXANDERFestusDOB:1950 ( 75 yo M)Acc No.[id number]:02/12/2025 Progress Note Patient: Festus BARRIENTOS Provider: Rosemary Infante DPM :1950 A ge:74 Y S ex:Male Date:02/12/2025 Address:[address] [place] [address], [facility] Pcp:Daniel Romano Subjective: * Chief Complaints: * [...] 0 02/12/2025 Generated for Lorrie schaefer/Tequila/Barbara on: 06:04 PM EDT
[2025-07-09 14:35] VITALS: BMI 39.6
--- NOTE | 2025-07-09 14:35 | A.OFFVIS_ITS ---
Vital Signs 07/09/25 14:35 Height 5 ft 9 in Weight 268 lb BMI 39.6 Intake Visit Reasons: PO - Left Hip Dick Revision 04/17/25 Intake Note: Festus is a 75 year old male who presents today for a post operative visit about 3 month s/p Left Hip Hemiarthroplasty Revision 04/17/25. He has returned to work and finished physical therapy with [facility] about 1 week ago Allergies terbinafine (From LAMISIL) Adverse Reaction (Intermediate, Verified 06/11/25 15:40) GI UPSET Lamisil Allergy (Unknown, Uncoded 06/11/25 15:40) Stomach Upset HPI HPI PO - Left Hip Dick Revision 04/17/25: Details: Three months status post left hip revision for traumatic dislocation. He has done well. He has had no further dislocations. He is walking with a walker or a cane. He does have a number of underlying deep issues but is hip feels good. [facility] Medical History (Updated 06/11/25 @ 16:14 by Daniel Romano MD) Impacted cerumen of both ears Lung nodule SOB (shortness of breath) on exertion Aortic dilatation Cholelithiasis Obstructive sleep apnea Erectile dysfunction Hypercholesterolemia Peripheral neuropathy Asthma Type 2 diabetes mellitus with hyperglycemia Chronic low back pain Hypertension Surgical History (Updated 05/07/25 @ 00:38 by HIEU Cosby) S/P ORIF (open reduction internal fixation) fracture History of left knee replacement History of total right knee replacement History of right hip replacement History of pericardiectomy H/O lumbar discectomy Family History Mother Mental health disorder Social History Household Members: Spouse Housing: House Do you presently have visiting nurse or other home services: Yes Alcohol intake: current Alcohol intake frequency: holidays/special occasions only Comment: COUNTS CORRECT Patient Tobacco Use Status: Former Tobacco user Tobacco use type: Cigarette Years Smoked: stopped 1994 e-Cigarette/Vaping Use: Never Used Second Hand Smoke Exposure: Yes Advance Directives Date on File: 12/26/21 service: Yes Current occupational status: retired Cognitive needs: No Hearing needs: Yes Vision needs: Yes Physical Exam Exam Exam: Festus is morbidly obese but can walk comfortably without a walker with a mild Trendelenburg gait. He has no pain with hip range of motion. His incision is clean dry and intact. Vital Signs: BMI result Body Mass Index 39.6 Assessment & Plan Assessment & Plan (1) Status post hemiarthroplasty of left hip: Code(s): Z96.642 - Presence of left artificial hip joint Category: Surgical Plan: Adonay is doing well status post revision for traumatic dislocation left hip hemiarthroplasty. He is careful not to squat deeply and is using assistive device for ambulation. I recommend he continue to do so and continue to try to lose weight maintain his health. He can follow up 6 months with x-rays. Coding Level of Care Code Global (27224) Diagnoses Status post hemiarthroplasty of left hip Z96.642
--- OUTSIDE RECORDS SUMMARY | 2025-07-09 18:04 | XMS_ITS | Patient Health Record ---
Author Organization [facility] Address [address] [place] [address] Care Team Providers Care Dye Room Helper Name Role Phone Daniel Romano Primary Care Provider Chantel Smith Unavailable [phone] Rayshawn Avendaño Unavailable [phone] Allergies Allergen (clinical drug ingredient) Drug/Non Drug Allergy documented on EMR Reaction Allergy Type Onset Date Status Lamisil sick Drug Allergy Active Results Component Value Reference Range Notes HEMOGLOBIN A1C (GLYCOHEMOGLO BIN) Reviewed date:03/28/2025 03:28:57 PM Interpretation: Performing Lab: Notes/Report: HEMOGLOBIN A1C % (HH) 5.1 HEMOGLOBIN A1C (GLYCOHEMOGLO BIN) Reviewed date:06/28/2025 03:27:42 PM Interpretation: Performing Lab: Notes/Report: HEMOGLOBIN A1C % (HH) 5.1 Reason For Referral No Information Medications Medication SIG (Take, Route, Frequency, Duration) Notes Start Date End Date Status Ozempic Active Extra Depth Diabetic Shoes with 3 Pair Custom heat-molded multi-density innersoles for 1 year Dx: Active Amoxicillin 500 MG 4pills Orally Prevent infection (dentist & surgery) PRN Active Ciclopirox Olamine 0.77 % 1 application to affected area Externally Twice a day to effected areas on feet; Duration: 30 days 04/17/2024 Active Simvastatin 20 MG Orally Ac tive traZODone HCl 100 MG 1 tablet at bedtime Orally Once a day Active metFORMIN HCl 500 MG Orally Twice a day Active Diflucan 200 MG 1 tablet Orally Once a week; Duration: 30 days Not-Taking Multivitamin Active Gabapentin 600 MG Orally Bedtime Active flovent HFA prn Not-Takanahi schaefer Lisinopril Active Tylenol 650mg 2 pills Not-Ta lul Ventolin HFA 108 (90 Base) MCG/ACT Inhalation PRN PRN Not-Taking Glucosamine Active Ciclopirox Olamine 0.77 % 1 application to affected area Externally Twice a day to effected areas on feet; Duration: 30 days Active Aspirin 81 MG 1 tablet Orally Once a day Not-Taking Fluticasone Propionate 50 MCG/ACT 2 sprays (1 spray in each nostril) Nasally Once a day Active Ozempic (0.25 or 0.5 MG/DOSE) Once a week Not-Taking Immunizations Vaccine Route Administration Date Status Comme nts Influenza Unknown 06/02/2017 Administered Influenza Unknown 06/13/2018 Administered Influenza Unknown 2022 Administered Influenza Unknown 06/14/2023 Administered Influenza Unknown 06/13/2024 Administered Influenza Unknown 06/13/2025 Administered Pneumococcal Unknown 05/22/2020 Administered COVID-19 Pfizer [...] Polyneuropathy due to type 2 diabetes mellitus (343404553) Type 2 diabetes mellitus with diabetic polyneuropathy (E11.42) Active confirmed Vital Signs Blood pressure diastolic 65 mm Hg 06/28/2025 Height 5ft 9in in 06/28/2025 Blood pressure systolic 125 mm Hg 06/28/2025 Weight 261 lbs 06/28/2025 BMI 38.54 kg/m2 06/28/2025 Procedures Procedure Date Ordered Date Performed Result Body Sit e 13669-KQJBYRA NAIL, 6 OR MORE 07/19/2024 N/A 41478-BJYY SKIN LESIONS, 2 TO 4 07/19/2024 N/A 31713-ICUOSMK NAIL, 6 OR MORE 10/24/2024 N/A 32873-LAOV SKIN LESIONS, 2 TO 4 10/24/2024 N/A 13857-MMJXXNA NAIL, 6 OR MORE 03/28/2025 N/A 22325-KAYN SKIN LESIONS, 2 TO 4 03/28/2025 N/A 19162-XEYGIRG NAIL, 6 OR MORE 06/28/2025 N/A 57921-ANFR SKIN LESIONS, 2 TO 4 06/28/2025 N/A Encounters Encounter Location Date Provider Diagnosis [address] [address] 07/19/2024 Chantel Infante Type 2 diabetes mellitus with diabetic polyneuropathy E11.42 and Tinea unguium B35.[address] [address] 10/24/2024 Rayshawn Avendaño Type 2 diabetes mellitus with diabetic polyneuropathy E11.42 and Tinea unguium B35.[address] [address] 03/28/2025 Chantel Infante Type 2 diabetes mellitus with diabetic polyneuropathy E11.42 and Tinea unguium B35.[address] [address] 06/28/2025 Chantel Infante Type 2 diabetes mellitus with diabetic polyneuropathy E11.42 and Tinea unguium B35.[address] [address] 02/09/2025 Chantel Infante Assessments Encounter Date Diagnosis (ICD Code) Assessment Notes Treatment Notes Treatment Clinical Notes Section Notes 07/19/2024 Type 2 diabetes mellitus with diabetic polyneuropathy (ICD-10 - E11.42) 07/19/2024 Tinea unguium (ICD-10 - B35.1) 10/24/2024 Type 2 diabetes mellitus with diabetic polyneuropathy (ICD-10 - E11.42) 03/28/2025 Type 2 diabetes mellitus with diabetic polyneuropathy (ICD-10 - E11.42) 06/28/2025 Type 2 diabetes mellitus with diabetic polyneuropathy (ICD-10 - E11.42) 06/28/2025 Tinea unguium (ICD-10 - B35.1) 03/28/2025 Tinea unguium (ICD-10 - B35.1) 10/24/2024 Tinea unguium (ICD-10 - B35.1) Plan Of Treatment Pending Test Test Name Order Date *Liver Function Test (LFT) 12/16/2016 18602-PMOZUXJ NAIL, 6 OR MORE 03/17/2017 79923-ISOWQCQ NAIL, 6 OR MORE 06/16/2017 14690-WYJAKNA NAIL, 6 OR MORE 09/15/2017 35725-CLGNIVO NAIL, 6 OR MORE 12/15/2017 40868-BSLEPMG NAIL, 6 OR MORE 03/21/2018 37493-VVWHVWF NAIL, 6 OR MORE 06/27/2018 35194-KEXFNXX NAIL, 6 OR MORE 07/19/2024 77661-VOUPAAF NAIL, 6 OR MORE 10/24/2024 92942-VHKGOJC NAIL, 6 OR MORE 03/28/2025 31277-NSATJYN NAIL, 6 OR MORE 06/28/2025 20291-PFBMEVX NAIL, 6 OR MORE 12/16/2016 10968-JUUU SKIN LESIONS, OVER 4 09/28/19 19 01637-XJLP SKIN LESIONS, OVER 4 06/27/20 18 11049-SPIH SKIN LESIONS, OVER 4 03/21/20 18 68309-NUUF SKIN LESIONS, OVER 4 03/29/20 19 56049-SMUU SKIN LESIONS, OVER 4 07/03/20 19 80201-DJUD SKIN LESIONS, OVER 4 10/09/19 20 05859-BHWB SKIN LESIONS, OVER 4 01/10/20 20 40031-EZNP SKIN LESIONS, OVER 4 04/10/20 20 58247-ZCSX SKIN LESIONS, OVER 4 07/10/20 20 75652-MCTF SKIN LESIONS, OVER 4 10/02/19 21 35437-YEMW SKIN LESIONS, OVER 4 01/02/20 21 99002-YVAF SKIN LESIONS, OVER 4 04/03/20 21 46153-CZFL SKIN LESIONS, OVER 4 07/16/20 21 21834-CHOY SKIN LESIONS, OVER 4 11/13/19 22 89655-QSXA SKIN LESIONS, 2 TO 4 12/16/19 18 64356-CHDZ SKIN LESIONS, 2 TO 4 01/05/20 19 05261-KQZL SKIN LESIONS, 2 TO 4 07/19/20 24 17865-PCLV SKIN LESIONS, 2 TO 4 03/28/20 25 49855-AQTW SKIN LESIONS, 2 TO 4 10/24/19 25 53832-JMOA SKIN LESIONS, 2 TO 4 06/28/20 25 17071-TQXEQUZS OF HEMATOMA/FLUID 023 Next Appt Details Provider Name:Chantel Askew allison, 09/27/2025 03:30:00 PM, [address] [place], [address], Insurance Providers Payer Name Payer Address Payer Phone Subscriber Number Group Number Insured Name Patient Relationship to Insured Coverage Start Date Coverage End Date Medicare National [employer]t [employer] [address] [place] [address] [id number] AlexanderSuresh dallasald Self - patient is the insured 2 [employer] [address] [place] [address] [id number] Festus Munoz Self - patient is the insured Medical (General) History Medical History History ICD Code Arthritis Back,Hip,and Knee pain Broken bones Measles Mumps Chicken pox Joint implants/screws COPD type II diabetes Surgical History Surgery Date(Month/Year) total right hip replacement 07/13/2014 right knee replacement 07/31/2015 Total left knee replacement 11/13/2015 femur 08/11/2016 Full Pericardiectomy 08/14/1998 left hip replacement 02/2025 Hospitalization History Reason Date(Month/Year)
--- OUTSIDE RECORDS SUMMARY | 2025-07-09 18:05 | XMS_ITS | Patient Health Record ---
Author Organization [facility] Address [address] [place] [address] Care Team Providers Care Adjunct Nursing Faculty Name Role Phone Daniel Romano MD Primary Care Provider Mac Rose [phone] Allergies Allergen (clinical drug ingredient) Drug/Non Drug [...] Problem Status W/U Status Risk Notes Problem Screening for malignant neoplasm of colon (624044569) Encounter for screening for malignant neoplasm of colon (Z12.11) Active confirmed Problem Long-term current use of aspirin (479447612125748 ) Aspirin long-term use (Z79.82) Active confirmed Problem Essential hypertension (82555230) Hypertension, unspecified type (I10) Active confirmed Plan Of Treatment Future Test Test Name Order Date COLONOSCOPY 12/30/2017 Insurance Providers Payer Name Payer Address Payer Phone Subscriber Number Group Number Insured Name Patient Relationship to Insured Coverage Start Date Coverage End Date MEDICARE OF [place] [address] [place] [address] [id number] VEE SAL Self - patient is the insured MEDICAID OF [facility] [address] [place] [address] [id number] VEE SAL Self - patient is the insured Medical (General) History Medical History History ICD Code Denies NV,CVA,renal disease COPD NIDDM Neuropathy in feet Sleep apnea--uses CPAP Negative colonoscopies in 31 12 and 2006 other than diverticulosis and internal hemorrhoids Surgical History Surgery Date(Month/Year) Left knee replacement 2016 Right knee replacement 2014 Right hip replacement 2013 Metal plates due to femur surgery 2016 Pericarditis with pericardectomy in the Rectal fistula Lumbar disc
== END 2025-07-09 15:56 | disposition home or self-care (01) ==
LOC: HO.HOS 14:29
PROVIDERS: PCP Internal Medicine; Visit Provider Orthopaedic Surgery
DX: Z96.642 Presence of left artificial hip joint (principal)
CPT/HCPCS: 99024

== ENCOUNTER → 2025-07-09 14:28 | Outpatient (BNVA) | payer MEDICARE, SELFPAY | PROVIDERS: PCP Internal Medicine; Visit Provider Orthopaedic Surgery | DX: Z47.1 Aftercare following joint replacement surgery (principal); Z96.642 Presence of left artificial hip joint | CPT/HCPCS: 99212 ==

== ENCOUNTER 2025-07-14 12:46 | Emergency (ER) | payer MEDICARE, SELFPAY ==
--- OUTSIDE RECORDS SUMMARY | 2024-03-30 05:00 | XMS_ITS ---
Author Organization [facility] Address [address] [place] [address] Care Team Providers Care Feather Separator Name Role Phone Daniel Romano Primary Care Provider Chantel Smith Unavailable [phone] Chi King [phone] prado Encounters Encounter Location Date Provider Diagnosis [address] [address] 03/30/2024 Chi King Plan Of Treatment Next Appt Details Provider Name:Chantel cooper, 09/27/2025 03:30:00 PM, [address] [place], [address], Progress Notes * Festus MUNOZDOB:1950 ( 75 yo M)Acc No.[id number]:03/30/2024 Progress Note Patient: Festus BARRIENTOS Provider: Jitendra Bynum DPM :1950 A ge:73 Y S ex:Male Date:03/30/2024 Address[place] Pcp:Daniel Romano Subjective: * Chief Complaints: * [...] 0 03/30/2024 Generated for Lorrie Hernandez/Barbara on: 09/13/2024 01:47 PM EDT
--- OUTSIDE RECORDS SUMMARY | 2024-10-19 05:15 | XMS_ITS ---
Author Organization [facility] [place] Address [address] [place] [address] Care Team Providers Care Rip Saw Operator Name Role Phone Daniel Romano Primary Care Provider Chantel Smith Unavailable [phone] Allergies Allergen (clinical drug ingredient) Drug/Non Drug Allergy documented on EMR Reaction Allergy Type Onset Date Status Lamisil sick Drug Allergy Active Medications Medication SIG (Take, Route, Frequency, Duration) Notes Start Date End Date Status Diflucan 200 MG 1 tablet Orally Once a week; Duration: 30 days Not-Taking flovent HFA prn Not-Taki ng Tylenol 650mg 2 pills Not-Ta lul Ozempic (0.25 or 0.5 MG/DOSE) Once a week Not-Taking Ventolin HFA 108 (90 Base) MCG/ACT Inhalation PRN PRN Not-Taking Simvastatin 20 MG Orally Ac tive traZODone HCl 100 MG 1 tablet at bedtime Orally Once a day Active Ciclopirox Olamine 0.77 % 1 application to affected area Externally Twice a day to effected areas on feet; Duration: 30 days 04/17/2024 Active Aspirin 81 MG 1 tablet Orally Once a day Not-Taking Extra Depth Diabetic Shoes with 3 Pair Custom heat-molded multi-density innersoles for 1 year Dx: Active metFORMIN HCl 500 MG Orally Twice a day Active Multivitamin Active Gabapentin 600 MG Orally Bedtime Active Lisinopril Active Glucosamine Active Ozempic Active Fluticasone Propionate 50 MCG/ACT 2 sprays (1 spray in each nostril) Nasally Once a day Active Amoxicillin 500 MG 4pills Orally Prevent infection (dentist & surgery) PRN Active Ciclopirox Olamine 0.77 % 1 application to affected area Externally Twice a day to effected areas on feet; Duration: 30 days Active Encounters Encounter Location Date Provider Diagnosis [facility] [address] [address] 10/19/2024 Chantel Infanet Plan Of Treatment Next Appt Details Provider Name:Chantel Askew allison, 09/27/2025 03:30:00 PM, [address] [place] [address], [address], Progress Notes * Festus MUNOZDOB:1950 ( 75 yo M)Acc No.[id number]:10/19/2024 Progress Note Patient: Festus BARRIENTOS Provider: Rosemary Infante DPM :1950 A ge:74 Y S ex:Male Date:10/19/2024 Address:[address] [place], [place] [address] [place] Pcp:Daniel Romano Subjective: * Chief Complaints: * * Medical History: A rthritis, Back,Hip,and Knee pain, Broken bones, Measles, Mumps, Chicken pox, Joint implants/screws, COPD, type II diabetes. * Medications: T blancag Ozempic , Taking Amoxicillin 500 MG 4pills Orally Prevent infection (dentist & surgery) , Notes to Pharmacist: PRN, Taking Ciclopirox Olamine 0.77 % Cream 1 application to affected area Externally Twice a day to effected areas on feet , Taking Fluticasone Propionate 50 MCG/ACT Suspension 2 sprays (1 spray in each nostril) Nasally Once a day , Taking Glucosamine , Taking Gabapentin 600 MG Tablet Orally Bedtime , Taking Lisinopril , Taking metFORMIN HCl 500 MG Tablet Orally Twice a day , Taking Multivitamin , Taking Simvastatin 20 MG Tablet Orally , Taking traZODone HCl 100 MG Tablet 1 tablet at bedtime Orally Once a day , Taking Extra Depth Diabetic Shoes with 3 Pair Custom heat-molded multi-density innersoles for 1 year Dx: , Taking Ciclopirox Olamine 0.77 % Cream 1 application to affected area Externally Twice a day to effected areas on feet , Not-Taking/PRN Aspirin 81 MG Tablet Chewable 1 tablet Orally Once a day , Not-Taking/PRN Ozempic (0.25 or 0.5 MG/DOSE) , Notes to Pharmacist: Once a week, Not-Taking/PRN Ventolin HFA 108 (90 Base) MCG/ACT Aerosol Solution Inhalation PRN , Notes to Pharmacist: PRN, Not-Taking/PRN flovent HFA prn , Not-Taking/PRN Tylenol 650mg 2 pills , Not-Taking/PRN Diflucan 200 MG Tablet 1 tablet Orally Once a week * Allergies: L amisil: sick. Objective: * Vitals: Assessment: Plan: * Treatment: * Images: * The named appointment provid er may or may not be the originator of this progress note, and it is not deemed complete until electronically signed by the appointment provider. Sign off status: Pending * Provider: Rosemary Infante DPM Date: 0 10/19/2024 Generated for Lorrie schaefer/Tequila/Barbara on: 09/13/2024 01:47 PM EDT
--- OUTSIDE RECORDS SUMMARY | 2025-02-12 10:30 | XMS_ITS ---
Author Organization [facility] [place] Address [address] [place] [address] Care Team Providers Care Criminal Justice Instructor Name Role Phone Daniel Romano Primary Care Provider Chantel Smith Unavailable [phone] Medications Medication SIG (Take, Route, Frequency, Duration) [...] Not-Taking Encounters Encounter Location Date Provider Diagnosis [facility] [address] [address] 02/12/2025 Chantel Infante Plan Of Treatment Next Appt Details Provider Name:Chantel cooper, 09/27/2025 03:30:00 PM, [address] [place], [address], Progress Notes * ALEXANDERFestusDOB:1950 ( 75 yo M)Acc No.[id number]:02/12/2025 Progress Note Patient: Festus BARRIENTOS Provider: Rosemary Infante DPM :1950 A ge:74 Y S ex:Male Date:02/12/2025 Address:[address] [place] [address], [id number] Pcp:Daniel Romano Subjective: * Chief Complaints: * [...] 0 02/12/2025 Generated for Lorrie schaefer/Tequila/Barbara on: 09/13/2024 01:47 PM EDT
--- NOTE | ~2025-07-14 | CT_ITS ---
CLINICAL HISTORY: fall hit head CT cervical spine without contrast Comparison: CT/SR - CT CERVICAL SPINE WO IV CON - 12/15/24 16:36 EDT Findings: Normal vertebral body alignment. Multilevel disc space narrowing and endplate osteophyte formation, as well as facet hypertrophy. No acute fractures or dislocations. Visualized intracranial contents are unremarkable. Soft tissues of the neck are normal. No consolidation or effusion at the lung apices. IMPRESSION: No acute findings. This document has been electronically signed by: Eyad Gunter MD on 07/14/2025 16:22:24
--- NOTE | ~2025-07-14 | CT_ITS ---
CLINICAL HISTORY: fall, it head CT head without contrast Comparison: CT/SR - CT HEAD/BRAIN WO IV CON - 12/15/24 16:36 EDT Findings: No intra-axial mass, midline shift, hydrocephalus, or acute hemorrhage. Age appropriate cerebral volume loss. Patchy low-density within the periventricular and subcortical white matter. There is no sinus or mastoid fluid. The orbits are unremarkable. No skull fracture. IMPRESSION: 1. No acute intracranial findings. This document has been electronically signed by: Eyad Gunter MD on 07/14/2025 16:03:56
[2025-07-14 12:45] VITALS: BP 147/86; PULSE 60; O2SAT 97
[2025-07-14 12:53] VITALS: BP 133/57; PULSE 85; RESP 20; TEMP 36.5; O2SAT 94; BMI 40.5
--- NOTE | 2025-07-14 13:01 | ED.FALL ---
HPI - Fall General Chief Complaint: Fall Stated Complaint: TRIP/FALL,HIT HEAD,SKIN TEAR L HAND PER EMS Time Seen by Provider: 07/14/25 13:06 Source: patient and EMS Mode of arrival: EMS Limitations: no limitations History of Present Illness ED Provider: Bianka Ward APRN HPI Narrative: 75-year-old male with a history of congestive heart failure, hypertension, high cholesterol presents the ER after trip and fall outside. Patient reports he was at his granddaughter's soccer game when he tripped hitting his face and left hand on the ground. Denies LOC. No AC therapy. Has no headache, neck pain, back pain, chest pain, abdominal making, vision changes, vomiting. Tetanus up-to-date. Has abrasions to left hand, left face and forehead Related Data Home Medications ?Medication ?Instructions ?Recorded ?Confirmed CPAP #1 ea 12/03/20 05/03/25 cholecalciferol (vitamin D3) 50 50 mcg PO DAILY 02/06/25 05/03/25 mcg (2,000 unit) capsule (Vitamin D3) gabapentin 600 mg tablet 600 mg PO BEDTIME 02/06/25 05/03/25 quorbayctdcf-nklxitea-jfsvpb 1 tab PO DAILY 02/06/25 05/03/25 tablet (Multivitamin 50 Plus tablet) fluticasone propionate 50 2 spray intranasal BID PRN Nasal 04/13/25 05/03/25 mcg/actuation nasal Congestion spray,suspension furosemide 20 mg tablet 20 mg PO MOWEFR@0900 04/13/25 05/03/25 semaglutide 2 mg/dose (8 mg/3 mL) 2 mg subcut STRATTON 04/13/25 05/03/25 subcutaneous pen injector (Ozempic) Previous Rx's ?Medication ?Instructions ?Recorded lisinopril 5 mg tablet 5 mg PO DAILY #90 tabs 01/09/25 trazodone 100 mg tablet 100 mg PO BEDTIME 90 days #90 tabs 01/09/25 simvastatin 40 mg tablet 40 mg PO BEDTIME #90 tabs 01/23/25 acetaminophen 325 mg tablet 650 mg (2 x 325 mg) PO Q6H PRN 04/19/25 Pain, Mild 1-3,Fever,Headache 30 days #240 tabs aspirin 325 mg tablet 325 mg PO BID 42 days #84 tabs 04/19/25 lactulose 10 gram/15 mL oral 30 ml PO BID #2,880 mL 05/27/25 solution Allergies Allergy/AdvReac Type Severity Reaction Status Date / Time terbinafine (From LAMISIL) AdvReac Intermediate GI UPSET Verified 07/14/25 12:55 Lamisil Allergy Unknown Stomach Uncoded 06/11/25 15:40 Upset Review of Systems Review of Systems: Yes all other systems are reviewed and are negative Constitutional: Constitutional: Reports no additional constitutional complaints, Denies body ache(s), Denies chills, Denies fever(s), Denies headache(s) and Denies weakness Eyes: Eyes: Reports no additional eye complaints and Denies change in vision ENT: Reports system reviewed and no additional complaints, except as documented, Denies dizziness, Denies headache(s), Denies nasal congestion, Denies nasal discharge and Denies neck pain Cardiovascular: Cardiovascular: Reports no additional cardiovascular complaints, Denies chest pain, Denies leg edema and Denies dyspnea Respiratory: Respiratory: Reports no additional respiratory complaints, Denies cough and Denies dyspnea Gastrointestinal: Gastrointestinal: Reports no additional gastrointestinal complaints, Denies abdominal pain, Denies diarrhea, Denies nausea and Denies vomiting Genitourinary: Genitourinary: Denies urinary incontinence Musculoskeletal: Musculoskeletal: Reports no additional musculoskeletal complaints, Denies back pain, Denies arthralgias, Denies joint swelling, Denies neck pain, Denies numbness and Denies tingling Integumentary/Breasts: Skin/Breast: Reports system reviewed and no additional complaints, except as docu and Denies rash Neurologic: Reports system reviewed and no additional complaints, except as documented, Denies Abnormal speech present, Denies dizziness, Denies headache(s), Denies numbness, Denies tingling and Denies weakness PMF Past Medical History Attestation statement: The following information was validated with the patient. Source: nursing notes reviewed Medical History (Updated 07/14/25 @ 16:08 by Bianka Ward NP) Impacted cerumen of both ears Lung nodule SOB (shortness of breath) on exertion Aortic dilatation Cholelithiasis Obstructive sleep apnea Erectile dysfunction Hypercholesterolemia Peripheral neuropathy Asthma Type 2 diabetes mellitus with hyperglycemia Chronic low back pain Hypertension Surgical History (Updated 05/07/25 @ 00:38 by HIEU Cosby) S/P ORIF (open reduction internal fixation) fracture History of left knee replacement History of total right knee replacement History of right hip replacement History of pericardiectomy H/O lumbar discectomy Family History Family History Mother Mental health disorder Social History Social History Household Members: Spouse Housing: House Do you presently have visiting nurse or other home services: Yes Alcohol intake: current Alcohol intake frequency: holidays/special occasions only Comment: COUNTS CORRECT Patient Tobacco Use Status: Former Tobacco user Tobacco use type: Cigarette Years Smoked: 1994 e-Cigarette/Vaping Use: Never Used Second Hand Smoke Exposure: Yes Advance Directives: Yes Advance Directives on File: Yes Advance Directives Date on File: 12/26/21 service: Yes Current occupational status: retired Cognitive needs: No Hearing needs: Yes Vision needs: Yes Physical Exam Vital Signs: Vital Signs: Last Vital Signs Temp 97.8 F 07/14/25 15:33 Pulse 118 H 07/14/25 15:33 Resp 18 07/14/25 15:33 BP 115/64 07/14/25 15:33 Pulse Ox 97 07/14/25 15:33 O2 Del Method Room Air 07/14/25 15:33 BMI result Body Mass Index 40.5 Const: General: cooperative, healthy appearing, comfortable and no acute distress Orientation/consciousness: patient oriented x3 Limitations: no limitations HEENT: Other: No hemotympanum Abrasion to right hip Abrasion to left periorbital area Head: Yes normal to inspection, No Mitchell's sign and No raccoon eyes Ears: hearing grossly normal bilaterally and TM's normal bilaterally General nose exam: Normal external nose present Face and sinus: Yes normal facial exam Mouth: Normal oral and palatal mucosa present Throat: Yes posterior oropharynx normal Eyes: General: appearance normal, both eyes and all related structures Pupils: Equal, round and reactive pupils present Neck: Other: No cervical midline tenderness, step-offs or deformities Neck: Yes normal visual inspection, Yes full ROM, Yes no lymphadenopathy and Yes no meningeal signs Chest: Chest palpation & inspection: normal inspection of the chest Resp: Effort & Inspection: normal respiratory effort Auscultation: clear to auscultation bilaterally Cardio: Rate: regular rate Rhythm: regular rhythm Peripheral pulses: Peripheral pulses 2+ throughout GI: Inspection: Yes normal to inspection Palpation (GI): Soft to palpation and nontender Auscultation: normal bowel sounds Back/Spine/Pelvis: Thoracic/Lumbar Spine: thoracic and lumbar spine normal to inspection Skin: General skin exam: no rashes or lesions noted Neuro: General: patient oriented x3, moves all extremities, no meningeal signs, no focal motor deficits and normal sensation to monofilament Cranial nerves: Yes CN's II-XII intact bilaterally, Yes Equal, round and reactive pupils present, Yes Bilaterally intact EOM present, Yes Nystagmus not present, Yes Normal facial strength present and Yes Midline tongue present Cognition (Neuro): normal cognition Speech: No Abnormal speech present Gait exam (Neuro): Normal gait present Motor exam (neuro): 5/5 motor strength present throughout Sensory Exam: Normal double simultaneous stimulation for sensation Extrem: Other: Skin tear to the left dorsal hand Full active and passive range of motion of the extremities General: Yes normal to inspection Course Course Course Narrative: CT head and cervical spine are negative. The patient has abrasions and skin tear were cleansed by nursing and bandages were applied. Reviewed head injury care at home. Reviewed worrisome signs and symptoms of when to return to the emergency room. Comfortable plan for discharge home Medical Decision Making Medical Decision Making MDM Narrative: 75-year-old male with a history of congestive heart failure, hypertension, high cholesterol presents the ER after trip and fall outside. Patient reports he was at his granddaughter's soccer game when he tripped hitting his face and left hand on the ground. Denies LOC. No AC therapy. Has no headache, neck pain, back pain, chest pain, abdominal making, vision changes, vomiting. Tetanus up-to-date. Has abrasions to left hand, left face and forehead Normal neuro exam with no focal deficit Abrasions to the forehead, left periorbital area and skin here to the left hand Due to age will obtain CT head and CT cervical spine Differential Diagnosis Differential Diagnoses: The differential diagnosis associated with the presentation includes Abrasion, contusion Low suspicion for ICH, basilar skull fracture, cervical fracture Admission/Observation Consideration of admission/observation: Escalation of care including admission/observation considered Independent Interpretation I performed an independent interpretation of an: CT Scan Interpretation: I independently viewed the CT scan agree with the radiology report Radiology Impression Discussion of test interpretation with radiology: I have reviewed the radiologist's reading. Radiologist Impression: [place] [id number] CT Scan Report Signed Patient: Festus Munoz MR#: [id number] : 1950 Acct:[id number] Age/Sex: 75 / M ADM Date: 07/14/25 Loc: HO.ED Attending Dr: Ordering Physician: Bianka Ward NP Date of Service: 07/14/25 Procedure(s): CT cervical spine wo IV con Accession Number(s): [id number] cc: Bianka Ward NP; Daniel Romano MD~ Report Number: [id number]: Total DLP = 571.00 mGy-cm Reason for Exam: fall hit head CLINICAL HISTORY: fall hit head CT cervical spine without contrast Comparison: CT/SR - CT CERVICAL SPINE WO IV CON - 12/15/24 16:36 EDT Findings: Normal vertebral body alignment. Multilevel disc space narrowing and endplate osteophyte formation, as well as facet hypertrophy. No acute fractures or dislocations. Visualized intracranial contents are unremarkable. Soft tissues of the neck are normal. No consolidation or effusion at the lung apices. IMPRESSION: No acute findings. This document has been electronically signed by: Eyad Gunter MD on 07/14/2025 16:22:[address] [address] [address] Scan Report Signed Patient: Festus Munoz MR#: [id number] : 1950 Acct:[id number] Age/Sex: 75 / M ADM Date: 07/14/25 Loc: .ED Attending Dr: Ordering Physician: Bianka Ward NP Date of Service: 07/14/25 Procedure(s): CT head/brain wo IV con Accession Number(s): [id number] cc: Bianka Ward NP; Daniel Romano MD~ Report Number: [id number]: Total DLP = 667.00 mGy-cm Reason for Exam: fall, it head CLINICAL HISTORY: fall, it head CT head without contrast Comparison: CT/SR - CT HEAD/BRAIN WO IV CON - 12/15/24 16:36 EDT Findings: No intra-axial mass, midline shift, hydrocephalus, or acute hemorrhage. Age appropriate cerebral volume loss. Patchy low-density within the periventricular and subcortical white matter. There is no sinus or mastoid fluid. The orbits are unremarkable. No skull fracture. IMPRESSION: 1. No acute intracranial findings. This document has been electronically signed by: Eyad Gunter MD on 07/14/2025 16:03:56 Independent Historian Clinical information obtained from an independent historian. History obtained from or confirmed by: Spouse Discharge Plan Discharge Clinical Impression: Skin tear of left hand without complication, Abrasion of face Patient Disposition: Home, Self-Care Instructions: Abrasion (ED) Additional Instructions: Your CT scan of the head and neck are normal You do have abrasions. Keep them clean covered and dry Monitor for signs of infection return for redness, drainage, swelling Prescriptions: No Action trazodone 100 mg tablet 100 mg PO BEDTIME 90 Days Qty: 90 3RF lisinopril 5 mg tablet 5 mg PO DAILY Qty: 90 3RF simvastatin 40 mg tablet 40 mg PO BEDTIME Qty: 90 3RF lactulose 10 gram/15 mL solution 30 ml PO BID Qty: 2880 6RF Multivitamin 50 Plus Tablet 1 tab PO DAILY cholecalciferol (vitamin D3) [Vitamin D3] 50 mcg (2,000 unit) Capsule 50 mcg PO DAILY gabapentin 600 mg tablet 600 mg PO BEDTIME furosemide 20 mg tablet 20 mg PO MOWEFR@0900 Ozempic 2 mg/dose (8 mg/3 mL) pen injector 2 mg SUBCUT STRATTON fluticasone propionate 50 mcg/actuation spray,suspension 2 spray intranasal BID PRN (Reason: Nasal Congestion) aspirin 325 mg Tablet 325 mg PO BID 42 Days Qty: 84 0RF acetaminophen 325 mg Tablet 650 mg PO Q6H PRN (Reason: Pain, Mild 1-3,Fever,Headache) 30 Days Qty: 240 0RF (DME) CPAP 0 .Route .MEDSUPPLY Qty: 1 Referrals: Po,Daniel Conrad MD [Primary Care Provider, Internal Medicine] Print Language: Georgian
--- OUTSIDE RECORDS SUMMARY | 2025-07-14 13:47 | XMS_ITS | Patient Health Record ---
Author Organization [facility] Address [address] [place] [address] Care Team Providers Care Vegetable Farmer Name Role Phone Daniel Romano Primary Care Provider Chantel Smith Unavailable [phone] Rayshawn Avendaño Unavailable [phone] Allergies Allergen (clinical drug ingredient) Drug/Non Drug [...] Polyneuropathy due to type 2 diabetes mellitus (568455398) Type 2 diabetes mellitus with diabetic polyneuropathy (E11.42) Active confirmed Vital Signs Blood pressure diastolic 65 mm Hg 06/28/2025 Height 5ft 9in in 06/28/2025 Blood pressure systolic 125 mm Hg 06/28/2025 Weight 261 lbs 06/28/2025 BMI 38.54 kg/m2 06/28/2025 Procedures Procedure Date Ordered Date Performed Result Body Sit e 46108-CBOZIKZ NAIL, 6 OR MORE 07/19/2024 N/A 98156-LRUZ SKIN LESIONS, 2 TO 4 07/19/2024 N/A 14483-ATRQCFX NAIL, 6 OR MORE 10/24/2024 N/A 77035-SOHX SKIN LESIONS, 2 TO 4 10/24/2024 N/A 45086-BXBTLXU NAIL, 6 OR MORE 03/28/2025 N/A 40884-HEHF SKIN LESIONS, 2 TO 4 03/28/2025 N/A 37997-ZILSHDL NAIL, 6 OR MORE 06/28/2025 N/A 52982-GTSA SKIN LESIONS, 2 TO 4 06/28/2025 N/A Encounters Encounter Location Date Provider Diagnosis [address] [address] 07/19/2024 Chantel Infante Type 2 diabetes mellitus with diabetic polyneuropathy E11.42 and Tinea unguium B35.[address] [address] 10/24/2024 Rayshawn Avendaño Type 2 diabetes mellitus with diabetic polyneuropathy E11.42 and Tinea unguium B35.[address] [address] 03/28/2025 Chantel Infante Type 2 diabetes mellitus with diabetic polyneuropathy E11.42 and Tinea unguium B35.[address] [address] 06/28/2025 Chantel Infante Type 2 diabetes mellitus with diabetic polyneuropathy E11.42 and Tinea unguium B35.[address] [address] 02/09/2025 Chantel Infante Assessments Encounter Date Diagnosis [...] Order Date *Liver Function Test (LFT) 12/16/2016 59789-IIJJCOF NAIL, 6 OR MORE 03/17/2017 06376-DLHNDDT NAIL, 6 OR MORE 06/16/2017 09424-CDJCOEK NAIL, 6 OR MORE 09/15/2017 67100-UGLXAKI NAIL, 6 OR MORE 12/15/2017 66031-CMOQUBN NAIL, 6 OR MORE 03/21/2018 75160-EKVLWHP NAIL, 6 OR MORE 06/27/2018 01498-MDNORKK NAIL, 6 OR MORE 07/19/2024 32122-VFTAUSF NAIL, 6 OR MORE 10/24/2024 56227-YBZXJYV NAIL, 6 OR MORE 03/28/2025 28936-UEUDWUX NAIL, 6 OR MORE 06/28/2025 83243-LFVTJFC NAIL, 6 OR MORE 12/16/2016 10547-SMZV SKIN LESIONS, OVER 4 09/28/19 19 36860-IKKJ SKIN LESIONS, OVER 4 06/27/20 18 79828-VEVR SKIN LESIONS, OVER 4 03/21/20 18 69730-VMER SKIN LESIONS, OVER 4 03/29/20 19 18588-JUPA SKIN LESIONS, OVER 4 07/03/20 19 95139-HJXB SKIN LESIONS, OVER 4 10/09/19 20 61864-CRRL SKIN LESIONS, OVER 4 01/10/20 20 41818-WTHU SKIN LESIONS, OVER 4 04/10/20 20 31741-DPJW SKIN LESIONS, OVER 4 07/10/20 20 25645-VHDH SKIN LESIONS, OVER 4 10/02/19 21 11121-PMUO SKIN LESIONS, OVER 4 01/02/20 21 63996-BPXR SKIN LESIONS, OVER 4 04/03/20 21 41702-YVFO SKIN LESIONS, OVER 4 07/16/20 21 25769-XARX SKIN LESIONS, OVER 4 11/13/19 22 15093-FXMQ SKIN LESIONS, 2 TO 4 12/16/19 18 58450-ZXBB SKIN LESIONS, 2 TO 4 01/05/20 19 20433-CUXN SKIN LESIONS, 2 TO 4 07/19/20 24 95776-LJQW SKIN LESIONS, 2 TO 4 03/28/20 25 02919-QYJI SKIN LESIONS, 2 TO 4 10/24/19 25 44781-KGLR SKIN LESIONS, 2 TO 4 06/28/20 25 91184-JWEDKTKU OF HEMATOMA/FLUID 023 Next Appt Details Provider Name:Chantel Askew allison, 09/27/2025 03:30:00 PM, [address] [place], [address], Insurance Providers Payer Name Payer Address Payer Phone Subscriber Number Group Number Insured Name Patient Relationship to Insured Coverage Start Date Coverage End Date Medicare National [employer] [address] [place] [address] [id number] AlexanderSuresh dallasald Self - patient is the insured 2 [employer] [address] [place] [address] [id number] Festus Munoz Self - patient is the [...]
--- OUTSIDE RECORDS SUMMARY | 2025-07-14 13:47 | XMS_ITS | Patient Health Record ---
Author Organization [facility] Address [address] [place] [address] Care Team Providers Care Foam Molder Name Role Phone Daniel Romano MD Primary Care Provider Mac Rose [phone] Allergies Allergen (clinical drug ingredient) Drug/Non Drug [...] Problem Screening for malignant neoplasm of colon (388433657) Encounter for screening for malignant neoplasm of colon (Z12.11) Active confirmed Problem Long-term current use of aspirin (936822641206982 ) Aspirin long-term use (Z79.82) Active confirmed Problem Essential hypertension (82064196) Hypertension, unspecified type (I10) Active confirmed Plan Of Treatment Future Test Test Name Order Date COLONOSCOPY 12/30/2017 Insurance Providers Payer Name Payer Address Payer Phone Subscriber Number Group Number Insured Name Patient Relationship to Insured Coverage Start Date Coverage End Date MEDICARE OF [place] [address] [place] [address] [id number] VEE SAL Self - patient is the insured MEDICAID OF [facility] [address] [place] [address] [id number] VEE SAL Self - patient is the insured Medical (General) History Medical History History ICD Code Denies ND,CVA,renal disease COPD NIDDM Neuropathy in feet Sleep apnea--uses CPAP Negative colonoscopies in 31 12 and 2006 other than diverticulosis and internal hemorrhoids Surgical History Surgery Date(Month/Year) Left knee replacement 2016 Right knee replacement 2014 Right hip replacement 2013 Metal plates due to femur surgery 2016 Pericarditis with pericardectomy in the Rectal fistula Lumbar disc
[2025-07-14 15:33] VITALS: BP 115/64; PULSE 118; RESP 18; TEMP 36.6; O2SAT 97
[2025-07-14 16:55] VITALS: BP 123/81; RESP 18; O2SAT 97
[2025-07-14 17:00] VITALS: BP 123/80; PULSE 114; RESP 16; TEMP -17.7; TEMP 0; O2SAT 97
== END 2025-07-14 17:03 | disposition home or self-care (01) ==
PROVIDERS: Emergency Provider Emergency Medicine Emergency Medical Services; PCP Internal Medicine
DX: S00.81XA Abrasion of other part of head, initial encounter (principal); S60.512A Abrasion of left hand, initial encounter; W18.30XA Fall on same level, unspecified, initial encounter; Y93.9 Activity, unspecified; Y92.9 Unspecified place or not applicable; Y99.9 Unspecified external cause status; I10 Essential (primary) hypertension
CPT/HCPCS: 70450; 72125; 99284

== ENCOUNTER → 2025-07-14 13:05 | Outpatient (BNV) | payer MEDICARE, SELFPAY | PROVIDERS: Emergency Provider Emergency Medicine Emergency Medical Services; PCP Internal Medicine; Visit Provider Radiology Diagnostic Radiology | DX: S09.90XA Unspecified injury of head, initial encounter (principal); W18.39XA Other fall on same level, initial encounter | CPT/HCPCS: 70450; 72125 ==